=== PATIENT | female | born 1995 | race Caucasian/White ===

== ENCOUNTER 2023-03-19 09:26 | Emergency (ER) | payer BC, SELFPAY ==
--- NOTE | ~2023-03-19 | US_ITS ---
EXAMINATION:US venous doppler LE BI INDICATION:Bilateral leg swelling TECHNIQUE: Multiple grayscale, color flow and Doppler images of the right and left lower extremity de ep venous systems were obtained and reviewed. COMPARISON:No prior studies for comparison. FINDINGS: The common femoral, superficial femoral and popliteal veins demonstrate normal respiratory variation, augmentation and compressibility. Color flow is also seen within the posterior tibial, pe roneal, greater saphenous and profunda veins. IMPRESSION: 1: No lower extremity deep venous thrombosis. Reviewed, dictated and finalized at location A.
[2023-03-19 09:30] VITALS: BP 133/88; PULSE 92; RESP 16; TEMP 36.8; O2SAT 100
--- NOTE | 2023-03-19 09:50 | ED.GENADULT ---
HPI - General Adult General Chief complaint: Extremity Problem,Nontraumatic Stated complaint: itchy swollen feet Time Seen by Provider: 03/19/23 09:34 History of Present Illness HPI narrative: Paige Zavaleta is a 27 y/o female who presents with reports of dealing with some type of skin infection to her bilateral feet. She states that it all started in [place] several cuts to her feet. She said she initially tried to treat it with antibiotic creams/ it started to get worse she saw her PCP she was put on other topical creams, it got worse she tired oral antibiotics it got worse she saw dermatology they tried steroids, and treated her with antifungals and it got worse the biopsy was negative for bacteria/ negative for fungal infection and came back as contact dermatitis/ she saw podiatry and had another biopsy and currently is on two new trial creams that she states she thinks her wounds are finally slowly improving from. She states she comes today because she is having some swelling to her feet now too that has bee off and on buts seems to be getting worse. She is not interested in changing the treatment she is on for the wounds she just wants to make sure she does not have a blood clot. Related Data Allergies Allergy/AdvReac Type Severity Reaction Status Date / Time No Known Allergies Allergy Verified 03/19/23 09:32 Review of Systems Review of Systems: GENERAL: Well-appearing, well-nourished, and in no acute distress. HEAD: Normocephalic, atraumatic. EYES: PERRLA and EOMI. ENT: Nares clear, no rhinorrhea or epistaxis. Mucous membranes moist. Oropharynx without tonsillar hypertrophy exudate or other lesions. NECK: Supple. No adenopathy or masses. No carotid bruits or JVD CHEST: Clear to auscultation. No respiratory distress. No wheezes rales or rhonchi HEART: Regular rate and rhythm. No murmur heard. Normal peripheral pulses. ABDOMEN: Soft, nontender, nondistended, normal active bowel sounds. EXTREMITIES: Normal range of motion. Swelling to lower extremities SKIN: Warm, dry, rash / wounds to bilateral feet NEURO: No focal deficits. Alert and oriented x3. PSYCH: Normal mood and affect. Exam Narrative: GENERAL: Well-appearing, well-nourished, and in no acute distress. HEAD: Normocephalic, atraumatic. EYES: PERRLA and EOMI. ENT: Nares clear, no rhinorrhea or epistaxis. Mucous membranes moist. Oropharynx without tonsillar hypertrophy exudate or other lesions. NECK: Supple. No adenopathy or masses. No carotid bruits or JVD CHEST: Clear to auscultation. No respiratory distress. No wheezes rales or rhonchi HEART: Regular rate and rhythm. No murmur heard. Normal peripheral pulses. ABDOMEN: Soft, nontender, nondistended, normal active bowel sounds. EXTREMITIES: Normal range of motion. No edema. SKIN: slight vesicular appearing / papules blanchable erythema to two different areas to both feet. Swelling noted to bilateral lower extremities noted. NEURO: No focal deficits. Alert and oriented x3. PSYCH: Normal mood and affect. Course Vital Signs Vital signs: Vital Signs Temperature 36.8 C 03/19/23 09:30 Pulse Rate 92 03/19/23 09:30 Respiratory Rate 16 03/19/23 09:30 Blood Pressure 133/88 03/19/23 09:30 Pulse Oximetry 100 03/19/23 09:30 Temperature 36.8 C 03/19/23 09:30 Pulse Rate 92 03/19/23 09:30 Respiratory Rate 16 03/19/23 09:30 Blood Pressure 133/88 03/19/23 09:30 Pulse Oximetry 100 03/19/23 09:30 Medical Decision Making MDM Narrative Medical decision making narrative: Patient is noted to have blanchable erythema / raised papules/slightly vesicular appearing and scaly to lateral right ankle , right second toe, left ankle and left second toe. Rash is noted to be painful with palpation NO obvious swelling or streaking of erythema noted. Patient is currently being followed by dermatology and podiatry and is under treatme
[2023-03-19 12:05] LABS: Glucose Point of Care 95 mg/dl (65-105)
[2023-03-19 12:21] VITALS: BP 132/93; PULSE 88; RESP 18; O2SAT 98
== END 2023-03-19 12:23 | disposition home or self-care (01) ==
PROVIDERS: Emergency Provider Nurse Practitioner Family
DX: R22.43 Localized swelling, mass and lump, lower limb, bilateral (principal)
CPT/HCPCS: 82948; 93970; 99284

== ENCOUNTER 2023-07-26 10:26 | Emergency (ER) | payer OTHER, SELFPAY ==
[2023-07-26 10:33] VITALS: BP 148/86; PULSE 99; RESP 16; TEMP 36.7; O2SAT 100
[2023-07-26 10:50] VITALS: BP 148/86; PULSE 99; RESP 16; TEMP 36.7; O2SAT 100
--- NOTE | 2023-07-26 11:42 | ED.ABDPAIN ---
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 she has hx of UTI with similar symptoms prompting her visit. she denies associated fevers, flank pain or vomiting. SHe has not received abx for UTI in several months. she denies known hx of abx resistance. She is not and she denies STI risk. she has no other complaints. Related Data Home Medications Medication Instructions Recorded Confirmed azathioprine 50 mg tablet 50 mg PO DAILY 07/26/23 07/26/23 azithromycin 500 mg tablet 500 mg PO DAILY 07/26/23 07/26/23 ethambutol 400 mg tablet See Rx Instructions .Route .COMPLEX 07/26/23 07/26/23 montelukast 10 mg tablet 10 mg PO DAILY 07/26/23 07/26/23 norgestimate 0.25 mg-ethinyl 1 tablet PO DAILY 07/26/23 07/26/23 estradiol 35 mcg tablet (Sprintec (28)) Allergies Allergy/AdvReac Type Severity Reaction Status Date / Time No Known Allergies Allergy Verified 03/19/23 09:32 Review of Systems Genitourinary: Comments: refer to HPI Exam Const: General: healthy appearing, no acute distress and alert Nutritional Appearance: well nourished and obese Orientation/consciousness: patient oriented x3 Limitations: no limitations HENMT: Head: normal to inspection Ears: external ears normal Mouth: Yes Normal oral and palatal mucosa present, Yes lip normal and Yes moist mucous membranes Throat: posterior oropharynx normal and uvula midline Eyes: Conjunctivae: conjunctivae normal Pupils: Equal, round and reactive pupils present EOM: EOMs intact bilaterally Neck: Neck: normal visual inspection, no lymphadenopathy and no meningeal signs Resp: Effort & Inspection: normal respiratory effort Auscultation: clear to auscultation bilaterally Cardio: Rate: regular rate Rhythm: regular rhythm GI: GI Palp: Yes Soft to palpation, No Tenderness to palpation present (GI), No Guarding due to palpation present (GI), No Rigid due to palpation, No Hernia present, No Palpable mass present and No Rebound tenderness present Auscultation: normal bowel sounds : General: Yes bladder normal to palpation and Yes no CVA tenderness Back/Spine/Pelvis: Back: no CVA tenderness Skin: General skin exam: normal color Course Course Emergency Course: urine dip, will culture, treat for suspected UTI, encouraged PCP FU to discuss urology referral if UTI's persist. Level of Care: Express Care Visit ([id number]) Vital Signs Vital signs: Vital Signs Temperature 36.7 C 07/26/23 10:33 Pulse Rate 99 07/26/23 10:33 Respiratory Rate 16 07/26/23 10:33 Blood Pressure 148/86 H 07/26/23 10:33 Pulse Oximetry 100 07/26/23 10:33 Oxygen Delivery Room Air 07/26/23 10:33 Temperature 36.7 C 07/26/23 10:50 Pulse Rate 99 07/26/23 10:50 Respiratory Rate 16 07/26/23 10:50 Blood Pressure 148/86 H 07/26/23 10:50 Pulse Oximetry 100 07/26/23 10:50 Oxygen Delivery Room Air 07/26/23 10:50 MDM - Abdominal Pain MDM Narrative Medical decision making narrative: will treat with Septra DS, push fluids, no caffeine or ETOH, FU with PCP without fail, urine culture will be added. Differential Diagnosis Differential diagnosis: Likely other (acute cystitis, urethritis, pyelonephritis) Lab Data Labs: Urine Glucose Negative Reference Range: Negative Urine Glucose Negative Reference Range: Negative Urine Bilirubin Negative Reference Range: Negative Urine Bilirubin Negative Reference Range: Negative
== END 2023-07-26 11:50 | disposition home or self-care (01) ==
PROVIDERS: Emergency Provider Nurse Practitioner Family
DX: N30.00 Acute cystitis without hematuria (principal); B95.1 Streptococcus, group B, as the cause of diseases classified elsewhere
CPT/HCPCS: 81003; 87086; 99213; G0463

== ENCOUNTER 2024-01-23 18:55 | Emergency (ER) | payer OTHER, SELFPAY ==
[2024-01-23 19:09] VITALS: BP 138/84; PULSE 96; RESP 18; TEMP 37; O2SAT 100
--- NOTE | 2024-01-23 20:04 | ED.FEMALEGU ---
HPI - Female Genitourinary General Chief complaint: Urogenital-Female Stated complaint: Urinary Problem History of Present Illness HPI Narrative: patient is a 28-year-old female, presents to [facility] with 2 day history of dysuria, followed by bilateral flank pain over the past 24 hours. She denies associated fevers. She does endorse increased frequency and urgency. She has history of previous UTIs and felt similarly. She denies chance of , she has no vaginal symptoms or concerns for STI. She is not taking any medication currently for symptom relief. She is on antibiotic therapy for a chronic skin infection, is at home I sent an atypical antibiotic, and under infectious disease care. She has no history of antibiotic resistance with previous UTI treatment. Related Data Home Medications Medication Instructions Recorded Confirmed azathioprine 50 mg tablet 50 mg PO DAILY 07/26/23 01/23/24 ethambutol 400 mg tablet See Rx Instructions .Route .COMPLEX 07/26/23 01/23/24 montelukast 10 mg tablet 10 mg PO DAILY 07/26/23 01/23/24 norgestimate 0.25 mg-ethinyl 1 tablet PO DAILY 07/26/23 01/23/24 estradiol 35 mcg tablet (Sprintec (28)) dicyclomine 10 mg capsule 10 mg PO QID 01/23/24 01/23/24 Allergies Allergy/AdvReac Type Severity Reaction Status Date / Time No Known Allergies Allergy Verified 01/23/24 19:37 Review of Systems Genitourinary: Comments: refer to HPI Exam Const: General: healthy appearing Nutritional Appearance: obese Orientation/consciousness: patient oriented x3 Limitations: no limitations HENMT: Head: normal to inspection Ears: external ears normal Face and sinus: normal facial exam Throat: posterior oropharynx normal and uvula midline Eyes: Conjunctivae: conjunctivae normal Pupils: Equal, round and reactive pupils present Neck: Neck: normal visual inspection and no meningeal signs Chest: Chest palpation & inspection: normal inspection of the chest Resp: Effort & Inspection: normal respiratory effort Auscultation: clear to auscultation bilaterally Cardio: Rate: regular rate Rhythm: regular rhythm GI: GI Palp: Yes Soft to palpation, No Tenderness to palpation present (GI), No Guarding due to palpation present (GI), No Rigid due to palpation, No Hernia present, No Palpable mass present and No Rebound tenderness present Other: No CVA tenderness to percussion reported bilaterally, patient is tender to palpation of the lumbar paraspinal muscles only, no palpable spasm. Back/Spine/Pelvis: Back: no CVA tenderness Skin: General skin exam: normal color Neuro: General: patient oriented x3 Cranial nerves: Yes Nystagmus not present Speech: normal speech Gait exam (Neuro): Normal gait present Course Course Emergency Course: patient has leukocytes present in urine, will reflex for culture. Will treat empirically with Bactrim DS at this time, follow-up closely with PCP if symptoms not improving in 2-3 days. She is encouraged to proceed to the emergency room immediately if she develops fevers or if her flank pain worsens as an early pyelonephritis may be present. Patient is agreeable plan. Level of Care: Express Care Visit ([id number]) Vital Signs Vital signs: Vital Signs Temperature 37.0 C 01/23/24 19:09 Pulse Rate 96 01/23/24 19:09 Respiratory Rate 18 01/23/24 19:09 Blood Pressure 138/84 01/23/24 19:09 Pulse Oximetry 100 01/23/24 19:09 Oxygen Delivery Room Air 01/23/24 19:09 Temperature 37.0 C 01/23/24 19:09 Pulse Rate 96 01/23/24 19:09 Respiratory Rate 18 01/23/24 19:09 Blood Pressure 138/84 01/23/24 19:09 Pulse Oximetry 100 01/23/24 19:09 Oxygen Delivery Room Air 01/23/24 19:09 MDM - Female Genitourinary MDM Narrative Medical decision making narrative: Bactrim DS, push fluids, follow-up with PCP Differential Diagnosis Differential diagnosis: Likely urinary tract infection, bacterial vaginosis and vaginitis
[2024-01-24 11:36] LABS: EDUAAPPEAR Cloudy; EDUABILI Negative; EDUABLOOD 2+; EDUACOLOR1 Yellow; EDUAGLUCOSE Negative; EDUAKETONE Negative; EDUALEUKO 1+; EDUANITRATE Negative; EDUAPROTEIN 2+; EDUAUROBILI 0.2
== END 2024-01-23 20:12 | disposition home or self-care (01) ==
PROVIDERS: Emergency Provider Nurse Practitioner Family
DX: N39.0 Urinary tract infection, site not specified (principal); B95.7 Other staphylococcus as the cause of diseases classified elsewhere
CPT/HCPCS: 81003; 87077; 87086; 87088; 99213; G0463

== ENCOUNTER 2024-06-01 08:14 | Emergency (ER) | payer OTHER, SELFPAY ==
[2024-06-01 08:19] VITALS: BP 131/81; PULSE 105; RESP 16; TEMP 36.9; O2SAT 99
--- NOTE | 2024-06-01 08:22 | ED_ITS ---
HPI - URI/Sore Throat General Chief Complaint: Upper Respiratory Infection Stated Complaint: COUGH/CONGESTION/SINUS Time Seen by Provider: 06/01/24 08:31 Source: patient, RN notes reviewed and old records reviewed Mode of arrival: ambulatory Limitations: no limitations History of Present Illness HPI Narrative: 28-year-old female presents to the [facility] with 10 day history of cough, sinus congestion. Has taken Mucinex. Onset (ago): day(s) (10) Treatments prior to arrival: cold medicine Related Data Home Medications ?Medication ?Instructions ?Recorded ?Confirmed ?Last Taken ?Type azathioprine 50 mg tablet 50 mg PO DAILY 07/26/23 01/23/24 Unknown History ethambutol 400 mg tablet See Rx Instructions .Route .COMPLEX 07/26/23 01/23/24 Unknown History montelukast 10 mg tablet 10 mg PO DAILY 07/26/23 01/23/24 Unknown History norgestimate 0.25 mg-ethinyl 1 tablet PO DAILY 07/26/23 01/23/24 Unknown History estradiol 35 mcg tablet (Sprintec ()) dicyclomine 10 mg capsule 10 mg PO QID 01/23/24 01/23/24 Unknown History Allergies Allergy/AdvReac Type Severity Reaction Status Date / Time No Known Allergies Allergy Verified 06/01/24 08:39 Review of Systems Review of Systems: All systems reviewed & are unremarkable except as noted in HPI and below Constitutional: Constitutional: Reports no additional constitutional complaints ENT: Reports as per HPI, Reports nasal congestion and Reports nasal discharge Cardiovascular: Cardiovascular: Reports no additional cardiovascular complaints, Denies chest pain and Denies dyspnea Respiratory: Respiratory: Reports as per HPI, Denies chest congestion, Reports cough and Denies dyspnea Musculoskeletal: Musculoskeletal: Reports no additional musculoskeletal complaints Integumentary/Breasts: Skin/Breast: Reports system reviewed and no additional complaints, except as docu PMFSH Past Medical History Medical History (Updated 06/01/24 @ 10:39 by Debo Valdez APRN) Ulcerative colitis Comments At the time of my signature, I reviewed and agree with the nursing past medical, surgical, social, and family history. There is no relevant family history pertinent to the patient complaint. Exam Const: General: cooperative, healthy appearing, comfortable, no acute distress, well developed, alert, tired appearing and well nourished Nutritional Appearance: well nourished and obese Orientation/consciousness: patient oriented x3 Limitations: no limitations HENMT: Head: normal to inspection Ears: hearing grossly normal bilaterally, external ears normal, TM's normal bilaterally, mastoids normal, no periauricular adenopathy and Abnormal EAC present Face/Nose/Sinus: Normal external nose present, Normal nares present, No nasal polyps present and Nasal discharge present clear bilateral Face and sinus: normal facial exam, sinuses nontender and face symmetric Mouth: Yes Normal oral and palatal mucosa present, Yes lip normal, Yes tongue normal and Yes moist mucous membranes Throat: posterior oropharynx normal, tonsils normal, uvula midline and postnasal drainage Eyes: General: appearance normal, both eyes and all related structures Alignment and Position: alignment normal Neck: Neck: normal visual inspection, full ROM, no lymphadenopathy and no meningeal signs Chest: Chest palpation & inspection: normal inspection of the chest Resp: Effort & Inspection: normal respiratory effort and able to speak in complete sentences Auscultation: clear to auscultation bilaterally, no crackles, no rales, no rhonchi and no wheezes Cardio: Rate: regular rate Skin: General skin exam: normal color and no rashes or lesions noted Neuro: General: patient oriented x3, gait normal, moves all extremities and no meningeal signs Cognition (Neuro): normal cognition Speech: normal speech Gait exam (Neuro): Normal gait present Extrem: General: normal to inspection, full ROM, capillary refill normal and normal gait Psych: Appearance: grossly normal and well kempt Mental Status: mental status grossly normal Speech and movement: Normal speech and movement present and Clear speech present Affect: normal affect Attitude: cooperative Course Course Level of Care: Express Care Visit Vital Signs Vital signs: Vital Signs Temperature 98.5 F 06/01/24 08:19 Pulse Rate 105 H 06/01/24 08:19 Respiratory Rate 16 06/01/24 08:19 Blood Pressure 131/81 06/01/24 08:19 Pulse Oximetry 99 06/01/24 08:19 Oxygen Delivery Room Air 06/01/24 08:19 Temperature 98.5 F 06/01/24 08:19 Pulse Rate 105 H 06/01/24 08:19 Respiratory Rate 16 06/01/24 08:19 Blood Pressure 131/81 06/01/24 08:19 Pulse Oximetry 99 06/01/24 08:19 Oxygen Delivery Room Air 06/01/24 08:19 Reviewed MDM - URI/Sore Throat MDM Narrative Medical decision making narrative: Patient sitting comfortably in exam room. Nontoxic, vitals stable. Patient in no acute distress. Patient with 10 day history of URI symptoms Patient with sinusitis, bronchitis, will cover with doxycycline, over-the-c ounter products. Patient appropriate for outpatient treatment and follow-up Discharge instructions reviewed with patient, as well as provided in writing per nursing staff. The instructions also include specific and strict return/GO TO THE ER as well as f/u information. All questions have been answered, and the patient deny any further questions with discharge and discharge plan. Some parts of this dictation were generated by voice recognition software and may contain typographical and/or grammatical inaccuracies. Differential Diagnosis Differential diagnosis: Likely upper respiratory infection, otitis media, sinusitis, viral infection, bronchitis, influenza and pharyngitis Critical Care Time Critical Care Time Critical Care Time: No Discharge Plan Discharge Clinical Impression: PND (post-nasal drip), Bronchitis Sinusitis Qualifiers: Sinusitis location: unspecified location Chronicity: acute Recurrence: not specified as recurrent Qualified Code(s): J01.90 - Acute sinusitis, unspecified Upper respiratory infection Qualifiers: URI type: unspecified viral URI Qualified Code(s): J06.9 - Acute upper respiratory infection, unspecified Patient Disposition: Home, Self-Care Condition: Stable Instructions: Antibiotic Form, Sinusitis (ED), Acute Bronchitis (ED), Postnasal Drip (DC) Additional Instructions: It is very important to treat your symptoms. Drink plenty of water, Gatorade, Pedialyte, ice pops or Jell-O. -Alternate Tylenol and Motrin per package directions for fever or pain. You can alternate every 4 hours -Antihistamine medication such as Zyrtec/Claritin/Danette during the day can help improve symptoms. -doing daily nasal irrigations can help relieve pressure your sinuses. Things like a Neti pot -Use Flonase twice a day for 5 days then daily to help reduce the inflammation and dry up your sinuses. -You can also use Mucinex. Be sure to drink plenty of water with this medication at least 8 ounces with every dose and it is important to drink 8 to 10 glasses of water per day. Water is a natural decongestant -Eat and drink things that are easy to swallow, like tea or soup, or popsicles. -Oral rinses such as: Salt water gargles and/or may use topical anesthetic (eg. Chloraseptic spray) or lozenges to relieve dryness or throat pain). -Frequent hand washing or hand mohs surgeon is one of the best ways to prevent spr ead of infection. -Using a vaporizer or humidifier at night will also help thin secretions and help with coughing up phlegm. -Follow up with primary care provider in 7-10 days if condition is not improving - For new or worsening symptoms go directly to the nearest ER Patient Language: Bermudian Prescriptions: New doxycycline monohydrate 100 mg tablet 100 mg PO BID Qty: 14 0RF fluticasone propionate [Flonase Allergy Relief] 50 mcg/actuation spray,suspension 2 spray intranasal DAILY Qty: 16 0RF Rx Instructions: administer into each nostril No Action norgestimate-ethinyl estradiol [Sprintec (28)] 0.25-35 mg-mcg tablet 1 tablet PO DAILY azathioprine 50 mg tablet 50 mg PO DAILY montelukast 10 mg tablet 10 mg PO DAILY ethambutol 400 mg tablet See Rx Instructions .ROUTE .COMPLEX Rx Instructions: as prescribed dicyclomine 10 mg capsule 10 mg PO QID Follow-up/Referrals: UNKNOWN,DOCTOR [Primary Care Provider] - Time of Disposition: 08:41
--- OUTSIDE RECORDS SUMMARY | 2024-06-08 07:41 | XMS_ITS | Encounter Summary ---
Author Organization [facility] Address [address] [place] [address] Care Team Providers Care Sharepoint Specialist Name Role Phone Leta Villanueva MD Primary Care Provider Unavailabl e Reason for Visit * Reason Comments Headache Sore Throat 3 days Fatigue Congestion Cough Encounter Details Date Type Department Care Team ([facility] st Contact Info) Description 06/30/2016 2:20 PM CLINICAL MARKETING MANAGER Office Visit [facility] AT [address] [phone] Provider, [facility] Viral upper respiratory illness (Primary Dx) Social History Tobacco Use Types Packs/Day Years Used Date Smoking Tobacco: Never Sex and Gender Information Value Date Recorded Sex Assigned at Not on file Gender Identity Not on file Sexual Orientation Not on file documented as of this encounter Last Filed Vital Signs Vital Sign Reading Time Taken Comments Blood Pressure 102/62 06/30/2016 2:30 PM CLINICAL MARKETING MANAGER Pulse 108 06/30/2016 2:30 PM CLINICAL MARKETING MANAGER Temperature 36.5 ??C (97.7 ??F) 06/30/2016 2:30 PM CS T Respiratory Rate 18 06/30/2016 2:30 PM CLINICAL MARKETING MANAGER Oxygen Saturation 98% 06/30/2016 2:30 PM CLINICAL MARKETING MANAGER Inhaled Oxygen Concentration - - Weight 108.9 kg (240 lb) 06/30/2016 2:30 PM CLINICAL MARKETING MANAGER Height 180.3 cm (5' 11 ) 06/30/2016 2:30 PM CLINICAL MARKETING MANAGER Body Mass Index 33.47 06/30/2016 2:30 PM CLINICAL MARKETING MANAGER Body Mass Index Percentile 96.31% 06/30/2016 2:3 0 PM CLINICAL MARKETING MANAGER Growth Chart: CDC (Girls, 2- 20 Years) documented in this encounter Patient Instructions * Patient Instructions* Wanda Helton APRN-CNP - 06/30/2016 2:55 PM CLINICAL MARKETING MANAGER Viral Syndrome in Children WHAT YOU NEED TO KNOW: What is viral syndrome? Viral syndrome is a general term used for a viral infection that has no clear cause. Your child may have a fever, muscle aches, or vomiting. Other symptoms include a cough, chest congestion, or nasal congestion (stuffy nose). How is viral syndrome diagnosed and treated? Your child's healthcare provider will ask about your child's symptoms and examine him. An illness caused by a virus usually goes away in 7 to 10 days without treatment. Your healthcare provider may recommend the following to manage your child's symptoms: ?? Acetaminophen decreases pain and fever. It is available without a doctor's order. Ask your child's healthcare provider how much medicine to give your child and how often to give it. Follow directions. Acetaminophen can cause liver damage if not taken correctly. ?? NSAIDs , such as ibuprofen, help decrease swelling, pain, and fever. This medicine is available with or without a doctor's order. NSAIDs can cause stomach bleeding or kidney problems in certain people. If your child takes blood thinner medicine, always ask if NSAIDs are safe for him. Always readthe medicine label and follow directions. Do not give these medicines to children under 6 months of age without direction from your child's healthcare provider. ?? A cool-mist humidifier may help your child breathe easier if he has nasal or chest congestion. ?? Saline nose drops may help your baby if he has nasal congestion. Place a few saline drops into each nostril and then use a suction bulb to suction the mucus. How can I care for my child? ?? Give your child plenty of liquids to prevent dehydration. Examples include water, ice pops, flavored gelatin, and broth. Ask how much liquid your child should drink each day and which liquids are best for him. You may need to give your child an oral electrolyte solution if he is vomiting or has diarrhea. Do not give your child liquids with caffeine. Liquids with caffeine can make dehydration worse. ?? Have your child rest. Rest may help your child feel better faster. Have your child take several naps throughout the day. ?? Have your child wash his hands frequently. Wash your baby's or young child's hands for him. Thiswill help prevent the spread of germs to others. Use soap and water. Use gel hand pillowcase cleaner when soapand water are not available. ?? Check your child's temperature as directed. This will help you monitor your child's condition. Ask your child's healthcare provider how often to check his temperature. Call 911 for the following: ?? Your child has a seizure. ?? Your child has trouble breathing or he is breathing very fast. ?? Your child's lips, tongue, or nails, are blue. ?? Your child is leaning forward and drooling. ?? Your child cannot be woken. When should I seek immediate care? ?? Your child complains of a stiff neck and a bad headache. ?? Your child has a dry mouth, cracked lips, cries without tears, or is dizzy. ?? Your child's soft spot on his head is sunken in or bulging out. ?? Your child coughs up blood or thick yellow, or green, mucus. ?? Your child is very weak or confused. ?? Your child stops urinating or urinates a lot less than normal. ?? Your child has severe abdominal pain or his abdomen is larger than normal. When should I contact my child's healthcare provider? ?? Your child has a fever for more than 3 days. ?? Your child's symptoms do not get better with treatment. ?? Your child's appetite is poor or he has poor feeding. ?? Your child has a rash, ear pain. or a sore throat. ?? Your child has pain when he urinates. ?? Your child is irritable and fussy, and you cannot calm him down. ?? You have questions or concerns about your child's condition or care. CARE AGREEMENT: You have the right to help plan your child's care. Learn about your child's health condition and how it may be treated. Discuss treatment options with your child's caregivers to decide what care you want for your child. The above information is an hiv/aids care nurse only. It is not intended as medicaladvice for individual conditions or treatments. Talk to your doctor, nurse or pharmacist before following any medical regimen to see if it is safe and effective for you. ?? 2016 [employer] Information is for End User's use only and may not be sold, redistributed or otherwise used for commercial purposes. All illustrations and images included in CareNotes?? are the copyrighted property of [employer], [employer]. or [employer]. ICAL MARKETING MANAGER documented in this encounter Progress Notes * Wanda Helton APRN-CNP - 06/30/2016 2:41 PM CST [facility] Chief Complaint Patient presents with ??? Headache ??? Sore Throat 3 days ??? Fatigue ??? Congestion ??? Cough SUBJECTIVE: HPI Comments: Symptoms have been present for approx 3 days. Has sore throat, congestion, cough, fatigue, and body aches. Has used Aleve OTC with no relief of symptoms. Has been exposed to illness. No past medical history on file. No current outpatient prescriptions on file prior to visit. No current facility-administered medications on file prior to visit. Past Surgical History Procedure Laterality Date ??? Tonsillectomy History Social History ??? Marital status: Single Spouse name: N/A ??? Number of children: N/A ??? Years of education: N/A Occupational History ??? Not on file. Social History Main Topics ??? Smoking status: Never Smoker ??? Smokeless tobacco: Not on file ??? Alcohol use: Not on file ??? Drug use: Not on file ??? Sexual activity: Not on file Other Topics Concern ??? Not on file Social History Narrative No family history on file. Current Outpatient Prescriptions Medication Sig Dispense Refill ??? DIVALPROEX SODIUM PO ??? Naproxen Sodium (ALEVE PO) ??? predniSONE (DELTASONE) 10 MG tablet Take 1 Tab by mouth 2 times daily for 5 days Reasons: Inflammation 10 Tab 0 No current facility-administered medications for this visit. No Known Allergies REVIEW OF SYSTEMS: Review of Systems Constitutional: Positive for chills and malaise/fatigue. Negative for fever. HENT: Positive for congestion and sore throat. Negative for ear pain. Respiratory: Positive for cough and sputum production. Gastrointestinal: Positive for nausea. Negative for diarrhea and vomiting. Neurological: Positive for headaches. OBJECTIVE: General appearance: alert, well appearing, and in no distress. BP 102/62 (BP SITE: LEFT ARM, BP POSITION: SITTING, BP CUFF SIZE: Large Adult) Pulse 108 Temp 97.7 ??F (Oral) Resp 18 Ht 1.803 m (5' 11 ) Wt 108.9 kg (240 lb) SpO2 98% BMI 33.47 kg/m2 Physical Exam Constitutional: She is oriented to person, place, and time and well-developed, well-nourished, and in no distress. Vital signs are normal. She has a sickly appearance. HENT: Head: Normocephalic. Right Ear: Hearing, tympanic membrane, external ear and ear canal normal. Left Ear: Hearing, tympanic membrane, external ear and ear canal normal. Nose: Mucosal edema and rhinorrhea present. Right sinus exhibits no maxillary sinus tenderness and no frontal sinus tenderness. Left sinus exhibits no maxillary sinus tenderness and no frontal sinus tenderness. Mouth/Throat: Uvula is midline and mucous membranes are normal. PND noted on exam. Neck: Normal range of motion. Neck supple. Cardiovascular: Normal rate, regular rhythm and normal heart sounds. Pulmonary/Chest: Effort normal and breath sounds normal. Lymphadenopathy: Head (right side): No submandibular, no tonsillar and no posterior auricular adenopathy present. Head (left side): No submandibular, no tonsillar and no posterior auricular adenopathy present. Neurological: She is alert and oriented to person, place, and time. Gait normal. Skin: Skin is warm and dry. Psychiatric: Mood and affect normal. Vitals reviewed. ASSESSMENT: Office Visit on 06/30/16 INFLUENZA A+B - POINT OF CARE (AMB) Result Value Ref Range Influenza A Ag Negative Negative Influenza B Ag Negative Negative Influenza Control positive NEGATIVE - POSITIVE Influenza Lot# [id number] Influenza Expir Date 12/07/2017 Encounter Diagnosis Name Primary? Viral upper respiratory illness Yes PLAN: Orders Placed This Encounter ??? INFLUENZA A+B - POINT OF CARE (AMB) ??? predniSONE (DELTASONE) 10 MG tablet Sig: Take 1 Tab by mouth 2 times daily for 5 days Reasons: Inflammation Dispense: 10 Tab Refill: 0 Drink plenty of fluids Get plenty of rest Cool mist humidifier Tylenol or Ibuprofen per package direction for discomfort\fever (if not allergic) Monitor for worsening symptoms. If any occur, patient is to follow-up with PCM, UC, or ER for further evaluation. Understanding voiced. ICAL MARKETING MANAGER documented in this encounter Plan of Treatment Not on file documented as of this encounter Procedures Procedure Name Priority Date/Time Associated Diagnosis Comments INFLUENZA A+B - POINT OF CARE (AMB) Routine 06/30/2016 Viral upper respiratory illness documented in this encounter Results * INFLUENZA A+B - POINT OF CARE (AMB) (06/30/2016) Influenza A Antigen Rapid Negative Negative Influenza B Antigen Rapid Negative Negative Influenza Internal Control positive NEGATIVE - POSITIVE Influenza Lot Number [id number] Influenza Expiration Date 12/07/2017 Other NASOPHARYNGEAL SWAB / Unknown 06/30/2016 [facility] - POINT O F CARE ORDERABLES documented in this encounter Visit Diagnoses Diagnosis Viral upper respiratory illness- Primary Acute upper respiratory infections of unspecified site documented in this encounter Care Teams Sharepoint Specialist Relationship Specialty Start Date End Date Leta Villanueva MD PCP - General 02/29/16 07/11/21 documented as of this encounter
--- OUTSIDE RECORDS SUMMARY | 2024-06-08 07:41 | XMS_ITS | Encounter Summary ---
Author Organization [facility] Address [address] [place] [address] Care Team Providers Care Sports Anchor Name Role Phone Karson Payne MD Primary Care Provider [phone] Reason for Visit * Reason Comments Refill Request Encounter Details Date Type Department Care Team (Late st Contact Info) Description 01/04/2022 Refill [facility] [address] [place] [address] Raysa Asher, BOARD CERTIFIED MUSIC THERAPIST-SADDLE TREE STITCHER [address] [place] [address] Refill Request Social History Tobacco Use Types Packs/Day Years Used Date Smoking Tobacco: Passive Smo ke Exposure - Never Smoker Smokeless Tobacco: Never Alcohol Use Standard Drinks/Week Comments Yes 1 (1 standard drink = 0.6 oz pur e alcohol) 1 drink weekly Sex and Gender Information Value Date Recorded Sex Assigned at Not on file Gender Identity Not on file Sexual Orientation Not on file documented as of this encounter Miscellaneous Notes * Addendum Note - Ahmet Daigle MD - 01/05/2022 11:48 AM CDTAddended by: AHMET DAIGLE on: 01/05/2022 11:48 AM Modules accepted: Orders * Telephone Encounter - Ahmet Daigle MD - 01/05/2022 11:47 AM CDT I saw pt for acute problem visit Has upcoming annual first front ventilator I ordered her ocp she had previously been taking * Telephone Encounter - Genevieve Adams LPN - 01/04/2022 3:35 PM CDT Last visit Dianna daigle 11/17 Next visit 02/17 Last refill estarylla 10/17 Will send refill under Dr.N Daigle as she is prescribing physician. documented in this encounter Plan of Treatment Not on file documented as of this encounter Visit Diagnoses Diagnosis Breakthrough bleeding on control pills Metrorrhagia documented in this encounter Care Teams Sports Anchor Relationship Specialty Start Date End Date Karson Payne MD [address] [phone] PCP - General 07/12/21 documented as of this encounter
--- OUTSIDE RECORDS SUMMARY | 2024-06-08 07:41 | XMS_ITS | Encounter Summary ---
Author Organization [facility] Address [address] [place] [address] Care Team Providers Care Mooner Name Role Phone Karson Payne MD Primary Care Provider Reason for Visit * Reason Comments Vaginal Bleeding Test of cure Encounter Details Date Type Department Care Team (Late st Contact Info) Description 10/29/2021 2:30 PM CDT Office Visit [facility] Obstetrics Gynecology and Women's Health [address], [place] [id number] Kelsie Mitchell MD [address], [place] [id number] Irregular menstrual bleeding (Primary Dx); Screen for STD (sexually transmitted disease); Vaginitis and vulvovaginitis; Surveillance of contraceptive pill Social History Tobacco Use Types Packs/Day Years [...] Sign Reading Time Taken Comments Blood Pressure 122/82 10/29/2021 2:17 PM CDT Pulse - - Temperature - - Respiratory Rate - - Oxygen Saturation - - Inhaled Oxygen Concentration - - Weight 133.4 kg (294 lb) 10/29/2021 2:17 PM CDT Height 180.3 cm (5' 11 ) 10/29/2021 2:17 PM CDT Body Mass Index 41 10/29/2021 2:17 PM CDT documented in this encounter Patient Instructions * Patient Instructions* Kelsie Mitchell MD - 10/29/2021 9:41 AM CDT If you receive a survey about your visit today, I greatly appreciate your completion- It is our goal to provide you with EXCELLENT CARE & I REALLY, SINCERELY HOPE YOU HAVE AN EXTRAORDINARY EXPERIENCE AT [facility]! We appreciate your feedback as we are always looking for ways to improve the patient experience in our office, and I would also like to know if you've received excellent care today! Referrals Appreciated. We accept new patients. We provide a wide spectrum of medical care involvingWomen's health. If you know of any family members or friends that need an [employer] provider, I would be happy to see them. control pills control pills: Take one pill every day and try to take it at about the same time. If you pito day, take the missed pill immediately and follow the instructions that come with the medication or call our office. If you miss more than two pills, you will need to use a back-up form of contraception for the remainder of the pack. Any medication can have side effects. Some common side effects of control pills can be nausea, headache, and breakthrough bleeding. can still occur while taking control pills, especially if the pills are not taken correctly. High blood pressure and blood clots are rare but serious side effects. Please call our office if you experience severe headache, leg pain, GI symptoms or continued/heavy breakthrough bleeding. How to Contact Us Between Office Visits If you need to make an appointment with your doctor, please do so before you leave today. If you need to check your schedule prior to making your next appointment, please call us at [phone] as soon as possible to schedule. For scheduling routine appointments, requesting refills or leaving a message for your doctor, the office phone is [phone]. You will be given options to get to the assistance you need. Phone lines are open from 8:00 am to 4:30 pm Monday through Monday. All prescription refills must be requestedduring regular office phone hours. Our fax number is [phone]. Also as FYI, to shorten wait times on the phone, our office has created a Triage Nurse Line. Our office triage nurses for the [employer] are available during regular business hours toarrange for medication refills or routine medical questions. To speak with a Registered Nurse, please call [phone], Option 3, then 4. To cancel, reschedule, or make an appointment, please call [phone], Option 1, then 1. You have the option of using the [employer] [facility] for non-urgent questions, to view lab results, renew prescriptions and make appointments. If you have questions AND for a quicker response and since I'm not always in the office or available during the day, please call our TRIAGE NURSES in the office. [phone] Thanks! Appointments We will make every effort to maintain your scheduled appointment time, although emergencies may cause a delay. We will do her best to keep you informed of any schedule issues, and will be happy to reschedule your appointment if needed, at your convenience. Please arrive 10 minutes prior to your scheduled time to update insurance and other pertinent information. Please allow 24 hours when canceling or rescheduling appointments to better accommodate other patients. Reminder: If you see any other physicians, specialists, or go to any urgent care centers, hospitals/ ER's - have them send me any notes and reports. [facility] Guidelines for Vulvar Skin Care NOTE: The goal is to promote healthy vulvar skin. This is done by decreasing and/or removing any chemical, moisture, or rubbing (friction). Any products listed below have been suggested for use because of their past success in helping to decrease or relieve vulvar/vaginal itching and burning. LAUNDRY PRODUCTS Use a detergent free of dyes, enzymes and perfumes (such as ALL-Free and Clear or Earth-Rite) on any clothing that comes in contact with your vulva such as your underwear, exercise clothes, towels, or pajama bottoms. Use 1/3 to 1/2 the suggested amount per load. Other clothing may be washed in the laundry soap of your choice. Do not use a fabric softener in the washer or dryer on these articles of clothing. If you do use dryer sheets with the rest of your clothes, for any loads, you must hang dry your underwear, towels, and any other clothing that comes in contact with your vulva. Stain Removing Products. Soak and rinse in clear water all underwear and towels on which you have used a stain removing product. Then wash in your regular washing cycle. This removes as much of the product as possible. CLOTHING Wear white all cotton underwear, not nylon with a cotton crotch. Cotton allows air in and moisture out. Thong or G-string type underwear is not recommended on a daily basis. Avoid pantyhose. If you must wear them, cut out the javon crotch (if you cut out the crotch be sure to leave about 1/4 to 1/2 inch of fabric from the seam to prevent running) or wear thigh high hose. Many stores now carry thigh high nylons. Avoid tight clothing, especially clothing made of synthetic fabrics. Remove wet bathing and exercise clothing as soon as you can. BATHING AND HYGIENE Avoid bath soaps, lotions, gels, etc. which contain perfumes. These may smell nice but can be irritating. This includes many baby products and feminine hygiene products marked gentle or mild . We suggest any of the following soaps: Dove-Hypoallergenic, Neutrogena, Basis, or Pears. Do not use soap directly on the vulvar skin just warm water and your hand will keep the vulvar area clean without irritating the skin. Avoid all bubble baths, bath salts, and scented oils. Do not scrub vulvar skin with a washcloth, washing with your hand is adequate for good cleaning. Do not use hot water while bathing or showering. Only luke-warm water should only be used. Pat dry rather than rubbing with a towel or use a hairdryer on a cool setting to dry the vulva. Baking Soda soaks. Soak in lukewarm (not hot) bath water with 4-5 tablespoons of baking soda to help soothe vulvar itching and burning. A sitz bath that goes on the toilet is best. Soak 1 to 3 times a day for 10-15 minutes when you have vulvar symptoms. Use white, unscented toilet paper. If paper has a perfumed scent or lotion, avoid using it. Avoid wiping after urinating; blot or dab only. Avoid all feminine hygiene sprays, perfumes, adult, or baby wipes. Pour lukewarm water over the vulva after urinating if urine causes burning of the skin. Pat dry rather than rubbing with a towel. Avoid the use of deodorized pads and tampons. Tampons should be used when the blood flow is heavy enough to soak one tampon in four hours or less. Tampons are safe for most women, but wearing them too long or when the blood flow is light may result in vaginal infection, increased discharge, odor, or toxic shock syndrome. Also, use only pads that have a cotton liner that comes in contact with yourskin (no dry weave pads). Do not use lclf-kfx-knbhhpa creams or ointments until you ask your health care provider. When buying ointments, be sure that they are paraben and fragrance free. Small amounts of Coconut Oil, extra virgin olive oil, vegetable oil, or solid shortening may be applied to your vulva as often as needed to protect and moisturize the skin. It also helps to decrease skin irritation during your period, and when you urinate. DO NOT DOUCHE. Baking soda soaks will help rinse away extra discharge and help with odor. DO NOT SHAVE, wax, or laser the vulvar area (the bikini line is ok). Some women may have problems with chronic dampness. Keeping dry is important. Do not wear pads daily. Choose cotton fabrics whenever you can. Keep an extra pair of underwear with you in a small bag and change if you become damp during the day at work/school. Gold Frederick Powder or Zeosorb Powder may be applied to the vulva and groin area one to two times per day to help absorb moisture Dryness and irritation during intercourse may be helped by using a lubricant. Use a small amount ofa pure vegetable oil/olive oil or Crisco (solid or oil). The vegetable oils contain no chemicals toirritate vulvar/vaginal skin. Vegetable oils will rinse away the water and will not increase you changes of infection. Water-based products like K-Y Jelly tend to dry before intercourse is over and also contain chemicals that can irritate your vulvar skin. If may be helpful to use a non-lubricated,non-spermicidal condom, and use vegetable oil as the lubricant. This will help keep the semen off the skin which can decrease the burning and irritation after intercourse. CONTROL OPTIONS All hormonal contraceptives will have an effect on vaginal secretions but should not increase your frequency of vaginitis. Lubricated condoms, contraceptive jellies, creams, or sponges may cause itching and burning. Ask your health care provider for help. The use of latex condoms with a vegetable oil as a lubricant (#15 above) is suggested to protect your skin. Oil based lubricants may affect the integrity of condoms when used for control or prevention of sexually transmitted diseases. Out experience has not found this to be a problem with vegetable based oils. However, the Centers for Disease Control recommends that condoms not be used withany oil based lubricants for control of prevention of sexually transmitted disease. Human Papillomavirus (HPV) Vaccination Women's Health What is human papillomavirus (HPV)? Human papillomavirus (HPV) is a virus. Like all viruses, HPV causes infection by entering cells. Once inside a cell, HPV takes control of the cell???s internal machinery and uses it to make copies ofitself. These copies then infect other nearby cells. How many types of HPV are there? There are more than 100 types of HPV. About 40 types infect the genital area of men and women and are spread by virt-lb-rgcn contact during vaginal, anal, or oral sex. Genital HPV infection can occureven if you do not have sexual intercourse. How common is HPV infection? HPV infection is the most common sexually transmitted infection (STI) in the [place]. Almost everyone who is sexually active will get an HPV infection at some point during their life. What are the signs and symptoms of HPV infection? Like many other STIs, genital HPV infection often has no signs or symptoms. The infected person usually is not aware that he or she has been infected and can unknowingly pass the infection to others. What diseases are caused by HPV? HPV can cause the following diseases: Genital warts--About a dozen types of HPV cause genital warts. These types are called ???low-risk types.?? Most cases of genital warts are caused by just two low-risk types of HPV: 1) type 6 and 2) type 11. Genital warts are growths that can appear on the outside or inside of the vagina or on the penis and can spread to nearby skin. Genital warts also can grow around the anus, on the vulva, or on the cervix. Genital warts are not cancer and do not turn into cancer. Warts can be removed with medication or surgery. Cancer--At least 13 types of HPV are linked to cancer of the cervix, anus, vagina, penis, mouth, and throat. Types of HPV that cause cancer are known as ???high-risk types.?? Most cases of HPV-related cancer are caused by just two high-risk types of HPV: 1) type 16 and 2) type 18. Does being infected with HPV mean I am going to get genital warts or cancer? No. In most people, the immune system fights most high-risk and low-risk HPV infections and clears them from the body. What happens if my immune system does not fight off my HPV infection? Infections that are not cleared from the body are called persistent infections. A persistent infection with a high-risk HPV type can cause cells to become abnormal and can lead to a condition called precancer. It usually takes years for this to happen. Cervical cancer screening can detect signs of abnormal cell changes of the cervix and allows early treatment so they do not become cancer. What is the best way to protect against HPV infection? The best way to protect against HPV infection is to get the HPV vaccine. Three vaccines are available that protect against HPV infections. All three vaccines protect against the two HPV types (16 and18) that are the most common cause of cancer and precancer. The vaccines differ in the other HPV types they protect against: Cervarix: This vaccine protects against type 16 and type 18. Gardasil: In addition to type 16 and type 18, Gardasil protects against type 6 and type 11, which cause the most cases of genital warts. Gardasil 9: This vaccine protects against all four types of HPV in the four-type vaccine (Gardasil), plus five other high-risk HPV types. Who should get the HPV vaccine and when? Girls can get any of the HPV vaccines. Boys can get Gardasil or Gardasil 9. The vaccines are given as a shot in the upper arm. To get the most protection, you need to have three doses of the vaccine over a 6-month period. Vaccination works best when it is done before a person is sexually active and exposed to HPV, but it still can reduce the risk of getting HPV if given after a person has become sexually active. The ideal age for HPV vaccination is 11 years or 12 years, but it can be given starting at 9 years and upto 26 years, and now until age 45 What if I do not get all three doses of the HPV vaccine on time? If you do not get all three doses in a 6-month period, you do not have to ???start over.?? You canget the next dose that you are due for even if the time between doses is longer than recommended. If you started your vaccine series with Cervarix or Gardasil, you can complete the recommended doses with Gardasil 9. How effective is the HPV vaccine? Studies show that getting all three doses of the HPV vaccine before you are sexually active can reduce your risk of getting certain types of HPV-related cancer by up to 99%. If you have had sex, you may already be infected with one or more types of HPV, but you can still get the vaccine if you are younger than 26 years & recently it has been approved up to the age of 45. The vaccine may help protect you against the other types of HPV included in the vaccine that you are not infected with. Does the HPV vaccine cause any side effects? Millions of people have been vaccinated against HPV since the vaccine came out. There have been no reports of severe side effects or bad reactions to the vaccine. The most common side effect of the HPV vaccine is soreness and redness where the shot is given. Gardasil 9 may cause more soreness than the other HPV vaccines. Do I still need regular cervical cancer screening if I have gotten the HPV vaccine? Yes. HPV vaccination helps prevent HPV infection. It is not a cure for an HPV infection that has already occurred. Women who have been vaccinated still need to have regular cervical cancer screening as recommended for their age group and health history (see [id number] ???Cervical Cancer Screening?? ). In addition to the HPV vaccine, how can I protect myself against HPV infection? Even if you get the HPV vaccine, it still is important to take other steps to protect yourself against HPV and other STIs: Limit your number of sexual partners. The more partners you have over the course of your life, the greater your risk of infection. Use a male or female condom to reduce your risk of infection when you have vaginal, anal, or oral sex. But be aware that condoms cover only a small percentage of skin and do not completely protect against HPV infection. HPV can be passed from person to person by touching infected areas not covered by a condom. These areas may include skin in the genital or anal areas. Glossary Anus: The opening of the digestive tract through which bowel movements leave the body. Cells: The smallest units of a structure in the body; the building blocks for all parts of the body. Cervix: The lower, narrow end of the uterus at the top of the vagina. Human Papillomavirus (HPV): The name for a group of related viruses, some of which cause genital warts and some of which are linked to cancer of the cervix, vulva, vagina, penis, anus, mouth, and throat. Immune System: The body???s natural defense system against foreign substances and invading organisms, such as bacteria that cause disease. Penis: An external male sex organ. Sexual Pella: The act of the penis of the male entering the vagina of the female (also called???having sex?? or ???making love?? ). Sexually Transmitted Infection (STI): An infection that is spread by sexual contact, including chlamydia, gonorrhea, genital warts, herpes, syphilis, and infection with human immunodeficiency virus (HIV, the cause of acquired immunodeficiency syndrome [AIDS]). Vagina: A tube-like structure surrounded by muscles leading from the uterus to the outside of the body. Virus: An agent that causes certain types of infections. Vulva: The external female genital area. documented in this encounter Progress Notes * Kelsie Mitchell MD - 10/29/2021 2:30 PM CDT NEW Problem Patient Progress Note: CC: irreg menses and trichomonas History of Present Illness: Ms. Zavaleta is a 26 year old G0 female who presents for irreg menses & h/o trichomonas. Was pos & has been given treatment twice Jun 2021 - he took 4pills x 1; she took BID x 7d September 2021- he took BID x 7d; she took BID x 7d No sex since then, no hot tubs etc Feeling better Urinary has been better since the medicine Not having vagina problems now No pelvic pain Wondering if has had BV since last december Unsure if feels the same still Last period no bleeding outside of expected time Doing well on ocp now - sprintec (estyrella) Review of Systems: Review of Systems: Constitutional: no for fatigue, weight loss, weight gain. Respiratory: no for chronic cough, pleuritic chest pain, wheezing Cardiovascular: no for palpitations, irregular heart beat, chest pain Gastrointestinal: no for nausea, vomiting, change in bowel habits Genitourinary: no for frequency, dysuria, hematuria and vaginal discharge Integument/breast: no for changed mole, breast lump, nipple discharge and breast tenderness Musculoskeletal: no for joint pain, muscle pain Neurological: no for headaches, migraine headaches, dizziness Behavioral/Psych: no for depressed mood, anxiety, abusive relationship Endocrine: no for cold intolernance, heat intolerance Patient Active Problem List: Hair loss Irritable bowel syndrome with diarrhea Seizure disorder Ulcerative colitis Gynecologic history: Recent trich Obstetrical history: OB History Para Term AB Living 0 0 0 0 0 0 SAB IAB Ectopic Multiple Live Births 0 0 0 0 0 Medical history: Past Medical History: Diagnosis Date ??? Atypical squamous cells of undetermined significance (ASCUS) on Papanicolaou smear of cervix negative HPV ??? Crohn's disease ??? Depression ??? Seizures ??? Trichimoniasis ??? Ulcerative colitis Surgical history: Past Surgical History: Procedure Laterality Date ??? COLONOSCOPY multiple ??? Tonsillectomy Social history: Social History Socioeconomic History ??? Marital status: Single Spouse name: Not on file ??? Number of children: Not on file ??? Years of education: Not on file ??? Highest education level: Not on file Occupational History ??? Not on file Tobacco Use ??? Smoking status: Passive Smoke Exposure - Never Smoker ??? Smokeless tobacco: Never Used Vaping Use ??? Vaping Use: Never used Substance and Sexual Activity ??? Alcohol use: Yes Alcohol/week: 1.0 standard drink Types: 1 Alcoholic drink(s) per week Comment: 1 drink weekly ??? Drug use: Never ??? Sexual activity: Yes Partners: Male control/protection: Pill Other Topics Concern ??? Not on file Social History Narrative ??? Not on file Social Determinants of Health Financial Resource Strain: Not on file Food Insecurity: Not on file Transportation Needs: Not on file Physical Activity: Not on file Stress: Not on file Social Connections: Not on file Intimate Partner Violence: Not on file Housing Stability: Not on file Medications: Current Outpatient Medications Medication Sig Dispense Refill ??? azaTHIOprine (IMURAN) 50 MG tablet Take 50 mg by mouth once daily ??? cetirizine (ZYRTEC) 10 MG tablet Take 10 mg by mouth once daily ??? desogestrel-ethinyl estradiol (MIRCETTE; AZURETTE; KARIVA) 0.15-0.02/0.01 MG (16/10) tablet Take1 tablet by mouth once daily ??? inFLIXimab-dyyb (INFLECTRA IV) ??? Levocetirizine Dihydrochloride (XYZAL PO) Take by mouth once daily ??? montelukast (SINGULAIR) 10 MG tablet Take 10 mg by mouth at bedtime ??? norgestimate-ethinyl estradiol (ORTHO-CYCLEN; MONONESSA; PREVIFEM; SPRINTEC) 0.25-35 MG-MCG tablet Take 1 (one) tablet by mouth once daily 28 tablet 2 No current facility-administered medications for this visit. Allergies: No Known Allergies Physical examination: Vitals: 10/29/21 1417 BP: 122/82 Weight: 294 lb Height: 5' 11 General: No acute distress. Abdomen: Soft, non-distended, no masses or tenderness. Psychiatric: Alert and oriented x3. Affect appropriate. External Genitalia: Within normal limits, no lesions or masses. Urethral meatus: within normal limits. Urethra: Within normal limits. Bladder: Within normal limits. Vagina: Normal rugae, no lesions. Thick vag dc yellowish tint, no oder Cervix: No lesions or cervical motion tenderness. Uterus: Bimanual not performed Adnexae: bimanual not performed Anus/Perineum: Within normal limits. Rectovaginal exam: Not performed. Assessment and Plan: NEW PROBLEM visit: 1. Vaginitis: Sent yeast cx, WM/ABDIRAHMAN neg, STD swab sent, recommend sitz baths 2. Recent trich treated twice - partner also treated twice and getting tested. Await results beforeintercourse 3. irreg menses - improved with ocp Health maintenance Annual with pap 01/2022 Time with patient: 20 minutes. Significant portion (>50%) of time was spent face to face in counseling the patient about Vulvar Skincare Guidelines and discussing the treatment plan and coordination of care as outlined in instructions. All questions were answered to her satisfaction. Kelsie Mitchell MD documented in this encounter Plan of Treatment Not on file documented as of this encounter Procedures Procedure Name Priority Date/Time Associated Diagnosis Comments C. TRACHOMATIS + N. GONORRHOEAE + TRICH JULISSA Routine 10/29/2021 3:33 PM CDT Irregular menstrual bleeding Screen for STD (sexually transmitted disease) CULTURE YEAST WITH DIRECT FLUORESCENT ABDIRAHMAN Routine 10/29/2021 3:32 PM CDT Screen for STD (sexually transmitted disease) Vaginitis and vulvovaginitis WET PREP - POINT OF CARE (AMB) [facility] Routine 10/29/2021 Screen for STD (sexually transmitted disease) Vaginitis and vulvovaginitis FUNGUS ABDIRAHMAN - POINT OF CARE (AMB) [facility] Routine 10/29/2021 Screen for STD (sexually transmitted disease) Vaginitis and vulvovaginitis documented in this encounter Results * C. TRACHOMATIS + N. GONORRHOEAE + TRICH JULISSA (10/29/2021 3:33 PM CDT) Chlamydia Trachomatis JULISSA Not detected Not detected 11/03/2021 4:18 PM CDT [facility] Neisseria Gonorrhoeae JULISSA Not detected Not detected 11/03/2021 4:18 PM CDT [facility] Trichomonas Vaginalis JULISSA Not detected Not detected 11/03/2021 4:18 PM CDT [facility] Microbiology MISCELLANEOUS SAMPLES / Unknown Collection / Unknown 10/29/2021 3:33 PM CDT 11/01/2021 11:09 AM CDT Narrative [facility] - 11/03/2021 4:18 PM CDT This analysis was performed using Gen-Probe Aptima Combo 2 and Gen-Probe Aptima Assay. These methodologies are U.S. FDA approved for Chlamydia trachomatis, Neisseria gonorrhoeae testing for urine and urogenital swabs from men and women, and cervical cells submitted in ThinPrep vials. Performance characteristics of testing for Trichomonas vaginalis on specimens using the Gen-Probe Aptima Trichomonas vaginalis Assay on the [place] system and rectal and pharyngeal swabs with Gen-Probe Aptima combo 2 were determined by the [facility] at [facility]. ??They have not been cleared or approved by the U.S Food and Drug Administration (FDA). ??The FDA has determined that such clearance approval is not necessary. ??This test is used for clinical purposes and should not be regarded as investigational or for research. ??This laboratory is certified under the Clinical Laboratory Improvements Amendments of 1988 (CLIA 1988), as qualified to perform high complexity laboratory testing. Kelsie Mitchell MD LAB - MICROBIOLOGY ORDERABLES [facility] [address] [facility]. [place], [place] [address] [place] [address] * CULTURE YEAST WITH DIRECT FLUORESCENT ABDIRAHMAN (10/29/2021 3:32 PM CDT) Smear [facility] Comment: ??CULTURE, YEAST, W/DIRECT FLUORESCENT ABDIRAHMAN ?Micro Number: ?[id number] ??Test Status: ? Final ??Specimen Source: ?? Genital ??Specimen Quality: ??Adequate ??Smear: ? No yeast seen ??Result: ?No yeast isolated Test Performed at: [facility] ??[id number] GLEN KLEIN MD Microbiology SPECIMEN FROM GENITAL SYSTEM / Unknown 10/29/2021 3:32 PM CDT 10/30/2021 12:01 AM CDT Kelsie Mitchell MD LAB - MICROBIOLOGY ORDERABLES [address] [address] * FUNGUS ABDIRAHMAN - POINT OF CARE (AMB) [facility] (10/29/2021) ABDIRAHMAN Prep No Fluid BODY FLUID SPECIMEN / Unknown 10/29/2021 Kelsie Mitchell MD LAB - POINT OF CARE ORDERABLES * WET PREP - POINT OF CARE (AMB) [facility] (10/29/2021) pH Wet Prep 4.5 Yeast Wet Prep n Trichomonas Wet Prep None seen Bacteria Wet Prep n Whiff Test n BODY FLUID SPECIMEN / Unknown 10/29/2021 Kelsie Mitchell MD LAB - POINT OF CARE ORDERABLES documented in this encounter Visit Diagnoses Diagnosis Irregular menstrual bleeding- Primary Irregular menstrual cycle Screen for STD (sexually transmitted disease) Screening examination for venereal disease Vaginitis and vulvovaginitis Surveillance of contraceptive pill Surveillance of previously prescribed contraceptive pill documented in this encounter Care Teams Mooner Relationship Specialty Start Date End Date Karson Payne MD [address] [address] PCP - General 07/12/21 documented as of this encounter
--- OUTSIDE RECORDS SUMMARY | 2024-06-08 07:41 | XMS_ITS | Data Portability ---
Author Organization [facility] Address [address] [place] [address] Assessment Encounter Date Assessment Date Assessment LastModified by Organization Details LastModified Time 04/16/2024 04/16/2024 Annual gynecological exam performed. Patient will come back in a year unless there are new symptoms. [email or web address] Not available 04/16/2024 15:47:38 Plan of Treatment Reminders Order Date Submit Date Provider Last Modified By Organization Details Last Modified Time Details Appointments [facility]- EST 025 04:15PM CHRISTOFER DELGADO MD Not available Not available Not available Lab None record ed. Referral None record ed. Procedures None record ed. Surgeries None record ed. Imaging None record ed. Medication Orders None record ed. Patient TargetsNo targets recorded. Patient InstructionsNo instructions recorded. Reason for Referral None Reported. Results Created Date Observation Date Name Description Value Unit Range Abnormal Flag Note LastModifiedBy Organization Detail LastModifiedTime 04/16/2004/16/2024 IMAGE GUIDE D PAP, REFLE X HPV IF ASCUS ONLY image guided Pap, reflex HPV ASCUS only SEE RESULT S BELOW CASE REPOR T: Cytol ogy Gynec ologi corona Repor t Case: [id number] Autho sierra g Provi shalom: Shukri Marley MD Colle cted: 04/16 1531 Order ing Locat ion: [place] [facility] Recei gianluca: 04/17 1043 First Scree n: Anastacia Mccoy Rescr een: Hedy Frost ret, CT Speci men: Scree alex Pap - Image d, Cervi x STATE MENT OF ADEQU ACY: Satis facto ry for evalu ation Trans forma tion zone compo nent absen t Parti lianety obscu ring infla mmati on prese nt The absen ce of an endoc ervic al compo nent was confi rmed by an addit ional scree ner. ----- ----- ----- ----- ----- ----- ----- ----- ----- ----- ----- ----- ----- ----- ----- ----- ----- ---- FINAL DIAGN OSIS: Negat jimmie for Intra epith elial Kaykay rodriguez or Han spear (NIL) . Shift in ramona sugge stive of bacte rial vagin osis. Elect georgi donald d by Hedy Frost ret, CT on 2023 at 11:48 AM ----- ----- ----- ----- ----- ----- ----- ----- ----- ----- ----- ----- ----- ----- ----- ----- ----- ---- COMME NT: Slide scree emily davin llkeith due to rejec tion by the Thinp rep Imagi ng Syste m. CLINI CORONA INFOR MATIO N: Menst rual Statu s: LMP (if appli cable ): Clini corona Histo ry/Pr eviou s Pap: Type of Neopl dorie (if appli cable ): Signi marti t Clini corona Findi ngs: Other Histo ry: Hormo jose (if appli cable ): PAP EDUCA CIRO L NOTE: The Pap Test is a scree alex test with an inher ent false negat jimmie rate. Liqui d-bas ed sampl ing may decre ase, but will not elimi abelardo, false negat jimmie resul ts. A negat jimmie resul t does not precl ude the prese nce and/o r devel opmen t of disea se, since the prese nce of abnor mal cells in the sampl e depen ds on the locat ion of the lesio n and sampl ing techn ique. Juliette nued regul ar scree alex is the best metho d of cance r preve ntion . If repor bc cytol ogic findi ng do not corre late with physi corona and/o r histo rical findi ngs, furth er inves tigat ion is recom brook d, as clini jamila bobo nted. Not Available [facility] (Lab) [address], [place], [address], 04/29/2024 12:52:13 04/16/20 24 04/16/2024 TRICH OMONA S VAGIN KACEY (RRNA ) trichomonas vaginalis ribosomal RNA (rrna) Negati ve negati ve Not Available [facility] (Lab) [address], [place], [address], 04/29/2024 12:52:14 04/16/20 24 04/16/2024 CT/GC (ANDREW) , THINP REP VIAL chlamydia trachomatis, PCR Negati ve negati ve Not Available [facility] (Lab) [address], [place], [address], 04/29/2024 12:52:14 04/16/20 24 04/16/2024 CT/GC (ANDREW) , THINP REP VIAL neisseria gonorrhoeae, PCR Negati ve negati ve Not Available [facility] (Lab) [address] [place], [address], 04/29/2024 12:52:14 Result Notes None recorded. Procedures Surgical History Date Name Laterality Status Provider Name and Address Organization Details Recorded Time 04/11/20 23 Date of Last Pap Smear completed [facility] 04/16/2024 15:44:08 10/31/19 21 Date of Last Colonoscopy completed Joseline [facility] 04/16/2024 15:44:08 Tonsillectomy completed Joseline Perez [facility] 04/16/2024 15:44:08 Imaging Results None recorded. Procedure Notes None recorded. Medical Equipment None Reported. Allergies Allergen ID Allergen Name Allergen Category Reaction Reaction Severity Criticality Documentation Date Start Date Code Code System Note Provider Name and Address Organization Details Recorded Time 84182 house dust allergeni c extract environme nt,medica tion eye redness moderate Not available 04/16/2024 41451 9 RxNorm Joseline Perez [facility], [facility] 15:44:08 Medications Name Sig Start Date Stop Date Status Note LastModified by Organization Details LastModified Time azithromyci n 250 mg tablet TAKE 1 TABLET BY MOUTH ONCE DAILY 04/16 completed Not Available Not Available Not Available fluconazole 150 mg tablet TAKE ONE TABLET BY MOUTH A ONE-TIME DOSE active Not Available Not Available No t Available rifabutin 150 mg capsule TAKE 2 CAPSULES BY MOUTH ONCE DAILY active Not Available Not Available No t Available azathioprin e 50 mg tablet active Not Available Not Available Not Available sulfamethox azole 800 mg-trimetho prim 160 mg tablet TAKE 1 TABLET BY MOUTH EVERY 12 HOURS active Not Available Not Available No t Available cefadroxil 500 mg capsule TAKE 1 CAPSULE BY MOUTH TWICE DAILY active Not Available Not Available No t Available ethambutol 400 mg tablet TAKE 4 TABLETS BY MOUTH ONCE DAILY active Not Available Not Available No t Available montelukast 10 mg tablet active Not Available Not Available Not Available dicyclomine 10 mg capsule active Not Available Not Available Not Available azithromyci n 500 mg tablet TAKE 1 TABLET BY MOUTH ONCE DAILY 04/16 completed Not Available Not Available Not Available Sprintec (28) 0.25 mg-35 mcg tablet Take 1 tablet every day by oral route. 2024 active Not Available Not Available Not Avai lable Sprintec (28) 04/16 completed Not Available Not Available Not Available sodium,pota ssium,mag sulfates 17.5 gram-3.13 gram-1.6 gram oral soln active Not Available Not Available Not Available Inflectra 100 mg intravenous solution active Not Available Not Available Not Available Vitals Date Recorded Body weight Body mass index (BMI) Body height Systolic blood pressure Diastolic blood pressure Provider Name and Address Organization Details Last Updated DateTime 04/16/2024 335154.4 1 g 47.4 kg/m2 180.34 cm 131 mm[Hg] 84 mm[Hg] Joseline Perez [facility] 15:50:45 Social History Question Answer Notes LastModified by Organizat ion Details LastModified Time Tobacco Smoking Status Never Smoker Joseline Chris null, [facility] 04/16/2024 15:52:22 Do You Have An Advance Directive? No [email or web address] Information not available 04/16/2024 What Is Your Level Of Alcohol Consumption? Occasional [email or web address] Information not available 04/16/2024 How Many Years Have You Consumed Alcohol? 5 [email or web address] Information not available 04/16/2024 Are You Blind Or Do You Have Difficulty Seeing? No [email or web address] Information not available 04/16/2024 What Is Your Level Of Caffeine Consumption? Moderate [email or web address] Information not available 04/16/2024 How Much Tobacco Do You Chew? None [email or web address] Information not available 04/16/2024 In The 14 Days Before Symptom Onset, Have You Had Close Contact With A Laboratory-confir med COVID-19 While That Case Was Ill? No [email or web address] Information not available 04/16/2024 In The 14 Days Before Symptom Onset, Have You Had Close Contact With A Person Who Is Under Investigation For COVID-19 While That Person Was Ill? No [email or web address] Information not available 04/16/2024 Have You Been To An Area Known To Be High Risk For COVID-19? No [email or web address] Information not available 04/16/2024 Are You Deaf Or Do You Have Serious Difficulty Hearing? No [email or web address] Information not available 04/16/2024 What Type Of Diet Are You Following? REGULAR [email or web address] Information not available 04/16/2024 What Is The Highest Grade Or Level Of School You Have Completed Or The Highest Degree You Have Received? 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 Yes [email or web address] Information not available 04/16/2024 Do You Use Protection During Sex? No [email or web address] Information not available 04/16/2024 Do You Use Your Seat Belt Or Car Seat Routinely? Yes [email or web address] Information not available 04/16/2024 Do You Have Smoke And Carbon Monoxide Detectors In Your Home? Yes [email or web address] Information not available 04/16/2024 How Much Tobacco Do You Smoke? No [email or web address] Information not available 04/16/2024 Do You Feel Stressed (tense, Restless, Nervous, Or Anxious, Or Unable To Sleep At Night)? [id number] Information not available 04/16/2024 Do You Use Any Illicit Or Recreational Drugs? No [email or web address] Information not available 04/16/2024 Do You Use Sunscreen Routinely? No Information not available 04/16/2024 Have You Used IV Drugs? No [email or web address] Information not available 04/16/2024 Sex: Unknown Functional Status Question Answer Note LastModified by Organizat ion Details LastModified Time Do you have difficulty walking or climbing stairs? No [email or web address] Information not available 04/16/2024 Are you able to walk? YESWOREST Information not available 04/16/2024 Are you able to care for yourself? Yes [email or web address] Information not available 04/16/2024 Do you have difficulty dressing or bathing? No Information not available 04/16/2024 What is your exercise level? Occasional [email or web address] Information not available 04/16/2024 Mental Status None recorded. Family History Relationship Description Onset Age of this Age Resolved Age Notes LastModified by Organization Details LastModified Time Unspecified Relation Family history unknown [email or web address] Not available 2023 15:44:08 Medical History Condition Response GI Problems Y Gynecological History Statement/Question Response Flow Moderate Date of LMP 03/26/2024 N Was last menstrual period normal Y STIs/STDs N HPV Vaccine Y Duration of Flow (days) 5 Current Control Method Other Date of Last Colonoscopy 10/30/2020 Frequency of Cycle (Q days) 30 Sexually Active? Y Age of first menstrual cycle 14 Date of Last Pap Smear 04/11/2023 Sexual Problems? N LMP Approximate N Obstetrics History GPAL:G 0 P 0 0 0 0 Past Encounters Encounter ID Performer Location Encounter Start Date Encounter Closed Date Diagnosis/Indication Diagnosis SNOMED-CT Code Diagnosis ICD10 Code Diagnosis Note [id number] CHRISTOFER DELGADO MD [place] [address] [address] 04/16/2024 15:40:37 04/16/2024 16:36:56 Gynecologic examination 63454998 Z01.419 Well woman care- Cervical cancer screening: Pap smear obtained today, will follow up on the results with the patient as they become available- Breast cancer screening: mammogram not indicated- Colon cancer screening: does not qualify- HPV immunizati on: received- STD testing: sent on pap- hereditary cancer screening: does not qualify for testing Health Concerns Section Related Observation LastModified by Organization Detai ls LastModified Time None Recorded Concern Status LastModified by Organization Details LastModified Time None Recorded Advance Directives Directive N: Payers Encounter Date Sequence Insurance Name Policy Number Policy Doe Covered Member ID Doe Member ID Guarantor Name 04/16/2024 1 [facility] [id number] [facility] [id number] [facility] Notes Date Note Type Note Provider Name and Address Organization Details Recorded Time 04/16/2024 text/html Presents today to establish care and for her annual well-woman exam. Denies abnormal vaginal discharge. She is sexually active and denies dyspareunia. She is using OCPs for contraception, and she states that she is satisfied with this method. She has not noticed any changes or masses in her breasts. Regular periods on pills. CHRISTOFER DELGADO MD [address], [place], [address], [facility] 04/16/2024 16:18:46 OBGyn Episode No OBEpisode recorded.
--- OUTSIDE RECORDS SUMMARY | 2024-06-08 07:41 | XMS_ITS | Continuity of Care Document ---
Author Organization [facility] [place] Address [address] [place] [address] Assessment Encounter Date Assessment Date Assessment LastModified by Organization Details LastModified Time 04/16/2024 04/16/2024 Annual gynecological exam performed. Patient will come back in a year unless there are new symptoms. [email or web address] Not available 04/16/2024 15:47:38 Plan of Treatment [...] instructions recorded. Reason for Referral None Reported. Procedures Surgical History Date Name Laterality Status Provider Name and Address Organization Details Recorded Time 04/11/20 23 Date of Last Pap Smear completed [facility] 04/16/2024 15:44:08 10/31/19 21 Date of Last Colonoscopy completed [facility] 04/16/2024 15:44:08 Tonsillectomy completed [facility] 04/16/2024 15:44:08 Imaging Results None recorded. Procedure Notes None recorded. Medical Equipment None Reported. Allergies Allergen ID Allergen Name Allergen Category Reaction Reaction Severity Criticality Documentation Date Start Date Code Code System Note Provider Name and Address Organization Details Recorded Time 86385 house dust allergeni c extract environme nt,medica tion eye redness moderate Not available 04/16/2024 81307 9 RxNorm Joseline gasca, [facility] 4 15:44:08 Medications Name Sig Start Date Stop [...] Address Organization Details Last Updated DateTime 04/16/2024 938891.4 1 g 47.4 kg/m2 180.34 cm 131 mm[Hg] 84 mm[Hg] Joseline Perez [facility] 4 15:50:45 Social History Question Answer Notes LastModified by Organizat ion Details LastModified Time Tobacco Smoking Status Never Smoker Joseline [place] [facility] 04/16/2024 15:52:22 Do You Have An Advance Directive? No Information not available 04/16/2024 What Is Your Level Of Alcohol Consumption? Occasional [email or web address] Information not available 04/16/2024 How Many Years Have You Consumed Alcohol? 5 [email or web address] Information not available 04/16/2024 Are You Blind Or Do You Have Difficulty Seeing? No [email or web address] Information not available 04/16/2024 What Is Your Level Of Caffeine Consumption? Moderate [email or web address] Information not available 04/16/2024 How Much Tobacco Do You Chew? None [email or web address] Information not available 04/16/2024 In The 14 Days Before Symptom Onset, Have You Had Close Contact With A Laboratory-confir med COVID-19 While That Case Was Ill? No [email or web address] Information not available 04/16/2024 In The 14 Days Before Symptom Onset, Have You Had Close Contact With A Person Who Is Under Investigation For COVID-19 While That Person Was Ill? No [email or web address] Information not available 04/16/2024 Have You Been To An Area Known To Be High Risk For COVID-19? No Information not available 04/16/2024 Are You Deaf Or Do You Have Serious Difficulty Hearing? No [email or web address] Information not available 04/16/2024 What Type Of Diet Are You Following? REGULAR [email or web address] Information not available 04/16/2024 What Is The Highest Grade Or Level Of School You Have Completed Or The Highest Degree You Have Received? 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 Yes [email or web address] Information not available 04/16/2024 Do You Use Protection During Sex? No Information not available 04/16/2024 Do You Use Your Seat Belt Or Car Seat Routinely? Yes [email or web address] Information not available 04/16/2024 Do You Have Smoke And Carbon Monoxide Detectors In Your Home? Yes [email or web address] Information not available 04/16/2024 How Much Tobacco Do You Smoke? No Information not available 04/16/2024 Do You Feel Stressed (tense, Restless, Nervous, Or Anxious, Or Unable To Sleep At Night)? LC47579-7 [email or web address] Information not available 04/16/2024 Do You Use Any Illicit Or Recreational Drugs? No [email or web address] Information not available 04/16/2024 Do You Use Sunscreen Routinely? No [email or web address] Information not available 04/16/2024 Have You Used IV Drugs? No [email or web address] Information not available 04/16/2024 Sex: Unknown Functional Status Question Answer Note LastModified by Organizat ion Details LastModified Time Do you have difficulty walking or climbing stairs? No [email or web address] Information not available 04/16/2024 Are you able to walk? YESWOREST [email or web address] Information not available 04/16/2024 Are you able to care for yourself? Yes [email or web address] Information not available 04/16/2024 Do you have difficulty dressing or bathing? No [email or web address] Information not available 04/16/2024 What is your exercise level? Occasional [email or web address] Information not available 04/16/2024 Mental Status None recorded. Family History Relationship Description Onset Age of this Age Resolved Age Notes LastModified by Organization Details LastModified Time Unspecified Relation Family history unknown [email or web address] Not available 2023 15:44:08 Medical History Condition [...] SNOMED-CT Code Diagnosis ICD10 Code Diagnosis Note [id number] CHRISTOFER DELGADO MD [place] [address] [address] 04/16/2024 15:40:37 04/16/2024 16:36:56 Gynecologic examination [id number] Z01.419 Well woman care- Cervical cancer screening: [...] by Organization Details LastModified Time None Recorded Payers Encounter Date Sequence Insurance Name Policy Number Policy Doe Covered Member ID Doe Member ID Guarantor Name 04/16/2024 1 [facility] [id number] Paige Waqar [id number] Paige Waqar Notes Date Note Type Note Provider Name [...] periods on pills. CHRISTOFER DELGADO MD [address], [place], [address], [place] [facility] 04/16/2024 16:18:46 OBGyn Episode No OBEpisode recorded.
--- OUTSIDE RECORDS SUMMARY | 2024-06-08 07:41 | XMS_ITS | Encounter Summary ---
Author Organization [facility] Address [address] [place] [address] Care Team Providers Care Legal Receptionist Name Role Phone Karson Payne MD Primary Care Provider [phone] Reason for Visit * Reason Onset Date Comments Nurse Only 09/24/2021 Encounter Details Date Type Department Care Team (Late st Contact Info) Description 09/24/2021 Telephone [facility] - OPERATOR RECEPTIONIST [address] [address] Raysa Asher, CLARE-PROGRESSIVE CARE MANAGER [address] [place] [phone] Nurse Only Social History Tobacco Use Types Packs/Day Years [...] as of this encounter Miscellaneous Notes * Telephone Encounter - Priscilla Esteban RN - 09/24/2021 11:06 AM CDT Plan [place] visit Wednesday 09/27 at 2:20 pm Aware SLO Agreeable For the weekend, baking soda sitz baths in cool water Showers Keeping clean/dry Ice packs prn if itching * Telephone Encounter - Marie Mcgovern - 09/24/2021 8:25 AM CDT Pt is calling still having issues with UTI , BV and was feeling better but got in dirty hot tub notsure if this is the issue, pt was postive for trich in past that was resolve, pt is concerned wouldlike to speak to nurse documented in this encounter Plan of Treatment Not on file documented as of this encounter Visit Diagnoses Not on filedocumented in this encounter Care Teams Legal Receptionist Relationship Specialty Start Date End Date Karson Payne MD [address] [id number] PCP - General 07/12/21 documented as of this encounter
--- OUTSIDE RECORDS SUMMARY | 2024-06-08 07:41 | XMS_ITS | Encounter Summary ---
Author Organization [facility] Address [address] [place] [address] Care Team Providers Care Instructional Coach Name Role Phone Karson Payne MD Primary Care Provider [phone] Reason for Visit * Reason Comments VAGINITIS Encounter Details Date Type Department Care Team (Late st Contact Info) Description 09/27/2021 2:20 PM CDT Office Visit [facility] [address] [place] [address] Raysa Asher, DENTAL LABORATORY ASSISTANT-SURGICAL INSTRUMENT REPAIR SPECIALIST [address] [address] Trichomoniasis (Primary Dx) Social History Tobacco Use Types [...] Sign Reading Time Taken Comments Blood Pressure 130/78 09/28/2021 8:07 AM CDT Pulse - - Temperature - - Respiratory Rate - - Oxygen Saturation - - Inhaled Oxygen Concentration - - Weight 126.1 kg (278 lb) 09/28/2021 8:07 AM CDT Height 180.3 cm (5' 11 ) 09/28/2021 8:07 AM CDT Body Mass Index 38.77 09/28/2021 8:07 AM CDT documented in this encounter Patient Instructions * Patient Instructions* Raysa Asher APRN-CNP - 09/27/2021 2:41 PM CDT Take one table twice a day No alcohol No sex until the culture is taken. On 10-29-2021 documented in this encounter Progress Notes * Raysa Asher APRN-CNP - 09/27/2021 2:20 PM CDT Images from the original note were not included. [facility] Return Visit Date: 09/28/2021 Allergies: No Known Allergies VS: BP 130/78 Ht 5' 11 (1.803 m) Wt 278 lb (126.1 kg) BMI 38.77 kg/m2 Treatment(s): veg oil, flagyl (trich) Status: worse Subjective: first f/u today for recurrent vag d/c, hx of BV. Has implemented the Vulvar skin care guidelines. Changed to sprintec as was having BTB on her previous OCP's; only recent episode of BTB Had another UTI in July, Using the oil Went to urgent care & told had trichomonas. She & partner were treated. Also tested for gc/ch & was negative. Then went to a hotel, got in a hot tub, sex with same parnter 09-18-2021 Then felt all of her symptoms came right back. Feels burning all of the time Symptoms: (None=0; 10=Severe) Dyspareunia: Entry: bad Deep Pain:0 Burning after intercourse:0 Vaginal discharge: 0 No longer feels is normal Vulvar burning: today only with occ voids Vulvar itchin but has an irritation Clitoral pain: 0 Vulvar pain: 0 Urinary symptoms:dysuria Correct product use: VCG followed on all aspects: good compliance Vulvar Examination: See Photo Documentation/annotated image-if photo taken, verbal consent obtained pH: pH Vaginal Date Value Ref Range Status 09/27/2021 5.0 Final Wet mount results: pH Wet Prep Date/Time Value Ref Range Status 09/27/2021 12:00 AM 5.0 Final Yeast Wet Prep Date/Time Value Ref Range Status 09/27/2021 12:00 AM no Final Trichomonas Wet Prep Date/Time Value Ref Range Status 09/27/2021 12:00 AM Many Final Bacteria Wet Prep Date/Time Value Ref Range Status 09/27/2021 12:00 AM no Final Whiff Test Date/Time Value Ref Range Status 09/27/2021 12:00 AM no Final ABDIRAHMAN Prep: ABDIRAHMAN Prep Date Value Ref Range Status 09/27/2021 No Final Cultures collected: none Biopsy: N/d Impression/Plan: 1. Trich; Continue the Vulvar Care Guidelines unclear re new exposure or inadequate partner treatment repeat the flagyl Bid x 7 days 2. F/U as [place] Dr Daquan Mitchell 10-29-2021 To abstain form sex until upcoming cafeteria aide visit NEEDS AISHA for trich Time - The total face to face encounter time was 25 minutes. A significant portion (>50%) time was spent face to face in counseling the patient about the [facility] Care Guidelines, trich and discussing the treatment plan as outlined in instructions. Her questions were answered to her satisfaction. Written instructions were provided. The patients medications, allergies, medical history, surgical history,family history, and social history were reviewed and changes are amended directly in the appropriate areas of the electronic medical record and electronically signed. I also spent 5 minutes of time on the day of the visit preparing to see the patient and completing the visit documentation, including some or all of the following: ? obtaining and/or reviewing separately obtained history (as available from electronic record, careeverywhere, provided records from the patient if available) ? counseling and educating the patient/family/caregiver ? ordering medications, tests, or procedures as needed ? referring and communicating with other health health careers instructor via faxed communication ? documenting clinical information in the electronic health record ? independently interpreting results and communicating results to the patient/family/caregiver as needed ? care coordination as needed Total time 30 minutes New: 30 min (35717) 45 min (62401) 60 min (60200) Established 20 min (30780) 30 min (91838) 40 min (75220) documented in this encounter Plan of Treatment Not on file documented as of this encounter Procedures Procedure Name Priority Date/Time Associated Diagnosis Comments PH FLUID - POCT (AMB) [facility] Routine 09/27/2021 Trichomoniasis WET PREP - POINT OF CARE (AMB) [facility] Routine 09/27/2021 Trichomoniasis FUNGUS ABDIRAHMAN - POINT OF CARE (AMB) [facility] Routine 09/27/2021 Trichomoniasis documented in this encounter Results * WET PREP - POINT OF CARE (AMB) [facility] (09/27/2021) pH Wet Prep 5.0 Yeast Wet Prep no Trichomonas Wet Prep Many Bacteria Wet Prep no Whiff Test no BODY FLUID SPECIMEN / Unknown 09/27/2021 Raysa Asher APRN-[facility] - POINT OF CARE ORDERABLES * PH FLUID - POCT (AMB) [facility] (09/27/2021) pH Vaginal 5.0 Fluid ENTIRE VAGINA / Unknown 09/27/2021 Raysa Asher APRN-[facility] - POINT OF CARE ORDERABLES * FUNGUS ABDIRAHMAN - POINT OF CARE (AMB) [facility] (09/27/2021) ABDIRAHMAN Prep No Fluid BODY FLUID SPECIMEN / Unknown 09/27/2021 Raysa Asher APRN-[facility] - POINT OF CARE ORDERABLES documented in this encounter Visit Diagnoses Diagnosis Trichomoniasis- Primary documented in this encounter Care Teams Instructional Coach Relationship Specialty Start Date End Date Karson Payne MD [address] [id number] PCP - General 07/12/21 documented as of this encounter
--- OUTSIDE RECORDS SUMMARY | 2024-06-08 07:41 | XMS_ITS | Encounter Summary ---
Author Organization [facility] Address [address] [place] [address] Care Team Providers Care Mold Press Operator Name Role Phone Karson Payne MD Primary Care Provider Reason for Visit * Reason Comments Well Women Exam Encounter Details Date Type Department Care Team (Late st Contact Info) Description 04/17/2023 4:00 PM SALES ENABLEMENT SPECIALIST Office Visit [facility] - WINDOWS SYSTEMS ENGINEER [address] [facility] [address] [place] [address] Alexus Díaz MD [address] [facility] [address] [place], [place] [id number] Well woman exam with routine gynecological exam (Primary Dx) Social History Tobacco Use Types Packs/Day Years Used Date Smoking Tobacco: Never Passive Smoke Exposure: Yes Smokeless Tobacco: Never Tobacco Cessation:Counseling Given: Not Answered Alcohol Use Standard Drinks/Week Comments Yes 1 (1 standard drink = 0.6 oz pur e alcohol) 1 drink weekly Sex and Gender Information Value Date Recorded Sex Assigned at Not on file Gender Identity Not on file Sexual Orientation Not on file documented as of this encounter Last Filed Vital Signs Vital Sign Reading Time Taken Comments Blood Pressure 124/80 04/17/2023 4:12 PM SALES ENABLEMENT SPECIALIST Pulse - - Temperature - - Respiratory Rate - - Oxygen Saturation - - Inhaled Oxygen Concentration - - Weight 146.1 kg (322 lb) 04/17/2023 4:12 PM SALES ENABLEMENT SPECIALIST Height 180.3 cm (5' 11 ) 04/17/2023 4:12 PM SALES ENABLEMENT SPECIALIST Body Mass Index 44.91 04/17/2023 4:12 PM SALES ENABLEMENT SPECIALIST documented in this encounter Progress Notes * Alexus Díaz MD - 04/17/2023 4:12 PM CST General community association manager Annual Exam History of Present Illness: Ms. Moreno a 27 year old female who presents for annual well woman exam. She reports no complaints and no vaginal discharge, heavy periods, irregular periods, infertility, pelvic pain and concern for STI. New since last visit: none Gynecologic history: on OCPs, regular, sometimes a little bit of spotting Pap smear history: ASCUS 2 years ago, last normal STI history: declines Obstetrical history: OB History Para Term AB Living 0 0 0 0 0 0 SAB IAB Ectopic Multiple Live Births 0 0 0 0 0 Medical history: Past Medical History: Diagnosis Date ??? Atypical squamous cells of undetermined significance (ASCUS) on Papanicolaou smear of cervix negative HPV ??? Crohn's disease (CMS/HCC) ??? Depression ??? Seizures (CMS/HCC) ??? Trichimoniasis ??? Ulcerative colitis (CMS/HCC) Surgical history: Past Surgical History: Procedure Laterality Date ??? COLONOSCOPY multiple ??? Tonsillectomy Social history: Social History Socioeconomic History ??? Marital status: Single Spouse name: Not on file ??? Number of children: Not on file ??? Years of education: Not on file ??? Highest education level: Not on file Occupational History ??? Not on file Tobacco Use ??? Smoking status: Never Passive exposure: Yes ??? Smokeless tobacco: Never Vaping Use ??? Vaping Use: Never used Substance and Sexual Activity ??? Alcohol use: Yes Alcohol/week: 1.0 standard drink of alcohol Types: 1 Alcoholic drink(s) per week Comment: 1 drink weekly ??? Drug use: Never ??? Sexual activity: Yes Partners: Male control/protection: Pill Other Topics Concern ??? Not on file Social History Narrative ??? Not on file Social Determinants of Health Financial Resource Strain: Not on file Food Insecurity: Not on file Transportation Needs: Not on file Stress: Not on file Housing Stability: Not on file Family History Problem Relation Name Age of Onset ??? Depression Mother ??? Cancer - Skin, Melanoma Mother ??? None Known Father ??? Cancer Maternal Grandmother ??? None Known Maternal Grandfather ??? CAD (Coronary Artery Disease) Paternal Grandmother ??? None Known Paternal Grandfather Medications: Current Outpatient Medications Medication Sig Dispense Refill ??? azaTHIOprine (IMURAN) 50 MG tablet Take 1 (one) tablet by mouth once daily ??? cetirizine (ZYRTEC) 10 MG tablet Take 1 (one) tablet by mouth once daily ??? inFLIXimab-dyyb (INFLECTRA IV) ??? Levocetirizine Dihydrochloride (XYZAL PO) Take by mouth once daily ??? montelukast (SINGULAIR) 10 MG tablet Take 1 (one) tablet by mouth at bedtime ??? norgestimate-ethinyl estradiol (Estarylla) 0.25-35 MG-MCG tablet Take 1 (one) tablet by mouth once daily appointment 04/17/23 to discuss additional refills. 3 packet 3 No current facility-administered medications for this visit. Allergies: No Known Allergies Review of Systems All other systems reviewed and are negative. Physical examination: Vitals: 04/17/23 1612 BP: 124/80 Weight: (!) 146.1 kg (322 lb) Height: 1.803 m (5' 11 ) Body mass index is 44.91 kg/m??. Physical Exam Constitutional: General: She is not in acute distress. Appearance: Normal appearance. She is not ill-appearing. HENT: Head: Normocephalic and atraumatic. Nose: Nose normal. Eyes: Extraocular Movements: Extraocular movements intact. Pulmonary: Effort: Pulmonary effort is normal. Chest: Breasts: Right: No swelling, bleeding, inverted nipple, mass, nipple discharge, skin change or tenderness. Left: No swelling, bleeding, inverted nipple, mass, nipple discharge, skin change or tenderness. Genitourinary: General: Normal vulva. Labia: Right: No rash, tenderness, lesion or injury. Left: No rash, tenderness, lesion or injury. Urethra: No prolapse or urethral lesion. Vagina: No signs of injury. No vaginal discharge, erythema, tenderness, bleeding, lesions or prolapsed vaginal corrales. Cervix: No cervical motion tenderness, discharge, friability, lesion, erythema, cervical bleeding or eversion. Uterus: Not deviated, not enlarged, not fixed and not tender. Adnexa: Right: No mass, tenderness or fullness. Left: No mass, tenderness or fullness. Musculoskeletal: Cervical back: Normal range of motion. Lymphadenopathy: Upper Body: Right upper body: No supraclavicular, axillary or pectoral adenopathy. Left upper body: No supraclavicular, axillary or pectoral adenopathy. Skin: General: Skin is warm and dry. Neurological: Mental Status: She is alert and oriented to person, place, and time. Psychiatric: Behavior: Behavior normal. Assessment and Plan: Well woman exam with routine gynecological exam Pap smear due 2024 Not yet due for mammogram. Family planning reviewed. She is currently using combined oral contraceptives for contraception anddesires to use combined oral contraceptives in the future. She has not completed childbearing. STI screening declined at this appointment. RTC 1 year Alexus Díaz MD S ENABLEMENT SPECIALIST documented in this encounter Plan of Treatment Not on file documented as of this encounter Visit Diagnoses Diagnosis Well woman exam with routine gynecological exam- Primary Routine gynecological examination * Assessment & Plan Note - Alexus Díaz MD - 04/17/2023 4:23 PM SALES ENABLEMENT SPECIALIST Associated Problem(s): Well woman exam with routine gynecological exam Pap smear due 2024 Not yet due for mammogram. Family planning reviewed. She is currently using combined oral contraceptives for contraception anddesires to use combined oral contraceptives in the future. She has not completed childbearing. STI screening declined at this appointment. RTC 1 year S ENABLEMENT SPECIALIST documented in this encounter Care Teams Mold Press Operator Relationship Specialty Start Date End Date Karson Payne MD [address] [phone] PCP - General 07/12/21 documented as of this encounter
--- OUTSIDE RECORDS SUMMARY | 2024-06-08 07:41 | XMS_ITS | Encounter Summary ---
Author Organization [facility] Address [address] [place] [address] Care Team Providers Care Assembler Wire Group Name Role Phone Karson Payne MD Primary Care Provider [phone] Reason for Visit * Reason Comments Refill Request Encounter Details Date Type Department Care Team (Late st Contact Info) Description 10/14/2021 Refill [facility] [address] [place] [id number] Raysa Asher APRN-CNP [address] [address] Refill Request Social History Tobacco Use [...] encounter Miscellaneous Notes * Telephone Encounter - Raysa Asher APRN-CNP - 10/14/2021 12:14 PM CDT Pt was to be seen by gen marine railway operator. I do not see any appointments on file. I would be willing to refill only until time of marine railway operator appointment. * Telephone Encounter - Genevieve Adams LPN - 10/14/2021 10:44 AM CDT Last visit 10/17 Next visit none on books Last refill estarylla 07/20 Last note says medication was changed - I am not sure if this is the same med or not . Will send request to provider for review. documented in this encounter Plan of Treatment Not on file documented as of this encounter Visit Diagnoses Diagnosis Breakthrough bleeding on control pills Metrorrhagia documented in this encounter Care Teams Assembler Wire Group Relationship Specialty Start Date End Date Karson Payne MD [address] [phone] PCP - General 07/12/21 documented as of this encounter
--- OUTSIDE RECORDS SUMMARY | 2024-06-08 07:41 | XMS_ITS | Clinical Summary ---
Author Organization [facility] Address [address] [facility] [place] [address] Care Team Providers Care Fiberglass Grinder Name Role Phone Karson Payne MD Primary Care Provider [phone] Source Comments [facility],non-owned Affiliates and Associated Physician Practices is amultiple site organization consisting of ambulatory clinics and hospital sitesin [place], [place], [place] and [place]. This disclosure is being madepursuant to the Care Everywhere program and may not contain all information available regarding this patient. Last updated 18.[facility] Allergies No known active allergies Medications * Be aware that medications may not be up to date on this document. Alwaysverify current medications with the patient. Medication Sig Dispensed Refills Start Date End Date Status inFLIXimab-dyyb (INFLECTRA IV) Active Levocetirizine Dihydrochloride (XYZAL PO) Take by mouth once daily Active montelukast (SINGULAIR) 10 MG tablet Take 1 (one) tablet by mouth at bedtime Active azaTHIOprine (IMURAN) 50 MG tablet Take 1 (one) tablet by mouth once daily Active cetirizine (ZYRTEC) 10 MG tablet Take 1 (one) tablet by mouth once daily Active norgestimate-ethinyl estradiol (Estarylla) 0.25-35 MG-MCG tablet Take 1 (one) tablet by mouth once daily appointment 04/17/23 to discuss additional refills. 3 packet 3 04/17/2023 Active Active Problems Problem Noted Date Diagnosed Date Well woman exam with routine gynecological exam 04/11/2022 Assessment & Plan (04/17/2023 4:24 PM RECORD PRESS OPERATOR): Pap smear due 2024 Not yet due for mammogram. Family planning reviewed. She is currently using combined oral contraceptives for contraception and desires to use combined oral contraceptives in the future. She has not completed childbearing. STI screening declined at this appointment. RTC 1 year Assessment & Plan (04/11/2022 3:41 PM RECORD PRESS OPERATOR): Pap smear performed - with reflex HPV. Not yet due for mammogram. Family planning reviewed. She is currently using combined oral contraceptives for contraception and desires to use combined oral contraceptives in the future. She has not completed childbearing. STI screening already performed this year and declined at this appointment. Reports family history of cancer, uncertain what types. Would not be a bad idea to know what kinds of cancer have been in her family. Hair loss 12/28/2020 Ulcerative colitis 07/24/2020 Overview (07/21/2021): Added automatically from request for surgery [id number] Irritable bowel syndrome with diarrhea 9 Seizure disorder 11/26/2018 Family History Medical History Relation Name Comments None Known Father None Known Maternal Grandfather Cancer Maternal Grandmother Cancer - Skin, Melanoma Mother Depression Mother None Known Paternal Grandfather CAD (Coronary Artery Disease) Paternal Grandmother Relation Name Status Comments Father Alive Maternal Grandfather Maternal Grandmother Mother Alive Paternal Grandfather Paternal Grandmother Social History Tobacco Use Types Packs/Day Years [...] on file Sexual Orientation Not on file Last Filed Vital Signs Vital Sign Reading Time Taken Comments Blood Pressure 124/80 04/17/2023 4:12 PM RECORD PRESS OPERATOR Pulse 116 04/11/2022 3:07 PM RECORD PRESS OPERATOR Temperature 36.5 ??C (97.7 ??F) 06/30/2016 2:30 PM CS T Respiratory Rate 18 06/30/2016 2:30 PM RECORD PRESS OPERATOR Oxygen Saturation 97% 04/11/2022 3:07 PM RECORD PRESS OPERATOR Inhaled Oxygen Concentration - - Weight 146.1 kg (322 lb) 04/17/2023 4:12 PM RECORD PRESS OPERATOR Height 180.3 cm (5' 11 ) 04/17/2023 4:12 PM RECORD PRESS OPERATOR Body Mass Index 44.91 04/17/2023 4:12 PM RECORD PRESS OPERATOR Plan of Treatment Health Maintenance Due Date Last Done Comments PNEUMOCOCCAL VACCINE (1 of 2 - PCV) 2003 HIV SCREENING 2012 HPV VACCINE (1 - 3-dose series) 2012 HEPATITIS C SCREENING 07/08/2015 DTAP/TDAP/TD VACCINES (1 - Tdap) 2016 HEPATITIS B VACCINE (1 of 3 - 19+ 3-dose series) 2016 ZOSTER VACCINE (1 of 2) 2016 COVID-19 VACCINE (3 - Pfizer risk series) 04/07/2022 03/10/2022, 02/17/2022, 02/17/2022 DEPRESSION SCREENING 05/29/2023 INFLUENZA VACCINE (#1) 2024 02/17/2022 PAP SMEAR 04/11/2025 04/11/2022 HIB VACCINE Aged Out No longer eligi ble based on patient's age to complete this topic MENINGOCOCCAL VACCINE Aged Out No forrest esperanza eligible based on patient's age to complete this topic Procedures Procedure Name Priority Date/Time Associated Diagnosis Comments PAP IMAGE-GUIDED RFLX HPV Routine 04/11/2022 3:38 PM RECORD PRESS OPERATOR Well woman exam with routine gynecological exam from Last 3 Months or Most Recently Relevant to Health Maintenance Results * PAP IMAGE-GUIDED RFLX HPV (04/11/2022 3:38 PM RECORD PRESS OPERATOR) Case Report Gynecologic Cytology Report ? Case: [id number] ? Authorizing Provider: ??Alexus Díaz MD ?Collected: ? 04/11/2022 03:38 PM ? Ordering Location: ? [facility] ? Received: ?04/12/2022 12:15 PM ? [facility]cology [facility] ? [facility] ? First Screen: ?Homer, Scott Griffiths ? Specimen: ?THINPREP - IMAGE GUIDED, Cervix/Endocervix ? 04/13/2022 8:05 AM RECORD PRESS OPERATOR [facility] LMP 03/29/22 04/13/2022 8:05 AM RECORD PRESS OPERATOR [facility] Menstrual Status Oral Contraceptives 04/13/2022 8:05 AM RECORD PRESS OPERATOR [facility] Specimen Adequacy Satisfactory for evaluation, endocervical/trans formation zone component present. 04/13/2022 8:05 AM RECORD PRESS OPERATOR [facility] Categorization Negative for intraepithelial lesion or malignancy. 04/13/2022 8:05 AM RECORD PRESS OPERATOR [facility] Interpretation DIRECTOR OF CORPORATE REAL ESTATE Negative for intraepithelial lesion or malignancy. 04/13/2022 8:05 AM RECORD PRESS OPERATOR [facility] Pap Footnote The Pap Smear is a screening test. False positive and false negative results occur. Negative results do not preclude abnormalities, thus clinical correlation is required. This specimen was evaluated by the ThinPrep Imaging System along with an additional manual rescreening by a high school history teacher and/or pathologist. 04/13/2022 8:05 AM RECORD PRESS OPERATOR [facility] Pathology/Cytolo gy MISCELLANEOUS SAMPLES / Unknown 04/11/2022 3:38 PM RECORD PRESS OPERATOR 04/12/2022 12:15 PM RECORD PRESS OPERATOR Alexus Díaz MD LAB - PATHOLOGY/CY TOLOGY ORDERABLES [facility] [address] [phone] from Last 3 Months or Most Recently Relevant to Health Maintenance Care Teams Fiberglass Grinder Relationship Specialty Start Date End Date Karson Payne MD [address] [phone] PCP - General 07/12/21
--- OUTSIDE RECORDS SUMMARY | 2024-06-08 07:41 | XMS_ITS | Referral Summary ---
Author Organization [facility] Address [address] [place] [address] Care Team Providers Care Bmw Service Technician Name Role Phone Karson Payne MD Primary Care Provider +1- [phone] Source Comments [facility],non-owned Affiliates and Associated Physician Practices is amultiple site organization consisting of ambulatory clinics and hospital sitesin [place] and [place]. This disclosure is being madepursuant to the Care Everywhere program and may not contain all information available regarding this patient. Last updated 18.[facility] Allergies No known active allergies Medications * [...] 04/11/2022 Assessment & Plan (04/17/2023 4:24 PM INSOLE STIFFENER): Pap smear due 2024 Not yet due for mammogram. Family planning reviewed. She is currently using combined oral contraceptives for contraception and desires to use combined oral contraceptives in the future. She has not completed childbearing. STI screening declined at this appointment. RTC 1 year Assessment & Plan (04/11/2022 3:41 PM INSOLE STIFFENER): Pap smear performed - with reflex HPV. [...] (07/21/2021): Added automatically from request for surgery [id number] Irritable bowel syndrome with diarrhea 9 Seizure disorder 11/26/2018 Social History Tobacco Use Types Packs/Day Years [...] Comments Blood Pressure 124/80 04/17/2023 4:12 PM INSOLE STIFFENER Pulse 116 04/11/2022 3:07 PM INSOLE STIFFENER Temperature 36.5 ??C (97.7 ??F) 06/30/2016 2:30 PM CS T Respiratory Rate 18 06/30/2016 2:30 PM INSOLE STIFFENER Oxygen Saturation 97% 04/11/2022 3:07 PM INSOLE STIFFENER Inhaled Oxygen Concentration - - Weight 146.1 kg (322 lb) 04/17/2023 4:12 PM INSOLE STIFFENER Height 180.3 cm (5' 11 ) 04/17/2023 4:12 PM INSOLE STIFFENER Body Mass Index 44.91 04/17/2023 4:12 PM INSOLE STIFFENER Plan of Treatment Not on file Procedures Procedure Name Priority Date/Time Associated Diagnosis Comments PAP IMAGE-GUIDED RFLX HPV Routine 04/11/2022 3:38 PM INSOLE STIFFENER Well woman exam with routine gynecological exam from Last 3 Months or Most Recently Relevant to Health Maintenance Results * PAP IMAGE-GUIDED RFLX HPV (04/11/2022 3:38 PM INSOLE STIFFENER) Case Report Gynecologic Cytology Report ? Case: [id number] ? Authorizing Provider: ??Alexus Díaz MD ?Collected: ? 04/11/2022 03:38 PM ? Ordering Location: ? [facility] ? Received: ?04/12/2022 12:15 PM ? Gynecology and Women's ? Health ? First Screen: ?Scott Coronel ? Specimen: ?THINPREP - IMAGE GUIDED, Cervix/Endocervix ? 04/13/2022 8:05 AM [facility] LMP 03/29/22 04/13/2022 8:05 AM [facility] Menstrual Status Oral Contraceptives 04/13/2022 8:05 AM [facility] Specimen Adequacy Satisfactory for evaluation, endocervical/trans formation zone component present. 04/13/2022 8:05 AM [facility] ST[facility] Categorization Negative for intraepithelial lesion or malignancy. 04/13/2022 8:05 AM [facility] Interpretation PET HANDLER Negative for intraepithelial lesion or malignancy. 04/13/2022 8:05 AM [facility] Pap Footnote The Pap Smear is a screening test. False positive and false negative results occur. Negative results do not preclude abnormalities, thus clinical correlation is required. This specimen was evaluated by the ThinPrep Imaging System along with an additional manual rescreening by a electric system operator and/or pathologist. 04/13/2022 8:05 AM [facility] Pathology/Cytolo gy MISCELLANEOUS SAMPLES / Unknown 04/11/2022 3:38 PM INSOLE STIFFENER 04/12/2022 12:15 PM INSOLE STIFFENER Alexus Díaz MD LAB - PATHOLOGY/CY TOLOGY ORDERABLES [facility] [address] [place] [address], [facility] [phone] from Last 3 Months or Most Recently Relevant to Health Maintenance Administered Medications Care Teams Bmw Service Technician Relationship Specialty Start Date End Date Karson Payne MD [address] [phone] PCP - General 07/12/21
--- OUTSIDE RECORDS SUMMARY | 2024-06-08 07:41 | XMS_ITS | Encounter Summary ---
Author Organization [facility] Address [address] [place] [address] Care Team Providers Care Senior Linux Engineer Name Role Phone Karson Payne MD Primary Care Provider Reason for Visit * Reason Onset Date Comments Results 11/01/2021 Encounter Details Date Type Department Care Team (Late st Contact Info) Description 11/01/2021 Telephone [facility] Gynecology and Women's [facility] [address] [place], [place] [id number] Kelsie Mitchell MD [address] [place], [place] [id number] Results Social History Tobacco Use Types Packs/Day Years [...] encounter Miscellaneous Notes * Telephone Encounter - Vianca Gomes RN - 11/03/2021 1:56 PM CDT Pt called RN on nurse line. Pt wanting STD test result and yeast culture. Pt made aware testing in process and can take 7 business days to complete. Yeast culture shows a preliminary result of no growth. Pt aware once MD receives results, will review and reach out to pt * Telephone Encounter - Vianca Gomes RN - 11/01/2021 4:29 PM CDT Pt called RN on nurse line. Pt of Dr. Mitchell. Pt was in 10/29 and wanted to know if labs back. RN seesSTD testing in process and yeast culture preliminary no growth. Pt aware once results received, MD will review and reach out to her. RN sent pt a test message on [employer], she felt she wasn't active on [employer] documented in this encounter Plan of Treatment Not on file documented as of this encounter Visit Diagnoses Not on filedocumented in this encounter Care Teams Senior Linux Engineer Relationship Specialty Start Date End Date Karson Payne MD [address] [phone] PCP - General 07/12/21 documented as of this encounter
--- OUTSIDE RECORDS SUMMARY | 2024-06-08 07:41 | XMS_ITS | Encounter Summary ---
Author Organization [facility] Address [address] [address] Care Team Providers Care Customer Support Analyst Name Role Phone Karson Payne MD Primary Care Provider +1- [phone] Encounter Details Date Type Department Care Team (Late st Contact Info) Description 10/15/2021 Orders Only [facility] Gynecology and Women's Health [address] [facility] [address] [place] [address] Tala Ortiz Breakthrough bleeding on control pills Social History Tobacco Use Types Packs/Day Years [...] on file documented as of this encounter Progress Notes * Tala Lott - 10/15/2021 9:57 AM CDT Refill Request: Medication Approved Paige Zavaleta UMM: 09/27/2021Mar due: 10/25/2021Mar Scheduled: none scheduled LRF: 07/21/2021 Qty Disp: 28 Tablets # of refills: 2 Provider from last visit: Dr. Lakeshia Trejo Allergies: No Known Allergies Pended Medication Order: Requested Prescriptions Pending Prescriptions Disp Refills ??? norgestimate-ethinyl estradiol (ORTHO-CYCLEN; MONONESSA; PREVIFEM; SPRINTEC) 0.25-35 MG-MCG tablet 28 tablet 2 Sig: Take 1 (one) tablet by mouth once daily documented in this encounter Plan of Treatment Not on file documented as of this encounter Visit Diagnoses Diagnosis Breakthrough bleeding on control pills Metrorrhagia documented in this encounter Care Teams Customer Support Analyst Relationship Specialty Start Date End Date Karson Payne MD [address] [phone] PCP - General 07/12/21 documented as of this encounter
--- OUTSIDE RECORDS SUMMARY | 2024-06-08 07:41 | XMS_ITS | Encounter Summary ---
Author Organization [facility] Address [address] [place] [address]. [place] [address] [place] [address] Care Team Providers Care Mental Health Tech Name Role Phone Charla Campos PA-C Primary Care Provider +1- [phone] Reason for Visit * Reason Onset Date Comments Surgery 03/15/2024 Encounter Details Date Type Department Care Team (Late st Contact Info) Description 03/15/2024 Telephone [facility] Day [facility] [address] [place] [address] Omar Johns MD [address] [place] [id number] Surgery Social History Tobacco Use Types Packs/Day Years Used Date Smoking Tobacco: Never Smokeless Tobacco: Never Alcohol Use Standard Drinks/Week Comments Not Currently 3 (1 standard drink = 0.6 oz pur e alcohol) occasional Humiliation, Afraid, Rape, and Kick questionnair e Answer Date Recorded Within the last year, have y ou been afraid of your partner or ex-partner? Patient declined 08/19/2020 Within the last year, have y ou been humiliated or emotionally abused in other ways by your partner or ex-partner? Patient declined 08/19/2020 Within the last year, have y ou been kicked, hit, slapped, or otherwise physically hurt by your partner or ex-partner? Patient declined 08/19/2020 Within the last year, have y ou been raped or forced to have any kind of sexual activity by your partner or ex-partner? 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 Patient declined at this time. I informed her thisencounter would be closed and to call back if she wanted to reschedule. Patient VU. documented in this encounter Plan of Treatment Upcoming Encounters Date Type Department Care Team (Late st Contact Info) Description 08/21/2024 4:00 PM CDT Office Visit [facility] Family Medicine - [place] [phone] Charla Campos PA-C [address] [place] [phone] documented as of this encounter Visit Diagnoses Not on filedocumented in this encounter Additional Health Concerns Assessment Noted Time PHQ-9 Depression Total Score: 11 024 3:20 PM CDT documented as of this encounter Care Teams Mental Health Tech Relationship Specialty Start Date End Date Charla Campos PA-C [address] [place] [address] PCP - General PHYSICIAN MINE PATROL 08/22/23 documented as of this encounter
--- OUTSIDE RECORDS SUMMARY | 2024-06-08 07:41 | XMS_ITS | Clinical Summary ---
Author Organization [facility] Address [address] [place] [address]. [place] [address] [place] [address] Care Team Providers Care Technical Writer And Editor Name Role Phone Charla Campos PA-C Primary Care Provider +1- [phone] Allergies No known active allergies Medications inFLIXimab-dyyb 100 MG injectionIndicat ions:Ulcerative pancolitis without complication (CMS/HCC HHS/HCC) Inject 70 mLs (700 mg total) into the vein see administration instructions. 5 mg/kg per dose IV every 8 weeks for 12 months. 7 each 5 06/08/19 22 Active azithromycin (ZITHROMAX) 500 mg tablet Take 1 tablet (500 mg total) by mouth daily. 06/01/19 24 Active ethambutol (MYAMBUTOL) 400 MG tablet Take 4 tablets (1,600 mg total) by mouth daily. 06/01/19 24 Active Na sulfate-K sulfate-Mg sulfate (SUPREP BOWEL PREP KIT) 17.5-3.13-1.6 GM/177ML SolutionIndicati ons:Ulcerative pancolitis without complication (CMS/HCC HHS/HCC) Take 177 mLs by mouth every 12 (twelve) hours. Per GI instructions 354 mL 01/12/20 24 Active montelukast (SINGULAIR) 10 MG tabletIndication s:Chronic rhinitis TAKE 1 TABLET (10 MG TOTAL) BY MOUTH NIGHTLY AT BEDTIME. 90 tablet 1 02/19/20 24 Active dicyclomine (BENTYL) 10 MG capsuleIndicatio ns:Ulcerative pancolitis without complication (CMS/HCC HHS/HCC),Diarrhe a, unspecified type TAKE 1 CAPSULE (10 MG TOTAL) BY MOUTH FOUR (4) (FOUR) TIMES DAILY BEFORE MEALS AND NIGHTLY. 120 capsule 1 03/18/20 24 Active azaTHIOprine (IMURAN) 50 MG tabletIndication s:Ulcerative pancolitis without complication ([facility]) TAKE ONE (1) TABLET BY MOUTH EVERY DAY 90 tablet 04/22/20 24 Active SPRINTEC 28 0.25-35 MG-MCG tabletIndication s:Uses oral contraception Take 1 tablet by mouth daily. 28 tablet 3 05/30/19 25 Active SPRINTEC 28 0.25-35 MG-MCG tablet Take 1 tablet by mouth daily. 12/21/19 23 025 Discontin ued(Reord er) Active Problems Problem Noted Date Diagnosed Date Diarrhea, unspecified type 01/12/2024 Constipation, unspecified constipation type 12/27 History of seizure disorder 08/22/2023 Wound infection 04/06/2023 Cellulitis, unspecified cellulitis site 01/03/20 Morbid obesity ([facility]) 05/17/2022 Chronic rhinitis 12/28/2020 Ulcerative colitis ([facility]) 07/24/2020 Overview (07/24/2020): Added automatically from request for surgery [id number] Ulcerative pancolitis withou t complication ([facility]) 07/24/2020 Overview (07/24/2020): Added automatically from request for surgery [id number] Irritable bowel syndrome with diarrhea 9 Resolved Problems Problem Noted Date Diagnosed Date Resolved Date Acute upper respiratory infection 04/05/2021 08/22/2023 Seizure disorder ([facility]) 05/06/2019 08/22/2023 Routine general medical exam ination at a health care facility 05/06/2019 05/23/2022 Generalized abdominal pain 05/06/2019 0 08/22/2023 Encounters Date Type Department Care Team Description 05/28/2024 MyChart Message Enc [facility] Family Medicine - [place] [address] [place] [address] Charla Campos PA-C control- refill needed 05/24/2024 Scan [facility] SRVCS Scanned, [facility] 03/26/2024 Scan [facility] INFO SRVCS Scanned, Doc [facility] 03/15/2024 Telephone [facility] Day [facility] [address] [place] [address] Omar Johns MD Surgery 03/11/2024 Orders Only [facility] Multispecialty Care - [facility] [address] [facility] [facility] [place] [address] Anita Reyna MA from Last 3 Months Immunizations Name Administration Dates Next Due Hepatitis A (Havrix 14[address].U) 07/15/2019 Hepatitis B(Engerix B Adult) 07/15/2019 Influenza Adult (Generic) 02/17/2022 PFIZER COVID-19 (ORIGINAL FO RMULATION, PURPLE CAP) mRNA, LNP-S, PF, 30 MCG/0.3 ML DOSE 02/17/2022 Family History Medical History Relation Comments Hypertension Father Cancer Mother Depression Mother Mental Health Mother Miscarriages / Stillbirths Mother Relation Status Comments Father Alive Mother Alive Social History Tobacco Use Types Packs/Day Years Used Date Smoking Tobacco: Never Smokeless Tobacco: Never Tobacco Cessation:Counseling Given: Not Answered Alcohol Use Standard Drinks/Week Comments Not Currently [...] file Not on file Not on file Last Filed Vital Signs Vital Sign Reading Time Taken Comments Blood Pressure 125/75 01/12/2024 11:52 AM CDT Pulse 85 01/12/2024 11:52 AM CDT Temperature 36.8 ??C (98.2 ??F) 01/12/2024 11:52 AM C DT Respiratory Rate 20 12/20/2022 9:39 AM CDT Oxygen Saturation 98% 01/12/2024 11:52 AM CDT Inhaled Oxygen Concentration - - Weight 151 kg (332 lb 14.4 oz) 01/12/2024 11:52 AM CDT Height 179.1 cm (5' 10.5 ) 01/12/2024 11:52 AM C DT Body Mass Index 47.09 01/12/2024 11:52 AM CDT Plan of Treatment Upcoming Encounters Date Type Department Care Team (Late st Contact Info) Description 08/21/2024 4:00 PM CDT Office Visit [facility] Family Medicine - [address] [phone] Charla Campos PA-C [address] [place] [phone] Health Maintenance Due Date Last Done Comments Pneumococcal Vaccine: Pediatrics (0 to 5 Years) and At-Risk Patients (6 to 64 Years) (1 of 2 - PCV) 2003 HPV Vaccines (1 - 3-dose series) 2012 DTaP, Tdap and Td Vaccines (1 - Tdap) 2016 Hepatitis B Vaccines (2 of 3 - 19+ 3-dose series) 08/12/2019 07/15/2019 Influenza Adult (#1) 2024 02/17/2022 Annual Physical 08/07/2024 05/17/2022, 08/0 06/2020, 05/06/2019 Postponed from 05/17/2023 (Going to Outside Clinic) COVID-19 Vaccine (3 - Pfizer risk series) 08/07/2024 03/10/2022, 02/17/2022 Postponed from 04/07/2022 (Going to Outside Clinic) Cervical Cancer Screening Pap Smear (Age 21 to 29) Every 3 Years 04/11/2025 04/11/2022, 12/28/2020, 12/28/2020, Additional history exists Cervical Cancer Screening 04/11/2025 Hepatitis C Completed 06/28/2019 Meningococcal Vaccine Aged Out No forrest esperanza eligible based on patient's age to complete this topic RSV Immunizations Under 20 Months Aged Out No longer eligible based on patient's age to complete this topic Procedures Procedure Name Priority Date/Time Associated Diagnosis Comments THINPREP IMAGING SYSTEM PAP Routine 12/28/2020 4:10 PM CDT Encounter for screening for malignant neoplasm of cervix Screening for STD (sexually transmitted disease) HEPATITIS PANEL,ACUTE Routine 06/28/2019 12:54 PM CITY DETECTIVE Acute ulcerative colitis with complication (CMS/HCC HHS/HCC) from Last 3 Months or Most Recently Relevant to Health Maintenance Results * (ABNORMAL) THINPREP IMAGING SYSTEM PAP (12/28/2020 4:10 PM CDT) THIN PREP PAP SEE RESULTS BELOW(A) [facility] Comment: CASE REPORT: CYTOLOGY GYNECOLOGICAL REPORT ? CASE: [id number] ? AUTHORIZING PROVIDER: ??MONIK FONSECA MD ? COLLECTED: ? 12/28/2020 1610 ?? ORDERING LOCATION: ? [facility] ? RECEIVED: ? 12/29/2020 0716 ?? FIRST SCREEN: ?STRUTZ, DENA, CT ? PATHOLOGIST: ? TRENTON CHAVARRIA MD ? SPECIMEN: ?SCREENING PAP - IMAGED, CERVIX ? STATEMENT OF ADEQUACY: SATISFACTORY FOR EVALUATION ? TRANSFORMATION ZONE COMPONENT PRESENT ? PARTIALLY OBSCURING INFLAMMATION PRESENT. ? FINAL DIAGNOSIS: EPITHELIAL CELL ABNORMALITY, SQUAMOUS CELL: ? ATYPICAL SQUAMOUS CELLS OF UNDETERMINED SIGNIFICANCE. ? SHIFT IN RANDA SUGGESTIVE OF BACTERIAL VAGINOSIS. ? ELECTRONICALLY SIGNED BY TRENTON CHAVARRIA MD ON 12/30/2020 AT ??4:44 PM ? CHARTABLE COMMENT: NOTE: THIS SPECIMEN WAS REVIEWED BY A PRECISION DYER AND/OR PATHOLOGIST ( INDICATED IN THIS REPORT) AFTER EVALUATION USING THE MiniTime IMAGING SYSTEM. CLINICAL INFORMATION: MENSTRUAL STATUS: ? LMP (IF APPLICABLE): ? CLINICAL HISTORY/PREVIOUS PAP: ? TYPE OF NEOPLASIA (IF APPLICABLE): ? SIGNIFICANT CLINICAL FINDINGS: ? OTHER HISTORY: ? HORMONES (IF APPLICABLE): ? SUGGESTED FOLLOW-UP: FOLLOW UP WARRANTED, BASED ON CURRENT GUIDELINES AND INDIVIDUAL PATIENT CONSIDERATIONS. 12/28/2020 4:10 PM CDT 12/29/2020 7:16 AM CDT Narrative [facility] - 12/30/2020 4:44 PM CDT SCREENING OR FOLLOW-UP OF ABNORMAL RESULTS?->SCREENING GYNE SOURCE:->CERVIX RELEASE TO PATIENT->SYSTEM RELEASE us Monik Fonseca MD PATHOLOGY/CYTOLOGY ORDERABL ES [place] [address], * HEPATITIS PANEL,ACUTE (06/28/2019 12:54 PM CITY DETECTIVE) HEPATITIS B SURFACE AG NON-REACTI VE NON-REACTI VE 06/28/2019 11:43 PM CITY DETECTIVE [facility] HEP B CORE IGM NON-REACTI VE NON-REACTI VE 06/28/2019 11:43 PM CITY DETECTIVE [facility] HAV IGM NON-REACTI VE NON-REACTI VE 06/28/2019 11:43 PM CITY DETECTIVE [facility] HEPATITIS C AB NON-REACTI VE NON-REACTI VE 06/28/2019 11:43 PM CITY DETECTIVE [facility] 06/28/2019 12:5 4 PM CITY DETECTIVE us Omar Johns MD LABORATORY Final Result [facility] [address] [place] [address], from Last 3 Months or Most Recently Relevant to Health Maintenance Insurance [facility] Care Teams Technical Writer And Editor Relationship Specialty Start Date End Date Charla Campos PA-C [address] [place] [address] PCP - General PHYSICIAN SUPERVISOR SCREEN MAKING 08/22/23
--- OUTSIDE RECORDS SUMMARY | 2024-06-08 07:41 | XMS_ITS | Encounter Summary ---
Author Organization [facility] Address [address] [place] [address] Care Team Providers Care Construction Job Titles Name Role Phone Karson Payne MD Primary Care Provider +1- [phone] Encounter Details Date Type Department Care Team (Latest Contact Info) Description 04/17/2023 Travel Social History Tobacco Use Types Packs/Day Years Used Date Smoking Tobacco: Never Passive Smoke Exposure: Yes Smokeless Tobacco: Never Alcohol Use Standard Drinks/Week Comments Yes 1 (1 standard drink = 0.6 oz pur e alcohol) 1 drink weekly Sex and Gender Information Value Date Recorded Sex Assigned at Not on file Gender Identity Not on file Sexual Orientation Not on file documented as of this encounter Plan of Treatment Not on file documented as of this encounter Visit Diagnoses Not on filedocumented in this encounter Care Teams Construction Job Titles Relationship Specialty Start Date End Date Karson Payne MD [address] [phone] PCP - General 07/12/21 documented as of this encounter
--- OUTSIDE RECORDS SUMMARY | 2024-06-08 07:41 | XMS_ITS | Encounter Summary ---
Author Organization [facility] Address [address] [place] [address] Care Team Providers Care Ocean Freight Forwarder Name Role Phone Karson Payne MD Primary Care Provider Encounter Details Date Type Department Care Team (Late st Contact Info) Description 03/29/2023 Lab Requisition [facility] - DermPath Lab [address] [facility], [place] [phone] Luis Harris MD [address] [place] [address] Social History Tobacco Use Types Packs/Day Years [...] Procedure Name Priority Date/Time Associated Diagnosis Comments IMMUNOFLUORESCENT STUDY DERM Routine 03/28/2023 12:00 AM CDT documented in this encounter Results * IMMUNOFLUORESCENT STUDY DERM (03/28/2023 12:00 AM CDT) Case Report Dermatopathol ogy Report ? Case: [id number] ? Authorizing Provider: ??Luis Harris MD ?Collected: ? 03/28/2023 12:00 AM ? Ordering Location: ? [facility] ? Received: ?03/29/2023 04:58 PM ? Pathologist: ? Kasie Shine MD ? Specimen: ?Skin, right ant dorsal foot ? 3 2:38 PM CDT DERMATOPATHOLOGY LABORATORY Final Diagnosis Specimen A. SKIN, right ant dorsal foot: NO IMMUNOPATHOLO GICAL ABNORMALITY (L98.9) (see fixed tissue results) 3 2:38 PM CDT DERMATOPATHOLOGY LABORATORY Direct Immunofluorescence Report - Specimen A Specimen A IgA IgM IgG C3 CollV Fibrinogen Epidermis Negative Rare colloid Negative Negative Negative Negative Basement Membrane Negative Negative Negative Negative 2+ Negative Vessels Negative Negative Negative Negative 2+ Negative Interstitium Negative Negative Negative Negative Negative Non specific 3 2:38 PM CDT DERMATOPATHOLOGY LABORATORY Clinical History R/O Atypical 3 2:38 PM CDT DERMATOPATHOLOGY LABORATORY Gross Description Specimen A: Received is one SeatIDs media filled container labeled with the patient's name and designated right ant dorsal foot. The specimen consists of a shave biopsy measuring 6x4x1 mm. The specimen is submitted in whole for direct immunofluores cence testing. 3 2:38 PM CDT DERMATOPATHOLOGY LABORATORY Microscopic Description Specimen A. SKIN, right ant dorsal foot: Controls were run in parallel. Staining is negative with IgA, IgM, IgG, and C3. Collagen IV stains the basement membrane zone and vessels. Fibrinogen shows non-specific staining. A hematoxylin and eosin stained frozen section shows no significant inflammation. See fixed tissue results. 3 2:38 PM CDT DERMATOPATHOLOGY LABORATORY Disclaimer An external and internal positive and negative controls are appropriate for the histochemical , immunohistoch emical and immunofluores cence stain(s) in this case (if any), except where stated explicitly. The performance characteristi cs of the stain(s) cited in this report were developed and its performance characteristi c determined by the Dermatopathol ogy Laboratory at [facility], directed by Dr. Ruddy Goodwin. These tests need not be, and therefore are not, approved by the [place] Food and Drug Administratio n. The tests are used for clinical purposes. Billing Codes Specimen Charges Stain Charges 01368 13805 66617 08575 54948 73337 1 1 1 1 1 1 3 2:38 PM CDT DERMATOPATHOLOGY LABORATORY Embedded Images 3 2:38 PM CDT DERMATOPATHOLOGY LABORATORY Pathology/Cytolog y TISSUE SPECIMEN FROM SKIN / Unknown 03/28/2023 03/29/2023 4:58 PM CDT Luis Harris MD LAB - PATHOLOGY/CYTO LOGY ORDERABLES DERMATOPATHOLOGY LABORATORY [facility] - Department of Dermatology [facility] [address] [place] [address], [address] [phone] documented in this encounter Visit Diagnoses Not on filedocumented in this encounter Care Teams Ocean Freight Forwarder Relationship Specialty Start Date End Date Karson Payne MD [address] [address] PCP - General 07/12/21 documented as of this encounter
--- OUTSIDE RECORDS SUMMARY | 2024-06-08 07:41 | XMS_ITS | Encounter Summary ---
Author Organization [facility] Address [address] [place] [address] Care Team Providers Care Master Of Ceremonies Name Role Phone Karson Payne MD Primary Care Provider [phone] Reason for Visit * Reason Onset Date Comments Refill Request 03/31/2023 Encounter Details Date Type Department Care Team (Late st Contact Info) Description 03/31/2023 Telephone [facility] - FOREIGN EXCHANGE POSITION CLERK [address] [facility] [address] [place] [address] Alexus Díaz MD [address] [facility] [address] [place], [place] [id number] Refill Request Social History Tobacco Use Types [...] encounter Miscellaneous Notes * Telephone Encounter - Miranda Iniguez - 03/31/2023 12:40 PM CDT Pharmacy calling, states pt having her prescriptions transferred to this [facility], no refills remaining from [facility] 04/11/22. Pt requests refill norgestimate tablets, 90 day supply sent to continue therapy until pending [facility] 04/17/23. * Telephone Encounter - Laila Bradford - 03/31/2023 12:21 PM CDT [facility] in [place], [place] os calling in regards to pt's BC refill. CB #: [phone] documented in this encounter Plan of Treatment Not on file documented as of this encounter Visit Diagnoses Not on filedocumented in this encounter Care Teams Master Of Ceremonies Relationship Specialty Start Date End Date Karson Payne MD [address] [address] PCP - General 07/12/21 documented as of this encounter
--- OUTSIDE RECORDS SUMMARY | 2024-06-08 07:41 | XMS_ITS | Encounter Summary ---
Author Organization [facility] Address [address] [facility] [place] [address] Care Team Providers Care Compounder Sterile Products Name Role Phone Leta Villanueva MD Primary Care Provider Unavailabl e Reason for Visit * Reason Comments Imm Inj tb screening Encounter Details Date Type Department Care Team (Late st Contact Info) Description 02/29/2016 11:15 AM CDT Office Visit [facility] AT [address] [address] Screening examination for pulmonary tuberculosis (Primary Dx) Social History Tobacco Use Types Packs/Day Years Used Date Smoking Tobacco: Never Sex and Gender Information Value Date Recorded Sex Assigned at Not on file Gender Identity Not on file Sexual Orientation Not on file documented as of this encounter Patient Instructions * Patient Instructions* Lou Graham APRN-TARE MAN - 02/29/2016 3:33 PM CDT Tuberculin Skin Test VENEER TAPING MACHINE OPERATOR: A tuberculin skin test is done to see if you are infected with the bacteria that cause tuberculosis(TB). Tuberculin is a liquid that healthcare providers inject into the skin of your arm. Your skin will react to tuberculin if you are infected. TB is a serious infection that usually starts in the lungs. The bacteria are easily spread from one person to another through the air. They can live in your body a long time without making you sick. This is called latent TB. Latent TB can develop into active TB if it is not treated. Why you may need a tuberculin skin test: ?? You need to be screened for your job. ?? You live with or have spent time with someone who has TB. ?? You live in or have lived in a location where active TB is common. ?? Your immune system is weak from disease or old age. ?? You have signs of active TB. For example, you cough up blood or have night sweats. ?? You inject illegal drugs. Your risk for TB is higher if you inject illegal drugs. Seek care immediately if: ?? You have chest pain. ?? You have a mild cough that gets worse. You may cough up white, yellow blood- streaked sputum. ?? You have blisters, ulcers, or your skin has turned black in the injection area. ?? Your skin is itchy, or you have a rash or hives that are spreading. ?? Your face is red and swollen. ?? Your mouth is swollen, your throat feels tight, or you have trouble breathing. Contact your healthcare provider if: ?? You have questions or concerns about the test or about TB. After the test: ?? Return in 2 to 3 days. Your skin must be checked 2 to 3 days after the test. You will need another TB skin test if you do not come back within 3 days. ?? Watch for signs of allergic reaction. Some people have an allergic reaction to tuberculin. Seek care immediately if you have any symptoms of allergic reaction, such as hives or swelling. What the test results mean: The TB skin test can only show that you were infected with the germ that causes tuberculosis. You will need more tests to learn if you have latent or active TB. The most common tests are chest x-rays and sputum samples. ?? Your test is positive if the area around the skin test is raised or hard. Your test can be positive even if you do not have active TB. This would happen if you received a BCG vaccination for TB. ?? Your test is negative if there is no change to your skin. Your test can be negative even if you do have TB. Your immune system may be too weak to react to the tuberculin, or you may have been exposed too recently. ?? 2016 [employer]. Information is for End User's use only and may not be sold, redistributed or otherwise used for commercial purposes. All illustrations and images included in CareNotes?? are the copyrighted property of [employer]. or [employer]. The above information is an surgical aide only. It is not intended as medical advice for individual conditions or treatments. Talk to your doctor, nurse or pharmacist before following any medical regimen to see if it is safe and effective for you. documented in this encounter Progress Notes * Lou Graham APRN-CNP - 02/29/2016 3:34 PM CDT Here for TB screening documented in this encounter Plan of Treatment Not on file documented as of this encounter Procedures Procedure Name Priority Date/Time Associated Diagnosis Comments SKIN TEST PPD - POINT OF CARE Routine 02/29/2016 3:30 PM CDT Screening examination for pulmonary tuberculosis documented in this encounter Results * SKIN TEST PPD - POINT OF CARE (02/29/2016 3:30 PM CDT) PPD Other (qualifier value) MISCELLANEOUS SAMPLES / Unknown 02/29/2016 3:30 PM CDT [facility] - POINT OF CARE ORDERABLES documented in this encounter Visit Diagnoses Diagnosis Screening examination for pulmonary tuberculosis- Primary documented in this encounter Administered Medications Administered Medications Medication Order MAR Action Action Date Dose Rate Site PPD Intradermal Given 02/29/2016 15:30 CDT 0.1 mL Left For earm documented in this encounter Care Teams Compounder Sterile Products Relationship Specialty Start Date End Date Leta Villanueva MD PCP - General 02/29/16 07/11/21 documented as of this encounter
--- OUTSIDE RECORDS SUMMARY | 2024-06-08 07:41 | XMS_ITS | Encounter Summary ---
Author Organization [facility] Address [address] [place] [address]. [place] [address] [place] [address] Care Team Providers Care Search Engine Marketing Manager Name Role Phone Charla Campos PA-C Primary Care Provider [phone] Encounter Details Date Type Department Care Team (Late st Contact Info) Description 05/28/2024 Webspy Message Enc [facility] Family Medicine - [place] [address] [place] [address] Charla Campos PA-C [address] [place], [place] [phone] control- refill needed Social History Tobacco Use Types Packs/Day Years [...] as of this encounter Progress Notes * Rosalva Zapata MA - 05/30/2024 11:04 AM CST RX Pended for physician approval N SERVICES PROFESSIONAL documented in this encounter Plan of Treatment Upcoming Encounters Date Type Department Care Team (Late st Contact Info) Description 08/21/2024 4:00 PM CDT Office Visit [facility] Family Medicine - [address] [address] Charla Campos PA-C [address] [place] [phone] documented as of this encounter Visit Diagnoses Diagnosis Constipation, unspecified constipation type- Primary Ulcerative pancolitis without complication ([facility]) Uses oral contraception Surveillance of previously prescribed contraceptive pill documented in this encounter Additional Health Concerns Assessment Noted Time PHQ-9 Depression Total Score: 11 024 3:20 PM CDT documented as of this encounter Care Teams Search Engine Marketing Manager Relationship Specialty Start Date End Date Charla Campos PA-C [address] [place] [phone] PCP - General PHYSICIAN MACHINE BURRER 08/22/23 documented as of this encounter
--- OUTSIDE RECORDS SUMMARY | 2024-06-08 07:41 | XMS_ITS | Encounter Summary ---
Author Organization [facility] Address [address] [place] [address] Care Team Providers Care Paleobotanist Name Role Phone Karson Payne MD Primary Care Provider Encounter Details Date Type Department Care Team (Late st Contact Info) Description 03/29/2023 Lab Requisition [facility] - DermPath Lab [address] [facility], [place] [phone] Luis Harris MD [address] [place] [address] Social History Tobacco Use Types [...] Procedure Name Priority Date/Time Associated Diagnosis Comments DERMATOPATHOLOGY Routine 03/28/2023 12:0 0 AM CDT documented in this encounter Results * DERMATOPATHOLOGY (03/28/2023 12:00 AM CDT) Case Report Dermatopathology Report ? Case: [id number] ? Authorizing Provider: ??Luis Harris MD ?Collected: ? 03/28/2023 12:00 AM ? Ordering Location: ? [facility] DermPath Lab ? Received: ?03/29/2023 04:56 PM ? Pathologist: ? Kasie Shine MD ? Specimen: ?Skin, right lateral ankle ? 3 5:[address] [facility] DERMATOPATHOLOGY LABORATORY Final Diagnosis Specimen A. 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 DERMATOPATHOLOGY LABORATORY Clinical History R/O Atypical 3 5:[address] [facility] DERMATOPATHOLOGY LABORATORY Gross Description Specimen A: Received is one formalin filled container labeled with the patient's name and designated right lateral ankle. The specimen consists of a shave biopsy measuring 7x6x2 mm. Jar 0. 3 5:[address] [facility] DERMATOPATHOLOGY LABORATORY Microscopic Description Specimen A. SKIN, right lateral ankle: Sections display epidermal acanthosis accompanied by dilated follicular infundibula and cystic structures containing suppurative debris. Within the dermis there is a dense, mixed infiltrate of lymphocytes and histiocytes as well as neutrophils. Within one of the cystic structures, there appears to be foreign calcareus material which may be consistent with coral or another sea-dwelling structure. GMS, PAS and Grupo tissue stains are negative for microorganisms. COMMENT: I favor these findings to represent a hypersensitivity/fo reign-body response to the patient's documented injury to coral a few months prior. Similar histopathologic and clinical findings have been reported secondary to injury from coral as well as sea urchin spines. Though tissue stains are negative, infection remains a diagnostic consideration and tissue culture is encouraged to definitively exclude this possibility. This case has been reviewed by Dr. Kathy Nye who concurs with the diagnosis. 3 5:[address] [facility] DERMATOPATHOLOGY LABORATORY Disclaimer An external and internal positive and negative controls are appropriate for the histochemical, immunohistochemical and immunofluorescence stain(s) in this case (if any), except where stated explicitly. The performance characteristics of the stain(s) cited in this report were developed and its performance characteristic determined by the Dermatopathology Laboratory at [facility], directed by Dr. Ruddy Goodwin. These tests need not be, and therefore are not, approved by the [place] Food and Drug Administration. The tests are used for clinical purposes. Billing Codes Specimen Charges Stain Charges 46071 1 [id number] 66036 96771 1 1 1 3 5:[address] [facility] DERMATOPATHOLOGY LABORATORY Embedded Images 3 5:[address] [facility] DERMATOPATHOLOGY LABORATORY Pathology/Cytolog y TISSUE SPECIMEN FROM SKIN / Unknown 03/28/2023 03/29/2023 4:56 PM CDT Luis Harirs MD LAB - PATHOLOGY/CYTO LOGY ORDERABLES DERMATOPATHOLOGY LABORATORY [facility] - Department of Dermatology [address], [address] [phone] documented in this encounter Visit Diagnoses Not on filedocumented in this encounter Care Teams Paleobotanist Relationship Specialty Start Date End Date Karson Payne MD [address] [phone] PCP - General 07/12/21 documented as of this encounter
--- OUTSIDE RECORDS SUMMARY | 2024-06-08 07:41 | XMS_ITS | Encounter Summary ---
Author Organization [facility] Address [address] [place] [address]. [place], [place] [address] [place] [address] Care Team Providers Care Gang Mower Operator Name Role Phone Charla Campos PA-C Primary Care Provider [phone]- [phone] Encounter Details Date Type Department Care Team (Latest Contact Info) Description 03/26/2024 Scan [facility] Scanned, Doc Med Group Social History Tobacco Use Types Packs/Day Years [...] as of this encounter Plan of Treatment Upcoming Encounters Date Type Department Care Team (Late st Contact Info) Description 08/21/2024 4:00 PM CDT Office Visit [facility] Family Medicine - [place] [address] [place] [address] Chalra Campos PA-C [address] [place] [address] documented as of this encounter Visit Diagnoses Not on filedocumented in this encounter Additional Health Concerns Assessment Noted Time PHQ-9 Depression Total Score: 11 024 3:20 PM CDT documented as of this encounter Care Teams Gang Mower Operator Relationship Specialty Start Date End Date Charla Campos PA-C [address] [place] [address] PCP - General PHYSICIAN SHIP SURVEYOR 08/22/23 documented as of this encounter
--- OUTSIDE RECORDS SUMMARY | 2024-06-08 07:41 | XMS_ITS | Encounter Summary ---
Author Organization [facility] Address [address] [place] [address] Care Team Providers Care Warp Splitter Name Role Phone Leta Villanueva MD Primary Care Provider Unavailabl e Reason for Visit * Reason Onset Date Comments Follow-up 07/02/2016 Encounter Details Date Type Department Care Team (Late st Contact Info) Description 07/02/2016 Telephone [facility] [employer] [facility] AT [address] [address] Wanda Helton APRN-[place]/TRACK AND FIELD COACH [address] [place] [address] Follow-up Social History Tobacco Use Types Packs/Day Years Used Date Smoking Tobacco: Never Sex and Gender Information Value Date Recorded Sex Assigned at Not on file Gender Identity Not on file Sexual Orientation Not on file documented as of this encounter Plan of Treatment Not on file documented as of this encounter Visit Diagnoses Not on filedocumented in this encounter Care Teams Warp Splitter Relationship Specialty Start Date End Date Leta Villanueva MD PCP - General 02/29/16 07/11/21 documented as of this encounter
--- OUTSIDE RECORDS SUMMARY | 2024-06-08 07:41 | XMS_ITS | Encounter Summary ---
Author Organization [facility] Address [address] [place] [address] Care Team Providers Care Community Support Associate Name Role Phone Karson Payne MD Primary Care Provider Reason for Visit * Reason Comments Well Women Exam Encounter Details Date Type Department Care Team (Late st Contact Info) Description 04/11/2022 3:00 PM WOODWORKING MACHINE OPERATOR Office Visit [facility] [address] [place] [address] Alexus Díaz MD [address] [address] Well woman exam with routine gynecological exam [...] Sign Reading Time Taken Comments Blood Pressure 124/74 04/11/2022 3:07 PM WOODWORKING MACHINE OPERATOR Pulse 116 04/11/2022 3:07 PM WOODWORKING MACHINE OPERATOR Temperature - - Respiratory Rate - - Oxygen Saturation 97% 04/11/2022 3:07 PM WOODWORKING MACHINE OPERATOR Inhaled Oxygen Concentration - - Weight 141.5 kg (312 lb) 04/11/2022 3:07 PM WOODWORKING MACHINE OPERATOR Height 180.3 cm (5' 11 ) 04/11/2022 3:07 PM WOODWORKING MACHINE OPERATOR Body Mass Index 43.52 04/11/2022 3:07 PM WOODWORKING MACHINE OPERATOR documented in this encounter Progress Notes * Alexus Díaz MD - 04/11/2022 3:38 PM CST General agricultural real estate agent Patient Progress Note History of Present Illness: Ms. Moreno a 26 year old female who presents for annual well woman exam. She reports no complaints and no vaginal discharge, heavy periods, irregular periods, infertility, pelvic pain and concern for STI. Her prior symptoms of vaginitis have resolved and she hasn't had issues since her last appointment.Declines STI testing at this appointment. Doing well on her pill. Gynecologic history: regular, monthly, on pill Pap smear history: ascus last year, due STI history: trichomonas earlier this year Obstetrical history: OB History Para Term AB [...] 10 mg by mouth once daily ??? doxycycline hyclate (Vibramycin) 100 MG capsule TAKE 1 CAPSULE BY MOUTH TWICE DAILY FOR 7 DAYS ??? Estarylla 0.25-35 MG-MCG tablet TAKE 1 TABLET BY MOUTH EVERY DAY 28 tablet 2 ??? inFLIXimab-dyyb (INFLECTRA IV) ??? Levocetirizine Dihydrochloride (XYZAL PO) Take by mouth once daily ??? montelukast (SINGULAIR) 10 MG tablet Take 10 mg by mouth at bedtime ??? norgestimate-ethinyl estradiol (Estarylla) 0.25-35 MG-MCG tablet Take 1 (one) tablet by mouth once daily 3 packet 3 No current facility-administered medications for this visit. Allergies: No Known Allergies Review of Systems All other systems reviewed and are negative. Physical examination: Vitals: 04/11/22 1507 BP: 124/74 Pulse: (!) 116 SpO2: 97% Weight: (!) 312 lb Height: 5' 11 Body mass index is 43.52 kg/m??. Physical Exam Constitutional: General: She is [...] urethral lesion. Vagina: No signs of injury. Vaginal discharge present. No erythema, tenderness, bleeding, lesions or prolapsed vaginal [...] exam with routine gynecological exam Pap smear performed - with reflex HPV. [...] of cancer have been in her family. Next visit in 1 year Alexus Díaz MD WORKING MACHINE OPERATOR documented in this encounter Plan of Treatment Not on file documented as of this encounter Procedures Procedure Name Priority Date/Time Associated Diagnosis Comments PAP IMAGE-GUIDED RFLX HPV Routine 04/11/2022 3:38 PM WOODWORKING MACHINE OPERATOR Well woman exam with routine gynecological exam WET PREP - POINT OF CARE (AMB) [facility] Routine 04/11/2022 Well woman exam with routine gynecological exam documented in this encounter Results * PAP IMAGE-GUIDED RFLX HPV (04/11/2022 3:38 PM WOODWORKING MACHINE OPERATOR) Case Report Gynecologic Cytology Report ? Case: [id number] ? Authorizing Provider: ??Alexus Díaz MD ?Collected: ? 04/11/2022 03:38 PM ? Ordering Location: ? [facility] ? Received: ?04/12/2022 12:15 PM ? [facility]cology [facility] ? First Screen: ?Scott Coronel ? Specimen: ?THINPREP - IMAGE GUIDED, Cervix/Endocervix ? 04/13/2022 8:05 AM WOODWORKING MACHINE OPERATOR [facility] LMP 03/29/22 04/13/2022 8:05 AM [facility] Menstrual Status Oral Contraceptives 04/13/2022 8:05 AM [facility] Specimen Adequacy Satisfactory for evaluation, endocervical/trans formation zone component present. 04/13/2022 8:05 AM [facility] Categorization Negative for intraepithelial lesion or malignancy. 04/13/2022 8:05 AM [facility] Interpretation LAMP DEVELOPER Negative for intraepithelial lesion or malignancy. 04/13/2022 8:05 AM [facility] Pap Footnote The Pap Smear is a screening test. False positive and false negative results occur. Negative results do not preclude abnormalities, thus clinical correlation is required. This specimen was evaluated by the [employer] [facility] System along with an additional manual rescreening by a civil laboratory technician and/or pathologist. 04/13/2022 8:05 AM [facility] Pathology/Cytolo gy MISCELLANEOUS SAMPLES / Unknown 04/11/2022 3:38 PM WOODWORKING MACHINE OPERATOR 04/12/2022 12:15 PM WOODWORKING MACHINE OPERATOR Alexus Díaz MD LAB - PATHOLOGY/CY TOLOGY ORDERABLES Performing Organization Address City/State/[facility] Co de Phone Number [facility] [address] [phone] * WET PREP - POINT OF CARE (AMB) [facility] (04/11/2022) pH Wet Prep 4.5 Yeast Wet Prep absent Trichomonas Wet Prep Absent Bacteria Wet Prep absent Whiff Test negative BODY FLUID SPECIMEN / Unknown 04/11/2022 Alexus Díaz MD LAB - POINT OF CAR E ORDERABLES documented in this encounter Visit Diagnoses Diagnosis Well woman exam with routine gynecological exam- Primary Routine gynecological examination * Assessment & Plan Note - Alexus Díaz MD - 04/11/2022 3:40 PM WOODWORKING MACHINE OPERATOR Associated Problem(s): Well woman exam with routine gynecological exam Pap smear performed - with reflex HPV. [...] of cancer have been in her family. WORKING MACHINE OPERATOR documented in this encounter Care Teams Community Support Associate Relationship Specialty Start Date End Date Karson Payne MD [address] [phone] PCP - General 07/12/21 documented as of this encounter
--- OUTSIDE RECORDS SUMMARY | 2024-06-08 07:41 | XMS_ITS | Encounter Summary ---
Author Organization [facility] Address [address] [facility] [place] [address] Care Team Providers Care Upper Inspector Name Role Phone Karson Payne MD Primary Care Provider Reason for Visit * Reason Comments Vulvar Irritation BV Encounter Details Date Type Department Care Team (Late st Contact Info) Description 07/21/2021 1:00 PM DIRECTOR EMERGENCY Office Visit [facility] [address] [place], [place] [id number] Raysa Asher, COMPOSITE LAYUP WORKER-HEALTH INSURANCE SALES AGENT [address] [address] Chronic vulvitis (Primary Dx); Vaginal discharge; Dyspareunia in female; Breakthrough bleeding on control pills Social History [...] Sign Reading Time Taken Comments Blood Pressure 136/82 07/21/2021 12:59 PM DIRECTOR EMERGENCY Pulse - - Temperature - - Respiratory Rate - - Oxygen Saturation - - Inhaled Oxygen Concentration - - Weight 125.6 kg (277 lb) 07/21/2021 12:59 PM DIRECTOR EMERGENCY Height 180.3 cm (5' 11 ) 07/21/2021 12:59 PM DIRECTOR EMERGENCY Body Mass Index 38.63 07/21/2021 12:59 PM DIRECTOR EMERGENCY documented in this encounter Patient Instructions * Patient Instructions* Raysa Asher APRN-CNP - 07/21/2021 12:51 PM DIRECTOR EMERGENCY Follow the Vulvar skin care guidelines: Gain free & clear Use dryer balls Dove sensitive skin bar soap. For you & your man. Keep The water lukewarm. Cotton is better for underwear Sleep without underpants, Mens boxer short is ok to sleep Keep a Slinger style Pants or shorts Mainly cotton. Sitz baths: Use your bath tub if it is clean and rinsed thoroughly. Adjust the amount of baking soda depending on the size of the tub and depth of the water. Use lukewarm to cool water and baking soda & sit for 5 minutes. 1/4 cup Look at [facility] or [employer] for a bath tub drain plug. Use a tiny amount of a vegetable based oil such as crisco or coconut oil many times a day to the outer vulvar skin and in the vaginal opening. Use once a day deep up inside the vagina. Use as a lubricant with sex unless you are attempting a . Use on toilet paper to clean after a BM No wipes! Rinse with tap water & then blot I recommend you look into getting a bidet attachment for your toilet. Simple Spa: https://www.[employer]Akvo/gsmkcjrgc-oziahacm-gfac-nozzle-bidet/ Luxe: https://Yesweplay.Akvo/ Both are is a very affordable brands that can be bought on [employer] or on their websites Avoid the ukltra strong or soft Take the fluconazole 200 mg tablet, one by mouth every other day for three doses. e size of the tub and depth of the water. Use lukewarm to cool water and baking soda & sit for 5 minutes. 1/4 cup [facility] documented in this encounter Progress Notes * Raysa Asher APRN-HEALTH INSURANCE SALES AGENT - 07/21/2021 1:00 PM CST Images from the original note were not included. [facility] New Patient Intake Date: 07/21/2021 Refererring Physician: Unknown, Provider Dr Tessy Payne Age: [age] year old VS: BP 136/82 Ht 5' 11 (1.803 m) Wt 277 lb (125.6 kg) BMI 38.63 kg/m2 Allergies: Patient has no known allergies. Medication(s): See list Medical History: Past Medical History: Diagnosis Date ??? Atypical squamous cells of undetermined significance (ASCUS) on Papanicolaou smear of cervix negative HPV ??? Crohn's disease ??? Depression ??? Seizures ??? Ulcerative colitis Surgical History: Past Surgical History: Procedure Laterality Date ??? COLONOSCOPY multiple ??? Tonsillectomy Review of Systems: Constitutional: Negative Eyes: Negative Ears, nose, mouth, throat, and face: Negative Respiratory: Negative Cardiovascular: Negative Gastrointestinal: Negative Genitourinary:Nocturia Integument/breast: Negative Hematologic/lymphatic: Easy bruising Musculoskeletal: Back pain Neurological: Memory problems Behavioral/Psych: Anxiety and Depression Endocrine: Negative Allergic/mmunologic: Negative Chief Complaint: Here today for recurrent BV. Found on pap. Has a vaginal discharge. Does not thinkis normal Having sx of dyspareunia & post coital burning. Feels having breakthrough bleeding Symptoms: (0=None; 10=Severe) Dyspareunia: Entry: At times Will feel discomfort Deep Pain:0 Burning after intercourse: At times can feel burning, never feels good Vaginal discharge: yellow thick Not normal Vulvar burnin Vulvar itchin Clitoral pain: 0 Vulvar pain: 0 Urinary symptoms: external dysuria post coital Duration of symptom(s): 4 months Association with any major life or gynecological event/illness? no Previous diagnoses: BV Previous biopsies: No Previous treatment(s): Metrogel x 2 Current treatment(s): no Symptoms prevent activities? Yes sex History of STI: No Negative for HPV Partner with symptoms of irritation, itching, burning or discharge? No Hormone therapy or OCP use? yes, OCP's; Length of use: 10 + years Psychosocial aspects: Fear of having to live with chronic pain? No Loss of previously satisfying sex life? Yes Relationship problems with partner? Yes Isolation due to private nature of problem?Yes Able to discuss the problem with family members or friends? No Fear of possible cancer? Yes Emotional, south, frustrated and/or angry? Yes Fear of haivng a disease that you may give to others? No Antidepressant/antianxiolytic use? No Instruction Vulvar Care Guidelines Vulvar Examination: See Photo Documentation/annotated image-if photo taken, verbal consent obtained Muscle Tone: L.A. Bilateral NL O.I. Bilateral NL Kegals: 3 Cultures: unable due to bleeding Biopsy: Not done Impression/Plan: 1. Vulvitis/Vaginal discharge/ dyspareunia Implement Vulvar Care Guidelines fluconazole 200 mg tablet, one by mouth every other day for three doses. 2. Breakthrough bleeding on OCP:'s Change to Sprinte[facility] needs to see fire protection equipment technician for follow up & to establish care Time - The total face to face encounter time was 50 minutes. A significant portion (>50%) time was spent face to face in counseling the patient about the Vulvar Care Guidelines, BTB and discussing the treatment plan as outlined in instructions. Her questions were answered to her satisfaction. Written in structions were provided. The patients medications, allergies, medical history, surgical history, family history, and social history were reviewed and changes are amended directly in the appropriate areas of the electronic medical record and electronically signed. I also spent 10 minutes of time on the day of the visit preparing to see the patient and completingthe visit documentation, including some or all of the following: ? obtaining and/or reviewing separately obtained history (as available from electronic record, careeverywhere, provided records from the patient if available) ? counseling and educating the patient/family/caregiver ? ordering medications, tests, or procedures as needed ? referring and communicating with other health director of career resources via faxed communication ? documenting clinical information in the electronic health record ? independently interpreting results and communicating results to the patient/family/caregiver as needed ? care coordination as needed Total time 60 minutes New: 30 min (97451) 45 min (09731) 60 min (44629) Established 20 min (62436) 30 min (41293) 40 min (93073) [facility] documented in this encounter Plan of Treatment Not on file documented as of this encounter Visit Diagnoses Diagnosis Chronic vulvitis- Primary Vaginitis and vulvovaginitis, unspecified Vaginal discharge Leukorrhea, not specified as infective Dyspareunia in female Breakthrough bleeding on control pills Metrorrhagia documented in this encounter Care Teams Upper Inspector Relationship Specialty Start Date End Date Karson Payne MD [address] [phone] PCP - General 07/12/21 documented as of this encounter
--- OUTSIDE RECORDS SUMMARY | 2024-06-08 07:41 | XMS_ITS | Patient Health Summary ---
Author Organization [facility] Address [address] [facility] [place] [address] Care Team Providers Care Visual Developer Name Role Phone Karson Payne MD Primary Care Provider [phone]- [phone] [facility],non-owned Affiliates and Associated Physician Practices is amultiple site organization consisting of ambulatory clinics and hospital sitesin [place], [place], [place] and [place]. This disclosure is being madepursuant to the Care Everywhere program and may not contain all information available regarding this patient. Last updated 18.[facility] Allergies No known active allergies Medications * Be aware that medications may not be up to date on this document. Alwaysverify current medications with the patient. * inFLIXimab-dyyb (INFLECTRA IV) * Levocetirizine Dihydrochloride (XYZAL PO) Take by mouth once daily * montelukast (SINGULAIR) 10 MG tablet Take 1 (one) tablet by mouth at bedtime * azaTHIOprine (IMURAN) 50 MG tablet Take 1 (one) tablet by mouth once daily * cetirizine (ZYRTEC) 10 MG tablet Take 1 (one) tablet by mouth once daily * norgestimate-ethinyl estradiol (Estarylla) 0.25-35 MG-MCG tablet(Started 04/17/2023) Take 1 (one) tablet by mouth once daily appointment 04/17/23 to discuss additional refills. 3 refills by 04/16/2024 Active Problems Problem Noted Date Diagnosed Date Well woman exam with routine gynecological exam 04/11/2022 Hair loss 12/28/2020 Ulcerative colitis 07/24/2020 Irritable bowel syndrome with diarrhea Seizure disorder 11/26/2018 Social History Tobacco Use [...] Comments Blood Pressure 124/80 04/17/2023 4:12 PM BOTTOM BUFFER Pulse 116 04/11/2022 3:07 PM BOTTOM BUFFER Temperature 36.5 ??C (97.7 ??F) 06/30/2016 2:30 PM CS T Respiratory Rate 18 06/30/2016 2:30 PM BOTTOM BUFFER Oxygen Saturation 97% 04/11/2022 3:07 PM BOTTOM BUFFER Inhaled Oxygen Concentration - - Weight 146.1 kg (322 lb) 04/17/2023 4:12 PM BOTTOM BUFFER Height 180.3 cm (5' 11 ) 04/17/2023 4:12 PM BOTTOM BUFFER Body Mass Index 44.91 04/17/2023 4:12 PM BOTTOM BUFFER Procedures * IMMUNOFLUORESCENT STUDY DERM(Performed 03/28/2023) * DERMATOPATHOLOGY(Performed 03/28/2023) * PAP IMAGE-GUIDED RFLX HPV(Performed 04/11/2022) Performed for Well woman exam with routine gynecological exam * WET PREP - POINT OF CARE (AMB) [facility](Performed 04/11/2022) Performed for Well woman exam with routine gynecological exam * C. TRACHOMATIS + N. GONORRHOEAE + TRICH JULISSA(Performed 10/29/2021) Performed for Irregular menstrual bleeding, Screen for STD (sexually transmitted disease) * CULTURE YEAST WITH DIRECT FLUORESCENT ADBIRAHMAN(Performed 10/29/2021) Performed for Screen for STD (sexually transmitted disease), Vaginitis and vulvovaginitis * FUNGUS ABDIRAHMAN - POINT OF CARE (AMB) [facility](Performed 10/29/2021) Performed for Screen for STD (sexually transmitted disease), Vaginitis and vulvovaginitis * WET PREP - POINT OF CARE (AMB) [facility](Performed 10/29/2021) Performed for Screen for STD (sexually transmitted disease), Vaginitis and vulvovaginitis * WET PREP - POINT OF CARE (AMB) [facility](Performed 09/27/2021) Performed for Trichomoniasis * PH FLUID - POCT (AMB) [facility](Performed 09/27/2021) Performed for Trichomoniasis * FUNGUS ABDIRAHMAN - POINT OF CARE (AMB) [facility](Performed 09/27/2021) Performed for Trichomoniasis * INFLUENZA A+B - POINT OF CARE (AMB)(Performed 06/30/2016) Performed for Viral upper respiratory illness * SKIN TEST PPD - POINT OF CARE(Performed 02/29/2016) Performed for Screening examination for pulmonary tuberculosis Results * IMMUNOFLUORESCENT STUDY DERM (03/28/2023 12:00 AM CDT) Case Report Dermatopathol ogy Report ? Case: [id number] ? Authorizing Provider: ??Luis Harris MD ?Collected: ? 03/28/2023 12:00 AM ? Ordering Location: ? [facility] ? Received: ?03/29/2023 04:58 PM ? Pathologist: ? Kasie Shine MD ? Specimen: ?Skin, right ant dorsal foot ? 3 2:38 PM [facility] Final Diagnosis Specimen A. SKIN, right ant dorsal foot: NO IMMUNOPATHOLO GICAL ABNORMALITY (L98.9) (see fixed tissue results) 3 2:38 PM [facility] Direct Immunofluorescence Report - Specimen A Specimen A IgA IgM IgG C3 CollV Fibrinogen Epidermis Negative Rare colloid Negative Negative Negative Negative Basement Membrane Negative Negative Negative Negative 2+ Negative Vessels Negative Negative Negative Negative 2+ Negative Interstitium Negative Negative Negative Negative Negative Non specific 3 2:38 PM [facility] DERMATOPATHOLOGY LABORATORY Clinical History R/O Atypical 3 2:38 PM [facility] Gross Description Specimen A: Received is one Matthew's media filled container labeled with the patient's name and designated right ant dorsal foot. The specimen consists of a shave biopsy measuring 6x4x1 mm. The specimen is submitted in whole for direct immunofluores cence testing. 3 2:38 PM [facility] Microscopic Description Specimen A. SKIN, right ant dorsal foot: Controls were run in parallel. Staining is negative with IgA, IgM, IgG, and C3. Collagen IV stains the basement membrane zone and vessels. Fibrinogen shows non-specific staining. A hematoxylin and eosin stained frozen section shows no significant inflammation. See fixed tissue results. 3 2:38 PM [facility] Disclaimer An external and internal positive and negative controls are appropriate for the histochemical , immunohistoch emical and immunofluores cence stain(s) in this case (if any), except where stated explicitly. The performance characteristi cs of the stain(s) cited in this report were developed and its performance characteristi c determined by the Dermatopathol ogy Laboratory at [facility], directed by Dr. Ruddy Goodwin. These tests need not be, and therefore are not, approved by the [place] Food and Drug Administratio n. The tests are used for clinical purposes. Billing Codes Specimen Charges Stain Charges 46013 40445 82235 25655 19848 20393 1 1 1 1 1 1 3 2:38 PM [facility] Embedded Images 3 2:38 PM [facility]T DERMATOPATHOLOGY LABORATORY Pathology/Cytolog y TISSUE SPECIMEN FROM SKIN / Unknown 03/28/2023 03/29/2023 4:58 PM CDT Luis Harris MD LAB - PATHOLOGY/CYTO LOGY ORDERABLES Performing Organization Address [facility]/State/ZIP Co de Phone Number DERMATOPATHOLOGY LABORATORY [facility] - Department of Dermatology [facility] Medicine [address] [place] [address] [address] [phone] * DERMATOPATHOLOGY (03/28/2023 12:00 AM CDT) Case Report Dermatopathology Report ? Case: [id number] ? Authorizing Provider: ??Luis Harris MD ?Collected: ? 03/28/2023 12:00 AM ? Ordering Location: ? [facility] ? Received: ?03/29/2023 04:56 PM ? Pathologist: ? Kasie Shine MD ? Specimen: ?Skin, right lateral ankle ? 3 5:09 PM [facility] DERMATOPATHOLOGY [facility]ORATORY Final Diagnosis Specimen A. SKIN, right lateral ankle: EPIDERMAL ACANTHOSIS WITH MIXED DERMAL INFLAMMATORY INFILTRATE (L92.3) (see microscopic description and comment) 3 5:09 PM [facility] DERMATOPATHOLOGY [facility]ORATORY Clinical History R/O Atypical 3 5:09 PM [facility] DERMATOPATHOLOGY [facility]OR[facility] Gross Description Specimen A: Received is one formalin filled container labeled with the patient's name and designated right lateral ankle. The specimen consists of a shave biopsy measuring 7x6x2 mm. Jar 0. 3 5:09 PM [facility] DERMATOPATHOLOGY LABORATORY Microscopic Description Specimen A. SKIN, [...] concurs with the diagnosis. 3 5:09 PM [facility] DERMATOPATHOLOGY [facility]ORATORY Disclaimer An external and internal positive and negative controls are appropriate for the histochemical, immunohistochemical and immunofluorescence stain(s) in this case (if any), except where stated explicitly. The performance characteristics of the stain(s) cited in this report were developed and its performance characteristic determined by the Dermatopathology Laboratory at [facility], directed by Dr. Ruddy Goodwin. These tests need not be, and therefore are not, approved by the [place] Food and Drug Administration. The tests are used for clinical purposes. Billing Codes Specimen Charges Stain Charges 71732 1 62500 90117 48272 1 1 1 3 5:09 PM [facility] DERMATOPATHOLOGY [facility]ORATORY Embedded Images 3 5:09 PM [facility] D[facility]MAT[facility]ATH[facility]Y [facility] Pathology/Cytolog y TISSUE SPECIMEN FROM SKIN / Unknown 03/28/2023 03/29/2023 4:56 PM CDT Luis Harris MD LAB - PATHOLOGY/CYTO LOGY ORDERABLES Performing Organization Address [facility]/State/ZIP Co de Phone Number DERMATOPATHOLOGY LABORATORY [facility] - Department of Dermatology [address], [address] [phone] * PAP IMAGE-GUIDED RFLX HPV (04/11/2022 3:38 PM BOTTOM BUFFER) Case Report Gynecologic Cytology Report ? Case: [id number] ? Authorizing Provider: ??Alexus Díaz MD ?Collected: ? 04/11/2022 03:38 PM ? Ordering Location: ? [facility] ? Received: ?04/12/2022 12:15 PM ? Gynecology and Women's ? Health ? First Screen: ?Scott Coronel ? Specimen: ?THINPREP - IMAGE GUIDED, Cervix/Endocervix ? 04/13/2022 8:05 AM [facility] LMP 03/29/22 04/13/2022 8:05 AM [facility] Menstrual Status Oral Contraceptives 04/13/2022 8:05 AM [facility] Specimen Adequacy Satisfactory for evaluation, endocervical/trans formation zone component present. 04/13/2022 8:05 AM [facility] Categorization Negative for intraepithelial lesion or malignancy. 04/13/2022 8:05 AM [facility] Interpretation PARKING LOT ATTENDANT AND CASHIER Negative for intraepithelial lesion or malignancy. 04/13/2022 8:05 AM [facility] Pap Footnote The Pap Smear is a screening test. False positive and false negative results occur. Negative results do not preclude abnormalities, thus clinical correlation is required. This specimen was evaluated by the ThinPrep Imaging System along with an additional manual rescreening by a program checker and/or pathologist. 04/13/2022 8:05 AM [facility] PATH[facility] Pathology/Cytolo gy MISCELLANEOUS SAMPLES / Unknown 04/11/2022 3:38 PM BOTTOM BUFFER 04/12/2022 12:15 PM BOTTOM BUFFER Alexus Díaz MD LAB - PATHOLOGY/CY TOLOGY ORDERABLES [facility] [address] [facility] [place] [address], [facility] [phone] * WET PREP - POINT OF CARE (AMB) [facility] (04/11/2022) Only the most recent of3 resultswithin the time period is included. pH Wet Prep 4.5 Yeast Wet Prep absent Trichomonas Wet Prep Absent Bacteria Wet Prep absent Whiff Test negative BODY FLUID SPECIMEN / Unknown 04/11/2022 Alexus Díaz MD LAB - POINT OF CAR E ORDERABLES * C. TRACHOMATIS + N. GONORRHOEAE + TRICH JULISSA (10/29/2021 3:33 PM CDT) Chlamydia Trachomatis JULISSA Not detected Not detected 11/03/2021 4:18 PM CDT [facility] Neisseria Gonorrhoeae JULISSA Not detected Not detected 11/03/2021 4:18 PM CDT [facility] PATH[facility] Trichomonas Vaginalis JULISSA Not detected Not detected 11/03/2021 4:18 PM CDT [facility] Microbiology MISCELLANEOUS SAMPLES / Unknown Collection / Unknown 10/29/2021 3:33 PM CDT 11/01/2021 11:09 AM CDT Narrative [facility] PATH[facility] - 11/03/2021 4:18 PM CDT [...] Gen-Probe Aptima Trichomonas vaginalis Assay on the [place] system and rectal and pharyngeal swabs with Gen-Probe Aptima combo 2 were determined by the Molecular Diagnostics Laboratory at [facility]. ??They have not been cleared or approved [...] Kelsie Mitchell MD LAB - MICROBIOLOGY ORDERABLES [facility] [address] [place], [place] [address] [phone] * CULTURE YEAST WITH DIRECT FLUORESCENT ABDIRAHMAN (10/29/2021 3:32 PM CDT) Smear [facility] Comment: ??CULTURE, YEAST, W/DIRECT FLUORESCENT ABDIRAHMAN ?Micro Number: ?[id number] ??Test Status: ? Final ??Specimen Source: ?? Genital ??Specimen Quality: ??Adequate ??Smear: ? No yeast seen ??Result: ?No yeast isolated Test Performed at: [facility] ??[id number] GLEN KLEIN MD Microbiology SPECIMEN FROM GENITAL SYSTEM / Unknown 10/29/2021 3:32 PM CDT 10/30/2021 12:01 AM CDT Kelsie Mitchell MD LAB - MICROBIOLOGY ORDERABLES [facility] [address] [place] [id number] * FUNGUS ABDIRAHMAN - POINT OF CARE (AMB) [facility] (10/29/2021) Only the most recent of2 resultswithin the time period is included. ABDIRAHMAN Prep No Fluid BODY FLUID SPECIMEN / Unknown 10/29/2021 Kelsie Mitchell MD LAB - POINT OF CARE ORDERABLES * PH FLUID - POCT (AMB) [facility] (09/27/2021) pH Vaginal 5.0 Fluid ENTIRE VAGINA / Unknown 09/27/2021 Raysa Asher APRN-ANESTHESIOLOGIST AND CRITICAL CARE LAB - POINT OF CARE ORDERABLES * INFLUENZA A+B - POINT OF CARE (AMB) (06/30/2016) Influenza A Antigen Rapid Negative Negative Influenza B Antigen Rapid Negative Negative Influenza Internal Control positive NEGATIVE - POSITIVE Influenza Lot Number [id number] Influenza Expiration Date 12/07/2017 Other NASOPHARYNGEAL SWAB / Unknown 06/30/2016 Wanda Helton PRESS SET UP PERSON-ANESTHESIOLOGIST AND CRITICAL CARE LAB - POINT O F CARE ORDERABLES * SKIN TEST PPD - POINT OF CARE (02/29/2016 3:30 PM CDT) PPD Other (qualifier value) MISCELLANEOUS SAMPLES / Unknown 02/29/2016 3:30 PM CDT Lou Graham PRESS SET UP PERSON-ANESTHESIOLOGIST AND CRITICAL CARE LAB - POINT OF CARE ORDERABLES Care Teams Visual Developer Relationship Specialty Start Date End Date Karson Payne MD [address] [phone] PCP - General 07/12/21
--- OUTSIDE RECORDS SUMMARY | 2024-06-08 07:42 | XMS_ITS | Encounter Summary ---
Author Organization [facility] Address [address] [place] [address]. [place] [address] [place] [address] Care Team Providers Care Clay Thrower Name Role Phone Charla Campos PA-C Primary Care Provider +1- [phone] Encounter Details Date Type Department Care Team (Late st Contact Info) Description 12/26/2023 [employer] Message Enc [facility] Multispecialty Care - [address], [address] [place] [phone] [employer], [facility] Provider Appointment Social History Tobacco Use Types Packs/Day Years [...] Average Number of Drinks 1 or 2 12/09/2 019 Frequency of Binge Drinking Not on [...] Description 08/21/2024 4:00 PM CDT Office Visit [facility] Family Medicine - [address] [phone] Charla Campos PA-C [address] [place] [address] documented as of this encounter Visit Diagnoses Not on filedocumented in this encounter Additional Health Concerns Assessment Noted Time PHQ-9 Depression Total Score: 11 024 3:20 PM CDT documented as of this encounter Care Teams Clay Thrower Relationship Specialty Start Date End Date Charla Campos PA-C [address] [place] [address] PCP - General PHYSICIAN AUTOMOTIVE SOFTWARE ENGINEER 08/22/23 documented as of this encounter
--- OUTSIDE RECORDS SUMMARY | 2024-06-08 07:42 | XMS_ITS | Encounter Summary ---
Author Organization [facility] Address [address] [place] [address]. [place] [address] [place] [address] Care Team Providers Care Drafter Refrigeration Name Role Phone Charla Campos PA-C Primary Care Provider +1- [phone] Encounter Details Date Type Department Care Team (Late st Contact Info) Description 02/19/2024 Orders Only [facility] Medical Group Multispecialty Care - [facility] [address] [facility], [address] [place] [phone] Anita Reyna MA Social History Tobacco Use Types Packs/Day Years [...] Description 08/21/2024 4:00 PM CDT Office Visit [facility] Medical [facility] Family Medicine - [address] [address] Charla Campos PA-C [address] [place] [address] documented as of this encounter Visit Diagnoses Diagnosis Ulcerative pancolitis without complication ([facility]/HCC [facility]) documented in this encounter Additional Health Concerns Assessment Noted Time PHQ-9 Depression Total Score: 11 024 3:20 PM CDT documented as of this encounter Care Teams Drafter Refrigeration Relationship Specialty Start Date End Date Charla Campos PA-C [address] [place] [address] PCP - General PHYSICIAN FACILITY SALES AND ADMIN 08/22/23 documented as of this encounter
--- OUTSIDE RECORDS SUMMARY | 2024-06-08 07:42 | XMS_ITS | Encounter Summary ---
Author Organization [facility] Address [address] [place] [address]. [place] [address] [place] [address] Care Team Providers Care Hob Machine Operator Name Role Phone Charla Campos PA-C Primary Care Provider +1- [phone] Encounter Details Date Type Department Care Team (Latest Contact Info) Description 01/20/2024 11:56 AM CDT - 01/20/2024 11:59 PM T Hospital Encounter [facility] [address] [place] [address] Maria T Serrano NP [address] [facility] [address] [place], [place] [address] Discharge Disposition: Home or Self Care (Routine Discharge) Social History Tobacco Use Types Packs/Day Years [...] on file documented as of this encounter Medications at Time of Discharge azithromycin (ZITHROMAX) 500 mg tablet Take 1 tablet (500 mg total) by mouth daily. 4 ethambutol (MYAMBUTOL) 400 MG tablet Take 4 tablets (1,600 mg total) by mouth daily. 4 inFLIXimab-dyyb 100 MG injectionIndicati ons:Ulcerative pancolitis without complication (CMS/HCC HHS/HCC) Inject 70 mLs (700 mg total) into the vein see administration instructions. 5 mg/kg per dose IV every 8 weeks for 12 months. 7 each 5 2 Na sulfate-K sulfate-Mg sulfate (SUPREP BOWEL PREP KIT) 17.5-3.13-1.6 GM/177ML SolutionIndicatio ns:Ulcerative pancolitis without complication (CMS/HCC HHS/HCC) Take 177 mLs by mouth every 12 (twelve) hours. Per GI instructions 354 mL 4 azaTHIOprine (IMURAN) 50 MG tabletIndications :Ulcerative pancolitis without complication (CMS/HCC HHS/HCC) take one (1) tablet by mouth daily 90 tablet 4 02/19/20 24 dicyclomine (BENTYL) 10 MG capsuleIndication s:Ulcerative pancolitis without complication (CMS/HCC HHS/HCC),Diarrhea , unspecified type Take 1 capsule (10 mg total) by mouth 4 (four) times daily before meals and nightly. 120 capsule 1 4 03/11/20 24 montelukast (SINGULAIR) 10 MG tabletIndications :Chronic rhinitis Take 1 tablet (10 mg total) by mouth nightly at bedtime. at bedtime. 90 tablet 1 4 02/19/20 24 SPRINTEC 28 0.25-35 MG-MCG tablet Take 1 tablet by mouth daily. 3 05/30/19 25 documented as of this encounter Plan of Treatment Upcoming Encounters Date Type Department Care Team (Late st Contact Info) Description 08/21/2024 4:00 PM CDT Office Visit [facility] Medical [facility] Family Medicine - Normal [address] [place] [address] Charla Campos PA-C [address] [place] [address] documented as of this encounter Procedures Procedure Name Priority Date/Time Associated Diagnosis Comments CALPROTECTIN FECAL Routine 01/20/2024 10 :30 AM CDT Ulcerative pancolitis without complication ([facility]/HCC [facility]) documented in this encounter Results * CALPROTECTIN FECAL (01/20/2024 10:30 AM CDT) CALPROTECTIN (STOOL) 5 mcg/g 01/28/2024 9:26 PM CDT [employer] ROBERT GELLER Comment: ? Reference Range: ? <50 ? Normal ? 50-120 ??Borderline ? >120 ?Elevated Calprotectin in Crohn's disease and ulcerative colitis can be five to several thousand times above the reference population (50 mcg/g or less). Levels are usually 50 mcg/g or less in healthy patients and with irritable bowel syndrome. Repeat testing in 4-6 weeks is suggested for borderline values. Test performed by [employer] ? [id number], ? [place] [address] ? Business Account Leader: Elyse Canela MD,PHD,SANDRA Test Reported by [facility] 7 [facility], [address] [place] [address] José Antonio Mart M.D., Ph.D., Director of Laboratories , [facility] [id number] STOOL SPECIMEN / Unknown 01/20/2024 10:30 AM CDT Maria T Serrano HOUSING MANAGER BODY FLUIDS AND STOOLS CHANTEL MARK Final Result [employer] , [place] [phone] documented in this encounter Visit Diagnoses Diagnosis Ulcerative pancolitis without complication (CMS/HCC HHS/HCC) documented in this encounter Additional Health Concerns Assessment Noted Time PHQ-9 Depression Total Score: 11 024 3:20 PM CDT documented as of this encounter Care Teams Hob Machine Operator Relationship Specialty Start Date End Date Charla Campos PA-C [address] [place] [address] PCP - General PHYSICIAN DIRECTOR FOR [employer] 08/22/23 documented as of this encounter
--- OUTSIDE RECORDS SUMMARY | 2024-06-08 07:42 | XMS_ITS | Encounter Summary ---
Author Organization [facility] Address [address] [place] [address]. [place] [address] [place] [address] Care Team Providers Care Structural Metal Fabricator Apprentice Name Role Phone Charla Campos PA-C Primary Care Provider +1- [phone] Reason for Visit * Reason Comments Follow Up Ulcerative Colitis Encounter Details Date Type Department Care Team (Latest Contact Info) Description 01/12/2024 11:40 AM CDT Office Visit [facility] Multispecialty Care - [facility] [address] [facility], [address] [place] [address] Maria T Serrano NP 3 [facility] [address] [place] [address] Follow Up; Ulcerative Colitis Social History Tobacco Use Types Packs/Day Years [...] 01/12/2024 11:52 AM C DT Respiratory Rate - - Oxygen Saturation 98% 01/12/2024 11:52 AM CDT Inhaled Oxygen Concentration - - Weight 151 kg (332 lb 14.4 oz) 01/12/2024 11:52 AM CDT Height 179.1 cm (5' 10.5 ) 01/12/2024 11:52 AM C DT Body Mass Index 47.09 01/12/2024 11:52 AM CDT documented in this encounter Progress Notes * Maria T Serrano, JORI - 01/12/2024 11:40 AM CDT Images from the original note were not included. GASTROENTEROLOGY CONSULT 01/12/2024 12:07 PM Reason for Visit: Follow Up and Ulcerative Colitis History of Present Illness: Paige Zavaleta is a 28-year-old female who presents today for annual Crohn's f/u. Has a h/o Ulcerative Colitis currently managed with azathioprine 50 mg daily and Infiximab 5 mg/kg IV every 8 weeks. Has failed Humira in the past. Last colonoscopy was in 2020 which noted severe pancolitis, however symptoms have been controlled on current management. Reports diarrhea for the past two months. Has multiple BM daily, stool is mostly is watery and yellow. She does have some formed stool as well, stool is brown when formed. Denies abdominal pain, diarrhea or BRBPR. Has been taking both Ethambutol 1600 mg daily and azithromycin 500 mg daily for past 8 months for mycobacterium on both lower legs. Patient anticipates d/c antibiotics this month. Recent CBC and CMP were unremarkable, TB negative. Appetite appropriate. No unexplained weight loss. No hx of hepatitis infection. No prior blood transfusions NSAID/Anticoagulant use: None Past Medical History: Diagnosis Date Anxiety Unknown Depression Unknown Seizure disorder ([facility]) 05/06/2019 Seizures ([facility]) 2020 Ulcerative colitis ([facility]) 06/28/2019 Dr. Omar Johns moderate to severe reed ulcerative colitis Past Surgical History: Procedure Laterality Date COLONOSCOPY N/A 06/28/2019 COLONOSCOPY WITH BIOPSIES performed by Omar Johns MD at [facility] OR ulcerative pancolitis COLONOSCOPY N/A 08/24/2020 COLONOSCOPY WITH COLON BIOPSY VIA LARGE COLD FORCEP AND STOOL SAMPLE FOR CDIFF performed by Omar Hawk MD at [facility] GI TONSILLECTOMY Family History Problem Relation Name Age of Onset Cancer Mother ROSALVA Depression Mother ROSALVA Mental Health Mother ROSALVA Miscarriages / Stillbirths Mother ROSALVA Hypertension Father Chaim Social History Tobacco Use Smoking status: Never Smokeless tobacco: Never Vaping Use Vaping status: Never Used Substance Use Topics Alcohol use: Not Currently Alcohol/week: 3.0 standard drinks of alcohol Types: 3 Standard drinks or equivalent per week Comment: occasional Drug use: Never Outpatient Medications Marked as Taking for the 01/12/24 encounter (Office Visit) with Maria T Serrano NP Medication Sig Dispense Refill azaTHIOprine (IMURAN) 50 MG tablet take one (1) tablet by mouth daily 90 tablet 0 azithromycin (ZITHROMAX) 500 mg tablet Take 1 tablet (500 mg total) by mouth daily. ethambutol (MYAMBUTOL) 400 MG tablet Take 4 tablets (1,600 mg total) by mouth daily. inFLIXimab-dyyb 100 MG injection Inject 70 mLs (700 mg total) into the vein see administration instructions. 5 mg/kg per dose IV every 8 weeks for 12 months. 7 each 5 montelukast (SINGULAIR) 10 MG tablet Take 1 tablet (10 mg total) by mouth nightly at bedtime. at bedtime. 90 tablet 1 SPRINTEC 28 0.25-35 MG-MCG tablet Take 1 tablet by mouth daily. Review of patient's allergies indicates: No Known Allergies REVIEW OF SYSTEMS: Review of Systems Constitutional: Negative for fatigue and fever. Respiratory: Negative for shortness of breath. Cardiovascular: Negative for leg swelling. Gastrointestinal: Per HPI Musculoskeletal: Negative for joint swelling. Skin: Negative for rash. Neurological: Negative for dizziness and headaches. Psychiatric/Behavioral: The patient is not nervous/anxious. PHYSICAL EXAM: Filed Vitals: 01/12/24 1152 BP: 125/75 Pulse: 85 Temp: 98.2 ??F (36.8 ??C) TempSrc: Temporal SpO2: 98% Weight: (!) 151 kg (332 lb 14.4 oz) Height: 1.791 m (5' 10.5 ) Wt Readings from Last 1 Encounters: 01/12/24 (!) 151 kg (332 lb 14.4 oz) Physical Exam Vitals reviewed. Constitutional: Appearance: Normal appearance. Cardiovascular: Rate and Rhythm: Normal rate and regular rhythm. Pulmonary: Breath sounds: Normal breath sounds. No wheezing. Abdominal: General: Bowel sounds are normal. There is no distension. Palpations: Abdomen is soft. There is no mass. Tenderness: There is no abdominal tenderness. There is no guarding or rebound. Hernia: No hernia is present. Musculoskeletal: Right lower leg: No edema. Left lower leg: No edema. Skin: General: Skin is warm and dry. Findings: No rash. Neurological: Mental Status: She is alert and oriented to person, place, and time. Psychiatric: Mood and Affect: Mood normal. Behavior: Behavior normal. Labs: Lab Results Component Value Date WBC 8.8 12/10/2022 RBC 5.21 12/10/2022 HGB 15.2 12/10/2022 HCT 47.2 12/10/2022 RDW 13.0 12/10/2022 PLT 336 12/10/2022 NA 139 12/10/2022 K 4.3 12/10/2022 CL 109 (H) 12/10/2022 AGAP 6.1 12/10/2022 GLU 101 (H) 12/10/2022 BUN 10 12/10/2022 CR 0.81 12/10/2022 GFRNON 100 12/29/2020 GFR 122 12/29/2020 CA 9.4 12/10/2022 ALB 3.5 12/10/2022 ALT 13 (L) 12/10/2022 AST 15 12/10/2022 ALKP 59 12/10/2022 Imaging: None Endoscopies: 08/24/[address] Johns Severe active colitis with possible c. Difficile colitis. Empirically prescribed Vancomycin 06/28/[address] Johns Diffuse moderate to severe pancolitis likely ulcerative colitis. Initiated on prednisone and Humiria Assessment 1. Ulcerative pancolitis without complication ([facility]HCC [facility]) Recommendations/Plan: Schedule Colonoscopy for surveillance of UC Suprep split prep ordered UC had been well controlled with current medication management. Recent bowel irritability could be from extensive antibiotic therapy which should be completed within the next week. Fecal calprotectinordered to assess for inflammation. Will confirm with pathology if UC is controlled or needs to adjust management Dicyclomine 10 mg up to QID as needed for abdominal discomfort Advised patient start a daily probiotic to promote bowel health due to recent antibiotics Discussed infection prevention, especially during cold/flu season such as maintaining good hand hygiene and wearing a mask in crowded areas if there is a flu or Covid outbreak. Recommend vaccine compliance All questions answered F/U annually or as needed Risks/Benefits/Options: Risks, benefits and alternatives of the procedure(s) were discussed which can include but are not limited to: discomfort, missing lesions, allergic or adverse reaction to the sedation, perforation ofthe bowel or upper GI tract which may require hospitalization and surgery, bleeding, infection, aspiration. All questions were answered, patient is in agreement to proceed as planned. Orders placed this encounter: No orders of the defined types were placed in this encounter. Maria T Serrano NP Gastroenterology documented in this encounter Plan of Treatment Upcoming Encounters Date Type Department Care Team (Late st Contact Info) Description 08/21/2024 4:00 PM CDT Office Visit [facility] Medical Group Family Medicine - [place] [address] [place] [address] Charla Campos PA-C [address] [place] [address] [phone] (work) documented as of this encounter Results * CALPROTECTIN FECAL (01/20/2024 10:30 AM CDT) CALPROTECTIN (STOOL) 5 mcg/g 01/28/2024 9:26 PM CDT [employer] ROBERT GELLER Comment: ? Reference Range: ? [...] suggested for borderline values. Test performed by [employer] ? [address] [facility], ? [place] [address] ? Sales And Retail Management Recruiter: Elyse Canela MD,PHD,SANDRA Test Reported by Aryan Schmitt, [employer] [place], [address] [place], [place] José Antonio Mart M.D., Ph.D., Director of Laboratories , [place] [id number] STOOL SPECIMEN / Unknown 01/20/2024 10:30 AM CDT Maria T Serrano [employer] STOOL[employer] CHANTEL MARK Final Result MARIANA [place] [address] [place] [address], [place] [phone] documented in this encounter Visit Diagnoses Diagnosis Ulcerative pancolitis without complication (CMS/HCC HHS/HCC)- Primary Diarrhea, unspecified type documented in this encounter Additional Health Concerns Assessment Noted Time PHQ-9 Depression Total Score: 11 024 3:20 PM CDT documented as of this encounter Care Teams Structural Metal Fabricator Apprentice Relationship Specialty Start Date End Date Charla Campos PA-C [address] [place] [address] PCP - General PHYSICIAN DIRECTOR EMPLOYEE COMMUNICATIONS 08/22/23 documented as of this encounter
--- OUTSIDE RECORDS SUMMARY | 2024-06-08 07:42 | XMS_ITS | Encounter Summary ---
Author Organization [facility] Address [address] [place] [address]. [place] [address] [place] [address] Care Team Providers Care Docking Saw Operator Name Role Phone Charla Campos PA-C Primary Care Provider +1- [phone] Reason for Visit * Reason Onset Date Comments Appointment Request 12/26/2023 Encounter Details Date Type Department Care Team (Late st Contact Info) Description 12/26/2023 Telephone [facility] Medical Group Multispecialty Care - [facility] [address] [facility], [address] [place] [address] Maria T Serrano NP 3 [facility] [address] [place] [address] Appointment Request Social History Tobacco Use Types Packs/Day [...] as of this encounter Progress Notes * Alia Gambino - 12/26/2023 1:17 PM CDTSummary: Pt called re: Darius Cotag. She updated her phone#. She did confirm she can make the requested location change. As long as it was the dame date and time. Thank you * Anita Reyna MA - 12/26/2023 12:45 PM CDT Not able to leave voice mail (pt can come to [facility] office 01/11 same time or reschedule) provider will not be in office 01/11 documented in this encounter Plan of Treatment Upcoming Encounters Date Type Department Care Team (Late st Contact Info) Description 08/21/2024 4:00 PM CDT Office Visit [facility] Medical Group Family Medicine - [place] [address] [place] [phone] Charla Campos PA-C [address] [place] [address] documented as of this encounter Visit Diagnoses Not on filedocumented in this encounter Additional Health Concerns Assessment Noted Time PHQ-9 Depression Total Score: 11 024 3:20 PM CDT documented as of this encounter Care Teams Docking Saw Operator Relationship Specialty Start Date End Date Charla Campos PA-C [address] [place] [address] PCP - General PHYSICIAN DIRECTOR OF HOUSING 08/22/23 documented as of this encounter
--- OUTSIDE RECORDS SUMMARY | 2024-06-08 07:42 | XMS_ITS | Encounter Summary ---
Author Organization [facility] Address [address] [place] [address]. [place] [address] [place] [address] Care Team Providers Care [employer] Safety Program Coordinator Name Role Phone Charla Campos PA-C Primary Care Provider +1- [phone] Reason for Visit * Reason Onset Date Comments Prior Authorization 03/07/2024 Colonoscopy- [id number] Encounter Details Date Type Department Care Team (Late st Contact Info) Description 03/07/2024 Telephone [facility] Medical Group Multispecialty Care - [facility] [address] [facility] [address] [place] [address] Omar Johns MD 3 [facility] [address] [place] [address] Prior Authorization (Colonoscopy-[id number]) Social History Tobacco Use Types Packs/Day Years [...] as of this encounter Progress Notes * Karla Plummer MA - 03/07/2024 10:44 AM CDT Images from the original note were not included. * Karla Plummer MA - 03/07/2024 10:42 AM CDT Submit Clinical Request Your case has been Approved. Physician Name: Dr. OMAR JOHNS Contact: Karla Petty Physician Address: [address] [place] [address] Patient Name: PAIGE Petty CELESTINE Insurance Carrier: [facility] Site Name: [facility] Site ID: [id number] Site Address: [address] [place] [id number] Primary Diagnosis Code: K51.00 Description: Ulcerative (chronic) pancolitis without complications Secondary Diagnosis Code: Description: CPT Code GECOL Description: Colonoscopy Authorization Number: [id number] Review Date: 03/07/2024 11:41:23 AM Expiration Date: 09/03/2024 Status: Your case has been Approved. documented in this encounter Plan of Treatment Upcoming Encounters Date Type Department Care Team (Late st Contact Info) Description 08/21/2024 4:00 PM CDT Office Visit [facility] Medical Group Family Medicine - [place] [phone] Charla Campos PA-C [address] [place] [address] documented as of this encounter Visit Diagnoses Not on filedocumented in this encounter Additional Health Concerns Assessment Noted Time PHQ-9 Depression Total Score: 11 024 3:20 PM CDT documented as of this encounter Care Teams [employer] Safety Program Coordinator Relationship Specialty Start Date End Date Charla Campos PA-C [address] [place] [address] PCP - General PHYSICIAN BARREL RAISER HELPER 08/22/23 documented as of this encounter
--- OUTSIDE RECORDS SUMMARY | 2024-06-08 07:42 | XMS_ITS | Encounter Summary ---
Author Organization [facility] Address [address] [place] [address]. [place], [place] [address] [place] [address] Care Team Providers Care Transportation Engineer Name Role Phone Charla Campos PA-C Primary Care Provider +1- [phone] Encounter Details Date Type Department Care Team (Latest Contact Info) Description 12/06/2023 Scan [facility] INFO SRVCS Scanned, Doc [...] Description 08/21/2024 4:00 PM CDT Office Visit [facility] Medical Group Family Medicine - [place] [address] [place] [address] Charla Campos PA-C [address] [place] [address] documented as of this encounter Visit Diagnoses Not on filedocumented in this encounter Additional Health Concerns Assessment Noted Time PHQ-9 Depression Total Score: 11 024 3:20 PM CDT documented as of this encounter Care Teams Transportation Engineer Relationship Specialty Start Date End Date Charla Campos PA-C [address] [place] [address] PCP - General PHYSICIAN SIGNALS OFFICER 08/22/23 documented as of this encounter
--- OUTSIDE RECORDS SUMMARY | 2024-06-08 07:42 | XMS_ITS | Encounter Summary ---
Author Organization [facility] Address [address] [place] [address]. [place] [address] [place] [address] Care Team Providers Care Hospital Receiving Clerk Name Role Phone Charla Campos PA-C Primary Care Provider +1- [phone] Encounter Details Date Type Department Care Team (Late st Contact Info) Description 01/12/[address] [facility] Medical Group Multispecialty Care - [facility] 3 [facility], [address] [place] [address] Omar Johns MD 3 [facility] [address] [place], [place] [address] Social History Tobacco Use Types Packs/Day Years [...] Description 08/21/2024 4:00 PM CDT Office Visit [facility] Medical Group Family Medicine - [address] [address] Charla Campos PA-C [address] [place] [address] documented as of this encounter Visit Diagnoses Diagnosis Ulcerative pancolitis without complication ([facility])- Primary Diarrhea, unspecified type Constipation, unspecified constipation type documented in this encounter Additional Health Concerns Assessment Noted Time PHQ-9 Depression Total Score: 11 024 3:20 PM CDT documented as of this encounter Care Teams Hospital Receiving Clerk Relationship Specialty Start Date End Date Charla Campos PA-C [address] [place] [address] PCP - General PHYSICIAN SATURATOR TENDER 08/22/23 documented as of this encounter
--- OUTSIDE RECORDS SUMMARY | 2024-06-08 07:42 | XMS_ITS | Encounter Summary ---
Author Organization [facility] Address [address] [place] [address]. [place], [place] [address] [place] [address] Care Team Providers Care Patient Biller Name Role Phone Charla Campos PA-C Primary Care Provider +1- [phone] Encounter Details Date Type Department Care Team (Latest Contact Info) Description 01/12/2024 Travel Social History Tobacco Use Types Packs/Day [...] Description 08/21/2024 4:00 PM CDT Office Visit [facility] Medical Group Family Medicine - [place] [address] [place] [address] Charla Campos PA-C [address] [place] [address] documented as of this encounter Visit Diagnoses Not on filedocumented in this encounter Additional Health Concerns Assessment Noted Time PHQ-9 Depression Total Score: 11 024 3:20 PM CDT documented as of this encounter Care Teams Patient Biller Relationship Specialty Start Date End Date Charla Campos PA-C [address] [place] [address] PCP - General PHYSICIAN DE ICER INSTALLER 08/22/23 documented as of this encounter
--- OUTSIDE RECORDS SUMMARY | 2024-06-08 07:43 | XMS_ITS | Encounter Summary ---
Author Organization [facility] Address [address] [place] [address]. [place] [address] [place] [address] Care Team Providers Care Substation Designer Name Role Phone Charla Campos PA-C Primary Care Provider +1- [phone] Encounter Details Date Type Department Care Team (Late st Contact Info) Description 10/18/2023 Orders Only [facility] Medical [facility] Multispecialty Care - [address], [address] [place] [address] Abdulaziz Hanley PA-C 3 [facility] [address] [place] [address] Social History Tobacco Use Types Packs/Day Years [...] Description 08/21/2024 4:00 PM CDT Office Visit [facility] Medical Group Family Medicine - [address] [address] Charla Campos PA-C [address] [place] [address] documented as of this encounter Visit Diagnoses Not on filedocumented in this encounter Additional Health Concerns Assessment Noted Time PHQ-9 Depression Total Score: 11 024 3:20 PM CDT documented as of this encounter Care Teams Substation Designer Relationship Specialty Start Date End Date Charla Campos PA-C [address] [place] [address] PCP - General PHYSICIAN MEDICAL TERRITORY MANAGER 08/22/23 documented as of this encounter
--- OUTSIDE RECORDS SUMMARY | 2024-06-08 07:44 | XMS_ITS | Encounter Summary ---
Author Organization [facility] Address [address] [place] [address]. [place] [address] [place] [address] Care Team Providers Care Fluid Power Mechanic Name Role Phone Charla Campos PA-C Primary Care Provider +1- [phone] Encounter Details Date Type Department Care Team (Late st Contact Info) Description 08/22/2023 There Corporationt Message Enc [facility] Medical Group Family Medicine - [place] [address] [place] [address] Charla Campos PA-C [address] [place], [place] [phone] advice Social History Tobacco Use Types Packs/Day Years [...] as of this encounter Progress Notes * Shey Mejia MA - 08/23/2023 9:54 AM CDT Per estevan she spoke to pt this morning. Form up front for bean picker documented in this encounter Plan of Treatment Upcoming Encounters Date Type Department Care Team (Late st Contact Info) Description 08/21/2024 4:00 PM CDT Office Visit [facility] Medical Group Family Medicine - [address] [address] Charla Campos PA-C [address] [place] [address] documented as of this encounter Visit Diagnoses Not on filedocumented in this encounter Additional Health Concerns Assessment Noted Time PHQ-9 Depression Total Score: 11 024 3:20 PM CDT documented as of this encounter Care Teams Fluid Power Mechanic Relationship Specialty Start Date End Date Charla Campos PA-C [address] [place] [address] PCP - General PHYSICIAN ARGON TESTER 08/22/23 documented as of this encounter
--- OUTSIDE RECORDS SUMMARY | 2024-06-08 07:44 | XMS_ITS | Encounter Summary ---
Author Organization [facility] Address [address] [place] [address]. [place], [place] [address] [place] [address] Care Team Providers Care School Superintendent Name Role Phone Charla Campos PA-C Primary Care Provider +1- [phone] Encounter Details Date Type Department Care Team (Latest Contact Info) Description 08/22/2023 Travel Social History Tobacco Use Types Packs/Day [...] Description 08/21/2024 4:00 PM CDT Office Visit [facility] Medical Group Family Medicine - [place] [address] [place] [address] Charla Campos PA-C [address] [place] [address] documented as of this encounter Visit Diagnoses Not on filedocumented in this encounter Additional Health Concerns Assessment Noted Time PHQ-9 Depression Total Score: 11 024 3:20 PM CDT documented as of this encounter Care Teams School Superintendent Relationship Specialty Start Date End Date Charla Campos PA-C [address] [place] [address] PCP - General PHYSICIAN WATER AND GAS HELPER 08/22/23 documented as of this encounter
--- OUTSIDE RECORDS SUMMARY | 2024-06-08 07:44 | XMS_ITS | Encounter Summary ---
Author Organization [facility] Address [address] [place] [address]. [place] [address] [place] [address] Care Team Providers Care Surfacing Machine Operator Name Role Phone Charla Campos PA-C Primary Care Provider +1- [phone] Reason for Visit * Reason Onset Date Comments FYI 10/10/2023 Encounter Details Date Type Department Care Team (Late st Contact Info) Description 10/10/2023 Telephone [facility] Family Medicine - [place] [address] [place] [address] Charla Campos PA-C 100 [place] [address] FYI (/) Social History Tobacco Use Types Packs/Day Years [...] Progress Notes * Shey Mejia MA - 10/10/2023 10:16 AM CDT Noted * Alize Cabrera - 10/10/2023 10:07 AM CDT Pt called requesting an appt. She said she has been sick since last 10/04. I informed thatCharla was out of town this week but I could get her in tomorrow 10/10 @ 8:10 with the covering provider if she could wait. Otherwise, she'd have to go to the UC to be evaluated and treated. She said her cough is terrible and starting this morning producing yellowish mucous. So, she said she wouldgo to the UC today to get evaluated and treated sooner. documented in this encounter Plan of Treatment Upcoming Encounters Date Type Department Care Team (Late st Contact Info) Description 08/21/2024 4:00 PM CDT Office Visit [facility] Medical [facility] Family Medicine - [place] [address] [place] [phone] Charla Campos PA-C 100 [place] [address] documented as of this encounter Visit Diagnoses Not on filedocumented in this encounter Additional Health Concerns Assessment Noted Time PHQ-9 Depression Total Score: 11 024 3:20 PM CDT documented as of this encounter Care Teams Surfacing Machine Operator Relationship Specialty Start Date End Date Charla Campos PA-C [address] [place] [address]. [place] [address] PCP - General PHYSICIAN GEOTHERMAL POWERPLANT MECHANIC HELPER 08/22/23 documented as of this encounter
--- OUTSIDE RECORDS SUMMARY | 2024-06-08 07:44 | XMS_ITS | Encounter Summary ---
Author Organization [facility] Address [address] [place] [address]. [place], [place] [phone] [place] [address] Care Team Providers Care Contact Center Representative Name Role Phone Charla Campos PA-C Primary Care Provider +1- [phone] Encounter Details Date Type Department Care Team (Latest Contact Info) Description 08/28/2023 Scan [facility] Scanned, Doc [...] [facility] Family Medicine - [place] [address] [place] [address] Charla Campos PA-C [address] [place] [address] documented as of this encounter Visit Diagnoses Not on filedocumented in this encounter Additional Health Concerns Assessment Noted Time PHQ-9 Depression Total Score: 11 024 3:20 PM CDT documented as of this encounter Care Teams Contact Center Representative Relationship Specialty Start Date End Date Charla Campos PA-C [address] [place] [address] PCP - General PHYSICIAN COMMERCIAL PHOTOGRAPHER 08/22/23 documented as of this encounter
--- OUTSIDE RECORDS SUMMARY | 2024-06-08 07:44 | XMS_ITS | Encounter Summary ---
Author Organization [facility] Address [address] [place] [address]. [place] [address] [place] [address] Care Team Providers Care Filler Feeder Name Role Phone Charla Campos PA-C Primary Care Provider +1- [phone] Encounter Details Date Type Department Care Team (Late st Contact Info) Description 10/09/2023 Moasis Message Enc [facility] Medical Group Multispecialty Care - [facility] [address] [facility], [address] [place] [phone] [employer], [facility] Provider reschedule Social History Tobacco Use Types Packs/Day Years [...] Description 08/21/2024 4:00 PM CDT Office Visit [facility] Family Medicine - [place] [phone] Charla Campos PA-C [address] [place] [address] documented as of this encounter Visit Diagnoses Not on filedocumented in this encounter Additional Health Concerns Assessment Noted Time PHQ-9 Depression Total Score: 11 024 3:20 PM CDT documented as of this encounter Care Teams Filler Feeder Relationship Specialty Start Date End Date Charla Campos PA-C [address] [place] [address] PCP - General PHYSICIAN SOIL SAMPLER 08/22/23 documented as of this encounter
--- OUTSIDE RECORDS SUMMARY | 2024-06-08 07:44 | XMS_ITS | Encounter Summary ---
Author Organization [facility] Address [address] [place] [address]. [place] [address] [place] [address] Care Team Providers Care Department Clerk Name Role Phone Charla Campos PA-C Primary Care Provider +1- [phone] Reason for Visit * Reason Onset Date Comments Reschedule 10/09/2023 Returned Call 10/09/2023 Encounter Details Date Type Department Care Team (Late st Contact Info) Description 10/09/2023 Telephone [facility] Medical [facility] Multispecialty Care - [facility] [address] [facility], [address] [place] [address] Maria T Serrano NP [address] [facility] [address] [place] [address] Reschedule; Returned Call Social History Tobacco Use Types Packs/Day Years [...] as of this encounter Progress Notes * Lino Morales - 10/09/2023 2:30 PM CDT Pt has returned missed call and was rescheduled. * Anita Reyna MA - 10/09/2023 11:24 AM CDT Not able to leave voice mail sent My chart message documented in this encounter Plan of Treatment Upcoming Encounters Date Type Department Care Team (Late st Contact Info) Description 08/21/2024 4:00 PM CDT Office Visit [facility] Medical Group Family Medicine - [place] [address] [place] [phone] Charla Campos PA-C [address] [place] [address] documented as of this encounter Visit Diagnoses Not on filedocumented in this encounter Additional Health Concerns Assessment Noted Time PHQ-9 Depression Total Score: 11 024 3:20 PM CDT documented as of this encounter Care Teams Department Clerk Relationship Specialty Start Date End Date Charla Campos PA-C [address] [place] [phone] PCP - General PHYSICIAN BOTTOMING ROOM SUPERVISOR 08/22/23 documented as of this encounter
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
--- OUTSIDE RECORDS SUMMARY | 2024-06-08 07:45 | XMS_ITS | Encounter Summary ---
Author Organization [facility] Address [address] [place] [address]. [place] [address] [place] [address] Care Team Providers Care Strategy Director Name Role Phone Unavailable Primary Care Provider Unavailabl e Reason for Visit * Reason Onset Date Comments Question 12/15/2022 Encounter Details Date Type Department Care Team (Late st Contact Info) Description 12/15/2022 Telephone [facility] Medical Group Multispecialty Care - [facility] [address] [facility] [address], [address] [place] [address] Omar Johns MD [address] [facility] [address] [place] [address] Question Social History Tobacco Use Types Packs/Day Years Used Date Smoking Tobacco: Never Smokeless Tobacco: Never Alcohol Use Standard Drinks/Week Comments Yes 0 (1 standard drink = 0.6 oz pur [...] Answer Date Recorded Patient Health Questionnaire-2 Score 0 08/15/2022 Comments No Sex and Gender Information Value Date Recorded Sex Assigned at Not on file Legal Sex Female 1:34 PM CDT Gender Identity Not on file Sexual Orientation Not on file 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 Pt rescheduled for Monday12/20/22. * Carla Hilton - 12/15/2022 11:42 AM CDTSummary: Incoming call Sujata from [facility] [place] states patient did not get RX Inflectra. Can we get that sent to the MD. Just calling to give the FYI that she didn't get her infusion treatments. documented in this encounter Plan of Treatment Upcoming Encounters Date Type Department Care Team (Late st Contact Info) Description 08/21/2024 4:00 PM CDT Office Visit [facility] Medical Group Family Medicine - [place] 100 [place] [phone] Charla Campos PA-C 100 [place] [address] documented as of this encounter Visit Diagnoses Not on filedocumented in this encounter Additional Health Concerns Assessment Noted Time PHQ-9 Depression Total Score: 3 07/30/19 22 1:18 PM PEER SUPPORT SPECIALIST documented as of this encounter
--- OUTSIDE RECORDS SUMMARY | 2024-06-08 07:45 | XMS_ITS | Encounter Summary ---
Author Organization [facility] Address [facility] [place] [address] [place] [address] Care Team Providers Care Chain Sales Consultant Name Role Phone Unavailable Primary Care Provider Unavailabl e Reason for Visit * Reason Onset Date Comments Information 08/18/2023 Encounter Details Date Type Department Care Team (Late st Contact Info) Description 08/18/2023 Telephone [facility] Medical Group Multispecialty Care - [address], [address] [place] [address] Omar Johns MD [address] [facility] [address] [place] [address] Information Social History Tobacco Use Types Packs/Day Years [...] Answer Date Recorded Patient Health Questionnaire-2 Score 1 12/20/2022 Comments No Sex and Gender Information Value Date Recorded Sex Assigned at Not on file Legal Sex Female 1:34 PM CDT Gender Identity Not on file Sexual Orientation Not on file 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 * Leonardo Barboza - 08/18/2023 9:39 AM CDT Pt called and stated that she needs to renew her license but was informed that she has a medical hold and is not able to get it renewed unless her physician fills out the form. She states that her PCP office has closed and was hoping that would fill out the form. Pt is faxing information over. Please give her a call back to f/u documented in this encounter Plan of Treatment Upcoming Encounters Date Type Department Care Team (Late st Contact Info) Description 08/21/2024 4:00 PM CDT Office Visit [facility] Medical Group Family Medicine - [place] [address] [place] [phone] Charla Campos PA-C [address] [facility] [place] [address] documented as of this encounter Visit Diagnoses Not on filedocumented in this encounter Additional Health Concerns Assessment Noted Time PHQ-9 Depression Total Score: 3 07/30/19 22 1:18 PM TREATING PLANT PUMPER documented as of this encounter
--- OUTSIDE RECORDS SUMMARY | 2024-06-08 07:45 | XMS_ITS | Encounter Summary ---
Author Organization [facility] Address [address] [place] [address]. [place], [place] [address] [place] [address] Care Team Providers Care Poultry Trimmer Name Role Phone Unavailable Primary Care Provider Unavailabl e Encounter Details Date Type Department Care Team (Latest Contact Info) Description 12/20/2022 Travel Social History Tobacco Use Types Packs/Day [...] Description 08/21/2024 4:00 PM CDT Office Visit [facility] Medical Group Family Medicine - [place] [address] [place] [address] Charla Campos PA-C [address] [place] [address] documented as of this encounter Visit Diagnoses Not on filedocumented in this encounter Additional Health Concerns Assessment Noted Time PHQ-9 Depression Total Score: 3 07/30/19 22 1:18 PM FLY FRAME TENDER documented as of this encounter
--- OUTSIDE RECORDS SUMMARY | 2024-06-08 07:45 | XMS_ITS | Encounter Summary ---
Author Organization [facility] Address [address] [place] [address]. [place], [place] [address] [place] [address] Care Team Providers Care Health Unit Coordinator Name Role Phone Unavailable Primary Care Provider Unavailabl e Reason for Visit * Reason Comments Acute Note Wounds on legs, ankl es Encounter Details Date Type Department Care Team (Late st Contact Info) Description 01/02/2023 1:00 PM CDT Office Visit [facility] [address] [facility] [address] [place] [address] Monik Fonseca MD [address] [facility] [address] [place] [phone] Acute Note (Wounds on legs, ankles) Social History Tobacco Use Types Packs/Day Years [...] Sign Reading Time Taken Comments Blood Pressure 132/88 01/02/2023 12:59 PM CDT Pulse - - Temperature - - Respiratory Rate - - Oxygen Saturation - - Inhaled Oxygen Concentration - - Weight 146.5 kg (323 lb) 01/02/2023 12:59 PM CDT Height - - Body Mass Index 45.69 12/20/2022 9:39 AM CDT documented in this encounter Progress Notes * Monik Fonseca MD - 01/02/2023 1:00 PM CDT Reason for Visit: Acute Note (Wounds on legs, ankles) HPI She tells me that she fell off [place] the [place] about a month ago. She had toclimb on rocks to climb back on the [employer]. That process caused her to scrape some skin of her ankles as well as her left thigh. Thigh is healed but the other wounds are slower to heal she denies fever or chills ROS: Review of Systems Constitutional: Negative for fever. HENT: Negative for ear pain. Eyes: Negative for pain. Respiratory: Negative for cough and shortness of breath. Cardiovascular: Negative for chest pain, palpitations and leg swelling. Gastrointestinal: Negative for diarrhea, nausea and vomiting. Genitourinary: Negative for dysuria. Musculoskeletal: Negative for myalgias. Skin: Sores of her lower extremities and will not heal for the last month. Also some slight swelling of the right ankle Neurological: Negative for dizziness. Psychiatric/Behavioral: Negative for depression. Medications: Current Outpatient Medications: azaTHIOprine (IMURAN) 50 MG tablet, Take 1 tablet (50 mg total) by mouth daily., Disp: 90 tablet, Rfl: 3 clindamycin (CLEOCIN) 300 MG capsule, Take 1 capsule (300 mg total) by mouth 3 (three) times daily for 7 days., Disp: 21 capsule, Rfl: 0 inFLIXimab-dyyb 100 MG injection, Inject 70 mLs (700 mg total) into the vein see administration instructions. 5 mg/kg per dose IV every 8 weeks for 12 months., Disp: 7 each, Rfl: 5 montelukast (SINGULAIR) 10 MG tablet, TAKE 1 TABLET BY MOUTH AT BEDTIME, Disp: 90 tablet, Rfl: 2 polyethylene glycol (GLYCOLAX) 17 GM/SCOOP powder, Take 17 g by mouth 2 (two) times daily as needed. one scoop dissolved in 8 ounces of fluid. Goal is to have 1 soft bowel movement without straining at least every other day., Disp: 238 g, Rfl: 0 SPRINTEC 28 0.25-35 MG-MCG tablet, Take 1 tablet by mouth daily., Disp: , Rfl: Immunization History Administered Date(s) Administered Hepatitis A (Havrix 1440 El.U) 07/15/2019 Hepatitis B(Engerix B Adult) 07/15/2019 Influenza Adult (Generic) 02/17/2022 PFIZER COVID-19 (ORIGINAL FORMULATION, PURPLE CAP) mRNA, LNP-S, PF, 30 MCG/0.3 ML DOSE 02/17/2022 Review of patient's allergies indicates: No Known Allergies Past Medical History: Diagnosis Date Seizures (HHS/HCC) ([facility]/HCC) Ulcerative colitis (HHS/HCC) (CMS/HCC) 06/28/2019 Dr. Omar Johns moderate to severe reed ulcerative colitis Past Surgical History: Procedure Laterality Date COLONOSCOPY N/A 06/28/2019 COLONOSCOPY WITH BIOPSIES performed by Omar Johns MD at [facility] OR ulcerative pancolitis COLONOSCOPY N/A 08/24/2020 COLONOSCOPY WITH COLON BIOPSY VIA LARGE COLD FORCEP AND STOOL SAMPLE FOR CDIFF performed by Omar Hawk MD at [facility] GI TONSILLECTOMY Social History Tobacco Use Smoking status: Never Smokeless tobacco: Never Substance Use Topics Alcohol use: Yes Comment: occasional Social History Socioeconomic History Marital status: Single Occupational History 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 Cardiovascular: Normal rate and regular rhythm. Pulmonary/Chest: Effort normal and breath sounds normal. Abdominal: Soft. Musculoskeletal: Normal range of motion. Right ankle reveals some slight swelling of the lateral malleolus area. Good strength and sensationand range of motion. Neurological: She is alert. Skin: Skin is warm and dry. A few erythematous lesions of both lower extremities suggestive of nonhealing wounds slight erythema surrounding them no discharge but slight tenderness. Filed Vitals: 01/02/23 1259 BP: 132/88 Weight: (!) 146.5 kg (323 lb) Body mass index is 45.69 kg/m??. Assessment: 1. Cellulitis, unspecified cellulitis site clindamycin (CLEOCIN) 300 MG capsule Plan: - Comply with suggestions for healthy lifestyle Diagnoses and all orders for this visit: Cellulitis, unspecified cellulitis site - clindamycin (CLEOCIN) 300 MG capsule; Take 1 capsule (300 mg total) by mouth 3 (three) times daily for 7 days. We had a detailed discussion about her condition. I doubt this is a parasite or any unusual situation. Appears to be to be some cellulitis. We discussed wound care elevation is much as possible and the antibiotics. Follow-up if no improvement or if it worsens Reviewed and updated this visit by provider: Allergies No follow-ups on file. MONIK FONSECA MD Referring Provider: No ref. provider found PCP: MONIK FONSECA MD documented in this encounter Plan of Treatment Upcoming Encounters Date Type Department Care Team (Late st Contact Info) Description 08/21/2024 4:00 PM CDT Office Visit [facility] Family Medicine - [place] [address] [place] [phone] Charla Campos PA-C [address] [place] [address] documented as of this encounter Visit Diagnoses Diagnosis Cellulitis, unspecified cellulitis site- Primary documented in this encounter Additional Health Concerns Assessment Noted Time PHQ-9 Depression Total Score: 3 07/30/19 22 1:18 PM RENAL MEDICINE SPECIALIST documented as of this encounter
--- OUTSIDE RECORDS SUMMARY | 2024-06-08 07:45 | XMS_ITS | Encounter Summary ---
Author Organization [facility] Address [address] [place] [address]. [place] [address] [place] [address] Care Team Providers Care Nuclear Equipment Operator Name Role Phone Unavailable Primary Care Provider Unavailabl e Reason for Visit * Reason Onset Date Comments Appointment Request 11/21/2022 Encounter Details Date Type Department Care Team (Late st Contact Info) Description 11/21/2022 Telephone [facility] [address] [address] Maria T Serrano NP [address] [address] Appointment Request Social History Tobacco Use Types [...] as of this encounter Progress Notes * Anita Reyna MA - 11/21/2022 11:03 AM CDT Pt states she is still out of town she will get labs when she returns and call office to schedule f/u no additional questions or concerns at this time. ----- Message from Seble Bliss NP sent at 11/11/2022 9:38 AM CDT ----- Recommend follow up to discuss her symptoms to make sure her infusions are not causing underlying problems for her. Please have her perform labs soon so we can evaluate her tolerance. I will send to [facility] and fasting is preferred. Thanks, SAGAR Pruett NP ----- Message ----- From: Anita Reyna MA Sent: 11/11/2022 9:18 AM CDT To: Seble Bliss NP ----- Message from Anita Reyna MA sent at 11/11/2022 9:18 AM CDT ----- Pls advise pt states she becomes very Ill after infusion is there anything she could take. Thank you documented in this encounter Plan of Treatment Upcoming Encounters Date Type Department Care Team (Late st Contact Info) Description 08/21/2024 4:00 PM CDT Office Visit [facility] Family Medicine - [place] [address] [place] [phone] Charla Campos PA-C [address] [place] [address] documented as of this encounter Visit Diagnoses Not on filedocumented in this encounter Additional Health Concerns Assessment Noted Time PHQ-9 Depression Total Score: 3 07/30/19 22 1:18 PM AUTOMATION QA TESTER documented as of this encounter
--- OUTSIDE RECORDS SUMMARY | 2024-06-08 07:45 | XMS_ITS | Encounter Summary ---
Author Organization [facility] Address [address] [place] [address]. [place], [place] [address] [place] [address] Care Team Providers Care Drilling Inspector Name Role Phone Unavailable Primary Care Provider Unavailabl e Encounter Details Date Type Department Care Team (Latest Contact Info) Description 06/07/2023 Scan HEALTH INFO SRVCS Scanned, Doc Med Group [...] [facility] Family Medicine - [place] [address] [place] [address] Charla Campos PA-C [address] [place] [address] documented as of this encounter Visit Diagnoses Not on filedocumented in this encounter Additional Health Concerns Assessment Noted Time PHQ-9 Depression Total Score: 3 07/30/19 22 1:18 PM SCRAP BUNCH MAKER documented as of this encounter
--- OUTSIDE RECORDS SUMMARY | 2024-06-08 07:45 | XMS_ITS | Encounter Summary ---
Author Organization [facility] Address [facility]ly [facility] [facility] [address] [place] [address] Care Team Providers Care Computer Education Teacher Name Role Phone Unavailable Primary Care Provider Unavailabl e Encounter Details Date Type Department Care Team (Late st Contact Info) Description 11/11/2022 Orders Only [facility] Group Multispecialty Care - [facility] [address] [facility], [address] [place] [address] Seble Bliss, JORI [address] [facility]. [address] [place] [address] Social History Tobacco Use Types Packs/Day Years [...] Description 08/21/2024 4:00 PM CDT Office Visit [facility] Medical Group Family Medicine - [place] [address] Charla Campos PA-C [address] [place] [address] documented as of this encounter Results * (ABNORMAL) COMPREHENSIVE METABOLIC PANEL (12/10/2022 9:40 AM CDT) [facility] GLUCOSE 101(H) 70 - 99 MG/DL 12/10/2022 10:20 AM CDT [facility] BUN 10 7 - 18 MG/DL 12/10/2022 10:20 AM CDT [facility] CREATININE S/P/B 0.81 0.55 - 1.02 MG/DL 12/10/2022 10:20 AM CDT [facility] SODIUM S/P/B 139 136 - 145 MMOL/L 12/10/2022 10:20 AM CDT [facility] POTASSIUM S/P/B 4.3 3.5 - 5.1 MMOL/L 12/10/2022 10:20 AM CDT [facility] CHLORIDE S/P/B 109(H) 100 - 108 MMOL/L 12/10/2022 10:20 AM CDT [facility] CO2 23.9 21 - 32 MMOL/L 12/10/2022 10:20 AM T [facility] CALCIUM S/P/B 9.4 8.5 - 10.1 MG/DL 12/10/2022 10:20 AM T [facility] BILIRUBIN TOTAL S/P/B 0.5 0.2 - 1.2 MG/DL 12/10/2022 10:20 AM T [facility] Comment: THIS ASSAY IS NOT RECOMMENDED FOR PATIENTS UNDERGOING TREATMENT WITH ELTROMBOPAG DUE TO THE POTENTIAL FOR FALSELY ELEVATED RESULTS. TOTAL PROTEIN S/P/B 7.8 6.4 - 8.2 G/DL 12/10/2022 10:20 AM T [facility] ALBUMIN S/P/B 3.5 3.4 - 5.0 G/DL 12/10/2022 10:20 AM T [facility] AST 15 15 - 37 U/L 12/10/2022 10:20 AM [facility] ALT 13(L) 14 - 55 U/L 12/10/2022 10:20 AM [facility] ALKALINE PHOSPHATASE S/P/B 59 50 - 136 U/L 12/10/2022 10:20 AM [facility] ANION GAP 6.1 5 - 15 MMOL/L 12/10/2022 10:20 AM [facility] BUN CREATININE RATIO 12.4 6 - 26 12/10/2022 10:20 AM [facility] A/G RATIO 0.8(L) 1.0 - 2.0 RATIO 12/10/2022 10:20 AM [facility] GFR ESTIMATE >90 >90 ML/MIN/1.7 3 M2 12/10/2022 10:20 AM [facility] Comment: NOTE: eGFR is not calculated for patients <18 years of age. This is an estimated GFR calculation using the new CKD EPI creatinine equation without race and so does not require a correction factor for race. This estimated GFR should not be used for calculating drug doses. 12/10/2022 9:40 AM CDT Seble Bliss NP LABORATORY Final Result [facility] [address] [place] [address], [place] [phone] * (ABNORMAL) CBC W/DIFF AUTOMATED (12/10/2022 9:40 AM CDT) WBC 8.8 4.5 - 11.0 x10'3/uL 12/10/2022 10:01 AM CDT [facility] RBC 5.21 4.20 - 5.40 x10'6/uL 12/10/2022 10:01 AM CDT [facility] HGB 15.2 12.0 - 16.0 G/DL 12/10/2022 10:01 AM CDT [facility] HCT 47.2 38.0 - 48.0 % 12/10/2022 10:01 AM CDT [facility] MCV 90.6 81.0 - 99.0 FL 12/10/2022 10:01 AM CDT [facility] MCH 29.2 27.0 - 31.0 PG 12/10/2022 10:01 AM CDT [facility] MCHC 32.2 32.0 - 36.0 G/DL 12/10/2022 10:01 AM CDT [facility] RDW 13.0 11.5 - 14.5 % 12/10/2022 10:01 AM CDT [facility] PLT 336 130 - 400 x10'3/uL 12/10/2022 10:01 AM CDT [facility] MPV 9.7 9.3 - 12.2 FL 12/10/2022 10:01 AM [facility] DIFFERENTIAL TYPE AUTOMATED DIFFERENTIAL 12/10/2022 10:01 AM T [facility] NEUTROPHILS % 53.7 % 12/10/2022 10:01 AM T [facility] LYMPHOCYTES % 33.0 % 12/10/2022 10:01 AM T [facility] MONOCYTES % 9.5 % 12/10/2022 10:01 AM T [facility] EOSINOPHILS 2.5 % 12/10/2022 10:01 AM [facility] BASOPHILS 1.0 % 12/10/2022 10:01 AM T [facility] IMMATURE GRANS % 0.3 % 12/11/19 10:01 AM [facility] ABS. NEUTROPHILS TOTAL 4.73 1.80 - 7.70 x10'3/uL 12/10/2022 10:01 AM [facility] ABS. LYMPHOCYTES 2.91 1.00 - 4.80 x10'3/uL 12/10/2022 10:01 AM [facility] ABS. MONOCYTES 0.84 0.24 - 0.86 x10'3/uL 12/10/2022 10:01 AM [facility] ABS. EOSINOPHILS 0.22 0.04 - 0.36 x10'3/uL 12/10/2022 10:01 AM [facility] ABS. BASOPHILS 0.09(H) 0.01 - 0.08 x10'3/uL 12/10/2022 10:01 AM [facility] ABS. IMMATURE GRANULOCYTES 0.03 0.00 - 0.49 x10'3/uL 12/10/2022 10:01 AM CDT [facility] 12/10/2022 9:40 AM CDT Seble Bliss NP LABORATORY Final Result [facility] [address] [place] [address], [place] [phone] documented in this encounter Visit Diagnoses Diagnosis Ulcerative pancolitis with rectal bleeding (CMS/HCC HHS/HCC)- Primary documented in this encounter Additional Health Concerns Assessment Noted Time PHQ-9 Depression Total Score: 3 07/30/19 22 1:18 PM ALTITUDE CHAMBER TECHNICIAN documented as of this encounter
--- OUTSIDE RECORDS SUMMARY | 2024-06-08 07:45 | XMS_ITS | Encounter Summary ---
Author Organization [facility] Address [address] [place] [address]. [place], [place] [address] [place] [address] Care Team Providers Care Summer School Coordinator Name Role Phone Unavailable Primary Care Provider Unavailabl e Encounter Details Date Type Department Care Team (Latest Contact Info) Description 12/10/2022 Travel Social History Tobacco Use Types Packs/Day [...] Description 08/21/2024 4:00 PM CDT Office Visit [facility] Family Medicine - [place] [address] [place] [address] Charla Campos PA-C [address] [place] [address] documented as of this encounter Visit Diagnoses Not on filedocumented in this encounter Additional Health Concerns Assessment Noted Time PHQ-9 Depression Total Score: 3 07/30/19 22 1:18 PM SHALE MINER BLASTING documented as of this encounter
--- OUTSIDE RECORDS SUMMARY | 2024-06-08 07:45 | XMS_ITS | Encounter Summary ---
Author Organization [facility] Address [address] [place] [address]. [place] [address] [place] [address] Care Team Providers Care Private Mortgage Banker Safe Name Role Phone Unavailable Primary Care Provider Unavailabl e Reason for Visit * Reason Onset Date Comments Question 12/02/2022 Encounter Details Date Type Department Care Team (Late st Contact Info) Description 12/02/2022 Telephone [facility] Multispecialty Care - [facility] [address] [facility], [facility] [address] [place] [address] Seble Bliss NP 3 [facility]. [facility] [address] [place] [address] Question Social History Tobacco Use Types Packs/Day [...] encounter Progress Notes * Alia Gambino - 12/02/2022 12:28 PM CDTSummary: Pt called re: blood work She wanted to request a different location for her blood work order. [facility] is not convenient for her.[facility] in the [facility] area...then you can discuss setting up an appointment with us too. Thank you documented in this encounter Plan of Treatment Upcoming Encounters Date Type Department Care Team (Late st Contact Info) Description 08/21/2024 4:00 PM CDT Office Visit [facility] Family Medicine - [place] [address] [place] [phone] Charla Campos PA-C [address] [place] [address] documented as of this encounter Visit Diagnoses Not on filedocumented in this encounter Additional Health Concerns Assessment Noted Time PHQ-9 Depression Total Score: 3 07/30/19 22 1:18 PM CARBON SETTER documented as of this encounter
--- OUTSIDE RECORDS SUMMARY | 2024-06-08 07:45 | XMS_ITS | Encounter Summary ---
Author Organization [facility] Address [address] [place] [address]. [place], [place] [address] [place] [address] Care Team Providers Care Straw Boss Name Role Phone Charla Campos PA-C Primary Care Provider [phone]- [phone] Encounter Details Date Type Department Care Team (Latest Contact Info) Description 08/11/2023 Scan MG HEALTH INFO SRVCS Scanned, Doc [...] Description 08/21/2024 4:00 PM CDT Office Visit [facility] Family Medicine - [address] [phone] Charla Campos PA-C [address] [place] [address] documented as of this encounter Visit Diagnoses Not on filedocumented in this encounter Additional Health Concerns Assessment Noted Time PHQ-9 Depression Total Score: 3 07/30/19 22 1:18 PM MECHANICAL FITTER documented as of this encounter Care Teams Straw Boss Relationship Specialty Start Date End Date Charla Campos PA-C [address] [place] [address] PCP - General PHYSICIAN RESTAURANT FRONT MANAGER 08/22/23 documented as of this encounter
--- OUTSIDE RECORDS SUMMARY | 2024-06-08 07:45 | XMS_ITS | Encounter Summary ---
Author Organization [facility] Address [address] [place] [address]. [place] [address] [place] [address] Care Team Providers Care Crane Operator Name Role Phone Unavailable Primary Care Provider Unavailabl e Reason for Visit * Reason Onset Date Comments Prior Authorization 05/30/2023 Encounter Details Date Type Department Care Team (Late st Contact Info) Description 05/30/2023 Telephone [facility] Multispecialty Care - [facility] [address] [facility] [address], [facility] [address] [place] [address] Maria T Serrano NP [address] [facility] [address] [place] [address] Prior Authorization Social History Tobacco Use Types Packs/Day Years [...] Progress Notes * Lizbeth Huizar RN - 05/30/2023 12:13 PM CST Call patient and got information that she receives infusions at [facility]. Called [facility] and gave office patient's new insurance information. Faxed over most recent progress note per recommendation. [facility] will work on Authorization Called patient to make her aware patient VU. PROCESSING OPERATOR * Leonardo Barboza - 05/30/2023 11:46 AM CST Pt called and stated that she has new insurance(that has already been updated) and needs authorization for her infusions to be completed before her next treatment on 06/07. Please give pt a call back to discuss once approval is obtained [phone] PROCESSING OPERATOR documented in this encounter Plan of Treatment Upcoming Encounters Date Type Department Care Team (Late st Contact Info) Description 08/21/2024 4:00 PM CDT Office Visit [facility] Family Medicine - [place] [address] [place] [phone] Charla Campos PA-C [address] [facility] [place] [address] documented as of this encounter Visit Diagnoses Not on filedocumented in this encounter Additional Health Concerns Assessment Noted Time PHQ-9 Depression Total Score: 3 07/30/19 22 1:18 PM DATA PROCESSING OPERATOR documented as of this encounter
--- OUTSIDE RECORDS SUMMARY | 2024-06-08 07:45 | XMS_ITS | Encounter Summary ---
Author Organization [facility] Address [facility] [place] [address] [place] [address] Care Team Providers Care Implementation Services Analyst Name Role Phone Unavailable Primary Care Provider Unavailabl e Reason for Visit * Reason Onset Date Comments Information 11/11/2022 Encounter Details Date Type Department Care Team (Late st Contact Info) Description 11/11/2022 Telephone [facility] Group Multispecialty Care - [facility] 3 [facility], [address] [place] [address] Seble Bliss NP 3 [facility]. [address] [place] [address] Information Social History Tobacco Use Types Packs/Day [...] Progress Notes * Anita Reyna MA - 11/11/2022 9:16 AM CDT Pt VU documented in this encounter Plan of Treatment Upcoming Encounters Date Type Department Care Team (Late st Contact Info) Description 08/21/2024 4:00 PM CDT Office Visit [facility] Medical Group Family Medicine - [place] [address] Charla Campos PA-C [address] [place] [address] documented as of this encounter Visit Diagnoses Not on filedocumented in this encounter Additional Health Concerns Assessment Noted Time PHQ-9 Depression Total Score: 3 07/30/19 22 1:18 PM MARINE EQUIPMENT TEST ENGINEER documented as of this encounter
--- OUTSIDE RECORDS SUMMARY | 2024-06-08 07:45 | XMS_ITS | Encounter Summary ---
Author Organization [facility] Address [address] [place] [address]. [place] [address] [place] [address] Care Team Providers Care House Admin Name Role Phone Unavailable Primary Care Provider Unavailabl e Reason for Visit * Reason Onset Date Comments Error 12/02/2022 Encounter Details Date Type Department Care Team (Late st Contact Info) Description 12/02/2022 Telephone [facility] [address] [address] Maria T Serrano NP [address] [address] Error Social History Tobacco Use Types Packs/Day Years [...] Progress Notes * Alia Gambino - 12/02/2022 12:27 PM CDT Error documented in this encounter Plan of Treatment Upcoming Encounters Date Type Department Care Team (Late st Contact Info) Description 08/21/2024 4:00 PM CDT Office Visit [facility] Medical Group Family Medicine - [place] 100 [place] [phone] Charla Campos PA-C 100 [place] [address] documented as of this encounter Visit Diagnoses Not on filedocumented in this encounter Additional Health Concerns Assessment Noted Time PHQ-9 Depression Total Score: 3 07/30/19 22 1:18 PM WRAPPER STRIPPER documented as of this encounter
--- OUTSIDE RECORDS SUMMARY | 2024-06-08 07:45 | XMS_ITS | Encounter Summary ---
Author Organization [facility] Address [facility] [place] [address] [place] [address] Care Team Providers Care Securities Underwriter Name Role Phone Unavailable Primary Care Provider Unavailabl e Encounter Details Date Type Department Care Team (Latest Contact Info) Description 12/10/2022 9:30 AM CDT - 12/10/2022 11:59 PM CDT Hospital Encounter [facility] [place] [address] Seble Bliss, JORI [address] [facility] [place]. [address] [place] [address] Discharge Disposition: Home or Self Care (Routine [...] this encounter Medications at Time of Discharge inFLIXimab-dyyb 100 MG injectionIndicati ons:Ulcerative pancolitis without complication ([facility] HHS/[facility]) Inject 70 mLs (700 mg total) into the vein see administration instructions. 5 mg/kg per dose IV every 8 weeks for 12 months. 7 each 5 2 azaTHIOprine (IMURAN) 50 MG tabletIndications :Ulcerative pancolitis without complication ([facility] HHS/[facility]) Take 1 tablet (50 mg total) by mouth daily. 90 tablet 3 3 08/21/19 24 desogestrel-ethin yl estradiol (AZURETTE) 0.15-0.02/0.01 MG (16/10) tabletIndications :Routine general medical examination at a health care facility Take 1 tablet by mouth daily. 84 tablet 1 2 01/03/20 23 montelukast (SINGULAIR) 10 MG tabletIndications :Chronic rhinitis TAKE 1 TABLET BY MOUTH AT BEDTIME 90 tablet 2 3 03/28/20 23 polyethylene glycol (GLYCOLAX) 17 GM/SCOOP powderIndications :Constipation, unspecified constipation type Take 17 g by mouth 2 (two) times daily as needed. one scoop dissolved in 8 ounces of fluid. Goal is to have 1 soft bowel movement without straining at least every other day. 238 g 3 08/22/19 24 documented as of this encounter Plan of Treatment Upcoming Encounters Date Type Department Care Team (Late st Contact Info) Description 08/21/2024 4:00 PM CDT Office Visit [facility] Family Medicine - [place] [address] [place] [phone] Charla Campos PA-C [address] [place] [address] documented as of this encounter Procedures Procedure Name Priority Date/Time Associated Diagnosis Comments TBGOLD-TUBERCULOSIS TST CELL MEDIATED IMMUNITY Routine 12/10/2022 9:40 AM CDT Ulcerative pancolitis without complication (CMS/HCC HHS/HCC) COMPREHENSIVE METABOLIC PANEL Routine 12/10/2022 9:40 AM CDT Ulcerative pancolitis with rectal bleeding (CMS/HCC HHS/HCC) CBC W/DIFF AUTOMATED Routine 12/10/2022 9:40 AM CDT Ulcerative pancolitis with rectal bleeding ([facility]/HCC HHS/HCC) documented in this encounter Results * (ABNORMAL) COMPREHENSIVE METABOLIC PANEL (12/10/2022 9:40 AM CDT) GLUCOSE 101(H) 70 - 99 MG/DL 12/10/2022 10:20 AM CDT [facility] BUN 10 7 - 18 MG/DL 12/10/2022 10:20 AM CDT [facility] CREATININE S/P/B 0.81 0.55 - 1.02 MG/DL 12/10/2022 10:20 AM CDT [facility] SODIUM S/P/B 139 136 - 145 MMOL/L 12/10/2022 10:20 AM CDT [facility] POTASSIUM S/P/B 4.3 3.5 - 5.1 MMOL/L 12/10/2022 10:20 AM CDT [facility] CHLORIDE S/P/B 109(H) 100 - 108 MMOL/L 12/10/2022 10:20 AM CDT [facility] CO2 23.9 21 - 32 MMOL/L 12/10/2022 10:20 AM T [facility] CALCIUM S/P/B 9.4 8.5 - 10.1 MG/DL 12/10/2022 10:20 AM [facility] BILIRUBIN TOTAL S/P/B 0.5 0.2 - 1.2 MG/DL 12/10/2022 10:20 AM [facility] Comment: THIS ASSAY IS NOT RECOMMENDED FOR PATIENTS UNDERGOING TREATMENT WITH ELTROMBOPAG DUE TO THE POTENTIAL FOR FALSELY ELEVATED RESULTS. TOTAL PROTEIN S/P/B 7.8 6.4 - 8.2 G/DL 12/10/2022 10:20 AM [facility] ALBUMIN S/P/B 3.5 3.4 - 5.0 G/DL 12/10/2022 10:20 AM [facility] AST 15 15 - 37 U/L 12/10/2022 10:20 AM [facility] ALT 13(L) 14 - 55 U/L 12/10/2022 10:20 AM [facility] ALKALINE PHOSPHATASE S/P/B 59 50 - 136 U/L 12/10/2022 10:20 AM [facility] ANION GAP 6.1 5 - 15 MMOL/L 12/10/2022 10:20 AM [facility] BUN CREATININE RATIO 12.4 6 - 26 12/10/2022 10:20 AM [facility] A/G RATIO 0.8(L) 1.0 - 2.0 RATIO 12/10/2022 10:20 AM [facility] GFR ESTIMATE >90 >90 ML/MIN/1.7 3 M2 12/10/2022 10:20 AM [facility] Comment: NOTE: eGFR is not calculated for patients <18 years of age. This is an estimated GFR calculation using the new CKD EPI creatinine equation without race and so does not require a correction factor for race. This estimated GFR should not be used for calculating drug doses. 12/10/2022 9:40 AM CDT us Seble Bliss NP LABORATORY Final Result [facility] [address] [place] [address], * (ABNORMAL) CBC W/DIFF AUTOMATED (12/10/2022 9:40 AM CDT) WBC 8.8 4.5 - 11.0 x10'3/uL 12/10/2022 10:01 AM CDT [facility] RBC 5.21 4.20 - 5.40 x10'6/uL 12/10/2022 10:01 AM CDT [facility] HGB 15.2 12.0 - 16.0 G/DL 12/10/2022 10:01 AM CDT [facility] HCT 47.2 38.0 - 48.0 % 12/10/2022 10:01 AM CDT [facility] MCV 90.6 81.0 - 99.0 FL 12/10/2022 10:01 AM CDT [facility] MCH 29.2 27.0 - 31.0 PG 12/10/2022 10:01 AM CDT [facility] MCHC 32.2 32.0 - 36.0 G/DL 12/10/2022 10:01 AM CDT [facility] RDW 13.0 11.5 - 14.5 % 12/10/2022 10:01 AM CDT [facility] PLT 336 130 - 400 x10'3/uL 12/10/2022 10:01 AM CDT [facility] MPV 9.7 9.3 - 12.2 FL 12/10/2022 10:01 AM T [facility] DIFFERENTIAL TYPE AUTOMATED DIFFERENTIAL 12/10/2022 10:01 AM T [facility] NEUTROPHILS % 53.7 % 12/10/2022 10:01 AM T [facility] LYMPHOCYTES % 33.0 % 12/10/2022 10:01 AM T [facility] MONOCYTES % 9.5 % 12/10/2022 10:01 AM T [facility] EOSINOPHILS 2.5 % 12/10/2022 10:01 AM T [facility] BASOPHILS 1.0 % 12/10/2022 10:01 AM T [facility] IMMATURE GRANS % 0.3 % 12/11/19 10:01 AM T [facility] ABS. NEUTROPHILS TOTAL 4.73 1.80 - 7.70 x10'3/uL 12/10/2022 10:01 AM T [facility] ABS. LYMPHOCYTES 2.91 1.00 - 4.80 x10'3/uL 12/10/2022 10:01 AM T [facility] ABS. MONOCYTES 0.84 0.24 - 0.86 x10'3/uL 12/10/2022 10:01 AM T [facility] ABS. EOSINOPHILS 0.22 0.04 - 0.36 x10'3/uL 12/10/2022 10:01 AM T [facility] ABS. BASOPHILS 0.09(H) 0.01 - 0.08 x10'3/uL 12/10/2022 10:01 AM T [facility] ABS. IMMATURE GRANULOCYTES 0.03 0.00 - 0.49 x10'3/uL 12/10/2022 10:01 AM CDT [facility] 12/10/2022 9:40 AM CDT Seble Bliss NP LABORATORY Final Result Performing Organization Address [facility] Co de Phone Number [facility] [address] [place] [address], [place] [phone] * TBGOLD-TUBERCULOSIS TST CELL MEDIATED IMMUNITY (12/10/2022 9:40 AM CDT) TB1 AG MINUS NIL 0.01 IU/ML 12/13/19 10:36 AM CDT [facility] TB2 AG MINUS NIL 0.00 IU/ML 12/13/19 10:36 AM CDT [facility] TB QUANTIFERON NEGATIVE NEGATIVE 12/12/2022 10:36 AM CDT [facility] TB INTERPRETATION M. tuberculosis infection unlikely but cannot be excluded especially when any illness is consistent with TB disease and/or likelihood of progression to disease is increased. ?? In patients at high risk to M. tuberculosis infection, a second test should be considered. 12/12/2022 10:36 AM CDT [facility] 12/10/2022 9:40 AM CDT Seble Bliss NP LABORATORY Final Result Performing Organization Address City/[facility]/ZIP Co de Phone Number [facility] [address] [place] [address], [place] [phone] documented in this encounter Visit Diagnoses Diagnosis Ulcerative pancolitis without complication (CMS/HCC HHS/HCC) Ulcerative pancolitis with rectal bleeding (CMS/HCC HHS/HCC) documented in this encounter Additional Health Concerns Assessment Noted Time PHQ-9 Depression Total Score: 3 07/30/19 22 1:18 PM ORGAN RECOVERY COORDINATOR documented as of this encounter
--- OUTSIDE RECORDS SUMMARY | 2024-06-08 07:45 | XMS_ITS | Encounter Summary ---
Author Organization [facility] Address [address] [place] [address]. [place], [place] [address] [place] [address] Care Team Providers Care Quality Inspector Name Role Phone Charla Campos PA-C Primary Care Provider [phone] Encounter Details Date Type Department Care Team (Latest Contact Info) Description 08/10/2023 Scan [facility] HE[facility] INFO SRVCS Scanned, Doc [...] [facility] Family Medicine - [address] [address] Charla Campos PA-C [address] [place] [address] documented as of this encounter Visit Diagnoses Not on filedocumented in this encounter Additional Health Concerns Assessment Noted Time PHQ-9 Depression Total Score: 3 07/30/19 22 1:18 PM CUTTER PLASTICS ROLLS documented as of this encounter Care Teams Quality Inspector Relationship Specialty Start Date End Date Charla Campos PA-C [address] [place] [address] PCP - General PHYSICIAN WELL SERVICING RIG OPERATOR 08/22/23 documented as of this encounter
--- OUTSIDE RECORDS SUMMARY | 2024-06-08 07:45 | XMS_ITS | Encounter Summary ---
Author Organization [facility] Address [address] [place] [address]. [place] [address] [place] [address] Care Team Providers Care Manager Business Banking Name Role Phone Unavailable Primary Care Provider Unavailabl e Reason for Visit * Reason Onset Date Comments Appointment Request 08/21/2023 Encounter Details Date Type Department Care Team (Late st Contact Info) Description 08/21/2023 Telephone [facility] Multispecialty Care - [facility] [address] [facility], [address] [place] [address] Maria T Serrano NP [address] [facility] [address] [place] [address] Appointment Request Social History Tobacco Use Types [...] Progress Notes * Anita Reyna MA - 08/21/2023 4:14 PM CDT Pt scheduled in [place] per pt request pt VU documented in this encounter Plan of Treatment Upcoming Encounters Date Type Department Care Team (Late st Contact Info) Description 08/21/2024 4:00 PM CDT Office Visit [facility] Medical [facility] Family Medicine - [place] [phone] Charla Campos PA-C [address] [place] [address] documented as of this encounter Visit Diagnoses Not on filedocumented in this encounter Additional Health Concerns Assessment Noted Time PHQ-9 Depression Total Score: 3 07/30/19 22 1:18 PM ACCOUNT SERVICES ASSOCIATE documented as of this encounter
--- OUTSIDE RECORDS SUMMARY | 2024-06-08 07:45 | XMS_ITS | Encounter Summary ---
Author Organization [facility] Address [address] [place] [address]. [place], [place] [address] [place] [address] Care Team Providers Care Bladder Cleaner Name Role Phone Unavailable Primary Care Provider Unavailabl e Encounter Details Date Type Department Care Team (Latest Contact Info) Description 12/20/2022 Scan HEALTH INFO SRVCS Scanned, Doc Med [...] Description 08/21/2024 4:00 PM CDT Office Visit [facility] Family Medicine - [place] [address] [place] [address] Charla Campos PA-C [address] [place] [address] documented as of this encounter Visit Diagnoses Not on filedocumented in this encounter Additional Health Concerns Assessment Noted Time PHQ-9 Depression Total Score: 3 07/30/19 22 1:18 PM FARM MECHANIC documented as of this encounter
--- OUTSIDE RECORDS SUMMARY | 2024-06-08 07:45 | XMS_ITS | Encounter Summary ---
Author Organization [facility] Address [address] [place] [address]. [place] [address] [place] [address] Care Team Providers Care Seed Service Advisor Name Role Phone Unavailable Primary Care Provider Unavailabl e Reason for Visit * Reason Onset Date Comments Information 11/07/2022 Encounter Details Date Type Department Care Team (Late st Contact Info) Description 11/07/2022 Telephone [facility] Medical Group Multispecialty Care - [facility] [address] [facility], [address] [place] [address] Seble Bliss NP 3 [facility]. [address] [place] [address] Information Social History Tobacco Use Types Packs/Day [...] Progress Notes * Anita Reyna MA - 11/07/2022 12:13 PM CDT LVM(need to speak with pt) documented in this encounter Plan of Treatment Upcoming Encounters Date Type Department Care Team (Late st Contact Info) Description 08/21/2024 4:00 PM CDT Office Visit [facility] Medical Group Family Medicine [place] [address] Charla Campos PA-C [address] [place] [address] documented as of this encounter Visit Diagnoses Not on filedocumented in this encounter Additional Health Concerns Assessment Noted Time PHQ-9 Depression Total Score: 3 07/30/19 22 1:18 PM SPIDER ASSEMBLER documented as of this encounter
--- OUTSIDE RECORDS SUMMARY | 2024-06-08 07:45 | XMS_ITS | Encounter Summary ---
Author Organization [facility] Address [address] [place] [address]. [place] [address] [place] [address] Care Team Providers Care Setter Cold Rolling Machine Name Role Phone Unavailable Primary Care Provider Unavailabl e Reason for Visit * Reason Onset Date Comments Returned Call 12/05/2022 Encounter Details Date Type Department Care Team (Late st Contact Info) Description 12/05/2022 Telephone [facility] [address] [address] Maria T Serrano, JORI [address] [address] Returned Call Social History Tobacco Use Types [...] Progress Notes * Anita Reyna MA - 12/05/2022 1:31 PM CDT Pt stated she will get lab work Monday f/u made pt VU no additional questions at this time. ----- Message from Marylou Hernandez LPN sent at 12/05/2022 11:20 AM CDT ----- Please review. ----- Message ----- From: Alia Gambino Sent: 12/02/2022 12:33 PM CDT To: Seble Haynes Nurse documented in this encounter Plan of Treatment Upcoming Encounters Date Type Department Care Team (Late st Contact Info) Description 08/21/2024 4:00 PM CDT Office Visit [facility] Family Medicine - [place] [address] [place] [phone] Charla Campos PA-C [address] [facility] [place] [address] documented as of this encounter Visit Diagnoses Not on filedocumented in this encounter Additional Health Concerns Assessment Noted Time PHQ-9 Depression Total Score: 3 07/30/19 22 1:18 PM CONCRETE BLOCK MAKER documented as of this encounter
--- OUTSIDE RECORDS SUMMARY | 2024-06-08 07:45 | XMS_ITS | Encounter Summary ---
Author Organization [facility] Address [address] [place] [address]. [place] [address] [place] [address] Care Team Providers Care Interior Assemblies Developer Prover Name Role Phone Unavailable Primary Care Provider Unavailabl e Reason for Visit * Reason Comments Follow Up Crohn's Encounter Details Date Type Department Care Team (Latest Contact Info) Description 12/20/2022 9:40 AM CDT Office Visit [facility] Medical [facility] Multispecialty Care - [facility] [address] [facility], [address] [place] [address] Maria T Serrano NP 3 [facility] [address] [place] [address] Follow Up (Crohn's ) Social History Tobacco Use Types Packs/Day Years Used Date Smoking Tobacco: Never Smokeless Tobacco: Never Tobacco Cessation:Counseling Given: No Alcohol Use Standard Drinks/Week Comments Yes 0 [...] Sign Reading Time Taken Comments Blood Pressure 138/80 12/20/2022 9:39 AM CDT Pulse 88 12/20/2022 9:39 AM CDT Temperature 36.9 ??C (98.4 ??F) 12/20/2022 9:39 AM CD T Respiratory Rate 20 12/20/2022 9:39 AM CDT Oxygen Saturation 99% 12/20/2022 9:39 AM CDT Inhaled Oxygen Concentration - - Weight 147.4 kg (325 lb) 12/20/2022 9:39 AM CDT Height 179.1 cm (5' 10.5 ) 12/20/2022 9:39 AM CD T Body Mass Index 45.97 12/20/2022 9:39 AM CDT documented in this encounter Patient Instructions * Patient Instructions* Maria T Serrano NP - 12/20/2022 9:40 AM CDT It is recommended to consume 20-35 grams of fiber per day and at least 64 ounces/2 liters of water per day. Below are the common foods with fiber content listed for you. This will help with normal bowel movements. ?? 2018 [employer] and/or its affiliates. All Rights Reserved. Amount of fiber in different foods Food Serving Grams of fiber Fruits Apple (with skin) 1 medium apple 4.4 Banana 1 medium banana 3.1 Oranges 1 orange 3.1 Prunes 1 cup, pitted 12.4 Juices Apple, unsweetened, with added ascorbic acid 1 cup 0.5 Grapefruit, white, canned, sweetened 1 cup 0.2 Grape, unsweetened, with added ascorbic acid 1 cup 0.5 Stratton 1 cup 0.7 Vegetables Cooked Green beans 1 cup 4.0 Carrots 1/2 cup sliced 2.3 Peas 1 cup 8.8 Potato (baked, with skin) 1 medium potato 3.8 Raw [place] (with peel) 1 cucumber 1.5 Lettuce 1 cup shredded 0.5 Tomato 1 medium tomato 1.5 Spinach 1 cup 0.7 Legumes Baked beans, canned, no salt added 1 cup 13.9 Kidney beans, canned 1 cup 13.6 Casas beans, canned 1 cup 11.6 Lentils, boiled 1 cup 15.6 Breads, pastas, flours Bran muffins 1 medium muffin 5.2 Oatmeal, cooked 1 cup 4.0 White bread 1 slice 0.6 Whole-wheat bread 1 slice 1.9 Pasta and rice, cooked Macaroni 1 cup 2.5 Rice, brown 1 cup 3.5 Rice, white 1 cup 0.6 Spaghetti (regular) 1 cup 2.5 Nuts Almonds 1/2 cup 8.7 Peanuts 1/2 cup 7.9 To learn how much fiber and other nutrients are in different foods, visit the [place] Department of Agriculture (USDA) National Nutrient Database at: http://www.nal.usda.gov/fnic/foodcomp/search/. Created using data from the USDA National Nutrient Database for Standard Reference. Available at http://www.nal.usda.gov/fnic/foodcomp/search/. Graphic 57629 Version 4.0 documented in this encounter Progress Notes * Maria T Serrano NP - 12/20/2022 9:40 AM CDT Images from the original note were not included. GASTROENTEROLOGY CONSULT 12/20/2022 12:21 PM Reason for Visit: Follow Up (Crohn's ) History of Present Illness: Paige Zavaleta is a 27-year-old female who presents today to discuss possible adverse effects r/t Remicade infusion. Has a h/o Ulcerative Colitis currently controlled with azathioprine 50 mg daily and Infiximab 5 mg/kg IV every 8 weeks. Has failed Humira in the past. Last colonoscopy was in 2020 which noted severe pancolitis, however symptoms have been controlled on current management. Denies abdominal pain, diarrhea or BRBPR. Has a small BM daily, stool is soft but she does not feel complete defecation with a BM. Was recommended to try Miralax however concerned this will trigger her UC. Appetite appropriate.No unexplained weight loss. Was tx for a sinusitis in Mar and Apr. Symptoms first developed one week post Remicade infusion. Main complaint was nasal congestion with a PND which does not respond to OTC decongestants. No fevers or productive cough. Was seen at an UC both times and prescribed antibiotics and steroids which resolved the symptoms. Concerned that the sinusitis was triggered by her Remicade inj. Has not had any further symptoms for past 6-7 months. No current URI complaints. Recent CBC and CMP were unremarkable, TB negative. No hx of hepatitis infection. No prior blood transfusions NSAID/Anticoagulant use: None EGD: None Colonoscopy: 08/24/[address] Johns 06/28/[address] Johns (initial dx of Crohn's) Past Medical History: Diagnosis Date Seizures (CMS/HCC) Ulcerative colitis (CMS/HCC) 06/28/2019 Dr. Omar Johns moderate to severe reed ulcerative colitis Past Surgical History: Procedure Laterality Date COLONOSCOPY N/A 06/28/2019 COLONOSCOPY WITH BIOPSIES performed by Omar Johns MD at [facility] OR ulcerative pancolitis COLONOSCOPY N/A 08/24/2020 COLONOSCOPY WITH COLON BIOPSY VIA LARGE COLD FORCEP AND STOOL SAMPLE FOR CDIFF performed by Omar Hawk MD at [facility] GI TONSILLECTOMY No family history on file. Social History Tobacco Use Smoking status: Never Smokeless tobacco: Never Vaping Use Vaping Use: Never used Substance Use Topics Alcohol use: Yes Comment: occasional Drug use: No Outpatient Medications Marked as Taking for the 12/20/22 encounter (Office Visit) with Maria T Serrano NP Medication Sig Dispense Refill azaTHIOprine (IMURAN) 50 MG tablet Take 1 tablet (50 mg total) by mouth daily. 90 tablet 3 desogestrel-ethinyl estradiol (AZURETTE) 0.15-0.02/0.01 MG (16/10) tablet Take 1 tablet by mouth daily. 84 tablet 1 inFLIXimab-dyyb 100 MG injection Inject 70 mLs (700 mg total) into the vein see administration instructions. 5 mg/kg per dose IV every 8 weeks for 12 months. 7 each 5 montelukast (SINGULAIR) 10 MG tablet TAKE 1 TABLET BY MOUTH AT BEDTIME 90 tablet 2 Review of patient's allergies indicates: No Known Allergies REVIEW OF SYSTEMS: Review of Systems Constitutional: Negative for fatigue and fever. Respiratory: Negative for shortness of breath. Cardiovascular: Negative for leg swelling. Gastrointestinal: Per HPI Musculoskeletal: Negative for joint swelling. Skin: Negative for rash. Neurological: Negative for dizziness and headaches. Psychiatric/Behavioral: The patient is not nervous/anxious. PHYSICAL EXAM: Filed Vitals: 12/20/22 0939 BP: 138/80 Pulse: 88 Resp: 20 Temp: 98.4 ??F (36.9 ??C) TempSrc: Temporal SpO2: 99% Weight: (!) 147.4 kg (325 lb) Height: 5' 10.5 (1.791 m) Wt Readings from Last 1 Encounters: 12/20/22 (!) 147.4 kg (325 lb) Physical Exam Vitals reviewed. Constitutional: Appearance: Normal [...] Humiria Assessment 1. Ulcerative pancolitis without complication (CMS/[facility], [facility]) Recommendations/Plan: UC controlled with current medication management. Patient tolerates infusions well. Sinusitis infection last Nov and Dec do not seem to be due to an adverse effect of Remicade and patient has tolerated subsequent infusions well without any URI. Discussed infection prevention, especially during cold/flu season such as maintaining good hand hygiene and wearing a mask in crowded areas if there is a flu or Covid outbreak. Recommend vaccine compliance Recommend increasing fiber intake gradually by diet and/or addition of powdered fiber supplement toa goal of 25-30 grams/day and to increase water intake to a goal of 60-80 ozs of water/day. Start with 1 dose daily for the first week then 2 doses daily for the second week then increase to 3 doses daily as tolerated. Handouts given to patient. All questions answered Next screening colonoscopy due in 2027 F/U annually or as needed Risks/Benefits/Options: Risks, [...] this encounter. Maria T Serrano NP Gastroenterology Cosigned by Omar Johns MD at 04/10/2023 6:04 PM MEDIA PRODUCER A PRODUCER documented in this encounter Plan of Treatment Upcoming Encounters Date Type Department Care Team (Late st Contact Info) Description 08/21/2024 4:00 PM CDT Office Visit [facility] Medical Group Family Medicine - [place] [phone] Charla Campos PA-C [address] [place] [address] documented as of this encounter Visit Diagnoses Diagnosis Ulcerative pancolitis without complication (CMS/HCC HHS/HCC)- Primary documented in this encounter Additional Health Concerns Assessment Noted Time PHQ-9 Depression Total Score: 3 07/30/19 22 1:18 PM MEDIA PRODUCER documented as of this encounter
--- OUTSIDE RECORDS SUMMARY | 2024-06-08 07:46 | XMS_ITS | Encounter Summary ---
Author Organization [facility] Address [address] [place] [address]. [place] [address] [place] [address] Care Team Providers Care Land Surveying Survey Worker Name Role Phone Unavailable Primary Care Provider Unavailabl e Reason for Visit * Reason Onset Date Comments Lab Order 11/07/2022 Encounter Details Date Type Department Care Team (Late st Contact Info) Description 11/07/2022 Telephone [facility] Medical Group Multispecialty Care - [facility] [address] [facility], [address] [place] [address] Seble Blsis NP [address] [facility] [place] [address] Lab Order Social History Tobacco Use Types Packs/Day Years [...] as of this encounter Progress Notes * Seble Bliss NP - 11/07/2022 12:07 PM CDT Please call and inform patient that she has blood work performed due to being on her IBD medication. I will extend these for an additional 2 months for her to accomplish this however these are very important to know that she is able to tolerate the medication well please reinforce this importance to patient. She will need to fast from midnight on in order to get the blood work done. She does havea TV, CMP, and CBC test pending. Patient does not have a MyChart actively in use. Thank you, Seble KEITH NP documented in this encounter Plan of Treatment Upcoming Encounters Date Type Department Care Team (Late st Contact Info) Description 08/21/2024 4:00 PM CDT Office Visit [facility] Medical Group Family Medicine - [place] 100 [place] [phone] Charla Campos PA-C 100 [facility] [place] [address] documented as of this encounter Visit Diagnoses Not on filedocumented in this encounter Additional Health Concerns Assessment Noted Time PHQ-9 Depression Total Score: 3 07/30/19 22 1:18 PM MORTGAGE ORIGINATOR documented as of this encounter
--- OUTSIDE RECORDS SUMMARY | 2024-06-08 07:46 | XMS_ITS | Encounter Summary ---
Author Organization [facility] Address [address] [place] [address]. [place], [place] [address] [place] [address] Care Team Providers Care Postdoctoral Scientist Name Role Phone Unavailable Primary Care Provider Unavailabl e Encounter Details Date Type Department Care Team (Latest Contact Info) Description 08/17/2022 Scan HEALTH INFO SRVCS Scanned, Doc Med [...] file Not on file Not on file COVID-19 Exposure Response Date Recorded In the last 10 days, have gasper u been in contact with someone who was confirmed or suspected to have Coronavirus/COVID-19? No / Unsure 08/15/2022 2:48 PM CDT documented as of this encounter Plan of Treatment Upcoming Encounters Date Type Department Care Team (Late st Contact Info) Description 08/21/2024 4:00 PM CDT Office Visit [facility] Medical Group Family Medicine - [place] [phone] Charla Campos PA-C [address] [place] [phone] documented as of this encounter Visit Diagnoses Not on filedocumented in this encounter Additional Health Concerns Assessment Noted Time PHQ-9 Depression Total Score: 3 07/30/19 22 1:18 PM FOREST AND CONSERVATION WORKER documented as of this encounter
--- OUTSIDE RECORDS SUMMARY | 2024-06-08 07:46 | XMS_ITS | Encounter Summary ---
Author Organization [facility] Address [facility] [place] [address] [place] [address] Care Team Providers Care Eye Technician Name Role Phone Unavailable Primary Care Provider Unavailabl e Encounter Details Date Type Department Care Team (Late st Contact Info) Description 10/31/2022 Orders Only [facility] Medical Group Multispecialty Care - [facility] [address] [facility], [address] [place] [address] Maria T Serrano NP 3 [facility] [address] [place] [address] Social History Tobacco Use Types Packs/Day Years [...] Description 08/21/2024 4:00 PM CDT Office Visit [facility] Medical Group Family Medicine - [place] 100 [place] [phone] Charla Campos PA-C 100 [facility] [place] [address] documented as of this encounter Visit Diagnoses Not on filedocumented in this encounter Additional Health Concerns Assessment Noted Time PHQ-9 Depression Total Score: 3 07/30/19 22 1:18 PM REGIONAL ADMINISTRATIVE ASSISTANT documented as of this encounter
--- OUTSIDE RECORDS SUMMARY | 2024-06-08 07:46 | XMS_ITS | Encounter Summary ---
Author Organization [facility] Address [address] [place] [address]. [place], [place] [address] [place] [address] Care Team Providers Care Manager Provider Relations Name Role Phone Unavailable Primary Care Provider Unavailabl e Encounter Details Date Type Department Care Team (Latest Contact Info) Description 08/16/2022 Scan HEALTH INFO SRVCS Scanned, Doc Med [...] Description 08/21/2024 4:00 PM CDT Office Visit [facility] Medical Group Family Medicine - [place] [phone] Charla Campos PA-C [address] [place] [phone] documented as of this encounter Visit Diagnoses Not on filedocumented in this encounter Additional Health Concerns Assessment Noted Time PHQ-9 Depression Total Score: 3 07/30/19 22 1:18 PM POLICE STENOGRAPHER documented as of this encounter
--- OUTSIDE RECORDS SUMMARY | 2024-06-08 07:46 | XMS_ITS | Encounter Summary ---
Author Organization [facility] Address [address] [place] [address]. [place], [place] [address] [place] [address] Care Team Providers Care Mobile Heavy Equipment Operator Name Role Phone Unavailable Primary Care Provider Unavailabl e Encounter Details Date Type Department Care Team (Latest Contact Info) Description 08/23/2022 Scan HEALTH INFO SRVCS Scanned, Doc Med [...] [facility] Medical Group Family Medicine - [place] [phone] Charla Campos PA-C [address] [place] [phone] documented as of this encounter Visit Diagnoses Not on filedocumented in this encounter Additional Health Concerns Assessment Noted Time PHQ-9 Depression Total Score: 3 07/30/19 22 1:18 PM RACE RELATIONS PROFESSOR documented as of this encounter
--- OUTSIDE RECORDS SUMMARY | 2024-06-08 07:46 | XMS_ITS | Encounter Summary ---
Author Organization [facility] Address [address] [place] [address]. [place] [address] [place] [address] Care Team Providers Care Assembler Mechanical Ordnance Name Role Phone Unavailable Primary Care Provider Unavailabl e Reason for Visit * Reason Onset Date Comments Orders 08/16/2022 Encounter Details Date Type Department Care Team (Late st Contact Info) Description 08/16/2022 Telephone [facility] Medical Group Multispecialty Care - [facility] [address] [facility], [address] [place] [address] Seble Bliss NP 3 [facility] [place] [address] Orders Social History Tobacco Use Types Packs/Day Years [...] PM CDT documented as of this encounter Progress Notes * Xochitl Escobedo - 08/17/2022 3:47 PM CDT Radha was informed that Inflectra order was faxed. * Senia Brumfield - 08/17/2022 3:12 PM CDT Radha from [facility] called today saying saying that she needs an order stat for her Inflectra . Please call to discuss [phone] * Xochitl Escobedo - 08/16/2022 3:30 PM CDT Order will be faxed. * Priscilla Marshall - 08/16/2022 11:58 AM CDT Radha from [facility] is calling to request new order on this patient since the other one . Call back number [phone] documented in this encounter Plan of Treatment Upcoming Encounters Date Type Department Care Team (Late st Contact Info) Description 08/21/2024 4:00 PM CDT Office Visit [facility] Medical Group Family Medicine - [place] [phone] Charla Campos PA-C [address] [place] [address] documented as of this encounter Visit Diagnoses Not on filedocumented in this encounter Additional Health Concerns Assessment Noted Time PHQ-9 Depression Total Score: 3 07/30/19 22 1:18 PM HAND DRAWER IN documented as of this encounter
--- OUTSIDE RECORDS SUMMARY | 2024-06-08 07:47 | XMS_ITS | Encounter Summary ---
Author Organization [facility] Address [address] [place] [address]. [place], [place] [address] [place] [address] Care Team Providers Care Traveling Missionary Name Role Phone Unavailable Primary Care Provider Unavailabl e Encounter Details Date Type Department Care Team (Latest Contact Info) Description 08/15/2022 Travel Social History Tobacco Use Types Packs/Day [...] Recorded In the last 10 days, have yo u been in contact with someone who was confirmed or suspected to have Coronavirus/COVID-19? No / Unsure 08/15/2022 2:48 PM CDT documented as of this encounter Plan of Treatment Upcoming Encounters Date Type Department Care Team (Late st Contact Info) Description 08/21/2024 4:00 PM CDT Office Visit [facility] Medical Group Family Medicine - [place] 100 [place] [phone] Charla Campos PA-C 100 [place], [place] [phone] documented as of this encounter Visit Diagnoses Not on filedocumented in this encounter Additional Health Concerns Assessment Noted Time PHQ-9 Depression Total Score: 3 07/30/19 22 1:18 PM CORPORATE SAFETY MANAGER documented as of this encounter
--- OUTSIDE RECORDS SUMMARY | 2024-06-08 07:49 | XMS_ITS | Encounter Summary ---
Author Organization [facility] Address [address] [place] [address]. [place], [place] [address] [place] [address] Care Team Providers Care Shipping Hand Name Role Phone Unavailable Primary Care Provider Unavailabl e Encounter Details Date Type Department Care Team (Latest Contact Info) Description 11/16/2021 Scan HEALTH INFO SRVCS Scanned, Documents Social History Tobacco Use Types Packs/Day Years [...] on file 01/2019 PHQ-2 Answer Date Recorded PHQ-2 Score - If the patient scores above 3, please move on to questions 3-9 3 07/29/2021 Comments No Sex and Gender Information Value [...] Description 08/21/2024 4:00 PM CDT Office Visit [facility] Medical Group Family Medicine - [place] 100 [place] [phone] Charla Campos PA-C 100 [place] [address] documented as of this encounter Visit Diagnoses Not on filedocumented in this encounter Additional Health Concerns Assessment Noted Time PHQ-9 Depression Total Score: 3 07/30/19 22 1:18 PM GREENKEEPER documented as of this encounter
--- OUTSIDE RECORDS SUMMARY | 2024-06-08 07:49 | XMS_ITS | Encounter Summary ---
Author Organization [facility] Address [facility] [place] [address] [place] [address] Care Team Providers Care Pattern Layout Worker Name Role Phone Unavailable Primary Care Provider Unavailabl e Encounter Details Date Type Department Care Team (Late st Contact Info) Description 10/14/2021 Orders Only [facility] Medical Group Multispecialty Care - [facility] 3 [facility], [address] [place] [phone] Seble Bliss, JORI 3 [facility]. [address] [place] [address] Social History Tobacco Use Types Packs/Day Years [...] MEDICAL CENTER Medical Group Family Medicine - [place] 100 [place] [address] Charla Campos PA-C [address] [place] [address] documented as of this encounter Visit Diagnoses Not on filedocumented in this encounter Additional Health Concerns Assessment Noted Time PHQ-9 Depression Total Score: 3 07/30/19 22 1:18 PM MANAGER WIND documented as of this encounter
--- OUTSIDE RECORDS SUMMARY | 2024-06-08 07:49 | XMS_ITS | Encounter Summary ---
Author Organization [facility] Address [facility] [place] [address] [place] [address] Care Team Providers Care Poultry Packer Name Role Phone Unavailable Primary Care Provider Unavailabl e Encounter Details Date Type Department Care Team (Late st Contact Info) Description 10/11/2021 Orders Only [facility] Medical Group Multispecialty Care - [facility] 3 [facility], [address] [place] [phone] Seble Bliss, JORI 3 [facility]. [address] [place] [address] Social History Tobacco Use Types Packs/Day Years [...] Description 08/21/2024 4:00 PM CDT Office Visit [facility] Medical Group Family Medicine - [place] 100 [place] [address] Charla Campos PA-C [address] [place] [address] documented as of this encounter Visit Diagnoses Not on filedocumented in this encounter Additional Health Concerns Assessment Noted Time PHQ-9 Depression Total Score: 3 07/30/19 22 1:18 PM INFORMATION TECHNOLOGY TECHNICIAN documented as of this encounter
--- OUTSIDE RECORDS SUMMARY | 2024-06-08 07:49 | XMS_ITS | Encounter Summary ---
Author Organization [facility] Address [address] [place] [address]. [place], [place] [address] [place] [address] Care Team Providers Care Nonprofit Fundraiser Name Role Phone Unavailable Primary Care Provider Unavailabl e Reason for Visit * Reason Comments Physical annual Encounter Details Date Type Department Care Team ([facility] st Contact Info) Description 05/17/2022 4:15 PM HEALTH CARE LAW SPECIALIST Office Visit [facility] [address] [facility] [address] [place] [address] Monik Fonseca MD [address] [facility] [address] [place] [address] Physical (annual) Social History Tobacco Use Types Packs/Day Years [...] Sign Reading Time Taken Comments Blood Pressure 108/80 05/17/2022 4:16 PM HEALTH CARE LAW SPECIALIST Pulse 100 05/17/2022 4:16 PM HEALTH CARE LAW SPECIALIST Temperature - - Respiratory Rate - - Oxygen Saturation - - Inhaled Oxygen Concentration - - Weight 140.6 kg (310 lb) 05/17/2022 4:16 PM HEALTH CARE LAW SPECIALIST Height 179.1 cm (5' 10.5 ) 05/17/2022 4:16 PM CS T Body Mass Index 43.85 05/17/2022 4:16 PM HEALTH CARE LAW SPECIALIST documented in this encounter Progress Notes * Monik Fonseca MD - 05/17/2022 4:15 PM CST Reason for Visit: Physical (annual) History of Present Illness: HEALTH MAINTENANCE The patient is being seen for a health maintenance evaluation. GENERAL HEALTH The patient's health since the last visit is described as good. HPI ROS: Review of Systems Constitutional: Negative for fever. HENT: Negative for ear pain. Eyes: Negative for pain. Respiratory: Negative for cough and shortness of breath. Cardiovascular: Negative for chest pain, palpitations and leg swelling. Gastrointestinal: Negative for diarrhea, nausea and vomiting. Genitourinary: Negative for dysuria. Musculoskeletal: Negative for myalgias. Neurological: Negative for dizziness. Psychiatric/Behavioral: Negative for depression. Medications: Current Outpatient Medications: ??? azaTHIOprine (IMURAN) 50 MG tablet, TAKE 1 TABLET(50 MG) BY MOUTH DAILY, Disp: 90 tablet, Rfl: 1 ??? cetirizine 10 MG tablet, Take 10 mg by mouth daily., Disp: , Rfl: ??? desogestrel-ethinyl estradiol (AZURETTE) 0.15-0.02/0.01 MG (16/10) tablet, Take 1 tablet by mouth daily., Disp: 84 tablet, Rfl: 1 ??? dicyclomine 20 MG tablet, Take 1 tablet (20 mg total) by mouth every 6 (six) hours., Disp: 120 tablet, Rfl: 1 ??? guaiFENesin ER 600 MG 12 hr tablet, Take 1,200 mg by mouth 2 (two) times daily., Disp: , Rfl: ??? inFLIXimab-dyyb 100 MG injection, Inject 70 mLs (700 mg total) into the vein see administrationinstructions. 5 mg/kg per dose IV every 8 weeks for 12 months., Disp: 7 each, Rfl: 5 ??? montelukast (SINGULAIR) 10 MG tablet, TAKE 1 TABLET BY MOUTH AT BEDTIME, Disp: 90 tablet, Rfl: 0 Immunization History Administered Date(s) Administered ??? Hepatitis A (Havrix 1440 El.U) 07/15/2019 ??? Hepatitis B(Engerix B Adult) 07/15/2019 ??? Influenza Adult (Generic) 02/17/2022 ??? PFIZER COVID-19 (ORIGINAL FORMULATION, PURPLE CAP), MRNA, LNP-S, PF, 30 MCG/0.3 ML DOSE 02/17/2022 No Known Allergies Past Medical History: Diagnosis Date ??? Seizures (CMS/HCC) ??? Ulcerative colitis (CMS/HCC) 06/28/2019 Dr. Omar Johns moderate to severe reed ulcerative colitis Past Surgical History: Procedure Laterality Date ??? COLONOSCOPY N/A 06/28/2019 COLONOSCOPY WITH BIOPSIES performed by Omar Johns MD at [facility] OR ulcerative pancolitis ??? COLONOSCOPY N/A 08/24/2020 COLONOSCOPY WITH COLON BIOPSY VIA LARGE COLD FORCEP AND STOOL SAMPLE FOR CDIFF performed by Omar Hawk MD at [facility] GI ??? TONSILLECTOMY Social History Socioeconomic History ??? Marital status: Single Occupational History ??? 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 Smoking status: Never ??? Smokeless tobacco: Never Vaping Use ??? Vaping Use: Never used Substance and Sexual Activity ??? Alcohol use: Yes Comment: occasional ??? Drug use: No No family history on file. No family status information on file. Physical Exam: Physical Exam Constitutional: She appears well-developed. Cardiovascular: Normal rate and regular rhythm. Pulmonary/Chest: Effort normal and breath sounds normal. Abdominal: Soft. Musculoskeletal: Normal range of motion. Neurological: She is alert. Skin: Skin is warm and dry. Filed Vitals: 05/17/22 1616 BP: 108/80 Pulse: 100 Weight: (!) 140.6 kg (310 lb) Height: 5' 10.5 (1.791 m) Body mass index is 43.85 kg/m??. Assessment: 1. Ulcerative pancolitis without complication (CMS/HCC) 2. Routine general medical examination at a health care facility 3. Morbid obesity (CMS/HCC) Plan: The primary encounter diagnosis was Ulcerative pancolitis without complication (CMS/HCC). Diagnosesof Routine general medical examination at a health care facility and Morbid obesity (CMS/HCC) were also pertinent to this visit. - Comply with suggestions for healthy lifestyle The primary encounter diagnosis was Ulcerative pancolitis without complication (CMS/HCC). Diagnosesof Routine general medical examination at a health care facility and Morbid obesity (CMS/HCC) were also pertinent to this visit. - All conditions are stable and compensated (except those noted above) Diagnoses and all orders for this visit: Ulcerative pancolitis without complication (CMS/HCC) Routine general medical examination at a health care facility Morbid obesity (CMS/HCC) Rey states she is doing relatively well. She believes her UC is under better control. However, shetells me that she tends to eat more when it is under better control. We discussed diet and exercise. Reviewed and updated this visit by provider: No follow-ups on file. MONIK FONSECA MD Referring Provider: No ref. provider found PCP: MONIK FONSECA MD TH CARE LAW SPECIALIST documented in this encounter Plan of Treatment Upcoming Encounters Date Type Department Care Team (Late st Contact Info) Description 08/21/2024 4:00 PM CDT Office Visit [facility] Medical Group Family Medicine - [place] [address] [place] [phone] Charla Campos PA-C [address] [place] [address] documented as of this encounter Visit Diagnoses Diagnosis Ulcerative pancolitis without complication ([facility])- Primary Routine general medical examination at a health care facility Morbid obesity ([facility]) Morbid obesity documented in this encounter Additional Health Concerns Assessment Noted Time PHQ-9 Depression Total Score: 3 07/30/19 22 1:18 PM HEALTH CARE LAW SPECIALIST documented as of this encounter
--- OUTSIDE RECORDS SUMMARY | 2024-06-08 07:49 | XMS_ITS | Encounter Summary ---
Author Organization [facility] Address [facility], [id number] [facility] [place] [address] [place] [address] Care Team Providers Care Rotor Pilot Name Role Phone Unavailable Primary Care Provider Unavailabl e Encounter Details Date Type Department Care Team (Late st Contact Info) Description 10/12/2021 Orders Only [facility] Medical Group Multispecialty Care - [facility] [address] [facility], [address] [place] [phone] Seble Bliss, JORI 3 [facility]. [address] [place] [address] Social History Tobacco Use Types Packs/Day Years [...] Description 08/21/2024 4:00 PM CDT Office Visit [facility] Medical Group Family Medicine - [place] 100 [place] [address] Charla Campos PA-C [address] [place] [address] documented as of this encounter Visit Diagnoses Not on filedocumented in this encounter Additional Health Concerns Assessment Noted Time PHQ-9 Depression Total Score: 3 07/30/19 22 1:18 PM ELECTRIC METER INSTALLER documented as of this encounter
--- OUTSIDE RECORDS SUMMARY | 2024-06-08 07:49 | XMS_ITS | Encounter Summary ---
Author Organization [facility] Address [address] [place] [address]. [place], [place] [address] [place] [address] Care Team Providers Care Rod Cup Filler Name Role Phone Unavailable Primary Care Provider Unavailabl e Encounter Details Date Type Department Care Team (Latest Contact Info) Description 09/18/2021 Scan HEALTH INFO SRVCS Scanned, Documents Social [...] Description 08/21/2024 4:00 PM CDT Office Visit [facility] Medical Group Family Medicine - [place] 100 [place] [phone] Charla Campos PA-C 100 [place] [address] documented as of this encounter Visit Diagnoses Not on filedocumented in this encounter Additional Health Concerns Assessment Noted Time PHQ-9 Depression Total Score: 3 07/30/19 22 1:18 PM BINDERY MANAGER documented as of this encounter
--- OUTSIDE RECORDS SUMMARY | 2024-06-08 07:49 | XMS_ITS | Encounter Summary ---
Author Organization [facility] Address [address] [place] [address]. [place], [place] [address] [place] [address] Care Team Providers Care Concrete Buster Operator Name Role Phone Unavailable Primary Care Provider Unavailabl e Encounter Details Date Type Department Care Team (Latest Contact Info) Description 06/28/2022 Scan HEALTH INFO SRVCS Scanned, Doc Med [...] [facility] Medical Group Family Medicine - [place] 100 [place] [phone] Charla Campos PA-C 100 [place] [address] documented as of this encounter Visit Diagnoses Not on filedocumented in this encounter Additional Health Concerns Assessment Noted Time PHQ-9 Depression Total Score: 3 07/30/19 22 1:18 PM APPLICATIONS ARCHITECT documented as of this encounter
--- OUTSIDE RECORDS SUMMARY | 2024-06-08 07:49 | XMS_ITS | Encounter Summary ---
Author Organization [facility] Address [address] [place] [address]. [place], [place] [address] [place] [address] Care Team Providers Care Professional Engineer Name Role Phone Unavailable Primary Care Provider Unavailabl e Encounter Details Date Type Department Care Team (Latest Contact Info) Description 01/11/2022 Scan HEALTH INFO SRVCS Scanned, Documents Social [...] Description 08/21/2024 4:00 PM CDT Office Visit [facility] Medical Group Family Medicine - [place] 100 [place] [phone] Charla Campos PA-C 100 [place] [address] documented as of this encounter Visit Diagnoses Not on filedocumented in this encounter Additional Health Concerns Assessment Noted Time PHQ-9 Depression Total Score: 3 07/30/19 22 1:18 PM GASOLINE PUMP INSTALLER documented as of this encounter
--- OUTSIDE RECORDS SUMMARY | 2024-06-08 07:49 | XMS_ITS | Encounter Summary ---
Author Organization [facility] Address [facility] [place] [address] [place] [address] Care Team Providers Care Timber Sprinkler Name Role Phone Unavailable Primary Care Provider Unavailabl e Encounter Details Date Type Department Care Team (Late st Contact Info) Description 10/10/2021 Orders Only [facility] Multispecialty Care - [facility] 3 [facility], [address] [place] [phone] Seble Bliss, JORI 3 [facility]. [address] [place] [address] Social History Tobacco Use Types Packs/Day Years [...] Description 08/21/2024 4:00 PM CDT Office Visit [facility] Family Medicine - [place] [address] [place] [address] Charla Campos PA-C [address] [place] [address] documented as of this encounter Visit Diagnoses Not on filedocumented in this encounter Additional Health Concerns Assessment Noted Time PHQ-9 Depression Total Score: 3 07/30/19 22 1:18 PM RENAL CASE MANAGER documented as of this encounter
--- OUTSIDE RECORDS SUMMARY | 2024-06-08 07:49 | XMS_ITS | Encounter Summary ---
Author Organization [facility] Address [facility] [place] [address] [place] [address] Care Team Providers Care Automotive Service Management Teacher Name Role Phone Unavailable Primary Care Provider Unavailabl e Reason for Visit * Reason Onset Date Comments Medication 11/17/2021 Encounter Details Date Type Department Care Team (Late st Contact Info) Description 11/17/2021 Telephone [facility] Mult[facility]ialty Care - [facility] 3 [facility], [address] [place] [address] Seble Bliss NP 3 [facility]. [address] [place] [address] Medication Social History Tobacco Use Types Packs/Day Years [...] as of this encounter Progress Notes * Ricarda Serrano NP - 11/17/2021 11:08 AM CDTAddended by: RICARDA SERRANO on: 11/17/2021 11:08 AM Modules accepted: Orders * Ricarda Serrano NP - 11/17/2021 11:08 AM CDT Prescription sent to appropriate pharmacy * Caridad Azul - 11/17/2021 10:16 AM CDT She is leaving to go out of town [place] am. She doesn't think she has enough to last, * Caridad Azul - 11/17/2021 10:13 AM CDT Paige called today saying she is changing to [facility] in [facility]. She needs her agathioprine sent to [facility] for a 90 Day supply. Please call when completed. documented in this encounter Plan of Treatment Upcoming Encounters Date Type Department Care Team (Late st Contact Info) Description 08/21/2024 4:00 PM CDT Office Visit [facility] Family Medicine - [place] [address] [place] [phone] Charla Campos PA-C 100 [place] [address] documented as of this encounter Visit Diagnoses Diagnosis Ulcerative pancolitis without complication (CMS/HCC HHS/HCC) documented in this encounter Additional Health Concerns Assessment Noted Time PHQ-9 Depression Total Score: 3 07/30/19 22 1:18 PM R&D ENGINEER documented as of this encounter
--- OUTSIDE RECORDS SUMMARY | 2024-06-08 07:50 | XMS_ITS | Encounter Summary ---
Author Organization [facility] Address [address] [place] [address]. [place] [address] [place] [address] Care Team Providers Care Turn Down Worker Name Role Phone Unavailable Primary Care Provider Unavailabl e Encounter Details Date Type Department Care Team (Late st Contact Info) Description 07/27/2021 Orders Only [facility] [place], [place] [address] Seble Bliss NP 3 [facility]. [address] [place], [place] [address] Social History Tobacco Use Types Packs/Day Years [...] suspected to have Coronavirus/COVID-19? No / Unsure 07/29/2021 9:45 AM RECAPPER documented as of this encounter Plan of Treatment Upcoming Encounters Date Type Department Care Team (Late st Contact Info) Description 08/21/2024 4:00 PM CDT Office Visit [facility] Family Medicine - [place] [phone] Charla Campos PASariah [address] [place] [address] documented as of this encounter Visit Diagnoses Not on filedocumented in this encounter
--- OUTSIDE RECORDS SUMMARY | 2024-06-08 07:50 | XMS_ITS | Encounter Summary ---
Author Organization [facility] Address [address] [place] [address]. [place] [address] [place] [address] Care Team Providers Care Sod Farmer Name Role Phone Unavailable Primary Care Provider Unavailabl e Encounter Details Date Type Department Care Team (Late st Contact Info) Description 07/27/[address] [facility] Laboratory [place], [place] [address] Seble Bliss NP 3 [facility]. [address] [place], [place] [address] Social History Tobacco Use Types Packs/Day Years [...] of Binge Drinking Not on file 01/2019 Comments No Sex and Gender Information Value [...] suspected to have Coronavirus/COVID-19? No / Unsure 07/27/2021 6:56 AM FUEL CELL DESIGNER documented as of this encounter Plan of Treatment Upcoming Encounters Date Type Department Care Team (Late st Contact Info) Description 08/21/2024 4:00 PM CDT Office Visit [facility] Family Medicine - [place] [address] [place] [phone] Charla Campos PA-C [address] [place] [phone] documented as of this encounter Visit Diagnoses Diagnosis Ulcerative chronic pancolitis with rectal bleeding ([facility]/HCC [facility])- Primary Sherrill ulcerative (chronic) colitis documented in this encounter
--- OUTSIDE RECORDS SUMMARY | 2024-06-08 07:50 | XMS_ITS | Encounter Summary ---
Author Organization [facility] Address [address] [place] [address]. [place], [place] [address] [place] [address] Care Team Providers Care Live Source Operator Name Role Phone Unavailable Primary Care Provider Unavailabl e Encounter Details Date Type Department Care Team (Latest Contact Info) Description 07/27/2021 Travel Social History Tobacco Use Types Packs/Day [...] Coronavirus/COVID-19? No / Unsure 07/27/2021 6:56 AM PROFESSIONAL DEVELOPMENT DIRECTOR documented as of this encounter Plan of Treatment Upcoming Encounters Date Type Department Care Team (Late st Contact Info) Description 08/21/2024 4:00 PM CDT Office Visit [facility] Family Medicine - [place] [phone] Charla Campos PA-C [address] [place] [address] documented as of this encounter Visit Diagnoses Not on filedocumented in this encounter
--- OUTSIDE RECORDS SUMMARY | 2024-06-08 07:50 | XMS_ITS | Encounter Summary ---
Author Organization [facility] Address [address] [place] [address]. [place], [place] [address] [place] [address] Care Team Providers Care Professional Sports Scout Name Role Phone Unavailable Primary Care Provider Unavailabl e Encounter Details Date Type Department Care Team (Latest Contact Info) Description 08/06/2021 Scan HEALTH INFO SRVCS Scanned, Documents Social [...] Coronavirus/COVID-19? No / Unsure 07/29/2021 9:45 AM VOCAL PERFORMER documented as of this encounter Plan of Treatment Upcoming Encounters Date Type Department Care Team (Late st Contact Info) Description 08/21/2024 4:00 PM CDT Office Visit [facility] Family Medicine - [place] [phone] Charla Campos PA-C [address] [place] [address] documented as of this encounter Visit Diagnoses Not on filedocumented in this encounter Additional Health Concerns Assessment Noted Time PHQ-9 Depression Total Score: 3 07/30/19 22 1:18 PM VOCAL PERFORMER documented as of this encounter
--- OUTSIDE RECORDS SUMMARY | 2024-06-08 07:50 | XMS_ITS | Encounter Summary ---
Author Organization [facility] Address [facility] [place] [address] [place] [address] Care Team Providers Care Furnace Door Tender Name Role Phone Unavailable Primary Care Provider Unavailabl e Reason for Visit * Reason Onset Date Comments Information 07/15/2021 Encounter Details Date Type Department Care Team (Late st Contact Info) Description 07/15/2021 Telephone [facility] Multispecialty Care - [facility] 3 [facility], [address] [place] [address] Seble Bliss NP 3 [facility]. [address] [place], [place] [address] Information Social History Tobacco Use Types Packs/Day [...] Progress Notes * Seble Bliss NP - 07/15/2021 2:18 PM CST Received a call from [facility] requesting the patient is to have TB results and total core hepatitis B antibody test. Current lab work was not adequate for patient to receive infusion there. They are also requesting infusion be sent over on the appropriate infusion form. She is to send our form back so I can make modifications and refax it back to her. I then called patient and informed her that the results would be needed. She is unsure whether she can have that done at [facility] I told her I would send the lab orders over to her via mail she will have that done at wherever she has coverage at. KMAKER documented in this encounter Plan of Treatment Upcoming Encounters Date Type Department Care Team (Late st Contact Info) Description 08/21/2024 4:00 PM CDT Office Visit [facility] Family Medicine - [place] [phone] Charla Campos PA-C [address] [place] [address] [address] documented as of this encounter Results * QUANTIFERON-TB GOLD PLUS, 4T (07/27/2021 7:15 AM CLOCKMAKER) QUANTIFERON TB PLUS 4T NEGATIVE NEGATIVE 07/31/2021 9:45 PM CLOCKMAKER [facility] Comment: Negative test result. M. tuberculosis complex infection unlikely. NIL (TB) 0.02 IU/mL 07/31/2021 9:45 PM CLOCKMAKER [facility] MITOGEN NIL >10.00 IU/mL 07/31/2021 9:45 PM CLOCKMAKER [facility] TB1 AG MINUS NIL <0.00 IU/mL 08/01/19 9:45 PM CLOCKMAKER [facility] TB2 AG MINUS NIL <0.00 IU/mL 08/01/19 9:45 PM CLOCKMAKER [facility] Comment: The Nil tube value reflects the background interferon gamma immune response of the patient's blood sample. This value has been subtracted from the patient's displayed TB and Mitogen results. Lower than expected results with the Mitogen tube prevent false-negative Quantiferon readings by detect- ing a patient with a potential immune suppressive condition and/or suboptimal pre-analytical specimen handling. The TB1 Antigen tube is coated with the M. tuberculosis-specific antigens designed to elicit responses from TB antigen primed CD4+ helper T-lymphocytes. The TB2 Antigen tube is coated with the M. tuberculosis-specific antigens designed to elicit responses from TB antigen primed CD4+ helper and CD8+ cytotoxic T-lymphocytes. For additional information, please refer to http://education.Buddytruk/faq/WPM235 (This link is being provided for information/ educational purposes only.) Test Performed by [facility], [address] [place] [address] José Antonio Mart M.D., Ph.D., Director of Laboratories , [facility] [id number] 07/27/2021 7:15 AM CLOCKMAKER us Seble Bliss NP LABORATORY Final Result [facility] [place] , documented in this encounter Visit Diagnoses Diagnosis Ulcerative pancolitis with rectal bleeding (CMS/HCC HHS/HCC)- Primary documented in this encounter
--- OUTSIDE RECORDS SUMMARY | 2024-06-08 07:50 | XMS_ITS | Encounter Summary ---
Author Organization [facility] Address [address] [place] [address]. [place] [address] [place] [address] Care Team Providers Care Livestock Trucker Name Role Phone Unavailable Primary Care Provider Unavailabl e Reason for Visit * Reason Onset Date Comments Question 07/26/2021 Encounter Details Date Type Department Care Team (Late st Contact Info) Description 07/26/[address] [facility] Multispecialty Care - [facility] 3 [facility], [address] [place] [address] Omar Johns MD 3 [facility] [address] [place] [address] Question Social History Tobacco Use Types Packs/Day [...] Coronavirus/COVID-19? No / Unsure 07/27/2021 6:56 AM SUPERVISOR BLEACH PLANT documented as of this encounter Progress Notes * Xochitl Escobedo - 07/29/2021 8:53 AM CST Attempted to contact [facility] [place] no answer and mailbox is full RVISOR BLEACH PLANT * Xochitl Escobedo - 07/27/2021 9:01 AM CST [facility]ed to contact [facility] voicemail is full. RVISOR BLEACH PLANT * Xochitl Escobedo - 07/26/2021 12:55 PM CST Attempted to contact Brissa with [facility] no answer. RVISOR BLEACH PLANT * Seble Bliss NP - 07/26/2021 8:37 AM CST Called [facility] as requested. There boxes. Not able to leave a message. Please return the call if you are able to get a hold of the lab. I have no idea whether they used 1 or 4 tubes to collect the TB testing however it needs to be done appropriately. With accurate results I am not sure what the protocol is as I am not exactly sure how to answer the question. If you are able to get a hold of them please forward me the phone. RVISOR BLEACH PLANT * Araceli Sinclair - 07/26/2021 7:39 AM CST Brissa from [facility] called today wanting to know if there is anyway they can run a 1 tube quantiferium test instead of the 4 tubes. Please call Brissa to follow up [phone] RVISOR BLEACH PLANT documented in this encounter Plan of Treatment Upcoming Encounters Date Type Department Care Team (Late st Contact Info) Description 08/21/2024 4:00 PM CDT Office Visit [facility] Family Medicine - [place] [address] [place] [phone] Charla Campos PA-C [address] [place] [phone] documented as of this encounter Visit Diagnoses Not on filedocumented in this encounter
--- OUTSIDE RECORDS SUMMARY | 2024-06-08 07:50 | XMS_ITS | Encounter Summary ---
Author Organization [facility] Address [facility]6 [facility] [place] [address] [place] [address] Care Team Providers Care Business Excellence Leader Name Role Phone Unavailable Primary Care Provider Unavailabl e Reason for Visit * Reason Onset Date Comments Appointment Request 06/28/2021 Encounter Details Date Type Department Care Team (Late st Contact Info) Description 06/28/2021 Telephone [facility] Multispecialty Care - [address], [address] [place] [address] Omar Johns MD 3 [facility] [address] [place] [address] Appointment Request Social History Tobacco Use Types [...] as of this encounter Progress Notes * Araceli Sinclair - 06/28/2021 12:31 PM CST Paige was returning your call and she would like to know when seble wanted to see her and why. Please call patient to f/u NG LINE INSPECTOR * Xochitl Escobedo - 06/28/2021 11:43 AM CST LVM for pt to give the office a call to schedule an appt. Per Seble patient is due for an office visit NG LINE INSPECTOR documented in this encounter Plan of Treatment Upcoming Encounters Date Type Department Care Team (Late st Contact Info) Description 08/21/2024 4:00 PM CDT Office Visit [facility] Family Medicine - [place] [phone] Charla Campos PA-C [address] [place] [address] documented as of this encounter Visit Diagnoses Not on filedocumented in this encounter
--- OUTSIDE RECORDS SUMMARY | 2024-06-08 07:50 | XMS_ITS | Encounter Summary ---
Author Organization [facility] Address [address] [place] [address]. [place] [address] [place] [address] Care Team Providers Care Flat Sheet Maker Name Role Phone Unavailable Primary Care Provider Unavailabl e Reason for Visit * Reason Comments Infusion Therapy * Injection (Routine) - Pending Review Specialty Diagnoses / Procedures Referred By Yodit t Referred To Contact [facility] Infusion Therapy Diagnoses K51.0 Procedures INFLIXIMAB-DYYB 10MG IV SOLR (INFLECTRA) INTRAVENOUS INFUSION FOR THERAPY UP TO 1HR INTRAVENOUS INFUSION FOR THERAPY EA ADDL HR INFUSION [facility] [place] [address] Phone: tel: fax: [facility] [place] [address] Phone: tel: fax: Referral ID Status Reason Start Date Expiration Date V isits Requested Visits Authorized [id number] Pending Review 09/23/2020 15 15 Encounter Details Date Type Department Care Team (Late st Contact Info) Description 07/21/2021 8:00 AM PROGRAM MANAGER RN Treatment [facility] [place], [place] [address] Omar Johns MD [address] [place] [phone] Infusion Therapy Social History Tobacco Use Types Packs/Day Years [...] suspected to have Coronavirus/COVID-19? No / Unsure 07/21/2021 7:18 AM PROGRAM MANAGER RN documented as of this encounter Last Filed Vital Signs Vital Sign Reading Time Taken Comments Blood Pressure 125/85 07/21/2021 11:00 AM PROGRAM MANAGER RN Pulse 88 07/21/2021 11:00 AM PROGRAM MANAGER RN Temperature 36.7 ??C (98 ??F) 07/21/2021 8:54 AM PROGRAM MANAGER RN Respiratory Rate 20 07/21/2021 11:00 AM PROGRAM MANAGER RN Oxygen Saturation 99% 07/21/2021 11:00 AM PROGRAM MANAGER RN Inhaled Oxygen Concentration - - Weight 125.6 kg (277 lb) 07/21/2021 8:00 AM PROGRAM MANAGER RN Height 179.1 cm (5' 10.5 ) 07/21/2021 8:00 AM CS T Body Mass Index 39.18 07/21/2021 8:00 AM PROGRAM MANAGER RN documented in this encounter Progress Notes * Carly Moseley RN - 07/21/2021 8:00 AM CST Patient tolerated infusion well with out complications. Patient did not have a follow up appointment made due to the fact [place] [facility]. RAM MANAGER RN documented in this encounter Plan of Treatment Upcoming Encounters Date Type Department Care Team (Late st Contact Info) Description 08/21/2024 4:00 PM CDT Office Visit [facility] Medical Group Family Medicine - [place] 100 [place] [address] Charla Campos PA-C 100 [place], [place] [phone] documented as of this encounter Visit Diagnoses Diagnosis Ulcerative pancolitis without complication (CMS/HCC [facility])- Primary documented in this encounter Administered Medications Inactive Administered Medications - up to 3 most recent administrations Medication Order MAR Action Action Date Dose Rate Site inFLIXimab-dyyb (INFLECTRA) 600 mg in sodium chloride 0.9 % IVPB 600 mg (rounded from 628 mg = 5 mg/kg ? 125.6 kg), Intravenous, Administer over 120 Minutes, Once, 1 dose, On Mon07/21/21 at 0830, MAINTENANCE SCHEDULE Use an in-line, low protein binding filter with 1.2 micron pore size or less Titrate infusion: 10 mL/hr for 15 minutes, then 20 mL/hr for 15 minutes, then 40 mL/hr for 15 minutes, then 80 mL/hr for 15 minutes, then 150 mL/hr for 30 minutes then 250 mL/hr until complete. Use an in-line, low protein-binding filter with 1.2 micron pore size or less.??Infuse over a minimum of 2 hours. Titrate infusion: 10 mL/hr for 15 minutes, then 20 mL/hr for 15 minutes, then 40 mL/hr for 15 minutes, then 80 mL/hr for 15 minutes, then 150 mL/hr for 30 minutes, then 250 mL/hr until complete.Indications:Ulcerati ve pancolitis without complication (CMS/HCC HHS/HCC) New Bag 07/21/2021 8:58 AM PROGRAM MANAGER RN 600 mg 125 mL/hr documented in this encounter
--- OUTSIDE RECORDS SUMMARY | 2024-06-08 07:50 | XMS_ITS | Encounter Summary ---
Author Organization [facility] Address [address] [place] [address]. [place], [place] [phone] [place] [address] Care Team Providers Care Deputy Felony Clerk Name Role Phone Unavailable Primary Care Provider Unavailabl e Encounter Details Date Type Department Care Team (Latest Contact Info) Description 07/21/2021 Travel Social History Tobacco Use Types Packs/Day [...] Coronavirus/COVID-19? No / Unsure 07/21/2021 7:18 AM PIPE COVERING MOLDER documented as of this encounter Plan of Treatment Upcoming Encounters Date Type Department Care Team (Late st Contact Info) Description 08/21/2024 4:00 PM CDT Office Visit [facility] Family Medicine - [place] [phone] Charla Campos PA-C [address] [place] [address] documented as of this encounter Visit Diagnoses Not on filedocumented in this encounter
--- OUTSIDE RECORDS SUMMARY | 2024-06-08 07:50 | XMS_ITS | Encounter Summary ---
Author Organization [facility] Address [address] [place] [address]. [place] [address] [place] [address] Care Team Providers Care Relief Man Name Role Phone Unavailable Primary Care Provider Unavailabl e Encounter Details Date Type Department Care Team (Latest Contact Info) Description 07/27/2021 6:56 AM SHINGLE PACKER - 07/27/2021 11:59 PM SHINGLE PACKER Hospital Encounter [facility] [place] [address] Seble Bliss, JORI 3 [facility]. [address] [place] [address] Discharge Disposition: Home or Self Care (Routine [...] In the last 10 days, have gasper crowder been in contact with someone who was confirmed or suspected to have Coronavirus/COVID-19? No / Unsure 07/27/2021 6:56 AM SHINGLE PACKER documented as of this encounter Medications at Time of Discharge inFLIXimab-dyyb 100 MG injectionIndicati ons:Ulcerative pancolitis without complication (CMS/HCC HHS/HCC) Inject 70 mLs (700 mg total) into the vein see administration instructions. 5 mg/kg per dose IV every 8 weeks for 12 months. 7 each 5 2 AZATHIOPRINE 50 MG tabletIndications :Ulcerative pancolitis without complication (CMS/HCC HHS/HCC) Take 1 tablet by mouth once daily 90 tablet 1 11/18/19 22 azithromycin 250 MG tabletIndications :Acute upper respiratory infection Take 2 tablets po on day 1 then take 1 tablet po daily on days 2-5 6 tablet 1 05/17/20 22 cetirizine 10 MG tablet Take 10 mg by mouth daily. 08/16/19 23 desogestrel-ethin yl estradiol (AZURETTE) 0.15-0.02/0.01 MG (16/10) tabletIndications :Routine general medical examination at a health care facility Take 1 tablet by mouth daily. 84 tablet 1 2 01/03/20 23 dicyclomine 20 MG tabletIndications :Chronic diarrhea Take 1 tablet (20 mg total) by mouth every 6 (six) hours. 120 tablet 1 0 08/16/19 23 guaiFENesin ER 600 MG 12 hr tablet Take 1,200 mg by mouth 2 (two) times daily. 08/16/19 23 levETIRAcetam 750 MG tablet TAKE 1 TABLET TWICE DAILY FOR THE FIRST WEEK THEN TAKE 2 TABLET TWICE DAILY FOR THE SECOND WEEK DIRECTED 0 05/17/20 montelukast 10 MG tabletIndications :Chronic rhinitis Take 1 tablet (10 mg total) by mouth nightly at bedtime. 90 tablet 1 2 11/18/19 documented as of this encounter Progress Notes * Seble Bliss NP - 07/27/2021 7:15 AM CST Please send or fax results to the infusion center ([facility]) so pt may get results. GLE PACKER * Seble Bliss NP - 07/27/2021 7:15 AM CST Please let pt know her TB test returned negative. Thanks GLE PACKER documented in this encounter Plan of Treatment Upcoming Encounters Date Type Department Care Team (Late st Contact Info) Description 08/21/2024 4:00 PM CDT Office Visit [facility] Family Medicine - [place] [phone] Charla Campos PA-C [address] [place] [address] documented as of this encounter Procedures Procedure Name Priority Date/Time Associated Diagnosis Comments QUANTIFERON-TB GOLD PLUS, 4T Routine 07/27/2021 7:15 AM SHINGLE PACKER Ulcerative pancolitis with rectal bleeding (CMS/HCC HHS/HCC) HEPATITIS B CORE ANTIBODY Routine 07/27/2021 7:15 AM SHINGLE PACKER documented in this encounter Results * HEPATITIS B CORE ANTIBODY (07/27/2021 7:15 AM SHINGLE PACKER) HEP B CORE TOTAL AB NON-REACTI VE NON-REACTI VE 07/27/2021 5:10 PM SHINGLE PACKER [facility] 07/27/2021 7:15 AM SHINGLE PACKER Seble Bliss NP LABORATORY Final Result [facility] [address] [place] [address], [place] [phone] * QUANTIFERON-TB GOLD PLUS, 4T (07/27/2021 7:15 AM SHINGLE PACKER) [facility] QUANTIFERON TB PLUS 4T NEGATIVE NEGATIVE 07/31/2021 9:45 PM SHINGLE PACKER [facility] Comment: Negative test result. M. tuberculosis complex infection unlikely. NIL (TB) 0.02 IU/mL 07/31/2021 9:45 PM SHINGLE PACKER [facility] MITOGEN NIL >10.00 IU/mL 07/31/2021 9:45 PM SHINGLE PACKER [facility] BEATRICE LLY TB1 AG MINUS NIL <0.00 IU/mL 08/01/19 9:45 PM SHINGLE PACKER [facility] MYERS-PERRYTI LLY TB2 AG MINUS NIL <0.00 IU/mL 08/01/19 9:45 PM SHINGLE PACKER [facility]ERS[facility]PERRY[facility] Comment: The Nil tube [...] T-lymphocytes. For additional information, please refer to http://education.[employer]/faq/AKV622 (This link is being provided for information/ educational purposes only.) Test Performed by Aryan Schmitt, [facility], [address] [place], [place] José Antonio Mart M.D., Ph.D., Director of Laboratories , [facility] [id number] 07/27/2021 7:15 AM SHINGLE PACKER us Seble Bliss NP LABORATORY Final Result [facility] [address] [place], [place] , documented in this encounter Visit Diagnoses Diagnosis Ulcerative pancolitis with rectal bleeding (CMS/HCC HHS/HCC) Ulcerative chronic pancolitis with rectal bleeding (CMS/HCC HHS/HCC) [place] ulcerative (chronic) colitis documented in this encounter
--- OUTSIDE RECORDS SUMMARY | 2024-06-08 07:50 | XMS_ITS | Encounter Summary ---
Author Organization [facility] Address [address] [place] [address]. [place] [address] [place] [address] Care Team Providers Care Steerer Name Role Phone Unavailable Primary Care Provider Unavailabl e Reason for Visit * Reason Onset Date Comments Follow Up Call 07/15/2021 Encounter Details Date Type Department Care Team (Late st Contact Info) Description 07/15/2021 Telephone [facility] Multispecialty Care - [address], [address] [place] [address] Omar Johns MD 3 [facility] [address] [place] [address] Follow Up Call Social History Tobacco Use Types Packs/Day [...] encounter Progress Notes * Lino Morales - 07/15/2021 2:13 PM CST Paige with [facility] called to speak with a nurse concerning the pt. I transferred the call to Priscilla N CHAINER documented in this encounter Plan of Treatment Upcoming Encounters Date Type Department Care Team (Late st Contact Info) Description 08/21/2024 4:00 PM CDT Office Visit [facility] Medical [facility] Family Medicine - [place] [address] [place] [phone] Charla Campos PA-C [address] [place] [address] documented as of this encounter Visit Diagnoses Not on filedocumented in this encounter
--- OUTSIDE RECORDS SUMMARY | 2024-06-08 07:50 | XMS_ITS | Encounter Summary ---
Author Organization [facility] Address [address] [place] [address]. [place], [place] [address] [place] [address] Care Team Providers Care Fashion Design Professor Name Role Phone Unavailable Primary Care Provider Unavailabl e Encounter Details Date Type Department Care Team (Latest Contact Info) Description 07/29/2021 Travel Social History Tobacco Use Types Packs/Day [...] Coronavirus/COVID-19? No / Unsure 07/29/2021 9:45 AM CUSTODIAL FOREMAN documented as of this encounter Plan of Treatment Upcoming Encounters Date Type Department Care Team (Late st Contact Info) Description 08/21/2024 4:00 PM CDT Office Visit [facility] Medical Group Family Medicine - [place] [phone] Charla Campos PA-C [address] [place] [phone] documented as of this encounter Visit Diagnoses Not on filedocumented in this encounter Additional Health Concerns Assessment Noted Time PHQ-9 Depression Total Score: 3 07/30/19 22 1:18 PM CUSTODIAL FOREMAN documented as of this encounter
--- OUTSIDE RECORDS SUMMARY | 2024-06-08 07:50 | XMS_ITS | Encounter Summary ---
Author Organization [facility] Address [address] [place] [address]. [place], [place] [address] [place] [address] Care Team Providers Care Guide Visitor Name Role Phone Unavailable Primary Care Provider Unavailabl e Encounter Details Date Type Department Care Team (Latest Contact Info) Description 06/28/2021 Scan HEALTH INFO SRVCS Scanned, Documents Social [...] Description 08/21/2024 4:00 PM CDT Office Visit [facility] Medical Group Family Medicine - [place] [address] [place] [phone] Charla Campos PA-C [address] [place] [address] documented as of this encounter Visit Diagnoses Not on filedocumented in this encounter
--- OUTSIDE RECORDS SUMMARY | 2024-06-08 07:50 | XMS_ITS | Encounter Summary ---
Author Organization [facility] Address [address] [place] [address]. [place] [address] [place] [address] Care Team Providers Care Cold Roll Operator Name Role Phone Unavailable Primary Care Provider Unavailabl e Reason for Visit * Reason Comments Follow Up N/A * Consultation/Treatment (Routine) - Closed Specialty Diagnoses / Procedures Referred By Contact Referred To Contact NURSE PRACTITIONER / GASTROENTEROLOGY Diagnoses discuss colitis Procedures FOLLOW UP Karson Payne MD [address] [facility] [address] [place] [address] Phone: tel: fax: Seble Bliss NP 3 [facility]. [address] [place] [address] Phone: tel:[phone] fax:[phone] Referral ID Status Reason Start Date Expiration Date Visits Re quested Visits Authorized [id number] Closed 07/23/2020 08/20/2021 100 100 Encounter Details Date Type Department Care Team (Late st Contact Info) Description 07/29/2021 1:00 PM PAINTER HAND Office Visit [facility] Multispecialty Care - [facility] 3 [facility] [address] [place] [address] Omar Johns MD 3 [facility] [address] [place] [address] Follow Up (N/A) Social History Tobacco Use Types Packs/Day Years [...] Coronavirus/COVID-19? No / Unsure 07/29/2021 9:45 AM PAINTER HAND documented as of this encounter Last Filed Vital Signs Vital Sign Reading Time Taken Comments Blood Pressure 122/88 07/29/2021 1:16 PM PAINTER HAND Pulse - - Temperature 36.7 ??C (98 ??F) 07/29/2021 1:16 PM PAINTER HAND Respiratory Rate - - Oxygen Saturation - - Inhaled Oxygen Concentration - - Weight 126.6 kg (279 lb) 07/29/2021 1:16 PM PAINTER HAND Height 179.1 cm (5' 10.5 ) 07/29/2021 1:16 PM CS T Body Mass Index 39.47 07/29/2021 1:16 PM PAINTER HAND documented in this encounter Progress Notes * Omar Johns MD - 07/29/2021 1:00 PM CST Images from the original note were not included. Gastroenterology Established Visit Reason for Visit: Follow Up (N/A) History of Present Illness: Paige is doing quite well on Inflectra and azathioprine 50 mg daily. Last infusion of Inflectra was about a week ago. She changed insurances now and is uncertain if she will be able to continue getting this medication so she is concerned. We have done a TB test which is pending. Hepatitis B core antibody is negative. Medications: Current Outpatient Medications: ??? AZATHIOPRINE 50 MG tablet, Take 1 tablet by mouth once daily, Disp: 90 tablet, Rfl: 0 ??? azithromycin 250 MG tablet, Take 2 tablets po on day 1 then take 1 tablet po daily on days 2-5,Disp: 6 tablet, Rfl: 0 ??? cetirizine 10 MG tablet, Take 10 [...] months., Disp: 7 each, Rfl: 5 ??? levETIRAcetam 750 MG tablet, TAKE 1 TABLET TWICE DAILY FOR THE FIRST WEEK THEN TAKE 2 TABLET TWICE DAILY FOR THE SECOND WEEK DIRECTED, Disp: , Rfl: ??? montelukast 10 MG tablet, Take 1 tablet (10 mg total) by mouth nightly at bedtime., Disp: 90 tablet, Rfl: 1 Allergies: No Known Allergies Medical History: Past Medical History: Diagnosis Date ??? Seizures (CMS/HCC) ??? Ulcerative colitis (CMS/HCC) 06/28/2019 Dr. Omar Johns moderate to severe reed ulcerative colitis Surgical History: Past Surgical History: Procedure Laterality Date ??? COLONOSCOPY N/A 06/28/2019 COLONOSCOPY WITH BIOPSIES performed by Omar Johns MD at [facility] OR ulcerative pancolitis ??? COLONOSCOPY N/A 08/24/2020 COLONOSCOPY WITH COLON BIOPSY VIA LARGE COLD FORCEP AND STOOL SAMPLE FOR CDIFF performed by Omar Hawk MD at [facility] GI ??? TONSILLECTOMY PE: Filed Vitals: 07/29/21 1316 BP: 122/88 Temp: 98 ??F (36.7 ??C) TempSrc: Temporal Weight: 126.6 kg (279 lb) Height: 5' 10.5 (1.791 m) General: In NAD, pleasant and appropriate HEENT: Anicteric Cardiovascular: RRR, no m Pulmonary: CTA BL, no added sounds Abdomen: Soft, ND/NT, normoactive BS Skin: Anicteric, no rashes Neuro: A&Ox3 Labs: Labs Reviewed @LAB@ Diagnoses/Impression: [place] ulcerative colitis improved with Inflectra and azathioprine. Continue same. Insurance requirements for blood testing and office visit have been met. Recommendations and Plan: Inflectra 5 mg/kg every 2 months. Plus azathioprine 50 mg daily. If doing well see me back in 1 year. OMAR JOHNS MD 07/29/2021 Voice recognition software utilized TER HAND documented in this encounter Plan of Treatment Upcoming Encounters Date Type Department Care Team (Late st Contact Info) Description 08/21/2024 4:00 PM CDT Office Visit [facility] Family Medicine - [place] [address] [place] [phone] Charla Campos PA-C [address] [facility] [place] [address] documented as of this encounter Visit Diagnoses Diagnosis Ulcerative pancolitis without complication (CMS/HCC HHS/HCC)- Primary documented in this encounter Additional Health Concerns Assessment Noted Time PHQ-9 Depression Total Score: 3 07/30/19 22 1:18 PM PAINTER HAND documented as of this encounter
--- OUTSIDE RECORDS SUMMARY | 2024-06-08 07:51 | XMS_ITS | Encounter Summary ---
Author Organization [facility] Address [address] [place] [address]. [place] [address] [place] [address] Care Team Providers Care Roll On Man Name Role Phone Unavailable Primary Care Provider Unavailabl e Reason for Visit * Reason Onset Date Comments Follow Up Call 06/23/2021 Information 06/25/2021 Information 06/28/2021 Encounter Details Date Type Department Care Team (Late st Contact Info) Description 06/23/2021 Telephone [facility] Multispecialty Care - [facility] 3 [facility], [address] [place] [phone] Omar Johns MD 3 [facility] [address] [place] [address] Follow Up Call; Information; Information Social History Tobacco Use Types Packs/Day [...] as of this encounter Progress Notes * Kasie Myers - 06/28/2021 10:50 AM CST Carly with [facility] called to speak with Xochitl regarding this patient. Transferred. ERTY SITE MANAGER * Kasie Myers - 06/25/2021 11:07 AM CST [facility] called and stated that all referral form can be found on their website at [email or web address]. Please reach out to [facility] with any further questions or clarifications at [phone]. ERTY SITE MANAGER * Xochitl Escobedo - 06/25/2021 10:12 AM CST Spoke wit Carly at [facility] she said moving forward patient must have Inflectra infusion treatment done at an outpatient facility versus the hospital. List of out patient facilities was given so patientcan look into. If there is no medical necessity to remain at hospital setting. Patient was informed. Patient called back she is going to use [facility] at [address] at [phone] or [phone]. Records and order will be faxed. Left voicemail message for Carly at [facility] informingher of which facility patient is going to. ERTY SITE MANAGER * Kasie Myers - 06/25/2021 9:31 AM CST Paige called to inform that the [facility] will need the following information: A face sheet and demographics Patient's insurance information All clinical notes A signed order from the Dr Vern Pineda and [facility] Paige provided the fax and phone number for [facility] Please follow up with Paige if there are any further questions. ERTY SITE MANAGER * Xohcitl Escobedo - 06/23/2021 2:00 PM CST LVM for pt to give the office a call back. ERTY SITE MANAGER * Xochitl Escobedo - 06/23/2021 11:01 AM CST Returned Elizabeth call left a voicemail message. ERTY SITE MANAGER * Lino Morales - 06/23/2021 10:52 AM CST Elizabeth Reyna from [facility] has requested to speak with Xochitl. She wants to discuss remaining authorizations needed for the pt. She says she is going to fax something listing the information needed to obtain authorization. She wants a call back to discuss at [phone] ERTY SITE MANAGER documented in this encounter Plan of Treatment Upcoming Encounters Date Type Department Care Team (Late st Contact Info) Description 08/21/2024 4:00 PM CDT Office Visit [facility] Medical [facility] Family Medicine - [place] [address] [place] [phone] Charla Campos PA-C [address] [place] [address] documented as of this encounter Visit Diagnoses Not on filedocumented in this encounter
--- OUTSIDE RECORDS SUMMARY | 2024-06-08 07:51 | XMS_ITS | Encounter Summary ---
Author Organization [facility] Address [address] [place] [address]. [place] [address] [place] [address] Care Team Providers Care Nutrition Assistant Name Role Phone Unavailable Primary Care Provider Unavailabl e Reason for Visit * Reason Comments Infusion Therapy * Injection (Routine) - Pending Review Specialty Diagnoses / Procedures Referred By Yodit t Referred To Contact [facility] Infusion Therapy Diagnoses K51.0 Procedures INFLIXIMAB-DYYB 10MG IV SOLR (INFLECTRA) INTRAVENOUS INFUSION FOR THERAPY UP TO 1HR INTRAVENOUS INFUSION FOR THERAPY EA ADDL HR INFUSION [facility] [place] [address] Phone: tel: fax: [facility] [place] [address] Phone: tel: fax: Referral ID Status Reason Start Date Expiration Date V isits Requested Visits Authorized [id number] Pending Review 09/23/2020 15 15 Encounter Details Date Type Department Care Team (Late st Contact Info) Description 03/24/2021 2:30 PM CDT Treatment [facility] [place], [place] [phone] Omar Johns MD [address] [place] [phone] Infusion Therapy Social History Tobacco Use Types [...] Exposure Response Date Recorded In the last month, have you been in contact with someone who was confirmed or suspected to have Coronavirus / COVID-19? No / Unsure 03/24/2021 1:56 PM CDT documented as of this encounter Last Filed Vital Signs Vital Sign Reading Time Taken Comments Blood Pressure 124/81 03/24/2021 4:37 PM CDT Pulse 100 03/24/2021 4:37 PM CDT Temperature 36.8 ??C (98.2 ??F) 03/24/2021 4:37 PM CD T Respiratory Rate 18 03/24/2021 2:12 PM CDT Oxygen Saturation 96% 03/24/2021 4:37 PM CDT Inhaled Oxygen Concentration - - Weight 130.6 kg (288 lb) 03/24/2021 2:12 PM CDT Height 179.1 cm (5' 10.5 ) 03/24/2021 2:12 PM CD T Body Mass Index 40.74 03/24/2021 2:12 PM CDT documented in this encounter Progress Notes * Kasie Lane RN - 03/24/2021 2:30 PM CDT Patient tolerated infusion well, no complaints or concerns. Vitals stable. documented in this encounter Plan of Treatment Upcoming Encounters Date Type Department Care Team (Late st Contact Info) Description 08/21/2024 4:00 PM CDT Office Visit [facility] Family Medicine - [place] [address] [place] [phone] Charla Campos PA-C [address] [place] [address] documented as of this encounter Visit Diagnoses Diagnosis Ulcerative pancolitis without complication (CMS/HCC HHS/HCC)- Primary documented in this encounter Administered Medications Inactive Administered Medications - up to 3 most recent administrations Medication Order MAR Action Action Date Dose Rate Site inFLIXimab-dyyb (INFLECTRA) 650 mg in sodium chloride 0.9 % IVPB 650 mg, Intravenous, Administer over 120 Minutes, Once, 1 dose, On Mon03/24/21 at 1430, MAINTENANCE SCHEDULE Use an in-line, low protein binding filter with 1.2 micron pore size or less Titrate infusion: 10 mL/hr for 15 minutes, then 20 mL/hr for 15 minutes, then 40 mL/hr for 15 minutes, then 80 mL/hr for 15 minutes, then 150 mL/hr for 30 minutes then 250 mL/hr until complete. Final concentration to be 0.4-4 mg/mLIndications:Ulcerative pancolitis without complication (CMS/HCC HHS/HCC) New Bag 03/24/2021 2:36 PM CDT 650 mg 125 mL/hr documented in this encounter
--- OUTSIDE RECORDS SUMMARY | 2024-06-08 07:51 | XMS_ITS | Encounter Summary ---
Author Organization [facility] Address [address] [place] [address]. [place], [place] [address] [place] [address] Care Team Providers Care Band Leader Name Role Phone Unavailable Primary Care Provider Unavailabl e Encounter Details Date Type Department Care Team (Latest Contact Info) Description 06/03/2021 Scan HEALTH INFO SRVCS Scanned, Documents Social [...] have Coronavirus / COVID-19? No / Unsure 05/19/2021 11:22 AM REFINERY OPERATOR CRUDE UNIT documented as of this encounter Plan of Treatment Upcoming Encounters Date Type Department Care Team (Late st Contact Info) Description 08/21/2024 4:00 PM CDT Office Visit [facility] Medical Group Family Medicine - [place] [address] [place] [phone] Charla Campos PA-C [address] [place] [address] documented as of this encounter Visit Diagnoses Not on filedocumented in this encounter
--- OUTSIDE RECORDS SUMMARY | 2024-06-08 07:51 | XMS_ITS | Encounter Summary ---
Author Organization [facility] Address [address] [place] [address]. [place] [address] [place] [address] Care Team Providers Care Neurosurgery Research Director Name Role Phone Unavailable Primary Care Provider Unavailabl e Reason for Visit * Reason Onset Date Comments Question 06/10/2021 Encounter Details Date Type Department Care Team (Late st Contact Info) Description 06/10/2021 Telephone [facility] Medical Group Multispecialty Care - [facility] 3 [facility], [address] [place] [address] Seble Bliss NP 3 [facility]. [address] [place], [place] [address] Question Social History Tobacco Use Types Packs/Day [...] COVID-19? No / Unsure 05/19/2021 11:22 AM DATA MANAGEMENT ASSOCIATE documented as of this encounter Progress Notes * Renetta Chapman - 06/10/2021 11:20 AM CST [facility] rep called to confirm if pt was having injections in our office or infusion center. Per scheduled appts I gave her the information on where injections would take place. No follow up call needed at this time MANAGEMENT ASSOCIATE documented in this encounter Plan of Treatment Upcoming Encounters Date Type Department Care Team (Late st Contact Info) Description 08/21/2024 4:00 PM CDT Office Visit [facility] Medical Group Family Medicine - [place] [address] [place] [phone] Charla Campos PA-C [address] [place] [address] documented as of this encounter Visit Diagnoses Not on filedocumented in this encounter
--- OUTSIDE RECORDS SUMMARY | 2024-06-08 07:51 | XMS_ITS | Encounter Summary ---
Author Organization [facility] Address [facility] [place] [address] [place] [address] Care Team Providers Care Design Studio Consultant Name Role Phone Unavailable Primary Care Provider Unavailabl e Encounter Details Date Type Department Care Team (Late st Contact Info) Description 06/08/2021 Orders Only [facility] Multispecialty Care - [facility] [address] [facility], [address] [place] [phone] Seble Bliss, JORI [address] [facility] [place] [address] Social History Tobacco Use Types Packs/Day Years [...] COVID-19? No / Unsure 05/19/2021 11:22 AM BOAT RENTAL CLERK documented as of this encounter Plan of Treatment Upcoming Encounters Date Type Department Care Team (Late st Contact Info) Description 08/21/2024 4:00 PM CDT Office Visit [facility] Family Medicine - [address] [phone] Charla Campos, PA-C [address] [place] [address] documented as of this encounter Visit Diagnoses Diagnosis Ulcerative pancolitis without complication (CMS/HCC HHS/HCC) documented in this encounter
--- OUTSIDE RECORDS SUMMARY | 2024-06-08 07:51 | XMS_ITS | Encounter Summary ---
Author Organization [facility] Address [address] [place] [address]. [place] [address] [place] [address] Care Team Providers Care Line Appliance Assembler Name Role Phone Unavailable Primary Care Provider Unavailabl e Reason for Visit * Reason Onset Date Comments Medication 06/08/2021 Encounter Details Date Type Department Care Team (Late st Contact Info) Description 06/08/2021 Telephone [facility] Multispecialty Care - [facility] 3 [facility], [address] [place] [address] Seble Bliss NP 3 [facility]. [address] [place] [address] Medication Social History Tobacco Use Types Packs/Day [...] COVID-19? No / Unsure 05/19/2021 11:22 AM SIGN INSTALLER documented as of this encounter Progress Notes * Seble Bliss NP - 06/08/2021 8:20 AM CST Please find out more information for pt as I am not able to find this pharmacy in the information please. INSTALLER * Caridad Azul - 06/08/2021 7:41 AM CST Paige called today and her insurance has changed and her medication needs to be sent to [facility]. Phone # is [phone] Medication is Inflectra. Please call when completed. INSTALLER documented in this encounter Plan of Treatment Upcoming Encounters Date Type Department Care Team (Late st Contact Info) Description 08/21/2024 4:00 PM CDT Office Visit [facility] Family Medicine - [place] [phone] Charla Campos PA-C [address] [place] [address] documented as of this encounter Visit Diagnoses Diagnosis Ulcerative pancolitis without complication (CMS/HCC HHS/HCC) documented in this encounter
--- OUTSIDE RECORDS SUMMARY | 2024-06-08 07:51 | XMS_ITS | Encounter Summary ---
Author Organization [facility] Address [address] [place] [address]. [place], [place] [address] [place] [address] Care Team Providers Care Criminology Teacher Name Role Phone Unavailable Primary Care Provider Unavailabl e Encounter Details Date Type Department Care Team (Latest Contact Info) Description 06/15/2021 Scan HEALTH INFO SRVCS Scanned, Documents Social [...] COVID-19? No / Unsure 05/19/2021 11:22 AM LIQUOR CLERK documented as of this encounter Plan of Treatment Upcoming Encounters Date Type Department Care Team (Late st Contact Info) Description 08/21/2024 4:00 PM CDT Office Visit [facility] Medical Group Family Medicine - [place] [address] [place] [phone] Charla Campos PA-C [address] [place] [address] documented as of this encounter Visit Diagnoses Not on filedocumented in this encounter
--- OUTSIDE RECORDS SUMMARY | 2024-06-08 07:51 | XMS_ITS | Encounter Summary ---
Author Organization [facility] Address [address] [place] [address]. [place] [address] [place] [address] Care Team Providers Care Electric Container Tester Name Role Phone Unavailable Primary Care Provider Unavailabl e Reason for Visit * Reason Onset Date Comments Error 06/14/2021 Encounter Details Date Type Department Care Team (Late st Contact Info) Description 06/14/2021 Telephone [facility] Multispecialty Care - [facility] 3 [facility], [address] [place] [address] Seble Bliss NP 3 [facility]. [address] [place] [address] Error Social History Tobacco Use Types Packs/Day [...] COVID-19? No / Unsure 05/19/2021 11:22 AM MOBILE PLANT OPERATORS documented as of this encounter Plan of Treatment Upcoming Encounters Date Type Department Care Team (Late st Contact Info) Description 08/21/2024 4:00 PM CDT Office Visit [facility] Family Medicine - [address] [phone] Charla Campos PAZaheerC [address] [place] [address] documented as of this encounter Visit Diagnoses Not on filedocumented in this encounter
--- OUTSIDE RECORDS SUMMARY | 2024-06-08 07:51 | XMS_ITS | Encounter Summary ---
Author Organization [facility] Address [address] [place] [address]. [place] [address] [place] [address] Care Team Providers Care Capital Campaign Fundraiser Name Role Phone Unavailable Primary Care Provider Unavailabl e Reason for Visit * Reason Comments Acute Note sore throat,cough wi th green sputum, and sinus drainage Encounter Details Date Type Department Care Team (Late st Contact Info) Description 04/05/2021 2:00 PM TWISTING OPERATOR Office Visit [facility] [address] [facility] [address] [place] [address] Monik Fonseca MD [address] [facility] [address] [place] [phone] Acute Note (sore throat,cough with green sputum, and sinus drainage) Social History Tobacco Use Types Packs/Day Years [...] Sign Reading Time Taken Comments Blood Pressure 128/64 04/05/2021 1:42 PM TWISTING OPERATOR Pulse - - Temperature 36.9 ??C (98.4 ??F) 04/05/2021 1:42 PM CS T Respiratory Rate - - Oxygen Saturation - - Inhaled Oxygen Concentration - - Weight 130.6 kg (288 lb) 04/05/2021 1:42 PM TWISTING OPERATOR Height - - Body Mass Index 40.74 03/24/2021 2:12 PM CDT documented in this encounter Progress Notes * Monik Fonseca MD - 04/05/2021 2:00 PM CST Reason for Visit: Acute Note (sore throat,cough with green sputum, and sinus drainage) HPI ROS: Review of Systems Constitutional: Negative for fever. HENT: Positive for congestion and sinus pain. Negative for ear pain. Eyes: Negative for pain. Respiratory: Positive for cough. Negative for shortness of breath. Cardiovascular: Negative for chest pain, palpitations and leg swelling. Gastrointestinal: Negative for diarrhea, nausea and vomiting. Genitourinary: Negative for dysuria. Musculoskeletal: Negative for myalgias. Neurological: Negative for dizziness. Psychiatric/Behavioral: Negative for depression. Medications: Current Outpatient Medications: ??? AZATHIOPRINE 50 [...] by mouth daily., Disp: 84 tablet, Rfl: 3 ??? dicyclomine 20 MG tablet, Take 1 tablet (20 mg total) by mouth every 6 (six) hours., Disp: 120 tablet, Rfl: 1 ??? guaiFENesin ER 600 MG 12 hr tablet, Take 1,200 mg by mouth 2 (two) times daily., Disp: , Rfl: ??? inFLIXimab-dyyb 100 MG injection, Inject 68.1 mLs (681 mg total) into the vein see administration instructions. 5 mg/kg per dose IV x1 on week 0, 2, 6, then every 8 weeks for 12 months., Disp: 7 each, Rfl: 8 ??? levETIRAcetam 750 MG tablet, TAKE 1 TABLET TWICE DAILY FOR THE FIRST WEEK THEN TAKE 2 TABLET TWICE DAILY FOR THE SECOND WEEK DIRECTED, Disp: , Rfl: ??? montelukast 10 MG tablet, Take 1 tablet (10 mg total) by mouth nightly at bedtime., Disp: 90 tablet, Rfl: 3 There is no immunization history on file for this patient. No Known Allergies Past Medical History: Diagnosis Date ??? Seizures (CMS/HCC) ??? Ulcerative colitis (CMS/HCC) 06/28/2019 Dr. Omar Johns moderate to severe reed ulcerative colitis Past Surgical History: Procedure Laterality Date ??? COLONOSCOPY N/A 06/28/2019 COLONOSCOPY WITH BIOPSIES performed by Omar Johns MD at [facility] OR ulcerative pancolitis ??? COLONOSCOPY N/A 08/24/2020 COLONOSCOPY WITH COLON BIOPSY VIA LARGE COLD FORCEP AND STOOL SAMPLE FOR CDIFF performed by Omar Hawk MD at [facility] ??? TONSILLECTOMY Social History Tobacco Use ??? Smoking status: Never Smoker ??? Smokeless tobacco: Never Used Substance Use Topics ??? Alcohol use: Yes Comment: occasional Social History Socioeconomic History ??? Marital status: Single Spouse name: Not on file ??? Number of children: Not on file ??? Years of education: Not on file ??? Highest education level: Not on file Occupational History ??? 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 HENT: Right Ear: Tympanic membrane normal. Left Ear: Tympanic membrane normal. Nose: Congestion present. Cardiovascular: Normal rate and regular rhythm. Pulmonary/Chest: Effort normal and breath sounds normal. Abdominal: Soft. Musculoskeletal: Normal range of motion. Neurological: She is alert. Skin: Skin is warm and dry. Filed Vitals: 04/05/21 1342 BP: 128/64 Temp: 98.4 ??F (36.9 ??C) Weight: 130.6 kg (288 lb) Body mass index is 40.74 kg/m??. Assessment: 1. Acute upper respiratory infection azithromycin 250 MG tablet Plan: - Comply with suggestions for healthy lifestyle Diagnoses and all orders for this visit: Acute upper respiratory infection - azithromycin 250 MG tablet; Take 2 tablets po on day 1 then take 1 tablet po daily on days 2-5 After discussion, she would like an antibiotic. We also discussed OTC symptomatic treatment. Reviewed and updated this visit by provider: No follow-ups on file. MONIK FONSECA MD Referring Provider: No ref. provider found PCP: MONIK FONSECA MD TING OPERATOR documented in this encounter Plan of Treatment Upcoming Encounters Date Type Department Care Team (Late st Contact Info) Description 08/21/2024 4:00 PM CDT Office Visit [facility] Medical Group Family Medicine - [place] [address] [place] [phone] Charla Campos PA-C [address] [place] [address] documented as of this encounter Visit Diagnoses Diagnosis Acute upper respiratory infection- Primary Acute upper respiratory infections of unspecified site documented in this encounter
--- OUTSIDE RECORDS SUMMARY | 2024-06-08 07:51 | XMS_ITS | Encounter Summary ---
Author Organization [facility] Address [address] [place] [address]. [place] [address] [place] [address] Care Team Providers Care Silk Weaver Name Role Phone Unavailable Primary Care Provider Unavailabl e Reason for Visit * Reason Comments Infusion Therapy * Injection (Routine) - Pending Review Specialty Diagnoses / Procedures Referred By Yodit t Referred To Contact [facility] Infusion Therapy Diagnoses K51.0 Procedures INFLIXIMAB-DYYB 10MG IV SOLR (INFLECTRA) INTRAVENOUS INFUSION FOR THERAPY UP TO 1HR INTRAVENOUS INFUSION FOR THERAPY EA ADDL HR INFUSION [facility] [place] [address] Phone: tel: fax: [facility] [place] [address] Phone: tel: fax: Referral ID Status Reason Start Date Expiration Date V isits Requested Visits Authorized [id number] Pending Review 09/23/2020 15 15 Encounter Details Date Type Department Care Team (Late st Contact Info) Description 05/19/2021 2:30 PM ENGINE HOSTLER Treatment [facility] [place], [place] [phone] Omar Johns MD [address] [place] [phone] Infusion Therapy Social History Tobacco Use Types [...] COVID-19? No / Unsure 05/19/2021 11:22 AM ENGINE HOSTLER documented as of this encounter Last Filed Vital Signs Vital Sign Reading Time Taken Comments Blood Pressure 125/89 05/19/2021 5:19 PM ENGINE HOSTLER Pulse 93 05/19/2021 5:19 PM ENGINE HOSTLER Temperature 36.6 ??C (97.9 ??F) 05/19/2021 2:52 PM CS T Respiratory Rate 20 05/19/2021 5:19 PM ENGINE HOSTLER Oxygen Saturation 98% 05/19/2021 5:19 PM ENGINE HOSTLER Inhaled Oxygen Concentration - - Weight 130.2 kg (287 lb) 05/19/2021 2:18 PM ENGINE HOSTLER Height 179.1 cm (5' 10.5 ) 05/19/2021 2:18 PM CS T Body Mass Index 40.6 05/19/2021 2:18 PM ENGINE HOSTLER documented in this encounter Progress Notes * Carly Moseley RN - 05/19/2021 2:30 PM CST Pt tolerated inflectra infusion well with out complications. NE HOSTLER documented in this encounter Plan of Treatment Upcoming Encounters Date Type Department Care Team (Late st Contact Info) Description 08/21/2024 4:00 PM CDT Office Visit [facility] Medical Group Family Medicine - [place] 100 [place] [phone] Charla Campos PA-C 100 [place] [address] documented as of this encounter Visit Diagnoses Diagnosis Ulcerative pancolitis without complication (CMS/HCC HHS/HCC)- Primary documented in this encounter Administered Medications Inactive Administered Medications - up to 3 most recent administrations Medication Order MAR Action Action Date Dose Rate Site inFLIXimab-dyyb (INFLECTRA) 650 mg in sodium chloride 0.9 % IVPB 650 mg, Intravenous, Administer over 120 Minutes, Once, 1 dose, On Mon05/19/21 at 1445, MAINTENANCE SCHEDULE Use an in-line, low protein [...] pancolitis without complication (CMS/HCC HHS/HCC) New Bag 05/19/2021 2:52 PM ENGINE HOSTLER 650 mg 125 mL/hr documented in this encounter
--- OUTSIDE RECORDS SUMMARY | 2024-06-08 07:51 | XMS_ITS | Encounter Summary ---
Author Organization [facility] Address [address] [place] [address]. [place], [place] [address] [place] [address] Care Team Providers Care Stencil Sprayer Name Role Phone Unavailable Primary Care Provider Unavailabl e Encounter Details Date Type Department Care Team (Latest Contact Info) Description 03/24/2021 Travel Social History Tobacco Use Types Packs/Day [...] [facility] Family Medicine - [place] [phone] Charla Campos PA-C [address] [place] [address] documented as of this encounter Visit Diagnoses Not on filedocumented in this encounter
--- OUTSIDE RECORDS SUMMARY | 2024-06-08 07:51 | XMS_ITS | Encounter Summary ---
Author Organization [facility] Address [facility]6 [place] [address] [place] [address] Care Team Providers Care Senior Policy Advisor Name Role Phone Unavailable Primary Care Provider Unavailabl e Reason for Visit * Reason Onset Date Comments Pre-authorization 06/14/2021 re: meds Encounter Details Date Type Department Care Team (Late st Contact Info) Description 06/14/2021 Telephone [facility] Medical Group Multispecialty Care - [facility] 3 [facility], [address] [place] [address] Seble Bliss NP 3 [facility]. [address] [place] [address] Pre-authorization (re: meds) Social History Tobacco Use Types Packs/Day Years [...] COVID-19? No / Unsure 05/19/2021 11:22 AM BB SHOT PACKER documented as of this encounter Progress Notes * Priscilla Marshall - 06/18/2021 1:12 PM CST BC/BS called to inform Dr. Johns office that they will be calling the office closer to 07/14/21 when the infusion is scheduled. SHOT PACKER * Xochitl Escobedo - 06/14/2021 10:02 AM CST Spoke with patient she was informed that [facility] is closed for the . We will be reaching out tomorrow to get an updated auth for Inflectra. SHOT PACKER * Sailaja Packer - 06/14/2021 8:22 AM CST Ins co also called to f/u, xfer call to SL SHOT PACKER * Sailaja Packer - 06/14/2021 7:49 AM CST Pt is calling to see if you got paperwork from ins co for her infusion. This would be for pre auth.Please f/u with pt. SHOT PACKER documented in this encounter Plan of Treatment Upcoming Encounters Date Type Department Care Team (Late st Contact Info) Description 08/21/2024 4:00 PM CDT Office Visit [facility] Medical Group Family Medicine - [place] [phone] Charla Campos PA-C [address] [place] [address] documented as of this encounter Visit Diagnoses Not on filedocumented in this encounter
--- OUTSIDE RECORDS SUMMARY | 2024-06-08 07:51 | XMS_ITS | Encounter Summary ---
Author Organization [facility] Address [address] [place] [address]. [place], [place] [address] [place] [address] Care Team Providers Care Tag Writer Name Role Phone Unavailable Primary Care Provider Unavailabl e Encounter Details Date Type Department Care Team (Latest Contact Info) Description 05/19/2021 Travel Social History Tobacco Use Types Packs/Day [...] COVID-19? No / Unsure 05/19/2021 11:22 AM PARK KEEPER documented as of this encounter Plan of Treatment Upcoming Encounters Date Type Department Care Team (Late st Contact Info) Description 08/21/2024 4:00 PM CDT Office Visit [facility] Medical Group Family Medicine - [place] [phone] Charla Campos PA-C [address] [place] [address] documented as of this encounter Visit Diagnoses Not on filedocumented in this encounter
--- OUTSIDE RECORDS SUMMARY | 2024-06-08 07:52 | XMS_ITS | Encounter Summary ---
Author Organization [facility] Address [address] [place] [address]. [place], [place] [address] [place] [address] Care Team Providers Care Artificial Stone Setter Name Role Phone Unavailable Primary Care Provider Unavailabl e Encounter Details Date Type Department Care Team (Latest Contact Info) Description 12/02/2020 Travel Social History Tobacco Use Types Packs/Day [...] have Coronavirus / COVID-19? No / Unsure 12/02/2020 2:22 PM CDT documented as of this encounter Plan of Treatment Upcoming Encounters Date Type Department Care Team (Late st Contact Info) Description 08/21/2024 4:00 PM CDT Office Visit [facility] Medical Group Family Medicine - [place] [phone] Charla Campos PA-C [address] [place] [address] documented as of this encounter Visit Diagnoses Not on filedocumented in this encounter
--- OUTSIDE RECORDS SUMMARY | 2024-06-08 07:52 | XMS_ITS | Encounter Summary ---
Author Organization [facility] Address [address] [place] [address]. [place], [place] [address] [place] [address] Care Team Providers Care Pharmaceutical Plant Operator Name Role Phone Unavailable Primary Care Provider Unavailabl e Encounter Details Date Type Department Care Team (Latest Contact Info) Description 10/02/2020 Scan HEALTH INFO SRVCS Scanned, Documents Social [...] [facility] - [place] [address] [place] [phone] Charla Campos PA-C [address] [place] [address] documented as of this encounter Visit Diagnoses Not on filedocumented in this encounter
--- OUTSIDE RECORDS SUMMARY | 2024-06-08 07:52 | XMS_ITS | Encounter Summary ---
Author Organization [facility] Address [address] [place] [address]. [place] [address] [place] [address] Care Team Providers Care Dough Sheeter Name Role Phone Unavailable Primary Care Provider Unavailabl e Reason for Visit * Reason Onset Date Comments Question 01/22/2021 Encounter Details Date Type Department Care Team (Late st Contact Info) Description 01/22/2021 Telephone [facility] Medical Group Multispecialty Care - [facility] 3 [facility], [address] [place] [address] Omar Johns MD 3 [facility] [address] [place] [address] Question Social History Tobacco Use Types Packs/Day [...] have Coronavirus / COVID-19? No / Unsure 12/28/2020 3:34 PM CDT documented as of this encounter Progress Notes * Xochitl Escobedo - 01/22/2021 1:34 PM CDT We will have Dr. Johns take a look at her paperwork. * Renetta Chapman - 01/22/2021 8:45 AM CDT Pt called to discuss her FMLA paperwork. She stated it was done incorrectly and that she was informed question 1,6 and 7 need to be answered. She requested the paperwork be resubmitted after corrections are made. If there are any questions about what is needed please contact Pt. Pt also stated her Pharm was sending a refill request and she wanted to make sure our office was aware. [phone] documented in this encounter Plan of Treatment Upcoming Encounters Date Type Department Care Team (Late st Contact Info) Description 08/21/2024 4:00 PM CDT Office Visit [facility] Medical Group Family Medicine - [place] [phone] Charla Campos PA-C [address] [place] [address] documented as of this encounter Visit Diagnoses Not on filedocumented in this encounter
--- OUTSIDE RECORDS SUMMARY | 2024-06-08 07:52 | XMS_ITS | Encounter Summary ---
Author Organization [facility] Address [address] [place] [address]. [place], [place] [phone] [place] [address] Care Team Providers Care Apron Man Name Role Phone Unavailable Primary Care Provider Unavailabl e Encounter Details Date Type Department Care Team ([facility] st Contact Info) Description 12/28/2020 4:15 PM CDT Laboratory Only [facility] [address] [place] [address] Social History Tobacco Use Types Packs/Day Years [...] as of this encounter Progress Notes * Kathi Ferrara RN - 12/28/2020 4:15 PM CDTAddended by: KATHI FERRARA on: 12/31/2020 09:13 AM Modules accepted: Orders * Monik Fonseca MD - 12/28/2020 4:15 PM CDT Her Pap shows bacterial vaginosis. Prescribed MetroGel vaginal 1 applicator daily for 5 days. Her Pap also shows ASCUS. Obtain HPV status. Also, please tell her her other labs were normal. documented in this encounter Plan of Treatment Upcoming Encounters Date Type Department Care Team (Late st Contact Info) Description 08/21/2024 4:00 PM CDT Office Visit [facility] Medical Group Family Medicine - [place] [phone] Charla Campos PA-C [address] [place] [address] [phone] Scheduled Orders Name Type Priority Associated Diagnoses Orde r Schedule SPECIMEN HANDLING,DR OFF->LAB Procedures Routine Encounter for screening for malignant neoplasm of cervix Screening for STD (sexually transmitted disease) Ordered: 12/28/2020 documented as of this encounter Procedures Procedure Name Priority Date/Time Associated Diagnosis Comments THINPREP IMAGING SYSTEM PAP Routine 12/28/2020 4:10 PM CDT Encounter for screening for malignant neoplasm of cervix Screening for STD (sexually transmitted disease) documented in this encounter Results * (ABNORMAL) THINPREP IMAGING SYSTEM PAP (12/28/2020 4:10 PM CDT) THIN PREP PAP SEE RESULTS BELOW(A) [facility] Comment: CASE REPORT: CYTOLOGY GYNECOLOGICAL REPORT ? CASE: [id number] ? AUTHORIZING PROVIDER: ??MONIK FONSECA MD ? COLLECTED: ? 12/28/2020 1610 ?? ORDERING LOCATION: ? [facility] ? RECEIVED: ? 12/29/2020 0716 ?? FIRST SCREEN: ?STRFUAD, DENA, CT ? PATHOLOGIST: ? TRENTON CHAVARRIA [...] NOTE: THIS SPECIMEN WAS REVIEWED BY A PROCUREMENT CONSULTANT AND/OR PATHOLOGIST ( INDICATED IN THIS REPORT) AFTER EVALUATION USING THE TabTaleP IMAGING SYSTEM. CLINICAL INFORMATION: MENSTRUAL STATUS: ? LMP (IF APPLICABLE): ? CLINICAL HISTORY/PREVIOUS PAP: ? TYPE OF NEOPLASIA (IF APPLICABLE): ? SIGNIFICANT CLINICAL FINDINGS: ? OTHER HISTORY: ? HORMONES (IF APPLICABLE): ? SUGGESTED FOLLOW-UP: FOLLOW UP WARRANTED, BASED ON CURRENT GUIDELINES AND INDIVIDUAL PATIENT CONSIDERATIONS. 12/28/2020 4:10 PM CDT 12/29/2020 7:16 AM CDT [facility] - 12/30/2020 4:44 PM CDT SCREENING OR FOLLOW-UP OF ABNORMAL RESULTS?->SCREENING GYNE SOURCE:->CERVIX RELEASE TO PATIENT->SYSTEM RELEASE us Monik Fonseca MD PATHOLOGY/CYTOLOGY ORDERABL ES Final Result [facility] [address] [place] [address], [place] [phone] documented in this encounter Visit Diagnoses Diagnosis Encounter for screening for malignant neoplasm of cervix- Primary Screening for malignant neoplasm of the cervix Screening for STD (sexually transmitted disease) Screening examination for venereal disease Bacterial vaginitis Vaginitis and vulvovaginitis, unspecified Bacterial vaginosis Vaginitis and vulvovaginitis, unspecified documented in this encounter
--- OUTSIDE RECORDS SUMMARY | 2024-06-08 07:52 | XMS_ITS | Encounter Summary ---
Author Organization [facility] Address [address] [place] [address]. [place], [place] [phone] [place] [address] Care Team Providers Care Computer Aide Name Role Phone Unavailable Primary Care Provider Unavailabl e Reason for Visit * Reason Comments Physical Annual Encounter Details Date Type Department Care Team ([facility] st Contact Info) Description 12/28/2020 4:00 PM CDT Office Visit [facility] [address] [place] [address] Monik Fonseca MD [address] [facility] [address] [place] [address] Physical (Annual) Social History Tobacco Use Types Packs/Day Years [...] Sign Reading Time Taken Comments Blood Pressure 122/84 12/28/2020 3:42 PM CDT Pulse - - Temperature - - Respiratory Rate - - Oxygen Saturation - - Inhaled Oxygen Concentration - - Weight 128.8 kg (284 lb) 12/28/2020 3:42 PM CDT Height 179.1 cm (5' 10.5 ) 12/28/2020 3:42 PM CD T Body Mass Index 40.17 12/28/2020 3:42 PM CDT documented in this encounter Progress Notes * Monik Fonseca MD - 12/28/2020 4:00 PM CDT Reason for Visit: Physical (Annual) History of Present Illness: HEALTH MAINTENANCE The [...] daily, Disp: 90 tablet, Rfl: 0 ??? cetirizine 10 MG tablet, Take 10 mg by mouth daily., Disp: , Rfl: ??? clarithromycin 250 MG/5ML suspension, Take by mouth 2 (two) times daily., Disp: , Rfl: ??? desogestrel-ethinyl estradiol (AZURETTE) 0.15-0.02/0.01 MG (16/10) tablet, Take 1 tablet by mouth daily., Disp: 84 tablet, Rfl: 3 ??? dicyclomine 20 MG tablet, Take 1 tablet (20 mg total) by mouth every 6 (six) hours., Disp: 120 tablet, Rfl: 1 ??? inFLIXimab-dyyb 100 MG injection, Inject 68.1 [...] BIOPSIES performed by Omar Johns MD at [facility] OR ulcerative pancolitis ??? COLONOSCOPY N/A 08/24/2020 COLONOSCOPY WITH COLON BIOPSY VIA LARGE COLD FORCEP AND STOOL SAMPLE FOR CDIFF performed by Omar Hawk MD at [facility] ??? TONSILLECTOMY Social History Socioeconomic History ??? Marital status: Single Spouse name: Not on file ??? Number of children: Not on file ??? Years of education: Not on file ??? Highest education level: Not on file Occupational History ??? 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 Smoking status: Never Smoker ??? Smokeless tobacco: Never Used Substance and Sexual Activity ??? Alcohol use: Yes Comment: occasional ??? Drug use: No ??? Sexual activity: Not on file Other Topics Concern ??? Not on file Social History Narrative ??? Not on file Social Determinants of Health Financial Resource Strain: ??? Difficulty of Paying Living Expenses: Food Insecurity: ??? Worried About Running Out of Food in the Last Year: ??? Ran Out of Food in the Last Year: Transportation Needs: ??? Lack of Transportation (Medical): ??? Lack of Transportation (Non-Medical): Physical Activity: ??? Days of Exercise per Week: ??? Minutes of Exercise per Session: Stress: ??? Feeling of Stress : Social Connections: ??? Frequency of Communication with Friends and Family: ??? Frequency of Social Gatherings with Friends and Family: ??? Attends Catholic Services: ??? Active Member of Clubs or Organizations: ??? Attends Club or Organization Meetings: ??? Marital Status: Intimate Partner Violence: Unknown ??? Fear of Current or Ex-Partner: Patient refused ??? Emotionally Abused: Patient refused ??? Physically Abused: Patient refused ??? Sexually Abused: Patient refused No family history on file. No family status information on file. Physical Exam: Physical Exam Constitutional: She appears well-developed. Cardiovascular: Normal rate and regular rhythm. Pulmonary/Chest: Effort normal and breath sounds normal. Abdominal: Soft. Genitourinary: Genitourinary Comments: Speculum exam is normal Pap smear was obtained. Bimanual exam difficult secondary to obesity but no obvious masses. Musculoskeletal: Normal range of motion. Neurological: She is alert. Skin: Skin is warm and dry. Filed Vitals: 12/28/20 1542 BP: 122/84 Weight: 128.8 kg (284 lb) Height: 5' 10.5 (1.791 m) Body mass index is 40.17 kg/m??. Assessment: 1. Routine general medical examination at a health care facility CHLAMYDIA TRACH PCR desogestrel-ethinyl estradiol (AZURETTE) 0.15-0.02/0.01 MG (16/10) tablet 2. Chronic rhinitis montelukast 10 MG tablet 3. Hair loss Plan: The primary encounter diagnosis was Routine general medical examination at a health care facility. Diagnoses of Chronic rhinitis and Hair loss were also pertinent to this visit. - Comply with suggestions for healthy lifestyle The primary encounter diagnosis was Routine general medical examination at a health care facility. Diagnoses of Chronic rhinitis and Hair loss were also pertinent to this visit. - All conditions are stable and compensated (except those noted above) Diagnoses and all orders for this visit: Routine general medical examination at a health care facility - CHLAMYDIA TRACH PCR; Future - desogestrel-ethinyl estradiol (AZURETTE) 0.15-0.02/0.01 MG (/5) tablet; Take 1 tablet by mouth daily. Chronic rhinitis - montelukast 10 MG tablet; Take 1 tablet (10 mg total) by mouth nightly at bedtime. Hair loss We had a detailed discussion about her conditions. She is given a pink slip to obtain labs at a later date. She was strongly encouraged to see a neurologist in regards to her seizure disorder. She states her bowels are doing relatively well. She is encouraged to follow-up with gastroenterology. Shewas asked to eat properly and exercise. Reviewed and updated this visit by provider: Return if symptoms worsen or fail to improve. MONIK FONSECA MD Referring Provider: No ref. provider found PCP: MONIK FONSECA MD * Monik Fonseca MD - 12/28/2020 4:00 PM CDT Since no HPV was detected, the ASCUS is probably due to her bacterial vaginosis. Repeat Pap smear in about a year. documented in this encounter Plan of Treatment Upcoming Encounters Date Type Department Care Team (Late st Contact Info) Description 08/21/2024 4:00 PM CDT Office Visit [facility] Medical Group Family Medicine - [place] [address] [place] [phone] Charla Campos PA-C [address] [place] [address] documented as of this encounter Procedures Procedure Name Priority Date/Time Associated Diagnosis Comments THINPREP PAP REFLEX HPV MRNA E6/E7 Routine 12/28/2020 4:10 PM CDT CHLAM/GC/TRICHOMONA S PROFILE Routine 12/28/2020 4:10 PM CDT documented in this encounter Results * THINPREP PAP REFLEX HPV MRNA E6/E7 (12/28/2020 4:10 PM CDT) HPV MRNA E6/E7 NO HPV MRNA DETECTED NO HPV MRNA DETECTED [facility] 12/28/2020 4:1 0 PM CDT 12/29/2020 7:16 AM CDT us Monik Fonseca MD PATHOLOGY/CYTOLOGY ORDERABL ES Final Result Performing Organization Address [facility]/ZIP Co de Phone Number [employer] [address] [place] [address], * CHLAM/GC/TRICHOMONAS PROFILE (12/28/2020 4:10 PM CDT) CHLAMYDIA TRACHOMATIS NEGATIVE [facility]IVE [facility] NEISSERIA GONORRHOEAE PCR NEGATIVE NEGATIVE [facility] 12/28/2020 4:10 PM CDT 12/29/2020 7:16 AM CDT Narrative [facility] - 12/29/2020 5:30 PM CDT SCREENING OR FOLLOW-UP OF ABNORMAL RESULTS?->SCREENING GYNE SOURCE:->CERVIX RELEASE TO PATIENT->SYSTEM RELEASE us Monik Fonseca MD MICROBIOLOGY - GENERAL ORDE RABLES Final Result Performing Organization Address City/[facility]/ZIP Co de Phone Number [facility] [address] [place] [address], [place] [phone] documented in this encounter Visit Diagnoses Diagnosis Routine general medical examination at a health care facility- Primary Chronic rhinitis Hair loss Alopecia, unspecified documented in this encounter
--- OUTSIDE RECORDS SUMMARY | 2024-06-08 07:52 | XMS_ITS | Encounter Summary ---
Author Organization [facility] Address [address] [place] [address]. [place], [place] [phone] [place] [address] Care Team Providers Care Quality Assurance Supervisor Body Name Role Phone Unavailable Primary Care Provider Unavailabl e Encounter Details Date Type Department Care Team (Latest Contact Info) Description 10/23/2020 Travel Social History Tobacco Use Types Packs/Day [...] have Coronavirus / COVID-19? No / Unsure 10/23/2020 1:24 PM CDT documented as of this encounter Plan of Treatment Upcoming Encounters Date Type Department Care Team (Late st Contact Info) Description 08/21/2024 4:00 PM CDT Office Visit [facility] Medical Group Family Medicine - [place] [phone] Charla Campos PA-C [address] [place] [address] documented as of this encounter Visit Diagnoses Not on filedocumented in this encounter
--- OUTSIDE RECORDS SUMMARY | 2024-06-08 07:52 | XMS_ITS | Encounter Summary ---
Author Organization [facility] Address [address] [place] [address]. [place], [place] [address] [place] [address] Care Team Providers Care Fur Mixer Name Role Phone Unavailable Primary Care Provider Unavailabl e Encounter Details Date Type Department Care Team (Latest Contact Info) Description 12/10/2020 Travel Social History Tobacco Use Types Packs/Day [...] have Coronavirus / COVID-19? No / Unsure 12/10/2020 12:47 PM CDT documented as of this encounter Plan of Treatment Upcoming Encounters Date Type Department Care Team (Late st Contact Info) Description 08/21/2024 4:00 PM CDT Office Visit [facility] Medical [facility] Family Medicine - [place] [phone] Charla Campos PA-C [address] [place] [address] documented as of this encounter Visit Diagnoses Not on filedocumented in this encounter
--- OUTSIDE RECORDS SUMMARY | 2024-06-08 07:52 | XMS_ITS | Encounter Summary ---
Author Organization [facility] Address [address] [place] [address]. [place], [place] [address] [place] [address] Care Team Providers Care Dietitian Research Name Role Phone Unavailable Primary Care Provider Unavailabl e Encounter Details Date Type Department Care Team (Latest Contact Info) Description 09/30/2020 Scan HEALTH INFO SRVCS Scanned, Documents Social [...] [facility] Medical [facility] Family Medicine - [place] [address] [place] [phone] Charla Campos PA-C [address] [place] [address] documented as of this encounter Visit Diagnoses Not on filedocumented in this encounter
--- OUTSIDE RECORDS SUMMARY | 2024-06-08 07:52 | XMS_ITS | Encounter Summary ---
Author Organization [facility] Address [address] [place] [address]. [place] [address] [place] [address] Care Team Providers Care Area Representative Name Role Phone Unavailable Primary Care Provider Unavailabl e Reason for Visit * Reason Comments Infusion Therapy * Injection (Routine) - Pending Review Specialty Diagnoses / Procedures Referred By Yodit t Referred To Contact [facility] Infusion Therapy Diagnoses K51.0 Procedures INFLIXIMAB-DYYB 10MG IV SOLR (INFLECTRA) INTRAVENOUS INFUSION FOR THERAPY UP TO 1HR INTRAVENOUS INFUSION FOR THERAPY EA ADDL HR INFUSION [facility] [place] [address] Phone: tel: fax: [facility] [place] [address] Phone: tel: fax: Referral ID Status Reason Start Date Expiration Date V isits Requested Visits Authorized [id number] Pending Review 09/23/2020 15 15 Encounter Details Date Type Department Care Team (Late st Contact Info) Description 12/02/2020 2:30 PM CDT Treatment [facility] [place], [place] [address] Omar Johns MD [address] [place] [phone] Infusion Therapy Social History Tobacco Use Types [...] Sign Reading Time Taken Comments Blood Pressure 133/87 12/02/2020 5:25 PM CDT Pulse 94 12/02/2020 5:25 PM CDT Temperature 36.6 ??C (97.9 ??F) 12/02/2020 2:32 PM CD T Respiratory Rate 16 12/02/2020 5:25 PM CDT Oxygen Saturation 98% 12/02/2020 5:25 PM CDT Inhaled Oxygen Concentration - - Weight 136.1 kg (300 lb) 12/02/2020 2:32 PM CDT Height - - Body Mass Index 41.84 10/23/2020 1:30 PM CDT documented in this encounter Progress Notes * Jeffrey England RN - 12/02/2020 2:30 PM CDT Pt tolerated infusion without incident. Pt ambulatory from department. JEFFREY ENGLAND RN documented in this encounter Plan of Treatment Upcoming Encounters Date Type Department Care Team (Late st Contact Info) Description 08/21/2024 4:00 PM CDT Office Visit [facility] Medical Group Family Medicine - [place] [address] [place] [phone] Charla Campos PA-C [address] [place] [address] documented as of this encounter Visit Diagnoses Diagnosis Ulcerative pancolitis without complication (CMS/HCC HHS/HCC)- Primary Ulcerative colitis (CMS/HCC HHS/HCC) Ulcerative colitis, unspecified documented in this encounter Administered Medications Inactive Administered Medications - up to 3 most recent administrations Medication Order MAR Action Action Date Dose Rate Site inFLIXimab-dyyb (INFLECTRA) 680 mg in sodium chloride 0.9 % IVPB 680 mg, Intravenous, Administer over 120 Minutes, Once, 1 dose, On Mon12/02/20 at 1500, 5 mg/kg INDUCTION SCHEDULE: Doses at 0, 2, and 6 weeks Use an in-line, low protein binding filter with 1.2 micron pore size or less Titrate infusion: 10 mL/hr for 15 minutes, then 20 mL/hr for 15 minutes, then 40 mL/hr for 15 minutes, then 80 mL/hr for 15 minutes, then 150 mL/hr for 30 minutes then 250 mL/hr until complete. Final concentration to be 0.4-4 mg/mLIndications:Ulcerative pancolitis without complication (CMS/HCC HHS/HCC) New Bag 12/02/2020 3:15 PM CDT 680 mg 125 mL/hr documented in this encounter
--- OUTSIDE RECORDS SUMMARY | 2024-06-08 07:52 | XMS_ITS | Encounter Summary ---
Author Organization [facility] Address [address] [place] [address]. [place] [address] [place] [address] Care Team Providers Care Boner Meat Name Role Phone Unavailable Primary Care Provider Unavailabl e Reason for Visit * Reason Comments Infusion Therapy * Injection (Routine) - Pending Review Specialty Diagnoses / Procedures Referred By Yodit t Referred To Contact [facility] Infusion Therapy Diagnoses K51.0 Procedures INFLIXIMAB-DYYB 10MG IV SOLR (INFLECTRA) INTRAVENOUS INFUSION FOR THERAPY UP TO 1HR INTRAVENOUS INFUSION FOR THERAPY EA ADDL HR INFUSION [facility] [place] [address] Phone: tel: fax: [facility] [place] [address] Phone: tel: fax: Referral ID Status Reason Start Date Expiration Date V isits Requested Visits Authorized [id number] Pending Review 09/23/2020 15 15 Encounter Details Date Type Department Care Team (Late st Contact Info) Description 10/23/2020 1:30 PM CDT Treatment [facility] [place], [place] [phone] Seble Bliss NP [address] [facility]. [address] [phone] Infusion Therapy Social History Tobacco Use Types [...] Sign Reading Time Taken Comments Blood Pressure 132/90 10/23/2020 4:33 PM CDT Pulse 96 10/23/2020 4:33 PM CDT Temperature 36.8 ??C (98.3 ??F) 10/23/2020 1:30 PM CD T Respiratory Rate 18 10/23/2020 4:33 PM CDT Oxygen Saturation 98% 10/23/2020 4:33 PM CDT Inhaled Oxygen Concentration - - Weight 136.1 kg (300 lb) 10/23/2020 1:30 PM CDT Height 180.3 cm (5' 11 ) 10/23/2020 1:30 PM CDT Body Mass Index 41.84 10/23/2020 1:30 PM CDT documented in this encounter Progress Notes * Xochitl Whitley RN - 10/23/2020 1:30 PM CDTSummary: Inflectra Patient has had bowel issues on past meds Patient refused labs due to cost of labs at hospital [facility]. She indicated she will do labs at an outpatient an outpatient facility. Patient tolerated infusion of Inflectra without side effect. Patient discharged ambulatory. Next appointment scheduled documented in this encounter Plan of Treatment Upcoming Encounters Date Type Department Care Team (Late st Contact Info) Description 08/21/2024 4:00 PM CDT Office Visit [facility] Medical Group Family Medicine - [place] [phone] Charla Campos PA-C [address] [place] [address] [phone] documented as of this encounter Visit Diagnoses Diagnosis Ulcerative pancolitis without complication (CMS/HCC HHS/HCC)- Primary documented in this encounter Administered Medications Inactive Administered Medications - up to 3 most recent administrations Medication Order MAR Action Action Date Dose Rate Site inFLIXimab-dyyb (INFLECTRA) 680 mg in sodium chloride 0.9 % IVPB 680 mg, Intravenous, Administer over 120 Minutes, Once, 1 dose, On Mon10/23/20 at 1400, INDUCTION SCHEDULE: Doses at 0, 2, and [...] until complete. Final concentration to be 0.4-4 mg/mLIndications:Ulcerativ e pancolitis without complication (CMS/HCC HHS/HCC) Rate/Dose Change 10/23/2020 3:43 PM CDT 250 mL/hr Left Arm Rate/Dose Change 10/23/2020 3:12 PM CDT 150 mL/ hr Left Arm Rate/Dose Change 10/23/2020 2:52 PM CDT 80 mL/h r Left Arm documented in this encounter
--- OUTSIDE RECORDS SUMMARY | 2024-06-08 07:52 | XMS_ITS | Encounter Summary ---
Author Organization [facility] Address [address] [place] [address]. [place], [place] [address] [place] [address] Care Team Providers Care Technical Operations Vice President Name Role Phone Unavailable Primary Care Provider Unavailabl e Encounter Details Date Type Department Care Team (Latest Contact Info) Description 12/28/2020 Travel Social History Tobacco Use Types Packs/Day [...] [facility] Medical Group Family Medicine - [place] [phone] Charla Campos PA-C [address] [place] [address] documented as of this encounter Visit Diagnoses Not on filedocumented in this encounter
--- OUTSIDE RECORDS SUMMARY | 2024-06-08 07:52 | XMS_ITS | Encounter Summary ---
Author Organization [facility] Address [address] [place] [address]. [place], [place] [address] [place] [address] Care Team Providers Care Transitional Care Nurse Name Role Phone Unavailable Primary Care Provider Unavailabl e Encounter Details Date Type Department Care Team (Latest Contact Info) Description 01/27/2021 Travel Social History Tobacco Use Types Packs/Day [...] have Coronavirus / COVID-19? No / Unsure 01/27/2021 10:46 AM CDT documented as of this encounter Plan of Treatment Upcoming Encounters Date Type Department Care Team (Late st Contact Info) Description 08/21/2024 4:00 PM CDT Office Visit [facility] Medical Group Family Medicine - [place] [phone] Charla Campos PA-C [address] [place] [phone] documented as of this encounter Visit Diagnoses Not on filedocumented in this encounter
--- OUTSIDE RECORDS SUMMARY | 2024-06-08 07:52 | XMS_ITS | Encounter Summary ---
Author Organization [facility] Address [address] [place] [address]. [place], [place] [phone] [place] [address] Care Team Providers Care Interior Paneler Name Role Phone Unavailable Primary Care Provider Unavailabl e Encounter Details Date Type Department Care Team ([facility] st Contact Info) Description 12/29/2020 7:45 AM CDT Laboratory Only [facility] [address] [facility] [address] [place] [address] Social History Tobacco Use Types [...] Description 08/21/2024 4:00 PM CDT Office Visit [facility] Medical Group Family Medicine - [place] [address] [place] [phone] Charla Campos PA-C [address] [place] [address] documented as of this encounter Procedures Procedure Name Priority Date/Time Associated Diagnosis Comments COMPREHENSIVE METABOLIC PANEL Routine 12/29/2020 7:43 AM CDT Encounter for lipid screening for cardiovascular disease LIPID PANEL Routine 12/29/2020 7:43 AM CDT Encounter for lipid screening for cardiovascular disease CBC W/DIFF AUTOMATED Routine 12/29/2020 7:43 AM CDT Fatigue, unspecified type THYROID STIM HORMONE TSH Routine 12/29/2020 7:43 AM CDT Hair loss COLLECTION VENOUS BLOOD VENIPUNCTURE Routine 12/29/2020 7:35 AM CDT Hair loss Fatigue, unspecified type Encounter for lipid screening for cardiovascular disease documented in this encounter Results * (ABNORMAL) CBC AUTO WITH DIFF (12/29/2020 7:43 AM CDT) WBC 8.4 3.6 - 10.2 10'3/UL [facility] RBC 5.00 BASED ON DOCUMENTED LEGAL SEX 10'6/UL [facility] HGB 13.2 BASED ON DOCUMENTED LEGAL SEX G/DL [facility] HCT 42.9 BASED ON DOCUMENTED LEGAL SEX % [facility] MCV 87.0 82.0 - 99.0 FL [facility] MCH 27.0 27.0 - 33.0 PG [facility] MCHC 31.0(L) 32.0 - 36.0 G/DL [facility] RDW CALCULATED 13.0 11.0 - 15.0 % [facility] PLT 316 150 - 450 10'3/UL [facility] MPV 10.8 9.8 - 12.7 FL [facility] NRBC 0.00 0 % [facility] ABS. NUCLEATED RBC'S 0.0 0 10'3/UL [facility] NEUTROPHILS % 47.0 37.0 - 72.0 % [facility] ABS. LYMPHOCYTES 41.0 16.0 - 48.0 % [facility] ABS. MONOCYTES 9.0 4.0 - 14.0 % [facility] ABS. EOSINOPHILS 2.0 0.0 - 9.0 % [facility] BASOPHILS 1.0 0.0 - 2.0 % [facility] AUTO % IMMATURE GRANULOCYTES 0.0 NO DEFINED REFERENCE RANGE % [facility] ABS. NEUTROPHILS 3.9 1.1 - 6.0 10'3/UL [facility] LYMPHOCYTES 3.4 0.7 - 3.4 10'3/UL [facility] ABS. MONOCYTES 0.7 0.3 - 1.0 10'3/UL [facility] EOSINOPHILS 0.2 0.0 - 0.6 10'3/UL [facility] ABS. BASOPHILS 0.1 0.0 - 0.1 10'3/UL [facility] AUTO ABS IMMATURE GRANULOCYTES 0.00 0.00 - 0.10 10'3/UL [facility] Comment: RELEASE TO PATIENT->SYSTEM RELEASE 12/30/2020 3:38 AM: P INDICATES PARTIAL RESULTS ON A PANEL HAVE BEEN RELEASED. ADDITIONAL RESULTS WILL FOLLOW. 12/30/2020 3:38 AM: THIS RESULT HAS BEEN FINAL VERIFIED. NO ADDITIONAL OR CHANGED RESULTS ARE EXPECTED. 12/29/2020 7:43 AM CDT 12/30/2020 3:19 AM CDT us Karson Payne MD LABORATORY Final Resul t [facility] [address] [place] [address], * THYROID STIM HORMONE, TSH (12/29/2020 7:43 AM CDT) TSH 3.01 0.30 - 5.33 UIU/ML [facility] Comment:RELEASE TO PATIENT-> SYSTEM RELEASE 12/29/2020 7:43 AM CDT 12/30/2020 3:19 AM CDT Karson Payne MD LABORATORY Final Resul t Performing Organization Address [facility] Co de Phone Number [facility] [address] [place] [address], * LIPID PANEL (12/29/2020 7:43 AM CDT) Pathologist [facility] CHOLESTEROL 137 0 - 199 MG/DL [facility] TRIGLYCERIDES 131 0.00 - 150.00 MG/DL [facility] Comment: NCEP REFERENCE VALUES FOR TRIGLYCERIDES: NORMAL: ? <150 MG/DL BORDERLINE HIGH: ?150 - 199 MG/DL HIGH: ? 200 - 499 MG/DL VERY HIGH: ?>/= 500 MG/DL HDL 45 23 - 92 MG/DL [facility] LDL (CALCULATED) 66 0 - 99 MG/DL [facility] Comment: CUTOFF VALUES RECOMMENDED BY THE NATIONAL CHOLESTEROL EDUCATION PROGRAM: DESIRABLE: ?CHOLESTEROL <200 MG/DL ? LDL <100 MG/DL BORDERLINE: ?? CHOLESTEROL 200-239 MG/DL ?LDL 101-159 MG/DL HIGHER RISK: ??CHOLESTEROL >240 MG/DL ? LDL >160 MG/DL, HDL <40 MG/DL NON HDL CHOLESTEROL 92 NO REFERENCE RANGE MG/DL [facility] Comment: A REASONABLE GOAL FOR NON-HDL CHOLESTEROL IS ONE THAT IS 30 MG/DL HIGHER THAN THE LDL CHOLESTEROL GOAL. CHOL/HDL RATIO 3.0 0.0 - 5.0 . [facility] Comment: IS PATIENT FASTING?->YES RELEASE TO PATIENT->SYSTEM RELEASE 12/29/2020 7:43 AM CDT 12/30/2020 3:19 AM CDT Karson Payne MD LABORATORY Final Resul t [facility] [address] [place] [address], * (ABNORMAL) COMPREHENSIVE METABOLIC PANEL (12/29/2020 7:43 AM CDT) SODIUM S/P/B 136 136 - 145 MMOL/L [facility] POTASSIUM S/P/B 4.3 3.5 - 5.1 MMOL/L [facility] CHLORIDE S/P/B 106 98 - 107 MMOL/L [facility] CO2 22 21 - 31 MMOL/L [facility] ANION GAP 8 4 - 13 MMOL/L [facility] BUN 9 7 - 25 MG/DL [facility] CREATININE S/P/B 0.72 0.60 - 1.30 MG/DL [facility] EGFR AFR. AMER. 122 60 - 300 ML/MIN/1.7 3 M2 [facility] EGFR NON-AFR. AMER. 100 60 - 300 ML/MIN/1.7 3 M2 [facility] CALCIUM S/P/B 9.1 8.6 - 10.2 MG/DL [facility] GLUCOSE 91 70 - 100 MG/DL [facility] TOTAL PROTEIN S/P/B 7.0 6.4 - 8.3 G/DL [facility] ALBUMIN S/P/B 4.0 3.5 - 5.0 G/DL [facility] ALT 4(L) 9 - 43 UNITS/L [facility] ALKALINE PHOSPHATASE S/P/B 52 34 - 104 UNITS/L [facility] AST 11(L) 13 - 39 UNITS/L [facility] BILIRUBIN TOTAL S/P/B 0.4 0.2 - 1.2 MG/DL [facility] Comment: IS PATIENT FASTING?->YES RELEASE TO PATIENT->SYSTEM RELEASE GFR() IS REPORTED 21% GREATER THAN GFR(OTHER). THE USE OF RACE IN KIDNEY FUNCTION ESTIMATING EQUATIONS IS NO LONGER RECOMMENDED AND MAY RESULT IN OVERESTIMATION. IN THE NEAR FUTURE AN APPROACH THAT DISREGARDS RACE WILL BE IMPLEMENTED. 12/29/2020 7:43 AM CDT 12/30/2020 3:19 AM CDT us Karson Payne MD LABORATORY Final Resul t Performing Organization Address City/[facility]/ZIP Co de Phone Number [facility] [address] [place] [phone] documented in this encounter Visit Diagnoses Diagnosis Hair loss- Primary Alopecia, unspecified Fatigue, unspecified type Encounter for lipid screening for cardiovascular disease documented in this encounter
--- OUTSIDE RECORDS SUMMARY | 2024-06-08 07:52 | XMS_ITS | Encounter Summary ---
Author Organization [facility] Address [address] [place] [address]. [place], [place] [phone] [place] [address] Care Team Providers Care Shotblast Operator Name Role Phone Unavailable Primary Care Provider Unavailabl e Encounter Details Date Type Department Care Team (Latest Contact Info) Description 11/04/2020 Travel Social History Tobacco Use Types Packs/Day [...] have Coronavirus / COVID-19? No / Unsure 11/04/2020 2:07 PM CDT documented as of this encounter Plan of Treatment Upcoming Encounters Date Type Department Care Team (Late st Contact Info) Description 08/21/2024 4:00 PM CDT Office Visit [facility] Medical Group Family Medicine - [place] [phone] Charla Campos PA-C [address] [place] [address] documented as of this encounter Visit Diagnoses Not on filedocumented in this encounter
--- OUTSIDE RECORDS SUMMARY | 2024-06-08 07:52 | XMS_ITS | Encounter Summary ---
Author Organization [facility] Address [facility] [place] [address] [place] [address] Care Team Providers Care Sleeve Turner Name Role Phone Unavailable Primary Care Provider Unavailabl e Encounter Details Date Type Department Care Team (Late st Contact Info) Description 09/28/2020 Orders Only [facility] Medical Group Multispecialty Care - [address], [address] [place] [address] Seble Bliss, JORI [address] [facility]. [address] [place] [address] Social History Tobacco Use Types Packs/Day Years [...] Description 08/21/2024 4:00 PM CDT Office Visit [facility] Medical Group Family Medicine - [place] [address] [place] [phone] Charla Campos PA-C 100 [place] [address] documented as of this encounter Visit Diagnoses Diagnosis Ulcerative pancolitis without complication (CMS/HCC HHS/HCC) documented in this encounter
--- OUTSIDE RECORDS SUMMARY | 2024-06-08 07:52 | XMS_ITS | Encounter Summary ---
Author Organization [facility] Address [address] [place] [address]. [place] [address] [place] [address] Care Team Providers Care Smeller Name Role Phone Unavailable Primary Care Provider Unavailabl e Reason for Visit * Reason Onset Date Comments Forms 10/02/2020 Encounter Details Date Type Department Care Team (Late st Contact Info) Description 10/02/2020 Telephone [facility] Medical Group Multispecialty Care - [address], [address] [place] [address] Omar Johns MD [address] [facility] [address] [place] [address] Forms Social History Tobacco Use Types Packs/Day Years [...] encounter Progress Notes * Xochitl Escobedo - 10/08/2020 11:32 AM CDT Patient was informed that we will have Dr. Johns sign off on paper work and faxed it back to [employer] for [employer] assistance. * Sailaja Packer - 10/07/2020 9:08 AM CDT Pt stated on form for inflectra that the doctor needs to sign Sec A not the Nurse Prac. Please havedoctor sign and date. Then send back. * Xochitl Escobedo - 10/05/2020 10:42 AM CDT Spoke with patient she was informed that the patient assistance forms will be faxed over to [employer] for [employer] assistance. * Sailaja Packer - 10/05/2020 10:30 AM CDT Pt missed a call this morning from our office, she is asking to be called back. She is also asking if her forms were faxed? * Xochitl Escobedo - 10/02/2020 11:03 AM CDT LVM for pt to give the office a call we received a copy of the [employer] patient assistance forms to be completed and faxed back. Spoke with patient she will stop by the [facility] office this afternoon and complete paperwork. Formswill be left up front for her. documented in this encounter Plan of Treatment Upcoming Encounters Date Type Department Care Team (Late st Contact Info) Description 08/21/2024 4:00 PM CDT Office Visit [facility] Medical Group Family Medicine - [place] [phone] Charla Campos PA-C [address] [place] [address] documented as of this encounter Visit Diagnoses Not on filedocumented in this encounter
--- OUTSIDE RECORDS SUMMARY | 2024-06-08 07:52 | XMS_ITS | Encounter Summary ---
Author Organization [facility] Address [facility] [facility] [place] [address] [place] [address] Care Team Providers Care Shelter Director Name Role Phone Unavailable Primary Care Provider Unavailabl e Reason for Visit * Reason Onset Date Comments WorkComp/Disability/FMLA Report (SCAN) Encounter Details Date Type Department Care Team (Late st Contact Info) Description 01/11/2021 Telephone [facility] Medical Group Multispecialty Care - [facility] [address] [facility], [address] [place] [address] Omar Johns MD [address] [facility] [address] [place] [address] WorkComp/Disability/F MLA Report (SCAN) Social History Tobacco Use Types Packs/Day Years [...] encounter Progress Notes * Xochitl Escobedo - 01/12/2021 11:32 AM CDT Patient said when when she was last in office it was discussed that she should start on Imuran. Shesaid there wasn't anything about labs being discussed She asked should she have the TPMT done? Please advise? * Gita Bear - 01/12/2021 11:25 AM CDT Pt called office back transferred call to Xochitl * Xochitl Escobedo - 01/12/2021 10:42 AM CDT We will be checking with Dr. Johns on this. * Xochitl Escobedo - 01/12/2021 10:38 AM CDT LVM fo pt to give the office a call. * Priscilla Marshall - 01/11/2021 3:51 PM CDT Patient is calling to get an update on her FMLA papers that were faxed to office after her November appointment. Patient also inquiring about prescription that was suppose to be sent into her pharmacy. Call patient to discuss both subjects. Call back number [phone]. documented in this encounter Plan of Treatment Upcoming Encounters Date Type Department Care Team (Late st Contact Info) Description 08/21/2024 4:00 PM CDT Office Visit [facility] Medical Group Family Medicine - [place] [address] [place] [phone] Charla Campos PA-C [address] [place] [address] documented as of this encounter Visit Diagnoses Not on filedocumented in this encounter
--- OUTSIDE RECORDS SUMMARY | 2024-06-08 07:52 | XMS_ITS | Encounter Summary ---
Author Organization [facility] Address [address] [place] [address]. [place] [address] [place] [address] Care Team Providers Care Regrind Mill Operator Name Role Phone Unavailable Primary Care Provider Unavailabl e Reason for Visit * Reason Onset Date Comments Forms 12/03/2020 Encounter Details Date Type Department Care Team (Late st Contact Info) Description 12/03/2020 Telephone [facility] Multispecialty Care - [address], [address] [place] [address] Omar Johns MD 3 [facility] [address] [place] [address] Forms Social History Tobacco Use Types Packs/Day [...] encounter Progress Notes * Xochitl Escobedo - 12/04/2020 8:46 AM CDT Spoke with patient appt scheduled. * Sailaja Packer - 12/03/2020 1:30 PM CDT Pt would like to speak to someone re: some forms she needs filled out. She is asking can they be dropped off or does she need an office appt? Also, when is a good time to drop them off if no appt is needed and which office? documented in this encounter Plan of Treatment Upcoming Encounters Date Type Department Care Team (Late st Contact Info) Description 08/21/2024 4:00 PM CDT Office Visit [facility] Family Medicine - [place] [address] [place] [phone] Charla Campos PA-C [address] [place] [address] documented as of this encounter Visit Diagnoses Not on filedocumented in this encounter
--- OUTSIDE RECORDS SUMMARY | 2024-06-08 07:52 | XMS_ITS | Encounter Summary ---
Author Organization [facility] Address [address] [place] [address]. [place] [address] [place] [address] Care Team Providers Care Apartment Leasing Agent Name Role Phone Unavailable Primary Care Provider Unavailabl e Reason for Visit * Reason Comments Ulcerative Colitis follow up WorkComp/Disability/FMLA Report (SCAN) n eds fmla foms * Consultation/Treatment (Routine) - Closed Specialty Diagnoses / Procedures Referred By Contact Referred To Contact NURSE PRACTITIONER / GASTROENTEROLOGY Diagnoses discuss colitis Procedures FOLLOW UP Karson Payne MD [address] [facility] [address] [place] [address] Phone: tel: fax: Seble Bliss NP 3 [facility]. [address] [address] Phone: tel:[phone] fax:[phone] Referral ID Status Reason Start Date Expiration Date Visits Re quested Visits Authorized [id number] Closed 07/23/2020 08/20/2021 100 100 Encounter Details Date Type Department Care Team (Latest Contact Info) Description 12/10/2020 1:00 PM CDT Office Visit [facility] Multispecialty Care - [facility] [address] [facility] [place] [address] Omar Johns MD 3 [facility] [address] [place] [address] Ulcerative Colitis (follow up); WorkComp/Disability/ FMLA Report (SCAN) (neds fmla foms) Social History Tobacco Use Types Packs/Day Years [...] Reading Time Taken Comments Blood Pressure 122/88 12/10/2020 12:58 PM CDT Pulse 97 12/10/2020 12:58 PM CDT Temperature 36.6 ??C (97.9 ??F) 12/10/2020 12:58 PM C DT Respiratory Rate 16 12/10/2020 12:58 PM CDT Oxygen Saturation 98% 12/10/2020 12:58 PM CDT Inhaled Oxygen Concentration - - Weight 128.4 kg (283 lb) 12/10/2020 12:58 PM CDT Height 180.3 cm (5' 11 ) 12/10/2020 12:58 PM CDT Body Mass Index 39.47 12/10/2020 12:58 PM CDT documented in this encounter Progress Notes * Omar Johns MD - 12/10/2020 1:00 PM CDT Images from the original note were not included. Gastroenterology Established Visit Reason for Visit: Ulcerative Colitis (follow up) and WorkComp/Disability/FMLA Report (SCAN) (neds fmla foms) History of Present Illness: Patient is here for FMLA papers. She forgot to bring with her however. She has had 3 infusions now of the Inflectra and is currently on azathioprine 50 mg daily. She is doing better but feels like itonly lasts about 3 weeks. Medications: Current Outpatient Medications: ??? AZATHIOPRINE 50 MG tablet, Take 1 tablet by mouth once daily, Disp: 90 tablet, Rfl: 0 ??? AZURETTE 0.15-0.02/0.01 MG (16/10) tablet, Take 1 tablet by mouth once daily, Disp: 84 tablet, Rfl: 0 ??? dicyclomine 20 MG tablet, Take 1 [...] SECOND WEEK DIRECTED, Disp: , Rfl: ??? Levocetirizine Dihydrochloride (XYZAL OR), , Disp: , Rfl: ??? adalimumab (HUMIRA PEN) 40 MG/0.4ML pen-injector kit, Citrate free formula. Inject 40 mg (0.4 ml) pen Subcutaneously every other week., Disp: 2 each, Rfl: 4 ??? cetirizine 10 MG tablet, Take 10 mg by mouth daily., Disp: , Rfl: ??? famotidine 20 MG tablet, Take 1 tablet (20 mg total) by mouth 2 (two) times daily., Disp: 60 tablet, Rfl: 2 Allergies: No Known Allergies Medical History: Past Medical History: Diagnosis Date ??? Seizures (CMS/HCC) ??? Ulcerative colitis (CMS/HCC) 06/28/2019 Dr. Omar Johns moderate to severe reed ulcerative colitis Surgical History: Past Surgical History: Procedure Laterality Date ??? COLONOSCOPY N/A 06/28/2019 COLONOSCOPY WITH BIOPSIES performed by Omar Johns MD at [facility] OR ulcerative pancolitis ??? COLONOSCOPY N/A 08/24/2020 COLONOSCOPY WITH COLON BIOPSY VIA LARGE COLD FORCEP AND STOOL SAMPLE FOR CDIFF performed by Omar Hawk MD at [facility] ??? TONSILLECTOMY PE: Filed Vitals: 12/10/20 1258 BP: 122/88 Pulse: 97 Resp: 16 Temp: 97.9 ??F (36.6 ??C) SpO2: 98% Weight: 128.4 kg (283 lb) Height: 5' 11 (1.803 m) General: In NAD, pleasant and appropriate HEENT: Anicteric Skin: Anicteric, no rashes Neuro: A&Ox3 Labs: Labs Reviewed @LAB@ Diagnoses/Impression: Reed ulcerative colitis. Some improvement with infusion therapy with Inflectra. This was only after third dose so will continue same. However we may have to shorten the interval of her dosing. We willcheck a TPMT level and asked her to bring the FMLA papers for review. Patient is also already on low-dose azathioprine 50 mg daily so therefore will not add Imuran. Recommendations and Plan: TPMT OMAR JOHNS MD 12/12/2020 Voice recognition software utilized documented in this encounter Plan of Treatment Upcoming Encounters Date Type Department Care Team (Late st Contact Info) Description 08/21/2024 4:00 PM CDT Office Visit [facility] Family Medicine - [place] [phone] Charla Campos PA-C [address] [place] [address] documented as of this encounter Visit Diagnoses Diagnosis Ulcerative pancolitis without complication (CMS/HCC HHS/HCC)- Primary documented in this encounter
--- OUTSIDE RECORDS SUMMARY | 2024-06-08 07:52 | XMS_ITS | Encounter Summary ---
Author Organization [facility] Address [address] [place] [address]. [place], [place] [phone] [place] [address] Care Team Providers Care Equal Opportunity Assistant Name Role Phone Unavailable Primary Care Provider Unavailabl e Encounter Details Date Type Department Care Team (Latest Contact Info) Description 01/12/2021 Scan HEALTH INFO SRVCS Scanned, Documents Social [...] Description 08/21/2024 4:00 PM CDT Office Visit [facility] Medical Group Family Medicine - [place] [phone] Charla Campos PA-C [address] [place] [address] documented as of this encounter Visit Diagnoses Not on filedocumented in this encounter
--- OUTSIDE RECORDS SUMMARY | 2024-06-08 07:52 | XMS_ITS | Encounter Summary ---
Author Organization [facility] Address [address] [place] [address]. [place] [address] [place] [address] Care Team Providers Care Labor Arbitrator Hearing Office Name Role Phone Unavailable Primary Care Provider Unavailabl e Reason for Visit * Reason Onset Date Comments Medication 10/13/2020 Encounter Details Date Type Department Care Team (Late st Contact Info) Description 10/13/2020 Telephone [facility] Medical Group Multispecialty Care - [address], [address] [place] [address] Omar Johns MD 3 [facility] [address] [place] [address] Medication Social History Tobacco Use Types Packs/Day [...] encounter Progress Notes * Xochitl Escobedo - 10/13/2020 9:56 AM CDT Spoke with Joaquina Tavarez at [facility] patient has been approved for assistance with [employer] Per Joaquina benefits will go back 90 days and will in 04/2021. ID # is [id number] Gr# [id number] she said a letter will be sent to patient and to the office. Patient was informed of approval. documented in this encounter Plan of Treatment Upcoming Encounters Date Type Department Care Team (Late st Contact Info) Description 08/21/2024 4:00 PM CDT Office Visit [facility] Medical Group Family Medicine - [place] [address] [place] [phone] Charla Campos PA-C [address] [place] [phone] documented as of this encounter Visit Diagnoses Not on filedocumented in this encounter
--- OUTSIDE RECORDS SUMMARY | 2024-06-08 07:52 | XMS_ITS | Encounter Summary ---
Author Organization [facility] Address [address] [place] [address]. [place] [address] [place] [address] Care Team Providers Care Port Cdl A Driver Name Role Phone Unavailable Primary Care Provider Unavailabl e Reason for Visit * Reason Comments Infusion Therapy * Injection (Routine) - Pending Review Specialty Diagnoses / Procedures Referred By Yodit t Referred To Contact [facility] Infusion Therapy Diagnoses K51.0 Procedures INFLIXIMAB-DYYB 10MG IV SOLR (INFLECTRA) INTRAVENOUS INFUSION FOR THERAPY UP TO 1HR INTRAVENOUS INFUSION FOR THERAPY EA ADDL HR INFUSION [facility] [place] [address] Phone: tel: fax: [facility] [place] [address] Phone: tel: fax: Referral ID Status Reason Start Date Expiration Date V isits Requested Visits Authorized [id number] Pending Review 09/23/2020 15 15 Encounter Details Date Type Department Care Team (Late st Contact Info) Description 01/27/2021 11:00 AM CDT Treatment [facility] [place], [place] [id number] Omar Johns MD [address] [place] [address] [phone] Infusion Therapy Social History Tobacco Use Types [...] AM CDT documented as of this encounter Last Filed Vital Signs Vital Sign Reading Time Taken Comments Blood Pressure 117/75 01/27/2021 1:15 PM CDT Pulse 85 01/27/2021 1:15 PM CDT Temperature 36.7 ??C (98 ??F) 01/27/2021 1:15 PM CDT Respiratory Rate 20 01/27/2021 1:15 PM CDT Oxygen Saturation 99% 01/27/2021 1:15 PM CDT Inhaled Oxygen Concentration - - Weight 129.3 kg (285 lb) 01/27/2021 10:53 AM CDT Height 179.1 cm (5' 10.5 ) 01/27/2021 10:53 AM C DT Body Mass Index 40.32 01/27/2021 10:53 AM CDT documented in this encounter Progress Notes * Carly Moseley RN - 01/27/2021 11:00 AM CDT Pt tolerated inflectra well with out complications. documented in this encounter Plan of Treatment Upcoming Encounters Date Type Department Care Team (Late st Contact Info) Description 08/21/2024 4:00 PM CDT Office Visit [facility] Medical Group Family Medicine - [place] [address] [place] [phone] Charla Campos PA-C [address] [place] [address] documented as of this encounter Visit Diagnoses [...] over 120 Minutes, Once, 1 dose, On Mon01/27/21 at 1115, MAINTENANCE SCHEDULE Use an in-line, low protein [...] pancolitis without complication (CMS/HCC HHS/HCC) New Bag 01/27/2021 11:11 AM CDT 650 mg 125 mL/hr documented in this encounter
--- OUTSIDE RECORDS SUMMARY | 2024-06-08 07:52 | XMS_ITS | Encounter Summary ---
Author Organization [facility] Address [address] [place] [address]. [place] [address] [place] [address] Care Team Providers Care Automotive Vehicle Inspector Name Role Phone Unavailable Primary Care Provider Unavailabl e Reason for Visit * Reason Comments Infusion Therapy * Injection (Routine) - Pending Review Specialty Diagnoses / Procedures Referred By Yodit t Referred To Contact [facility] Infusion Therapy Diagnoses K51.0 Procedures INFLIXIMAB-DYYB 10MG IV SOLR (INFLECTRA) INTRAVENOUS INFUSION FOR THERAPY UP TO 1HR INTRAVENOUS INFUSION FOR THERAPY EA ADDL HR INFUSION [facility] [place] [address] Phone: tel: fax: [facility] [place] [address] Phone: tel: fax: Referral ID Status Reason Start Date Expiration Date V isits Requested Visits Authorized [id number] Pending Review 09/23/2020 15 15 Encounter Details Date Type Department Care Team (Late st Contact Info) Description 11/04/2020 2:30 PM CDT Treatment [facility] [place], [place] [address] Omar Johns MD [address] [place] [phone] Infusion Therapy Social History Tobacco Use Types [...] Sign Reading Time Taken Comments Blood Pressure 128/90 11/04/2020 4:55 PM CDT Pulse 93 11/04/2020 4:55 PM CDT Temperature 36.7 ??C (98 ??F) 11/04/2020 4:35 PM CDT Respiratory Rate 18 11/04/2020 4:55 PM CDT Oxygen Saturation 98% 11/04/2020 4:55 PM CDT Inhaled Oxygen Concentration - - Weight 136.1 kg (300 lb) 11/04/2020 2:19 PM CDT Height - - Body Mass Index 41.84 10/23/2020 1:30 PM CDT documented in this encounter Progress Notes * Xochitl Whitley RN - 11/04/2020 2:30 PM CDTSummary: Inflectra Patient indicated she has not had diarrhea since her first infusion but had gas and some discomfort. She is not having frequent bowel movements and is not use to the change. She is feeling better today. She tolerated infusion without side effect. Next appointment scheduled. documented in this encounter Plan of Treatment Upcoming Encounters Date Type Department Care Team (Late st Contact Info) Description 08/21/2024 4:00 PM CDT Office Visit [facility] Medical Group Family Medicine - [place] [address] [place] [phone] Charla Campos PA-C [address] [place] [address] documented as of this encounter Visit Diagnoses Diagnosis Ulcerative pancolitis without complication (CMS/HCC HHS/HCC)- Primary documented in this encounter Administered Medications Inactive Administered Medications - up to 3 most recent administrations Medication Order MAR Action Action Date Dose Rate Site inFLIXimab-dyyb (INFLECTRA) 680 mg in sodium chloride 0.9 % IVPB 680 mg, Intravenous, Administer over 120 Minutes, Once, 1 dose, On Mon11/04/20 at 1445, 5 mg/kg ordered dosage INDUCTION SCHEDULE: Doses at 0, 2, and [...] pancolitis without complication (CMS/HCC HHS/HCC) New Bag 11/04/2020 2:35 PM CDT 680 mg 125 mL/hr Right Arm documented in this encounter
--- OUTSIDE RECORDS SUMMARY | 2024-06-08 07:53 | XMS_ITS | Encounter Summary ---
Author Organization [facility] Address [address] [place] [address]. [place], [place] [address] [place] [address] Care Team Providers Care Revenue Cycle Consultant Name Role Phone Unavailable Primary Care Provider Unavailabl e Encounter Details Date Type Department Care Team (Latest Contact Info) Description 08/26/2020 Scan HEALTH INFO SRVCS Scanned, Documents Social [...] have Coronavirus / COVID-19? No / Unsure 08/24/2020 10:38 AM CDT documented as of this encounter Plan of Treatment Upcoming Encounters Date Type Department Care Team (Late st Contact Info) Description 08/21/2024 4:00 PM CDT Office Visit [facility] Medical Group Family Medicine - [place] [phone] Charla Campos PA-C [address] [place] [address] documented as of this encounter Visit Diagnoses Not on filedocumented in this encounter
--- OUTSIDE RECORDS SUMMARY | 2024-06-08 07:53 | XMS_ITS | Encounter Summary ---
Author Organization [facility] Address [address] [place] [address]. [place] [address] [place] [address] Care Team Providers Care Tube Sizer Operator Name Role Phone Unavailable Primary Care Provider Unavailabl e Reason for Visit * Reason Onset Date Comments Question 09/14/2020 Encounter Details Date Type Department Care Team (Late st Contact Info) Description 09/14/2020 Telephone [facility] Medical Group Multispecialty Care - [facility] [address] [facility], [address] [place] [address] Seble Bliss NP [address] [facility] [place] [address] Question Social History Tobacco Use Types Packs/Day [...] AM CDT documented as of this encounter Progress Notes * Xochitl Escobedo - 09/24/2020 9:25 AM CDT Spoke with patient she was informed that Humira refill has been sent to [facility] and we are waitingon auth request on the Inflectra. * Xochitl Escobedo - 09/23/2020 1:14 PM CDT Spoke with patient we will be checking with the provider on this. * Caridad Azul - 09/23/2020 8:32 AM CDT Paige called again today to see if someone will call her about her questions. Please call her to discuss * Sailaja Packer - 09/23/2020 8:25 AM CDT Pt calling again on Humira and [facility] not receiving anything from us. Please call pt alma rosa, she said she called yesterday as well. * Kaitlynn Healy - 09/22/2020 8:25 AM CDT Patient talked to [facility] and they told her that they never received a script for her new infusionmedication... Also... patient is needing a refill on her Humira ( which her pharmacy says that theyfaxed us several times, and they can not get the fax to go through). Please contact patient as soonas possible regarding her prescriptions . Patient has been waiting. * Seble Bliss NP - 09/14/2020 12:12 PM CDT Pt notes she is having loose bm 3 days a week. Pt notes she took off 5 days off work for a break. Eating in general triggers the diarrhea. Waiting on Inflectra to be approved. Dicyclomine is being used TID and is helping very little. Immodium is too strong per pt. Instructed pt to continue the Humira every 14 days until approved IV can be accomplished. No further questions. * Xochitl Escobedo - 09/14/2020 11:42 AM CDT Spoke with patient she was told that the Entyvio was denied we're waiting to here back from her insurance on the Inflectra. Please advise? Patient said she took her Humira last week Monday and she was due to take it yesterday. She asked is it okay to go ahead and do it or will it be to soon. What should she do? * Leonardo Barboza - 09/14/2020 8:37 AM CDT Pt called and stated that she needs to know what is going on with her Care Plan. She stated that she needs to know if her insurance has denied the treatment that JORI Bliss wants her to get. Please give Pt a call back to discuss [phone] documented in this encounter Plan of Treatment Upcoming Encounters Date Type Department Care Team (Late st Contact Info) Description 08/21/2024 4:00 PM CDT Office Visit [facility] Medical Group Family Medicine - [place] [phone] Charla Campos PA-C [address] [place] [address] documented as of this encounter Visit Diagnoses Not on filedocumented in this encounter
--- OUTSIDE RECORDS SUMMARY | 2024-06-08 07:53 | XMS_ITS | Encounter Summary ---
Author Organization [facility] Address [address] [place] [address]. [place], [place] [address] [place] [address] Care Team Providers Care Glaciologist Name Role Phone Unavailable Primary Care Provider Unavailabl e Encounter Details Date Type Department Care Team (Latest Contact Info) Description 08/19/2020 Travel Social History Tobacco Use Types Packs/Day [...] have Coronavirus / COVID-19? No / Unsure 07/23/2020 2:43 PM LABELING SPECIALIST documented as of this encounter Plan of Treatment Upcoming Encounters Date Type Department Care Team (Late st Contact Info) Description 08/21/2024 4:00 PM CDT Office Visit [facility] Medical Group Family Medicine - [place] [address] [place] [phone] Charla Campos PA-C [address] [place] [address] documented as of this encounter Visit Diagnoses Not on filedocumented in this encounter
--- OUTSIDE RECORDS SUMMARY | 2024-06-08 07:53 | XMS_ITS | Encounter Summary ---
Author Organization [facility] Address [address] [place] [address]. [place] [address] [place] [address] Care Team Providers Care Construction Carpenters Helper Name Role Phone Unavailable Primary Care Provider Unavailabl e Encounter Details Date Type Department Care Team (Latest Contact Info) Description 08/21/2020 11:05 AM CDT - 08/21/2020 11:59 PM CDT Hospital Encounter [facility] [place] [address] Omar Johns MD [address] [facility] [address] [place] [address] Discharge Disposition: Home or Self Care (Routine [...] COVID-19? No / Unsure 07/23/2020 2:43 PM KNOCKOUT WORKER documented as of this encounter Medications at Time of Discharge adalimumab (HUMIRA PEN) 40 MG/0.4ML pen-injector kitIndications:Ulcer ative pancolitis without complication ([facility] HHS/[facility]) Citrate free formula. Inject 40 mg (0.4 ml) pen Subcutaneously every other week. 2 each 4 0 09/24/19 21 azaTHIOprine 50 MG tabletIndications:Ul cerative pancolitis without complication ([facility] HHS/[facility]) Take 1 tablet (50 mg total) by mouth daily. 90 tablet 1 0 10/14/19 21 AZURETTE 0.15-0.02/0.01 MG (16/10) tabletIndications:Ro utine general medical examination at a health care facility Take 1 tablet by mouth once daily 84 tablet 1 12/29/19 21 cetirizine 10 MG tablet Take 10 mg by mouth daily. 08/16/19 23 dicyclomine 20 MG tabletIndications:Ch ronic diarrhea Take 1 tablet (20 mg total) by mouth every 6 (six) hours. 120 tablet 1 0 08/16/[address] sprinkle 125 MG capsuleIndications:S eizure disorder ([facility] HHS/HCC) Take 3 capsules in the morning and 4 capsules in the evening. 210 capsule 1 9 08/25/19 21 levETIRAcetam 750 MG tablet TAKE 1 TABLET TWICE DAILY FOR THE FIRST WEEK THEN TAKE 2 TABLET TWICE DAILY FOR THE SECOND WEEK DIRECTED 0 05/17/20 22 Levocetirizine Dihydrochloride (XYZAL OR) 12/29/19 21 vancomycin 250 MG capsuleIndications:U lcerative pancolitis without complication (CMS/HCC HHS/HCC) Take 1 capsule (250 mg total) by mouth 4 (four) times daily for 14 days. 56 capsule 1 09/08/19 21 documented as of this encounter Plan of Treatment Upcoming Encounters Date Type Department Care Team (Late st Contact Info) Description 08/21/2024 4:00 PM CDT Office Visit [facility] Medical Group Family Medicine - [place] [address] [place] [phone] Charla Campos PA-C [address] [place] [address] documented as of this encounter Procedures Procedure Name Priority Date/Time Associated Diagnosis Comments CORONAVIRUS (COVID 19) STAT 08/21/2020 11:17 AM CDT Pancolitis (CMS/HCC HHS/[facility]) documented in this encounter Results * PRE-SURGICAL/PRE-PROCEDURE CORONAVIRUS (COVID 19) (08/21/2020 11:17 AM CDT) CORONAVIRUS SARS COV 2 PCR (RESP) NOT DETECTED NOT DETECTED 08/22/2020 10:36 AM CDT [facility] Comment: A Not Detected (negative) test result for this test means that SARS- CoV-2 RNA was not present in the specimen above the limit of detection. A negative result does not rule out the possibility of COVID-19 and should not be used as the sole basis for treatment or patient management decisions. ??If COVID-19 is still suspected, based on exposure history together with other clinical findings, re-testing should be considered in consultation with public health authorities. Laboratory test results should always be considered in the context of clinical observations and epidemiological data in making a final diagnosis and patient management decisions. Please review the Fact Sheets and FDA authorized labeling available for health care providers and patients using the following websites: https://www.creads.Exerscrip/home/Covid-19/HCP/QuestIVD/fact- sheet.html https://www.creads.Exerscrip/home/Covid-19/Patients/ QuestIVD/fact-sheet.html This test has been authorized by the FDA under an Emergency Use Authorization (EUA) for use by authorized laboratories. Due to the current public health emergency, [facility] is receiving a high volume of samples from a wide variety of swabs and media for COVID-19 testing. In order to serve patients during this public health crisis, samples from appropriate clinical sources are being tested. Negative test results derived from specimens received in non-commercially manufactured viral collection and transport media, or in media and sample collection kits not yet authorized by FDA for COVID-19 testing should be cautiously evaluated and the patient potentially subjected to extra precautions such as additional clinical monitoring, including collection of an additional specimen. Methodology: ??Nucleic Acid Amplification Test (NAAT) includes RT-PCR or TMA Additional information about COVID-19 can be found at the [employer] website: www.Visual Pro [employer].Exerscrip/Covid19. Test performed at [facility] [place] [id number] [place] [address] ??[phone] Director: DENA ALMAGUER DO,MPH FIRST TEST YES 08/21/2020 11:24 AM CDT [facility] EMPLOYED IN HEALTHCARE NO 08/21/2020 11:24 AM CDT [facility] SYMPTOMATIC DEFINED BY CDC NO 08/21/2020 11:24 AM CDT [facility] DATE OF SYMPTOM ONSET NO 08/21/2020 2:22 PM CDT [facility] HOSPITALIZATION STATUS NO 08/21/2020 11:24 AM CDT [facility] PATIENT IN ICU NO 08/21/2020 11:24 AM CDT [facility] RESIDENT OF [facility] NO 08/21/2020 11:24 AM CDT [facility] NOT 08/21/2020 11:24 AM CDT [facility] PATIENT'S RACE WHITE OR 08/21/2020 11:24 AM CDT [facility] ETHNICITY NONHISPANIC 08/21/2020 11:24 AM CDT [facility] SOURCE (QST) NASOPHARYNGEAL SWAB 08/21/2020 11:24 AM CDT [facility] NASOPHARYNGEAL SWAB / Unknown 08/21/2020 11:17 AM CDT us Omar Johns MD MICROBIOLOGY - GENERAL ORDERABLE S Final Result [facility] [address] [place] [address], [place] [address], documented in this encounter Visit Diagnoses Diagnosis Pancolitis ([facility]/HCC [facility]) [place] ulcerative (chronic) colitis documented in this encounter Additional Health Concerns Infection Onset Date Last Indicated Resolved Time COVID-19 Rule Out 08/21/2020 08/21/2020 08/22/2020 10:36 AM CDT documented as of this encounter
--- OUTSIDE RECORDS SUMMARY | 2024-06-08 07:53 | XMS_ITS | Encounter Summary ---
Author Organization [facility] Address [address] [place] [address]. [place], [place] [address] [place] [address] Care Team Providers Care Livestock Commission Agent Name Role Phone Unavailable Primary Care Provider Unavailabl e Encounter Details Date Type Department Care Team (Latest Contact Info) Description 09/10/2020 Scan HEALTH INFO SRVCS Scanned, Documents Social [...] Description 08/21/2024 4:00 PM CDT Office Visit [facility] Medical Group Family Medicine - [place] [phone] Charla Campos PA-C [address] [place] [address] documented as of this encounter Visit Diagnoses Not on filedocumented in this encounter
--- OUTSIDE RECORDS SUMMARY | 2024-06-08 07:53 | XMS_ITS | Encounter Summary ---
Author Organization [facility] Address Critical access hospital[address] [facility] [place] [address] [place] [address] Care Team Providers Care Cmo Name Role Phone Unavailable Primary Care Provider Unavailabl e Encounter Details Date Type Department Care Team (Late st Contact Info) Description 09/23/2020 Orders Only [facility] Medical Group Multispecialty Care - [address], [address] [place] [address] Xochitl Escobedo, GUERITA Social History Tobacco Use Types Packs/Day Years [...] [facility] Family [facility] - [place] [address] [place] [address] Charla Campos PA-C [address] [place] [address] documented as of this encounter Visit Diagnoses Not on filedocumented in this encounter
--- OUTSIDE RECORDS SUMMARY | 2024-06-08 07:53 | XMS_ITS | Encounter Summary ---
Author Organization [facility] Address [facility] [place] [address] [place] [address] Care Team Providers Care Concrete Pipe Plant Supervisor Name Role Phone Unavailable Primary Care Provider Unavailabl e Reason for Visit * Auth/Cert Specialty Diagnoses / Procedures Referred By Yodit kenney Referred To Contact Diagnoses Ulcerative colitis (CMS/HCC HHS/HCC) Ulcerative pancolitis without complication (CMS/HCC HHS/HCC) pancolitis, Ulcerative coliltis, frequent stools Procedures COLONOSCOPY Referral ID Status Reason Start Date Expiration Date Visits Re quested Visits Authorized [id number] 1 1 Encounter Details Date Type Department Care Team (Latest Contact Info) Description 08/24/2020 10:36 AM CDT - 08/24/2020 2:38 PM T Hospital Encounter [facility] [place] [address] Omar Johns MD [address] [address] Discharge Disposition: Home or Self Care (Routine [...] Sign Reading Time Taken Comments Blood Pressure 120/82 08/24/2020 2:20 PM CDT Pulse 89 08/24/2020 2:20 PM CDT Temperature 36.6 ??C (97.9 ??F) 08/24/2020 1:46 PM CD T Respiratory Rate 14 08/24/2020 2:20 PM CDT Oxygen Saturation 100% 08/24/2020 2:20 PM CDT Inhaled Oxygen Concentration - - Weight 136.1 kg (300 lb) 08/19/2020 1:39 PM CDT Height 180.3 cm (5' 11 ) 08/19/2020 1:39 PM CDT Body Mass Index 41.84 08/19/2020 1:39 PM CDT documented in this encounter Discharge Instructions * Attachments The following attachments cannot be sent through Care Everywhere. * Colonoscopy Discharge Instructions (Mauritanian) * Clostridioides difficile (Mauritanian) * Clostridioides difficile Discharge Instructions (Mauritanian) * General Anesthesia Discharge Instructions (Mauritanian) documented in this encounter Medications at Time of Discharge adalimumab (HUMIRA PEN) 40 MG/0.4ML pen-injector kitIndications:Ulcer ative pancolitis without complication (CMS/HCC HHS/HCC) Citrate free formula. Inject 40 mg (0.4 ml) pen Subcutaneously every other week. 2 each 4 0 09/24/19 21 azaTHIOprine 50 MG tabletIndications:Ul cerative pancolitis without complication (CMS/HCC HHS/HCC) Take 1 tablet (50 mg total) by mouth daily. 90 tablet 1 0 10/14/19 21 AZURETTE 0.15-0.02/0.01 MG (16/10) tabletIndications:Ro fani general medical examination at a health care facility Take 1 tablet by mouth once daily 84 tablet 1 12/29/19 21 cetirizine 10 MG tablet Take 10 mg by mouth daily. 08/16/19 23 dicyclomine 20 MG tabletIndications:Ch ronic diarrhea Take 1 tablet (20 mg total) by mouth every 6 (six) hours. 120 tablet 1 0 08/16/19 23 levETIRAcetam 750 MG tablet TAKE [...] 09/08/19 21 documented as of this encounter H&P Notes * Omar Johns MD - 08/24/2020 1:18 PM CDT GASTROENTEROLOGY H&P 08/24/2020 1:18 PM Reason for Consult: Ulcerative colitis on medication treatment. History of Present Illness: Paige Zavaleta is a 25-year-old ulcerative colitis on Humira and Imuran 50 mg daily. Patient Active Problem List Diagnosis ??? Seizure disorder (CMS/HCC) ??? Generalized abdominal pain ??? Irritable bowel syndrome with diarrhea ??? Fatigue, unspecified type ??? Ulcerative colitis (CMS/HCC) ??? Ulcerative pancolitis without complication (CMS/HCC) Past Medical History: Diagnosis Date ??? Seizures (CMS/HCC) ??? Ulcerative colitis (CMS/HCC) 06/28/2019 Dr. Omar Johns moderate to severe reed ulcerative colitis Past Surgical History: Procedure Laterality Date ??? COLONOSCOPY N/A 06/28/2019 COLONOSCOPY WITH BIOPSIES performed by Omar Johns MD at [facility] OR ulcerative pancolitis ??? TONSILLECTOMY No family history on file. Social History Socioeconomic History ??? Marital status: Single Spouse name: Not on file ??? Number of children: Not on file ??? Years of education: Not on file ??? Highest education level: Not on file Occupational History ??? 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 Financial resource strain: Not on file ??? Food insecurity Worry: Not on file Inability: Not on file ??? Transportation needs Medical: Not on file Non-medical: Not on file Tobacco Use ??? Smoking status: Never Smoker ??? Smokeless tobacco: Never Used Substance and Sexual Activity ??? Alcohol use: Yes Frequency: Monthly or less Drinks per session: 1 or 2 Comment: occasional ??? Drug use: No ??? Sexual activity: Not on file Lifestyle ??? Physical activity Days per week: Not on file Minutes per session: Not on file ??? Stress: Not on file Relationships ??? Social connections Talks on phone: Not on file Gets together: Not on file Attends hinduism service: Not on file Active member of club or organization: Not on file Attends meetings of clubs or organizations: Not on file Relationship status: Not on file ??? Intimate partner violence Fear of current or ex partner: Patient refused Emotionally abused: Patient refused Physically abused: Patient refused Forced sexual activity: Patient refused Other Topics Concern ??? Not on file Social History Narrative ??? Not on file No Known Allergies PHYSICAL EXAM: Filed Vitals: 08/19/20 1339 08/24/20 1156 BP: 129/89 Pulse: 97 Resp: 16 Temp: 97.5 ??F (36.4 ??C) TempSrc: Temporal SpO2: 100% Weight: 136.1 kg (300 lb) Height: 5' 11 (1.803 m) Wt Readings from Last 3 Encounters: 08/19/20 136.1 kg (300 lb) 07/23/20 135.2 kg (298 lb) 07/22/19 130.6 kg (288 lb) General: pleasant, no distress Lungs: clear to auscultation bilaterally Heart: regular rate and rhythm, normal s1-s2 Abdomen: soft, non-tender, non-distended, bowel sounds normal, no palpable masses Neuro: Alert, oriented, cooperative Labs: No results for input(s): WBC, HGB, MCV, PLT, INR in the last 168 hours. No results for input(s): NA, K, CL, CO2, BUN in the last 168 hours. Invalid input(s): CREATININE No results for input(s): AST, ALT, ALB in the last 168 hours. Invalid input(s): ALKPHOS, TBILI ? Assessment and Plan: Ulcerative colitis on medications. Plan, colonoscopy The procedural risks, benefits, alternatives were discussed fully with the patient, including the risks of complications of bleeding, infection, bowel injury or perforation, anesthesia related risks but not limited to the above. Post complication remedies could include hospitalization, antibiotics,surgery or even the remote possibility of . The patient verbalized understanding of the risks and wishes to proceed. Thank you for this consult. Please do not hesitate to contact us with further questions. OMAR JOHNS MD Voice recognition software utilized documented in this encounter Nursing Notes * Ambika Oconnor RN - 08/19/2020 1:41 PM CDTSummary: covid swab consent Discussed details of COVID testing with patient. Verbal consent given for testing. documented in this encounter OR Notes * Op Note - Omar Johns MD - 08/24/2020 1:53 PM CDT [facility] OpNote COLONOSCOPY WITH COLON BIOPSY VIA LARGE COLD FORCEP AND STOOL SAMPLE FOR CDIFF Procedure Note Paige Zavaleta 08/24/2020 1140 Procedure(s) (LRB): COLONOSCOPY WITH COLON BIOPSY VIA LARGE COLD FORCEP AND STOOL SAMPLE FOR CDIFF (N/A) Surgeon(s): Omar Johns MD Staff: GI Nurse: Grace Castro RN industrial cleaning technician: Leeann Luis Joshuaelizabeth Anesthesia: General Anesthesiologist: Aimee Costa MD BUDGET ENGINEER: Maria T Bowden CRNA Pre-Op Diagnosis: pancolitis, Ulcerative coliltis, frequent stools Post-Op Diagnosis: Limited colonoscopy with biopsy. Procedure Description: Informed consent was obtained earlier. Patient was brought to the OR and placed in supine lateral decubitus position and sedated under MAC anesthesia. PCF 190 scope was lubricated and inserted into the rectum and advanced to the distal transverse colon. There was diffuse colitis seen. Specimen was sent for C. difficile. Random biopsies were taken of the left colon. Findings: Severe active colitis. Possibility of C. difficile colitis as well as active UC. Plan: Check biopsies and stool for C. difficile. We will empirically start her on vancomycin. Complications: none Estimated Blood Loss: 1 mL Specimens: Order Name Source Comment Collection Info Order Time PATHOLOGY COLON Collected By: Omar Johns MD 08/24/2020 1:42 PM Release to patient System release CLOSTRIDIUM DIFFICILE STOOL RULE OUT CDIFF Collected By: Omar Johns MD 08/24/2020 1:42 PM Release to patient System release Voice recognition software utilized. OMAR JOHNS MD Date: 08/24/2020 Time: 1:54 PM Voice recognition software utilized. documented in this encounter Plan of Treatment Upcoming Encounters Date Type Department Care Team (Late st Contact Info) Description 08/21/2024 4:00 PM CDT Office Visit [facility] Family Medicine - [place] [phone] Charla Campos PA-C [address] [place] [address] documented as of this encounter Procedures Procedure Name Priority Date/Time Associated Diagnosis Comments HC EIA QL CLOS DIFF TOXIN AG Routine 08/24/2020 1:40 PM CDT COLONOSCOPY WITH BIOPSY 08/24/2020 1:33 PM CDT Ulcerative colitis (CMS/HCC HHS/HCC) Ulcerative pancolitis without complication (CMS/HCC HHS/HCC) PATHOLOGY Routine 08/24/2020 12:00 AM CDT documented in this encounter Results * CLOSTRIDIUM DIFFICILE (08/24/2020 1:40 PM CDT) Pathologist [facility] GD ANTIGEN NEGATIVE NEGATIVE 08/25/2020 7:34 AM CDT [facility] C DIFFICILE TOXIN A&B (STOOL) NEGATIVE NEGATIVE 08/25/2020 7:34 AM CDT [facility] COMMENT GDH NEGATIVE/TOXI N A & B NEGATIVE: NEGATIVE FOR TOXIGENIC C. DIFFICILE. 08/25/2020 7:34 AM CDT [facility] Stool specimen (specimen) STOOL SPECIMEN / Unknown 08/24/2020 1:40 PM CDT Comment:RULE OUT CDIFF Omar Johns MD BODY FLUIDS AND STOOLS ORDERABLE S Final Result [facility] [address] [facility] [place] [address], * Pathology (08/24/2020 12:00 AM CDT) Pathologist [facility] COPATH REPORT ?[facility] ? [address] [facility] [address] ? [place] ??[address] ? [phone] ? Department of Pathology ? Pathology Report ? SURGICAL FINAL REPORT Patient Name: PAIGE ZAVALETA ? : 1995 (Age: 25) ? Location: [facility] Gender: F ?Collected Date: 08/24/2020 Med Rec #: [id number] ?Date Received: 08/24/2020 Date Reported: 08/25/2020 Provider: OMAR JOHNS MD ?MONIK FONSECA MD Specimen(s) Colon Biopsy, left Final Pathologic Diagnosis COLON, LEFT, BIOPSY: ? MODERATE ACTIVE COLITIS ? NEGATIVE FOR DYSPLASIA Electronicall y Signed Out ? MUSHTAQ NORIEGA MD Pathologist ATH: Microscopic Description: The microscopic examination supports the above diagnosis. Clinical History Pancolitis, ulcerative colitis, frequent stools Gross Description The specimen is received in formalin (placed in formalin at 1339) labeled with the patient's name (Paige Zavaleta), date, and left colon biopsy. ??The specimen consists of five pieces of soft light villavicencio-red tissue measuring 0.2 up to 0.6 cm which are filtered and submitted in toto in one cassette. : Billing Fee Code(s): [address] [facility] Tissue specimen (specimen) COLON STRUCTURE / Unknown 08/24/2020 1:38 PM CDT us Omar Johns MD PATHOLOGY/CYTOLOGY ORDERABLES Fi nal Result [facility] [address] [place] [address], [place] [phone] documented in this encounter Visit Diagnoses Diagnosis Ulcerative pancolitis without complication (CMS/HCC HHS/HCC)- Primary Ulcerative pancolitis without complication (CMS/HCC HHS/HCC) Ulcerative colitis (CMS/HCC HHS/HCC) Ulcerative colitis, unspecified documented in this encounter Admitting Diagnoses Diagnosis Ulcerative colitis (CMS/HCC HHS/HCC) Ulcerative colitis, unspecified Ulcerative pancolitis without complication (CMS/HCC HHS/HCC) documented in this encounter Administered Medications documented in this encounter Active and Recently Administered Medications Times are shown in CDT. Continuous Medication Order 08/22/2020 08/23/2020 08/24/2020 lactated ringers infusion at 10 mL/hr, Intravenous, Continuous, Starting on Mon08/24/20 at 1430, Until Mon08/24/20 at 1638, Not to be given to patients with end stage renal disease or dialysis. Infuse at TKO rate, Pre-Op 1430 (Canceled Entry - Provider: Automatic Discharge Provider - Comment: Automatically canceled at discontinue of medication order) PRN Medication Order 08/22/2020 08/23/2020 08/24/2020 ondansetron (ZOFRAN) injection 4 mg 4 mg, Intravenous, Once as needed, Nausea, Vomiting, 1 dose, Starting on Mon08/24/20 at 1408, Until Mon08/24/20 at 1638, Administer slowly over 3-4 minutes. If more than one antiemetic is ordered, use in this order: ondansetron, diphenhydramine, metoclopramide, haloperidol, promethazine. If nausea / vomiting still not controlled, move to next ordered medication., PACU documented in this encounter
--- OUTSIDE RECORDS SUMMARY | 2024-06-08 07:53 | XMS_ITS | Encounter Summary ---
Author Organization [facility] Address [address] [place] [address]. [place] [address] [place] [address] Care Team Providers Care Assembly Detailer Name Role Phone Unavailable Primary Care Provider Unavailabl e Reason for Visit * Reason Onset Date Comments Question 09/03/2020 Encounter Details Date Type Department Care Team (Late st Contact Info) Description 09/03/2020 Telephone [facility] Multispecialty Care - [facility] [address] [facility], [address] [place] [address] Seble Ratliff NP [address] [facility]. [address] [place] [address] Question Social History Tobacco Use Types Packs/Day [...] of this encounter Progress Notes * Seble Ratliff NP - 09/04/2020 8:58 AM CDTAddended by: SEBLE RATLIFF on: 09/04/2020 08:58 AM Modules accepted: Orders * Seble Ratliff NP - 09/04/2020 8:49 AM CDT Pt notes she has shooting pain into her back. She spoke middle of stomach to lower back a couple ofdays ago. She spoke with her mom and was wondering whether there could be some pancreas problems. Idid review her CT scan from 2019 with no pancreatic concerns noted. According to her symptoms, sounds like it is more GERD or possible biliary related. The pain was short-lived but intense. Patient notes she does have chronic low back pain but this was a radiating pain and was definitely different.Patient is agreeable to try something to reduce acids we mutually agreed upon Pepcid 20 mg twice daily and will have patient give me a call if things worsen. I did not want her to continue taking herHumira as we are still working on approval for infusions at this time. No further questions. * Caridad Azul - 09/03/2020 3:38 PM CDT Paige called today and wanted to ask if her problem now is related to her pancreatis and how can she be tested. If you could please give her a call to discuss. documented in this encounter Plan of Treatment Upcoming Encounters Date Type Department Care Team (Late st Contact Info) Description 08/21/2024 4:00 PM CDT Office Visit [facility] Family Medicine - [place] [phone] Charla Campos PA-C [address] [place] [phone] documented as of this encounter Visit Diagnoses Diagnosis Epigastric pain- Primary Abdominal pain, epigastric documented in this encounter
--- OUTSIDE RECORDS SUMMARY | 2024-06-08 07:53 | XMS_ITS | Encounter Summary ---
Author Organization [facility] Address [address] [place] [address]. [place] [address] [place] [address] Care Team Providers Care Continuous Churn Buttermaker Name Role Phone Unavailable Primary Care Provider Unavailabl e Reason for Visit * Reason Onset Date Comments Information 08/27/2020 Encounter Details Date Type Department Care Team (Late st Contact Info) Description 08/27/2020 Telephone [facility] Multispecialty Care - [facility] [address] [facility], [address] [place] [address] Seble Bliss NP 3 [facility]. [address] [place], [place] [address] Information Social History Tobacco Use Types Packs/Day [...] encounter Progress Notes * Xochitl Escobedo - 09/03/2020 10:11 AM CDT Paperwork received we will get it faxed back to [facility]. * Nila Hilliard - 09/02/2020 3:24 PM CDT Seble called from referrals and stated that she was contacted by [facility] regarding patients Entyvio infusion. She stated that [facility] would be faxing over paperwork to this office today that needs to be filled out [facility]. Please be on the lookout for the paperwork * Xochitl Escobedo - 08/31/2020 3:27 PM CDT Spoke with patient question answered. She want to make sure that auth is gotten through [facility] before her Entyvio infusion. Spoke with Carly in [facility] infusion department. She said they checked with patient's insurance no auth is required for Entyvio [facility] do not need to be contacted medicine will be coming from their pharmacy. Patient informed. * Priscilla Marshall - 08/31/2020 2:14 PM CDT Patient calling about the pre auth for her infusion that her and Seble have been talking about. Call patient to discuss before sending any information. Call back number [phone]. * Seble Bliss NP - 08/27/2020 4:22 PM CDT Called and discussed with her the plan to continue Humira until the Enytvio can be initiated. She note the infusion center called set her up her infusion. She is asking about cost and coverage. I encouraged her to talk with insurance company on this. She does have questions about the side effects and function of medication. I encouraged he to set up appt to discuss. She notes will think about this. * Xochitl Escobedo - 08/27/2020 3:58 PM CDT Please advise? * Kaitlynn Healy - 08/27/2020 8:44 AM CDT Patient was called by Dr. Johns yesterday regarding her results. Patient did not quite understand theresults or understand what he was telling her about what her next steps would be. She is wanting toknow if Bryson Bliss could call her to reiterate what he had said... Please follow up with patient. documented in this encounter Plan of Treatment Upcoming Encounters Date Type Department Care Team (Late st Contact Info) Description 08/21/2024 4:00 PM CDT Office Visit [facility] Family Medicine - [place] [address] [place] [phone] Charla Campos PA-C [address] [place] [phone] documented as of this encounter Visit Diagnoses Not on filedocumented in this encounter
--- OUTSIDE RECORDS SUMMARY | 2024-06-08 07:53 | XMS_ITS | Encounter Summary ---
Author Organization [facility] Address [address] [place] [address]. [place] [address] [place] [address] Care Team Providers Care Director Of Operations Name Role Phone Unavailable Primary Care Provider Unavailabl e Reason for Visit * Auth/Cert Specialty Diagnoses / Procedures Referred By Yodit kenney Referred To Contact Diagnoses Ulcerative colitis ([facility] HHS/HCC) Ulcerative pancolitis without complication ([facility] HHS/[facility]) pancolitis, Ulcerative coliltis, frequent stools Procedures COLONOSCOPY Referral ID Status Reason Start Date Expiration Date Visits Re quested Visits Authorized [id number] 1 1 Encounter Details Date Type Department Care Team (Late st Contact Info) Description 08/24/2020 11:40 AM CDT - 08/24/2020 12:00 PM CDT Surgery [facility] [place] [address] Omar Johns MD [address] [address] COLONOSCOPY WITH COLON BIOPSY VIA LARGE COLD FORCEP AND STOOL SAMPLE FOR CDIFF Surgery Details Date/Time Status Location OR Service Patient Class Case Class Case Type Trauma Case? 08/24/2020 11:40 AM Posted [facility] Endo 1 Gastroenterology Short Stay/Outpa tient Surgery No Panel 1 Procedure LRB Anes Op Region Wound Class Comments COLONOSCOPY WITH COLON BIOPS Y VIA LARGE COLD FORCEP AND STOOL SAMPLE FOR CDIFF N/A General Clean Contaminated COLITIS Surgeon Surgeon Role Service Panel Omar Johns MD Primary Gastroenterology 1 documented in this encounter Social History Tobacco Use Types Packs/Day Years [...] Sign Reading Time Taken Comments Blood Pressure 129/89 08/24/2020 11:56 AM CDT Pulse 97 08/24/2020 11:56 AM CDT Temperature 36.4 ??C (97.5 ??F) 08/24/2020 11:56 AM C DT Respiratory Rate 16 08/24/2020 11:56 AM CDT Oxygen Saturation 100% 08/24/2020 11:56 AM CDT Inhaled Oxygen Concentration - - Weight 136.1 kg (300 lb) 08/19/2020 1:39 PM CDT Height 180.3 cm (5' 11 ) 08/19/2020 1:39 PM CDT Body Mass Index 41.84 08/19/2020 1:39 PM CDT documented in this encounter Discharge Instructions * Attachments The following attachments cannot be sent through Care Everywhere. * Colonoscopy Discharge Instructions (Stateless) * Clostridioides difficile (Stateless) * Clostridioides difficile Discharge Instructions (Stateless) * General Anesthesia Discharge Instructions (Stateless) documented in this encounter Medications at Time [...] 0 10/14/19 21 AZURETTE 0.15-0.02/0.01 MG (16/10) tabletIndications:Oksana mohr general medical examination at a health care [...] BIOPSIES performed by Omar Johns MD at [facility] [place] ulcerative pancolitis ??? TONSILLECTOMY No family [...] file Gets together: Not on file Attends latter-day service: Not on file Active member of [...] No Known Allergies PHYSICAL EXAM: Filed Vitals: 03/24/21 1339 08/24/20 1156 BP: 129/89 Pulse: 97 [...] Johns MD - 08/24/2020 1:53 PM CDT [facility] OpNote COLONOSCOPY WITH COLON BIOPSY VIA LARGE COLD FORCEP AND STOOL SAMPLE FOR CDIFF Procedure Note Paige Zavaleta 08/24/2020 1140 Procedure(s) (LRB): COLONOSCOPY WITH COLON BIOPSY VIA LARGE COLD FORCEP AND STOOL SAMPLE FOR CDIFF (N/A) Surgeon(s): Omar Johns MD Staff: GI Nurse: Grace Castro RN knuckle strap sewer: Leeann Turk Anesthesia: General Anesthesiologist: Aimee Costa MD DINING ROOM BUSSER: Maria T Bowden CRNA Pre-Op Diagnosis: pancolitis, [...] [facility] Family [facility] - [place] [address] [place] [address] Charla Campos PA-C [address] [place] [address] documented as of this encounter Procedures Procedure Name Priority Date/Time Associated Diagnosis Comments HC EIA QL CLOS DIFF TOXIN AG Routine 08/24/2020 1:40 PM CDT COLONOSCOPY WITH BIOPSY 08/24/2020 1:33 PM CDT Ulcerative colitis ([facility] HHS/HCC) Ulcerative pancolitis without complication ([facility] HHS/[facility]) PATHOLOGY Routine 08/24/2020 12:00 AM CDT documented in this encounter Results * CLOSTRIDIUM DIFFICILE (08/24/2020 1:40 PM CDT) [facility] ANTIGEN NEGATIVE NEGATIVE 08/25/2020 7:34 AM CDT [facility] C DIFFICILE TOXIN A&B (STOOL) NEGATIVE NEGATIVE 08/25/2020 7:34 AM CDT [facility] COMMENT GDH NEGATIVE/TOXI N A & B NEGATIVE: NEGATIVE FOR TOXIGENIC C. DIFFICILE. 08/25/2020 7:34 AM CDT [facility] Stool specimen (specimen) STOOL SPECIMEN / Unknown 08/24/2020 1:40 PM CDT Comment:RULE OUT CDIFF Omar Johns MD BODY FLUIDS AND STOOLS ORDERABLE S Final Result [facility] [address] [place] [address], * Pathology (08/24/2020 12:00 AM CDT) COPATH REPORT ?[facility] ? [address] ? [place], [place] ??[address] ? [id number] ? Department of Pathology ? Pathology Report ? SURGICAL FINAL REPORT Patient Name: PAIGE ZAVALETA ? : 1995 (Age: 25) ? Location: [facility] Gender: F ?Collected Date: 08/24/2020 Med Rec #: [id number] ?Date Received: 08/24/2020 Date Reported: 08/25/2020 Provider: OMAR JOHNS MD ?MONIK FONSECA MD Specimen(s) Colon Biopsy, left Final Pathologic Diagnosis COLON, LEFT, BIOPSY: ? MODERATE ACTIVE COLITIS ? NEGATIVE FOR DYSPLASIA Electronicall y Signed Out ? MUSHTAQ NORIEGA MD Pathologist ATH:lc Microscopic Description: The microscopic examination supports the [...] in one cassette. : Billing Fee Code(s): 17353 [facility] Tissue specimen (specimen) COLON STRUCTURE / Unknown 08/24/2020 1:38 PM CDT us Omar Johns MD PATHOLOGY/CYTOLOGY ORDERABLES Fi nal Result [facility] [address] [place] [address], documented in this encounter Visit Diagnoses Diagnosis Ulcerative pancolitis without complication (CMS/HCC HHS/HCC)- Primary Ulcerative pancolitis without complication (CMS/HCC HHS/HCC) Ulcerative colitis (CMS/HCC HHS/HCC) Ulcerative colitis, unspecified Ulcerative colitis (CMS/HCC HHS/HCC) Ulcerative colitis, unspecified Ulcerative pancolitis without complication (CMS/HCC HHS/HCC) documented in this encounter Admitting Diagnoses Diagnosis [...]
--- OUTSIDE RECORDS SUMMARY | 2024-06-08 07:53 | XMS_ITS | Encounter Summary ---
Author Organization [facility] Address [address] [place] [address]. [place] [address] [place] [address] Care Team Providers Care Environmental Science Instructor Name Role Phone Unavailable Primary Care Provider Unavailabl e Reason for Visit * Auth/Cert Specialty Diagnoses / Procedures Referred By Yodit kenney Referred To Contact Diagnoses Ulcerative colitis ([facility] HHS/HCC) Ulcerative pancolitis without complication ([facility] HHS/[facility]) pancolitis, Ulcerative coliltis, frequent stools Procedures COLONOSCOPY Referral ID Status Reason Start Date Expiration Date Visits Re quested Visits Authorized [id number] 1 1 Encounter Details Date Type Department Care Team (Late st Contact Info) Description 08/24/2020 1:31 PM CDT Anesthesia Event [facility] [place] [address] Aimee Costa MD Anesthesia Record Procedure Summary Procedure Name Responsible Anesthesiologist Anesthesia Start Time Anesthesia Stop Time COLONOSCOPY WITH COLON BIOPSY VIA LARGE COLD FORCEP AND STOOL SAMPLE FOR CDIFF Aimee Costa MD 08/24/20 1331 08/24/20 1345 Events Date Time Event Comment 08/24/2020 1303 1303 AN Anesthesia Prepped 1319 AN TRAIN RESERVATION CLERK Prepped 1325 An Start Data 1325 Nasal Cannula Applied 1331 An Start Patient ID and consent checked and patient reassessed. 1331 Anesthesia Ready 1332 An Induction 1340 An Emergence 1341 Nasal Cannula Removed 1344 an stop data 1345 Post Anesthetic Care Handoff I completed my handoff to the receiving nurse during which we: 1. Identified the patient 2. Identified the responsible provider 3. Reviewed the pertinent medical history 4. Discussed the surgical course 5. Reviewed intra-op anesthesia management and issues during anesthesia 6. Set expectations for post-procedure period 7. Allowed opportunity for questions and acknowledgement of understanding. 1345 An Stop Meds Name Total propofol (DIPRIVAN) 200 mg/20 mL injecti on 250 mg lidocaine (PF) (XYLOCAINE) 2% injection 50 mg lactated ringers infusion 200 mL * Agents Name O2 N2O Air Ancillary O2 * Blood No blood administrations on file. Lines, Drains, and Airways Type Details Placement Removal Peripheral IV Placement Date: 07/28 02/16; Placement Time: 1222; Size: 20 G; Orientation: Right; Site Prep: Alcohol; Insertion attempts: 1; Patient Tolerance: Tolerated well; Removal Date: 08/24/20; Removal Time: 143; Removal Reason: Patient Discharged 08/24/20 1222 by Briana Falcon RN 08/24/20 1432 by Francisca Her RN documented in this encounter Social History Tobacco [...] AM CDT documented as of this encounter OR Notes * Anesthesia Postprocedure Evaluation - Aimee Costa MD - 08/24/2020 4:54 PM CDT Anesthesia Post-op Note Paige Tova Brantley Procedure(s): COLONOSCOPY WITH COLON BIOPSY VIA LARGE COLD FORCEP AND STOOL SAMPLE FOR CDIFF (N/A ) Anesthesia type: general Vitals: 08/24/20 1420 BP: 120/82 Vitals: 08/24/20 1420 Pulse: 89 Vitals: 08/24/20 1420 Resp: 14 Vitals: 08/24/20 1346 Temp: 36.6 ??C Vitals: 08/24/20 1420 SpO2: 100% Patient Location: Phase II/Outpatient Level of Consciousness: awake Pain Management: adequate analgesia Airway Patency: patent Respiratory Status: acceptable Cardiovascular Status: acceptable Post-Op Nausea: none Postoperative Hydration: euvolemic Complications: no anesthesia complication Comments: Pt evaluated prior to discharge from perioperative care * Anesthesia Postprocedure Evaluation - Aimee Costa MD - 08/24/2020 4:54 PM CDT Anesthesia Post-op Note Paige Bellaadis Zavaleta Procedure(s): COLONOSCOPY WITH COLON BIOPSY VIA LARGE COLD FORCEP AND STOOL SAMPLE FOR CDIFF (N/A ) Anesthesia type: general Vitals: 08/24/20 1420 BP: 120/82 Vitals: 08/24/20 1420 Pulse: 89 Vitals: 08/24/20 1420 Resp: 14 Vitals: 08/24/20 1346 Temp: 36.6 ??C Vitals: 08/24/20 1420 SpO2: 100% Patient Location: Other Level of Consciousness: awake Pain Management: adequate analgesia Airway Patency: patent Respiratory Status: acceptable Cardiovascular Status: acceptable Post-Op Nausea: none Postoperative Hydration: euvolemic Complications: no anesthesia complication Comments: Pt evaluated prior to discharge from perioperative care * Anesthesia Preprocedure Evaluation - Aimee Costa MD - 08/24/2020 5:05 AM CDT Anesthesia ROS/MED History Reviewed: Patient summary , Nursing notes , Family history anesthesia, Anesthesia history , Medications , Labs Pre-Anesthetic State: alert, awake and responds appropriately no history of anesthetic complications Pulmonary neg pulmonary ROS Cardiovascular neg cardio ROS Exercise tolerance:good Neuro/Psych (+) seizures (last one was 7 years ago; has been stable on current medication regimen) GI/Hepatic/Renal (-) GERD Comments: Ulcerative colitis Endo/Other (+) obese GENERAL COMMENTS 25 yo F with pmh of ulcerative colitis, seizures, obesity scheduled for colonoscopy. Physical Evaluation Airway Mallampati: I TM Distance: >3 FB Neck ROM: normal Dental No notable dental history Pulmonary Pulmonary exam normal Cardiovascular Cardiovascular exam normal Other findings: Blood pressure 129/89, pulse 97, temperature 36.4 ??C, temperature source Temporal,resp. rate 16, height 5' 11 (1.803 m), weight 136.1 kg (300 lb), SpO2 100 %. No results for input(s): WBC, RBC, HGB, HCT, PLT, NA, K, CL, CO2, AGAP, BUN, CR, BUNCREATININ, GFRNON, GFR, GLU, CA in the last 72 hours. Anesthesia Plan ASA 2 Intravenous Induction Anesthesia type: general Discussed potential risks of General Anesthesia including but not limited to corneal abrasion, visual impairment or visual loss, mouth injury, dental damage, sore throat, hoarseness, esophageal injury, awareness under anesthesia, nerve injury due to positioning, aspiration, pneumonia, stroke, cardiac event, adverse drug reactions and . TIVA Informed Consent Anesthetic plan and risks discussed with patient of whom consent was obtained. . documented in this encounter Plan of Treatment Upcoming Encounters Date Type Department Care Team (Late st Contact Info) Description 08/21/2024 4:00 PM CDT Office Visit [facility] Family Medicine - [place] [address] [place] [phone] Charla Campos PA-C [address] [place] [phone] documented as of this encounter Visit Diagnoses Not on filedocumented in this encounter Administered Medications Inactive Administered Medications - up to 3 most recent administrations Medication Order MAR Action Action Date Dose Rate Site lactated ringers infusion Continuous PRN, Starting on Mon08/24/20 at 1325, Until Mon08/24/20 at 1345, Anesthesia Intra-Op New Bag 08/24/2020 1:25 PM CDT lidocaine (PF) (XYLOCAINE) 2 % injection PRN, Starting on Mon08/24/20 at 1332, Until Mon08/24/20 at 1345, Anesthesia Intra-Op Given 08/24/2020 1:32 PM CDT 50 mg propofol (DIPRIVAN) IV bolus PRN, Starting on Mon08/24/20 at 1332, Until Mon08/24/20 at 1345, Anesthesia Intra-Op Given 08/24/2020 1:37 PM CDT 50 mg Given 08/24/2020 1:35 PM CDT 50 mg Given 08/24/2020 1:32 PM CDT 150 mg documented in this encounter
--- OUTSIDE RECORDS SUMMARY | 2024-06-08 07:53 | XMS_ITS | Encounter Summary ---
Author Organization [facility] Address [facility] [place] [address] [place] [address] Care Team Providers Care Planer Operator Name Role Phone Unavailable Primary Care Provider Unavailabl e Encounter Details Date Type Department Care Team (Late st Contact Info) Description 08/26/[address] [facility] Multispecialty Care - [address], [address] [place] [address] Omar Johns MD 3 [facility] [address] [place] [address] Social History Tobacco Use Types Packs/Day Years [...] [facility] Family [facility] - [place] [address] Charla Campos PAZaheerC [address] [place] [address] documented as of this encounter Visit Diagnoses Not on filedocumented in this encounter
--- OUTSIDE RECORDS SUMMARY | 2024-06-08 07:53 | XMS_ITS | Encounter Summary ---
Author Organization [facility] Address [address] [place] [address]. [place] [address] [place] [address] Care Team Providers Care Community Education Coordinator Name Role Phone Unavailable Primary Care Provider Unavailabl e Reason for Visit * Reason Onset Date Comments Medication 09/25/2020 Encounter Details Date Type Department Care Team (Late st Contact Info) Description 09/25/2020 Telephone [facility] Multispecialty Care - [facility] [address] [facility], [address] [place] [address] Seble Bliss NP 3 [facility]. [address] [place] [address] Medication Social History Tobacco Use Types Packs/Day [...] encounter Progress Notes * Xochitl Escobedo - 09/28/2020 2:40 PM CDT Spoke with Oziel at [facility] patient [facility] has been approved. Approval letter will be faxed over.Patient was informed. * Kaitlynn Healy - 09/28/2020 1:30 PM CDT Patient is wanting to know the status of her prescription from [facility]. Please follow up with patient as soon as possible. * Juan Jose Mayes - 09/25/2020 3:06 PM CDT [facility] called in to verify how to get the pt medication to them... Please fu @ [phone] Order #[id number] documented in this encounter Plan of Treatment Upcoming Encounters Date Type Department Care Team (Late st Contact Info) Description 08/21/2024 4:00 PM CDT Office Visit [facility] Family Medicine - [place] [address] [place] [phone] Charla Campos PA-C [address] [facility] [place] [address] documented as of this encounter Visit Diagnoses Not on filedocumented in this encounter
--- OUTSIDE RECORDS SUMMARY | 2024-06-08 07:53 | XMS_ITS | Encounter Summary ---
Author Organization [facility] Address [address] [place] [address]. [place] [address] [place] [address] Care Team Providers Care Soc Analyst Name Role Phone Unavailable Primary Care Provider Unavailabl e Reason for Visit * Reason Onset Date Comments Medication Problem 08/06/2020 Encounter Details Date Type Department Care Team (Late st Contact Info) Description 08/06/2020 Telephone [facility] Multispecialty Care - [facility] 3 [facility], [address] [place] [address] Seble Ratliff NP 3 [facility]. [address] [place] [address] Medication Problem Social History Tobacco Use Types Packs/Day Years Used Date Smoking Tobacco: Never Smokeless Tobacco: Never Alcohol Use Standard Drinks/Week Comments Yes 0 (1 standard drink = 0.6 oz pur e alcohol) occasional AUDIT-C Answer Date Recorded Frequency of Alcohol [...] COVID-19? No / Unsure 07/23/2020 2:43 PM DOMESTIC CLEANER documented as of this encounter Progress Notes * Seble Ratliff NP - 08/07/2020 10:04 AM CSTAddended by: SEBLE RATLIFF on: 08/07/2020 10:04 AM Modules accepted: Orders STIC CLEANER * Xochitl Escobedo - 08/07/2020 10:01 AM CSTAddended by: XOCHITL ESCOBEDO on: 08/07/2020 10:01 AM Modules accepted: Orders STIC CLEANER * Xochitl Escobedo - 08/07/2020 9:57 AM CST Matt is pending for approval to the pharmacy. STIC CLEANER * Leonardo Barboza - 08/06/2020 3:59 PM CST Patient called and stated that the prescription that was sent over was too expensive and she would like it switched to the larger quantity(gallon) because it is more affordable. Please give PT a callback to discuss STIC CLEANER documented in this encounter Plan of Treatment Upcoming Encounters Date Type Department Care Team (Late st Contact Info) Description 08/21/2024 4:00 PM CDT Office Visit [facility] Family Medicine - [place] [address] [place] [phone] Charla Campos PA-C [address] [place] [phone] documented as of this encounter Visit Diagnoses Diagnosis Ulcerative pancolitis with rectal bleeding ([facility]/HCC [facility]/HCC)- Primary Bloody diarrhea Diarrhea Chronic diarrhea Diarrhea Generalized abdominal pain Abdominal pain, generalized documented in this encounter
--- OUTSIDE RECORDS SUMMARY | 2024-06-08 07:53 | XMS_ITS | Encounter Summary ---
Author Organization [facility] Address [address] [place] [address]. [place] [address] [place] [address] Care Team Providers Care District Sales Manager Name Role Phone Charla Campos PA-C Primary Care Provider [phone] Encounter Details Date Type Department Care Team (Late st Contact Info) Description 08/21/2020 Prep for Procedure [facility] [place] [phone] Omar Johns MD 3 [facility] [address] [place] [address] Social History Tobacco Use Types Packs/Day Years [...] [facility] - [address] [phone] Charla Campos PA-C [address] [place] [address] documented as of this encounter Results * PRE-SURGICAL/PRE-PROCEDURE CORONAVIRUS (COVID 19) (08/21/2020 11:17 AM CDT) CORONAVIRUS SARS COV 2 PCR (RESP) NOT DETECTED NOT DETECTED 08/22/2020 10:36 AM CDT [facility] Comment: A Not Detected (negative) test [...] providers and patients using the following websites: https://www.Enject.com/home/Covid-19/HCP/QuestIVD/fact- sheet.html https://www.Enject.[facility]/home/Covid-19/Patients/ Quest[employer]/fact-sheet.html This test has been authorized by the FDA under an Emergency Use Authorization (EUA) for use by authorized laboratories. Due to the current public health emergency, [facility] is receiving a high volume of samples [...] about COVID-19 can be found at the [facility] website: www.MySQL.[facility]/Covid19. Test performed at [facility] [address] ??[phone] Director: DENA ALMAGUER DO,MPH FIRST TEST YES 08/21/2020 11:24 AM CDT [facility] EMPLOYED IN HEALTHCARE NO 08/21/2020 11:24 AM CDT [facility] SYMPTOMATIC DEFINED BY CDC NO 08/21/2020 11:24 AM CDT [facility] DATE OF SYMPTOM ONSET NO 08/21/2020 2:22 PM CDT [facility] HOSPITALIZATION STATUS NO 08/21/2020 11:24 AM CDT [facility] PATIENT IN ICU NO 08/21/2020 11:24 AM CDT [facility] RESIDENT OF [facility] NO 08/21/2020 11:24 AM CDT [facility] NOT 08/21/2020 11:24 AM CDT [facility] PATIENT'S RACE WHITE OR 08/21/2020 11:24 AM CDT [facility] ETHNICITY NONHISPANIC 08/21/2020 11:24 AM CDT [facility] SOURCE (QST) NASOPHARYNGEAL SWAB 08/21/2020 11:24 AM CDT [facility] NASOPHARYNGEAL SWAB / Unknown 08/21/2020 11:17 AM CDT us Omar Johns MD MICROBIOLOGY - GENERAL ORDERABLE S Final Result [facility] [address] [place] [address], [facility] [address] [place] [address] documented in this encounter Visit Diagnoses Diagnosis Pancolitis ([facility])- Primary [place] ulcerative (chronic) colitis documented in this encounter Additional Health Concerns Infection Onset Date Last Indicated Resolved Time COVID-19 Rule Out 08/21/2020 08/21/2020 08/22/2020 10:36 AM CDT documented as of this encounter Care Teams District Sales Manager Relationship Specialty Start Date End Date Charla Campos PA-C [address] [place] [phone] PCP - General PHYSICIAN CONTACT AGENT 08/22/23 documented as of this encounter
--- OUTSIDE RECORDS SUMMARY | 2024-06-08 07:53 | XMS_ITS | Encounter Summary ---
Author Organization [facility] Address [address] [place] [address]. [place], [place] [address] [place] [address] Care Team Providers Care Evaporator Supervisor Name Role Phone Unavailable Primary Care Provider Unavailabl e Encounter Details Date Type Department Care Team (Latest Contact Info) Description 08/24/2020 Travel Social History Tobacco Use Types Packs/Day [...] 4:00 PM CDT Office Visit [facility] Family Medicine - [place] [phone] Charla Campos PA-C [address] [place] [address] documented as of this encounter Visit Diagnoses Not on filedocumented in this encounter
--- OUTSIDE RECORDS SUMMARY | 2024-06-08 07:53 | XMS_ITS | Encounter Summary ---
Author Organization [facility] Address [address] [place] [address]. [place] [address] [place] [address] Care Team Providers Care Phone Representative Name Role Phone Unavailable Primary Care Provider Unavailabl e Reason for Visit * Reason Onset Date Comments Prior Authorization 09/28/2020 Encounter Details Date Type Department Care Team (Late st Contact Info) Description 09/28/2020 Telephone [facility] Multispecialty Care - [address], [address] [place] [address] Omar Johns MD 3 [facility] [address] [place] [address] Prior Authorization Social History Tobacco Use Types [...] encounter Progress Notes * Xochitl Escobedo - 09/30/2020 9:49 AM CDT Spoke with patient she said [facility] did contact her, but Inflectra is going to cost her $700. They're going to send her some patient assistance forms to be completed by the provider. She was given the fax number for the forms to be faxed to. * Xochitl Escobedo - 09/29/2020 3:59 PM CDT Spoke with patient I will be following up with [facility] on the status of her Inflectra. * Caridad Azul - 09/29/2020 3:21 PM CDT Paige called today about her prescription. Her pharmacy has not contacted her about it being ready. Please call her to discuss. * Leonardo Barboza - 09/28/2020 2:18 PM CDT [facility] Prior Auth Dept called and stated that they needed to speak with a nurse regarding the Pt prescription and prior auth. Transferred call to [facility]. documented in this encounter Plan of Treatment Upcoming Encounters Date Type Department Care Team (Late st Contact Info) Description 08/21/2024 4:00 PM CDT Office Visit [facility] Family Medicine - [place] [address] [place] [id number] Charla Campos PA-C [address] [place] [phone] documented as of this encounter Visit Diagnoses Not on filedocumented in this encounter
--- OUTSIDE RECORDS SUMMARY | 2024-06-08 07:53 | XMS_ITS | Encounter Summary ---
Author Organization [facility] Address [address] [place] [address]. [place] [address] [place] [address] Care Team Providers Care Customer Service Rep Name Role Phone Unavailable Primary Care Provider Unavailabl e Reason for Visit * Reason Onset Date Comments Medication Request 09/23/2020 Encounter Details Date Type Department Care Team (Late st Contact Info) Description 09/23/2020 Telephone [facility] Multispecialty Care - [address], [address] [place] [address] Omar Johns MD 3 [facility] [address] [place] [address] Medication Request Social History Tobacco Use Types Packs/Day [...] Progress Notes * Seble Bliss NP - 09/23/2020 1:48 PM CDT Refilled prescription for Humira until Inflectra infusion can be approved through [facility]. I did place a new order in for Inflectra at 5 mg/kg per dose IV x1 on week 0, 2, 6 then every 8 weeks for the 12 months. This was submitted to [facility] along with a refill for Humira. Patient understands that she is to discontinue Humira once Inflectra is initiated in the infusion center. Please inform patient that all orders have been placed and prior authorization request was sent via fax to [facility]. * Xochitl Escobedo - 09/23/2020 1:10 PM CDT Spoke with patient she said [facility] states she is out of the refill on Humira and the still have not received a prescription are auth request for the Inflectra. Spoke with Darion at [facility] patient isneeding refills on the Humira and they need a prescription for the Inflectra. documented in this encounter Plan of Treatment Upcoming Encounters Date Type Department Care Team (Late st Contact Info) Description 08/21/2024 4:00 PM CDT Office Visit [facility] Family Medicine - [place] [address] [place] [phone] Charla Campos PA-C [address] [place] [phone] documented as of this encounter Visit Diagnoses Diagnosis Ulcerative pancolitis without complication (CMS/HCC HHS/HCC) documented in this encounter
--- OUTSIDE RECORDS SUMMARY | 2024-06-08 07:54 | XMS_ITS | Encounter Summary ---
Author Organization [facility] Address [address] [place] [address]. [place] [address] [place] [address] Care Team Providers Care Private Eye Name Role Phone Unavailable Primary Care Provider Unavailabl e Reason for Visit * Reason Comments Ulcerative Colitis ulcerative pancoliti s, pt feels like meds aren't helping * Consultation/Treatment (Routine) - Closed Specialty Diagnoses / Procedures Referred By Contact Referred To Contact NURSE PRACTITIONER / GASTROENTEROLOGY Diagnoses discuss colitis Procedures FOLLOW UP Karson Payne MD [address] [facility] [address] [place] [address] Phone: tel: fax: Seble Bliss NP [address] [facility] [place] [address] Phone: tel:[phone] fax:[phone] Referral ID Status Reason Start Date Expiration Date Visits Re quested Visits Authorized [id number] Closed 07/23/2020 08/20/2021 100 100 Encounter Details Date Type Department Care Team (Latest Contact Info) Description 07/23/2020 3:00 PM COOK DINNER Office Visit [facility] Multispecialty Care - [facility] [address] [facility] [place] [phone] Seble Bliss NP [address] [facility] [place] [address] Ulcerative Colitis (ulcerative pancolitis, pt feels like meds aren't helping) Social History Tobacco Use Types Packs/Day Years [...] COVID-19? No / Unsure 07/23/2020 2:43 PM COOK DINNER documented as of this encounter Last Filed Vital Signs Vital Sign Reading Time Taken Comments Blood Pressure 126/84 07/23/2020 3:56 PM COOK DINNER Pulse 104 07/23/2020 2:58 PM COOK DINNER Temperature 36.3 ??C (97.4 ??F) 07/23/2020 2:58 PM CS T Respiratory Rate 20 07/23/2020 2:58 PM COOK DINNER Oxygen Saturation 96% 07/23/2020 2:58 PM COOK DINNER Inhaled Oxygen Concentration - - Weight 135.2 kg (298 lb) 07/23/2020 2:58 PM COOK DINNER Height 180.3 cm (5' 11 ) 07/23/2020 2:58 PM COOK DINNER Body Mass Index 41.56 07/23/2020 2:58 PM COOK DINNER documented in this encounter Progress Notes * Seble Bliss NP - 07/23/2020 3:00 PM CST Images from the original note were not included. Gastroenterology Established Visit Reason for Visit: Ulcerative Colitis (ulcerative pancolitis, pt feels like meds aren't helping) History of Present Illness: HPI Paige Zavaleta??is a 25-year-old??female??being seen in clinic for referral by??Karson Payne. Ptnotes she was doing well till 2 mos ago. Pt now has fecal urgency again so eats late in her day as not to disrupt her work day. Pt notes her grandmother about 2 months and seemed to trigger her emotional level. Dicyclomine PRN and has been using it maybe once a day. After she eats has 2 bms that are loose and get more watery like as the day goes on. Notes blood if bms are liquid then some faint blood but not large amounts. Pt was to repeat colonoscopy about 6 months ago however due to Covid patient did not feel comfortable doing this. Patient ishowever agreeable to doing a colonoscopy at this time. Patient is also overdue for lab work so we will proceed with this as well after today's visit. Slight nausea and stomach noises. Patient notes she did get her hepatitis A and B immunizations but thinks she only got 1 Hep B vaccine. Notes she does not have a PCP that she likes and is looking for a new one. Encouraged her to establish care with a new PCP and discuss how to complete her hepatitis B vaccinations. She is currently on Humira and Imuran 50 mg daily. ?? No nocturnal defecations. Patient denies any mucus in the stool. ?? Rare generalized abdominal discomfort and cramping if stools are more loose. No nausea, vomiting, dysphagia, ??heart burn or acid reflux. Appropriate appetite. ?? No constipation or melena. No weight loss. Patient notes she does work [employer] so no longer in public much. ?? Prior abdominal surgeries: none. No EGDs in the past. 06/28/[address] Omar Johns No prior h/o hepatitis,+??prior tattoos, no prior blood transfusions, no drug use, +??ETOH use 5 drinks/week, and no smoking. No family history of GI/Colon Cancer.?No history of IBD or IBS. Pat grandma had GI problems. NSAID/Blood thinner use:?none? ROS: ROS Constitutional: Negative for??chills,??fever??and malaise/fatigue.?Negative for decreased appetite?? HENT: Negative for??congestion,??sore throat??and tinnitus. ?? Respiratory: Negative for??cough,??hemoptysis,??sputum production??and shortness of breath. ?? Cardiovascular: Negative for??chest pain??and leg swelling. Gastrointestinal:?Refer to HPI.?? Genitourinary: Negative for??dysuria??and hematuria. Musculoskeletal: Negative for??joint pain??and myalgias. Neurological: Positive for??seizures??(general seizure disorder. Black out vision at age 12 and wason medication until 18 years old. Now back on medication and wants to go off of them and is trying to go to sz clinic to [facility]). Negative for??dizziness??and headaches. Endo/Heme/Allergies:??Does not bruise/bleed easily. Psychiatric/Behavioral: Positive for??depression??(Slight due to loss of grandmother 2 months ago).The patient??is not nervous/anxious.?Family in [place].? Medications: Current Outpatient Medications: ??? adalimumab (HUMIRA PEN) 40 MG/0.4ML pen-injector kit, Citrate free formula. Inject 40 mg (0.4 ml) pen Subcutaneously every other week., Disp: 2 each, Rfl: 4 ??? azaTHIOprine 50 MG tablet, Take 1 tablet (50 mg total) by mouth daily., Disp: 90 tablet, Rfl: 1 ??? AZURETTE 0.15-0.02/0.01 MG (16/10) tablet, Take 1 tablet by mouth once daily, Disp: 84 tablet, Rfl: 0 ??? cetirizine 10 MG tablet, Take 10 mg by mouth daily., Disp: , Rfl: ??? levETIRAcetam 750 MG tablet, TAKE 1 TABLET TWICE DAILY FOR THE FIRST WEEK THEN TAKE 2 TABLET TWICE DAILY FOR THE SECOND WEEK DIRECTED, Disp: , Rfl: ??? Na sulfate-K sulfate-Mg sulfate (SUPREP BOWEL PREP KIT) 17.5-3.13-1.6 GM/177ML Solution, Take 177 mLs by mouth every 12 (twelve) hours. Take as directed by instruction sheet., Disp: 354 mL, Rfl: 0 ??? dicyclomine 20 MG tablet, Take 1 tablet (20 mg total) by mouth every 6 (six) hours., Disp: 120 tablet, Rfl: 1 ??? divalproex DR goff 125 MG capsule, Take 3 capsules in the morning and 4 capsules in the evening. (Patient taking differently: Indications: 2 capsules in AM 3 capsules in pm Take 3 capsules inthe morning and 4 capsules in the evening.), Disp: 210 capsule, Rfl: 1 ??? Levocetirizine Dihydrochloride (XYZAL OR), , Disp: , Rfl: ??? predniSONE 5 mg tablet, Please start at 10 mg x 2 weeks then 5 mg x 2 weeks and discontinue., Disp: 42 tablet, Rfl: 0 Allergies: No Known Allergies Medical History: Past Medical History: Diagnosis Date ??? Seizures (CMS/HCC) ??? Ulcerative colitis (CMS/HCC) 06/28/2019 Dr. Omar Johns moderate to severe reed ulcerative colitis Surgical History: Past Surgical History: Procedure Laterality Date ??? COLONOSCOPY N/A 06/28/2019 COLONOSCOPY WITH BIOPSIES performed by Omar Johns MD at [facility] OR ulcerative pancolitis ??? TONSILLECTOMY Social History: Social History Tobacco Use ??? Smoking status: Never Smoker ??? Smokeless tobacco: Never Used Substance Use Topics ??? Alcohol use: Yes Frequency: Monthly or less Drinks per session: 1 or 2 Comment: occasional ??? Drug use: No Family History: No family history on file. PE: Filed Vitals: 07/23/20 1458 07/23/20 1556 BP: (!) 126/94 126/84 Pulse: 104 Resp: 20 Temp: 97.4 ??F (36.3 ??C) SpO2: 96% Weight: 135.2 kg (298 lb) Height: 5' 11 (1.803 m) Physical Exam Constitutional: Appearance: She is well-developed. Cardiovascular: Rate and Rhythm: Normal rate and regular rhythm. Pulmonary: Effort: No respiratory distress. Breath sounds: Normal breath sounds. Abdominal: General: Bowel sounds are normal. Palpations: Abdomen is soft. Tenderness: There is no abdominal tenderness. Skin: General: Skin is warm and dry. Neurological: Mental Status: She is alert. Labs Reviewed: Lab Results Component Value Date WBC 13.2 (H) 07/23/2020 RBC 4.79 07/23/2020 HGB 13.9 07/23/2020 HCT 42.1 07/23/2020 RDW 12.9 07/23/2020 PLT 331 07/23/2020 NA 137 07/23/2020 K 3.8 07/23/2020 CL 106 07/23/2020 AGAP 6.5 07/23/2020 GLU 78 07/23/2020 BUN 9 07/23/2020 CR 0.78 07/23/2020 GFRNON >90 07/23/2020 GFR >90 07/23/2020 CA 9.4 07/23/2020 ALB 3.7 07/23/2020 ALT 14 07/23/2020 AST 11 (L) 07/23/2020 ALKP 70 07/23/2020 Results for PAIGE ZAVALETA ( ) as of 07/22/2019 08:41 ?? Ref. Range 06/28/2019 12:54 HAV IgM Latest Ref Range: NON-REACTIVE NON-REACTIVE HB Core IgM Latest Ref Range: NON-REACTIVE NON-REACTIVE HBS Antigen Latest Ref Range: NON-REACTIVE NON-REACTIVE HEP C Ab. Latest Ref Range: NON-REACTIVE NON-REACTIVE Results for PAIGE ZAVALETA ( ) as of 07/22/2019 08:41 ?? Ref. Range 06/28/2019 12:54 NIL (TB) Latest Units: IU/mL 0.02 Results for PAIGE ZAVALETA ( ) as of 07/22/2019 08:41 ?? Ref. Range 06/28/2019 12:54 MITOGEN-NIL Latest Units: IU/mL 5.79 TPMT ACTIVITY Unknown 18 ?? Imagin12/15/2018 CT of abdomen and pelvis with contrast FINDINGS: ?? ABDOMEN: Imaging of the lung bases demonstrates no airspace consolidation or effusions. Liver: Normal in size and CT density. No masses. Spleen: Normal size and CT density. Pancreas: Normal size and CT density. No duct dilatation. No masses. Adrenal Glands: Normal in size and CT density. No masses. Gallbladder and bile ducts: Normal in appearance. No duct dilatation. Kidneys: Normal shape, size and position. No right or left hydronephrosis. Symmetric perfusion. No masses. Aorta: Patent. Normal in caliber. ?? IVC: Patent. Normal in caliber. ?? GI Tract: No small bowel obstruction. Mildly prominent right lower quadrant mesenteric lymph nodes. No ascites or pneumoperitoneum is seen. ?? PELVIS: Colon: Normal in caliber and appearance without focal inflammatory changes. Appendix: Normal. Urinary Bladder: Well distended. Uterus &??Adnexa: Uterus unremarkable. ??A 4 cm right ovarian cyst. No pelvic free fluid, hematoma, mass or adenopathy. ?? BONES: No distinct destructive bony lesions. ?? IMPRESSION: ?? 1. No acute intra-abdominal or pelvic abnormality to account for reported symptoms. ?? 2. No bowel obstruction or acute appendicitis. ?? 3. No acute obstructive uropathy. ?? 4. Nonspecific mildly prominent right lower quadrant mesenteric lymph nodes which can be seen with mesenteric adenitis and enteritis in the appropriate clinical setting. ?? 5. A 4 cm right ovarian cyst which is likely physiologic. ? Endoscopic Results Reviewed: 06/28/[address] Johns Findings:??Diffuse moderate severe pancolitis likely ulcerative colitis. ??Extensive biopsies taken. ??Will initiate prednisone therapy today. ??Patient will be checked for TP MT level, TB QuantiFERON gold levels as well as a hepatitis B. ??She should be started on biological agents such as Humira plus immunomodulators. ??We will need to see her back in the office. ?? Plan:??Await biopsies. ??Start prednisone 40 mg daily to taper over a month. ??She will likely benefit from Humira plus immunosuppressant. ?? MICROSCOPIC DIAGNOSIS: ? I. ??Random biopsies from right colon: ?? - Diffuse active colitis with cryptitis and crypt architecture distortion. - Ulceration of the mucosa. ?? II. ??Random biopsies from transverse colon: - Diffuse active colitis with cryptitis, ulceration, and distortion of crypt architecture. ?? III. ??Random biopsies from left colon: - Diffuse active colitis with cryptitis, crypt abscesses, distortion of architecture of the crypts ??(ulcerative colitis). ?? IV. ??Random biopsies from rectum: ?? - Diffuse active colitis with cryptitis, ulceration, areas ??granulation tissue (specimen is consistent with ulcerative colitis). Diagnoses/Impression: Ulcerative colitis (cms/hcc) (primary encounter diagnosis) 1.??Ulcerative pancolitis: Patient notes she is doing very well on her Humira and Imuran 50 mg daily until about 2 months ago she did have a precipitating event with the loss of her grandmother sincethat time she is continue to have fecal urgency with every meal. Occasional blood in the stool, no nocturnal symptoms but does have abdominal cramps associated with bowel movements. Bowel movements can be loose to watery usually 3-5 times per day. Past colonoscopy was about a year ago. Patient was to have the repeat 6 months ago however due to Covid she declined this. Patient is not receptive to having another colonoscopy. Last colonoscopy revealed moderate to severe pancolitis endoscopically. Diffuse active colitis with cryptitis, ulceration, areas ??granulation tissue (specimen is consistent with ulcerative colitis). Normal range TPMT level, - TB QuantiFERON gold levels,- hepatitis panel.07/10/2019 Azathiaprine 50 mg daily and Humira every 2 weeks. Reviewed with pt the side effects, need to avoid , and provided patient information on Humira. Instructed patient to start using dicyclomine as she may have some irritable bowel associated to her ulcerative colitis as well. Patient is somewhat receptive to this. She will continue her Humira and Imuran and is agreeable to try dicyclomine up to 4 times a day. Patient denies any weight loss but has had some weight gain. No dizzin ess, Notifications, or fatigue. ? 2. ??Generalized abdominal pain: Has recently returned with Humira and Imuran therapy more so with postprandial fecal urgency and abdominal cramping. 3. ??Comorbid Conditions:??Seizures on Keppra ?? Recommendations and Plan: ?? Schedule colonoscopy to assess for mucosal and histologic healing as patient has been on biologic for 12 months now. ?? Suprep bowel prep ?? Continue on Azothiaprine 50 mg daily with the Humira use. ?? CMP, CRP, and CBC Now as pt has not been performing labs as requested previously. ?? Continue immunizations from PCP for hepatitis B. ?? Follow low residue diet and provided pt with diet and nutrition with IBD, Managing flares, and UC information booklets from [employer]. ?? Dicyclomine 10 mg before meals and at bedtime as needed for abdominal cramping and/or fecal urgency. ?? May need to consider prednisone if colonoscopy exhibits exacerbation of ulcerative colitis. Patient has been doing very well on current regime until 2 months ago. ?? All questions answered ?? Follow-up pending endoscopic evaluation or worsening of current condition. Orders placed this encounter: Orders Placed This Encounter ??? CBC W/DIFF AUTOMATED ??? COMPREHENSIVE METABOLIC PANEL ??? C-REACTIVE PROTEIN ??? Na sulfate-K sulfate-Mg sulfate (SUPREP BOWEL PREP KIT) 17.5-3.13-1.6 GM/177ML Solution Risks, benefits, alternatives as well as the consequences of not performing the surgery/procedure were discussed with the patient and/or family/personal patient account representative. Risks can include but are not limited to: discomfort, missing lesions, allergic or adverse reaction to the sedative, perforation of the bowel which may require hospitalization and surgery, bleeding, infection, aspiration, and evendeath. Questions were answered and the patient/family/personal patient account representative verbalized understanding anddesires to proceed. Seble Bliss NP 07/24/2020 Cosigned by Omar Johns MD at 07/27/2020 5:29 PM COOK DINNER DINNER DINNER documented in this encounter Plan of Treatment Upcoming Encounters Date Type Department Care Team (Late st Contact Info) Description 08/21/2024 4:00 PM CDT Office Visit [facility] Family Medicine - [place] [phone] Charla Campos PA-C [address] [place] [id number] documented as of this encounter Results * (ABNORMAL) C-REACTIVE PROTEIN (07/23/2020 4:19 PM COOK DINNER) C-REACTIVE PROTEIN 0.80(H) <0.29 mg/dL 07/23/2020 4:57 PM COOK DINNER [facility] 07/23/2020 4:19 PM COOK DINNER us Seble Bliss NP LABORATORY Final Result [facility] [address] [place] [address], * (ABNORMAL) COMPREHENSIVE METABOLIC PANEL (07/23/2020 4:19 PM COOK DINNER) [facility] GLUCOSE 78 70 - 99 MG/DL 07/23/2020 4:57 PM COOK DINNER [facility] BUN 9 7 - 18 MG/DL 07/23/2020 4:57 PM [facility] CREATININE S/P/B 0.78 0.55 - 1.02 MG/DL 07/23/2020 4:57 PM [facility] SODIUM S/P/B 137 136 - 145 MMOL/L 07/23/2020 4:57 PM [facility] POTASSIUM S/P/B 3.8 3.5 - 5.1 MMOL/L 07/23/2020 4:57 PM [facility] CHLORIDE S/P/B 106 100 - 108 MMOL/L 07/23/2020 4:57 PM [facility] CO2 24.5 21 - 32 MMOL/L 07/23/2020 4:57 PM [facility] CALCIUM S/P/B 9.4 8.5 - 10.1 MG/DL 07/23/2020 4:57 PM [facility] BILIRUBIN TOTAL S/P/B 0.4 0.2 - 1.2 MG/DL 07/23/2020 4:57 PM [facility] Comment: THIS ASSAY IS NOT RECOMMENDED FOR PATIENTS UNDERGOING TREATMENT WITH ELTROMBOPAG DUE TO THE POTENTIAL FOR FALSELY ELEVATED RESULTS. TOTAL PROTEIN S/P/B 7.9 6.4 - 8.2 G/DL 07/23/2020 4:57 PM [facility] ALBUMIN S/P/B 3.7 3.4 - 5.0 G/DL 07/23/2020 4:57 PM COOK DINNER [facility] AST 11(L) 15 - 37 U/L 07/23/2020 4:57 PM COOK DINNER [facility] ALT 14 14 - 55 U/L 07/23/2020 4:57 PM [facility] ALKALINE PHOSPHATASE S/P/B 70 50 - 136 U/L 07/23/2020 4:57 PM COOK DINNER [facility] ANION GAP 6.5 5 - 15 MMOL/L 07/23/2020 4:57 PM [facility] BUN CREATININE RATIO 11.5 6 - 26 07/23/2020 4:57 PM [facility] A/G RATIO 0.9(L) 1.0 - 2.0 RATIO 07/23/2020 4:57 PM [facility] EGFR NON-AFR. AMER. >90 >90 ML/MIN/1.7 3 M2 07/23/2020 4:57 PM [facility] EGFR AFR. AMER. >90 >90 ML/MIN/1.7 3 M2 07/23/2020 4:57 PM [facility] Comment: NOTE: eGFR is not calculated for patients <18 years of age. This is an estimated GFR (CKD EPI) and should not be used for calculating drug doses. 07/23/2020 4:19 PM COOK DINNER us Seble Bliss NP LABORATORY Final Result [facility] [address] [place] [address], [place] [phone] * (ABNORMAL) CBC W/DIFF AUTOMATED (07/23/2020 4:19 PM COOK DINNER) WBC 13.2(H) 4.5 - 11.0 x10'3/uL 07/23/2020 4:35 PM [facility] RBC 4.79 4.20 - 5.40 x10'6/uL 07/23/2020 4:35 PM [facility] HGB 13.9 12.0 - 16.0 G/DL 07/23/2020 4:35 PM [facility] HCT 42.1 38.0 - 48.0 % 07/23/2020 4:35 PM [facility] MCV 87.9 81.0 - 99.0 FL 07/23/2020 4:35 PM [facility] MCH 29.0 27.0 - 31.0 PG 07/23/2020 4:35 PM [facility] MCHC 33.0 32.0 - 36.0 G/DL 07/23/2020 4:35 PM [facility] RDW 12.9 11.5 - 14.5 % 07/23/2020 4:35 PM [facility] PLT 331 130 - 400 x10'3/uL 07/23/2020 4:35 PM [facility] MPV 9.8 9.3 - 12.2 FL 07/23/2020 4:35 PM [facility] DIFFERENTIAL TYPE AUTOMATED DIFFERENTIAL 07/23/2020 4:35 PM [facility] NEUTROPHILS % 54.1 % 07/23/2020 4:35 PM [facility] LYMPHOCYTES % 32.0 % 07/23/2020 4:35 PM [facility] MONOCYTES % 10.0 % 07/23/2020 4:35 PM [facility] EOSINOPHILS 2.9 % 07/23/2020 4:35 PM COOK DINNER [facility] BASOPHILS 0.7 % 07/23/2020 4:35 PM COOK DINNER [facility] IMMATURE GRANS % 0.3 % 07/23/19 4:35 PM [facility] ABS. NEUTROPHILS TOTAL 7.17 1.80 - 7.70 x10'3/uL 07/23/2020 4:35 PM COOK DINNER [facility] ABS. LYMPHOCYTES 4.24 1.00 - 4.80 x10'3/uL 07/23/2020 4:35 PM COOK DINNER [facility] ABS. MONOCYTES 1.32(H) 0.24 - 0.86 x10'3/uL 07/23/2020 4:35 PM COOK DINNER [facility] ABS. EOSINOPHILS 0.38(H) 0.04 - 0.36 x10'3/uL 07/23/2020 4:35 PM COOK DINNER [facility] ABS. BASOPHILS 0.09(H) 0.01 - 0.08 x10'3/uL 07/23/2020 4:35 PM [facility] ABS. IMMATURE GRANULOCYTES 0.04 0.00 - 0.49 x10'3/uL 07/23/2020 4:35 PM [facility] 07/23/2020 4:19 PM COOK DINNER Seble Bliss NP LABORATORY Final Result [facility] [address] [place] [address], [place] [phone] documented in this encounter Visit Diagnoses Diagnosis Ulcerative pancolitis with rectal bleeding (CMS/HCC HHS/HCC)- Primary documented in this encounter
--- OUTSIDE RECORDS SUMMARY | 2024-06-08 07:54 | XMS_ITS | Encounter Summary ---
Author Organization [facility] Address [address] [place] [address]. [place] [address] [place] [address] Care Team Providers Care Stepdown Nurse Name Role Phone Unavailable Primary Care Provider Unavailabl e Encounter Details Date Type Department Care Team (Latest Contact Info) Description 07/23/2020 Travel Social History Tobacco Use Types Packs/Day [...] COVID-19? 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
--- OUTSIDE RECORDS SUMMARY | 2024-06-08 07:54 | XMS_ITS | Encounter Summary ---
Author Organization [facility] Address [address] [place] [address]. [place], [place] [id number] [place] [address] Care Team Providers Care Power System Dispatcher Name Role Phone Unavailable Primary Care Provider Unavailabl e Encounter Details Date Type Department Care Team (Latest Contact Info) Description 07/24/2020 Scan HEALTH INFO SRVCS Scanned, Documents Social [...] [facility] Family Medicine - [place] [address] [place] [phone] Charla Campos PA-C [address] [place] [address] documented as of this encounter Visit Diagnoses Not on filedocumented in this encounter Additional Health Concerns Infection Onset Date Last Indicated Resolved Time COVID-19 Rule Out 08/21/2020 08/21/2020 08/22/2020 10:36 AM CDT documented as of this encounter
--- OUTSIDE RECORDS SUMMARY | 2024-06-08 07:54 | XMS_ITS | Encounter Summary ---
Author Organization [facility] Address [address] [place] [address]. [place] [address] [place] [address] Care Team Providers Care Turner And Former Automatic Name Role Phone Unavailable Primary Care Provider Unavailabl e Reason for Referral * Surgical (Routine) - Closed Specialty Diagnoses / Procedures Referred By Yodit kenney Referred To Contact Diagnoses Ulcerative colitis ([facility] HHS/HCC) Ulcerative pancolitis without complication ([facility]) Procedures Case request operating room: COLONOSCOPY Omar Johns MD [address] [place] [id number] Phone: tel: fax: Referral ID Status Reason Start Date Expiration Date Visits Re quested Visits Authorized [id number] Closed 07/24/2020 08/21/2021 1 1 GING DIRECTOR Encounter Details Date Type Department Care Team (Late st Contact Info) Description 07/24/2020 Orders Only [facility] Medical Group Multispecialty Care - [address] [place] [phone] Omar Johns MD [address] [place] [address] [place] [phone] Social History Tobacco Use Types Packs/Day Years [...] COVID-19? No / Unsure 07/23/2020 2:43 PM MANAGING DIRECTOR documented as of this encounter Plan of Treatment Upcoming Encounters Date Type Department Care Team (Late st Contact Info) Description 08/21/2024 4:00 PM CDT Office Visit [facility] Medical Group Family Medicine - [address] [phone] Charla Campos PA-C [address] [place] [phone] Scheduled Orders Name Type Priority Associated Diagnoses Orde r Schedule Case request operating room: COLONOSCOPY Case Request Routine Ulcerative colitis ([facility]) Ulcerative pancolitis without complication ([facility]/HCC) Ordered: 07/24/2020 documented as of this encounter Visit Diagnoses Diagnosis Ulcerative colitis ([facility] HHS/HCC)- Primary Ulcerative colitis, unspecified Ulcerative pancolitis without complication ([facility] HHS/HCC) documented in this encounter
--- OUTSIDE RECORDS SUMMARY | 2024-06-08 07:54 | XMS_ITS | Encounter Summary ---
Author Organization [facility] Address [address] [place] [address]. [place] [address] [place] [address] Care Team Providers Care Electrical Superintendent Name Role Phone Unavailable Primary Care Provider Unavailabl e Encounter Details Date Type Department Care Team (Latest Contact Info) Description 07/23/2020 4:12 PM POULTRY DEBEAKER - 07/23/2020 11:59 PM POULTRY DEBEAKER Hospital Encounter [facility] [place], [place] [phone] Seble Bliss, JORI 3 [facility]. [address] [place], [place] [phone] Discharge Disposition: Home or Self Care (Routine [...] COVID-19? No / Unsure 07/23/2020 2:43 PM POULTRY DEBEAKER documented as of this encounter Medications at [...] DR sprinkle 125 MG capsuleIndications:S eizure disorder (CMS/HCC HHS/HCC) Take 3 capsules in the morning and 4 capsules in the evening. 210 capsule 1 9 08/25/19 21 levETIRAcetam 750 MG tablet TAKE 1 TABLET TWICE DAILY FOR THE FIRST WEEK THEN TAKE 2 TABLET TWICE DAILY FOR THE SECOND WEEK DIRECTED 0 05/17/20 22 Levocetirizine Dihydrochloride (XYZAL OR) 12/29/19 21 Na sulfate-K sulfate-Mg sulfate (SUPREP BOWEL PREP KIT) 17.5-3.13-1.6 GM/177ML SolutionIndications: Ulcerative pancolitis with rectal bleeding (CMS/HCC HHS/HCC) Take 177 mLs by mouth every 12 (twelve) hours. Take as directed by instruction sheet. 354 mL 1 08/08/19 21 predniSONE 5 mg tabletIndications:Ul cerative pancolitis without complication (CMS/HCC HHS/HCC) Please start at 10 mg x 2 weeks then 5 mg x 2 weeks and discontinue. 42 tablet 0 08/20/19 21 documented as of this encounter Progress Notes * Seble Bliss NP - 07/23/2020 4:15 PM CST Called and reviewed findings of CBC, CMP and CRP with patient. No new orders provided for patient at this time. Patient is scheduled to have colonoscopy to evaluate status of ulcerative colitis. TRY DEBEAKER documented in this encounter Plan of Treatment Upcoming Encounters Date Type Department Care Team (Late st Contact Info) Description 08/21/2024 4:00 PM CDT Office Visit [facility] Medical Group Family Medicine - [address] [phone] Charla Campos PA-C [address] [place] [phone] documented as of this encounter Procedures Procedure Name Priority Date/Time Associated Diagnosis Comments COMPREHENSIVE METABOLIC PANEL Routine 07/23/2020 4:19 PM POULTRY DEBEAKER Ulcerative colitis ([facility]) C-REACTIVE PROTEIN Routine 07/23/2020 4: 19 PM POULTRY DEBEAKER Ulcerative colitis ([facility]) CBC W/DIFF AUTOMATED Routine 07/23/2020 4:19 PM POULTRY DEBEAKER Ulcerative colitis ([facility]) documented in this encounter Results * (ABNORMAL) C-REACTIVE PROTEIN (07/23/2020 4:19 PM POULTRY DEBEAKER) C-REACTIVE PROTEIN 0.80(H) <0.29 mg/dL 07/23/2020 4:57 PM POULTRY DEBEAKER [facility] 07/23/2020 4:19 PM POULTRY DEBEAKER us Seble Bliss NP LABORATORY Final Result [facility] [address] [place] [address], [place] [phone] * (ABNORMAL) COMPREHENSIVE METABOLIC PANEL (07/23/2020 4:19 PM POULTRY DEBEAKER) [facility] GLUCOSE 78 70 - 99 MG/DL 07/23/2020 4:57 PM POULTRY DEBEAKER [facility] BUN 9 7 - 18 MG/DL 07/23/2020 4:57 PM [facility] CREATININE S/P/B 0.78 0.55 - 1.02 MG/DL 07/23/2020 4:57 PM [facility] SODIUM S/P/B 137 136 - 145 MMOL/L 07/23/2020 4:57 PM [facility] POTASSIUM S/P/B 3.8 3.5 - 5.1 MMOL/L 07/23/2020 4:57 PM [facility] CHLORIDE S/P/B 106 100 - 108 MMOL/L 07/23/2020 4:57 PM [facility] CO2 24.5 21 - 32 MMOL/L 07/23/2020 4:57 PM [facility] CALCIUM S/P/B 9.4 8.5 - 10.1 MG/DL 07/23/2020 4:57 PM [facility] BILIRUBIN TOTAL S/P/B 0.4 0.2 - 1.2 MG/DL 07/23/2020 4:57 PM [facility] Comment: THIS ASSAY IS NOT RECOMMENDED FOR PATIENTS UNDERGOING TREATMENT WITH ELTROMBOPAG DUE TO THE POTENTIAL FOR FALSELY ELEVATED RESULTS. TOTAL PROTEIN S/P/B 7.9 6.4 - 8.2 G/DL 07/23/2020 4:57 PM [facility] ALBUMIN S/P/B 3.7 3.4 - 5.0 G/DL 07/23/2020 4:57 PM POULTRY DEBEAKER [facility] AST 11(L) 15 - 37 U/L 07/23/2020 4:57 PM POULTRY DEBEAKER [facility] ALT 14 14 - 55 U/L 07/23/2020 4:57 PM [facility] ALKALINE PHOSPHATASE S/P/B 70 50 - 136 U/L 07/23/2020 4:57 PM POULTRY DEBEAKER [facility] ANION GAP 6.5 5 - 15 MMOL/L 07/23/2020 4:57 PM [facility] BUN CREATININE RATIO 11.5 6 - 26 07/23/2020 4:57 PM [facility] A/G RATIO 0.9(L) 1.0 - 2.0 RATIO 07/23/2020 4:57 PM [facility] EGFR NON-AFR. AMER. >90 >90 ML/MIN/1.7 3 M2 07/23/2020 4:57 PM [facility] EGFR AFR. AMER. >90 >90 ML/MIN/1.7 3 M2 07/23/2020 4:57 PM [facility] Comment: NOTE: eGFR is not calculated for patients <18 years of age. This is an estimated GFR (CKD EPI) and should not be used for calculating drug doses. 07/23/2020 4:19 PM POULTRY DEBEAKER us Seble Bliss NP LABORATORY Final Result [facility] [address] [place] [address], * (ABNORMAL) CBC W/DIFF AUTOMATED (07/23/2020 4:19 PM POULTRY DEBEAKER) WBC 13.2(H) 4.5 - 11.0 x10'3/uL 07/23/2020 4:35 PM [facility] RBC 4.79 4.20 - 5.40 x10'6/uL 07/23/2020 4:35 PM [facility] HGB 13.9 12.0 - 16.0 G/DL 07/23/2020 4:35 PM [facility] HCT 42.1 38.0 - 48.0 % 07/23/2020 4:35 PM [facility] MCV 87.9 81.0 - 99.0 FL 07/23/2020 4:35 PM [facility] MCH 29.0 27.0 - 31.0 PG 07/23/2020 4:35 PM [facility] MCHC 33.0 32.0 - 36.0 G/DL 07/23/2020 4:35 PM [facility] RDW 12.9 11.5 - 14.5 % 07/23/2020 4:35 PM [facility] PLT 331 130 - 400 x10'3/uL 07/23/2020 4:35 PM [facility] MPV 9.8 9.3 - 12.2 FL 07/23/2020 4:35 PM [facility] DIFFERENTIAL TYPE AUTOMATED DIFFERENTIAL 07/23/2020 4:35 PM [facility] NEUTROPHILS % 54.1 % 07/23/2020 4:35 PM [facility] LYMPHOCYTES % 32.0 % 07/23/2020 4:35 PM [facility] MONOCYTES % 10.0 % 07/23/2020 4:35 PM [facility] EOSINOPHILS 2.9 % 07/23/2020 4:35 PM [facility] BASOPHILS 0.7 % 07/23/2020 4:35 PM POULTRY DEBEAKER [facility] IMMATURE GRANS % 0.3 % 07/23/19 4:35 PM POULTRY DEBEAKER [facility] ABS. NEUTROPHILS TOTAL 7.17 1.80 - 7.70 x10'3/uL 07/23/2020 4:35 PM POULTRY DEBEAKER [facility] ABS. LYMPHOCYTES 4.24 1.00 - 4.80 x10'3/uL 07/23/2020 4:35 PM POULTRY DEBEAKER [facility] ABS. MONOCYTES 1.32(H) 0.24 - 0.86 x10'3/uL 07/23/2020 4:35 PM POULTRY DEBEAKER [facility] ABS. EOSINOPHILS 0.38(H) 0.04 - 0.36 x10'3/uL 07/23/2020 4:35 PM POULTRY DEBEAKER [facility] ABS. BASOPHILS 0.09(H) 0.01 - 0.08 x10'3/uL 07/23/2020 4:35 PM POULTRY DEBEAKER [facility] ABS. IMMATURE GRANULOCYTES 0.04 0.00 - 0.49 x10'3/uL 07/23/2020 4:35 PM [facility] 07/23/2020 4:19 PM POULTRY DEBEAKER Seble Bliss NP LABORATORY Final Result [facility] [address] [place] [address], [place] [phone] documented in this encounter Visit Diagnoses Diagnosis Ulcerative colitis ([facility]/HCC [facility]/HCC) Ulcerative colitis, unspecified documented in this encounter
--- OUTSIDE RECORDS SUMMARY | 2024-06-08 07:55 | XMS_ITS | Encounter Summary ---
Author Organization [facility] Address [address] [place] [address]. [place], [place] [id number] [place] [address] Care Team Providers Care Community Service Patrol Officer Name Role Phone Unavailable Primary Care Provider Unavailabl e Reason for Visit * Reason Onset Date Comments Orders 10/31/2019 Encounter Details Date Type Department Care Team (Late st Contact Info) Description 10/31/2019 Telephone [facility] Group Multispecialty Care - [facility] [address] [facility], [address] [place] [address] Omar Johns MD 3 [facility] [address] [place] [address] Orders Social History Tobacco Use Types Packs/Day [...] encounter Progress Notes * Xochitl Escobedo - 10/31/2019 10:57 AM CDT Spoke with patient questions answered. * Xochitl Escobedo - 10/31/2019 10:48 AM CDT Returned patient's call no answer left a voicemail message. * Sailaja Packer - 10/31/2019 10:34 AM CDT Pt will be coming to the hospital this afternoon for her lab work that she typically gets every other month. She is making sure the order is in and ready to go. Please check documented in this encounter Plan of Treatment Upcoming Encounters Date Type Department Care Team (Late st Contact Info) Description 08/21/2024 4:00 PM CDT Office Visit [facility] Medical Group Family Medicine - [place] [phone] Charla Campos PA-C [address] [place] [phone] documented as of this encounter Visit Diagnoses Not on filedocumented in this encounter
--- OUTSIDE RECORDS SUMMARY | 2024-06-08 07:55 | XMS_ITS | Encounter Summary ---
Author Organization [facility] Address [address] [place] [address]. [place] [address] [place] [address] Care Team Providers Care Cad Detailer Name Role Phone Unavailable Primary Care Provider Unavailabl e Encounter Details Date Type Department Care Team (Late Contact Info) Description 03/06/2020 Orders Only [facility] Multispecialty Care - [facility] [address] [facility], [address] [place] [phone] Seble Bliss, JORI [address] [facility]. [address] [place] [address] Social History Tobacco Use Types Packs/Day Years [...] Encounters Date Type Department Care Team (Late Contact Info) Description 08/21/2024 4:00 PM CDT Office Visit [facility] Family Medicine - [place] [address] [facility] [place] [phone] Charla Campos PA-C [address] [place] [phone] documented as of this encounter Visit Diagnoses Diagnosis Ulcerative pancolitis without complication (CMS/HCC HHS/HCC) documented in this encounter
--- OUTSIDE RECORDS SUMMARY | 2024-06-08 07:55 | XMS_ITS | Encounter Summary ---
Author Organization [facility] Address [address] [place] [address]. [place] [address] [place] [address] Care Team Providers Care Rn Pool Name Role Phone Unavailable Primary Care Provider Unavailabl e Reason for Visit * Reason Onset Date Comments Medication Problem 11/14/2019 Encounter Details Date Type Department Care Team (Late st Contact Info) Description 11/14/2019 Telephone [facility] Multispecialty Care - [facility] [address] [facility], [address] [place] [address] Seble Bilss NP 3 [facility]. [address] [place] [address] Medication Problem Social History Tobacco Use Types [...] have Coronavirus / COVID-19? No / Unsure 10/31/2019 3:34 PM CDT documented as of this encounter Progress Notes * Maria Hewitt MA - 11/15/2019 8:28 AM CDT Called pt to let her know that EDGE FINISHER Seble has filled out the documents faxed to us by [facility]. Pt verbalized understanding * Maria Hewitt MA - 11/14/2019 9:29 AM CDT Received prior auth form. Will have EDGE FINISHER Seble fill it out * Tamara Potts - 11/14/2019 9:25 AM CDT Pt said Seble put in a refill on her humira pen to [facility]. She said they contacted her saying they need more info from us and isn't sure what it is about. She said they would be faxing us but it looks like we haven't gotten anything yet. Please call [facility] to see what they need and follow up with pt on status of things. documented in this encounter Plan of Treatment Upcoming Encounters Date Type Department Care Team (Late st Contact Info) Description 08/21/2024 4:00 PM CDT Office Visit [facility] Medical [facility] Family Medicine - [place] [address] [place] [phone] Charla Campos PA-C [address] [facility] [place] [address] documented as of this encounter Visit Diagnoses Not on filedocumented in this encounter
--- OUTSIDE RECORDS SUMMARY | 2024-06-08 07:55 | XMS_ITS | Encounter Summary ---
Author Organization [facility] Address [facility] [facility] [place] [address] [place] [address] Care Team Providers Care Grave Cleaner Name Role Phone Unavailable Primary Care Provider Unavailabl e Reason for Visit * Reason Onset Date Comments Medication Problem 02/17/2020 Encounter Details Date Type Department Care Team (Late st Contact Info) Description 02/17/2020 Telephone [facility] Medical Group Multispecialty Care - [address], [address] [place] [address] Seble Bliss NP 3 [facility]. [address] [place], [place] [phone] Medication Problem Social History Tobacco Use Types [...] Progress Notes * Seble Bliss NP - 02/18/2020 3:53 PM CDT Called pharmacy and it is waiting for pt to flower picker. Tech at [facility] states she will call pt and let her know. No clarification was needed. * Lesly Romero - 02/17/2020 3:37 PM CDT Pt called in stating that she is having a problem getting her script of azathioprine filled becausethere are 2 different RX #'s on file. Pt is in need of a 3 month supply but josiaskaitlinanne marie can't fill it because of needing clarification on which RX number it is. Pt also said she needs to get it filled before the end of January because of insurance. Please call pt back once script is sent. documented in this encounter Plan of Treatment Upcoming Encounters Date Type Department Care Team (Late st Contact Info) Description 08/21/2024 4:00 PM CDT Office Visit [facility] Medical Group Family Medicine - [place] [address] [place] [phone] Charla Campos PA-C [address] [place] [phone] documented as of this encounter Visit Diagnoses Not on filedocumented in this encounter
--- OUTSIDE RECORDS SUMMARY | 2024-06-08 07:55 | XMS_ITS | Encounter Summary ---
Author Organization [facility] Address [address] [place] [address]. [place] [address] [place] [address] Care Team Providers Care Marine Engine Mechanic Name Role Phone Unavailable Primary Care Provider Unavailabl e Reason for Visit * Reason Onset Date Comments Information 09/09/2019 Encounter Details Date Type Department Care Team (Late st Contact Info) Description 09/09/2019 Telephone [facility] Medical Group Multispecialty Care - [facility] [address] [facility], [address] [place] [address] Seble Bliss NP 3 [facility]. [address] [place], [place] [phone] Information Social History Tobacco Use Types Packs/Day [...] Progress Notes * Seble Bliss NP - 09/09/2019 2:07 PM CDT Call patient just to make sure that she is doing okay on Humira injections. She does note that she is doing well. She plans to have her lab work done after the Covid-19 conditions have calmed. Patient is too fearful at this time to get out and get her lab work done. Patient denies any symptoms at this time and bowel habits have been very regular with no bleeding. No voiced concerns at this time patient will call if she has any questions. documented in this encounter Plan of Treatment Upcoming Encounters Date Type Department Care Team (Late st Contact Info) Description 08/21/2024 4:00 PM CDT Office Visit [facility] Medical Group Family Medicine - [place] [address] [place] [phone] Charla Campos PA-C [address] [place] [phone] documented as of this encounter Visit Diagnoses Not on filedocumented in this encounter
--- OUTSIDE RECORDS SUMMARY | 2024-06-08 07:55 | XMS_ITS | Encounter Summary ---
Author Organization [facility] Address [facility] [facility] [place] [address] [place] [address] Care Team Providers Care New Accounts Representative Name Role Phone Unavailable Primary Care Provider Unavailabl e Encounter Details Date Type Department Care Team (Latest Contact Info) Description 10/31/2019 Travel Social History Tobacco Use Types Packs/Day [...] [facility] Medical [facility] Family Medicine - [place] [address] [place] [phone] Charla Campos PA-C [address] [place] [address] documented as of this encounter Visit Diagnoses Not on filedocumented in this encounter
--- OUTSIDE RECORDS SUMMARY | 2024-06-08 07:55 | XMS_ITS | Encounter Summary ---
Author Organization [facility] Address [address] [place] [address]. [place] [address] [place] [address] Care Team Providers Care Molder Trimmer Name Role Phone Unavailable Primary Care Provider Unavailabl e Encounter Details Date Type Department Care Team (Latest Contact Info) Description 10/31/2019 3:34 PM CDT - 10/31/2019 11:59 PM CDT Hospital Encounter [facility] [place], [place] [address] Seble Bliss, JORI 3 [facility]. [address] [place], [place] [phone] Discharge Disposition: Home or Self Care (Routine [...] PM CDT documented as of this encounter Medications at Time of Discharge adalimumab (HUMIRA PEN) 40 MG/0.4ML pen-injector kitIndications:Ulcer ative pancolitis without complication (CMS/HCC HHS/HCC) Citrate free formula. Inject 40 mg (0.4 ml) pen Subcutaneously every other week. 2 each 4 0 11/12/19 20 adalimumab (HUMIRA PEN-CD/UC/HS STARTER) 80 MG/0.8ML pen-injector kitIndications:Ulcer ative pancolitis without complication (CMS/HCC HHS/HCC) Citrate free form. Take 2 Pens 80mg (total 160 mg) SQ injection Day 1, (1 pen) 80 mg SQ injection day 15. For induction dosing then start maintenance dose 1 kit 0 11/12/19 20 azathioprine 50 MG tabletIndications:Ul cerative pancolitis without complication (CMS/HCC HHS/HCC) Take 1 tablet (50 mg total) by mouth daily. 30 tablet 6 0 01/03/20 20 cetirizine 10 MG tablet Take 10 mg by mouth daily. 08/16/19 23 desogestrel-ethinyl estradiol (AZURETTE) 0.15-0.02/0.01 MG (16/10) tabletIndications:Oksana mohr general medical examination at a health care facility Take 1 tablet by mouth daily. 28 tablet 11 9 06/22/19 21 dicyclomine 20 MG tabletIndications:Ch ronic diarrhea Take [...] 22 Levocetirizine Dihydrochloride (XYZAL OR) 12/29/19 21 predniSONE 5 mg tabletIndications:Ul cerative pancolitis without complication (CMS/HCC HHS/HCC) Please start at 10 mg x 2 weeks then 5 mg x 2 weeks and discontinue. 42 tablet 0 08/20/19 21 documented as of this encounter Progress Notes * Karson Payne MD - 10/31/2019 11:59 PM CDT Tell the patient the results are normal and to follow up as needed. * Seble Bliss NP - 10/31/2019 11:59 PM CDT Informed pt of the CBC results. Pt notes she has only 1 month left of her Humira and would like a refill sent. She notes she is doing well on medication and feels she only has troubles with bowel when she eats certain food triggers. documented in this encounter Plan of Treatment Upcoming Encounters Date Type Department Care Team (Late st Contact Info) Description 08/21/2024 4:00 PM CDT Office Visit [facility] Family Medicine - [place] [phone] Charla Campos PA-C [address] [place] [phone] documented as of this encounter Procedures Procedure Name Priority Date/Time Associated Diagnosis Comments TSH W/REFLEX Routine 10/31/2019 3:50 PM CDT Fatigue, unspecified type CBC W/DIFF AUTOMATED Routine 10/31/2019 3:50 PM CDT Ulcerative pancolitis without complication (CMS/HCC HHS/HCC) documented in this encounter Results * (ABNORMAL) CBC W/DIFF AUTOMATED (10/31/2019 3:50 PM CDT) WBC 10.2 4.5 - 11.0 x10'3/uL 10/31/2019 4:12 PM CDT [facility] RBC 4.92 4.20 - 5.40 x10'6/uL 10/31/2019 4:12 PM CDT [facility] HGB 14.0 12.0 - 16.0 G/DL 10/31/2019 4:12 PM CDT [facility] HCT 41.5 38.0 - 48.0 % 10/31/2019 4:12 PM CDT [facility] MCV 84.3 81.0 - 99.0 FL 10/31/2019 4:12 PM CDT [facility] MCH 28.5 27.0 - 31.0 PG 10/31/2019 4:12 PM CDT [facility] MCHC 33.7 32.0 - 36.0 G/DL 10/31/2019 4:12 PM CDT [facility] RDW 13.1 11.5 - 14.5 % 10/31/2019 4:12 PM CDT [facility] PLT 340 130 - 400 x10'3/uL 10/31/2019 4:12 PM CDT [facility] MPV 9.7 9.3 - 12.2 FL 10/31/2019 4:12 PM CDT [facility] DIFFERENTIAL TYPE AUTOMATED DIFFERENTIAL 10/31/2019 4:12 PM CDT [facility] NEUTROPHILS % 41.1 % 10/31/2019 4:12 PM CDT [facility] LYMPHOCYTES % 46.4 % 10/31/2019 4:12 PM CDT [facility] MONOCYTES % 9.5 % 10/31/2019 4:12 PM CDT [facility] EOSINOPHILS 2.0 % 10/31/2019 4:12 PM CDT [facility] BASOPHILS 0.8 % 10/31/2019 4:12 PM CDT [facility] IMMATURE GRANS % 0.2 % 10/31/19 20 4:12 PM CDT [facility] ABS. NEUTROPHILS TOTAL 4.19 1.80 - 7.70 x10'3/uL 10/31/2019 4:12 PM CDT [facility] ABS. LYMPHOCYTES 4.72 1.00 - 4.80 x10'3/uL 10/31/2019 4:12 PM CDT [facility] ABS. MONOCYTES 0.97(H) 0.24 - 0.86 x10'3/uL 10/31/2019 4:12 PM CDT [facility] ABS. EOSINOPHILS 0.20 0.04 - 0.36 x10'3/uL 10/31/2019 4:12 PM CDT [facility] ABS. BASOPHILS 0.08 0.01 - 0.08 x10'3/uL 10/31/2019 4:12 PM CDT [facility] ABS. IMMATURE GRANULOCYTES 0.02 0.00 - 0.49 x10'3/uL 10/31/2019 4:12 PM CDT [facility] 10/31/2019 3:5 0 PM CDT us Seble Bliss NP LABORATORY Final Result [facility] [address] [place] [address], [place] [phone] * TSH W/REFLEX (10/31/2019 3:50 PM CDT) TSH 1.380 0.358 - 3.74 uIU/ML 10/31/2019 4:39 PM CDT [facility] Comment: HIGH DOSES OF BIOTIN MAY INTERFERE WITH THIS TEST RESULT. CORRELATION TO CLINICAL HISTORY AND PRESENTATION RECOMMENDED. FREE T4 NOT INDICATED 10/31/2019 3:50 PM CDT us Karson Payne MD LABORATORY Final Resul t [facility] [address] [place] [address], [place] [phone] documented in this encounter Visit Diagnoses Diagnosis Fatigue, unspecified type Ulcerative pancolitis without complication (CMS/HCC HHS/HCC) documented in this encounter
--- OUTSIDE RECORDS SUMMARY | 2024-06-08 07:55 | XMS_ITS | Encounter Summary ---
Author Organization [facility] Address [address] [place] [address]. [place] [address] [place] [address] Care Team Providers Care Projector Operator Name Role Phone Unavailable Primary Care Provider Unavailabl e Reason for Visit * Reason Onset Date Comments Refill Request 07/07/2020 Encounter Details Date Type Department Care Team (Late st Contact Info) Description 07/07/2020 Telephone [facility] Multispecialty Care - [facility] [address] [facility], [address] [place] [address] Seble Bliss NP 3 [facility]. [address] [place] [address] Refill Request Social History Tobacco Use Types [...] encounter Progress Notes * Xochitl Escobedo - 07/08/2020 11:28 AM CST Spoke with [facility] they will fax over the prior auth form to be completed. TING ENGINEER HELPER * Kaitlynn Healy - 07/07/2020 9:52 AM CST Patient said that her Humira needs to be pr- authorized once a year.. [facility] has faxed over this information twice. Once on 06-25-20 and again on 07-01-20. They have not heard anything. Please followup with patient. TING ENGINEER HELPER documented in this encounter Plan of Treatment Upcoming Encounters Date Type Department Care Team (Late st Contact Info) Description 08/21/2024 4:00 PM CDT Office Visit [facility] Family Medicine - [place] [phone] Charla Campos PA-C [address] [place] [address] documented as of this encounter Visit Diagnoses Not on filedocumented in this encounter
--- OUTSIDE RECORDS SUMMARY | 2024-06-08 07:55 | XMS_ITS | Encounter Summary ---
Author Organization [facility] Address [address] [place] [address]. [place], [place] [phone] [place] [address] Care Team Providers Care Rehabilitation Program Manager Name Role Phone Unavailable Primary Care Provider Unavailabl e Reason for Visit * Reason Onset Date Comments Medication 04/02/2020 Encounter Details Date Type Department Care Team (Late st Contact Info) Description 04/02/2020 Telephone [facility] Multispecialty Care - [facility] 3 [facility], [address] [place] [address] Omar Johns MD 3 [facility] [address] [place] [address] Medication Social History Tobacco Use Types Packs/Day [...] encounter Progress Notes * Xochitl Escobedo - 04/02/2020 8:44 AM CST Patient was informed that her Humira has been approved with [facility] through 06/22/2020. PHONE OPERATORS SUPERVISOR documented in this encounter Plan of Treatment Upcoming Encounters Date Type Department Care Team (Late st Contact Info) Description 08/21/2024 4:00 PM CDT Office Visit [facility] Family Medicine - [place] [phone] Charla Campos PA-C [address] [place] [address] documented as of this encounter Visit Diagnoses Not on filedocumented in this encounter
--- OUTSIDE RECORDS SUMMARY | 2024-06-08 07:55 | XMS_ITS | Encounter Summary ---
Author Organization [facility] Address [address] [place] [address]. [place] [address] [place] [address] Care Team Providers Care Commercial Real Estate Sales Manager Name Role Phone Unavailable Primary Care Provider Unavailabl e Encounter Details Date Type Department Care Team (Late Contact Info) Description 02/05/2020 Orders Only [facility] Multispecialty Care - [facility] 3 [facility], [address] [place] [phone] Seble Bliss, JORI 3 [facility]. [address] [place] [address] Social History Tobacco Use Types Packs/Day Years [...] Description 08/21/2024 4:00 PM CDT Office Visit [facility] Family Medicine - [place] [address] [facility] [place] [phone] Charla Campos PA-C [address] [place] [address] documented as of this encounter Visit Diagnoses Diagnosis Ulcerative pancolitis without complication (CMS/HCC HHS/HCC) documented in this encounter
--- OUTSIDE RECORDS SUMMARY | 2024-06-08 07:55 | XMS_ITS | Encounter Summary ---
Author Organization [facility] Address [facility]6 [facility] [place] [address] [place] [address] Care Team Providers Care [place] Soundings Group Leader Name Role Phone Unavailable Primary Care Provider Unavailabl e Encounter Details Date Type Department Care Team ([facility] Contact Info) Description 11/12/2019 Orders Only [facility] Multispecialty Care - [address], [address] [place] [address] Seble Bliss, JORI 3 [facility]. [address] [place] [address] Social History Tobacco Use Types Packs/Day Years [...] [facility] Family Medicine - [place] [phone] Charla Campos PA-C [address] [place] [address] documented as of this encounter Visit Diagnoses Diagnosis Ulcerative pancolitis without complication (CMS/HCC HHS/HCC) documented in this encounter
--- OUTSIDE RECORDS SUMMARY | 2024-06-08 07:55 | XMS_ITS | Encounter Summary ---
Author Organization [facility] Address [facility]6 [facility] [address] [place] [address] Care Team Providers Care Stone Layer Name Role Phone Unavailable Primary Care Provider Unavailabl e Encounter Details Date Type Department Care Team (Latest Contact Info) Description 08/09/2019 Travel Social History Tobacco Use Types Packs/Day [...] Description 08/21/2024 4:00 PM CDT Office Visit [facility] Family Medicine - [place] [address] [place] [address] Charla Campos PA-C [address] [place] [address] documented as of this encounter Visit Diagnoses Not on filedocumented in this encounter
--- OUTSIDE RECORDS SUMMARY | 2024-06-08 07:55 | XMS_ITS | Encounter Summary ---
Author Organization [facility] Address [address] [place] [address]. [place] [address] [place] [address] Care Team Providers Care South Asian History Professor Name Role Phone Unavailable Primary Care Provider Unavailabl e Reason for Visit * Reason Onset Date Comments Medication Problem 03/30/2020 Encounter Details Date Type Department Care Team (Late st Contact Info) Description 03/30/2020 Telephone [facility] Multispecialty Care - [facility] 3 [facility], [address] [place] [address] Seble Bliss NP 3 [facility]. [address] [place] [address] Medication Problem Social History Tobacco Use Types [...] encounter Progress Notes * Xochitl Escobedo - 03/31/2020 10:19 AM CST Spoke with patient she was informed that Humira is pending with [facility] she will hear from the office as soon as we get an answer. MAKER * Xochitl Escobedo - 03/30/2020 4:17 PM CST [place] prior auth was resent to [facility] through [employer]. MAKER * Xochitl Escobedo - 03/30/2020 2:56 PM CST LVM for patient to give the office a call. MAKER * Lesly Romero - 03/30/2020 8:22 AM CST Pt called in and stated that she is still having issues getting her adalimumab humira pen. Pt stated that [facility] still has not received a prior auth for the script. Please call her pharmacy and call her back to let her know it was done MAKER documented in this encounter Plan of Treatment Upcoming Encounters Date Type Department Care Team (Late st Contact Info) Description 08/21/2024 4:00 PM CDT Office Visit [facility] Family Medicine - [place] [address] [place] [phone] Charla Campos PA-C [address] [place] [address] documented as of this encounter Visit Diagnoses Not on filedocumented in this encounter
--- OUTSIDE RECORDS SUMMARY | 2024-06-08 07:55 | XMS_ITS | Encounter Summary ---
Author Organization [facility] Address [address] [place] [address]. [place] [address] [place] [address] Care Team Providers Care Armoured Car Escort Name Role Phone Unavailable Primary Care Provider Unavailabl e Reason for Visit * Reason Onset Date Comments Prior Authorization 11/15/2019 Encounter Details Date Type Department Care Team (Late st Contact Info) Description 11/15/2019 Telephone [facility] Multispecialty Care - [facility] 3 [facility], [address] [place] [address] Seble Bliss NP 3 [facility]. [address] [place] [address] Prior Authorization Social History Tobacco Use Types [...] as of this encounter Progress Notes * Bindu Griggs MA - 11/15/2019 11:19 AM CDT Spoke with Avis from [facility] and was informed that they now need a prior auth for the quantity of the medication. Please call [phone] and reference case # [id number]. * Maria Hewitt MA - 11/15/2019 9:46 AM CDT Spoke with Marii from [facility]. I told her we had received a prior auth request from [facility]. She said that [facility] and [facility] are associated and that the Humira auth is good till 11/11/2020. Patient's Humira order is scheduled for . [employer]AF[employer] Seble Bliss informed of above. documented in this encounter Plan of Treatment Upcoming Encounters Date Type Department Care Team (Late st Contact Info) Description 08/21/2024 4:00 PM CDT Office Visit [facility] Family Medicine - [place] [address] [place] [phone] Charla Campos PA-C [address] [place] [phone] documented as of this encounter Visit Diagnoses Not on filedocumented in this encounter
--- OUTSIDE RECORDS SUMMARY | 2024-06-08 07:56 | XMS_ITS | Encounter Summary ---
Author Organization [facility] Address [facility]6 [facility] [place] [address] [place] [address] Care Team Providers Care Newsperson Name Role Phone Unavailable Primary Care Provider Unavailabl e Encounter Details Date Type Department Care Team (Latest Contact Info) Description 08/05/2019 Scan HEALTH INFO SRVCS Scanned, Documents Social [...] [facility] Family [facility] - [place] 100 [place] [phone] Charla Campos PA-C 100 [place] [address] documented as of this encounter Visit Diagnoses Not on filedocumented in this encounter
--- OUTSIDE RECORDS SUMMARY | 2024-06-08 07:56 | XMS_ITS | Encounter Summary ---
Author Organization [place] Address [facility] [place] [address] [place] [address] Care Team Providers Care Leather Stitcher Name Role Phone Unavailable Primary Care Provider Unavailabl e Reason for Visit * Reason Comments Follow Up pt is doing alot bet ter * Consultation/Treatment (Routine) - Closed Specialty Diagnoses / Procedures Referred By Contact Referred To Contact NURSE PRACTITIONER / GASTROENTEROLOGY Diagnoses hospital follow up Procedures NEW PATIENT Karson Payne MD [address] [facility] [address] [place] [address] Phone: tel: fax: Seble Bliss NP [address] [facility]. [place] [address] [place] [id number] Phone: tel:[phone] fax:[phone] Referral ID Status Reason Start Date Expiration Date Visits Re quested Visits Authorized [id number] Closed 12/24/2018 01/25/2020 100 100 Encounter Details Date Type Department Care Team (Latest Contact Info) Description 07/22/2019 3:40 PM SWEATBAND SHAPER Office Visit [facility] [address] [facility] [place] [address] Seble Bliss NP [address] [facility] [place], [place] [id number] Follow Up (pt is doing alot better) Social History Tobacco Use Types Packs/Day Years [...] Sign Reading Time Taken Comments Blood Pressure 116/76 07/22/2019 3:48 PM SWEATBAND SHAPER Pulse 88 07/22/2019 3:48 PM SWEATBAND SHAPER Temperature 36.4 ??C (97.6 ??F) 07/22/2019 3:48 PM CS T Respiratory Rate 18 07/22/2019 3:48 PM SWEATBAND SHAPER Oxygen Saturation 97% 07/22/2019 3:48 PM SWEATBAND SHAPER Inhaled Oxygen Concentration - - Weight 130.6 kg (288 lb) 07/22/2019 3:48 PM SWEATBAND SHAPER Height 180.3 cm (5' 11 ) 07/22/2019 3:48 PM SWEATBAND SHAPER Body Mass Index 40.17 07/22/2019 3:48 PM SWEATBAND SHAPER documented in this encounter Patient Instructions * Patient Instructions* Seble Bliss NP - 07/22/2019 3:40 PM SWEATBAND SHAPER Images from the original note were not included. Patient Education Patient Education Patient Education Ulcerative Colitis in Adults The Basics Written by the doctors and editors at [facility] What is ulcerative colitis???--??Ulcerative colitis is a condition that causes diarrhea, belly pain, and bloody bowel movements. These symptoms happen because the large intestine becomes inflamed andgets sores, called ulcers. The large intestine is also called the colon (figure 1). What are the symptoms of ulcerative colitis???--??Symptoms can be mild or severe. They might happenjust once. Or they might go away and come back over and over again. Possible symptoms include: ?? Diarrhea that might happen 10 or more times a day ?? Bloody bowel movements ?? Bleeding from the anus ?? Mucus coming out of the anus ?? Belly cramps ?? Fever ?? Weight loss ?? Swelling and pain in the hips and knees ?? Redness and pain in the eyes ?? Skin rash ?? Ulcers or sores in your mouth Is there a test for ulcerative colitis???--??Yes. There are a few tests that can help doctors diagnose ulcerative colitis. Doctors usually use a test called a sigmoidoscopy or a similar test calleda colonoscopy (figure 2). For these tests, the doctor puts a thin tube into your rectum (the lower part of the large intestine) and threads it up into your colon. The tube has a camera attached to it, so the doctor can look inside your colon. The tube also has tools attached, so the doctor can take samples of tissue to look at under the microscope. Other tests might include X-rays or scans. Do I need to change my diet???--??It depends. There is no specific type of diet that has been proven to help people with ulcerative colitis feel better. But some people do notice that certain foods seem to make symptoms worse. If this happens to you, your doctor might suggest avoiding those foods for a while to see if you feel better. For example, some people feel better if they avoid dairy foodslike milk, yogurt, and cheese. If you do avoid certain foods, your doctor might suggest taking supplements. This can help make sure you are getting the nutrients you need. How is ulcerative colitis treated???--??Depending on your symptoms, your doctor might prescribe: ?? Medicines that you put directly into your rectum - These reduce swelling in mild cases. It takesabout 3 to 4 weeks before they start working. ?? Medicines that you take in a pill - A common one is called 5-ASA. ?? A brief course a steroid medicine - This helps reduce swelling. These medicines are not the sameas the steroids some athletes take illegally. ?? Medicines that work on your immune system - These medicines can help protect your colon from damage. They include biologic medicines such as infliximab (brand name: Remicade), adalimumab (brand name: Humira), and vedolizumab (brand name: Entyvio). For most people, symptoms go away after just a few weeks of treatment. Is surgery an option???--??When medicines don't work, surgery can help. There are 2 types: ?? Surgery to remove the colon, rectum, and anus. People who have this surgery can no longer have bowel movements in the normal way. Instead, their bowel movements come out through a hole in their belly. A plastic bag catches the waste. ?? Surgery to remove just the colon and rectum. After this surgery, the doctor reconnects the smallintestine to the anus. People who have this surgery can have bowel movements in the normal way. What if I want to get ???--??In most cases, ulcerative colitis does not affect a woman's ability to get . If you want to have a baby, talk to your doctor or nurse before you start trying to get . He or she can make sure you get all the tests you need before and during your . It is important for ulcerative colitis to be properly treated during . Your doctor or nurse might want to switch your medicines. That's because some of the medicines used to treat ulcerative colitis might not be safe for a baby. Your doctor might also want to put you on a higher dose of folic acid than women without ulcerative colitis need. Conditions like ulcerative colitis run in families. So, if you have a child, he or she might get it, too. All topics are updated as new evidence becomes available and our peer review process is complete. This topic retrieved from [employer] on: Jan 09, 2019. Topic 44823 Version 11.0 Release: 27.3.2 - C27.227 ?2019??[employer]. and/or its affiliates.??All rights reserved. figure 1: Diagram of the colon and rectum This figure shows the different parts of the colon (also known as the large intestine), the rectum,and the anus. Graphic 66683 Version 7.0 figure 2: Colonoscopy During a colonoscopy, you lie on your side and the doctor or nurse puts a thin tube with a camera into your anus (from behind). Then the doctor or nurse advances the tube into the rectum and colon. The camera sends pictures from inside your colon to a television screen. Graphic 00490 Version 5.0 Consumer Information Use and Disclaimer This information is not specific medical advice and does not replace information you receive from your health care provider. This is only a brief summary of general information. It does NOT include all information about conditions, illnesses, injuries, tests, procedures, treatments, therapies, discharge instructions or life-style choices that may apply to you. You must talk with your health care provider for complete information about your health and treatment options. This information should not be used to decide whether or not to accept your health care provider's advice, instructions or recommendations. Only your health care provider has the knowledge and training to provide advice that is right for you.The use of [employer] content is governed by the [employer] Terms of Use. ??2019 [employer]. All rights reserved. Copyright ?2019??[employer]. and/or its affiliates.??All rights reserved. Patient Education Low Fiber Diet About this topic A low fiber diet contains foods that are low in fiber and easy to digest. This makes it easier for your body to break down the food you eat. A low fiber diet means you are eating less than 10 to 15 grams of fiber a day. A low fiber diet will cause less pressure on your bowels and may help soothe your GI tract. You will also have fewer bowel movements. When is this diet used? Talk to your doctor before you start a low fiber diet. You should only use a low fiber diet for a short time until your signs improve. Then, once you are able to increase your fiber, slowly add foodsback into your diet one at a time. A low fiber diet may also need extra nutrients if it is used over a longer period of time. Talk with your doctor about adding vitamin supplements to your diet. Who should use this diet? This diet may be helpful for people with: ?? Diverticulitis or inflammatory bowel disease, like Crohn's or ulcerative colitis, during times of flare-up ?? Short periods of bowel cramping or loose stools ?? Narrowing of the bowel ?? Rectal bleeding ?? Some kinds of surgery, like hemorrhoidectomy, colostomy, or abdominal surgery What foods are good to eat? ?? Meats and proteins like: ? Tender, well cooked meats ? Chicken ? Fish ? Eggs ? Smooth nut butters ?? Breads and grains like: ? White bread ? Crackers ? Enrique crackers ? Flour tortillas ? White rice ? Plain pasta ? Slovak muffins ?? Milk products like: ? Milk ? Cheese ? Yogurt ? Ice cream ?? Fruits and vegetables like: ? Bananas ? Applesauce ? Melons without seeds ? Fruit or vegetable juice without pulp ? Canned or well-cooked fruits or vegetables without seeds ? Tomato sauce ? Mashed potatoes without skin What foods should be limited or avoided? ?? Meats and proteins like: ? [place] nut butters ? Dried peas or beans ? Nuts or seeds ?? Breads and grains like: ? Whole wheat breads or cereals ? Brown rice ? Breads or crackers with nuts or seeds ? Oatmeal ? Whole wheat pasta ?? Milk products like: ? Yogurt with berries or nuts ?? Fruits and vegetables like: ? Raw or fresh fruits or vegetables ? Salads ? Broccoli ? Cauliflower ? Sycamore ? Potatoes with skin ? Leafy greens like kale or edu greens ? Dried fruit ? Fruit or vegetable juice with pulp ? Berries Helpful tips Sample Daily Menu Breakfast Lunch Dinner 1/2 cup (120 mL) orange juice with no pulp Tuna fish sandwich on white bread 3 ounces (90 grams) broiled fish or chicken 1 cup (240 grams) cereal, like cheerios or corn flakes 1 cup (240 mL) tomato soup with saltine crackers 1/2 cup (120 grams) steamed vegetables, like squash, green beans, or carrots 1/2 cup (120 mL) low-fat milk 1/2 cup (120 grams) white rice or mashed potatoes, or medium baked potato (no skin) 1/2 cup (120 grams) white rice or mashed potatoes, or medium baked potato (no skin) 1 piece white toast 1 piece white or rye bread 1 piece white or rye bread 1 teaspoon (5 grams) margarine or butter 1 teaspoon (5 grams) margarine or butter 1 teaspoon (5 grams) margarine or butter poached egg or egg substitute banana 1/2 cup (120 mL) applesauce Coffee or tea, with sugar and nondairy creamer 1/2 cup (120 mL) juice (apple, tomato) Coffee or tea, with sugar and nondairy creamer ?? Use breads and grains made from refined flour, pasta, and white rice. Do not use whole grain products. ?? Stay away from seeds, nuts, and raw or dried fruits. Also avoid raisins, berries, and foods thathave these things in them. ?? Stay away from fresh fruits and vegetables. ?? Stay away from juices with pulp. ?? Remove skin from fruits and vegetables before cooking. ?? Stay away from prunes and prune juice. ?? Stay away from dried beans and lentils. ?? Limit milk and milk products to 2 cups (480 mL) daily if they make loose stools worse. Do not drink milk if you are lactose intolerant. ?? When you add fiber back into your diet be sure to: ? Check with your doctor first. ? Add fiber in slowly, like one meal per day. ? Let your body adjust before you add in more fiber. Where can I learn more? [employer] http://www.cancer.org/treatment/survivorshipduringandaftertreatment/nutritionfor peoplewithcancer/ufk-xvtpb-mupmg Last Reviewed Date 2018-07-06 Consumer Information Use and Disclaimer This information is not specific medical advice and does not replace information you receive from your health care provider. This is only a brief summary of general information. It does NOT include all information about conditions, illnesses, injuries, tests, procedures, treatments, therapies, discharge instructions or life-style choices that may apply to you. You must talk with your health care provider for complete information about your health and treatment options. This information should not be used to decide whether or not to accept your health care provider???s advice, instructions or recommendations. Only your health care provider has the knowledge and training to provide advice that is right for you. Copyright Copyright ?? 2019 [employer] and its affiliates and/or licensors. All rights reserved. TBAND SHAPER documented in this encounter Progress Notes * Seble Bliss NP - 07/22/2019 3:40 PM CST Images from the original note were not included. Gastroenterology Established Visit Reason for Visit: Follow Up (pt is doing alot better) History of Present Illness: HPI Paige Petty [place]??is a 23-year-old??female??being seen in clinic for referral by Karson Elmer. Patient is here today for follow-up on colonoscopy results, pathology and ulcerative colitis treatment options. Patient notes she did get her hepatitis A and B immunizations. She is currently on her lastday of prednisone 20 mg and continues to take her Imuran 50 mg daily. Patient notes her bowel habits have been very well controlled with the exception of when she eats food with roughage like salads or broccoli she does have more frequent stools. She is becoming very in tune to what she can tolerate and what she cannot in her diet. Patient questions whether she can remain on her medication just watch what she eats for her treatment choice as she really does not want to have any shots or infusions. We discussed her colonoscopy findings as well as pathology with the extent of her reed ulcerative colitis being moderate to severe Dr. Johns notes patient would best be treated with immunosuppressant aswell as biologic agent at this point. Current bowel movement daily loose to formed at 5 AM. No nocturnal defecations. Patient denies any mucus or blood in the stool. ?? Rare generalized abdominal discomfort if stools are more loose. Denies any diarrhea. No nausea, vomiting, dysphagia, heart burn or acid reflux. Appropriate appetite. ?? No constipation or melena. No weight loss. 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 I informed her that she is can be more prone to infections that she will have to use proper hygiene as well as trying to avoid known areas of infection. Patient is question about getting some [facility] paperwork completed in the event she would have a flare in the future. ?? Prior abdominal surgeries: none. No EGDs in the past. 06/28/[address] Omar Johns No prior h/o hepatitis,+??prior tattoos, no prior blood transfusions, no drug use, +??ETOH use 5 drinks/week, and no smoking. No family history of GI/Colon Cancer.?No history of IBD or IBS. NSAID/Blood thinner use:?none?? ROS: ROS Constitutional: Negative for??chills,??fever??and malaise/fatigue.?Negative for [...] trying to go to sz clinic to [facility]). Negative for??dizziness??and headaches. Endo/Heme/Allergies:??Does not bruise/bleed easily. Psychiatric/Behavioral: Positive for??depression??(Slight ). The patient??is not nervous/anxious.?Family in [place].?? Medications: Current Outpatient Medications: ??? azathioprine 50 MG tablet, Take 1 tablet (50 mg total) by mouth daily., Disp: 30 tablet, Rfl: 6 ??? cetirizine 10 MG tablet, Take 10 mg by mouth daily., Disp: , Rfl: ??? desogestrel-ethinyl estradiol (AZURETTE) 0.15-0.02/0.01 MG (/) tablet, Take 1 tablet by mouth daily., Disp: 28 tablet, Rfl: 11 ??? dicyclomine 20 MG tablet, Take 1 tablet (20 mg total) by mouth every 6 (six) hours., Disp: 120 tablet, Rfl: 1 ??? divalproex DR sprinkle 125 MG capsule, Take 3 capsules in the morning and 4 capsules in the evening. (Patient taking differently: Indications: 2 capsules in AM 3 capsules in pm Take 3 capsules inthe morning and 4 capsules in the evening.), Disp: 210 capsule, Rfl: 1 ??? levETIRAcetam 750 MG tablet, TAKE 1 [...] History: Past Medical History: Diagnosis Date ??? Diarrhea ??? Seizures (CMS/HCC) Surgical History: Past Surgical History: Procedure Laterality Date ??? COLONOSCOPY N/A 06/28/2019 COLONOSCOPY WITH BIOPSIES performed by Omar Johns MD at [facility] OR ??? TONSILLECTOMY Social History: Social History Tobacco Use ??? Smoking status: Never Smoker ??? Smokeless tobacco: Never Used Substance Use Topics ??? Alcohol use: Yes Frequency: Monthly or less Drinks per session: 1 or 2 Comment: occasional ??? Drug use: No Family History: No family history on file. PE: Filed Vitals: 07/22/19 1548 BP: 116/76 Pulse: 88 Resp: 18 Temp: 97.6 ??F (36.4 ??C) SpO2: 97% Weight: 130.6 kg (288 lb) Height: 5' 11 (1.803 m) PHYSICAL EXAM Constitutional: She is??oriented to person, place, and time??and well-developed, well-nourished, and in no distress. HENT: Mouth/Throat:??Oropharynx is clear and moist. Eyes:??No scleral icterus. Cardiovascular:??Normal rate,??regular rhythm??and normal heart sounds.?? No murmur??heard. Pulmonary/Chest:??Breath sounds normal. No??respiratory distress. Abdominal:??Soft.??Bowel sounds are normal. She exhibits??no distension??and no mass. There is no??hepatosplenomegaly. There is no tenderness in all quadrants. There is??no rebound??and no guarding. No??hernia.?? Patient has central adiposity, slightly difficult to feel for any organomegaly. ??Patient denies any tenderness with deep palpation of entire abdomen. ??Patient does have a intact clean pannus. ??Residual navel piercing puncture site.?? Musculoskeletal: She exhibits no??edema. Neurological: She is??alert??and oriented to person, place, and time.??Gait??normal. Skin: Skin is??warm??and dry.??No rash??noted. Psychiatric:??Mood??and affect??normal. Nursing note??and vitals??reviewed. Labs Reviewed: Lab Results Component Value Date WBC 13.2 (H) 05/07/2019 RBC 5.0 05/07/2019 HGB 14.5 05/07/2019 HCT 45.0 05/07/2019 RDW 12.6 12/15/2018 PLT 281 05/07/2019 NA 140 05/07/2019 K 4.4 05/07/2019 CL 102 05/07/2019 AGAP 15 05/07/2019 GLU 82 05/07/2019 BUN 12 05/07/2019 CR 0.7 05/07/2019 GFRNON 112 05/07/2019 GFR 136 05/07/2019 CA 9.4 05/07/2019 ALB 4.1 05/07/2019 ALT <5 (L) 05/07/2019 AST 12 05/07/2019 ALKP 53 05/07/2019 Results for PAIGE ZAVALETA ( ) as of 07/22/2019 08:41 Ref. Range 06/19/2019 10:07 CRYPTOSPOR. ANTIGEN: Latest Ref Range: NEGATIVE NEGATIVE GIARDIA ANTIGEN: Latest Ref Range: NEGATIVE NEGATIVE Culture Result: Unknown NOTE: STOOL CULTU... CULTURE STOOL Unknown Rpt Spec. Description Unknown STOOL Special Requests: Unknown NO SPECIAL REQUEST MOLECULAR ASSAY Latest Ref Range: NEGATIVE NEGATIVE O & P Examination Unknown REPORT Results for PAIGE ZAVALETA ( ) as of 07/22/2019 08:41 Ref. Range 06/28/2019 12:54 HAV IgM Latest Ref Range: NON-REACTIVE NON-REACTIVE HB Core IgM Latest Ref Range: NON-REACTIVE NON-REACTIVE HBS Antigen Latest Ref Range: NON-REACTIVE NON-REACTIVE HEP C Ab. Latest Ref Range: NON-REACTIVE NON-REACTIVE Results for PAIGE ZAVALETA ( ) as of 07/22/2019 08:41 Ref. Range 06/28/2019 12:54 NIL (TB) Latest Units: IU/mL 0.02 Results for PAIGE ZAVALETA ( ) as of 07/22/2019 08:41 Ref. Range 06/28/2019 12:54 MITOGEN-NIL Latest Units: IU/mL 5.79 TPMT ACTIVITY Unknown 18 Imagin12/15/2018 CT of abdomen and pelvis with [...] Results Reviewed: 06/28/[address] Johns Findings: Diffuse moderate severe pancolitis likely ulcerative colitis. Extensive biopsies taken. Will initiate prednisone therapy today. Patient will be checked for TP MT level, TB QuantiFERON gold levels as well as a hepatitis B. She should be started on biological agents such as Humira plus immunomodulators. We will need to see her back in the office. ?? Plan: Await biopsies. Start prednisone 40 mg daily to taper over a month. She will likely benefit from Humira plus immunosuppressant. MICROSCOPIC DIAGNOSIS: I. Random biopsies from right colon: - Diffuse active colitis with cryptitis and crypt architecture distortion. - Ulceration of the mucosa. ?? II. Random biopsies from transverse colon: - Diffuse active colitis with cryptitis, ulceration, and distortion of crypt architecture. III. Random biopsies from left colon: - Diffuse active colitis with cryptitis, crypt abscesses, distortion of architecture of the crypts (ulcerative colitis). ?? IV. Random biopsies from rectum: - Diffuse active colitis with cryptitis, ulceration, areas granulation tissue (specimen is consistent with ulcerative colitis). Diagnoses/Impression: Ulcerative pancolitis without complication (cms/hcc) (primary encounter diagnosis) Generalized abdominal pain 1.??Ulcerative pancolitis: Moderate to severe pancolitis endoscopically. Diffuse active colitis with cryptitis, ulceration, areas granulation tissue (specimen is consistent with ulcerative colitis). Normal range TPMT level, - TB QuantiFERON gold levels,- hepatitis panel. Prednisone taper was initiated will initiate 10 mg x 2 weeks to follow 5 mg x 2 weeks then discontinue. 07/10/2019 Azathiaprine 5 0 mg daily started but reluctant to start Humira or other Biologics. Needs to be started on biological agents such as Humira plus immunomodulators. Reviewed with pt the side effects, need to avoid , and provided patient information on Humira and Entyvio, and Xeljanz. Patient assures me shewill make a decision within 1 week. Patient is well controlled at this time on corticosteroids and I muran 50 mg daily. Noting 1 loose bowel movement daily and rare diarrhea if she eats a lot of roughage in her diet. No blood or mucus in stool and no nocturnal defecations. Patient denies any weight loss, dizziness, or fatigue. ??Keppra is compatible with proposed agents.Informed patient to avoid sick contacts and use proper hygiene. ?? 2. Generalized abdominal pain: Has resolved completely with steroids and Imuran therapy at this point. 3. Comorbid Conditions:??Seizures on Keppra Recommendations and Plan: ?? Discussed initiation of the Humira Complete Ambassador to assist pt support with questions, insurance and pen disposal information. ?? Suggested Humira citrate-free 160 mg Subcutaneous day 1, 80 mg subcutaneous day 15, 40 mg day 29then every other week thereafter. Also discussed other options of IV infusions with or orally with Xeljanz twice daily. Patient initially notes that she would rather use Xeljanz however uncertain with twice daily compliance. Discussed ramifications of not treating the UC condition aggressively verylikely would result in long-term effects as well as flares. Patient would like some time to think about her options I did inform her that with this tapering down on the prednisone she is more prone to a flare without some type of biologic agent initiated soon. Patient verbalizes understanding of this and will let me know what she decides. ?? Continue on Azothiaprine 50 mg daily with the Humira use. ?? LFTs and CBC every week x 4, then every 2 weeks x 4 then monthly ?? Continue immunizations from PCP for hepatitis B. ?? Follow low residue diet and provided pt with diet and nutrition with IBD, Managing flares, and UC information booklets from Crohns [employer] Col[employer]. ?? Repeat colonoscopy in 3 to 6 months for mucosal healing. ?? All questions answered ?? Follow-up as soon as possible via phone or office visit with her decision on biologic treatment. Orders placed this encounter: Orders Placed This Encounter ??? HEPATIC FUNCTION PANEL ??? CBC W/DIFF AUTOMATED ??? predniSONE 5 mg tablet Seble Bliss NP 07/22/2019 TBAND SHAPER documented in this encounter Plan of Treatment Upcoming Encounters Date Type Department Care Team (Late st Contact Info) Description 08/21/2024 4:00 PM CDT Office Visit [facility] Family Medicine - [place] [phone] Charla Campos PA-C [address] [place] [address] [phone] documented as of this encounter Results * (ABNORMAL) CBC W/DIFF AUTOMATED (07/23/2019 4:45 PM SWEATBAND SHAPER) WBC 14.5(H) 4.5 - 11.0 x10'3/uL 07/23/2019 5:22 PM SWEATBAND SHAPER [facility] RBC 4.76 4.20 - 5.40 x10'6/uL 07/23/2019 5:22 PM SWEATBAND SHAPER [facility] HGB 13.5 12.0 - 16.0 G/DL 07/23/2019 5:22 PM [facility] HCT 41.5 38.0 - 48.0 % 07/23/2019 5:22 PM [facility] MCV 87.2 81.0 - 99.0 FL 07/23/2019 5:22 PM [facility] MCH 28.4 27.0 - 31.0 PG 07/23/2019 5:22 PM [facility] MCHC 32.5 32.0 - 36.0 G/DL 07/23/2019 5:22 PM [facility] RDW 13.3 11.5 - 14.5 % 07/23/2019 5:22 PM [facility] PLT 271 130 - 400 x10'3/uL 07/23/2019 5:22 PM [facility] MPV 9.8 9.3 - 12.2 FL 07/23/2019 5:22 PM [facility] DIFFERENTIAL TYPE AUTOMATED DIFFERENTIAL 07/23/2019 5:22 PM [facility] NEUTROPHILS % 57.0 % 07/23/2019 5:22 PM [facility] LYMPHOCYTES % 28.8 % 07/23/2019 5:22 PM [facility] MONOCYTES % 9.0 % 07/23/2019 5:22 PM [facility] EOSINOPHILS 3.9 % 07/23/2019 5:22 PM [facility] BASOPHILS 0.7 % 07/23/2019 5:22 PM [facility] IMMATURE GRANS % 0.6 % 07/23/19 20 5:22 PM [facility] ABS. NEUTROPHILS TOTAL 8.27(H) 1.80 - 7.70 x10'3/uL 07/23/2019 5:22 PM [facility] ABS. LYMPHOCYTES 4.18 1.00 - 4.80 x10'3/uL 07/23/2019 5:22 PM SWEATBAND SHAPER [facility] ABS. MONOCYTES 1.30(H) 0.24 - 0.86 x10'3/uL 07/23/2019 5:22 PM SWEATBAND SHAPER [facility] ABS. EOSINOPHILS 0.56(H) 0.04 - 0.36 x10'3/uL 07/23/2019 5:22 PM SWEATBAND SHAPER [facility] ABS. BASOPHILS 0.10(H) 0.01 - 0.08 x10'3/uL 07/23/2019 5:22 PM SWEATBAND SHAPER [facility] ABS. IMMATURE GRANULOCYTES 0.09 0.00 - 0.49 x10'3/uL 07/23/2019 5:22 PM SWEATBAND SHAPER [facility] 07/23/2019 4:45 PM SWEATBAND SHAPER us Seble Bliss NP LABORATORY Final Result [facility] [address] [place] [address], * (ABNORMAL) HEPATIC FUNCTION PANEL (07/23/2019 4:45 PM SWEATBAND SHAPER) TOTAL PROTEIN S/P/B 7.8 6.4 - 8.2 G/DL 07/23/2019 5:49 PM SWEATBAND SHAPER [facility] ALBUMIN S/P/B 3.6 3.4 - 5.0 G/DL 07/23/2019 5:49 PM SWEATBAND SHAPER [facility] BILIRUBIN TOTAL S/P/B 0.3 0.2 - 1.2 MG/DL 07/23/2019 5:49 PM SWEATBAND SHAPER [facility] BILIRUBIN DIRECT S/P/B <0.1 0.0 - 0.20 MG/DL 07/23/2019 5:49 PM SWEATBAND SHAPER [facility] BILIRUBIN INDIRECT S/P/B NOT CALCULATED 0.0 - 0.9 MG/DL 07/23/2019 5:49 PM SWEATBAND SHAPER [facility] ALKALINE PHOSPHATASE S/P/B 74 50 - 136 U/L 07/23/2019 5:49 PM SWEATBAND SHAPER [facility] AST 13(L) 15 - 37 U/L 07/23/2019 5:49 PM SWEATBAND SHAPER [facility] ALT 14 14 - 55 U/L 07/23/2019 5:49 PM SWEATBAND SHAPER [facility] A/G RATIO 0.9(L) 1.0 - 2.0 RATIO 07/23/2019 5:49 PM [facility] 07/23/2019 4:45 PM SWEATBAND SHAPER Seble Bliss NP LABORATORY Final Result [facility] [address] [place] [address], [place] [phone] documented in this encounter Visit Diagnoses Diagnosis Ulcerative pancolitis without complication (CMS/HCC HHS/HCC)- Primary documented in this encounter
--- OUTSIDE RECORDS SUMMARY | 2024-06-08 07:56 | XMS_ITS | Encounter Summary ---
Author Organization [facility] Address [address] [place] [address]. [place], [place] [address] [place] [address] Care Team Providers Care Interlocking Machine Operator Name Role Phone Unavailable Primary Care Provider Unavailabl e Reason for Visit * Reason Onset Date Comments Medication 08/06/2019 Encounter Details Date Type Department Care Team (Late st Contact Info) Description 08/06/2019 Telephone [facility] Multispecialty Care - [facility] [address] [facility], [address] [place] [address] Omar Johns MD 3 [facility] [address] [place] [address] Medication Social History Tobacco Use Types Packs/Day [...] encounter Progress Notes * Xochitl Escobedo - 08/30/2019 8:38 AM CDT Spoke with patient Vj questions answered. * Xochitl Escobedo - 08/29/2019 4:27 PM CDT Spoke with patient she was informed that patient I will check with her pharmacy tomorrow and give her a call. * Tamara Potts - 08/29/2019 4:20 PM CDT Pt called and said she spoke to her pharmacy about her humira script and it was a different dosage and amount and is wondering why. Please call her to discuss. * Seble Ratliff NP - 08/14/2019 4:39 PM CDT Called pt and offered to see her tomorrow for instructions She notes she works 8-5 and would likelynot be able to be late for work. She notes Vj was not sure when they could get out her home duethe [place] [facility]. She notes she does not have any fevers, upper respiratory symptoms, or any sick contacts. Patient will give us a call tomorrow after she talks with the Humira efficacy group. Patient will then set up appointment accordingly. * Xochitl Escobedo - 08/14/2019 4:25 PM CDT Should patient be scheduled for an appt with Dr. Johns? * Amanda Villegas - 08/14/2019 9:28 AM CDT Patient was calling as she doesn't know how to use the Humira and was wondering if she could just come in or does she need an appt. Vj said it would be a few weeks before they could come show her. Please follow up with patient @[phone] * Seble Ratliff NP - 08/06/2019 1:16 PM CDTAddended by: SEBLE RATLIFF on: 08/06/2019 01:16 PM Modules accepted: Orders * Xochitl Escobedo - 08/06/2019 10:39 AM CDT [facility] need a eprescription for the patient's Humira starter kit. They already have the prescription for the maintenance dose. documented in this encounter Plan of Treatment Upcoming Encounters Date Type Department Care Team (Late st Contact Info) Description 08/21/2024 4:00 PM CDT Office Visit [facility] Family Medicine - [place] [phone] Charla Campos PASariah [address] [place] [phone] documented as of this encounter Visit Diagnoses Diagnosis Ulcerative pancolitis without complication (CMS/HCC HHS/HCC) documented in this encounter
--- OUTSIDE RECORDS SUMMARY | 2024-06-08 07:56 | XMS_ITS | Encounter Summary ---
Author Organization [facility] Address [facility] [place] [address] [place] [address] Care Team Providers Care Wood Carver Name Role Phone Unavailable Primary Care Provider Unavailabl e Encounter Details Date Type Department Care Team (Latest Contact Info) Description 07/22/2019 Travel Social History Tobacco Use Types Packs/Day [...] Description 08/21/2024 4:00 PM CDT Office Visit [facility] Family Medicine - [place] [address] [place] [address] Charla Campos PA-C [address] [place] [address] documented as of this encounter Visit Diagnoses Not on filedocumented in this encounter
--- OUTSIDE RECORDS SUMMARY | 2024-06-08 07:56 | XMS_ITS | Encounter Summary ---
Author Organization [facility] Address [address] [place] [address]. [place] [address] [place] [address] Care Team Providers Care Satellite Manager Name Role Phone Unavailable Primary Care Provider Unavailabl e Reason for Visit * Reason Onset Date Comments Information 07/10/2019 Encounter Details Date Type Department Care Team (Late st Contact Info) Description 07/10/2019 Telephone [facility] Multispecialty Care - [facility] [address] [facility], [address] [place] [phone] Seble Bliss NP 3 [facility]. [address] [place] [address] Information Social History Tobacco Use Types Packs/Day [...] Progress Notes * Seble Bliss NP - 07/10/2019 9:11 AM CST Call patient to inform her that her lab work for hepatitis A, B, C was all nonreactive as well as negative TB test and normal range on the TM PT labs prior to starting patient on azathioprine. I did discuss azathioprine 50 mg daily dosing to be started at this time patient was comfortable with thisas she is. Patient is currently still on prednisone 40 mg daily as she was having difficulty figuring out how to cut her prednisone 20 mg in half. We did discuss options for this and she notes she will start taking the 30 mg as I had advised 2 days ago. I would like patient to continue out this week on 30 mg and next week start on 20 mg of prednisone. Encourage patient to reach out to PCP Dr. Payne and ask if he could order her hepatitis A and B immunizations even possibly pneumonia vaccines prior to initiating biologic agent like Humira. I have an appointment with patient in the next 2 weeks I did offer patient to come in sooner but she said this appointment will be best. Patient notes she is having some small diarrhea bouts without blood today. Patient notes that her stomach just doesnot feel very well. Patient will call for any ongoing concerns or questions. INSPECTOR documented in this encounter Plan of Treatment Upcoming Encounters Date Type Department Care Team (Late st Contact Info) Description 08/21/2024 4:00 PM CDT Office Visit [facility] Family Medicine - [place] [address] [place] [phone] Charla Campos PA-C [address] [place] [address] documented as of this encounter Visit Diagnoses Diagnosis Ulcerative pancolitis without complication (CMS/HCC HHS/HCC)- Primary documented in this encounter
--- OUTSIDE RECORDS SUMMARY | 2024-06-08 07:56 | XMS_ITS | Encounter Summary ---
Author Organization [facility] Address [address] [place] [address]. [place] [address] [place] [address] Care Team Providers Care Stile Ripsaw Operator Name Role Phone Unavailable Primary Care Provider Unavailabl e Encounter Details Date Type Department Care Team (Latest Contact Info) Description 08/09/2019 1:55 PM CDT - 08/09/2019 11:59 PM CDT Hospital Encounter [facility] [place], [place] [address] Seble Bliss, JORI 3 [facility]. [address] [place], [place] [address] Discharge Disposition: Home or Self Care (Routine [...] MG/0.4ML pen-injector kitIndications:Ulcer ative pancolitis without complication ([facility]/HCC [facility]) Citrate free formula. Inject 40 mg (0.4 [...] Progress Notes * Seble Bliss NP - 08/09/2019 5:24 PM CDT Pt notes she has not started the Humira yet. She just arranged for shipping of the medication from [facility] pharmacy. Notes it should be arrived on Monday next week. Pt notes this is very frustrated about the process with the pharmacy. She notes she has not arranged a date with the Humira advocacy nurse. She will talk to them on Monday. Pt notes she has been feeling ok. Informed pt to continue to do her CBC every week for 4 weeks after starting the Humira. Pt to call for any concerns on the administration of medication. documented in this encounter Plan of Treatment Upcoming Encounters Date Type Department Care Team (Late st Contact Info) Description 08/21/2024 4:00 PM CDT Office Visit [facility] Family Medicine - [place] [phone] Charla Campos PA-C [address] [place] [address] documented as of this encounter Procedures Procedure Name Priority Date/Time Associated Diagnosis Comments CBC W/DIFF AUTOMATED Routine 08/09/2019 2:04 PM CDT Ulcerative pancolitis without complication ([facility]/HCC [facility]) documented in this encounter Results * (ABNORMAL) CBC W/DIFF AUTOMATED (08/09/2019 2:04 PM CDT) WBC 12.0(H) 4.5 - 11.0 x10'3/uL 08/09/2019 2:24 PM CDT [facility] RBC 4.75 4.20 - 5.40 x10'6/uL 08/09/2019 2:24 PM CDT [facility] HGB 13.6 12.0 - 16.0 G/DL 08/09/2019 2:24 PM CDT [facility] HCT 41.2 38.0 - 48.0 % 08/09/2019 2:24 PM CDT [facility] MCV 86.7 81.0 - 99.0 FL 08/09/2019 2:24 PM CDT [facility] MCH 28.6 27.0 - 31.0 PG 08/09/2019 2:24 PM CDT [facility] MCHC 33.0 32.0 - 36.0 G/DL 08/09/2019 2:24 PM CDT [facility] RDW 13.1 11.5 - 14.5 % 08/09/2019 2:24 PM CDT [facility] PLT 299 130 - 400 x10'3/uL 08/09/2019 2:24 PM CDT [facility] MPV 9.4 9.3 - 12.2 FL 08/09/2019 2:24 PM CDT [facility] DIFFERENTIAL TYPE AUTOMATED DIFFERENTIAL 08/09/2019 2:24 PM CDT [facility] NEUTROPHILS % 60.9 % 08/09/2019 2:24 PM CDT [facility] LYMPHOCYTES % 27.8 % 08/09/2019 2:24 PM CDT [facility] MONOCYTES % 8.8 % 08/09/2019 2:24 PM CDT [facility] EOSINOPHILS 1.5 % 08/09/2019 2:24 PM CDT [facility] BASOPHILS 0.6 % 08/09/2019 2:24 PM CDT [facility] IMMATURE GRANS % 0.4 % 08/09/19 20 2:24 PM CDT [facility] ABS. NEUTROPHILS TOTAL 7.29 1.80 - 7.70 x10'3/uL 08/09/2019 2:24 PM CDT [facility] ABS. LYMPHOCYTES 3.33 1.00 - 4.80 x10'3/uL 08/09/2019 2:24 PM CDT [facility] ABS. MONOCYTES 1.06(H) 0.24 - 0.86 x10'3/uL 08/09/2019 2:24 PM CDT [facility] ABS. EOSINOPHILS 0.18 0.04 - 0.36 x10'3/uL 08/09/2019 2:24 PM CDT [facility] ABS. BASOPHILS 0.07 0.01 - 0.08 x10'3/uL 08/09/2019 2:24 PM CDT [facility] ABS. IMMATURE GRANULOCYTES 0.05 0.00 - 0.49 x10'3/uL 08/09/2019 2:24 PM CDT [facility] 08/09/2019 2:04 PM CDT Seble Bliss NP LABORATORY Final Result [facility] [address] [place] [address], [place] [phone] documented in this encounter Visit Diagnoses Diagnosis Ulcerative pancolitis without complication (CMS/HCC HHS/HCC) documented in this encounter
--- OUTSIDE RECORDS SUMMARY | 2024-06-08 07:56 | XMS_ITS | Encounter Summary ---
Author Organization [facility] Address [facility] [facility] [place] [address] [place] [address] Care Team Providers Care Water And Fire Technician Name Role Phone Unavailable Primary Care Provider Unavailabl e Encounter Details Date Type Department Care Team (Latest Contact Info) Description 08/07/2019 Scan HEALTH INFO SRVCS Scanned, Documents Social [...] Description 08/21/2024 4:00 PM CDT Office Visit [facility] Family Medicine - [place] [address] [place] [phone] Charla Campos PA-C [address] [place] [address] documented as of this encounter Visit Diagnoses Not on filedocumented in this encounter
--- OUTSIDE RECORDS SUMMARY | 2024-06-08 07:56 | XMS_ITS | Encounter Summary ---
Author Organization [facility] Address [address] [place] [address]. [place], [place] [address] [place] [address] Care Team Providers Care Subway Train Driver Name Role Phone Unavailable Primary Care Provider Unavailabl e Reason for Visit * Auth/Cert Specialty Diagnoses / Procedures Referred By Yodit kenney Referred To Contact Diagnoses R19.7, K92.1 Procedures COLONOSCOPY DIAGNOSTIC WITH/WITHOUT SPECIMEN BRUSH/WASH Referral ID Status Reason Start Date Expiration Date Visits Re quested Visits Authorized [id number] 1 1 Encounter Details Date Type Department Care Team (Late st Contact Info) Description 06/28/2019 11:03 AM FIBER MACHINE TENDER Anesthesia Event [facility] [address] [place] [address] Dianna Major CRNA [address] [place] [address] Anesthesia Record Procedure Summary Procedure Name Responsible Anesthesiologist Anesthesia Start Time Anesthesia Stop Time COLONOSCOPY WITH BIOPSIES Dianna Major CRNA 06/28/19 1103 06/28/19 1129 Events Date Time Event Comment 06/28/2019 0956 AN CLINICAL PROFESSOR Prepped 0956 AN Anesthesia Prepped 1103 An Start Patient ID and consent checked and patient reassessed. 1103 An Start Data 1103 Nasal Cannula Applied 1103 Anesthesia Ready 1106 1129 Nasal Cannula Removed 1129 an stop data 1129 An Stop 1129 Post Anesthetic Care Handoff I completed my handoff to the receiving nurse during which we: 1. Identified the patient 2. Identified the responsible provider 3. Reviewed the pertinent medical history 4. Discussed the surgical course 5. Reviewed intra-op anesthesia management and issues during anesthesia 6. Set expectations for post-procedure period 7. Allowed opportunity for questions and acknowledgement of understanding. Meds Name Total midazolam 2 mg/2 mL injection 2 mg lidocaine (PF) (XYLOCAINE) 1% injection 50 mg propofol (DIPRIVAN) 200 mg/20 mL injecti on 400 mg lactated ringers infusion 800 mL * Agents Name O2 N2O * Blood No blood administrations on file. Lines, Drains, and Airways Type Details Placement Removal Peripheral IV Placement Date: 05/31 06/17; Placement Time: 950; Placed Outside of This Facility?: No; Size: 20 G; Orientation: Right; Location: Forearm; Site Prep: Chlorhexidine; Insertion attempts: 2; Patient Tolerance: Tolerated well; Removal Date: 06/28/19; Removal Time: 12106/28/19 0951 by Humera Mcgee RN 06/28/19 121 by Gissel oMy RN documented in this encounter Social History [...] on file documented as of this encounter OR Notes * Anesthesia Postprocedure Evaluation - Dianna Major CRNA - 06/28/2019 11:29 AM CST Anesthesia Post-op Note Paige Zavaleta Procedure(s): COLONOSCOPY WITH BIOPSIES (N/A ) Anesthesia type: MAC Vitals: 06/28/19944 BP: 127/79 Vitals: 06/28/19944 Pulse: 99 Vitals: 06/28/19944 Resp: 16 Vitals: 06/28/19944 Temp: 35.8 ??C Vitals: 06/28/19944 SpO2: 96% Patient Location: Phase II/Outpatient Level of Consciousness: awake Pain Management: adequate analgesia Airway Patency: patent Respiratory Status: acceptable Cardiovascular Status: acceptable Post-Op Nausea: none Postoperative Hydration: euvolemic Complications: no anesthesia complication R MACHINE TENDER * Anesthesia Preprocedure Evaluation - Dianna Major CRNA - 06/24/2019 10:46 AM CST Anesthesia ROS/MED History Reviewed: Patient summary , Nursing notes , Family history anesthesia, Anesthesia history , Medications Pre-Anesthetic State: alert, awake and responds appropriately Pulmonary Cardiovascular neg cardio ROS Exercise tolerance:good Neuro/Psych (+) seizures GI/Hepatic/Renal Endo/Other (+) obese Physical Evaluation Airway Mallampati: II TM Distance: >3 FB Neck ROM: normal Dental No notable dental history Pulmonary Breath sounds clear to auscultation Cardiovascular Rhythm: regular Rate: normal Anesthesia Plan ASA 2 Intravenous Induction Anesthesia type: MAC Informed Consent Anesthetic plan and risks discussed with patient of whom consent was obtained. Use of blood products discussed with patient of whom consent was obtained. . Cosigned by Omar Johns MD at 07/03/2019 10:39 AM FIBER MACHINE TENDER R MACHINE TENDER R MACHINE TENDER Associated attestation - Omar Johns MD - 07/03/2019 10:39 AM FIBER MACHINE TENDER I am certifying my agreement with the anesthesia plan of care and will be supervising the administration of anesthesia. documented in this encounter Plan of Treatment Upcoming Encounters Date Type Department Care Team (Late st Contact Info) Description 08/21/2024 4:00 PM CDT Office Visit [facility] Family Medicine - [place] [address] [place] [phone] Charla Campos PA-C [address] [place] [address] documented as of this encounter Visit Diagnoses Not on filedocumented in this encounter Administered Medications Inactive Administered Medications - up to 3 most recent administrations Medication Order MAR Action Action Date Dose Rate Site lidocaine (PF) (XYLOCAINE) 1 % injection Intravenous, PRN, Starting on Mon06/28/19 at 1103, Until Mon06/28/19 at 1129, Anesthesia Intra-Op Given 06/28/2019 11:03 AM FIBER MACHINE TENDER 50 mg midazolam (VERSED) injection Intravenous, PRN, Starting on Mon06/28/19 at 1104, Until Mon06/28/19 at 1129, Anesthesia Intra-Op Given 06/28/2019 11:04 AM FIBER MACHINE TENDER 2 mg propofol (DIPRIVAN) IV bolus Intravenous, PRN, Starting on Mon06/28/19 at 1105, Until Mon06/28/19 at 1129, Anesthesia Intra-Op Given 06/28/2019 11:24 AM FIBER MACHINE TENDER 50 mg Given 06/28/2019 11:21 AM FIBER MACHINE TENDER 50 mg Given 06/28/2019 11:18 AM FIBER MACHINE TENDER 50 mg documented in this encounter
--- OUTSIDE RECORDS SUMMARY | 2024-06-08 07:56 | XMS_ITS | Encounter Summary ---
Author Organization [facility] Address [facility] [place] [address] [place] [address] Care Team Providers Care Bureau Director Name Role Phone Unavailable Primary Care Provider Unavailabl e Encounter Details Date Type Department Care Team (Latest Contact Info) Description 07/23/2019 Travel Social History Tobacco Use Types Packs/Day [...] [facility] Family Medicine - [place] [address] [place] [address] Charla Campos PA-C [address] [place] [address] documented as of this encounter Visit Diagnoses Not on filedocumented in this encounter
--- OUTSIDE RECORDS SUMMARY | 2024-06-08 07:56 | XMS_ITS | Encounter Summary ---
Author Organization [facility] Address [address] [place] [address]. [place] [address] [place] [address] Care Team Providers Care Nuclear Medicine Technologist Name Role Phone Unavailable Primary Care Provider Unavailabl e Reason for Visit * Reason Onset Date Comments Medication 07/24/2019 Humira Encounter Details Date Type Department Care Team (Late st Contact Info) Description 07/24/2019 Telephone [facility] Medical [facility] Multispecialty Care - [facility] [address] [facility], [address] [place] [address] Seble Ratliff NP [address] [facility] [address] [place] [address] Medication (Humira) Social History Tobacco Use Types Packs/Day Years [...] encounter Progress Notes * Xochitl Escobedo - 07/31/2019 1:55 PM CST Vic Mcginnis at [facility] Humira has been approved good from 07/01/2019- 10/29/2019. Patient informed and Margott informed R RECLAMATION SYSTEMS OPERATOR * Bhakti Alvarez - 07/31/2019 1:19 PM CST Patient called in, waiting on authorization for the medication Humira. Margott has not received authorization. Patient said alfredo has faxed over the preC4X Discovery 4 times to us and they are not getting a response from us. Please follow up with patient and margott. R RECLAMATION SYSTEMS OPERATOR * Xochitl Escobedo - 07/26/2019 1:56 PM CST Spoke with pharmacist she was told that we are working on trying to get the medication approved forthe patient. R RECLAMATION SYSTEMS OPERATOR R RECLAMATION SYSTEMS OPERATOR * Amanda Villegas - 07/26/2019 10:43 AM CST [facility] called as in order to fill Humria prescription they need an auth, they sent over paperwork. Please follow up with Griselda at [facility] @[phone] R RECLAMATION SYSTEMS OPERATOR * Seble Ratliff NP - 07/24/2019 3:31 PM CSTAddended by: SEBLE RATLIFF on: 07/24/2019 03:31 PM Modules accepted: Orders R RECLAMATION SYSTEMS OPERATOR * Seble Ratliff NP - 07/24/2019 3:23 PM CSTAddended by: SEBLE RATLIFF on: 07/24/2019 03:23 PM Modules accepted: Orders R RECLAMATION SYSTEMS OPERATOR * Seble Ratliff NP - 07/24/2019 3:18 PM CST Called patient and she notes that she would like to have the prescription sent to [facility].Patient does have a pharmacy discount card for which I provided her during her visit with me. Patient is agreeable to the ambassador program and I will fax this form over for patient. Informed her that they should be reaching out to her within 24 to 48 hours to assist her in any questions she may have. I informed patient of her lab work results. She is aware that her WBCs remain elevated which reinforces the need for higher level of Biologics to help control inflammation. I did call and speak with the pharmacist and she instructed on how to send over both the induction as well as the maintenance dosing. Informed pt to repeat CBC in 1 week for next 2 weeks. R RECLAMATION SYSTEMS OPERATOR R RECLAMATION SYSTEMS OPERATOR * Alee Hein - 07/24/2019 7:43 AM CST Pt called saying that she has the Humira (medication) savings card and needs the prescription sent to the pharmacy. She said once Humira is sent to the pharmacy and run it through her insurance and then use the savings card. She said after all that she would know how much she actually be paying. She asked to please give her a call once we send the medication to the pharmacy. R RECLAMATION SYSTEMS OPERATOR documented in this encounter Plan of Treatment Upcoming Encounters Date Type Department Care Team (Late st Contact Info) Description 08/21/2024 4:00 PM CDT Office Visit [facility] Medical [facility] Family Medicine - [place] [address] [place] [phone] Charla Campos PA-C [address] [place] [address] documented as of this encounter Results * (ABNORMAL) CBC W/DIFF AUTOMATED (10/31/2019 3:50 PM CDT) WBC 10.2 4.5 - 11.0 x10'3/uL 10/31/2019 4:[address] [facility] RBC 4.92 4.20 - 5.40 x10'6/uL 10/31/2019 4:[address] [facility] HGB 14.0 12.0 - 16.0 G/DL 10/31/2019 4:[address] [facility] HCT 41.5 38.0 - 48.0 % 10/31/2019 4:[address] [facility] MCV 84.3 81.0 - 99.0 FL 10/31/2019 4:[address] [facility] MCH 28.5 27.0 - 31.0 PG 10/31/2019 4:[address] [facility] MCHC 33.7 32.0 - 36.0 G/DL 10/31/2019 4:[address] [facility] RDW 13.1 11.5 - 14.5 % 10/31/2019 4:[address] [facility] PLT 340 130 - 400 x10'3/uL 10/31/2019 4:[address] [facility] MPV 9.7 9.3 - 12.2 FL 10/31/2019 4:[address] [facility] DIFFERENTIAL TYPE AUTOMATED DIFFERENTIAL 10/31/2019 4:[address] [facility] NEUTROPHILS % 41.1 % 10/31/2019 4:[address] [facility] LYMPHOCYTES % 46.4 % 10/31/2019 4:[address] [facility] MONOCYTES % 9.5 % 10/31/2019 4:[address] [facility] EOSINOPHILS 2.0 % 10/31/2019 4:[address] [facility] BASOPHILS 0.8 % 10/31/2019 4:[address] [facility] IMMATURE GRANS % 0.2 % 10/31/19 20 4:[address] [facility] ABS. NEUTROPHILS TOTAL 4.19 1.80 - 7.70 x10'3/uL 10/31/2019 4:[address] [facility] ABS. LYMPHOCYTES 4.72 1.00 - 4.80 x10'3/uL 10/31/2019 4:[address] [facility] ABS. MONOCYTES 0.97(H) 0.24 - 0.86 x10'3/uL 10/31/2019 4:[address] [facility] ABS. EOSINOPHILS 0.20 0.04 - 0.36 x10'3/uL 10/31/2019 4:[address] [facility] ABS. BASOPHILS 0.08 0.01 - 0.08 x10'3/uL 10/31/2019 4:[address] [facility] ABS. IMMATURE GRANULOCYTES 0.02 0.00 - 0.49 x10'3/uL 10/31/2019 4:[address] [facility] 10/31/2019 3:50 PM CDT Seble Ratliff NP LABORATORY Final Result [facility] [address] [place] [address], [place] [phone] * (ABNORMAL) CBC W/DIFF AUTOMATED (08/09/2019 2:04 PM CDT) WBC 12.0(H) 4.5 - 11.0 x10'3/uL 08/09/2019 2:[address] [facility] RBC 4.75 4.20 - 5.40 x10'6/uL 08/09/2019 2:[address] [facility] HGB 13.6 12.0 - 16.0 G/DL 08/09/2019 2:[address] [facility] HCT 41.2 38.0 - 48.0 % 08/09/2019 2:[address] [facility] MCV 86.7 81.0 - 99.0 FL 08/09/2019 2:[address] [facility] MCH 28.6 27.0 - 31.0 PG 08/09/2019 2:[address] [facility] MCHC 33.0 32.0 - 36.0 G/DL 08/09/2019 2:[address] [facility] RDW 13.1 11.5 - 14.5 % 08/09/2019 2:[address] [facility] PLT 299 130 - 400 x10'3/uL 08/09/2019 2:[address] [facility] MPV 9.4 9.3 - 12.2 FL 08/09/2019 2:[address] [facility] DIFFERENTIAL TYPE AUTOMATED DIFFERENTIAL 08/09/2019 2:[address] [facility] NEUTROPHILS % 60.9 % 08/09/2019 2:[address] [facility] LYMPHOCYTES % 27.8 % 08/09/2019 2:[address] [facility] MONOCYTES % 8.8 % 08/09/2019 2:[address] [facility] EOSINOPHILS 1.5 % 08/09/2019 2:[address] [facility] BASOPHILS 0.6 % 08/09/2019 2:[address] [facility] IMMATURE GRANS % 0.4 % 08/09/19 20 2:[address] [facility] ABS. NEUTROPHILS TOTAL 7.29 1.80 - 7.70 x10'3/uL 08/09/2019 2:[address] [facility] ABS. LYMPHOCYTES 3.33 1.00 - 4.80 x10'3/uL 08/09/2019 2:[address] [facility] ABS. MONOCYTES 1.06(H) 0.24 - 0.86 x10'3/uL 08/09/2019 2:[address] [facility] ABS. EOSINOPHILS 0.18 0.04 - 0.36 x10'3/uL 08/09/2019 2:[address] [facility] ABS. BASOPHILS 0.07 0.01 - 0.08 x10'3/uL 08/09/2019 2:[address] [facility] ABS. IMMATURE GRANULOCYTES 0.05 0.00 - 0.49 x10'3/uL 08/09/2019 2:[address] [facility] 08/09/2019 2:04 PM CDT Seble Ratliff NP LABORATORY Final Result [facility] [address] [place] [address], [place] [phone] documented in this encounter Visit Diagnoses Diagnosis Ulcerative pancolitis without complication (CMS/HCC HHS/HCC)- Primary documented in this encounter
--- OUTSIDE RECORDS SUMMARY | 2024-06-08 07:56 | XMS_ITS | Encounter Summary ---
Author Organization [facility] Address [address] [place] [address]. [place], [place] [id number] [place] [address] Care Team Providers Care Procedure Manager Name Role Phone Unavailable Primary Care Provider Unavailabl e Reason for Visit * Reason Onset Date Comments Medication Request 08/02/2019 Encounter Details Date Type Department Care Team (Late st Contact Info) Description 08/02/2019 Telephone [facility] Multispecialty Care - [facility] [address] [facility], [address] [place] [address] Omar Johns MD 3 [facility] [address] [place] [address] Medication Request Social History Tobacco Use Types [...] encounter Progress Notes * Xochitl Escobedo - 08/05/2019 1:39 PM CDT Spoke with patient she was informed that her prescription was faxed to [facility] * Tamara Potts - 08/05/2019 11:54 AM CDT [facility] said [facility]/called her that they need us to send them a script for her humira. She is frustrated and confused at how complicated this process has been and all the going back and forth and doesn't understand why everything is happening the way it is and would like to talk to someone further about it. Please call her to discuss. * Xochitl Escobedo - 08/02/2019 11:38 AM CST [facility] would like an eprescrition be sent over on the Humira. L COLLECTOR * Omar Johns MD - 08/02/2019 11:09 AM CST yes L COLLECTOR * Xochitl Escobedo - 08/02/2019 8:41 AM CST Spoke with Garcia at [facility] patient's Humira prescriptions will need to be sent to [facility] mail order pharmacy. [facility] prescription [facility]. L COLLECTOR documented in this encounter Plan of Treatment Upcoming Encounters Date Type Department Care Team (Late st Contact Info) Description 08/21/2024 4:00 PM CDT Office Visit [facility] Medical [facility] Family Medicine - [place] [address] [place] [phone] Charla Campos PA-C [address] [facility] [place] [address] documented as of this encounter Visit Diagnoses Not on filedocumented in this encounter
--- OUTSIDE RECORDS SUMMARY | 2024-06-08 07:56 | XMS_ITS | Encounter Summary ---
Author Organization [facility] Address [facility] [facility] [place] [address] [place] [address] Care Team Providers Care Dairy Farmworker Name Role Phone Unavailable Primary Care Provider Unavailabl e Encounter Details Date Type Department Care Team (Latest Contact Info) Description 07/24/2019 Scan HEALTH INFO SRVCS Scanned, Documents Social [...] 08/21/2024 4:00 PM CDT Office Visit [facility] Medical [facility] Family Medicine - [place] [address] [place] [phone] Charla Campos PA-C [address] [place] [address] documented as of this encounter Visit Diagnoses Not on filedocumented in this encounter
--- OUTSIDE RECORDS SUMMARY | 2024-06-08 07:56 | XMS_ITS | Encounter Summary ---
Author Organization [facility] Address [facility] [place] [address] [place] [address] Care Team Providers Care Data Collection Associate Name Role Phone Unavailable Primary Care Provider Unavailabl e Reason for Visit * Auth/Cert Specialty Diagnoses / Procedures Referred By Yodit kenney Referred To Contact Diagnoses R19.7, K92.1 Procedures COLONOSCOPY DIAGNOSTIC WITH/WITHOUT SPECIMEN BRUSH/WASH Referral ID Status Reason Start Date Expiration Date Visits Re quested Visits Authorized [id number] 1 1 Encounter Details Date Type Department Care Team (Latest Contact Info) Description 06/28/2019 8:54 AM CUSTOM CAR BUILDER - 06/28/2019 12:51 PM [facility] [[email or web address] Hospital Encounter [facility] [address] [place] [address] Stoney Johns MD [address] [address] Discharge Disposition: Home or Self Care (Routine [...] Sign Reading Time Taken Comments Blood Pressure 124/88 06/28/2019 11:45 AM CUSTOM CAR BUILDER Pulse 92 06/28/2019 11:45 AM CUSTOM CAR BUILDER Temperature 35.9 ??C (96.6 ??F) 06/28/2019 11:[address] Respiratory Rate 18 06/28/2019 11:45 AM CUSTOM CAR BUILDER Oxygen Saturation 100% 06/28/2019 11:45 AM CUSTOM CAR BUILDER Inhaled Oxygen Concentration - - Weight 131.5 kg (290 lb) 06/21/2019 9:56 AM CUSTOM CAR BUILDER Height 180.3 cm (5' 11 ) 06/21/2019 9:56 AM CUSTOM CAR BUILDER Body Mass Index 40.45 06/21/2019 9:56 AM CUSTOM CAR BUILDER documented in this encounter Discharge Instructions * Discharge Instructions* Stoney Johns MD - 06/28/2019 11:44 AM CUSTOM CAR BUILDER Images from the original note were not included. Patient Education Inflammatory Bowel Disease About this topic Inflammatory bowel disease is also known as IBD. You may have this problem all of your life. You may have swelling and irritation of your digestive tract. This includes your stomach, food pipe or esophagus, and bowels. It is also called your GI or gastrointestinal tract. IBD is a term that is used for all diseases that cause this kind of swelling. These include: ?? Crohn's disease: Swelling of any part of your GI tract ?? Ulcerative colitis: Swelling and tiny open sores in any part of your large bowel or rectum There is no cure for IBD. There are things you can do to help manage the signs. Drugs, changes in lifestyle, and surgery are all ways to help manage or control your signs. What are the causes? There is no known cause for this problem. Crohn's disease and ulcerative colitis tend to run in families. What can make this more likely to happen? ?? Having a family member with IBD ?? Ulcerative colitis is most common between ages 15 and 30 ?? Crohn's disease is most common between 13 and 30 ?? Ulcerative colitis is more common in Caucasians and people of Yazidi descent What are the main signs? ?? People with Crohn's disease or ulcerative colitis may have: ? Belly pain or cramps ? Loose stools or blood in the stool ? Weight loss ? Fever ? Upset stomach or not feeling hungry ? Feeling tired ? Low red blood cells. This is anemia. ? Joint pain ?? People with ulcerative colitis may also have: ? Pain in the rectum ? Urge to have a bowel movement but not able to do so ? Loose stools and belly pain tend to come and go ? Ulcers in the bowels How does the doctor diagnose this health problem? Your doctor will take your history and do an exam. The doctor will focus on your belly area. Your doctor may also do a rectal exam. During a rectal exam, the doctor will put a gloved finger into the rectum to feel for any problems in that area. The doctor may order tests like: ?? Stool sample ?? Blood tests ?? Colonoscopy or sigmoidoscopy ?? Special x-rays ?? CT or MRI scan ?? Capsule endoscopy How does the doctor treat this health problem? Treatment is based on what part of the GI tract is affected, how bad your problems are, and if there are any problems outside the GI tract. The doctor may suggest: ?? Drugs ?? Changes to your diet ?? Surgery What drugs may be needed? The doctor may order drugs to: ?? Control belly muscle spasms ?? Treat loose or hard stools ?? Ease belly pain ?? Fight an infection ?? Suppress the immune system What changes to diet are needed? ?? There is no one best diet for people with IBD. Talk to your doctor or dietitian for a personal diet plan. This can help manage your signs. ?? You should work toward eating a healthy well-balanced diet. ?? Keep a journal or notes of what you eat. Be aware of foods that may increase your signs and avoid them in the future. ?? Eat small meals more often. This may help lower stomach pain and cramping. ?? Drink 6 to 8 glasses of water each day. You are more likely to need extra fluids if you are having stools more often. ?? Your doctor may suggest you eat a low fiber, low residue diet. This means avoiding things like raw fruits, vegetables, seeds, and nuts. ?? Your doctor may also suggest you eat a low fat diet and avoid lactose (milk products) ?? You may also want to avoid food that causes gas like broccoli, beans, nuts, and bran. What problems could happen? ?? Bowel obstruction ?? Fistulas ?? Bleeding ?? Infection ?? Colon cancer ?? Malnutrition ?? Weak bones What can be done to prevent this health problem? There is no known way to cure or prevent IBD. You can stay away from the foods that trigger the signs of your illness. Less stress in your life can prevent flare-ups of IBD. Where can I learn more? FamilyDoctor.org http://familydoctor.org/familydoctor/en/diseases-conditions/wykdgetstljn-zuuur-z isease/symptoms.html National Digestive Diseases Information Clearinghouse http://digestive.niddk.nih.gov/ddiseases/pubs/crohns_ez/index.aspx National Digestive Diseases Information Clearinghouse http://digestive.niddk.nih.gov/ddiseases/pubs/colitis/index.aspx U.S. Department of Health and Human Services Office on Women's Health https://www.womenshealth.gov/publications/our-publications/fact-sheet/inflammato sc-rksty-ojfyprl.html Last Reviewed Date 2016-11-25 Consumer Information Use and Disclaimer This information [...] right for you. Copyright Copyright ?? 2019 [employer], Inc. and its affiliates and/or licensors. All rights reserved. Patient Education Colonoscopy Discharge Instructions About this topic Colonoscopy is done so your doctor can see the inside of your large intestines, also called your colon, and your rectum. It uses a lighted tube called a scope, which has a tiny camera that can be moved through the large intestine. This may be done to: ?? Screen for colon cancer or polyps ?? Look for the source of rectal bleeding ?? Find the cause of changes in your bowel movement ?? Find the cause of belly or rectal pain ?? Check results from other tests ?? Check your response to treatment for other diseases What care is needed at home? ?? Ask your doctor what you need to do when you go home. Make sure you ask questions if you do not understand what the doctor says. This way you will know what you need to do. ?? Rest. Do not drive the rest of the day. Do not sign any important papers or make any important decisions for the next 24 hours. ?? You may feel groggy. Take extra care when moving about. ?? You may have gas or mild cramping. This is normal. ?? A small amount of bleeding may happen during the first few days after your procedure. ?? Start back on your normal diet unless you need some changes in your diet. What follow-up care is needed? ?? Your doctor will talk to you about your test results. Your doctor may ask you to make visits to the office to check on your progress. Be sure to keep these visits. ?? Ask your doctor when you need to have another colonoscopy. The amount of time between tests is based on what was found during this test. People with no polyps may be able to wait 10 years to have another colonoscopy. Other people may need to have this test repeated in 1 year because of the kind of polyps that were found in their colon. Ask your doctor when you need to come back. What drugs may be needed? Ask your doctor what drugs you will need to take. Take your drugs as told by your doctor. Will physical activity be limited? Physical activities may be limited for a short time. Rest after the procedure. You may go back to your normal activities within a day or so. What changes to diet are needed? ?? Drink 6 to 8 glasses of water each day. ?? Eat food rich in fiber like fresh fruits and vegetables. What problems could happen? ?? Tear inside your colon ?? Bleeding can happen up to a few days afterwards When do I need to call the doctor? ?? Fever of 100.4??F (38??C) or higher, chills ?? Bleeding during bowel movements (1 teaspoon (5 mL) or more) or maroon stool ?? Throwing up more than 3 times in the next 48 hours ?? Feeling dizzy ?? Feeling weak ?? Belly pain that is getting worse ?? Not able to have a bowel movement for more than 2 days ?? Hard swollen belly Teach Back: Helping You Understand The Teach Back Method helps you understand the information we are giving you. The idea is simple. After talking with the staff, tell them in your own words what you were just told. This helps to makesure the staff has covered each thing clearly. It also helps to explain things that may have been abit confusing. Before going home, make sure you are able to do these: ?? I can tell you about my procedure. ?? I can tell you what signs are normal after my procedure. ?? I can tell you what I will do if I throw up more than 3 times in the next 48 hours or I have more belly pain. Where can I learn more? [employer] Association http://www.gastro.org/info_for_patients/jgzlhiwfkdd-696-sipw-dr-s-pfgmfgsulhd [employer] Society for Gastrointestinal Endoscopy http://www.asge.org/patients/patients.aspx?qk=547 National Digestive Diseases Information Clearinghouse http://digestive.niddk.nih.gov/ddiseases/pubs/colonoscopy/ Last Reviewed Date 2016-06-27 Consumer Information Use and Disclaimer This information [...] is right for you. Copyright Copyright ?? 2018 [employer], Inc. and its affiliates and/or licensors. All rights reserved. ?? OM CAR BUILDER documented in this encounter Medications at Time of Discharge cetirizine 10 MG tablet Take 10 mg by mouth daily. 3 desogestrel-ethinyl estradiol (AZURETTE) 0.15-0.02/0.01 MG (16/10) tabletIndications:Tyrell adair general medical examination at a health care facility Take 1 tablet by mouth daily. 28 tablet 11 05/06/2019 1 dicyclomine 20 MG tabletIndications:Chr onic diarrhea Take 1 tablet (20 mg total) by mouth every 6 (six) hours. 120 tablet 1 06/19/[address] sprinkle 125 MG capsuleIndications:Se izure disorder (CMS/HCC HHS/HCC) Take 3 capsules in the morning and 4 capsules in the evening. 210 capsule 1 05/16/2019 1 levETIRAcetam 750 MG tablet TAKE 1 TABLET TWICE DAILY FOR THE FIRST WEEK THEN TAKE 2 TABLET TWICE DAILY FOR THE SECOND WEEK DIRECTED 06/16/2019 2 Levocetirizine Dihydrochloride (XYZAL OR) 1 predniSONE 20 MG tabletIndications:Acu te ulcerative colitis with complication (CMS/HCC HHS/HCC) Take 2 tablets (40 mg total) by mouth daily for 60 days. 120 tablet 06/28/2019 0 documented as of this encounter Progress Notes * Stoney Johns MD - 06/28/2019 12:51 PM CST You biopsies are consistent with ulcerative colitis. See me in office OM CAR BUILDER documented in this encounter H&P Notes * Stoney Johns MD - 06/28/2019 10:48 AM CST HISTORY AND PHYSICAL INTERVAL NOTE: I have reviewed Paige Zavaleta History & Physical which was performed within the past 30 days. After examining Paige Zavaleta, no change has occurred in the patient's condition since the H&P was completed. Informed Consent Discussion: Potential benefits, risks, and side effects of the patient's procedure/surgery; the likelihood of the patient achieving his or her goals; and any potential problems that might occur during recuperation were discussed with the patient/family/personal telecommunications sales representative. Reasonable alternatives to the patient's proposed procedure/surgery including benefits, risks, and side effects related to the alternatives and the risks related to not receiving the proposed care were also discussed with the patient/family/personal telecommunications sales representative. Questions were answered and the patient/family/personal telecommunications sales representative verbalized understanding and desires to proceed. OM CAR BUILDER Source Note - Seble Bliss NP - 06/19/2019 8:00 AM CUSTOM CAR BUILDER Images from the original note were not included. Gastroenterology Established Visit Reason for Visit: Hematochezia (blood in stool; pt also is having adominal pain which is causing her to lose sleep) History of Present Illness: HPI Paige Zavaleta is a 23-year-old female being seen in clinic for referral by Karson Payne MD [facility] for complaints of nausea and diarrhea x6 months. Pt notes diarreha was initially resolved with dicyclomine 10 mg QID however it stopped working for her and she stopped takingit months ago. Pt has not seen or called me since 11/2018 appt until yesterday and we order fecal stool testing due to increase in diarrhea frequency and accompanied by blood or mucus in the stool. She does not feel hemorrhoids at the rectum. Pt was resistent to performing colonoscopy at initial visit but wants to pursue this now. Diarrhea is described as having 3-4 nocturnal bouts of diarrhea and is now unable to lay on her stomach because this elicits her to have to have a bowel movement. She also has approximately 4 bowel movements before 10 AM and can have a total of between 10-20 bowel movements daily. She does note these are primarily watery to extremely loose and texture. Patient has used Pepto-Bismol and ywzg-xjy-cjunigg antidiarrheal medication with not much effect on her diarrhea. She did try Imodium once and caused her constipation x3 days and has not used that since that time. I have ordered multiple fecal studies to be performed and patient plans to accomplish this today. Patient denies any foreign travel, water contamination or potential food sources of contamination or sick contacts. Last CBC was performed in April 2019 with WBC elevation at 13.2 which was down from 16.0 on 12/15/2018 when patient was in the emergency room. Patient reports generalized abdominal discomfort x5 days notes she no longer has cramps just feels overall tender in the abdomen. Not able to specify region but does say it migrates more so from upper abdomen to lower abdomen. Patient was previously seen in the [facility] emergency room on 12/15/2018 due to 2 weeks of diarrhea, mucus and bloody stools. underwent a CT scan of the abdomen and pelvis. ?? No nausea, vomiting, dysphagia, heart burn or acid reflux. Appropriate appetite. No constipation or melena. No weight loss despite diarrhea. Patient does note that she is a little stressed about not having a job after her recent graduation in . ?? Prior abdominal surgeries: none. No colonoscopies or EGDs in the past. No prior h/o hepatitis,+ prior tattoos, no prior blood transfusions, no drug use, + ETOH use 5 drinks/week, and no smoking. No family history of GI/Colon Cancer. No history of IBD or IBS. NSAID/Blood thinner use: none LMP: ROS: ROS Constitutional: Negative for chills, fever and malaise/fatigue. Negative for decreased appetite HENT: Negative for congestion, sore throat and tinnitus. Respiratory: Negative for cough, hemoptysis, sputum production and shortness of breath. Cardiovascular: Negative for chest pain and leg swelling. Gastrointestinal: Refer to HPI. Genitourinary: Negative for dysuria and hematuria. Musculoskeletal: Negative for joint pain and myalgias. Neurological: Positive for seizures (general seizure disorder. Black out vision at age 12 and was on medication until 18 years old. Now back on medication and wants to go off of them and is trying [facility]). Negative for dizziness and headaches. Endo/Heme/Allergies: Does not bruise/bleed easily. Psychiatric/Behavioral: Positive for depression (Slight ). The patient is not nervous/anxious. Family in [place]. ?? Medications: Current Outpatient Medications: ??? desogestrel-ethinyl estradiol (AZURETTE) 0.15-0.02/0.01 MG (16/10) tablet, Take 1 tablet by mouth daily., Disp: 28 tablet, Rfl: 11 ??? dicyclomine 20 MG tablet, Take 1 tablet (20 mg total) by mouth every 6 (six) hours., Disp: 120 tablet, Rfl: 1 ??? divalproex DR sprinkle 125 MG capsule, Take 3 capsules in the morning and 4 capsules in the evening., Disp: 210 capsule, Rfl: 1 ??? levETIRAcetam 750 MG tablet, TAKE 1 TABLET TWICE DAILY FOR THE FIRST WEEK THEN TAKE 2 TABLET TWICE DAILY FOR THE SECOND WEEK DIRECTED, Disp: , Rfl: ??? Levocetirizine Dihydrochloride (XYZAL OR), , Disp: , Rfl: ??? Na sulfate-K sulfate-Mg sulfate (SUPREP BOWEL PREP KIT) 17.5-3.13-1.6 GM/177ML Solution, Take 177 mLs by mouth every 12 (twelve) hours. Take as directed by instruction sheet., Disp: 2 Bottle, Rfl: 0 Allergies: No Known Allergies Medical History: Past Medical History: Diagnosis Date ??? Seizures (CMS/HCC) Surgical History: Past Surgical History: Procedure Laterality Date ??? TONSILLECTOMY Social History: Social History Tobacco Use ??? Smoking status: Never Smoker ??? Smokeless tobacco: Never Used Substance Use Topics ??? Alcohol use: Yes Frequency: Monthly or less Drinks per session: 1 or 2 Comment: occasional ??? Drug use: No Family History: No family history on file. PE: Filed Vitals: 06/19/19 0829 BP: 114/84 Pulse: 78 Resp: 18 Temp: 98 ??F (36.7 ??C) TempSrc: Oral Weight: 131.5 kg (290 lb) Height: 5' 10 (1.778 m) PHYSICAL EXAM Constitutional: She is oriented to person, place, and time and well-developed, well-nourished, and in no distress. HENT: Mouth/Throat: Oropharynx is clear and moist. Eyes: No scleral icterus. Cardiovascular: Normal rate, regular rhythm and normal heart sounds. No murmur heard. Pulmonary/Chest: Breath sounds normal. No respiratory distress. Abdominal: Soft. Bowel sounds are normal. She exhibits no distension and no mass. There is no hepatosplenomegaly. There is slight generalized tenderness in all quadrants. There is no rebound and no guarding. No hernia. Patient has central adiposity, slightly difficult to feel for any organomegaly. Patient denies any tenderness with deep palpation of entire abdomen. Patient does have a intact clean pannus. Residual navel piercing puncture site. Musculoskeletal: She exhibits no edema. Neurological: She is alert and oriented to person, place, and time. Gait normal. Skin: Skin is warm and dry. No rash noted. Psychiatric: Mood and affect normal. Nursing note and vitals reviewed. Labs Reviewed: Lab Results Component Value Date [...] 05/07/2019 AST 12 05/07/2019 ALKP 53 05/07/2019 Imagin12/15/2018 CT of abdomen and pelvis with [...] is likely physiologic. ? Endoscopic Results Reviewed: Never performed. ?? Diagnoses/Impression: Chronic diarrhea (primary encounter diagnosis) Bloody diarrhea Generalized abdominal pain 1. Chronic bloody diarrhea x 4 months: Notes she does not have any history of IBD in the family. Nocturnal bowel movements 3-4, and during the day anywhere from 10-20 bloody diarrhea alternating withhematochezia. Patient denies any weight loss, dizziness, or fatigue. Dicyclomine 10 mg 4 times daily stopped working to control diarrhea and has been missing work due to this. Schedule colonoscopy for diagnostic purposes due to chronic diarrhea. Keppra was added to her medication about 5 weeks ago but notes the frequency of diarrhea has been going on for about 4 months. Patient has attempted to use Pepto-Bismol, asdm-lds-ukptfoh antidiarrheal pills with minimal effects and one time used Imodiumthat caused her constipation for 2 to 3 days. Patient has not really used Imodium. Patient is receptive to using dicyclomine 20 mg every 6 hours as needed for diarrhea. Patient will perform stool studies today to rule out infectious causes of diarrhea. Last CBC was performed in April 2019 with WBC elevation at 13.2 which was down from 16.0 on 12/15/2018 when patient was in the emergency room. Patient denies any foreign travel, water contamination or potential food sources of contamination or sick contacts. 2. Generalized abdominal pain: This has started approximately 5 days ago described more as tenderness and discomfort than pain. Patient notes its migratory pain starting usually from the upper quadrants down towards the lower quadrants. And notes she is unable to lay in a prone position due to the urgency to have stools. Patient had a CT scan of the abdomen in November 2018 with mildly prominent right lower quadrant mesenteric lymph nodes. 3. Comorbid Conditions: Seizures on Keppra Recommendations and Plan: ?? Provided pt with scripts for fecal testing: WBCs, stool culture, Cryptosporidium, and giardia difficile. ?? LMP: 05/17/19 ?? I previously informed patient that if the rectal bleeding does return to contact GI clinic and will consider performing colonoscopy to rule out any other etiology outside of hemorrhoids for this. Pt notes she did reach out to PCP but did not change any thing. Pt did not call GI clinic until yesterday about her return of symptoms. ?? Schedule Colonoscopy for diagnostic purposes due to chronic bloody diarrhea associated with nocturnal bouts 3-4 daily, during the day anywhere from 10-20 watery bowel movements. Please schedule assoon as patient can arrange. ?? It is recommended to consume 20-35 grams of fiber per day and at least 64 ounces/2 liters of water per day. ?? All questions answered ?? Follow-up as needed if symptoms Orders placed this encounter: Dicyclomine 20 mg every 6 hours Suprep bowel prep Risks, benefits, alternatives as well as the consequences of not performing the surgery/procedure were discussed with the patient and/or family/personal telecommunications sales representative. Risks can include but are not limited to: discomfort, missing lesions, allergic or adverse reaction to the sedative, perforation of the bowel which may require hospitalization and surgery, bleeding, infection, aspiration, and evendeath. Questions were answered and the patient/family/personal telecommunications sales representative verbalized understanding anddesires to proceed. Seble Bliss NP 06/19/2019 OM CAR BUILDER documented in this encounter OR Notes * Op Note - Stoney Johns MD - 06/28/2019 11:31 AM CST [facility] OpNote COLONOSCOPY WITH BIOPSIES Procedure Note Paige Bernardo Waqar 06/28/2019 1023 Procedure(s) (LRB): COLONOSCOPY WITH BIOPSIES (N/A) Surgeon(s): Stoney Johns MD Staff: Circulating Nurse 1: Bridget Mahan RN Scrub Person 1: Sujata Whitman RN Anesthesia: Monitor Anesthesia Care LUG BREAKER AND WIRE PULLER: Dianna Major CRNA Pre-Op Diagnosis: R19.7, K92.1 Post-Op Diagnosis: Pancolitis likely ulcerative colitis. Procedure Description: Informed consent was obtained earlier. Patient was brought to the OR and placed in supine lateral decubitus position and sedated under MAC anesthesia. PCF 190 colonoscope was lubricated inserted into the rectum advanced all the way to the cecum. Bowel prep was excellent. Cecum was identified by the ileocecal valve and the appendiceal orifice. Was negative. Patient has pancolitis. Mucosa involving the cecum ascending colon transverse descending sigmoid and rectum were all carefully visualized and found to have a diffuse ulcerative pancolitis. Biopsies were taken of the right colon transverse colon left colon and rectum separately. Findings: Diffuse moderate severe pancolitis likely ulcerative colitis. Extensive biopsies taken. Will initiate prednisone therapy today. Patient will be checked for TP MT level, TB QuantiFERON gold levels as well as a hepatitis B. She should be started on biological agents such as Humira plus immunomodulators. We will need to see her back in the office. Plan: Await biopsies. Start prednisone 40 mg daily to taper over a month. She will likely benefit from Humira plus immunosuppressant. Complications: Minor bleeding post biopsies. Estimated Blood Loss: * No values recorded between 06/28/2019 11:03 AM and 06/28/2019 11:29 AM * Specimens: Order Name Source Comment Collection Info Order Time CHORIONIC GONADOTROPIN HCG QL 06/28/2019 10:05 AM PATHOLOGY COLON Hx diarrhea Collected By: Stoney Johns MD 06/28/2019 11:28 AM Voice recognition software utilized. STONEY JOHNS MD Date: 06/28/2019 Time: 11:32 AM Voice recognition software utilized. OM CAR BUILDER documented in this encounter Plan of Treatment Upcoming Encounters Date Type Department Care Team (Late st Contact Info) Description 08/21/2024 4:00 PM CDT Office Visit [facility] Family Medicine - [place] [address] [place] [phone] Chalra Campos PA-C [address] [place] [address] [address] documented as of this encounter Procedures Procedure Name Priority Date/Time Associated Diagnosis Comments QUANTIFERON-TB GOLD PLUS, 4T Routine 06/28/2019 12:54 PM CUSTOM CAR BUILDER Acute ulcerative colitis with complication (CMS/HCC HHS/HCC) TPMT ACTIVITY Routine 06/28/2019 12:54 PM CUSTOM CAR BUILDER Acute ulcerative colitis with complication (CMS/HCC HHS/HCC) HEPATITIS PANEL,ACUTE Routine 06/28/2019 12:54 PM CUSTOM CAR BUILDER Acute ulcerative colitis with complication (CMS/HCC HHS/HCC) PATHOLOGY Routine 06/28/2019 11:15 AM CUSTOM CAR BUILDER COLONOSCOPY DIAGNOSTIC WITH/WITHOUT SPECIMEN BRUSH/WASH 06/28/2019 11:02 AM CUSTOM CAR BUILDER R19.7, K92.1 Special Needs 0900 CHORIONIC GONADOTROPIN HCG QL Routine 06/28/2019 9:50 AM CUSTOM CAR BUILDER documented in this encounter Results * HEPATITIS PANEL,ACUTE (06/28/2019 12:54 PM CUSTOM CAR BUILDER) HEPATITIS B SURFACE AG NON-REACTI VE NON-REACTI VE 06/28/2019 11:43 PM CUSTOM CAR BUILDER [facility] HEP B CORE IGM NON-REACTI VE NON-REACTI VE 06/28/2019 11:43 PM CUSTOM CAR BUILDER [facility] HAV IGM NON-REACTI VE NON-REACTI VE 06/28/2019 11:43 PM CUSTOM CAR BUILDER [facility] HEPATITIS C AB NON-REACTI VE NON-REACTI VE 06/28/2019 11:43 PM CUSTOM CAR BUILDER [facility] 06/28/2019 12:5 4 PM CUSTOM CAR BUILDER Stoney Johns MD LABORATORY Final Result [facility] [address] [phone], * QUANTIFERON-TB GOLD PLUS, 4T (06/28/2019 12:54 PM CUSTOM CAR BUILDER) Pathologist [facility] QUANTIFERON TB PLUS 4T NEGATIVE NEGATIVE 07/02/2019 11:23 PM CUSTOM CAR BUILDER [facility] BEATRICE JAMIL Comment: Negative test result. M. tuberculosis complex infection unlikely. NIL (TB) 0.02 IU/mL 07/02/2019 11:23 PM CUSTOM CAR BUILDER [facility] L[place]-CARMELA LLY MITOGEN NIL 5.79 IU/mL 07/02/2019 11:23 PM CUSTOM CAR BUILDER [facility] MYERS-ACRMELA LLY TB1 AG MINUS NIL 0.04 IU/mL 07/02/19 20 11:23 PM CUSTOM CAR BUILDER [facility] [place]-CARMELA LLY TB2 AG MINUS NIL 0.02 IU/mL 07/02/19 20 11:23 PM CUSTOM CAR BUILDER [facility] BEATRICE JAMIL Comment: The Nil tube value reflects the [...] T-lymphocytes. For additional information, please refer to http://education.Power [employer]/faq/XMH637 (This link is being provided for information/ educational purposes only.) Test Performed by Jeevan Schmitt, [facility], [address] [place] [address] José Antonio Mart M.D., Ph.D., Director of Laboratories , [facility] [id number] 06/28/2019 12:5 4 PM CUSTOM CAR BUILDER Stoney Johns MD LABORATORY Final Result [facility] [address] [place] [phone], * TPMT ACTIVITY (06/28/2019 12:54 PM CUSTOM CAR BUILDER) [facility] TPMT ACTIVITY 18 07/05/2019 6:15 PM CUSTOM CAR BUILDER [facility] ROMARIO GELLER Comment: Units: ??nmol/hr/mL RBC Reference Range for TPMT Activity: ??>12 ? Normal 4-12 ? Heterozygote or low metabolizer ?? <4 ? Homozygote Deficient Range This test was developed and its analytical performance characteristics have been determined by [facility]. It has not been cleared or approved by FDA. This assay has been validated pursuant to the CLIA regulations and is used for clinical purposes. Test performed by [facility] [place] ? [address], ? [place] [address] ? Court Registry Officer: Elyse Canela MD,PHD,SANDRA Test Reported by [facility], [facility], [address] [place] [address] José Antonio Mart M.D., Ph.D., Director of Laboratories , [place] [id number] 06/28/2019 12:5 4 PM CUSTOM CAR BUILDER Stoney Johns MD LABORATORY Final Result [facility] [address] [phone], * Pathology (06/28/2019 11:15 AM CUSTOM CAR BUILDER) Tissue specimen (specimen) COLON STRUCTURE / Unknown 06/28/2019 11:15 AM CUSTOM CAR BUILDER Comment:Hx diarrhea Tissue specimen (specimen) COLON STRUCTURE / Unknown 06/28/2019 11:18 AM CUSTOM CAR BUILDER Tissue specimen (specimen) COLON STRUCTURE / Unknown 06/28/2019 11:22 AM CUSTOM CAR BUILDER Tissue specimen (specimen) COLON STRUCTURE / Unknown 06/28/2019 11:25 AM CUSTOM CAR BUILDER Narrative [facility] - 07/01/2019 1:45 PM CUSTOM CAR BUILDER Date of Service: ??06/28/2019 Pre-operative Diagnosis: ??R19.7, K92.1 GROSS DESCRIPTION: ??The specimen was received in formalin four containers on 06/28/2019. A. ??The first container is labeled with the patient's name and \ random right colon biopsy.\ ??The specimen consists of four villavicencio ovoid fragments of tissue measuring 0.2 cm in greatest dimension. ??The specimen is submitted entirely in block A. B. ??The second container is labeled with the patient's name and \ random transverse colon biopsy.\ ??The specimen consists of five villavicencio ovoid fragments of tissue measuring 0.2 cm in greatest dimension. ??It is submitted entirely in block B. C. ??The third container is labeled with the patient's name and \ random left colon biopsy.\ ??The specimen consists of five pink-villavicencio ovoid fragments of tissue measuring 0.2 cm in greatest dimension. ??The specimen is submitted entirely in block C. ?? D. ??The fourth container is labeled with the patient's name and \ random rectum biopsy.\ ??The specimen consists of two villavicencio ovoid fragments of tissue measuring 0.3 cm in greatest dimension. ??The specimen is submitted entirely in block C. (CPT Code: ?? 62447 x4) Site: ??[facility]) D: ??06/28/2019 02:39 PM #[id number] T: ??06/28/2019 02:53 PM /NTS A copy of this report has been sent to: [facility] MICROSCOPIC DIAGNOSIS: ?? I. ??Random biopsies from right colon: ?? - Diffuse active colitis with cryptitis and crypt architecture distortion. - Ulceration of the mucosa. II. ??Random biopsies from transverse colon: - Diffuse active colitis with cryptitis, ulceration, and distortion of crypt architecture. III. ??Random biopsies from left colon: - Diffuse active colitis with cryptitis, crypt abscesses, distortion of architecture of the crypts ??(ulcerative colitis). IV. ??Random biopsies from rectum: ?? - Diffuse active colitis with cryptitis, ulceration, areas ??granulation tissue (specimen is consistent with ulcerative colitis). MICROSCOPIC DESCRIPTION: ?? Sections of all the submitted fragments shows similar histology. ??All the submitted fragments are diseased. ??There is a diffuse active colitis, cryptitis, erosion of the mucosa with acute and chronic inflammation, and distortion of the crypt architecture. ?? Crypt abscesses are present in block C. ?? Block D shows extensive ulceration with granulation ??tissue and dense lymphocytic infiltration. ?? Site: ??[facility] ([facility]) D: ??07/01/2019 11:49 AM #[id number] T: ??07/01/2019 01:10 PM /NTS us Stoney Johns MD PATHOLOGY/CYTOLOGY ORDERABLES Fi nal Result Performing Organization Address [facility]/ZIP Co de Phone Number [facility] [address] [place] [address], [place] [phone] * CHORIONIC GONADOTROPIN HCG QL (06/28/2019 9:50 AM CUSTOM CAR BUILDER) PREG SCREEN-SERUM NEGATIVE NEGATIVE 06/28/2019 10:11 AM CUSTOM CAR BUILDER [facility] 06/28/2019 9:50 AM CUSTOM CAR BUILDER us Stoney Johns MD LABORATORY Final Result Performing Organization Address [facility] de Phone Number [facility] [address] [place] [address], [place] [phone] documented in this encounter Visit Diagnoses Diagnosis Acute ulcerative colitis with complication ([facility]/HCC [facility]/HCC)- Primary documented in this encounter Administered Medications Inactive Administered Medications - up to 3 most recent administrations Medication Order MAR Action Action Date Dose Rate Site lactated ringers infusion at 10 mL/hr, Intravenous, Continuous, Starting on Mon06/28/19 at 0945, Until Mon06/28/19 at 1451, Infuse at TKO rate, Pre-Op New Bag 06/28/2019 9:51 AM CUSTOM CAR BUILDER 10 mL/hr documented in this encounter Active and Recently Administered Medications Times are shown in CUSTOM CAR BUILDER. Continuous Medication Order 06/26/2019 06/27/2019 06/28/2019 lactated ringers infusion at 10 mL/hr, Intravenous, Continuous, Starting on Mon06/28/19 at 0945, Until Mon06/28/19 at 1451, Infuse at TKO rate, Pre-Op 0951 (New Bag - Prov ider: Humera Mcgee RN)[id number] (Infusion Stop Time - Provider: Dianna Major CRNA) documented in this encounter
--- OUTSIDE RECORDS SUMMARY | 2024-06-08 07:56 | XMS_ITS | Encounter Summary ---
Author Organization [facility] Address [facility] [place] [address] [place] [address] Care Team Providers Care Silk Weaver Name Role Phone Unavailable Primary Care Provider Unavailabl e Encounter Details Date Type Department Care Team (Late Contact Info) Description 06/28/2019 Scan [facility] [employer] [address] [place], [place] [phone] Scanned, Documents Social History Tobacco Use Types [...] [facility] Family Medicine - [place] [address] [place] [phone] Charla Campso PA-C [address] [facility] [place] [address] documented as of this encounter Procedures Procedure Name Priority Date/Time Associated Diagnosis Comments COLONOSCOPY GENERIC (SCAN ORDER) Routine 06/28/2019 documented in this encounter Results * COLONOSCOPY (06/28/2019) us Documents Scanned SCANNING Final Result documented in this encounter Visit Diagnoses Not on filedocumented in this encounter
--- OUTSIDE RECORDS SUMMARY | 2024-06-08 07:56 | XMS_ITS | Encounter Summary ---
Author Organization [facility] Address [facility] [place] [address] [place] [address] Care Team Providers Care Corpsman Name Role Phone Unavailable Primary Care Provider Unavailabl e Reason for Visit * Auth/Cert Specialty Diagnoses / Procedures Referred By Yodit kenney Referred To Contact Diagnoses R19.7, K92.1 Procedures COLONOSCOPY DIAGNOSTIC WITH/WITHOUT SPECIMEN BRUSH/WASH Referral ID Status Reason Start Date Expiration Date Visits Re quested Visits Authorized [id number] 1 1 Encounter Details Date Type Department Care Team (Late st Contact Info) Description 06/28/2019 10:23 AM CATALOGUE AND SPECIAL PRODUCTS MANAGER - 06/28/2019 10:52 AM CATALOGUE AND SPECIAL PRODUCTS MANAGER Surgery [facility] [address] [place] [address] Stoney Johns MD [address] [place] [address] COLONOSCOPY WITH BIOPSIES Surgery Details Date/Time Status Location OR Service Patient Class Case Class Case Type Trauma Case? 06/28/2019 10:23 AM Posted [facility] OR Endo Gastroenterology Short Stay/Outpa tient Surgery No Panel 1 Procedure LRB Anes Op Region Wound Class Comments COLONOSCOPY WITH BIOPSIES N/A Monitor Anesthesia Care Clean Contaminated Surgeon Surgeon Role Service Panel Stoney Johns MD Primary Gastroenterology 1 Special Needs 0900 documented in this encounter Social History Tobacco [...] Sign Reading Time Taken Comments Blood Pressure 127/79 06/28/2019 9:45 AM CATALOGUE AND SPECIAL PRODUCTS MANAGER Pulse 99 06/28/2019 9:45 AM CATALOGUE AND SPECIAL PRODUCTS MANAGER Temperature 35.8 ??C (96.5 ??F) 06/28/2019 9:45 AM CS T Respiratory Rate 16 06/28/2019 9:45 AM CATALOGUE AND SPECIAL PRODUCTS MANAGER Oxygen Saturation 96% 06/28/2019 9:45 AM CATALOGUE AND SPECIAL PRODUCTS MANAGER Inhaled Oxygen Concentration - - Weight 131.5 kg (290 lb) 06/21/2019 9:56 AM CATALOGUE AND SPECIAL PRODUCTS MANAGER Height 180.3 cm (5' 11 ) 06/21/2019 9:56 AM CATALOGUE AND SPECIAL PRODUCTS MANAGER Body Mass Index 40.45 06/21/2019 9:56 AM CATALOGUE AND SPECIAL PRODUCTS MANAGER documented in this encounter Discharge Instructions * Discharge Instructions* Stoney Johns MD - 06/28/2019 11:44 AM CATALOGUE AND SPECIAL PRODUCTS MANAGER Images from the original note were not [...] more common in Caucasians and people of Taoism descent What are the main signs? ?? [...] IBD. Where can I learn more? FamilyDoctor.org http://familydoctor.org/familydoctor/en/diseases-conditions/pdwteoukwnss-bihxm-i isease/symptoms.html National Digestive Diseases Information Clearinghouse http://digestive.niddk.nih.gov/ddiseases/pubs/crohns_ez/index.aspx National Digestive Diseases Information Clearinghouse http://digestive.niddk.nih.gov/ddiseases/pubs/colitis/index.aspx U.S. Department of Health and Human Services Office on Women's Health https://www.womenshealth.gov/publications/our-publications/fact-sheet/inflammato zb-nqiel-coflmak.html Last Reviewed Date 2016-11-25 Consumer Information Use [...] right for you. Copyright Copyright ?? 2019 [employer]. and its affiliates and/or licensors. All rights [...] belly pain. Where can I learn more? [place] [employer] Association http://www.gastro.org/info_for_patients/fyenwejllzo-260-ysct-yo-a-rfezfawwshp [place] Society for Gastrointestinal Endoscopy http://www.asge.org/patients/patients.aspx?sh=755 National Digestive Diseases Information Clearinghouse http://digestive.niddk.nih.gov/ddiseases/pubs/colonoscopy/ Last [...] right for you. Copyright Copyright ?? 2018 [employer]. and its affiliates and/or licensors. All rights reserved. ?? LOGUE AND SPECIAL PRODUCTS MANAGER documented in this encounter Medications at Time [...] DR sprinkle 125 MG capsuleIndications:Se izure disorder ([facility] HHS/HCC) Take 3 capsules in the morning and 4 capsules in the evening. 210 capsule 1 05/16/2019 1 levETIRAcetam 750 MG tablet TAKE 1 TABLET TWICE DAILY FOR THE FIRST WEEK THEN TAKE 2 TABLET TWICE DAILY FOR THE SECOND WEEK DIRECTED 06/16/2019 2 Levocetirizine Dihydrochloride (XYZAL OR) 1 predniSONE 20 MG tabletIndications:Acu te ulcerative colitis with complication ([facility] HHS/[facility]) Take 2 tablets (40 mg total) by mouth daily for 60 days. 120 tablet 06/28/2019 0 documented as of this encounter Progress Notes * Stoney Johns MD - 06/28/2019 12:51 PM CST You biopsies are consistent with ulcerative colitis. See me in office LOGUE AND SPECIAL PRODUCTS MANAGER documented in this encounter H&P Notes * [...] during recuperation were discussed with the patient/family/personal representative phlebotomy services. Reasonable alternatives to the patient's proposed procedure/surgery including benefits, risks, and side effects related to the alternatives and the risks related to not receiving the proposed care were also discussed with the patient/family/personal representative phlebotomy services. Questions were answered and the patient/family/personal representative phlebotomy services verbalized understanding and desires to proceed. LOGUE AND SPECIAL PRODUCTS MANAGER Source Note - Seble Bliss NP - 06/19/2019 8:00 AM CATALOGUE AND SPECIAL PRODUCTS MANAGER Images from the original note were not included. Gastroenterology Established Visit Reason for Visit: Hematochezia (blood in stool; pt also is having adominal pain which is causing her to lose sleep) History of Present Illness: HPI Paige Zavaleta is a 23-year-old female being seen in clinic for referral by Karson Payne MD foremergency room follow-up for complaints of nausea and [...] and texture. Patient has used Pepto-Bismol and eqcg-guw-pyywmsb antidiarrheal medication with not much effect on [...] abdomen. Patient was previously seen in the [facility] emergency room on 12/15/2018 due [...] and is trying togo to clinic to [facility]). Negative for dizziness and headaches. Endo/Heme/Allergies: Does not bruise/bleed easily. Psychiatric/Behavioral: Positive for depression (Slight ). The patient is not nervous/anxious. Family in [place]. ?? Medications: Current Outpatient Medications: ??? desogestrel-ethinyl estradiol (AZURETTE) 0.15-0.02/0.01 MG (/) [...] months. Patient has attempted to use Pepto-Bismol, bcxn-cta-yeubxux antidiarrheal pills with minimal effects and one [...] were discussed with the patient and/or family/personal representative phlebotomy services. Risks can include but are not limited to: discomfort, missing lesions, allergic or adverse reaction to the sedative, perforation of the bowel which may require hospitalization and surgery, bleeding, infection, aspiration, and evendeath. Questions were answered and the patient/family/personal representative phlebotomy services verbalized understanding anddesires to proceed. Seble Bliss NP 06/19/2019 LOGUE AND SPECIAL PRODUCTS MANAGER documented in this encounter OR Notes * Op Note - Stoney Johns MD - 06/28/2019 11:31 AM CST [facility] OpNote COLONOSCOPY WITH BIOPSIES Procedure Note Paige Bernardo Waqar 06/28/2019 1023 Procedure(s) (LRB): COLONOSCOPY WITH BIOPSIES (N/A) Surgeon(s): Stoney Johns MD Staff: Circulating Nurse 1: Bridget Mahan RN Scrub Person 1: Sujata Whitman RN Anesthesia: Monitor Anesthesia Care STOCK HOUSE WORKER: Dianna Major CRNA Pre-Op Diagnosis: R19.7, K92.1 [...] Time: 11:32 AM Voice recognition software utilized. LOGUE AND SPECIAL PRODUCTS MANAGER documented in this encounter Plan of Treatment Upcoming Encounters Date Type Department Care Team (Late st Contact Info) Description 08/21/2024 4:00 PM CDT Office Visit [facility] Medical Group Family Medicine - [address] [address] Charla Campos PA-C [address] [place] [address] documented as of this encounter Procedures Procedure Name Priority Date/Time Associated Diagnosis Comments QUANTIFERON-TB GOLD PLUS, 4T Routine 06/28/2019 12:54 PM CATALOGUE AND SPECIAL PRODUCTS MANAGER Acute ulcerative colitis with complication ([facility]HCC [facility]) TPMT ACTIVITY Routine 06/28/2019 12:54 PM CATALOGUE AND SPECIAL PRODUCTS MANAGER Acute ulcerative colitis with complication (CMS/HCC HHS/HCC) HEPATITIS PANEL,ACUTE Routine 06/28/2019 12:54 PM CATALOGUE AND SPECIAL PRODUCTS MANAGER Acute ulcerative colitis with complication (CMS/HCC HHS/HCC) PATHOLOGY Routine 06/28/2019 11:15 AM CATALOGUE AND SPECIAL PRODUCTS MANAGER COLONOSCOPY DIAGNOSTIC WITH/WITHOUT SPECIMEN BRUSH/WASH 06/28/2019 11:02 AM CATALOGUE AND SPECIAL PRODUCTS MANAGER R19.7, K92.1 Special Needs 0900 CHORIONIC GONADOTROPIN HCG QL Routine 06/28/2019 9:50 AM CATALOGUE AND SPECIAL PRODUCTS MANAGER documented in this encounter Results * HEPATITIS PANEL,ACUTE (06/28/2019 12:54 PM CATALOGUE AND SPECIAL PRODUCTS MANAGER) Pathologist [facility] HEPATITIS B SURFACE AG NON-REACTI VE NON-REACTI VE 06/28/2019 11:43 PM CATALOGUE AND SPECIAL PRODUCTS MANAGER [facility] HEP B CORE IGM NON-REACTI VE NON-REACTI VE 06/28/2019 11:43 PM CATALOGUE AND SPECIAL PRODUCTS MANAGER [facility] HAV IGM NON-REACTI VE NON-REACTI VE 06/28/2019 11:43 PM CATALOGUE AND SPECIAL PRODUCTS MANAGER [facility] HEPATITIS C AB NON-REACTI VE NON-REACTI VE 06/28/2019 11:43 PM CATALOGUE AND SPECIAL PRODUCTS MANAGER [facility] 06/28/2019 12:5 4 PM CATALOGUE AND SPECIAL PRODUCTS MANAGER Stoney Johns MD LABORATORY Final Result [facility] [address] [place] [address], * QUANTIFERON-TB GOLD PLUS, 4T (06/28/2019 12:54 PM CATALOGUE AND SPECIAL PRODUCTS MANAGER) Pathologist [facility] QUANTIFERON TB PLUS 4T NEGATIVE NEGATIVE 07/02/2019 11:23 PM CATALOGUE AND SPECIAL PRODUCTS MANAGER [facility]IL Comment: Negative test result. M. tuberculosis complex infection unlikely. NIL (TB) 0.02 IU/mL 07/02/2019 11:23 PM CATALOGUE AND SPECIAL PRODUCTS MANAGER [facility] MYERS-CARMELA LLY MITOGEN NIL 5.79 IU/mL 07/02/2019 11:23 PM CATALOGUE AND SPECIAL PRODUCTS MANAGER [facility] MYERS-CARMELA LLY TB1 AG MINUS NIL 0.04 IU/mL 07/02/19 11:23 PM CATALOGUE AND SPECIAL PRODUCTS MANAGER [facility] MYERS-PERRYTI LLY TB2 AG MINUS NIL 0.02 IU/mL 07/02/19 11:23 PM CATALOGUE AND SPECIAL PRODUCTS MANAGER [facility] MYERS-CARMELA LLY Comment: The Nil tube value reflects [...] T-lymphocytes. For additional information, please refer to http://education.AppCard.Yogome/faq/BKF777 (This link is being provided for information/ educational purposes only.) Test Performed by Jeevan Schmitt, [facility], [address] [place] [address] José Antonio Mart M.D., Ph.D., Director of Laboratories , [facility] [id number] 06/28/2019 12:5 4 PM CATALOGUE AND SPECIAL PRODUCTS MANAGER us Stoney Johns MD LABORATORY Final Result [facility] [address] [place] [address], * TPMT ACTIVITY (06/28/2019 12:54 PM CATALOGUE AND SPECIAL PRODUCTS MANAGER) TPMT ACTIVITY 18 07/05/2019 6:15 PM CATALOGUE AND SPECIAL PRODUCTS MANAGER [facility] GELLER Comment: Units: ??nmol/hr/mL RBC Reference Range for TPMT Activity: ??>12 ? Normal 4-12 ? Heterozygote or low metabolizer ?? <4 ? Homozygote Deficient Range This test was developed and its analytical performance characteristics have been determined by [facility]. It has not been cleared or approved by FDA. This assay has been validated pursuant to the CLIA regulations and is used for clinical purposes. Test performed by [facility] ? [address], ? [place] [address] ? Senior Insight Manager International: Elyse Canela MD,PHD,SANDRA Test Reported by [facility], [facility], [address] [place] [address] José Antonio Mart M.D., Ph.D., Director of Laboratories , CLIA [id number] 06/28/2019 12:5 4 PM CATALOGUE AND SPECIAL PRODUCTS MANAGER Stoney Johns MD LABORATORY Final Result [address] [address], * Pathology (06/28/2019 11:15 AM CATALOGUE AND SPECIAL PRODUCTS MANAGER) Tissue specimen (specimen) COLON STRUCTURE / Unknown 06/28/2019 11:15 AM CATALOGUE AND SPECIAL PRODUCTS MANAGER Comment:Hx diarrhea Tissue specimen (specimen) COLON STRUCTURE / Unknown 06/28/2019 11:18 AM CATALOGUE AND SPECIAL PRODUCTS MANAGER Tissue specimen (specimen) COLON STRUCTURE / Unknown 06/28/2019 11:22 AM CATALOGUE AND SPECIAL PRODUCTS MANAGER Tissue specimen (specimen) COLON STRUCTURE / Unknown 06/28/2019 11:25 AM CATALOGUE AND SPECIAL PRODUCTS MANAGER Narrative [facility] - 07/01/2019 1:45 PM CATALOGUE AND SPECIAL PRODUCTS MANAGER Date of Service: ??06/28/2019 Pre-operative Diagnosis: ??R19.7, [...] entirely in block C. (CPT Code: ?? 48696 x4) Site: ??[facility] ([facility] D: ??06/28/2019 02:39 PM #[id number] T: ??06/28/2019 02:53 PM /NTS A copy [...] ??tissue and dense lymphocytic infiltration. ?? Site: ??[facility] ([facility]) D: ??07/01/2019 11:49 AM #[id number] T: ??07/01/2019 01:10 PM /NTS us Stoney Johns MD PATHOLOGY/CYTOLOGY ORDERABLES Fi nal Result Performing Organization Address City/[facility]/ZIP Co de Phone Number [facility] [address] [place] [address], [place] [phone] * CHORIONIC GONADOTROPIN HCG QL (06/28/2019 9:50 AM CATALOGUE AND SPECIAL PRODUCTS MANAGER) PREG SCREEN-SERUM NEGATIVE NEGATIVE 06/28/2019 10:11 AM CATALOGUE AND SPECIAL PRODUCTS MANAGER [facility] 06/28/2019 9:50 AM CATALOGUE AND SPECIAL PRODUCTS MANAGER us Stoney Johns MD LABORATORY Final Result Performing Organization Address [facility]/ZIP Co de Phone Number [facility] [address] [place] [address], [place] [phone] documented in this encounter Visit Diagnoses Not on filedocumented in this encounter Administered Medications Inactive Administered Medications - up to 3 most recent administrations Medication Order MAR Action Action Date Dose Rate Site lactated ringers infusion at 10 mL/hr, Intravenous, Continuous, Starting on Mon06/28/19 at 0945, Until Mon06/28/19 at 1451, Infuse at TKO rate, Pre-Op New Bag 06/28/2019 9:51 AM CATALOGUE AND SPECIAL PRODUCTS MANAGER 10 mL/hr documented in this encounter Active and Recently Administered Medications Times are shown in CATALOGUE AND SPECIAL PRODUCTS MANAGER. Continuous Medication Order 06/26/2019 06/27/2019 06/28/2019 lactated ringers infusion at 10 mL/hr, Intravenous, Continuous, Starting on Mon06/28/19 at 0945, Until Mon06/28/19 at 1451, Infuse at TKO rate, Pre-Op 0951 (New Bag - Prov ider: Humera Mcgee RN)1128 (Infusion Stop Time - Provider: Dianna Major CRNA) documented in this encounter
--- OUTSIDE RECORDS SUMMARY | 2024-06-08 07:56 | XMS_ITS | Encounter Summary ---
Author Organization [facility] Address [address] [place] [address]. [place] [address] [place] [address] Care Team Providers Care Tufter Hand Name Role Phone Unavailable Primary Care Provider Unavailabl e Reason for Visit * Reason Onset Date Comments Pain 07/08/2019 Encounter Details Date Type Department Care Team (Late st Contact Info) Description 07/08/2019 Telephone [facility] Multispecialty Care - [facility] [address] [facility], [address] [place] [address] Seble Ratliff NP 3 [facility]. [address] [place], [place] [phone] Pain Social History Tobacco Use Types Packs/Day Years [...] Progress Notes * Seble Ratliff NP - 07/08/2019 1:12 PM CSTAddended by: SEBLE RATLIFF on: 07/08/2019 01:12 PM Modules accepted: Orders L CONTAINER MAKER * Seble Ratliff NP - 07/08/2019 1:06 PM CST I spoke with Dr. Johns and informed of pt concerns. Notes ok to decrease prednisone to 30 mg daily for next 3 weeks. Called and informed pt of this and to call if any worsening of symptoms. Pt v/u of this. L CONTAINER MAKER * Seble Ratliff NP - 07/08/2019 11:41 AM CST Notes she had 4- 5 days of prednisone use. Notes she has bruising on her knees and on leg, muscle aches more in back than usual. The aches were all over but is improved today. Slight constipation with firmer stool with some cramping prior to daily. No other symptoms. Pt is concerned this was due prednisone use. I informed her I would discuss with Dr. Johns and call her back. L CONTAINER MAKER * Kaitlynn Healy - 07/08/2019 8:29 AM CST Patient does not know if she is having a side effect to the medication, (Prednisone), that she was given..For about a week now, she feels like her body is very achy. Her muscles hurt everywhere, and there are bruises on her knees and legs. She was told not to stop taking the medication, once she started it, but has concerns with the bruising and muscle aches. Please call patient regarding. L CONTAINER MAKER documented in this encounter Plan of Treatment Upcoming Encounters Date Type Department Care Team (Late st Contact Info) Description 08/21/2024 4:00 PM CDT Office Visit [facility] Family Medicine - [place] [address] [place] [address] Charla Campos PA-C [address] [place] [address] documented as of this encounter Visit Diagnoses Diagnosis Bloody diarrhea- Primary Diarrhea Ulcerative pancolitis without complication (CMS/HCC HHS/HCC) documented in this encounter
--- OUTSIDE RECORDS SUMMARY | 2024-06-08 07:56 | XMS_ITS | Encounter Summary ---
Author Organization [facility] Address [facility] [facility] [place] [address] [place] [address] Care Team Providers Care Cotton Jammer Name Role Phone Unavailable Primary Care Provider Unavailabl e Encounter Details Date Type Department Care Team (Latest Contact Info) Description 06/20/2019 Scan HEALTH INFO SRVCS Scanned, Documents Social [...] [facility] Family Medicine - [place] [address] [place] [phone] Charla Campos PA-C [address] [place] [address] documented as of this encounter Visit Diagnoses Not on filedocumented in this encounter
--- OUTSIDE RECORDS SUMMARY | 2024-06-08 07:56 | XMS_ITS | Encounter Summary ---
Author Organization [facility] Address [address] [place] [address]. [place] [address] [place] [address] Care Team Providers Care Sand Hauler Name Role Phone Unavailable Primary Care Provider Unavailabl e Encounter Details Date Type Department Care Team (Latest Contact Info) Description 07/23/2019 4:38 PM PRESSER MACHINE - 07/23/2019 11:59 PM [facility] Hospital Encounter [facility] Laboratory [place], [place] [id number] Seble Bliss, JORI [address] [facility]. [address] [place], [place] [phone] Discharge Disposition: Home or Self Care (Routine [...] this encounter Medications at Time of Discharge azathioprine 50 MG tabletIndications:Ulc erative pancolitis without complication (CMS/HCC HHS/HCC) Take 1 tablet (50 mg total) by mouth daily. 30 tablet 6 07/10/2019 0 cetirizine 10 MG tablet Take 10 mg [...] 2 Levocetirizine Dihydrochloride (XYZAL OR) 1 predniSONE 5 mg tabletIndications:Ulc erative pancolitis without complication (CMS/HCC HHS/HCC) Please start at 10 mg x 2 weeks then 5 mg x 2 weeks and discontinue. 42 tablet 07/22/2019 1 documented as of this encounter Progress Notes * Seble Bliss NP - 07/24/2019 3:23 PM CST Patient was informed of her hepatic panel as well as CBC findings. Patient does wish to pursue Humira citrate free formula biologic. SER MACHINE documented in this encounter Plan of Treatment Upcoming Encounters Date Type Department Care Team (Late st Contact Info) Description 08/21/2024 4:00 PM CDT Office Visit [facility] Family Medicine - [place] [address] [place] [address] Charla Campos PA-C [address] [facility] [place] [address] documented as of this encounter Procedures Procedure Name Priority Date/Time Associated Diagnosis Comments HEPATIC FUNCTION PANEL Routine 07/23/2019 4:45 PM PRESSER MACHINE Ulcerative pancolitis without complication (CMS/HCC HHS/HCC) CBC W/DIFF AUTOMATED Routine 07/23/2019 4:45 PM PRESSER MACHINE Ulcerative pancolitis without complication (CMS/HCC HHS/HCC) documented in this encounter Results * (ABNORMAL) CBC W/DIFF AUTOMATED (07/23/2019 4:45 PM PRESSER MACHINE) WBC 14.5(H) 4.5 - 11.0 x10'3/uL 07/23/2019 5:22 PM [facility] RBC 4.76 4.20 - 5.40 x10'6/uL 07/23/2019 5:22 PM [facility] HGB 13.5 12.0 - 16.0 G/DL 07/23/2019 5:22 PM [facility] HCT 41.5 38.0 - 48.0 % 07/23/2019 5:22 PM [facility] MCV 87.2 81.0 - 99.0 FL 07/23/2019 5:22 PM [facility] MCH 28.4 27.0 - 31.0 PG 07/23/2019 5:22 PM [facility] MCHC 32.5 32.0 - 36.0 G/DL 07/23/2019 5:22 PM [facility] RDW 13.3 11.5 - 14.5 % 07/23/2019 5:22 PM [facility] PLT 271 130 - 400 x10'3/uL 07/23/2019 5:22 PM [facility] MPV 9.8 9.3 - 12.2 FL 07/23/2019 5:22 PM [facility] DIFFERENTIAL TYPE AUTOMATED DIFFERENTIAL 07/23/2019 5:22 PM [facility] NEUTROPHILS % 57.0 % 07/23/2019 5:22 PM [facility] LYMPHOCYTES % 28.8 % 07/23/2019 5:22 PM [facility] MONOCYTES % 9.0 % 07/23/2019 5:22 PM [facility] EOSINOPHILS 3.9 % 07/23/2019 5:22 PM [facility] BASOPHILS 0.7 % 07/23/2019 5:22 PM [facility] IMMATURE GRANS % 0.6 % 07/23/19 5:22 PM [facility] ABS. NEUTROPHILS TOTAL 8.27(H) 1.80 - 7.70 x10'3/uL 07/23/2019 5:22 PM [facility] ABS. LYMPHOCYTES 4.18 1.00 - 4.80 x10'3/uL 07/23/2019 5:22 PM [facility] ABS. MONOCYTES 1.30(H) 0.24 - 0.86 x10'3/uL 07/23/2019 5:22 PM [facility] ABS. EOSINOPHILS 0.56(H) 0.04 - 0.36 x10'3/uL 07/23/2019 5:22 PM [facility] ABS. BASOPHILS 0.10(H) 0.01 - 0.08 x10'3/uL 07/23/2019 5:22 PM [facility] ABS. IMMATURE GRANULOCYTES 0.09 0.00 - 0.49 x10'3/uL 07/23/2019 5:22 PM [facility] 07/23/2019 4:45 PM PRESSER MACHINE us Seble Bliss NP LABORATORY Final Result [facility] [address] [place] [address], [place] [phone] * (ABNORMAL) HEPATIC FUNCTION PANEL (07/23/2019 4:45 PM PRESSER MACHINE) TOTAL PROTEIN S/P/B 7.8 6.4 - 8.2 G/DL 07/23/2019 5:49 PM PRESSER MACHINE [facility] ALBUMIN S/P/B 3.6 3.4 - 5.0 G/DL 07/23/2019 5:49 PM [facility] BILIRUBIN TOTAL S/P/B 0.3 0.2 - 1.2 MG/DL 07/23/2019 5:49 PM [facility] BILIRUBIN DIRECT S/P/B <0.1 0.0 - 0.20 MG/DL 07/23/2019 5:49 PM [facility] BILIRUBIN INDIRECT S/P/B NOT CALCULATED 0.0 - 0.9 MG/DL 07/23/2019 5:49 PM [facility] ALKALINE PHOSPHATASE S/P/B 74 50 - 136 U/L 07/23/2019 5:49 PM [facility] AST 13(L) 15 - 37 U/L 07/23/2019 5:49 PM [facility] ALT 14 14 - 55 U/L 07/23/2019 5:49 PM [facility] A/G RATIO 0.9(L) 1.0 - 2.0 RATIO 07/23/2019 5:49 PM [facility] 07/23/2019 4:45 PM PRESSER MACHINE Seble Bliss NP LABORATORY Final Result [facility] [address] [place] [address], documented in this encounter Visit Diagnoses Diagnosis Ulcerative pancolitis without complication (CMS/HCC HHS/HCC) documented in this encounter
--- OUTSIDE RECORDS SUMMARY | 2024-06-08 07:57 | XMS_ITS | Encounter Summary ---
Author Organization [facility] Address [facility] [place] [address] [place] [address] Care Team Providers Care Director Of Fundraising Name Role Phone Unavailable Primary Care Provider Unavailabl e Reason for Visit * Reason Comments Hematochezia blood in stool; pt a lso is having adominal pain which is causing her to lose sleep * Consultation/Treatment (Routine) - Closed Specialty Diagnoses / Procedures Referred By Contact Referred To Contact NURSE PRACTITIONER / GASTROENTEROLOGY Diagnoses hospital follow up Procedures NEW PATIENT Karson Payne MD [address] [facility] [address] [place] [address] Phone: tel: fax: Seble Bliss NP [address] [facility] [address] [place] [address] Phone: tel:[phone] fax:[phone] Referral ID Status Reason Start Date Expiration Date Visits Re quested Visits Authorized [id number] Closed 12/24/2018 01/25/2020 100 100 Encounter Details Date Type Department Care Team (Latest Contact Info) Description 06/19/2019 8:00 AM COMFORT STATION SUPERVISOR Office Visit [facility] Medical Group Multispecialty Care - [facility] [address] [facility] [address] [place] [phone] Seble Bliss NP [address] [facility] [address] [place], [place] [id number] Hematochezia (blood in stool; pt also is having adominal pain which is causing her to lose sleep) Social History Tobacco Use Types Packs/Day Years [...] Sign Reading Time Taken Comments Blood Pressure 114/84 06/19/2019 8:29 AM COMFORT STATION SUPERVISOR Pulse 78 06/19/2019 8:29 AM COMFORT STATION SUPERVISOR Temperature 36.7 ??C (98 ??F) 06/19/2019 8:29 AM COMFORT STATION SUPERVISOR Respiratory Rate 18 06/19/2019 8:29 AM COMFORT STATION SUPERVISOR Oxygen Saturation - - Inhaled Oxygen Concentration - - Weight 131.5 kg (290 lb) 06/19/2019 8:29 AM COMFORT STATION SUPERVISOR Height 177.8 cm (5' 10 ) 06/19/2019 8:29 AM COMFORT STATION SUPERVISOR Body Mass Index 41.61 06/19/2019 8:29 AM COMFORT STATION SUPERVISOR documented in this encounter Patient Instructions * Patient Instructions* Seble Bliss NP - 06/19/2019 8:00 AM COMFORT STATION SUPERVISOR Images from the original note were not included. Patient Education Patient Education Colonoscopy Why is this procedure done? Colonoscopy is done so your doctor can see the inside of your large intestines, also called your colon, and your rectum. It uses a lighted tube called a scope, which has a tiny camera that can be moved through the large intestine. This may be done to: ?? Check for colon cancer or growths called polyps ?? Look for the source of rectal bleeding ?? Find the cause of changes in your bowel movements ?? Find the cause of belly or rectal pain ?? Check results from other tests ?? Check your response to treatment for other diseases ?? Learn about weight loss What happens before the procedure? ?? Your doctor will ask you about your health history and do an exam. The doctor may order tests for your stool. Talk to the doctor about ? All the drugs you are taking. Be sure to include all prescription and vank-vne-niycfpp (OTC) drugs, and herbal supplements. Tell the doctor about any drug allergy. Bring a list of drugs you take with you. ? Any bleeding problems. Be sure to tell your doctor if you are taking any drugs that may cause bleeding. Some of these are Coumadin, ibuprofen, Aleve (naproxen), or aspirin. Certain vitamins and herbs, such as garlic and fish oil, may also add to the risk for bleeding. You may need to stop these drugs as well. Talk to your doctor about them. ?? The colon needs to be cleaned out before this test. Your doctor will tell you to take drugs thatwill cause watery loose stools. These may be liquids, pills, or both. You may need to take these the day before and the day of your test. ?? You will be placed on a clear liquid diet the day before the exam and you will need to only haveclear liquids until the test is done. Clear liquids include water, sports drinks, broth, soft drinks, and juices, but avoid anything that is red or purple in color. Do not drink alcohol. ?? Your doctor may ask you not to eat or drink any food other than the drugs or liquids that clean out your colon. ?? You will not be allowed to drive after the procedure. Ask a family member or a friend to drive you home and stay with you. What happens during the procedure? ?? The staff will put an IV in your arm to give you fluids and drugs. You may be given a drug to make you sleepy. ?? You will lie on your side with your knees bent and pulled up toward your chest. ?? The doctor will use a small thin tube, called a scope, with a light and a camera on it. The tubeis put into your anus and moved through your rectum and into the large intestine or colon. ?? Small amounts of air are put into your colon. The camera lets your doctor look at the lining of your colon. ?? Your doctor may take small tissue samples and remove small growths. ?? The tube is then taken out. ?? The procedure may take 30 to 45 minutes. What happens after the procedure? ?? You will go to a recovery area and the staff will watch you closely. ?? You can go home and rest after your procedure. ?? You may feel groggy. ?? You should be able to eat your usual diet after the test. ?? You will have gas and you may have mild cramping. This is normal. ?? A small amount of bleeding may happen during the first few days after your procedure. ?? If tissue was removed, it will be sent to a lab to be checked. Your doctor will tell you the results after a week or two. What problems could happen? ?? Tear inside your colon ?? Bleeding can happen for a few days afterwards Where can I learn more? [employer] https://www.cancer.org/cancer/lbbms-nruxpp-zflfrv/zoykpggwc-ggjlnbqkh-cborvje/sc nnclgsp-lgjjj-utgb.html [employer] Society of Clinical Oncology https://www.cancer.net/pbkxjdlavd-nrctzz-ldli/diagnosing-cancer/hewwk-zky-zsypre ures/colonoscopy National Digestive Diseases Information Clearinghouse http://digestive.niddk.nih.gov/ddiseases/pubs/colonoscopy/ Last Reviewed Date 2018-08-07 Consumer Information Use and Disclaimer This information [...] right for you. Copyright Copyright ?? 2019 [employer]. and its affiliates and/or licensors. All rights reserved. ORT STATION SUPERVISOR documented in this encounter Progress Notes * Seble Bliss NP - 06/19/2019 8:00 AM CST Images from the original note were not included. Gastroenterology Established Visit Reason for Visit: Hematochezia (blood in stool; pt also is having adominal pain which is causing her to lose sleep) History of Present Illness: NCIOLE Zavaleta is a 23-year-old female being seen in clinic for referral by Karson Payne MD [facility] room follow-up for complaints of nausea and [...] and texture. Patient has used Pepto-Bismol and xete-qpu-flfaznh antidiarrheal medication with not much effect on [...] abdomen. 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 ?? Prior abdominal surgeries: none. No colonoscopies [...] and is [facility] Negative for dizziness and headaches. Endo/Heme/Allergies: Does not bruise/bleed easily. Psychiatric/Behavioral: Positive for depression (Slight ). The patient is not nervous/anxious. Family in [place]. ?? Medications: Current Outpatient Medications: ??? desogestrel-ethinyl [...] months. Patient has attempted to use Pepto-Bismol, fqiz-hil-oocpjib antidiarrheal pills with minimal effects and one [...] were discussed with the patient and/or family/personal pharmacy sales representative. Risks can include but are not limited to: discomfort, missing lesions, allergic or adverse reaction to the sedative, perforation of the bowel which may require hospitalization and surgery, bleeding, infection, aspiration, and evendeath. Questions were answered and the patient/family/personal pharmacy sales representative verbalized understanding anddesires to proceed. Seble Bliss NP 06/19/2019 ORT STATION SUPERVISOR documented in this encounter Plan of Treatment Upcoming Encounters Date Type Department Care Team (Late st Contact Info) Description 08/21/2024 4:00 PM CDT Office Visit [facility] Medical Group Family Medicine - [place] [address] [place] [phone] Charla Campos PA-C [address] [place] [phone] documented as of this encounter Visit Diagnoses Diagnosis Chronic diarrhea- Primary Diarrhea Bloody diarrhea Diarrhea Generalized abdominal pain Abdominal pain, generalized documented in this encounter
--- OUTSIDE RECORDS SUMMARY | 2024-06-08 07:58 | XMS_ITS | Encounter Summary ---
Author Organization [facility] Address [address] [place] [address]. [place], [place] [address] [place] [address] Care Team Providers Care Solar Designer Name Role Phone Unavailable Primary Care Provider Unavailabl e Reason for Visit * Reason Onset Date Comments Follow Up Call 06/18/2019 stomach hurting all the time and medication not working pt stated Encounter Details Date Type Department Care Team (Late st Contact Info) Description 06/18/2019 Telephone [facility] Medical Group Multispecialty Care - [facility] [address] [facility], [address] [place] [address] Omar Johns MD [address] [facility] [address] [place] [address] Follow Up Call (stomach hurting all the time and medication not working pt stated) Social History Tobacco Use Types Packs/Day Years [...] Progress Notes * Seble Ratliff NP - 06/18/2019 2:10 PM CSTAddended by: SEBLE RATLIFF on: 06/18/2019 02:10 PM Modules accepted: Orders E AIDE * Seble Ratliff NP - 06/18/2019 1:50 PM CST Pt called and notes she was originally doing well on her dicyclomine however over the last several months she notes that she has had anywhere from 10-20 bowel movements per day and has not been usingthe dicyclomine as she states that it stopped working for her. She was very frustrated on the phoneabout why this is continuing. She does not feel it is diet related and does note she has blood in her stool. Patient notes she did not realize that she could give us a call to discuss these symptoms.When she did call and she was told that she would have to be a new patient. The call was forwarded to me as patient was upset. I informed patient I could get her in at 8 AM in the morning to further discuss her symptoms. I have not seen or received a call from patient since November 2018. I informed her that I would order stool studies for her today if she could come in to have performed. She notes she works until 2200 today. E AIDE * Alee Hein - 06/18/2019 12:46 PM CST Pt called saying that her problems have gotten worse. She stated that she has to go to the bathroomevery 20 minutes and her stomach has been hurting all the time. She said the medication that we have given her does not work. She asked to please give her a call. E AIDE documented in this encounter Plan of Treatment Upcoming Encounters Date Type Department Care Team (Late st Contact Info) Description 08/21/2024 4:00 PM CDT Office Visit [facility] Medical Group Family Medicine - [place] [address] [place] [phone] Charla Campos PA-C [address] [place] [address] [place] [address] documented as of this encounter Results * O&P CONC&SMEAR TO REF LAB (06/19/2019 10:07 AM RANGE AIDE) SPECIMEN SOURCE STOOL 0 10:08 AM RANGE AIDE [facility] O & P EXAMINATION (STOOL) REPORT 06/26/2019 7:53 PM RANGE AIDE [employer] Comment: Ova and Parasites, Concentrate and Permanent Smear Examination for Ova and Parasites SOURCE : STOOL Result/Comment: NO OVA AND PARASITES SEEN. Reference Range: ??No Ova and Parasites seen Routine Ova and Parasite Exam may not detect some parasites that occasionally cause diarrheal illness. Test code(s) 20295T[24514](Cryptosporidium Ag, DFA) and/or 35348D[06615] (Cyclospora and Isospora Exam) may be ordered to detect these parasites. One negative sample does not necessarily rule out the presence of a parasitic infection. Assay performed by wet mount after concentration. Parasite Exam, Trichrome Stain SOURCE : STOOL Result/Comment: NO OVA AND PARASITES SEEN. Routine Ova and Parasite Exam may not detect some parasites that occasionally cause diarrheal illness. Test code(s) 44522N[45323](Cryptosporidium Ag, DFA) and/or 27974S[99531] (Cyclospora and Isospora Exam) may be ordered to detect these parasites. One negative sample does not necessarily rule out the presence of a parasitic infection. For additional information, please refer to https://education.EntrenaYa.Linux Voice/faq/OUZ247 (This link is being provided for informational/ educational purposes only.) Test Performed by [employer], [employer] [facility], [address] [place] [address] José Antonio Mart M.D., Ph.D., Director of Laboratories , CLIA [id number] STOOL SPECIMEN / Unknown 06/19/2019 10:07 AM RANGE AIDE Seble Ratliff NP MICROBIOLOGY - GENERAL ORDERABLE S Final Result [facility] [address] [place] [address], [place] [phone] [facility] [address] [place] [address], [place] [phone] * CLOSTRIDIUM DIFFICILE (06/19/2019 10:07 AM RANGE AIDE) MOLECULAR ASSAY NEGATIVE NEGATIVE 06/19/2019 12:08 PM RANGE AIDE [facility] Comment: NOTE: C. difficile molecular tests are highly sensitive. ??Empiric therapy for patients with diarrhea and negative C. difficile test should be avoided. ?? Submission of more than one specimen within 7 days is not recommended. ?? Molecular tests for C. difficile are highly sensitive and a negative result does not need to be confirmed by a second specimen. STOOL SPECIMEN / Unknown 06/19/2019 10:07 AM RANGE AIDE Seble Ratliff INVENTORY CONTROL PLANNER BODY FLUIDS AND STOOLS ORDERABLE S Final Result [facility] [address] [place] [address], [place] [phone] * GIARDIA AG, STOOL (06/19/2019 10:07 AM RANGE AIDE) GIARDIA ANTIGEN (STOOL) NEGATIVE NEGATIVE 06/19/2019 11:42 AM RANGE AIDE [facility] STOOL SPECIMEN / Unknown 06/19/2019 10:07 AM RANGE AIDE Seble Ratliff INVENTORY CONTROL PLANNER BODY FLUIDS AND STOOLS ORDERABLE S Final Result [facility] [address] [place] [address], [place] [phone] * CRYPTOSPORIDUM AG, STOOL (06/19/2019 10:07 AM RANGE AIDE) CRYPTOSPOR AG (STOOL) NEGATIVE NEGATIVE 06/19/2019 11:42 AM RANGE AIDE [facility] STOOL SPECIMEN / Unknown 06/19/2019 10:07 AM RANGE AIDE us Seble Ratliff INVENTORY CONTROL PLANNER BODY FLUIDS AND STOOLS ORDERABLE S Final Result Performing Organization Address [facility]/ZIP Co de Phone Number [facility] [address] [place] [address], [place] [phone] * Stool Culture (06/19/2019 10:07 AM RANGE AIDE) SPEC DESCRIPTION STOOL 06/19/2019 10:08 AM [facility] SPECIAL REQUESTS NO SPECIAL REQUEST 06/19/2019 10:08 AM [facility] CULTURE RESULT NEGATIVE FOR SHIGA TOXIN 1 AND 2 06/22/2019 7:31 AM [facility] CULTURE RESULT NO ENTERIC PATHOGENS ISOLATED 06/22/2019 7:31 AM [facility] CULTURE RESULT NOTE: STOOL CULTURES ARE ROUTINELY SCREENED FOR SALMONELLA,SH IGELLA,YERSIN IA,AEROMONAS, PLESIOMONAS,C AMPYLOBA CTER,E.COLI 0157,OVERGROW THS OF S.AUREUS,YEAS T AND P. AERUGINOSA 06/22/2019 7:31 AM [facility] Stool specimen (specimen) STOOL SPECIMEN / Unknown 06/19/2019 10:07 AM RANGE AIDE 06/19/2019 10:14 AM RANGE AIDE us Seble Ratliff NP MICROBIOLOGY - GENERAL ORDERABLE S Final Result Performing Organization Address City/[facility]/ZIP Co de Phone Number [facility] [address] [place] [phone], * (ABNORMAL) STOOL FOR WBC (06/19/2019 10:07 AM RANGE AIDE) STOOL WBC LACTOFERRIN POSITIVE( A) NEGATIVE 06/19/2019 11:42 AM RANGE AIDE [facility] STOOL SPECIMEN / Unknown 06/19/2019 10:07 AM RANGE AIDE Seble Ratliff NP BODY FLUIDS AND STOOLS ORDERABLE S Final Result [facility] [address] [place] [address], documented in this encounter Visit Diagnoses Diagnosis Chronic diarrhea- Primary Diarrhea documented in this encounter
--- OUTSIDE RECORDS SUMMARY | 2024-06-08 07:58 | XMS_ITS | Encounter Summary ---
Author Organization [facility] Address [address] [place] [address]. [place] [address] [place] [address] Care Team Providers Care Compressor Mechanic Bus Name Role Phone Unavailable Primary Care Provider Unavailabl e Reason for Visit * Reason Onset Date Comments Medication Request 05/08/2019 Encounter Details Date Type Department Care Team ([facility] st Contact Info) Description 05/08/2019 Telephone [facility] [address] [facility] [address] [place] [address] Karson Payne MD [address] [facility] [address] [place] [address] Medication Request Social History Tobacco Use Types [...] as of this encounter Progress Notes * Sarah Mukherjee RN - 05/16/2019 1:54 PM CST Med update. Order in [employer]. SERVICE TRAY ATTENDANT * Sarah Mukherjee RN - 05/16/2019 1:54 PM CSTAddended by: SARAH MUKHERJEE on: 05/16/2019 01:54 PM Modules accepted: Orders SERVICE TRAY ATTENDANT * Edwin Caicedo MD - 05/16/2019 1:06 PM CST ok SERVICE TRAY ATTENDANT * Mora Valentin RN - 05/16/2019 12:29 PM CST Pt called to say the med refill of Divalproex was incorrect it should be 125mg sprinkle 3 in the am and 4 in the evening Total 7 tablets She has not picked up med yet She has a referral to Dr Frost Ok to change directions? She is low on meds pchy WM OF ncb - [phone] SERVICE TRAY ATTENDANT SERVICE TRAY ATTENDANT * Karson Payne MD - 05/08/2019 4:55 PM CST yes SERVICE TRAY ATTENDANT * Sakshi Ellsworth RN - 05/08/2019 4:46 PM CST Pt appt with Dr Frost is 06/21/18. Asking if you will fill her divalproex DR sprinkle 125mg caps bid? alfredo DOMINIQUEB if problem [phone] SERVICE TRAY ATTENDANT documented in this encounter Plan of Treatment Upcoming Encounters Date Type Department Care Team (Late st Contact Info) Description 08/21/2024 4:00 PM CDT Office Visit [facility] Medical Group Family Medicine - [place] [phone] Charla Campos PA-C [address] [place] [phone] documented as of this encounter Visit Diagnoses Diagnosis Seizure disorder ([facility]/HCC [facility]/HCC)- Primary Unspecified epilepsy without mention of intractable epilepsy documented in this encounter
--- OUTSIDE RECORDS SUMMARY | 2024-06-08 07:58 | XMS_ITS | Encounter Summary ---
Author Organization [facility] Address [address] [place] [address]. [place], [place] [address] [place] [address] Care Team Providers Care Home Service Technician Name Role Phone Unavailable Primary Care Provider Unavailabl e Reason for Visit * Reason Onset Date Comments Appointment Request 06/11/2019 Encounter Details Date Type Department Care Team (Late st Contact Info) Description 06/11/2019 Telephone [facility] Medical Group Multispecialty Care - [facility] [address] [facility], [address] [place] [address] Omar Johns MD [address] [facility] [address] [place] [address] Appointment Request Social History Tobacco Use Types [...] encounter Progress Notes * Xochitl Escobedo - 06/11/2019 2:47 PM CST Spoke with patient appt scheduled. LE BLOWING MACHINE TENDER * Carla Arndt - 06/11/2019 1:56 PM CST Excessive pooping, blood, stomach pain like sudden urgency to defecate. Medication she was given isnot helping. Would like a nurse to call her and see if she can get an appt soon. She is also wakingup every few hours to defecate. LE BLOWING MACHINE TENDER documented in this encounter Plan of Treatment Upcoming Encounters Date Type Department Care Team (Late st Contact Info) Description 08/21/2024 4:00 PM CDT Office Visit [facility] Medical Group Family Medicine - [place] [address] [place] [phone] Charla Campos PA-C [address] [place] [phone] documented as of this encounter Visit Diagnoses Not on filedocumented in this encounter
--- OUTSIDE RECORDS SUMMARY | 2024-06-08 07:59 | XMS_ITS | Encounter Summary ---
Author Organization [facility] Address [address] [place] [address]. [place] [address] [place] [address] Care Team Providers Care Molded Frames Assembler Name Role Phone Unavailable Primary Care Provider Unavailabl e Encounter Details Date Type Department Care Team (Late Contact Info) Description 05/07/2019 7:35 AM DIRECTOR DIGITAL ADVERTISING Laboratory Only [facility] [address] [facility] [address] [place] [address] Social History Tobacco Use Types [...] Progress Notes * Karson Payne MD - 05/08/2019 9:07 AM CST Has elevated TSH. Obtain a free T4 and free T3. Diagnosis: hypothyroidism CTOR DIGITAL ADVERTISING documented in this encounter Plan of Treatment Upcoming Encounters Date Type Department Care Team (Late Contact Info) Description 08/21/2024 4:00 PM CDT Office Visit [facility] Family Medicine - [place] [phone] Charla Campos PA-C [address] [facility] [place] [address] documented as of this encounter Procedures Procedure Name Priority Date/Time Associated Diagnosis Comments TSH W/REFLEX Routine 05/07/2019 7:48 AM DIRECTOR DIGITAL ADVERTISING Fatigue, unspecified type COMPREHENSIVE METABOLIC PANEL Routine 05/07/2019 7:48 AM DIRECTOR DIGITAL ADVERTISING Fatigue, unspecified type LIPID PANEL Routine 05/07/2019 7:48 AM DIRECTOR DIGITAL ADVERTISING Fatigue, unspecified type CBC W/DIFF AUTOMATED Routine 05/07/2019 7:48 AM DIRECTOR DIGITAL ADVERTISING Fatigue, unspecified type COLLECTION VENOUS BLOOD VENIPUNCTURE Routine 05/07/2019 7:47 AM DIRECTOR DIGITAL ADVERTISING Fatigue, unspecified type documented in this encounter Results * (ABNORMAL) CBC W/DIFF AUTOMATED (05/07/2019 7:48 AM DIRECTOR DIGITAL ADVERTISING) WBC 13.2(H) 3.6 - 10.2 K/CU [facility] RBC 5.0 4.1 - 5.3 M/CU [facility] HGB 14.5 11.9 - 15.8 GM/DL [facility] HCT 45.0 37.4 - 48.3 [facility] MCV 90 82 - 99 [facility] MCH 29 27 - 33 [facility] MCHC 32 32 - 36 [facility] PLT 281 150 - 450 K/CU MM [facility] MPV 10.6 9.8 - 12.7 [facility] RDW CALCULATED 13 11 - 15 [facility] NEUTROPHILS % 53 37 - 72 [facility] ABS. LYMPHOCYTES 33 16 - 48 [facility] ABS. MONOCYTES 10 4 - 14 [facility] ABS. EOSINOPHILS 3 0 - 9 [facility] BASOPHILS 1 0 - 2 [facility] NRBC 0.00 0.00 - 0.00 /100 WBC [facility] ABS. NEUTROPHILS 7.0(H) 1.1 - 6.0 K/CU [facility] LYMPHOCYTES 4.3(H) 0.7 - 3.4 K/CU [facility] ABS. MONOCYTES 1.3(H) 0.3 - 1.0 K/CU [facility] EOSINOPHILS 0.4 0.0 - 0.6 K/CU MM [facility] ABS. BASOPHILS 0.1 0.0 - 0.1 K/CU [facility] ABS. NUCLEATED RBC'S 0.0 0.0 - 0.0 X10'3/UL [facility] AUTO % IMMATURE GRANULOCYTES 0 % [facility] AUTO ABS IMMATURE GRANULOCYTES 0.1 X10'3/UL [facility] 05/07/2019 7:48 AM DIRECTOR DIGITAL ADVERTISING 05/08/2019 4:46 AM DIRECTOR DIGITAL ADVERTISING Narrative [facility] - 05/08/2019 5:23 AM DIRECTOR DIGITAL ADVERTISING REPORT: [id number] us Karson Payne MD LABORATORY Final Resul t Performing Organization Address City/[facility] [place] [address], * (ABNORMAL) TSH W/REFLEX (05/07/2019 7:48 AM DIRECTOR DIGITAL ADVERTISING) TSH 8.29(H) 0.30 - 5.00 MCIU/ML [facility] 05/07/2019 7:48 AM DIRECTOR DIGITAL ADVERTISING 05/08/2019 4:46 AM DIRECTOR DIGITAL ADVERTISING [facility] 05/08/2019 7:48 AM DIRECTOR DIGITAL ADVERTISING REPORT: [id number] us Karson Payne MD LABORATORY Final Resul t Performing Organization Address [facility] [place] [address], * (ABNORMAL) LIPID PANEL (05/07/2019 7:48 AM DIRECTOR DIGITAL ADVERTISING) CHOLESTEROL 163 0 - 199 MG/DL [facility] TRIGLYCERIDES 173(H) 0 - 149 MG/DL [facility] HDL 38(L) 50 - 240 MG/DL [facility] LDL (CALCULATED) 90 0 - 99 MG/DL [facility] CHOL/HDL RATIO 4.3 [facility] NON HDL CHOLESTEROL 125 0 - 129 MG/DL [facility] Comment: FOR AGES >=20 YEARS (MG/DL) .................IDEAL....ELEVATED....BORDERLINE......HIGH.....VERY HIGH CHOL*........<200.......................................200-239....>=240 TRIG...........<150.....................150-199......200-499....>=500 LDL-C.......<100...100-129.....130-159......160-189....>=190 NONHDL-C.<130...130-159.....160-189......190-219....>=220 JASON TA, ET AL. NATIONAL LIPID ASSOCIATION RECOMMENDATIONS FOR PATIENT-CENTERED MANAGEMENT OF DYSLIPIDEMIA: PART 1-FULL REPORT. ??J CLIN LIPIDOL 2015;129-169. *THIRD REPORT OF THE NATIONAL CHOLESTEROL EDUCATION PROGRAM (NCEP) EXPERT PANEL ON DETECTION, EDUCATION, AND TREATMENT OF HIGH BLOOD CHOLESTEROL IN ADULTS (ADULT TREATMENT PANEL III): FINAL REPORT. CIRCULATION 2002; 106:3143. 05/07/2019 7:48 AM DIRECTOR DIGITAL ADVERTISING 05/08/2019 4:46 AM DIRECTOR DIGITAL ADVERTISING Narrative [facility] - 05/08/2019 7:48 AM DIRECTOR DIGITAL ADVERTISING REPORT: [id number] IS PATIENT FASTING?->YES us Karson Payne MD LABORATORY Final Resul t [facility] [address] [place] [address], [place] [phone] * (ABNORMAL) COMPREHENSIVE METABOLIC PANEL (05/07/2019 7:48 AM DIRECTOR DIGITAL ADVERTISING) [facility] GLUCOSE 82 70 - 99 MG/DL [facility] BUN 12 6 - 20 MG/DL [facility] CREATININE S/P/B 0.7 0.5 - 1.2 MG/DL [facility] EGFR AFR. AMER. 136 60 - 300 ML/MIN/1.7 3 M2 [facility] EGFR NON-AFR. AMER. 112 60 - 300 ML/MIN/1.7 3 M2 [facility] SODIUM S/P/B 140 136 - 145 MEQ/L [facility] POTASSIUM S/P/B 4.4 3.5 - 5.3 MEQ/L [facility] CHLORIDE S/P/B 102 98 - 107 MEQ/L [facility] CO2 23 23 - 31 MEQ/L [facility] ANION GAP 15 8 - 16 MMOLES/L [facility] CALCIUM S/P/B 9.4 8.4 - 10.5 MG/DL [facility] TOTAL PROTEIN S/P/B 7.1 6.0 - 8.3 GM/DL [facility] ALBUMIN S/P/B 4.1 3.5 - 5.0 GM/DL [facility] AST 12 11 - 32 IU/L [facility] ALT <5(L) 9 - 43 IU/L [facility] ALKALINE PHOSPHATASE S/P/B 53 35 - 129 IU/L [facility] BILIRUBIN TOTAL S/P/B 0.3 0.0 - 1.0 MG/DL [facility] 05/07/2019 7:48 AM DIRECTOR DIGITAL ADVERTISING 05/08/2019 4:46 AM DIRECTOR DIGITAL ADVERTISING Narrative [facility] - 05/08/2019 7:48 AM DIRECTOR DIGITAL ADVERTISING REPORT: [id number] IS PATIENT FASTING?->YES us Karson Payne MD LABORATORY Final Resul t [facility] [address] [place] [address], documented in this encounter Visit Diagnoses Diagnosis Fatigue, unspecified type- Primary documented in this encounter
--- OUTSIDE RECORDS SUMMARY | 2024-06-08 07:59 | XMS_ITS | Encounter Summary ---
Author Organization [facility] Address [facility] [facility] [place] [address] [place] [address] Care Team Providers Care Structural Worker Name Role Phone Unavailable Primary Care Provider Unavailabl e Encounter Details Date Type Department Care Team (Late Contact Info) Description 05/06/2019 Scan [facility] [address] [facility] [address] [place] [phone] Scanned, Documents Social History Tobacco Use Types [...] Description 08/21/2024 4:00 PM CDT [facility] Family [facility] - [place] [address] [place] [phone] Charla Campos PA-C [address] [facility] [place] [address] documented as of this encounter Visit Diagnoses Not on filedocumented in this encounter
--- OUTSIDE RECORDS SUMMARY | 2024-06-08 07:59 | XMS_ITS | Encounter Summary ---
Author Organization [facility] Address [facility] [facility] [place], [place] [address] [place] [address] Care Team Providers Care Warehouse And Receiving Supervisor Name Role Phone Unavailable Primary Care Provider Unavailabl e Reason for Referral * Consultation (Routine) - Closed Specialty Diagnoses / Procedures Referred By Yodit t Referred To Contact NEUROLOGY Diagnoses Seizure disorder ([facility]/HCC [facility]) Monik Fonseca MD [address] [facility] [address] [place] [address] Phone: tel: fax: Isa Frost MD [address] [place] [address] Phone: tel: fax: Referral ID Status Reason Start Date Expiration Date V isits Requested Visits Authorized [id number] Closed Specialty Services 05/06/2019 06/05/2020 1 1 SOFTWARE DEVELOPER Reason for Visit * Reason Comments Establish Care NPPE Encounter Details Date Type Department Care Team (Late st Contact Info) Description 05/06/2019 4:15 PM IT SOFTWARE DEVELOPER Office Visit [facility] [address] [facility] [address] [place] [address] Monik Fonseca MD [address] [facility] [address] [place] [address] Establish Care (NPPE) Social History Tobacco Use Types Packs/Day Years [...] Sign Reading Time Taken Comments Blood Pressure 126/78 05/06/2019 3:52 PM IT SOFTWARE DEVELOPER Pulse 104 05/06/2019 3:52 PM IT SOFTWARE DEVELOPER Temperature - - Respiratory Rate - - Oxygen Saturation - - Inhaled Oxygen Concentration - - Weight 133.8 kg (295 lb) 05/06/2019 3:52 PM IT SOFTWARE DEVELOPER Height 179.1 cm (5' 10.5 ) 05/06/2019 3:52 PM CS T Body Mass Index 41.73 05/06/2019 3:52 PM IT SOFTWARE DEVELOPER documented in this encounter Progress Notes * Kathi Ferrara RN - 05/06/2019 4:15 PM CSTAddended by: KATHI FERRARA on: 05/09/2019 09:04 AM Modules accepted: Orders SOFTWARE DEVELOPER * Monik Fonseca MD - 05/06/2019 4:15 PM CST Reason for Visit: Establish Care (NPPE) History of Present Illness: HEALTH MAINTENANCE The patient is being seen for a health maintenance evaluation. GENERAL HEALTH The patient's health since the last visit is described as good. HPI ROS: Review of Systems Constitutional: Positive for malaise/fatigue. Negative for fever. HENT: Negative for ear pain. Eyes: Negative for pain. Respiratory: Negative for cough and shortness of breath. Cardiovascular: Negative for chest pain, palpitations and leg swelling. Gastrointestinal: Negative for diarrhea, nausea and vomiting. Genitourinary: Negative for dysuria. Musculoskeletal: Negative for myalgias. Neurological: Negative for dizziness. Psychiatric/Behavioral: Negative for depression. Medications: Current Outpatient Medications: ??? desogestrel-ethinyl estradiol (AZURETTE) 0.15-0.02/0.01 MG (/) tablet, Take 1 tablet by mouth daily., Disp: 28 tablet, Rfl: 11 ??? dicyclomine 10 MG capsule, Take 1 capsule (10 mg total) by mouth 4 (four) times daily before meals and nightly., Disp: 240 capsule, Rfl: 0 ??? divalproex DR sprinkle 125 MG capsule, Take 125 mg by mouth 2 (two) times daily., Disp: , Rfl: ??? Levocetirizine Dihydrochloride (XYZAL OR), , Disp: , Rfl: There is no immunization history on file for this patient. No Known Allergies Past Medical History: Diagnosis Date ??? Seizures (CMS/HCC) Past Surgical History: Procedure Laterality Date ??? TONSILLECTOMY Social History Socioeconomic History ??? Marital status: Single Spouse name: Not on file ??? Number of children: Not on file ??? Years of education: Not on file ??? Highest education level: Not on file Occupational History ??? 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 Financial resource strain: Not on file ??? Food insecurity: Worry: Not on file Inability: Not on file ??? Transportation needs: Medical: Not on file Non-medical: Not on file Tobacco Use ??? Smoking status: Never Smoker ??? Smokeless tobacco: Never Used Substance and Sexual Activity ??? Alcohol use: Yes Frequency: Monthly or less Drinks per session: 1 or 2 Comment: occasional ??? Drug use: No ??? Sexual activity: Not on file Lifestyle ??? Physical activity: Days per week: Not on file Minutes per session: Not on file ??? Stress: Not on file Relationships ??? Social connections: Talks on phone: Not on file Gets together: Not on file Attends adventist service: Not on file Active member of club or organization: Not on file Attends meetings of clubs or organizations: Not on file Relationship status: Not on file ??? Intimate partner violence: Fear of current or ex partner: Not on file Emotionally abused: Not on file Physically abused: Not on file Forced sexual activity: Not on file Other Topics Concern ??? Not on file Social History Narrative ??? Not on file No family history on file. No family status information on file. Physical Exam: Physical Exam Constitutional: She appears well-developed and well-nourished. Cardiovascular: Normal rate and regular rhythm. Pulmonary/Chest: Effort normal and breath sounds normal. Abdominal: Soft. Musculoskeletal: Normal range of motion. Neurological: She is alert. Skin: Skin is warm and dry. Filed Vitals: 05/06/19 1552 BP: 126/78 Pulse: 104 Weight: 133.8 kg (295 lb) Height: 5' 10.5 (1.791 m) Body mass index is 41.73 kg/m??. Assessment: 1. Seizure disorder (CMS/HCC) AMB REFERRAL TO NEUROLOGY 2. Routine general medical examination at a health care facility desogestrel- ethinyl estradiol (AZURETTE) 0.15-0.02/0.01 MG (21/5) tablet 3. Generalized abdominal pain dicyclomine 10 MG capsule 4. Irritable bowel syndrome with diarrhea dicyclomine 10 MG capsule 5. Fatigue, unspecified type Plan: The primary encounter diagnosis was Seizure disorder (CMS/HCC). Diagnoses of Routine general medical examination at a health care facility, Generalized abdominal pain, Irritable bowel syndrome with diarrhea, and Fatigue, unspecified type were also pertinent to this visit. - Comply with suggestions for healthy lifestyle The primary encounter diagnosis was Seizure disorder (CMS/HCC). Diagnoses of Routine general medical examination at a health care facility, Generalized abdominal pain, Irritable bowel syndrome with diarrhea, and Fatigue, unspecified type were also pertinent to this visit. - All conditions are stable and compensated (except those noted above) Diagnoses and all orders for this visit: Seizure disorder (CMS/HCC) - AMB REFERRAL TO NEUROLOGY Routine general medical examination at a health care facility - desogestrel-ethinyl estradiol (AZURETTE) 0.15-0.02/0.01 MG (21/5) tablet; Take 1 tablet by mouth daily. Generalized abdominal pain - dicyclomine 10 MG capsule; Take 1 capsule (10 mg total) by mouth 4 (four) times daily before meals and nightly. Irritable bowel syndrome with diarrhea - dicyclomine 10 MG capsule; Take 1 capsule (10 mg total) by mouth 4 (four) times daily before meals and nightly. Fatigue, unspecified type She was encouraged to eat properly and exercise. She was given a pink slip to obtain fasting labs at a later date. She would like referral to neurology. Return if symptoms worsen or fail to improve. MONIK FONSECA MD Referring Provider: No ref. provider found PCP: MONIK FONSECA MD SOFTWARE DEVELOPER * Monik Fonseca MD - 05/06/2019 4:15 PM CST TSH was a little high. However, the free T3 and free T4 are normal. For now, observe. Repeat TSH in4 to 6 months. SOFTWARE DEVELOPER documented in this encounter Plan of Treatment Upcoming Encounters Date Type Department Care Team (Late st Contact Info) Description 08/21/2024 4:00 PM CDT Office Visit [facility] Family Medicine [place] [phone] Charla Campos PA-C [address] [place] [address] Scheduled Referrals Name Type Priority Associated Diagnoses Orde r Schedule Ambulatory referral to Neurology Referral Routine Seizure disorder ([facility]) Ordered: 05/06/2019 documented as of this encounter Procedures Procedure Name Priority Date/Time Associated Diagnosis Comments TEST AUTHORIZATION Routine 05/08/2019 1: 01 PM IT SOFTWARE DEVELOPER TEST AUTHORIZATION Routine 05/08/2019 1: 01 PM IT SOFTWARE DEVELOPER TEST AUTHORIZATION Routine 05/08/2019 1: 01 PM IT SOFTWARE DEVELOPER FREE T3 Routine 05/07/2019 7:48 AM IT SOFTWARE DEVELOPER documented in this encounter Results * TSH W/REFLEX (10/31/2019 3:50 PM CDT) TSH 1.380 0.358 - 3.74 uIU/ML 10/31/2019 4:39 PM CDT [facility] Comment: HIGH DOSES OF BIOTIN MAY INTERFERE WITH THIS TEST RESULT. CORRELATION TO CLINICAL HISTORY AND PRESENTATION RECOMMENDED. FREE T4 NOT INDICATED 10/31/2019 3:50 PM CDT us Monik Fonseca MD LABORATORY Final Resul t Performing Organization Address City/[facility]/ZIP Co de Phone Number [facility] [address] [place] [address], * TEST AUTHORIZATION (05/08/2019 1:01 PM IT SOFTWARE DEVELOPER) NOTE THIS IS TO FOLLOW UP WITH YOUR VERBAL REQUEST FOR TESTING ON THIS PATIENT. [facility] Follow-up Testing Result [id number] [facility] ORDER CONFIRMATION CONFIRMATION OF VERBAL ORDER RECEIVED. THANK YOU! [facility] 05/08/2019 1:01 PM IT SOFTWARE DEVELOPER 05/08/2019 1:01 PM IT SOFTWARE DEVELOPER Narrative [facility] - 05/09/2019 1:26 PM IT SOFTWARE DEVELOPER REPORT: [id number] us Monik Fonseca MD LABORATORY Final Resul t Performing Organization Address [facility] Co de Phone Number [facility] [address] [place] [address], * TEST AUTHORIZATION (05/08/2019 1:01 PM IT SOFTWARE DEVELOPER) NOTE THIS IS TO FOLLOW UP WITH YOUR VERBAL REQUEST FOR TESTING ON THIS PATIENT. [facility] Follow-up Testing Result [id number] [facility] ORDER CONFIRMATION CONFIRMATION OF VERBAL ORDER RECEIVED. THANK YOU! [facility] 05/08/2019 1:01 PM IT SOFTWARE DEVELOPER 05/08/2019 1:01 PM IT SOFTWARE DEVELOPER Narrative [facility] - 05/09/2019 1:26 PM IT SOFTWARE DEVELOPER REPORT: [id number] us Monik Fonseca MD LABORATORY Final Resul t Performing Organization Address City/[facility]/ZIP Co de Phone Number [facility] [address] [place] [address], * TEST AUTHORIZATION (05/08/2019 1:01 PM IT SOFTWARE DEVELOPER) CONTACT INFORMATION: SABRA FROST PRIMARY DIAGNOSIS: E03.9 [facility] TEST INFO FREE T3, FREE T4 [facility] COMMENT YES [facility] COMMENT SEE RESULTS BELOW [facility] Comment: WE HAVE RECEIVED A REQUEST FOR TESTING FROM YOUR OFFICE. ??PLEASE SIGN AND RETURN THIS NOTIFICATION CONFIRMATION AND DOCUMENTATION. PLEASE RETURN FAX TO [facility] CLIENT SERVICES AT . IF YOU HAVE ANY QUESTIONS, PLEASE CALL US AT . SIGNATURE: TEST NAME: [id number], [id number] [facility] 05/08/2019 1:01 PM IT SOFTWARE DEVELOPER 05/08/2019 1:01 PM IT SOFTWARE DEVELOPER Narrative [facility] - 05/08/2019 1:02 PM IT SOFTWARE DEVELOPER REPORT: [id number] us Monik Fonseca MD LABORATORY Final Resul t Performing Organization Address [facility] de Phone Number [facility] [address] [place] [address], * FREE T3 (05/07/2019 7:48 AM IT SOFTWARE DEVELOPER) FREE T3 4.1 2.0 - 4.4 PG/ML [facility] 05/07/2019 7:48 AM IT SOFTWARE DEVELOPER 05/08/2019 4:46 AM IT SOFTWARE DEVELOPER Narrative [facility] - 05/08/2019 4:59 PM IT SOFTWARE DEVELOPER REPORT: [id number] ADD [id number] us Monik Fonseca MD LABORATORY Final Resul t Performing Organization Address [facility]/ZIP Co de Phone Number [facility] [address] [place] [address], documented in this encounter Visit Diagnoses Diagnosis Seizure disorder (CMS/HCC [facility])- Primary Unspecified epilepsy without mention of intractable epilepsy Routine general medical examination at a health care facility Generalized abdominal pain Abdominal pain, generalized Irritable bowel syndrome with diarrhea Irritable bowel syndrome Fatigue, unspecified type documented in this encounter
--- OUTSIDE RECORDS SUMMARY | 2024-06-08 08:00 | XMS_ITS | Encounter Summary ---
Author Organization [facility] Address [address] [place] [address]. [place], [place] [id number] [place] [id number] Care Team Providers Care Compliance And Control Analyst Name Role Phone None, Provider Primary Care Provider Unavaila ble Reason for Referral * Imaging (Emergency) - Closed Specialty Diagnoses / Procedures Referred By Yodit kenney Referred To Contact RADIOLOGY Procedures CT ABD+PEL W IV CON ONLY Fanny Caal NP Referral ID Status Reason Start Date Expiration Date Visits Re quested Visits Authorized [id number] Closed 12/15/2018 01/16/2020 1 1 Reason for Visit * Reason Comments Nausea Diarrhea Encounter Details Date Type Department Care Team (Late st Contact Info) Description 12/15/2018 2:14 PM CDT - 12/15/2018 6:50 PM CDT Emergency [facility] [place] [address] Andrés Collins MD [address] [place] [address] Nausea; Diarrhea Discharge Disposition: Home or Self Care (Routine Discharge) Social History Tobacco Use Types Packs/Day Years Used Date Smoking Tobacco: Never Smokeless Tobacco: Never Alcohol Use Standard Drinks/Week Comments Yes 0 (1 standard drink = 0.6 oz pur e alcohol) occasional Comments No Sex and Gender Information Value Date Recorded Sex Assigned at Not on file Legal Sex Female 1:34 PM CDT Gender Identity Not on file Sexual Orientation Not on file documented as of this encounter Last Filed Vital Signs Vital Sign Reading Time Taken Comments Blood Pressure 142/100 12/15/2018 6:00 PM CDT Pulse 89 12/15/2018 6:00 PM CDT Temperature 37.1 ??C (98.8 ??F) 12/15/2018 1:55 PM CD T Respiratory Rate 16 12/15/2018 6:00 PM CDT Oxygen Saturation 99% 12/15/2018 6:00 PM CDT Inhaled Oxygen Concentration - - Weight 131.7 kg (290 lb 6.4 oz) 12/15/2018 1:55 PM CDT Height 180.3 cm (5' 11 ) 12/15/2018 1:55 PM CDT Body Mass Index 40.5 12/15/2018 1:55 PM CDT documented in this encounter Discharge Instructions * Discharge Instructions* Andrés Collins MD - 12/15/2018 6:23 PM CDT Clinically your symptoms appear consistent with a noninfectious colitis. While it did not show on the CT scan the discharge instructions have been provided in the last. You should work to find a primary care doctor and a nuclear plant equipment operator to discuss your ongoing symptoms. There is no specific treatment at this point in time. You can try the Bentyl that has been prescribed. * Attachments The following attachments cannot be sent through Care Everywhere. * Acute Abdomen (Belly Pain) (Nepalese) * Colitis Discharge Instructions (Nepalese) documented in this encounter Medications at Time of Discharge dicyclomine 10 MG capsule Take 1 capsule (10 mg total) by mouth 4 (four) times daily before meals and nightly. 240 capsule 12/15/2018 12/24/2018 documented as of this encounter ED Notes * Marii Blair RN - 12/15/2018 6:04 PM CDT Patient awaiting CT results, call light is within reach, patient requesting food and drink-patient NPO until CT results are read, will continue to monitor patient * Marii Blair RN - 12/15/2018 5:06 PM CDT Patient has had diarrhea intermittently for 6 months with abdominal pain. Patient stated it usuallylasts for appx 2 weeks and does improve with pepto. * Andrés Collins MD - 12/15/2018 4:13 PM CDT Chief Complaint Chief Complaint Patient presents with ??? Nausea ??? Diarrhea History of Present Illness Is a previously healthy 23-year-old female who presents today with complaints of 6 months of numerous discrete episodes of cramping abdominal pain and diarrhea. Patient states that during these episodes she has mucoid discharge with some blood when attempting to have bowel movements. In the interimshe will have liquid stools. She denies fevers, or other symptoms. She has not had this evaluated. Medical History ALLERGIES: No Known Allergies MEDICATIONS: Prior to Admission medications Not on File PAST MEDICAL HISTORY: Past Medical History: Diagnosis Date ??? Seizures (CMS/HCC) PAST SURGICAL HISTORY: Past Surgical History: Procedure Laterality Date ??? TONSILLECTOMY FAMILY HISTORY: No family history on file. SOCIAL HISTORY: Social History Tobacco Use ??? Smoking status: Never Smoker ??? Smokeless tobacco: Never Used Substance Use Topics ??? Alcohol use: Yes Comment: occasional ??? Drug use: No Review of Systems Review of Systems Constitutional: Negative. Negative for fever. HENT: Negative. Respiratory: Negative for cough, chest tightness and shortness of breath. Cardiovascular: Negative. Negative for chest pain. Gastrointestinal: Negative for abdominal distention and abdominal pain. Musculoskeletal: Negative. Neurological: Negative for seizures and syncope. Psychiatric/Behavioral: Negative. All other systems reviewed and are negative. Physical Exam Filed Vitals: 12/15/18 1355 12/15/18 1603 BP: (!) 146/92 (!) 130/92 Pulse: 110 101 Resp: 18 16 Temp: 98.8 ??F (37.1 ??C) TempSrc: Oral SpO2: 100% 98% Weight: 131.7 kg (290 lb 6.4 oz) Height: 5' 11 (1.803 m) Physical Exam Constitutional: She is oriented to person, place, and time. She appears well- developed and well-nourished. No distress. HENT: Head: Normocephalic and atraumatic. Eyes: Pupils are equal, round, and reactive to light. No scleral icterus. Neck: Normal range of motion. Neck supple. Cardiovascular: Normal rate, regular rhythm, normal heart sounds and intact distal pulses. Pulmonary/Chest: Effort normal and breath sounds normal. No stridor. No respiratory distress. She has no wheezes. Abdominal: Soft. Bowel sounds are normal. She exhibits no distension. Musculoskeletal: Normal range of motion. She exhibits no edema or deformity. Neurological: She is alert and oriented to person, place, and time. No cranial nerve deficit. Skin: Skin is warm and dry. Capillary refill takes less than 2 seconds. No rash noted. Psychiatric: She has a normal mood and affect. Her behavior is normal. Nursing note and vitals reviewed. Diagnostic Studies / Procedures ELECTROCARDIOGRAMS: No results found for this visit on 12/15/18. LABORATORY STUDIES: Results for orders placed or performed during the hospital encounter of 12/15/18 CBC W/DIFF AUTOMATED Result Value Ref Range WBC 16.0 (H) 4.5 - 11.0 x10'3/uL RBC 5.05 4.20 - 5.40 x10'6/uL HGB 14.6 12.0 - 16.0 G/DL HCT 44.8 38.0 - 48.0 % MCV 88.7 80.0 - 94.0 FL MCH 28.9 27.0 - 31.0 PG MCHC 32.6 32.0 - 36.0 G/DL RDW 12.6 11.5 - 14.5 % PLT 280 130 - 400 x10'3/uL MPV 9.6 9.3 - 12.2 FL DIFFERENTIAL TYPE PENDING COMPREHENSIVE METABOLIC PANEL Result Value Ref Range GLUCOSE 86 70 - 99 MG/DL BUN 11 7 - 18 MG/DL CREATININE 0.80 0.55 - 1.02 MG/DL SODIUM 139 136 - 145 MMOL/L POTASSIUM 3.4 (L) 3.5 - 5.1 MMOL/L CHLORIDE 108 100 - 108 MMOL/L CO2 22.1 21 - 32 MMOL/L CALCIUM 9.5 8.5 - 10.1 MG/DL TOTAL BILIRUBIN 0.2 0.2 - 1.2 MG/DL TOTAL PROTEIN 7.9 6.4 - 8.2 G/DL ALBUMIN 3.4 3.4 - 5.0 G/DL AST 10 (L) 15 - 37 U/L ALT 11 (L) 14 - 55 U/L ALK PHOS 63 50 - 136 U/L ANION GAP 8.9 5 - 15 MMOL/L BUN CREATININE RATIO 13.8 6 - 26 A/G RATIO 0.8 (L) 1.0 - 2.0 RATIO eGFR Non-Afr. Amer. >90 >90 ML/MIN/1.73 M2 eGFR Afr. Amer. >90 >90 ML/MIN/1.73 M2 URINALYSIS Result Value Ref Range Specimen Type URINE CLEAN CATCH COLOR YELLOW TRANSPARENCY CLEAR Specific [place] (U) 1.029 1.001 - 1.030 U PH 5.0 5.0 - 9.0 LEUKOCYTE ESTERASE NEGATIVE NEGATIVE NITRITES NEGATIVE NEGATIVE PROTEIN, URINE NEGATIVE <30 MG/DL URINE GLUCOSE NEGATIVE NEGATIVE MG/DL U KETONES TRACE (A) NEGATIVE MG/DL UROBILINOGEN NEGATIVE NEGATIVE MG/DL Urine Bilirubin NEGATIVE NEGATIVE MG/DL BLOOD SMALL (A) NEGATIVE CULTURE & SENSITIVITY INDICATED? CULTURE IS NOT INDICATED SQUAMOUS EPITHELIALS FEW /LPF MUCUS RARE /LPF WBC/HPF <1 <6 /HPF RBC/HPF 2 <6 /HPF IMAGING STUDIES CT ABD+PEL W IV CON ONLY Final Result by User, [id number] (12/16 1815) EXAMINATION: CT ABDOMEN AND PELVIS WITH CONTRAST HISTORY: Crampy abdominal pain with bright red bloody diarrhea for 2 weeks. COMPARISON: None Available. TECHNIQUE: 3 mm axial images were obtained through the abdomen and pelvis following the administration of 140 MLS of ISOVUE-370 intravenous contrast through an existing IV line. Additional sagittal & coronal reconstructions were performed. FINDINGS: ABDOMEN: Imaging of the lung bases demonstrates [...] No masses. Aorta: Patent. Normal in caliber. IVC: Patent. Normal in caliber. GI Tract: No small bowel obstruction. Mildly prominent right lower quadrant mesenteric lymph nodes. No ascites or pneumoperitoneum is seen. PELVIS: Colon: Normal in caliber and appearance without focal inflammatory changes. Appendix: Normal. Urinary Bladder: Well distended. Uterus & Adnexa: Uterus unremarkable. A 4 cm right ovarian cyst. No pelvic free fluid, hematoma, mass or adenopathy. BONES: No distinct destructive bony lesions. IMPRESSION: 1. No acute intra-abdominal or pelvic abnormality to account for reported symptoms. 2. No bowel obstruction or acute appendicitis. 3. No acute obstructive uropathy. 4. Nonspecific mildly prominent right lower quadrant mesenteric lymph nodes which can be seen with mesenteric adenitis and enteritis in the appropriate clinical setting. 5. A 4 cm right ovarian cyst which is likely physiologic. A radiation dose lowering technique was used for this procedure, which may include, but is not limited to, dose reduction technique, automated exposure control, the use of iterative reconstruction, ALARA (As Low As Reasonably Achievable) techniques, and Image Gently techniques. Interpreted By: Miguel Angel Oliver MD, 12/15/2018 6:07 PM ED Course / Medical Decision Making This is a 23-year-old female here with complaints of intermittent episodes of abdominal cramping aswell as mucoid stools with occasional blood that have been going on for 6 months. There is no clearpattern to her episodes. They do not appear to be worsening over time. Her exam is benign. Given her elevated white count however a CT of the abdomen pelvis was obtained. It demonstrated no acute surgical pathology. Patient's overall presentation is suspicious for a noninfectious colitis potentially secondary to inflammatory bowel disease however given lack of definitive findings the patient be discharged with general abdominal pain instructions and contact information for both a new primary care doctor as well as a nuclear plant equipment operator. Clinical Impression Abdominal pain (Primary) Disposition: Discharge Andrés Collins MD 12/16/[id number] * Fanny Caal NP - 12/15/2018 2:49 PM CDT [place], [place] EMERGENCY DEPARTMENT ENCOUNTER Medical Screening Examination 12/15/18 2:51 PM Chief Complaint : Nausea and Diarrhea HPI : Paige Zavaleta is a 23-year-old female who presents with c/o episodes of diarrhea, nausea, blood in stool for the past 6 months that last approx. 2 wks and improved with pepto. Today has been having diarrhea for over 2 wks. Took antidiarrheal for 1 wk with no improvement. Blood in stool bright red today. ABD cramping before episode of diarrhea but not constant pain. Denies weakness, dizziness. No urinary symptoms. Having normal periods. Denies . Vital Signs: Filed Vitals: 12/15/18 1355 BP: (!) 146/92 Pulse: 110 Resp: 18 Temp: 98.8 ??F (37.1 ??C) TempSrc: Oral SpO2: 100% Weight: 131.7 kg (290 lb 6.4 oz) Height: 5' 11 (1.803 m) Physical exam: A brief physical exam was completed to facilitate/expedite patient care. Plan: Necessary labs/imaging/medications ordered to initiate pt care. Fanny Caal NP 12/15/18 1451 Fanny Caal NP 12/15/18 1452 Cosigned by Andrés Collins MD at 12/16/2018 7:38 PM CDT * Jaison Ramos RN - 12/15/2018 1:59 PM CDT Pt states for the past six months has been having intermittent diarrhea and sometimes sees bright red blood in it. Has used otc diarrhea medicine intermittently. documented in this encounter Plan of Treatment Upcoming Encounters Date Type Department Care Team (Late st Contact Info) Description 08/21/2024 4:00 PM CDT Office Visit [facility] - [place] [address] [place] [id number] Charla Campos PA-C [address] [place] [address] documented as of this encounter Procedures Procedure Name Priority Date/Time Associated Diagnosis Comments CT ABD+PEL W CON STAT 12/15/2018 6:05 PM CDT URINALYSIS STAT 12/15/2018 3:02 PM CDT COMPREHENSIVE METABOLIC PANEL STAT 12/15/2018 3:02 PM CDT CBC W/DIFF AUTOMATED STAT 12/15/2018 3:02 PM CDT documented in this encounter Results * CT ABD+PEL W IV CON ONLY (12/15/2018 6:05 PM CDT) Anatomical Region Laterality Modality Abdomen Computed Tomogra phy 12/15/2018 6:07 PM CDT Impressions 12/15/2018 6:15 PM CDT IMPRESSION: 1. No acute intra-abdominal or pelvic abnormality to account for reported symptoms. 2. No bowel obstruction or acute appendicitis. 3. No acute obstructive uropathy. 4. Nonspecific mildly prominent right lower quadrant mesenteric lymph nodes which can be seen with mesenteric adenitis and enteritis in the appropriate clinical setting. 5. A 4 cm right ovarian cyst which is likely physiologic. A radiation dose lowering technique was used for this procedure, which may include, but is not limited to, dose reduction technique, automated exposure control, the use of iterative reconstruction, ALARA (As Low As Reasonably Achievable) techniques, and Image Gently techniques. Interpreted By: Miguel Angel Oliver MD, 12/15/2018 6:07 PM Narrative 12/15/2018 6:15 PM CDT EXAMINATION: CT ABDOMEN AND PELVIS WITH CONTRAST HISTORY: Crampy abdominal pain with bright red bloody diarrhea for 2 weeks. COMPARISON: None Available. TECHNIQUE: 3 mm axial images were obtained through the abdomen and pelvis following the administration of 140 MLS of ISOVUE-370 intravenous contrast through an existing IV line. Additional sagittal & coronal reconstructions were performed. FINDINGS: ABDOMEN: Imaging of the lung bases demonstrates [...] nodes. No ascites or pneumoperitoneum is seen. PELVIS: Colon: Normal in caliber and appearance without focal inflammatory changes. Appendix: Normal. Urinary Bladder: Well distended. Uterus & Adnexa: Uterus unremarkable. ??A 4 cm right ovarian cyst. No pelvic free fluid, hematoma, mass or adenopathy. BONES: No distinct destructive bony lesions. Procedure Note Cody Oliver MD - 12/15/2018 EXAMINATION: CT ABDOMEN AND PELVIS WITH CONTRAST HISTORY: Crampy abdominal pain with bright red bloody diarrhea for 2 weeks. COMPARISON: None Available. TECHNIQUE: 3 mm axial images were obtained through the abdomen and pelvis followingthe administration of 140 MLS of ISOVUE-370 intravenous contrast throughan existing IV line. Additional sagittal & coronal reconstructions wereperformed. FINDINGS: ABDOMEN: Imaging of the lung bases demonstrates no airspace consolidation oreffusions. Liver: Normal in size and CT density. No masses. Spleen: Normal size and CT density. Pancreas: Normal size and CT density. No duct dilatation. No masses. Adrenal Glands: Normal in size and CT density. No masses. Gallbladder and bile ducts: Normal in appearance. No duct dilatation. Kidneys: Normal shape, size and position. No right or left hydronephrosis.Symmetric perfusion. No masses. Aorta: Patent. Normal in caliber. IVC: Patent. Normal in caliber. GI Tract: No small bowel obstruction. Mildly prominent right lower quadrant mesenteric lymph nodes. No ascites or pneumoperitoneum is seen. PELVIS: Colon: Normal in caliber and appearance without focal inflammatorychanges. Appendix: Normal. Urinary Bladder: Well distended. Uterus & Adnexa: Uterus unremarkable. A 4 cm right ovarian cyst. No pelvic free fluid, hematoma, mass or adenopathy. BONES: No distinct destructive bony lesions. IMPRESSION: 1. No acute intra-abdominal or pelvic abnormality to account for reportedsymptoms. 2. No bowel obstruction or acute appendicitis. 3. No acute obstructive uropathy. 4. Nonspecific mildly prominent right lower quadrant mesenteric lymphnodes which can be seen with mesenteric adenitis and enteritis in theappropriate clinical setting. 5. A 4 cm right ovarian cyst which is likely physiologic. A radiation dose lowering technique was used for this procedure, which mayinclude, but is not limited to, dose reduction technique, automatedexposure control, the use of iterative reconstruction, ALARA (As Low AsReasonably Achievable) techniques, and Image Gently techniques. Interpreted By: Miguel Angel Oliver MD, 12/15/2018 6:07 PM Fanny Caal HADOOP ADMINISTRATOR CT Final Resu lt * (ABNORMAL) URINALYSIS (12/15/2018 3:02 PM CDT) SPECIMEN TYPE URINE CLEAN CATCH 12/15/2018 2:56 PM CDT [facility] COLOR (U) YELLOW 12/15/2018 3:33 PM CDT [facility] TRANSPARENCY CLEAR 12/15/2018 3:33 PM CDT [facility] SPECIFIC GRAVITY (U) 1.029 1.001 - 1.030 12/15/2018 3:33 PM CDT [facility] U PH 5.0 5.0 - 9.0 12/15/2018 3:33 PM CDT [facility] LEUKOCYTES (U) NEGATIVE NEGATIVE 12/15/2018 3:33 PM CDT [facility] NITRITES NEGATIVE NEGATIVE 12/15/2018 3:33 PM CDT [facility] PROTEIN (U) NEGATIVE <30 MG/DL 12/15/2018 3:33 PM CDT [facility] URINE GLUCOSE NEGATIVE NEGATIVE MG/DL 12/15/2018 3:33 PM CDT [facility] KETONES MG/DL (U) TRACE(A) NEGATIVE MG/DL 12/15/2018 3:33 PM CDT [facility] UROBILINOGEN NEGATIVE NEGATIVE MG/DL 12/15/2018 3:33 PM CDT [facility] BILIRUBIN (U) NEGATIVE NEGATIVE MG/DL 12/15/2018 3:33 PM CDT [facility] BLOOD (U) SMALL(A) NEGATIVE 12/15/2018 3:33 PM CDT [facility] CULTURE & SENSITIVITY INDICATED? CULTURE IS NOT INDICATED 12/15/2018 3:33 PM CDT [facility] SQUAMOUS EPITHELIALS FEW /LPF 12/15/2018 3:33 PM CDT [facility] MUCUS RARE /LPF 12/15/2018 3:33 PM CDT [facility] WBC/HPF <1 <6 /HPF 12/15/2018 3:33 PM CDT [facility] RBC/HPF 2 <6 /HPF 12/15/2018 3:33 PM CDT [facility] URINE SPECIMEN OBTAINED BY CLEAN CATCH PROCEDURE / Unknown 12/15/2018 3:02 PM CDT us Fanny Caal HADOOP ADMINISTRATOR URINE ORDERABLES Final Res ult [facility] [address] [place] [address], [place] [phone] * (ABNORMAL) COMPREHENSIVE METABOLIC PANEL (12/15/2018 3:02 PM CDT) [facility] GLUCOSE 86 70 - 99 MG/DL 12/15/2018 3:42 PM CDT [facility] BUN 11 7 - 18 MG/DL 12/15/2018 3:42 PM CDT [facility] CREATININE S/P/B 0.80 0.55 - 1.02 MG/DL 12/15/2018 3:42 PM CDT [facility] SODIUM S/P/B 139 136 - 145 MMOL/L 12/15/2018 3:42 PM CDT [facility] POTASSIUM S/P/B 3.4(L) 3.5 - 5.1 MMOL/L 12/15/2018 3:42 PM CDT [facility] CHLORIDE S/P/B 108 100 - 108 MMOL/L 12/15/2018 3:42 PM CDT [facility] CO2 22.1 21 - 32 MMOL/L 12/15/2018 3:42 PM CDT [facility] CALCIUM S/P/B 9.5 8.5 - 10.1 MG/DL 12/15/2018 3:42 PM CDT [facility] BILIRUBIN TOTAL S/P/B 0.2 0.2 - 1.2 MG/DL 12/15/2018 3:42 PM CDT [facility] TOTAL PROTEIN S/P/B 7.9 6.4 - 8.2 G/DL 12/15/2018 3:42 PM CDT [facility] ALBUMIN S/P/B 3.4 3.4 - 5.0 G/DL 12/15/2018 3:42 PM CDT [facility] AST 10(L) 15 - 37 U/L 12/15/2018 3:42 PM CDT [facility] ALT 11(L) 14 - 55 U/L 12/15/2018 3:42 PM CDT [facility] ALKALINE PHOSPHATASE S/P/B 63 50 - 136 U/L 12/15/2018 3:42 PM CDT [facility] ANION GAP 8.9 5 - 15 MMOL/L 12/15/2018 3:42 PM CDT [facility] BUN CREATININE RATIO 13.8 6 - 26 12/15/2018 3:42 PM CDT [facility] A/G RATIO 0.8(L) 1.0 - 2.0 RATIO 12/15/2018 3:42 PM CDT [facility] EGFR NON-AFR. AMER. >90 >90 ML/MIN/1.7 3 M2 12/15/2018 3:42 PM CDT [facility] EGFR AFR. AMER. >90 >90 ML/MIN/1.7 3 M2 12/15/2018 3:42 PM CDT [facility] Comment: NOTE: eGFR is not calculated for patients <18 years of age. This is an estimated GFR (CKD EPI) and should not be used for calculating drug doses. 12/15/2018 3:02 PM CDT us Fanny Caal NP LABORATORY Final Resu lt [facility] [address] [place] [address], [place] [phone] * (ABNORMAL) CBC W/DIFF AUTOMATED (12/15/2018 3:02 PM CDT) WBC 16.0(H) 4.5 - 11.0 x10'3/uL 12/15/2018 3:24 PM CDT [facility] RBC 5.05 4.20 - 5.40 x10'6/uL 12/15/2018 3:24 PM CDT [facility] HGB 14.6 12.0 - 16.0 G/DL 12/15/2018 3:24 PM CDT [facility] HCT 44.8 38.0 - 48.0 % 12/15/2018 3:24 PM CDT [facility] MCV 88.7 80.0 - 94.0 FL 12/15/2018 3:24 PM CDT [facility] MCH 28.9 27.0 - 31.0 PG 12/15/2018 3:24 PM CDT [facility] MCHC 32.6 32.0 - 36.0 G/DL 12/15/2018 3:24 PM CDT [facility] RDW 12.6 11.5 - 14.5 % 12/15/2018 3:24 PM CDT [facility] PLT 280 130 - 400 x10'3/uL 12/15/2018 3:24 PM CDT [facility] MPV 9.6 9.3 - 12.2 FL 12/15/2018 3:24 PM CDT [facility] DIFFERENTIAL TYPE AUTOMATED DIFFERENTIAL 12/15/2018 4:12 PM CDT [facility] NEUTROPHILS % 64.2 % 12/15/2018 4:12 PM CDT [facility] LYMPHOCYTES % 22.0 % 12/15/2018 4:12 PM CDT [facility] MONOCYTES % 10.4 % 12/15/2018 4:12 PM CDT [facility] EOSINOPHILS 1.9 % 12/15/2018 4:12 PM CDT [facility] BASOPHILS 0.6 % 12/15/2018 4:12 PM CDT [facility] IMMATURE GRANS % 0.9 % 12/16/19 4:12 PM CDT [facility] ABS. NEUTROPHILS TOTAL 10.30(H) 1.80 - 7.70 x10'3/uL 12/15/2018 4:12 PM CDT [facility] ABS. LYMPHOCYTES 3.52 1.00 - 4.80 x10'3/uL 12/15/2018 4:12 PM CDT [facility] ABS. MONOCYTES 1.66(H) 0.24 - 0.86 x10'3/uL 12/15/2018 4:12 PM CDT [facility] ABS. EOSINOPHILS 0.31 0.04 - 0.36 x10'3/uL 12/15/2018 4:12 PM CDT [facility] ABS. BASOPHILS 0.09(H) 0.01 - 0.08 x10'3/uL 12/15/2018 4:12 PM CDT [facility] ABS. IMMATURE GRANULOCYTES 0.14 0.00 - 0.49 x10'3/uL 12/15/2018 4:12 PM CDT [facility] RBC MORPHOLOGY RBC MORPHOLOGY APPEARS NORMAL. SLIDE REVIEWED. 12/15/2018 4:12 PM CDT [facility] PLT EST. ADEQUATE 12/15/2018 4:12 PM CDT [facility] 12/15/2018 3:02 PM CDT Fanny Caal NP LABORATORY Final Resu lt [facility] [address] [place] [address], documented in this encounter Visit Diagnoses Diagnosis Abdominal pain- Primary Abdominal pain, unspecified site documented in this encounter Administered Medications Inactive Administered Medications - up to 3 most recent administrations Medication Order MAR Action Action Date Dose Rate Site iopamidol (ISOVUE-370) 76 % injection 140 mL 140 mL, Intravenous, IMG once as needed, Contrast, 1 dose, Starting on 12/15/18 at 1806, Until 12/15/18 at 1806 Given 12/15/2018 6:06 PM CDT 140 mLs documented in this encounter Active and Recently Administered Medications Times are shown in CDT. PRN Medication Order 12/13/2018 12/14/2018 12/15/2018 iopamidol (ISOVUE-370) 76 % injection 140 mL (COMPLETED) 140 mL, Intravenous, IMG once as needed, Contrast, 1 dose, Starting on 12/15/18 at 1806, Until 12/15/18 at 1806 1806 (Given - Provid er: Frandy Singleton RTR) documented in this encounter Care Teams Compliance And Control Analyst Relationship Specialty Start Date End Date None, Provider, PCP - General 12/15/18 04/08/19 documented as of this encounter
--- OUTSIDE RECORDS SUMMARY | 2024-06-08 08:00 | XMS_ITS | Encounter Summary ---
Author Organization [facility] Address [address] [place] [address]. [place], [place] [id number] [place] [address] Care Team Providers Care Deboning Team Leader Name Role Phone None, Provider MD Primary Care Provider Unavaila ble Reason for Visit * Reason Onset Date Comments ER F/U 12/17/2018 Encounter Details Date Type Department Care Team (Late st Contact Info) Description 12/17/2018 Telephone [facility] Medical [facility] Multispecialty Care - [address], [address] [place] [address] Omar Johns MD 3 [facility] [address] [place] [address] ER F/U Social History Tobacco Use Types Packs/Day Years [...] as of this encounter Progress Notes * Sailaja Packer - 12/17/2018 8:24 AM CDT Pt went to [facility] this weekend due to diarrhea/ stomach aches. Been going on for months. They ran tests on her and told her to F/U with Dr. Johns. High white blood count per ER, inflammatory colitis. Did CT scan. PCP None Ins [facility] [phone] documented in this encounter Plan of Treatment Upcoming Encounters Date Type Department Care Team (Late st Contact Info) Description 08/21/2024 4:00 PM CDT Office Visit [facility] Medical Group Family Medicine - [place] [phone] Charla Campos PA-C [address] [place] [phone] documented as of this encounter Visit Diagnoses Not on filedocumented in this encounter Care Teams Deboning Team Leader Relationship Specialty Start Date End Date None, Provider, PCP - General 12/15/18 04/08/19 documented as of this encounter
--- OUTSIDE RECORDS SUMMARY | 2024-06-08 08:00 | XMS_ITS | Encounter Summary ---
Author Organization [facility] Address [facility] [place] [address] [place] [address] Care Team Providers Care Manufacturing Director Name Role Phone None, Provider Primary Care Provider Unavaila ble Reason for Visit * Reason Comments Diarrhea x 6 months abdominal pain, cramps Blood In Stool x 6 months * Consultation/Treatment (Routine) - Closed Specialty Diagnoses / Procedures Referred By Contact Referred To Contact NURSE PRACTITIONER / GASTROENTEROLOGY Diagnoses hospital follow up Procedures NEW PATIENT Karson Payne MD [address] [facility] [address] [place] [address] Phone: tel: fax: Seble Bliss NP 3 [facility]. [address] [address] Phone: tel:[phone] fax:[phone] Referral ID Status Reason Start Date Expiration Date Visits Re quested Visits Authorized [id number] Closed 12/24/2018 01/25/2020 100 100 Encounter Details Date Type Department Care Team (Latest Contact Info) Description 12/24/2018 3:40 PM CDT Office Visit [facility] Medical Group Multispecialty Care - [facility] [address] [facility] [address] [place] [phone] Seble Bliss NP 3 [facility]. [address] [place] [address] Diarrhea (x 6 months abdominal pain, cramps ); Blood In Stool (x 6 months) Social History Tobacco Use Types Packs/Day Years [...] Sign Reading Time Taken Comments Blood Pressure 118/72 12/24/2018 3:50 PM CDT Pulse - - Temperature - - Respiratory Rate - - Oxygen Saturation - - Inhaled Oxygen Concentration - - Weight 131.1 kg (289 lb) 12/24/2018 3:50 PM CDT Height 180.3 cm (5' 11 ) 12/24/2018 3:50 PM CDT Body Mass Index 40.31 12/24/2018 3:50 PM CDT documented in this encounter Patient Instructions * Patient Instructions* Seble Bliss NP - 12/24/2018 3:40 PM CDT Images from the original note were not included. Patient Education Patient Education Hemorrhoids It is recommended to consume 20-35 grams of fiber per day and at least 64 ounces/2 liters of water per day. Below are the common foods with fiber content listed for you. This will help with normal bowel movements. ?? 2018 [employer]. and/or its affiliates. All Rights Reserved. Amount [...] with added ascorbic acid 1 cup 0.5 [place] 1 cup 0.7 Vegetables Cooked Green beans 1 cup 4.0 Carrots 1/2 cup sliced 2.3 Peas 1 cup 8.8 Potato (baked, with skin) 1 medium potato 3.8 Raw [place] (with peel) 1 cucumber 1.5 Lettuce 1 [...] Nutrient Database for Standard Reference. Available at http://www.Rocket Design.usda.gov/fnic/foodcomp/search/. Graphic 53181 Version 4.0 The Basics Written by the doctors and editors at [facility] What are hemorrhoids???--??Hemorrhoids are swollen veins in the rectum. They can cause itching and pain. Sometimes they can also make you bleed during a bowel movement. In some cases, you can see or feel hemorrhoids around the outside of the rectum. In other cases, you cannot see them because they are hidden inside the rectum (figure 1). Should I see a doctor or nurse???--??You should see a doctor or nurse if you have any bleeding or if your bowel movements look like tar. Bleeding could be caused by something other than hemorrhoids, so you should have it checked out. If you do have hemorrhoids, your doctor or nurse can suggest treatments. But there some steps you can try on you your own first. What can I do to keep from getting more hemorrhoids???--??The most important thing you can do is tokeep from getting constipated. You should have a bowel movement at least a few times a week. When you have a bowel movement, you also should not have to push too much. Plus, your bowel movements should not be too hard. Being constipated and having hard bowel movements can make hemorrhoids worse. Here are some steps you can take to avoid getting constipated or having hard stools: ?? Eat lots of fruits and vegetables. They have fiber, which helps to increase bowel movements. ?? Take fiber powders, wafers, or pills. You should get 20 to 35 grams of fiber a day. ?? Take medicines called stool softeners such as docusate sodium (sample brand names: Colace, Dulcolax) or bulk-forming laxatives. Bulk-forming laxatives include psyllium seed (sample brand names: Metamucil, Konsyl), methylcellulose (sample brand name: Citrucel), polycarbophil (sample brand name: FiberCon), and wheat dextran (sample brand name: Benefiber). These medicines increase the number of bowel movements you have. They are safe to take and they can prevent problems later. What can I do to reduce my symptoms???--??Some people feel better if they soak their buttocks in 2 or 3 inches of warm water. You can do this up to 2 to 3 times a day for 10 to 15 minutes. Do not addsoap, bubble bath, or anything to the water. There are also medicines that you can get without a prescription (table 1). They are usually creamsor ointments that you rub on your anus to relieve pain, itching, and swelling. Some hemorrhoid medicines come in a capsule (called a suppository) that you put inside your rectum. Others come in a cream that comes in a bottle with a nozzle that you put inside your rectum. It is OK to try these medicines. But do not use medicines that have hydrocortisone (a steroid medicine) for more than a week, unless your doctor or nurse approves. What if the self-care steps do not work???--??If you still have symptoms after trying the steps listed above, you might need treatments to destroy or remove the hemorrhoids. One popular treatment is called rubber band ligation. For this treatment, the doctor ties tiny rubber bands around the hemorrhoids. A few days later the hemorrhoids shrink and fall off. The doctor can also use lasers, heat, or chemicals to destroy hemorrhoids. But if none of these options works, there is always surgery to remove the hemorrhoids. All topics are updated as new evidence becomes available and our peer review process is complete. This topic retrieved from [employer] on: Jun 05, 2018. Topic 35252 Version 8.0 Release: 26.5.5 - C27.6 ?2019??[employer] and/or its affiliates.??All rights reserved. figure 1: Hemorrhoids Hemorrhoids that are hidden inside the rectum are called internal hemorrhoids. You cannot see them, but they can cause symptoms. Hemorrhoids that you can see or feel are called external hemorrhoids. Graphic 53544 Version 2.0 table 1: Common at-home treatments for hemorrhoids Type of medicine Examples Notes Stool softener Docusate sodium (sample brand names: Colace, Docu, Stool Softener) Softens bowel movements Helps avoid straining while sitting on toilet Bulk-forming laxatives and fiber supplements Methylcellulose (sample brand names: Citrucel, SolubleFiber Therapy) Polycarbophil (sample brand names: FiberCon, Konsyl Fiber) Psyllium (sample brand names: Metamucil, Konsyl) Wheat dextrin (sample brand name: Benefiber) Prevent hard dry stools which make hemorrhoids worse Might reduce bleeding and other hemorrhoid symptoms Needs to be taken with plenty of water (8 glasses of water a day) Your doctor might suggest starting with a small dose and then increasing over time Pain relief Pramoxine rectal foam, ointment, or wipes (sample brand names: Proctofoam, Pramox) Can help with pain and itching Area must be gently cleaned and allowed to dry before using Medicines to dry or protect skin Witch zohreh (sample brand names: Tucks, Preparation H pads, Preparation H wipes) Zinc oxide topical paste (sample brand names: Mame's Butt Paste, Desitin) May dry or tighten skin around the anus Zinc oxide also protects skin from irritation Area must be gently cleaned and allowed to dry before using Can apply after a sitz bath (soaking in warm, shallow water) Witch zohreh wipes or unscented baby wipes can be used to clean the anus after a bowel movement Steroid cream Hydrocortisone rectal cream (sample brand name: Preparation H hydrocortisone) Reducesswelling, and pain caused by hemorrhoids Do not use for longer than a week Do not use at all if you are unless your doctor or nurse tells you to Medicines to shrink hemorrhoids Phenylephrine ointment or suppository (sample brand names: Preparation H, Rectacaine) Phenylephrine shrinks swollen hemorrhoids, and relieves itching and discomfort for a few hours Area must be gently cleaned and allowed to dry before applying Numbing ointments Benzocaine rectal ointment (sample brand name: Americaine) Dibucaine rectal ointment (sample brand name: Nupercainal) Lidocaine rectal cream (sample brand name: RectiCare) Benzocaine, dibucaine, and lidocaine can helpwith pain and itching, but should not be used without talking to a doctor first. They should only be used once in a while, in small amounts. ?? This table lists some examples of zkxe-bis-otnbhzd treatments for hemorrhoids. There are many more brand-name and generic versions available, too. Read all labels to make sure you're not using toomuch of one ingredient. ?? Do not use sjpz-jlg-kdytxpj treatments for more than one week without speaking to your doctor. They can damage your skin. ?? Follow instructions carefully - for example, it's important to clean and dry your skin before using creams or ointments. You can use an unscented baby wipe to clean your anus after a bowel movement. ?? If you have rectal bleeding, or if your bowel movements look like tar, see your doctor or nurse.These problems could be caused by something other than hemorrhoids. You should also see your doctoror nurse if your hemorrhoid symptoms still bother you after you have tried taking care of them yourself. Graphic 555301 Version 7.0 Consumer Information Use and Disclaimer This information [...] that is right for you.The use of [employer] content is governed by the [employer] Terms of Use. ??2019 [employer]. All rights reserved. Copyright ?2019??[employer]. and/or its affiliates.??All rights reserved. Patient Education Patient Education Irritable Bowel Syndrome Discharge Instructions About this topic Irritable bowel syndrome, or IBS, is a common long-term health problem of your belly. It does not cause swelling and does not lead to a more serious problem. The cause of IBS is not clear. There is no cure for IBS. Care focuses on how to control the signs. Signs may be mild to very bad. They can last for weeks or months. The main signs are: ?? Belly pain ?? Belly fullness ?? Gassy feeling ?? Bloating ?? Upset stomach ?? Loose or hard stools ?? Loss of appetite What care is needed at home? Ask your doctor what you need to do when you go home. Make sure you ask questions if you do not understand what the doctor says. This way you will know what you need to do. Ask your doctor and learn how to cope with stress. This may include: ?? Relaxation ?? Doing an activity to relieve stress ?? Counseling ?? Joining a support group What follow-up care is needed? Your doctor may ask you to make visits to the office to check on your progress. Be sure to keep these visits. What drugs may be needed? The doctor may order drugs to: ?? Help with pain ?? Control belly muscle spasms ?? Treat hard or loose stools and signs ?? Fight an infection Be sure to take all drugs as ordered by your doctor. Will physical activity be limited? Physical activity may not be limited. You may be limited by your signs. They may keep you from going to school or work and going to social events. Regular workouts can help improve your bowel function and other signs of IBS. What changes to diet are needed? ?? Keep a diary of what you eat and how your body responds. This way you can figure out if anythingyou eat makes your signs better or worse. Talk to your doctor about it. ?? Your doctor may suggest these changes. Be sure to pay attention to how your signs change with each one. ? Eat high-fiber foods like whole grains, fruits, and vegetables. ? Limit foods that can make you have gas. You may want to avoid onion, cabbage, [place] sprouts, dried beans, lentils, broccoli, and cauliflower. ? Limit foods and drinks with artificial sweeteners. This includes foods with aspartame, sorbitol, and mannitol. ? Limit milk products such as milk, ice cream, and some yogurts. See if this changes your signs. ? Avoid drinks with caffeine, such as coffee and tea. Avoid beer, wine, and mixed drinks (alcohol). ? Avoid foods that make you feel worse. When do I need to call the doctor? ?? Change in your bowel movements that does not go away ?? Blood in your stool ?? Throwing up and loose stools for more than 24 hours ?? You are not feeling better in 2 to 3 days or you are feeling worse Teach Back: Helping You Understand The Teach [...] ?? I can tell you about my condition. ?? I can tell you how I will cope with stress. ?? I can tell you what I will do if I have blood in my bowel movements or a change in my bowel movements that does not go away. Where can I learn more? [employer] [place] https://daa.asn.au/oodgm-nuyoju-mbl-you/hrrlt-wocszq-mjbo-facts/medical/a-guide- sy-lffdwofbs-gzwaz-syndrome/ International Foundation for Functional Gastrointestinal Disorders http://www.aboutibs.org/mncgn-hbi-jqiicmpo-main.html National Digestive Diseases Information Clearinghouse http://digestive.niddk.nih.gov/ddiseases/pubs/ibs/#help Last Reviewed Date 2016-12-14 Consumer Information Use and Disclaimer This information [...] right for you. Copyright Copyright ?? 2019 [employer]. and its affiliates and/or licensors. All rights reserved. documented in this encounter Progress Notes * Seble Bliss NP - 12/24/2018 3:40 PM CDT Images from the original note were not included. Gastroenterology Initial Visit Reason for Visit: Diarrhea (x 6 months abdominal pain, cramps ) and Blood In Stool (x 6 months) History of Present Illness: Paige Zavaleta is a 23-year-old female being seen in clinic for referral by Provider MD Marianna for emergency room follow-up for complaints of nausea and diarrhea x6 months. Notes she thought it might be related to [place]. Notes she tried discontinuing use and did not. She has episode of mucus and blood in stool for about 2 week episodes. Patient was seen in the [facility] emergency room on 12/15/[address] scan of the abdomen and pelvis and was told to follow- up with a GI doctor. Dicyclomine 10 mg QID as needed and taking it 3- 4 times a day. Has been taking since 12/16/2018 andno diarrhea or rectal bleeding. She does not feel hemorrhoids at the rectum. Bowel habits are daily soft and formed or twice a day. No nausea, vomiting, dysphagia, abdominal pain, heart burn or acid reflux. Appropriate appetite. No constipation or diarrhea, no hematochezia ormelena. No weight loss. Patient does note that she is a little stressed about not having a job after her recent graduation in . Prior abdominal surgeries: none. No colonoscopies or EGDs in the past. No prior h/o hepatitis,+ prior tattoos, no prior blood transfusions, no drug use, + ETOH use 5 drinks/week, and no smoking. No family history of GI/Colon Cancer. No history of IBD or IBS. NSAID/Blood thinner use: none LMP: 12/17/2018. ROS: Review of Systems Constitutional: Negative for chills, fever and malaise/fatigue. [...] and [facility] Negative for dizziness and headaches. Endo/Heme/Allergies: Does not bruise/bleed easily. Psychiatric/Behavioral: Positive for depression (Slight ). The patient is not nervous/anxious. Family in [place]. Medications: Current Outpatient Medications: ??? Desogestrel-Ethinyl Estradiol (AZURETTE OR), , Disp: , Rfl: ??? dicyclomine 10 MG capsule, Take 1 capsule (10 mg total) by mouth 4 (four) times daily before meals and nightly., Disp: 240 capsule, Rfl: 0 ??? divalproex DR sprinkle 125 MG capsule, Take 125 mg by mouth 2 (two) times daily., Disp: , Rfl: ??? Levocetirizine Dihydrochloride (XYZAL OR), , Disp: , Rfl: Allergies: No Known Allergies Medical History: Past Medical History: Diagnosis Date ??? Seizures (CMS/HCC) Surgical History: Past Surgical History: Procedure Laterality Date ??? TONSILLECTOMY Social History: Social History Socioeconomic History ??? Marital status: Single Spouse name: Not on file ??? Number of children: Not on file ??? Years of education: Not on file ??? Highest education level: Not on file Occupational History ??? Not on file Social Needs ??? Financial resource strain: Not [...] file Gets together: Not on file Attends confucianism service: Not on file Active member of [...] Social History Narrative ??? Not on file Family History: No family history on file. PE: Filed Vitals: 12/24/18 1550 BP: 118/72 Weight: 131.1 kg (289 lb) Height: 5' 11 (1.803 m) PainSc: 0 (0-10 Scale) Physical Exam Constitutional: She is oriented to [...] mass. There is no hepatosplenomegaly. There is no tenderness. There is no rebound and no guarding. [...] Reviewed: Lab Results Component Value Date WBC 16.0 (H) 12/15/2018 RBC 5.05 12/15/2018 HGB 14.6 12/15/2018 HCT 44.8 12/15/2018 RDW 12.6 12/15/2018 PLT 280 12/15/2018 NA 139 12/15/2018 K 3.4 (L) 12/15/2018 CL 108 12/15/2018 AGAP 8.9 12/15/2018 GLU 86 12/15/2018 BUN 11 12/15/2018 CR 0.80 12/15/2018 GFRNON >90 12/15/2018 GFR >90 12/15/2018 CA 9.5 12/15/2018 ALB 3.4 12/15/2018 ALT 11 (L) 12/15/2018 AST 10 (L) 12/15/2018 ALKP 63 12/15/2018 Imagin12/15/2018 CT of abdomen and pelvis with contrast FINDINGS: ABDOMEN: Imaging of the lung bases [...] right ovarian cyst which is likely physiologic. Endoscopic Results Reviewed: Never performed. Diagnoses/Impression: Hematochezia (primary encounter diagnosis) Abdominal cramping 1. Hematochezia: Patient notes that she does get blood after multiple loose or diarrheal stools when wiping only. Notes that the blood does not occur outside of this timeframe. Since patient has beenon the dicyclomine 10 mg 4 times daily as needed she has not had any more episodes of diarrhea. Andhas been taking the dicyclomine 3 times daily. Patient would like to continue its use and I did refi ll the medication. Patient denies any mucus or bloody diarrhea that initiated without multiple stools pre-cursing. Denies any nocturnal diarrhea or any family history of IBD. Continue on dicyclomine 10 mg QID PRN 2. Comorbid Conditions: Seizures Recommendations and Plan: ?? Patient responding well to dicyclomine will continue to use. Patient notes she only has blood with wiping after multiple loose stools. Notes she does not have any history of IBD in the family. ?? Instructed patient on hemorrhoidal care. I did inform patient that if the rectal bleeding does return to contact GI clinic and will consider performing colonoscopy to rule out any other etiology outside of hemorrhoids for this. Mutually agreed with patient to hold off on endoscopy at this time. ?? Instructed patient on low FODMAP diet that may help limit diarrhea or loose stools by tracking food triggers. ?? Encourage patient to get a PCP to establish. ?? Instructed patient on high potassium rich foods that may help the slightly low potassium levels. ?? It is recommended to consume 20-35 grams of fiber per day and at least 64 ounces/2 liters of water per day. ?? All questions answered ?? Follow-up as needed if symptoms have resumed patient will contact GI clinic for visit. Declined follow-up visit at this time . Orders placed this encounter: Dicyclomine 10 mg 4 times daily before meals and nightly refilled Seble Bliss NP 12/24/2018 documented in this encounter Plan of Treatment Upcoming Encounters Date Type Department Care Team (Late st Contact Info) Description 08/21/2024 4:00 PM CDT Office Visit [facility] Medical Group Family Medicine - [place] [address] [place] [address] Charla Campos PA-C [address] [facility] [place] [address] documented as of this encounter Visit Diagnoses Diagnosis Hematochezia- Primary Blood in stool Abdominal cramping Abdominal pain, unspecified site Irritable bowel syndrome with diarrhea Irritable bowel syndrome documented in this encounter Care Teams Manufacturing Director Relationship Specialty Start Date End Date None, Provider, PCP - General 12/15/18 04/08/19 documented as of this encounter
--- OUTSIDE RECORDS SUMMARY | 2024-06-08 08:11 | XMS_ITS | Clinical Summary ---
Author Organization [facility] Building B Address [address] [place] [address] Care Team Providers Care Scheduling Representative Name Role Phone Karson Payne MD Primary Care Provider [phone]- [phone] Allergies No known active allergies Medications norgestimate-eth inyl estradioL (ORTHO-CYCLEN) 0.25-35 mg-mcg per tablet Take 1 tablet by mouth daily Active azaTHIOprine (IMURAN) 50 mg tablet Take 1 tablet (50 mg total) by mouth daily Active cetirizine (ZyrTEC) 10 mg tablet Take 1 tablet (10 mg total) by mouth daily Active montelukast (SINGULAIR) 10 mg tablet Take 1 tablet (10 mg total) by mouth daily Active Active Problems Problem Noted Date Diagnosed Date Wound infection 04/06/2023 Seizure disorder (CMS/HCC) 11/26/2018 Encounters Date Type Department Care Team Description 03/19/2024 3:20 PM CDT Office Visit [facility] Infectious Diseases [address] [place] [phone] Amanda Barahona MD Cutaneous Mycobacterium marinum infection (Primary Dx); Immunocompromised state (HCC) from Last 3 Months Medical History Medical History Date Comments Seizures (HCC) Social History Tobacco Use Types Packs/Day Years Used Date Smoking Tobacco: Never Smokeless Tobacco: Never Tobacco Cessation:Counseling Given: Not Answered Alcohol Use Standard Drinks/Week Comments Yes 0 (1 standard drink = 0.6 oz pur e alcohol) Personal Safety Answer Date Recorded Have you ever been in or are you currently in a harmful physical or emotional relationship or is someone making you feel afraid or unsafe? Denies 04/07/2023 Comments No Sex and Gender Information Value Date Recorded Sex Assigned at Not on file Legal Sex Female 11:25 AM CDT Gender Identity Female 04/07/2023 6:04 PM MATTRESS FINISHER Sexual Orientation Straight 04/07/2023 6: 04 PM MATTRESS FINISHER Obstetrics History Last Filed Vital Signs Vital Sign Reading Time Taken Comments Blood Pressure 124/84 03/19/2024 3:26 PM CDT Pulse 92 03/19/2024 3:26 PM CDT Temperature 37 ??C (98.6 ??F) 03/19/2024 3:26 PM CDT Respiratory Rate 18 12/12/2023 3:24 PM CDT Oxygen Saturation 99% 12/12/2023 3:24 PM CDT Inhaled Oxygen Concentration - - Weight 152.9 kg (337 lb) 03/19/2024 3:26 PM CDT Height 180 cm (5' 10.87 ) 03/19/2024 3:26 PM CDT Body Mass Index 47.18 03/19/2024 3:26 PM CDT Plan of Treatment Health Maintenance Due Date Last Done Comments Cervical Cancer Screening 1997 Depression Screening 1997 Hepatitis C Screening 1997 Pneumococcal vaccine <65 (1 of 2 - PCV) 2003 DTaP/Tdap/Td Vaccine (1 - Tdap) 2008 Varicella Vaccines (1 of 2 - 13+ 2-dose series) 2010 HPV Vaccines (1 - 3-dose series) 2012 Regular Well Visit/Exam 18-64 2015 Zoster Vaccine (1 of 2) 2016 Covid-19 Vaccine (3 - Pfizer risk series) 04/07/2022 03/10/2022, 02/17/2022, 02/17/2022 Influenza Vaccine (#1) 2024 02/17/2022 Insurance [facility] CHOICE PLUS [facility]PPO Address: [address] [address] [place] [address] [facility] CHO[facility] PLUS [facility]/PPO Address: [address] [address] [place] [address] Advance Directives For more information, please contact: [phone] * Full Code (Latest Code Status on File) Date Activated Date Inactivated Comments 04/07/2023 1:51 AM 04/07/2023 10:03 PM Care Teams Scheduling Representative Relationship Specialty Start Date End Date Karson Payne MD PCP - General Family Medicine 04/07/23
--- OUTSIDE RECORDS SUMMARY | 2024-06-08 08:11 | XMS_ITS | Encounter Summary ---
Author Organization 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 Procedures ECG 12 lead Amanda Barahona MD [address] [place] [address] Phone: tel: fax: [facility] (All Locations) Referral ID Status Reason Start Date Expiration Date V isits Requested Visits Authorized [id number] Authorized 06/13/2023 2024 1 1 SERVICE TEAM MEMBER Reason for Visit * Reason Comments Follow-up Encounter Details Date Type Department Care Team (Latest Contact Info) Description 06/13/2023 3:20 PM MEAT SERVICE TEAM MEMBER Office Visit [facility] Infectious Diseases [address] [place] [address] [address] [place] [address] Amanda Barahona MD [address] [place] [address] Cutaneous Mycobacterium marinum infection (Primary Dx); Encounter for long-term (current) use of antibiotics Social History Tobacco Use Types Packs/Day Years [...] CDT Gender Identity Female 04/07/2023 6:04 PM MEAT SERVICE TEAM MEMBER Sexual Orientation Straight 04/07/2023 6: 04 PM MEAT SERVICE TEAM MEMBER documented as of this encounter Last Filed Vital Signs Vital Sign Reading Time Taken Comments Blood Pressure 127/87 06/13/2023 3:32 PM MEAT SERVICE TEAM MEMBER Pulse 96 06/13/2023 3:32 PM MEAT SERVICE TEAM MEMBER Temperature 36.6 ??C (97.8 ??F) 06/13/2023 3:32 PM CS T Respiratory Rate - - Oxygen Saturation - - Inhaled Oxygen Concentration - - Weight 147.4 kg (325 lb) 06/13/2023 3:32 PM MEAT SERVICE TEAM MEMBER Height 180 cm (5' 10.87 ) 06/13/2023 3:32 PM MEAT SERVICE TEAM MEMBER Body Mass Index 45.5 06/13/2023 3:32 PM MEAT SERVICE TEAM MEMBER documented in this encounter Progress Notes * Amanda Barahona MD - 06/13/2023 3:20 PM CST Infectious Disease Outpatient Follow Up Note Subjective Chief Complaint: wound infection 2/2 M marijenniferum HPI: The patient is a 27 y.o. female with history of childhood seizures and ulcerative colitis (on AZA, infliximab) who presents with 4 month history of nonhealing lacerations on her bilateral lower feet/ankles with recent spread up her right le. This started after falling on rocks/coral in [place]. Lesions have progressed into raised, scaly lesions that have changed color (yellow/black, see media tab). In the past month, she reports new lesions on her right le that had not previously been lacerated or exposed to water. No fever, chills, malaise, or current wound weeping. No response to clindamycin (1 week starting 01/02/23), cefadroxil (2 weeks starting 01/25/23), and terbinafine (3 weeks starting 02/15/23), and minimal response to prescribed topical creams. Biopsy of right ankle lesions showed mixed infiltrate of lymphocytes and histiocytes as well as neutrophils. There was also foreign calcareus material which may be consistent with coral or another sea-dwelling structure. GMS, PAS and Grupo tissue stains were negative for microorganisms. Results of her prior biopsy was favored to represent a hypersensitivity/foreign- body response. However, given the overall appearance of her wounds and new spread that appears lymphangitic, there is likely also an infectious component, potentially an atypical waterborne infection like M. marinum that would not have been treated with prior antibiotics. She reports that her UC has been well-controlled, so cutaneous manifestations of UC are less likely. Patient was discharged on 04/07. Since then, skin biopsy PCR returned with M marinum and the patient was started on azithromycin and ethambutol about a week ago. AFB culture has also started to grow as of 05/05. 05/09/23: No f/c/n/v/d, rash. Tolerating abx without issues. Noted that she maybe has 1-2 new lesions and a possible lesion on the hip that are new since hospitalization. Improving LE edema. No significant pain. - added rifabutin 06/13/23: - did not tolerate the rifamicin - headache, fever, body aches - stopped with resolution of symptoms - otherwise doing well on ethambutol and azithro - tolerating with f/c/n/v/d, rash, no vision changes - rash improving Objective Vitals: Most Recent : BP 127/87 (BP Location: Right arm, Patient Position: Sitting) Pulse 96 Temp 36.6 ??C (97.8 ??F)(Oral) Ht 180 cm (5' 10.87 ) Wt (!) 147.4 kg (325 lb) BMI 45.50 kg/m?? Physical Exam: Physical Exam Constitutional: Appearance: Normal appearance. HENT: Head: Normocephalic. Right Ear: External ear normal. Left Ear: External ear normal. Nose: Nose normal. Eyes: Extraocular Movements: Extraocular movements intact. Conjunctiva/sclera: Conjunctivae normal. Cardiovascular: Rate and Rhythm: Normal rate. Pulmonary: Effort: Pulmonary effort is normal. No respiratory distress. Abdominal: General: There is no distension. Skin: Comments: Improving bilateral violaceous nodular lesions around ankles Neurological: General: No focal deficit present. Mental Status: She is alert. Lab/Radiology/Diagnostic Review: I reviewed the following laboratory and imaging result(s). Micro: Lab Results Component Value Date MICROBIOLOGY (.) 04/07/2023 Preliminary Report: Growth in broth only Mycobacterium marinum Sent for susceptibility testing to [facility], [address], [place], [place] [address] MICROBIOLOGY Final Report: Rare Mixed skin microorganisms. 04/07/2023 MICROBIOLOGY Final Report: No growth of fungus 04/07/2023 MICROBIOLOGY (.) 04/07/2023 Final Report: Mycobacterium marinum For additional result information, see attached scanned report. Notification of: Mycobacterium marinum called to and read back by: Duglas Solis [phone] on 04/27/2023 13:24:38 by: Trent Cabrera MLS Urinalysis:No results for input(s): COLORU , CLARITYU , SPECGRAVU , PHURINE , PROTURQL , GLUCOSEUR , KETONESU , BILIRUBINU , BLOODUR , UROBILINOGUR , NITRITEU , LEUKESTUR , WBCUR in thelast 8736 hours. Hematology/Chemistry: CBC: Lab Results Component Value Date WBC 8.9 06/13/2023 HGB 14.1 06/13/2023 HCT 42.4 06/13/2023 LABPLAT 314 06/13/2023 NEUTOPHILPCT 53.4 06/13/2023 LYMPHOPCT 29.4 06/13/2023 MONOPCT 14.5 06/13/2023 EOSPCT 1.7 06/13/2023 CMP: Lab Results Component Value Date SODIUM 141 06/13/2023 POTASSIUM 3.7 06/13/2023 CHLORIDE 106 06/13/2023 CO2 24 06/13/2023 ANIONGAP 11 06/13/2023 GLUCOSE 68 (L) 06/13/2023 BUNSER 13 06/13/2023 CREATININE 0.75 06/13/2023 CALCIUM 10.1 06/13/2023 ALBUMIN 4.0 06/13/2023 ALKPHOS 58 06/13/2023 ALT 8 06/13/2023 AST 15 06/13/2023 BILITOT 0.2 06/13/2023 Creatinine:Estimated Creatinine Clearance: 127.6 mL/min (by Cockcroft-Gault based on SCr of 0.75 mg/dL). Resulted in the Past 12 Months 06/13/23 1625 04/06/23 2230 CREATININE 0.75 0.73 Inflammatory Markers: Resulted in the Past 12 Months 04/06/23 2230 SEDRATE 17 CRP 17.0* Screening Results RPR:No results found for: LABRPR GC: No results found for: CTRACHOMATIS , NGONORRHOEAE Hepatitis Serologies: No results found for: HEPAIGG , HEPAIGM , HEPBSAG , HEPBSAB , HEPBCAB , HEPCAB Virologic Testing: HIV Screen:No results found for: [id number] CD4:No results found for: CD4ABS , CD4PCT Common Virologic Results: No results found for: SRT6TXF , CD4ABS , CD4PCT , NUCLEOSRT , NONNUCRTMUT , PROTEASEMUT , INTEGRASEMUT , PPD , TOXOIGG Diagnostics: EKG:No results found for: VR , AR , PRIMSEC , QRSIMSEC , QTIMSEC , QT , PA , RA , TA , DIAG Echo: Imaging: No results found. No results found. Assessment/Plan Patient is a 27yo female with PMHx including UC on azathioprine and infliximab who presented with 4months of bilateral ankle non-healing nodular lesions after scraping [place] found to have M marinum infection. Initially identified by PCR though AFB now growing. Unfortunately there are also bacteria growing as well so having to subculture and may take several more weeks for any susceptibility results (and those would not have formal breakpoints). Started on azithromycin 250 and ethambutol on 05/02 when PCR came back identifying M marinum. Azithromycin increased to 500mg daily on 05/09. Did not tolerate addition of rifabutin d/t development of fevers, headaches and myalgias the resolved after stopping. 06/13 - tolerating azithromycin and ethambutol with no s/sx of ADEs after stopping rifabutin and improved nodular skin lesions after ~1.5mo of treatment. Able to discern color on Ishihara color visiontesting today in clinic. Will get EKG with azithro for QTc and safety labs. Continue azithromycin and ethambutol for another 3 months and will re-evaluate at that time. 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 Abdi Barahona MD Infectious Diseases Addiction Medicine My total encounter time on 06/13/2023 was 40 minutes which was spent in the activities documented inthe note. Also includes time spent in other relevant/applicable activities such as time spent in reviewing prior records, discussing assessment/management plan with patient/family, coordinating further care, etc... This includes time spent prior to the visit and after the visit in care of the patient. This time does not include time spent in any separately reportable services. SERVICE TEAM MEMBER documented in this encounter Plan of Treatment Not on file documented as of this encounter Procedures Procedure Name Priority Date/Time Associated Diagnosis Comments EGFR Routine 06/13/2023 4:25 PM MEAT SERVICE TEAM MEMBER 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 DIFFERENTIAL AUTO Routine 06/13/2023 4:2 5 PM MEAT SERVICE TEAM MEMBER 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 CBC WITH AUTO DIFFERENTIAL Routine 06/13/2023 4:25 PM MEAT SERVICE TEAM MEMBER 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 COMPREHENSIVE METABOLIC PANEL Routine 06/13/2023 4:25 PM MEAT SERVICE TEAM MEMBER 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 documented in this encounter Results * eGFR (06/13/2023 4:25 PM MEAT SERVICE TEAM MEMBER) eGFR >90 >=60 mL/min/1. 73 m2 [facility] Comment: Interpretive Data Reference Interval Normal ?>/= 90 mL/min/1.73m2 Mildly decreased* ? 60 - 89 mL/min/1.73m2 Mildly to moderately decreased ?45 - 59 mL/min/1.73m2 Moderately to severely decreased ??30 - 44 mL/min/1.73m2 Severely decreased ?15 - 29 mL/min/1.73m2 Kidney Failure ?< 15 ??mL/min/1.73m2 *Relative to young adult level Estimated glomerular filtration rate is determined by the 2020 CKD-EPI equation recommended by the National Kidney Foundation (A Unifying Approach to GFR Estimation: Recommendations of the NKF-ASK Task Force on Reassessing the Inclusion of Race in Diagnosing Kidney Disease, JASN 2020). The CKD-EPI equation should not be used for patients with unstable renal function and has not been validated in children and those over 70. Current interpretive data was last reviewed 2021. Blood 06/13/2023 4:25 PM MEAT SERVICE TEAM MEMBER 06/13/2023 6:53 PM MEAT SERVICE TEAM MEMBER Amanda Barahona MD LAB BLOOD ORDERABLES Fi nal Result [facility] [place] [address] * (ABNORMAL) Differential, auto (06/13/2023 4:25 PM MEAT SERVICE TEAM MEMBER) Pathologist [facility] Neutrophil abs 4.8 1.5 - 6.5 K/cumm [facility] Imm gran abs 0.0 0.0 - 0.1 K/cumm [facility] Lymphocyte abs 2.6 0.8 - 3.3 K/cumm [facility] Monocyte abs 1.3(H) 0.2 - 0.8 K/cumm [facility] Eosinophil abs 0.2 0.0 - 0.5 K/cumm [facility] Basophil abs 0.1 0.0 - 0.1 K/cumm [facility] Neutrophil pct 53.4 % [facility] Comment: Interpretive Data Percent cell count reference ranges are not reported, since discordance with absolute values may lead to misinterpretation of CBC data. Current Interpretive Data was last revised on 2017. Imm gran pct 0.3 % [facility] Comment: Interpretive Data Percent cell count reference ranges are not reported, since discordance with absolute values may lead to misinterpretation of CBC data. Current Interpretive Data was last revised on 2017. Lymphocyte pct 29.4 % [facility] Comment: Interpretive Data Percent cell count reference ranges are not reported, since discordance with absolute values may lead to misinterpretation of CBC data. Current Interpretive Data was last revised on 2017. Monocyte pct 14.5 % [facility] Comment: Interpretive Data Percent cell count reference ranges are not reported, since discordance with absolute values may lead to misinterpretation of CBC data. Current Interpretive Data was last revised on 2017. Eosinophil pct 1.7 % [facility] Comment: Interpretive Data Percent cell count reference ranges are not reported, since discordance with absolute values may lead to misinterpretation of CBC data. Current Interpretive Data was last revised on 2017. Basophil pct 0.7 % [facility] Comment: Interpretive Data Percent cell count reference ranges are not reported, since discordance with absolute values may lead to misinterpretation of CBC data. Current Interpretive Data was last revised on 2017. Blood 06/13/2023 4:25 PM MEAT SERVICE TEAM MEMBER 06/13/2023 6:47 PM MEAT SERVICE TEAM MEMBER Amanda Barahona MD LAB BLOOD ORDERABLES Fi nal Result [facility] [place] [address] * (ABNORMAL) Comprehensive metabolic panel (06/13/2023 4:25 PM MEAT SERVICE TEAM MEMBER) Pathologist [facility] Sodium 141 135 - 145 mmol/L [facility] Potassium, pl 3.7 3.3 - 4.9 mmol/L [facility] Chloride 106 97 - 110 mmol/L [facility] CO2 24 22 - 32 mmol/L [facility] Anion gap 11 2 - 15 mmol/L [facility] BUN 13 6 - 25 mg/dL [facility] Creatinine 0.75 0.60 - 1.10 mg/dL [facility] Glucose 68(L) 70 - 199 mg/dL [facility] Comment: Interpretive Data Fasting glucose >/= 126 mg/dl is diagnostic for diabetes. ?? Fasting is defined as no caloric intake for at least 8 hours. Fasting glucose between 100 mg/dl to 125 mg/dl is diagnostic of prediabetes. In a patient with classic symptoms of hyperglycemia or hyperglycemic crisis, a random glucose >/= 200 mg/dl is diagnostic for diabetes. In the absence of unequivocal hyperglycemia, results should be confirmed by repeat testing. The classification and Diagnosis of Diabetes Diabetes Care 2021; 46: S19-S40. Current interpretive data was last revised 2022. Calcium 10.1 8.5 - 10.3 mg/dL [facility] Bilirubin, total 0.2 0.1 - 1.2 mg/dL [facility] Protein, pl 7.6 6.5 - 8.5 g/dL [facility] Albumin 4.0 3.5 - 5.0 g/dL [facility] Alk phos 58 40 - 130 Units/L [facility] ALT 8 7 - 45 Units/L [facility] AST 15 10 - 45 Units/L [facility] Blood 06/13/2023 4:25 PM MEAT SERVICE TEAM MEMBER 06/13/2023 6:47 PM MEAT SERVICE TEAM MEMBER Amanda Barahona MD LAB BLOOD ORDERABLES Fi nal Result [facility] Department [place] [address] * CBC with auto differential (06/13/2023 4:25 PM MEAT SERVICE TEAM MEMBER) Pathologist [facility] WBC 8.9 3.8 - 9.9 K/cumm [facility] Hgb 14.1 11.9 - 15.5 g/dL [facility] Hct 42.4 35.6 - 45.5 % [facility] Plt 314 150 - 400 K/cumm [facility] MPV 10.4 9.1 - 12.3 fL [facility] RBC 4.78 3.90 - 5.20 M/cumm [facility] MCV 88.7 81.3 - 96.4 fL [facility] MCH 29.5 27.1 - 33.3 pg [facility] MCHC 33.3 32.3 - 35.7 g/dL [facility] RDW CV 13.4 11.1 - 14.9 % [facility] RDW SD 43.8 35.7 - 48.1 fL [facility] NRBC abs 0.00 0.00 - 0.01 K/cumm [facility] Blood 06/13/2023 4:25 PM MEAT SERVICE TEAM MEMBER 06/13/2023 6:47 PM MEAT SERVICE TEAM MEMBER Amanda Barahona MD LAB BLOOD ORDERABLES Fi nal Result [facility] Department [place] [address] documented in this encounter Visit Diagnoses Diagnosis Cutaneous Mycobacterium marinum infection- Primary Encounter for long-term (current) use of antibiotics documented in this encounter Orders EKG Orders Without Results Count Last Ordered D ate First Ordered Date ECG 12-LEAD 1 06/13/2023 documented in this encounter Care Teams Absorption Plant Operator Helper Relationship Specialty Start Date End Date Karson Payne MD PCP - General Family Medicine 04/07/23 documented as of this encounter
--- OUTSIDE RECORDS SUMMARY | 2024-06-08 08:11 | XMS_ITS | Encounter Summary ---
Author Organization [facility] Healthcare Address [address] [place] [address] Care Team Providers Care Job Press Operator Name Role Phone Wade Nickerson MD PhD Primary Care Provider Encounter Details Date Type Department Care Team (Late st Contact Info) Description 12/03/2018 Telephone [facility] Neurodiagnostics [address] [place] [address] Maura Hager Social History Tobacco Use Types Packs/Day Years Used Date Smoking Tobacco: Never Smokeless Tobacco: Never Alcohol Use Standard Drinks/Week Comments Yes 0 (1 standard drink = 0.6 oz pur e alcohol) Comments Unknown Sex and Gender Information Value Date Recorded Sex Assigned at Not on file Legal Sex Female 11:25 AM CDT Gender Identity Female 04/07/2023 6:04 PM FOOTBALL SCOUT Sexual Orientation Straight 04/07/2023 6: 04 PM FOOTBALL SCOUT documented as of this encounter Miscellaneous Notes * Telephone Encounter - Maura Hager - 12/03/2018 10:53 AM CDT Paige called to cancel her EEG. We are not in network with her insurance. documented in this encounter Plan of Treatment Not on file documented as of this encounter Visit Diagnoses Not on filedocumented in this encounter Care Teams Job Press Operator Relationship Specialty Start Date End Date Wade Nickerson MD PhD [address] [address] [place] [address] PCP - General Neurology 11/26/18 04/06/23 documented as of this encounter
--- OUTSIDE RECORDS SUMMARY | 2024-06-08 08:11 | XMS_ITS | Encounter Summary ---
Author Organization [facility] Address [address] [place] [address] Care Team Providers Care Mud Temperer Name Role Phone Wade Nickerson MD PhD Primary Care Provider Encounter Details Date Type Department Care Team (Late st Contact Info) Description 12/04/2018 Telephone [facility] [address] [place] [address] Geovanna Bullard MA Social History Tobacco Use Types Packs/Day Years Used Date Smoking Tobacco: Never Smokeless Tobacco: Never Alcohol Use Standard Drinks/Week Comments Yes 0 (1 standard drink = 0.6 oz pur e alcohol) Comments Unknown Sex and Gender Information Value Date Recorded Sex Assigned at Not on file Legal Sex Female 11:25 AM CDT Gender Identity Female 04/07/2023 6:04 PM SUBSTANCE ABUSE CLINICIAN Sexual Orientation Straight 04/07/2023 6: 04 PM SUBSTANCE ABUSE CLINICIAN documented as of this encounter Miscellaneous Notes * Telephone Encounter - Geovanna Bullard MA - 12/05/2018 10:54 AM CDT Attempted to return patient call no answer, will try back later. * Telephone Encounter - Wade Nickerson MD PhD - 12/04/2018 2:39 PM CDT I am surprised that the epilepsy Center at [facility] is out of network as I thought we were all on the same plans. In any event she could check with Dr. James Torres at [facility] who has an epilepsy center there. He is very good. * Telephone Encounter - Geovanna Bullard MA - 12/04/2018 9:46 AM CDT Patient LVM stating that she was referred to Epilepsy Center which is out of network. Would there somewhere else that is in network? Please Advise documented in this encounter Plan of Treatment Not on file documented as of this encounter Visit Diagnoses Not on filedocumented in this encounter Care Teams Mud Temperer Relationship Specialty Start Date End Date Wade Nickerson MD PhD [address] [place] [address] PCP - General Neurology 11/26/18 04/06/23 documented as of this encounter
--- OUTSIDE RECORDS SUMMARY | 2024-06-08 08:11 | XMS_ITS | Encounter Summary ---
Author Organization [facility] Healthcare Address [address] [place] [address] Care Team Providers Care Supervisor [employer] Name Role Phone Karson Payne MD Primary Care Provider [phone] Encounter Details Date Type Department Care Team (Latest Contact Info) Description 09/12/2023 4:03 PM CDT - 09/12/2023 11:59 PM CDT Hospital Encounter [address] [address] Discharge Disposition: Discharge to home or self care Social History Tobacco Use Types Packs/Day Years [...] CDT Gender Identity Female 04/07/2023 6:04 PM ASSEMBLIES AND INSTALLATIONS INSPECTOR Sexual Orientation Straight 04/07/2023 6: 04 PM ASSEMBLIES AND INSTALLATIONS INSPECTOR documented as of this encounter Medications at Time of Discharge azaTHIOprine (IMURAN) 50 mg tablet Take 1 tablet (50 mg total) by mouth daily cetirizine (ZyrTEC) 10 mg tablet Take 1 tablet (10 mg total) by mouth daily montelukast (SINGULAIR) 10 mg tablet Take 1 tablet (10 mg total) by mouth daily norgestimate-ethi nyl estradioL (ORTHO-CYCLEN) 0.25-35 mg-mcg per tablet Take 1 tablet by mouth daily azithromycin (ZITHROMAX) 500 mg tabletIndications :Mycobacteriosis Take 1 tablet (500 mg total) by mouth daily 90 tablet 1 09/12/2023 09/22/2023 ethambutoL (MYAMBUTOL) 400 mg tabletIndications :Mycobacteriosis Take 4 tablets (1,600 mg total) by mouth daily 360 tablet 1 09/12/2023 09/22/2023 documented as of this encounter Discharge Disposition Disposition Code Departure Means Destination Discharge to home or self care documented in this encounter Plan of Treatment Not on file documented as of this encounter Visit Diagnoses Not on filedocumented in this encounter Care Teams Supervisor [employer] Relationship Specialty Start Date End Date Karson Payne MD PCP - General Family Medicine 04/07/23 documented as of this encounter
--- OUTSIDE RECORDS SUMMARY | 2024-06-08 08:11 | XMS_ITS | Encounter Summary ---
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 the laboratory for pathologic evaluation. The content of this report is essential for diagnosis and may provide important critical findings. This information may be unfamiliar to patients to review without a medical professional present. It is advised that the patient review this report in the presence of a health care provider who can answer questions and explain the details. SURGICAL PATHOLOGY REPORT FINAL Patient Name: ?? ZOLTAN SPRAGUE Gender: ??F : ??1995 (Age: 27) Address: ??[address] [place] [id number] [facility] #: ??[id number] Taken:04/07/2023 Received:04/07/2023 Reported: 04/11/2023 Patient Type: [facility] Inpatient ?? Service: Medical Location: [facility] ED Physician(s): ??Alexus Martin M.D. Diagnosis: A. ??Skin, right leg, punch biopsy: ? Cutaneous mycobacterial infection B. ??Skin, left leg, punch biopsy: ? Cutaneous mycobacterial infection ? jn/04/10/2023 11:09 By this signature, I attest that the above diagnosis is based upon my personal examination of the slides(and/or other material indicated in the diagnosis). Tanja Sarkar M.D. Report Electronically Reviewed and Signed Out By ??Tanja Sarkar M.D. 04/11/2023 11:49:37 Microscopic Description and Comment: A-B.In a background of suppurative granulomatous inflammation, an AFB stain highlights rare bacilli. ??Gram, GMS and Grupo stains are negative. (A31.1) Microscopic slide review and interpretation for this case was performed at the Dermatopathology Center, ??Department of Pathology ??and Immunology, [facility], [address] [place] [address], [address], [place], [place] ??[address] ?? CLIA # [id number] History: The patient is a 27-year-old woman presenting for erythematous, crusted verrucous papules and plaques with lymphangitic spread rule out atypical mycobacterium infection versus deep fungal infection. ??Operative procedure: Skin punch biopsies. Specimen(s) Received: A: Skin, right leg, punch biopsy B: Skin, left leg, punch biopsy Gross Description: Received in two formalin jars labeled with the patient's identifiers. A. ??Labeled right leg is a 0.6 x 0.6 cm skin punch excised to a depth of 0.8 cm. The skin surface is villavicencio-pink with a raised macule. The margin is inked blue. The specimen is bisected. ?? Labeled A1. Jar 0. B. ??Labeled left leg is a 0.6 x 0.6 cm skin punch excised to a depth of 0.8 cm. The skin surface is villavicencio-red with a suture at one edge which is removed for processing. The margin is inked blue. The specimen is bisected. ?? Labeled B1. Jar 0. ?? elsw/04/07/2023 14:44 PA(s): Marii Wasserman By this signature, I attest that the above diagnosis is based upon my personal examination of the slides(and/or other material). Addenda/Procedures The performance characteristics of some immunohistochemical stains, fluorescence in-situ hybridization tests and immunophenotyping by flow cytometry cited in this report (if any) were determined by the Surgical Pathology and Flow Cytometry Departments at [facility] as part of an ongoing quality reviewer program and in compliance with federally mandated regulations drawn from the Clinical Laboratory Improvement Act of 1988 (CLIA '88). ??Some of these tests rely on the use of analyte specific reagents and are subject to specific labeling requirements by the US Food and Drug Administration. ??Such diagnostic tests may only be performed in a facility that is certified by the Department of Health and Human Services as a high complexity laboratory under CLIA '88. ??The FDA has determined that such clearance or approval is not necessary. ??This test is used for clinical purposes. ??It should not be regarded as investigational or for research. ??Nevertheless, federal rules concerning the medical use of analyte specific reagents require that the following disclaimer be attached to the report: This test was developed and its performance characteristics determined by the Surgical Pathology and Flow Cytometry Departments of [facility]. ??It has not been cleared or approved by the U. S. Food and Drug Administration. IMAGES AND SCANNED DOCUMENTS, IF INCLUDED, ONLY VIEWABLE IN PDF VERSION OF REPORT us Alexus Martin MD LAB PATHOLOGY ORDERABLES Final Result Performing Organization Address City/[facility]/ZIP Co de Phone Number PATHOLOGY [facility] 3rd Floor [place], [place] [phone] * (ABNORMAL) Miscellaneous microbiology test Miscellaneous Miscellaneous (04/07/2023 2:15 PM AIRWAY TRAFFIC CONTROLLER) Report Final Report: Mycobacterium marinum For additional result information, see attached scanned report. Notification of: Mycobacterium marinum called to and read back by: Duglas Solis [phone] on 04/27/2023 13:24:38 by: Trent Cabrera MLS (.) [facility] Organism MYCOBACTERIUM MARINUM [facility] Miscellaneous (Miscellaneous) 04/07/2023 2:15 PM AIRWAY TRAFFIC CONTROLLER 04/11/2023 2:15 PM AIRWAY TRAFFIC CONTROLLER Narrative [facility] - 04/27/2023 1:24 PM AIRWAY TRAFFIC CONTROLLER Test AFB PCR Testing Specimen ??biopsy right leg [facility] ([phone]) us Maria Isabel Reid MD LAB MICROBIOLOGY - GENERAL O RDERABLES Final Result Performing Organization Address City/[facility]/ZIP Co de Phone Number [facility] Department [place] [address] * Bartonella antibody panel Blood (04/07/2023 2:00 PM AIRWAY TRAFFIC CONTROLLER) B Henselae, IgG <1:128 <1:128 titer [facility] B Henselae, IgM <1:20 <1:20 titer [facility] B. Hagan, IgG <1:128 <1:128 titer [facility] B. Hagan, IgM <1:20 <1:20 titer [facility] Comment: ADDITIONAL INFORMATION This test was developed and its performance characteristics determined by [facility] in a manner consistent with CLIA requirements. This test has not been cleared or approved by the U.S. Food and Drug Administration. Test Performed by: [facility] [place] [address] Manager Quality Systems: Rosales Alba M.D. Ph.D.; CLIA# [id number] Blood 04/07/2023 2:00 PM AIRWAY TRAFFIC CONTROLLER 04/07/2023 6:47 PM AIRWAY TRAFFIC CONTROLLER Maria Isabel Reid MD LAB MICROBIOLOGY - GENERAL O RDERABLES Final Result [facility] Department [place] [address] * Blastomyces antibody, EIA, serum Blood (04/07/2023 2:00 PM AIRWAY TRAFFIC CONTROLLER) [facility] Blastomyces Antibody Negative Negative [facility] Comment: A single negative result does not exclude the diagnosis of blastomycosis. ??Repeat testing on a new sample in 7-14 days if clinically indicated. Test Performed by: [place] [address] Manager Quality Systems: Rosales Alba M.D. Ph.D.; CLIA# [id number] Blood 04/07/2023 2:00 PM AIRWAY TRAFFIC CONTROLLER 04/07/2023 2:59 PM AIRWAY TRAFFIC CONTROLLER us Maria Isabel Reid MD LAB MICROBIOLOGY - GENERAL O RDERABLES Final Result Performing Organization Address [facility] Co de Phone Number [facility] [place] [address] * Histoplasma Antibody Blood (04/07/2023 2:00 PM AIRWAY TRAFFIC CONTROLLER) Histoplasma Ab, mycelial CF Negative Negative [facility] Histoplasma Ab, yeast CF Negative Negative [facility] Histoplasma Ab, Immunodiffusion Negative Negative [facility] Comment: A negative complement fixation and immunodiffusion (CF/ID) result does not exclude the diagnosis of histoplasmosis. ?? Repeat testing by CF/ID in 1-2 weeks if clinically indicated. Test Performed by: [place] [address] Manager Quality Systems: Rosales Alba M.D. Ph.D.; IA# [id number] Blood 04/07/2023 2:00 PM AIRWAY TRAFFIC CONTROLLER 04/07/2023 2:59 PM AIRWAY TRAFFIC CONTROLLER us Maria Isabel Reid MD LAB MICROBIOLOGY - GENERAL O RDERABLES Final Result Performing Organization Address [facility] de Phone Number [facility] [place] [address] * Cryptococcal Antigen, Serum Blood (04/06/2023 10:48 PM AIRWAY TRAFFIC CONTROLLER) Cryptococcus ag, Serum Negative Negative [facility] Comment: The cryptococcal antigen test was performed using the IMMY CrAg Lateral Flow Assay. This assay is FDA cleared for serum and CSF specimens and for the detection of Cryptococcus neoformans and Cryptococcus gattii. If the result is positive, the specimen will be titered and reported from less than 1:5 to greater than or equal to 1:2560. This assay does not distinguish between C. neoformans and C. gattii. Testing hemolyzed serum samples may lead to false negatives. Current interpretive data last revised 2018. Blood 04/06/2023 10:4 8 PM AIRWAY TRAFFIC CONTROLLER 04/06/2023 10:55 PM AIRWAY TRAFFIC CONTROLLER Thang Tinoco MD LAB MICROBIOLOGY - GE NERAL ORDERABLES Final Result Performing Organization Address [facility] de Phone Number [facility] [place] [employer] [place] [address] * Histoplasma Antigen Urine (04/06/2023 10:48 PM AIRWAY TRAFFIC CONTROLLER) Pathologist [facility] Histo Ag Ur result None Detected None Detected [facility] Histo Ag Ur interp Negative Negative [facility] Comment: Result Interpretation: Reference interval: None Detected Results reported as ng/mL in 0.20 - 20.00 ng/mL range Results above 20.00 ng/mL are reported as 'Positive, Above the Limit of Quantification' Testing Performed by: [facility], [address] [place] [address] [place] [facility]. This test was developed and its performance characteristics determined by [facility]. It has not been cleared or approved by the FDA; however, FDA clearance or approval is not currently required for clinical use. The results are not intended to be used as the sole means for clinical diagnosis or patient management decisions. Interpretative data updated 07/27/2020 Urine 04/06/2023 10:4 8 PM AIRWAY TRAFFIC CONTROLLER 04/06/2023 10:55 PM AIRWAY TRAFFIC CONTROLLER Thang Tinoco MD LAB MICROBIOLOGY - GE NERAL ORDERABLES Final Result Performing Organization Address [facility] de Phone Number [facility] [place] [address] * eGFR (04/06/2023 10:30 PM AIRWAY TRAFFIC CONTROLLER) Pathologist [facility] eGFR >90 >=60 mL/min/1. 73 m2 [facility] Comment: Interpretive Data Reference Interval Normal [...] interpretive data was last reviewed 2021. Blood 04/06/2023 10:3 0 PM AIRWAY TRAFFIC CONTROLLER 04/06/2023 10:42 PM AIRWAY TRAFFIC CONTROLLER us Vanna Georges MD LAB BLOOD ORDERABLES Final Re sult [facility] Department [place] [address] * (ABNORMAL) Differential, auto (04/06/2023 10:30 PM AIRWAY TRAFFIC CONTROLLER) Neutrophil abs 4.6 1.7 - 6.5 K/cumm [facility] Imm gran abs 0.0 0.0 - 0.1 K/cumm [facility] Lymphocyte abs 3.2 0.8 - 3.3 K/cumm [facility] Monocyte abs 1.4(H) 0.2 - 0.8 K/cumm [facility] Eosinophil abs 0.2 0.0 - 0.5 K/cumm [facility] Basophil abs 0.1 0.0 - 0.1 K/cumm [facility] Neutrophil pct 48.0 % [facility] Comment: Interpretive Data Percent cell count reference ranges are not reported, since discordance with absolute values may lead to misinterpretation of CBC data. Current Interpretive Data was last revised on 2017. Imm gran pct 0.1 % [facility] Comment: Interpretive Data Percent cell count reference ranges are not reported, since discordance with absolute values may lead to misinterpretation of CBC data. Current Interpretive Data was last revised on 2017. Lymphocyte pct 33.8 % [facility] Comment: Interpretive Data Percent cell count reference ranges are not reported, since discordance with absolute values may lead to misinterpretation of CBC data. Current Interpretive Data was last revised on 2017. Monocyte pct 15.1 % [facility] Comment: Interpretive Data Percent cell count reference ranges are not reported, since discordance with absolute values may lead to misinterpretation of CBC data. Current Interpretive Data was last revised on 2017. Eosinophil pct 2.1 % [facility] Comment: Interpretive Data Percent cell count reference ranges are not reported, since discordance with absolute values may lead to misinterpretation of CBC data. Current Interpretive Data was last revised on 2017. Basophil pct 0.9 % [facility] Comment: Interpretive Data Percent cell count reference ranges are not reported, since discordance with absolute values may lead to misinterpretation of CBC data. Current Interpretive Data was last revised on 2017. Blood 04/06/2023 10:3 0 PM AIRWAY TRAFFIC CONTROLLER 04/06/2023 10:41 PM AIRWAY TRAFFIC CONTROLLER us Vanna Georges MD LAB BLOOD ORDERABLES Final Re sult [facility] [place] [address] * IgA (04/06/2023 10:30 PM AIRWAY TRAFFIC CONTROLLER) Immunoglobulin A 137.0 70.0 - 400.0 mg/dL [facility] Blood 04/06/2023 10:3 0 PM AIRWAY TRAFFIC CONTROLLER 04/06/2023 10:42 PM AIRWAY TRAFFIC CONTROLLER us Vanna Georges MD LAB BLOOD ORDERABLES Final Re sult Performing Organization Address [facility] Co de Phone Number [facility] [place] [address] * IgM (04/06/2023 10:30 PM AIRWAY TRAFFIC CONTROLLER) Pathologist [facility] Immunoglobulin M 179.0 40.0 - 230.0 mg/dL [facility] Blood 04/06/2023 10:3 0 PM AIRWAY TRAFFIC CONTROLLER 04/06/2023 10:42 PM AIRWAY TRAFFIC CONTROLLER Result Shayla Georges MD LAB BLOOD ORDERABLES Final Re sult Performing Organization Address [facility] de Phone Number [facility] [place] [address] * IgG (04/06/2023 10:30 PM AIRWAY TRAFFIC CONTROLLER) [facility] Immunoglobulin G 1,254.0 700.0 - 1,600.0 mg/dL [facility] Blood 04/06/2023 10:3 0 PM AIRWAY TRAFFIC CONTROLLER 04/06/2023 10:42 PM AIRWAY TRAFFIC CONTROLLER us Vanna Georges MD LAB BLOOD ORDERABLES Final Re sult Performing Organization Address [facility] de Phone Number [facility] [place] [employer] [place] [address] * POCT rapid HIV (04/06/2023 10:30 PM AIRWAY TRAFFIC CONTROLLER) [facility] Rapid HIV, POC Negative Negative Lot Number [id number] QC Control Line Acceptable Blood 04/06/2023 10:3 0 PM AIRWAY TRAFFIC CONTROLLER us Vanna Georges MD POINT OF CARE TEST ORDERABLES Final Result * (ABNORMAL) CRP (acute phase) (04/06/2023 10:30 PM AIRWAY TRAFFIC CONTROLLER) CRP 17.0(H) <=10.0 mg/L [facility] Blood 04/06/2023 10:3 0 PM AIRWAY TRAFFIC CONTROLLER 04/06/2023 10:42 PM AIRWAY TRAFFIC CONTROLLER Vanna Georges MD LAB BLOOD ORDERABLES Final Re sult Performing Organization Address [facility]/ZIP Co de Phone Number [facility] [place] [address] * Erythrocyte sedimentation rate (04/06/2023 10:30 PM AIRWAY TRAFFIC CONTROLLER) Pathologist [facility] Erythrocyte sedimentation rate 17 1 - 20 mm/hr [facility] Blood 04/06/2023 10:3 0 PM AIRWAY TRAFFIC CONTROLLER 04/06/2023 10:41 PM AIRWAY TRAFFIC CONTROLLER Vanna Georges MD LAB BLOOD ORDERABLES Final Re sult Performing Organization Address [facility] de Phone Number [facility] [place] [address] * Comprehensive metabolic panel (04/06/2023 10:30 PM AIRWAY TRAFFIC CONTROLLER) Pathologist [facility] Sodium 137 135 - 145 mmol/L [facility] Potassium, pl See Comment 3.3 - 4.9 mmol/L [facility] Comment:Credited; Hemolyzed Specimen Chloride 106 97 - 110 mmol/L [facility] CO2 26 22 - 32 mmol/L [facility] Anion gap 5 2 - 15 mmol/L [facility] BUN 11 6 - 25 mg/dL [facility] Creatinine 0.73 0.60 - 1.10 mg/dL [facility] Glucose 84 70 - 199 mg/dL [facility] Comment: Interpretive Data Fasting glucose >/= [...] interpretive data was last revised 2022. Calcium 9.8 8.5 - 10.3 mg/dL [facility] Bilirubin, total 0.2 0.1 - 1.2 mg/dL [facility] Protein, pl 8.4 6.5 - 8.5 g/dL [facility] Albumin 4.2 3.5 - 5.0 g/dL [facility] Alk phos 55 40 - 130 Units/L [facility] Comment:Hemolyzed; result ma y be falsely decreased ALT See Comment 7 - 45 Units/L [facility] Comment:Credited; Hemolyzed Specimen AST See Comment 10 - 45 Units/L [facility] Comment:Credited; Hemolyzed Specimen Blood 04/06/2023 10:3 0 PM AIRWAY TRAFFIC CONTROLLER 04/06/2023 10:42 PM AIRWAY TRAFFIC CONTROLLER us Vanna Georges MD LAB BLOOD ORDERABLES Final Re sult [facility] [place] [address] * CBC with auto differential (04/06/2023 10:30 PM AIRWAY TRAFFIC CONTROLLER) WBC 9.5 3.8 - 9.9 K/cumm [facility] Hgb 13.8 11.9 - 15.5 g/dL [facility] Comment: Interpretive Data A reference range for this assay has not been established for patients with an unknown legal sex. Please refer to the laboratory test catalog for established sex-specific reference intervals. Current interpretive data was last revised on 2023. Hct 42.2 35.6 - 45.5 % [facility] Comment: Interpretive Data A reference range for this assay has not been established for patients with an unknown legal sex. Please refer to the laboratory test catalog for established sex-specific reference intervals. Current interpretive data was last revised on 2023. Plt 351 150 - 400 K/cumm [facility] MPV 10.0 9.1 - 12.3 fL [facility] RBC 4.79 3.90 - 5.20 M/cumm [facility] Comment: Interpretive Data A reference range for this assay has not been established for patients with an unknown legal sex. Please refer to the laboratory test catalog for established sex-specific reference intervals. Current interpretive data was last revised on 2023. MCV 88.1 81.3 - 96.4 fL [facility] MCH 28.8 27.1 - 33.3 pg [facility] MCHC 32.7 32.3 - 35.7 g/dL [facility] RDW CV 13.3 11.1 - 14.9 % [facility] RDW SD 43.0 35.7 - 48.1 fL [facility] NRBC abs 0.00 0.00 - 0.01 K/cumm [facility] Blood 04/06/2023 10:3 0 PM AIRWAY TRAFFIC CONTROLLER 04/06/2023 10:41 PM AIRWAY TRAFFIC CONTROLLER Vanna Georges MD LAB BLOOD ORDERABLES Final Re sult Performing Organization Address [facility] de Phone Number [facility] [place] [address] * (ABNORMAL) Valproic acid level, total (04/06/2023 10:30 PM AIRWAY TRAFFIC CONTROLLER) Valproic Acid <15.0(L) 50.0 - 100.0 mcg/mL [facility] Comment: Interpretive Data Therapeutic or toxic effects of anticonvulsant drugs may occur at different concentrations in different patients and the correlation between dose and clinical effect must be evaluated individually. Current interpretative data was last revised on 13. 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 classified Wound infection Posttraumatic wound infection not elsewhere classified documented in this encounter Admitting Diagnoses Diagnosis Wound infection Posttraumatic wound infection not elsewhere classified documented in this encounter Administered Medications Inactive Administered Medications - up to 3 most recent administrations Medication Order MAR Action Action Date Dose Rate Site acetaminophen (TYLENOL) tablet 1,000 mg 1,000 mg, oral, Every 8 hours PRN, 1st line for pain, fever, fever greater than 38.3 C, Starting on Mon04/07/23 at 0151, Indications: Fever, PainIndications:Fever,P ain Given 04/07/2023 2:59 PM AIRWAY TRAFFIC CONTROLLER 1,000 mg azaTHIOprine (IMURAN) tablet 50 mg 50 mg, oral, Daily, First dose on Mon04/08/23 at 0900 Carrier Fluids for Secondary Infusion - 0.9% Sodium Chloride 30 mL, intravenous, As needed, For priming tubing and/or flushing, Starting on Mon04/07/23 at 0151, 0-250 ml/hr to flush line after IV infusions when no maintenance IV ordered. Infuse 30mL at the same rate as the secondary infusion. Run as primary IV, not intended for KVO. cetirizine (ZyrTEC) tablet 10 mg 10 mg, oral, Daily, First dose on Mon04/08/23 at 0900 enoxaparin (LOVENOX) syringe 40 mg 40 mg, subcutaneous, Every 12 hours scheduled, First dose (after last modification) on Mon04/07/23 at 0900, Indications: Deep Vein Thrombosis PreventionIndications:D eep Vein Thrombosis Prevention Given 04/07/2023 8:28 AM AIRWAY TRAFFIC CONTROLLER 40 mg Right Lower Abdomen montelukast (SINGULAIR) tablet 10 mg 10 mg, oral, Daily, First dose (after last modification) on Mon04/08/23 at 0900 norgestimate-ethinyl estradioL (ORTHO-CYCLEN) 0.25-35 mg-mcg per tablet 1 tablet 1 tablet, oral, Daily, First dose on Mon04/07/23 at 1300 Given 04/07/2023 1:00 PM AIRWAY TRAFFIC CONTROLLER 1 tablet prochlorperazine (COMPAZINE) injection 5 mg 5 mg, intravenous, Administer over 2 Minutes, Every 6 hours PRN, nausea, vomiting, Use if unable to tolerate PO, Starting on Mon04/07/23 at 0151, Indications: Nausea and VomitingIndications:Keaton sea and Vomiting prochlorperazine (COMPAZINE) tablet 5 mg 5 mg, oral, Every 6 hours PRN, nausea, vomiting, Starting on Mon04/07/23 at 0151, Indications: Nausea and VomitingIndications:Keaton sea and Vomiting sodium chloride 0.9% flush 0.5-20 mL 0.5-20 mL, intra-catheter, Every 8 hours scheduled, First dose on Mon04/07/23 at 0600, Flush volume based on line type and size. Given 04/07/2023 2:18 PM AIRWAY TRAFFIC CONTROLLER 20 mL sodium chloride 0.9% flush 0.5-20 mL 0.5-20 mL, intra-catheter, Every 8 hours scheduled, First dose on Mon04/07/23 at 0600, Flush volume based on line type and size. Given 04/07/2023 2:19 PM AIRWAY TRAFFIC CONTROLLER 10 mL sodium chloride 0.9% flush 0.5-20 mL 0.5-20 mL, intra-catheter, As needed, line care, Starting on Mon04/07/23 at 0151, Flush volume based on line type and size. Flush before and after each use. documented in this encounter Discontinued Medications Medication Sig Discontinue Reason Start Date End Da te divalproex (DEPAKOTE SPRINKLE) 125 mg capsule TAKE 3 CAPSULES BY MOUTH IN THE MORNING AND 4 IN THE EVENING AT 7PM. Error 11/18/2018 04/07/2023 GOLDEN, Viktor, 0.15-0.02 mgx21 /0.01 mg x 5 per tablet Take 1 tablet by mouth daily Error 11/18/2018 04/07/2023 documented as of this encounter Historical Medications * This list may reflect changes made after this encounter. montelukast (SINGULAIR) 10 mg tablet Take 1 tablet (10 mg total) by mouth daily cetirizine (ZyrTEC) 10 mg tablet Take 1 tablet (10 mg total) by mouth daily azaTHIOprine (IMURAN) 50 mg tablet Take 1 tablet (50 mg total) by mouth daily norgestimate-ethi nyl estradioL (ORTHO-CYCLEN) 0.25-35 mg-mcg per tablet Take 1 tablet by mouth daily added in this encounter Active and Recently Administered Medications Times are shown in AIRWAY TRAFFIC CONTROLLER. Scheduled Medication Order 04/05/2023 04/06/2023 04/07/2023 azaTHIOprine (IMURAN) tablet 50 mg 50 mg, oral, Daily, First dose on Mon04/08/23 at 0900 cetirizine (ZyrTEC) tablet 10 mg 10 mg, oral, Daily, First dose on Mon04/08/23 at 0900 enoxaparin (LOVENOX) syringe 40 mg (CANCELED) 40 mg, subcutaneous, Every 12 hours scheduled, First dose (after last modification) on Mon04/07/23 at 0900, Indications: Deep Vein Thrombosis Prevention 0828 (Given - Provid er: Amy Gage) montelukast (SINGULAIR) tablet 10 mg 10 mg, oral, Daily, First dose (after last modification) on Mon04/08/23 at 0900 norgestimate-ethinyl estradioL (ORTHO-CYCLEN) 0.25-35 mg-mcg per tablet 1 tablet 1 tablet, oral, Daily, First dose on Mon04/07/23 at 1300 1300 (Given - Provid er: Marissa Walls RN) sodium chloride 0.9% flush 0.5-20 mL 0.5-20 mL, intra-catheter, Every 8 hours scheduled, First dose on Mon04/07/23 at 0600, Flush volume based on line type and size. 0507 (Not Given - Pr ovider: Duarte Lanier RN - Reason: Other - Comment: sleep hygiene)1418 (Given - Provider: Amy Gage) sodium chloride 0.9% flush 0.5-20 mL(Linked Group 1) 0.5-20 mL, intra-catheter, Every 8 hours scheduled, First dose on Mon04/07/23 at 0600, Flush volume based on line type and size. 0507 (Not Given - Pr ovider: Duarte Lanier RN - Reason: Other - Comment: Sleep hygiene)1419 (Given - Provider: Amy Gage) PRN Medication Order 04/05/2023 04/06/2023 04/07/2023 acetaminophen (TYLENOL) tablet 1,000 mg 1,000 mg, oral, Every 8 hours PRN, 1st line for pain, fever, fever greater than 38.3 C, Starting on Mon04/07/23 at 0151, Indications: Fever, Pain 1459 (Given - Provid er: Marissa Walls RN) benzonatate (TESSALON) capsule 200 mg 200 mg, oral, 3 times daily PRN, cough, Starting on Mon04/07/23 at 0151, Do not crush, chew, cut, dissolve, open or otherwise manipulate tablet/capsule., Indications: Cough Carrier Fluids for Secondary Infusion - 0.9% Sodium Chloride 30 mL, intravenous, As needed, For priming tubing and/or flushing, Starting on Mon04/07/23 at 0151, 0-250 ml/hr to flush line after IV infusions when no maintenance IV ordered. Infuse 30mL at the same rate as the secondary infusion. Run as primary IV, not intended for KVO. Carrier Fluids for Secondary Infusion - 0.9% Sodium Chloride(Linked Group 1) 30 mL, intravenous, As needed, For priming tubing and/or flushing, Starting on Mon04/07/23 at 0151, 0-250 ml/hr to flush line after IV infusions when no maintenance IV ordered. Infuse 30mL at the same rate as the secondary infusion. Run as primary IV, not intended for KVO. polyethylene glycol (MIRALAX) packet 17 g 17 g, oral, Daily PRN, constipation, Starting on Mon04/07/23 at 0151, Indications: constipation prochlorperazine (COMPAZINE) injection 5 mg(Linked Group 2) 5 mg, intravenous, Administer over 2 Minutes, Every 6 hours PRN, nausea, vomiting, Use if unable to tolerate PO, Starting on Mon04/07/23 at 0151, Indications: Nausea and Vomiting prochlorperazine (COMPAZINE) tablet 5 mg(Linked Group 2) 5 mg, oral, Every 6 hours PRN, nausea, vomiting, Starting on Mon04/07/23 at 0151, Indications: Nausea and Vomiting ramelteon (ROZEREM) tablet 8 mg 8 mg, oral, Nightly PRN, sleep, Starting on Mon04/07/23 at 0151, Indications: Sleep-Onset Insomnia sodium chloride (OCEAN) 0.65 % nasal spray 2 spray 2 spray, each nostril, Every 1 hour PRN, congestion, rhinitis, Starting on Mon04/07/23 at 0151 sodium chloride 0.9% flush 0.5-20 mL 0.5-20 mL, intra-catheter, As needed, line care, Starting on Mon04/07/23 at 0151, Flush volume based on line type and size. Flush before and after each use. sodium chloride 0.9% flush 0.5-20 mL(Linked Group 1) 0.5-20 mL, intra-catheter, As needed, line care, Starting on Mon04/07/23 at 0151, Flush volume based on line type and size. Flush before and after each use. Linked Groups Order Group 1: Saline lock IV (CANCELED) Routine, Once (Routine), On Mon04/07/23 at 0152, For 1 occurrence And sodium chloride 0.9% flush 0.5-20 mLJump to med 0.5-20 mL, intra-catheter, Every 8 hours scheduled, First dose on Mon04/07/23 at 0600, Flush volume based on line type and size. And sodium chloride 0.9% flush 0.5-20 mLJump to med 0.5-20 mL, intra-catheter, As needed, line care, Starting on Mon04/07/23 at 0151, Flush volume based on line type and size. Flush before and after each use. And Carrier Fluids for Secondary Infusion - 0.9% Sodium ChlorideJump to med 30 mL, intravenous, As needed, For priming tubing and/or flushing, Starting on Mon04/07/23 at 0151, 0-250 ml/hr to flush line after IV infusions when no maintenance IV ordered. Infuse 30mL at the same rate as the secondary infusion. Run as primary IV, not intended for KVO. Group 2: prochlorperazine (COMPAZINE) tablet 5 mgJump to med 5 mg, oral, Every 6 hours PRN, nausea, vomiting, Starting on Mon04/07/23 at 0151, Indications: Nausea and Vomiting Or prochlorperazine (COMPAZINE) injection 5 mgJump to med 5 mg, intravenous, Administer over 2 Minutes, Every 6 hours PRN, nausea, vomiting, Use if unable to tolerate PO, Starting on Mon04/07/23 at 0151, Indications: Nausea and Vomiting documented in this encounter Orders Medications Ordered That Bonifacio ht Not Have Been Administered Count Last Ordered Date First Ordered Date azaTHIOprine (IMURAN) tablet 50 mg 1 2022 benzonatate (TESSALON) capsule 200 mg 1 02/2023 Carrier Fluids for Secondary Infusion - 0.9% Sodium Chloride 2 04/07/2023 cetirizine (ZyrTEC) tablet 10 mg 1 04/07/20 enoxaparin (LOVENOX) syringe 40 mg 1 2022 montelukast (SINGULAIR) tablet 10 mg 2 03/29 NON FORMULARY (FOR INPATIENT USE) 1 023 polyethylene glycol (MIRALAX) packet 17 g 1 04/07/2023 prochlorperazine (COMPAZINE) injection 5 mg 1 04/07/2023 prochlorperazine (COMPAZINE) tablet 5 mg 1 04/07/2023 ramelteon (ROZEREM) tablet 8 mg 1 sodium chloride (OCEAN) 0.65 % nasal spray 2 spray 1 04/07/2023 sodium chloride 0.9% flush 0.5-20 mL 2 03/29 Lab Orders Without Results Count Last Ordered D ate First Ordered Date BARTONELLA ANTIBODY PANEL 1 04/07/2023 BLASTOMYCES ANTIBODY, EIA, S 1 04/07/2023 HISTOPLASMA ANTIBODY 1 04/07/2023 Diet Count Last Ordered Date First Orde red Date ADULT DISCHARGE DIET 1 04/07/2023 Nursing Count Last Ordered Date First Orde red Date DISCHARGE ACTIVITY 1 04/07/2023 WEIGH PATIENT 1 04/07/2023 Consult Count Last Ordered Date First Orde red Date CONSULT TO GENERAL INFECTIOUS DISEASE 1 02/2023 IP CONSULT TO DERMATOLOGY 1 04/07/2023 Admission Count Last Ordered Date First Orde red Date ADMIT TO INPATIENT 1 04/06/2023 Discharge Count Last Ordered Date First Orde red Date DISCHARGE PATIENT 1 04/07/2023 documented in this encounter Care Teams Emery Wheel Molder Relationship Specialty Start Date End Date Wade Nickerson MD PhD [address] [facility] [address] [place] [address] PCP - General Neurology 11/26/18 04/06/23 Karson Payne MD [address] [facility] [address] [place] [address] PCP - General Family Medicine 04/07/23 documented as of this encounter
--- OUTSIDE RECORDS SUMMARY | 2024-06-08 08:11 | XMS_ITS | Encounter Summary ---
Author Organization [facility] Address [address] [place] [address] Phone Care Team Providers Care Paraoptometric Name Role Phone Karson Payne MD Primary Care Provider +1- [phone] Encounter Details Date Type Department Care Team (Late st Contact Info) Description 05/16/[address] [facility] Infectious Diseases [address] [place] [address] Jesenia Ott, [facility] Social History Tobacco Use Types Packs/Day Years [...] CDT Gender Identity Female 04/07/2023 6:04 PM LEHR CUTTER Sexual Orientation Straight 04/07/2023 6: 04 PM LEHR CUTTER documented as of this encounter Ordered Prescriptions Prescription Sig Dispense Quantity Refills Last Filled Start Date End Date fluconazole (DIFLUCAN) 150 mg tablet Take 1 tablet (150 mg total) by mouth once for 1 dose 1 tablet 1 05/26/2023 05/26/2023 documented in this encounter Miscellaneous Notes * Addendum Note - Duglas Denny MD - 05/26/2023 12:00 PM CSTAddended by: DUGLAS DENNY on: 05/26/2023 12:00 PM Modules accepted: Orders CUTTER * Telephone Encounter - Odalis Tripp - 05/16/2023 1:39 PM CST Spoke with pt, headache, top of her head, started Monday has taken ibuprofen with temporary relief, but comes back. Fever yesterday up to 101.4, body aches, but states she doesn't feel sick no sinus or congestion issues. Covid test neg. Noted more BM than normal. She did not take Rifabutin today. Please advise. CUTTER * Telephone Encounter - Jesenia Ott. - 05/16/2023 9:37 AM CST This patient says she is having an allergic reaction from taking the medication called Rifabutin. The patient says that she is having Headaches, body aches and chills. Please call the patient at [phone]. CUTTER documented in this encounter Plan of Treatment Not on file documented as of this encounter Visit Diagnoses Not on filedocumented in this encounter Care Teams Paraoptometric Relationship Specialty Start Date End Date Karson Payne MD PCP - General Family Medicine 04/07/23 documented as of this encounter
--- OUTSIDE RECORDS SUMMARY | 2024-06-08 08:11 | XMS_ITS | Encounter Summary ---
Author Organization [facility] Address [address] [place] [address] Phone Care Team Providers Care Pool Installer Name Role Phone Karson Payne MD Primary Care Provider +1- [phone] Encounter Details Date Type Department Care Team (Late st Contact Info) Description 04/24/2023 Telephone [facility] Infectious Diseases [address] [place] [address] [address] [place] [address] Priscilla Yanez Social History Tobacco Use Types Packs/Day Years [...] CDT Gender Identity Female 04/07/2023 6:04 PM BUTTON AND BUCKLE MAKER Sexual Orientation Straight 04/07/2023 6: 04 PM BUTTON AND BUCKLE MAKER documented as of this encounter Ordered Prescriptions Prescription Sig Dispense Quantity Refills Last Filled Start Date End Date ethambutoL (MYAMBUTOL) 400 mg tabletIndications: Mycobacteriosis Take 4 tablets (1,600 mg total) by mouth daily 120 tablet 05/02/2023 4 azithromycin (ZITHROMAX) 250 mg tablet Take 1 tablet (250 mg total) by mouth daily 30 tablet 05/01/2023 3 ethambutoL (MYAMBUTOL) 400 mg tabletIndications: Mycobacteriosis Take 6 tablets (2,400 mg total) by mouth daily 180 tablet 05/01/2023 3 cefadroxil (DURICEF) 500 mg capsule Take 1 capsule (500 mg total) by mouth 2 (two) times a day 10 capsule 04/24/2023 3 documented in this encounter Miscellaneous Notes * Addendum Note - Duglas Denny MD - 05/02/2023 2:19 PM CSTAddended by: DUGLAS DENNY on: 05/02/2023 02:19 PM Modules accepted: Orders ON AND BUCKLE MAKER * Addendum Note - Duglas Denny MD - 05/01/2023 2:33 PM CSTAddended by: DUGLAS DENNY on: 05/01/2023 02:33 PM Modules accepted: Orders ON AND BUCKLE MAKER * Telephone Encounter - Duglas Denny MD - 04/24/2023 12:14 PM BUTTON AND BUCKLE MAKER I spoke with Ms. Zavaleta. 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 It sounds like she is having redness and irritation at the site of her skin punch biopsies that hasnot improved with local wound care. The redness is different than that of her more chronic infection. The biopsy sites have also not yet closed up. I recommended that she continue local wound care and start cefadroxil 500 mg PO twice daily for 5 days for a possible superimposed skin and soft tissue infection. 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 I will call her with results when available and also discuss with Dr. Barahona, who is set to see her in clinic on 05/09. Duglas Denny MD Infectious Disease Fellow ON AND BUCKLE MAKER * Telephone Encounter - Priscilla YanezEva - 04/24/2023 11:59 AM CST [phone], patient is wanting to know her follow up plan. Also, she is wanting the meds she is suppose to be getting. A concoction of meds. ON AND BUCKLE MAKER documented in this encounter Plan of Treatment Not on file documented as of this encounter Visit Diagnoses Not on filedocumented in this encounter Discontinued Medications Medication Sig Discontinue Reason Start Date End Da te cefadroxil (DURICEF) 500 mg capsule Take 1 capsule (500 mg total) by mouth 2 (two) times a day Therapy completed 04/24/2023 05/01/2023 ethambutoL (MYAMBUTOL) 400 mg tabletIndications:Mycoba cteriosis Take 6 tablets (2,400 mg total) by mouth daily 05/01/2023 05/02/2023 documented as of this encounter Care Teams Pool Installer Relationship Specialty Start Date End Date Karson Payne MD PCP - General Family Medicine 04/07/23 documented as of this encounter
--- OUTSIDE RECORDS SUMMARY | 2024-06-08 08:11 | XMS_ITS | Encounter Summary ---
Author Organization [facility] Address [address] [place] [address] Phone Care Team Providers Care Professor Of Forestry Name Role Phone Karson Payne MD Primary Care Provider +1- [phone] Encounter Details Date Type Department Care Team (Late st Contact Info) Description 05/31/2023 Telephone [facility] Infectious Diseases [address] [place] [address] [address] [place] [address] Mary Juarez LCSW Social History Tobacco Use Types Packs/Day Years [...] CDT Gender Identity Female 04/07/2023 6:04 PM WHISKEY PROOF READER Sexual Orientation Straight 04/07/2023 6: 04 PM WHISKEY PROOF READER documented as of this encounter Miscellaneous Notes * Telephone Encounter - Odalis Tripp - 06/01/2023 8:36 AM CST Responded to EadBox message. Preferred pharmacy is [facility] KEY PROOF READER * Telephone Encounter - Mary Juarez LCSW - 05/31/2023 3:45 PM WHISKEY PROOF READER Patient has new insurance, and needs to do mail orders now due to her insurance. Call [facility] at [phone], [facility], 90 day supply preferred. Myambutol and Zithromax KEY PROOF READER documented in this encounter Plan of Treatment Not on file documented as of this encounter Visit Diagnoses Not on filedocumented in this encounter Care Teams Professor Of Forestry Relationship Specialty Start Date End Date Karson Payne MD PCP - General Family Medicine 04/07/23 documented as of this encounter
--- OUTSIDE RECORDS SUMMARY | 2024-06-08 08:11 | XMS_ITS | Encounter Summary ---
Author Organization [facility] Address [address] [place] [address] Phone Care Team Providers Care Land Management Supervisor Name Role Phone Karson Payne MD Primary Care Provider +1- [phone] Encounter Details Date Type Department Care Team (Late st Contact Info) Description 12/25/2023 Orders Only [facility] Infectious Diseases [address] [place] [address] [address] [place] [address] Amanda Barahona MD [address] [place] [address] Cutaneous Mycobacterium marinum infection (Primary Dx); Encounter [...] CDT Gender Identity Female 04/07/2023 6:04 PM FRANCHISE SALES DIRECTOR Sexual Orientation Straight 04/07/2023 6: 04 PM FRANCHISE SALES DIRECTOR documented as of this encounter Plan of Treatment Not on file documented as of this encounter Procedures Procedure Name Priority Date/Time Associated Diagnosis Comments BASIC METABOLIC PANEL Routine 12/28/2023 12:37 PM CDT 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 documented in this encounter Results * (ABNORMAL) Basic metabolic panel (12/28/2023 12:37 PM CDT) Glucose 96 70 - 99 mg/dL [facility] - 01 BUN 8 6 - 20 mg/dL [facility] - 01 Creatinine, Serum 0.72 0.57 - 1.00 mg/dL [facility] - 01 eGFR 118 >59 mL/min/1.73 [facility] - 01 BUN/creat ratio 11 9 - 23 [facility] - 01 Sodium 139 134 - 144 mmol/L [facility] - 01 Potassium, sr 4.0 3.5 - 5.2 mmol/L [facility] - 01 Chloride 105 96 - 106 mmol/L [facility] - 01 CO2 19(L) 20 - 29 mmol/L [facility] - 01 Calcium 9.4 8.7 - 10.2 mg/dL [facility] - 01 Blood 12/28/2023 12:3 7 PM CDT 12/28/2023 Narrative [facility] - 12/29/2023 8:20 AM CDT Performed at: ??01 - [facility] [address] ??[id number] Lending Activities Supervisor: Chandu Cruz PhD, Phone: ??[phone] Amanda Barahona MD LAB BLOOD ORDERABLES nal Result [facility] - 01 documented in this encounter Visit Diagnoses Diagnosis 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
--- OUTSIDE RECORDS SUMMARY | 2024-06-08 08:11 | XMS_ITS | Encounter Summary ---
Author Organization [facility] Address [address] [place] [address] Phone Care Team Providers Care Diet Assistant Name Role Phone Karson Payne MD Primary Care Provider +1- [phone] Encounter Details Date Type Department Care Team (Late st Contact Info) Description 08/18/2023 Telephone [facility] Infectious Diseases [address] [place] [address] [address] [place] [address] Jesenia Ott CMA Social History Tobacco Use Types Packs/Day Years [...] CDT Gender Identity Female 04/07/2023 6:04 PM MOTOR POOL DRIVER Sexual Orientation Straight 04/07/2023 6: 04 PM MOTOR POOL DRIVER documented as of this encounter Miscellaneous Notes * Telephone Encounter - Odalis Tripp - 08/21/2023 1:49 PM CDT Return call, discussed Dr Barahona unable to complete form. * Telephone Encounter - Jesenia Ott CMA - 08/18/2023 10:54 AM CDT This patient's primary doctor's office is currently closed. Will Dr. Barahona fill out the medical release forms for DMV for this patient? For questions, please call the patient at [phone]. documented in this encounter Plan of Treatment Not on file documented as of this encounter Visit Diagnoses Not on filedocumented in this encounter Care Teams Diet Assistant Relationship Specialty Start Date End Date Karson Payne MD PCP - General Family Medicine 04/07/23 documented as of this encounter
--- OUTSIDE RECORDS SUMMARY | 2024-06-08 08:11 | XMS_ITS | Encounter Summary ---
Author Organization [facility] Address [address] [place] [address] Care Team Providers Care Equipment Validation Engineer Name Role Phone Karson Payne MD Primary Care Provider +1- [phone] Encounter Details Date Type Department Care Team (Late st Contact Info) Description 05/01/2023 Orders Only Infectious Diseases Duglas Solis MD [address] [address] Social History Tobacco Use Types Packs/Day Years [...] CDT Gender Identity Female 04/07/2023 6:04 PM STAFF NUCLEAR WEAPONS OFFICER Sexual Orientation Straight 04/07/2023 6: 04 PM STAFF NUCLEAR WEAPONS OFFICER documented as of this encounter Plan of Treatment Not on file documented as of this encounter Visit Diagnoses Not on filedocumented in this encounter Care Teams Equipment Validation Engineer Relationship Specialty Start Date End Date Karson Payne MD PCP - General Family Medicine 04/07/23 documented as of this encounter
--- OUTSIDE RECORDS SUMMARY | 2024-06-08 08:11 | XMS_ITS | Encounter Summary ---
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 Procedures ECG 12 lead Amanda Barahona MD [address] [place] [address] Phone: tel: fax: [facility] (All Locations) Referral ID Status Reason Start Date Expiration Date V isits Requested Visits Authorized [id number] Authorized 12/13/2023 01/11/2025 1 1 Encounter Details Date Type Department Care Team (Latest Contact Info) Description 12/12/2023 3:20 PM CDT Office Visit [facility] Infectious Diseases [address] [place] [address] [address] [place] [id number] Amanda Barahona MD [address] [place] [address] Cutaneous Mycobacterium marinum infection (Primary Dx); Encounter [...] CDT Gender Identity Female 04/07/2023 6:04 PM DEMO COORDINATOR Sexual Orientation Straight 04/07/2023 6: 04 PM DEMO COORDINATOR documented as of this encounter Last Filed Vital Signs Vital Sign Reading Time Taken Comments Blood Pressure 124/84 12/12/2023 3:24 PM CDT Pulse 92 12/12/2023 3:24 PM CDT Temperature - - Respiratory Rate 18 12/12/2023 3:24 PM CDT Oxygen Saturation 99% 12/12/2023 3:24 PM CDT Inhaled Oxygen Concentration - - Weight 150.2 kg (331 lb 1.6 oz) 12/12/2023 3:24 PM CDT Height - - Body Mass Index 46.35 09/12/2023 3:14 PM CDT documented in this encounter Ordered Prescriptions Prescription Sig Dispense Quantity Refills Last Filled Start Date End Date azithromycin (ZITHROMAX) 500 mg tabletIndications:M ycobacteriosis Take 1 tablet (500 mg total) by mouth daily 30 tablet 12/12/2023 4 ethambutoL (MYAMBUTOL) 400 mg tabletIndications:C utaneous Mycobacterium marinum infection Take 4 tablets (1,600 mg total) by mouth daily 120 tablet 12/12/2023 4 documented in this encounter Progress Notes * Amanda Barahona MD - 12/12/2023 3:20 PM CDT Infectious Disease Outpatient Follow Up Note Subjective Chief Complaint: wound infection 2/2 M marinum HPI: The patient is a 28 y.o. female with history of childhood seizures and ulcerative colitis (on AZA, infliximab) who presents with 4 month history of nonhealing lacerations on her bilateral lower feet/ankles with recent spread up her right le. This started after falling on rocks/coral in [place]. Lesions have progressed into raised, scaly lesions [...] rash, no vision changes - rash improving 09/12/23: - notes slowed improvement in lesions/nodules - otherwise doing well on ethambutol and azithro - tolerating with f/c/n/v/d, rash, no vision changes - GI doctor - Omar [facility] office at [facility] - jan Live 12/12/23: - continued improvement in lesions/nodules - less purple and nodular - otherwise doing well on ethambutol and azithro - tolerating with f/c/n/v/d, rash, no vision changes Objective Vitals: Most Recent : BP 124/84 Pulse 92 Resp 18 Wt (!) 150.2 kg (331 lb 1.6 oz) SpO2 99% BMI 46.35 kg/m?? Physical Exam: Physical Exam Constitutional: Appearance: Normal appearance. HENT: Head: Normocephalic. Right Ear: External ear normal. Left Ear: External ear normal. Nose: Nose normal. Eyes: Extraocular Movements: Extraocular movements intact. Conjunctiva/sclera: Conjunctivae normal. Cardiovascular: Rate and Rhythm: Normal rate. Pulmonary: Effort: Pulmonary effort is normal. No respiratory distress. Abdominal: General: There is no distension. Skin: Comments: Lesions now flat. A few remaining nodular areas but they are small. Far less violaceous. No edema or warmth. Neurological: General: No focal deficit present. Mental Status: She is alert. Lab/Radiology/Diagnostic Review: I reviewed the following laboratory and imaging result(s). Micro: Lab Results Component Value Date MICROBIOLOGY (.) 04/07/2023 Final Report: Growth in broth only Mycobacterium marinum Susceptibility performed by the [facility] [place], [address] [place] [address], [place], [place] [address] * * * * * * * * * * * * * * * * * * * * For Mycobacterium marinum susceptibility results, see attached scanned report. * * * * * * * * * * * * * * * * * * * * MICROBIOLOGY Final Report: Rare Mixed skin microorganisms. 04/07/2023 MICROBIOLOGY Final Report: No growth of fungus 04/07/2023 MICROBIOLOGY (.) 04/07/2023 Final Report: Mycobacterium marinum For additional result information, see attached scanned report. Notification of: Mycobacterium marinum called to and read back by: Duglas Solis [phone] on 04/27/2023 13:24:38 by: Trent Cabrera MLS Urinalysis:No results for input(s): COLORU , CLARITYU , SPECGRAVU , PHURINE , PROTURQL , GLUCOSEUR , KETONESU , BILIRUBINU , BLOODUR , UROBILINOGUR , NITRITEU , LEUKESTUR , WBCUR in thelast 8736 hours. Hematology/Chemistry: CBC: Lab Results Component Value Date WBC 7.3 09/12/2023 HGB 13.6 09/12/2023 HCT 40.6 09/12/2023 LABPLAT 306 09/12/2023 NEUTOPHILPCT 44.1 09/12/2023 LYMPHOPCT 38.7 09/12/2023 MONOPCT 14.0 09/12/2023 EOSPCT 2.1 09/12/2023 CMP: Lab Results Component Value Date SODIUM 141 09/12/2023 POTASSIUM 3.7 09/12/2023 CHLORIDE 105 09/12/2023 CO2 25 09/12/2023 ANIONGAP 11 09/12/2023 GLUCOSE 71 09/12/2023 BUNSER 12 09/12/2023 CREATININE 0.73 09/12/2023 CALCIUM 9.5 09/12/2023 ALBUMIN 4.2 09/12/2023 ALKPHOS 61 09/12/2023 ALT 15 09/12/2023 AST 37 09/12/2023 BILITOT 0.2 09/12/2023 Creatinine:Estimated Creatinine Clearance: 130 mL/min (by Cockcroft-Gault based on SCr of 0.73 mg/dL). Resulted in the Past 12 Months 09/12/23 1603 06/13/23 1625 04/06/23 2230 CREATININE 0.73 0.75 0.73 Inflammatory Markers: Resulted in the Past 12 Months 04/06/23 2230 SEDRATE 17 CRP 17.0* Screening Results RPR:No results found for: LABRPR GC: No results found for: CTRACHOMATIS , NGONORRHOEAE Hepatitis Serologies: No results found for: HEPAIGG , HEPAIGM , HEPBSAG , HEPBSAB , HEPBCAB , HEPCAB Virologic Testing: HIV Screen:No results found for: [id number] CD4:No results found for: CD4ABS , CD4PCT Common Virologic Results: No results found for: BDX4XYZ , CD4ABS , CD4PCT , NUCLEOSRT , NONNUCRTMUT , PROTEASEMUT , INTEGRASEMUT , PPD , TOXOIGG Diagnostics: EKG:No results found for: VR , AR , PRIMSEC , QRSIMSEC , QTIMSEC , QT , PA , RA , TA , DIAG Echo: Imaging: No results found. No results found. Assessment/Plan Patient is a 28yo female with PMHx including UC on azathioprine and infliximab who presented with 4months of bilateral ankle non-healing nodular lesions after [place] found to have M marinum infection. Initially identified by PCR though AFB ultimately did grow M marinumas well (S clarithro). Started on azithromycin 250 and ethambutol on 05/02 when PCR came back identifying M marinum. Azithromycin increased to 500mg daily on 05/09. Did not tolerate addition of rifabutin d/t development of fevers, headaches and myalgias the resolved after stopping. 12/11 - tolerating azithromycin and ethambutol with no s/sx of ADEs. Has been on tx for about 7 months (but also on aza and infliximab). Lesions look largely resolved and remaining small nodules and skin discoloration likely residual and healing, and not reflective of active infection. Will do 1 more month of medication per recommendations and see back in 3 months (so 2 months off azithro/ethambutol) to see how lesions are doing. Will check safety EKG and labs today. EKG in office with QTc <500. 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 Abdi Barahona MD Infectious Diseases Addiction Medicine My total encounter time on 12/12/2023 was 41 minutes which was spent in the activities [...] time spent in any separately reportable services. 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 73 m2 Comment: Interpretive Data Reference Interval Normal ?>/= [...] interpretive data was last reviewed 2021. Blood 12/12/2023 4:13 PM CDT 12/12/2023 7:06 PM CDT us Amanda Barahona MD LAB BLOOD ORDERABLES Fi nal Result [facility] [place] [address] * (ABNORMAL) Differential, auto (12/12/2023 4:13 PM CDT) Neutrophil abs 4.5 1.5 - 6.5 K/cumm Imm gran abs 0.0 0.0 - 0.1 K/cumm [facility] Lymphocyte abs 2.2 0.8 - 3.3 K/cumm [facility] Monocyte abs 1.1(H) 0.2 - 0.8 K/cumm [facility] Eosinophil abs 0.1 0.0 - 0.5 K/cumm [facility] Basophil abs 0.1 0.0 - 0.1 K/cumm [facility] Neutrophil pct 56.0 % [facility] Comment: Interpretive Data Percent cell count reference ranges are not reported, since discordance with absolute values may lead to misinterpretation of CBC data. Current Interpretive Data was last revised on 2017. Imm gran pct 0.4 % [facility] Comment: Interpretive Data Percent cell count reference ranges are not reported, since discordance with absolute values may lead to misinterpretation of CBC data. Current Interpretive Data was last revised on 2017. Lymphocyte pct 27.8 % [facility] Comment: Interpretive Data Percent cell count reference ranges are not reported, since discordance with absolute values may lead to misinterpretation of CBC data. Current Interpretive Data was last revised on 2017. Monocyte pct 13.4 % [facility] Comment: Interpretive Data Percent cell count reference ranges are not reported, since discordance with absolute values may lead to misinterpretation of CBC data. Current Interpretive Data was last revised on 2017. Eosinophil pct 1.7 % [facility] Comment: Interpretive Data Percent cell count reference ranges are not reported, since discordance with absolute values may lead to misinterpretation of CBC data. Current Interpretive Data was last revised on 2017. Basophil pct 0.7 % [facility] Comment: Interpretive Data Percent cell count reference ranges are not reported, since discordance with absolute values may lead to misinterpretation of CBC data. Current Interpretive Data was last revised on 2017. Blood 12/12/2023 4:13 PM CDT 12/12/2023 7:03 PM CDT Amanda Barahona MD LAB BLOOD ORDERABLES nal Result [facility] [place] [address] * Comprehensive metabolic panel (12/12/2023 4:13 PM CDT) Sodium 138 135 - 145 mmol/L Potassium, pl 3.3 3.3 - 4.9 mmol/L [facility] Chloride 101 97 - 110 mmol/L [facility] CO2 25 22 - 32 mmol/L [facility] Anion gap 12 2 - 15 mmol/L [facility] BUN 14 6 - 25 mg/dL [facility] Creatinine 1.08 0.60 - 1.10 mg/dL [facility] Glucose 72 70 - 199 mg/dL [facility] Comment: Interpretive Data Fasting glucose [...] interpretive data was last revised 2022. Calcium 9.4 8.5 - 10.3 mg/dL [facility] Bilirubin, total 0.5 0.1 - 1.2 mg/dL [facility] Protein, pl 7.7 6.5 - 8.5 g/dL [facility] Albumin 4.3 3.5 - 5.0 g/dL [facility] Alk phos 64 40 - 130 Units/L [facility] ALT 10 7 - 45 Units/L [facility] AST 22 10 - 45 Units/L [facility] Blood 12/12/2023 4:13 PM CDT 12/12/2023 7:03 PM CDT Amanda Barahona MD LAB BLOOD ORDERABLES [facility] Result [facility] [place] [address] * CBC with auto differential (12/12/2023 4:13 PM CDT) WBC 8.1 3.8 - 9.9 K/cumm Hgb 13.8 11.9 - 15.5 g/dL [facility] Hct 41.7 35.6 - 45.5 % [facility] Plt 317 150 - 400 K/cumm [facility] MPV 10.4 9.1 - 12.3 fL [facility] RBC 4.65 3.90 - 5.20 M/cumm [facility] MCV 89.7 81.3 - 96.4 fL [facility] MCH 29.7 27.1 - 33.3 pg [facility] MCHC 33.1 32.3 - 35.7 g/dL [facility] RDW CV 13.0 11.1 - 14.9 % [facility] RDW SD 42.7 35.7 - 48.1 fL [facility] NRBC abs 0.00 0.00 - 0.01 K/cumm [facility] Blood 12/12/2023 4:13 PM CDT 12/12/2023 7:03 PM CDT Amanda Barahona MD LAB BLOOD ORDERABLES Fi nal Result [facility] [place] [address] documented in this encounter Visit Diagnoses Diagnosis Cutaneous Mycobacterium marinum infection- Primary Encounter for long-term (current) use of antibiotics documented in this encounter Discontinued Medications Medication Sig Discontinue Reason Start Date End Da te azithromycin (ZITHROMAX) 500 mg tabletIndications:Mycobac teriosis Take 1 tablet (500 mg total) by mouth daily Reorder 09/22/2023 12/12/2023 ethambutoL (MYAMBUTOL) 400 mg tabletIndications:Cutaneo us Mycobacterium marinum infection TAKE FOUR (4) TABLETS (1,600 MG TOTAL) BY MOUTH DAILY Reorder 09/22/2023 12/12/2023 documented as of this encounter Orders EKG Orders Without Results Count Last Ordered D ate First Ordered Date ECG 12-LEAD 1 12/12/2023 documented in this encounter Care Teams Desk Maker Relationship Specialty Start Date End Date Karson Payne MD PCP - General Family Medicine 04/07/23 documented as of this encounter
--- OUTSIDE RECORDS SUMMARY | 2024-06-08 08:11 | XMS_ITS | Encounter Summary ---
Author Organization [facility] Care Team Providers Care Front End Developer Javascript Html Css Name Role Phone Wade Nickerson MD PhD Primary Care Provider Encounter Details Date Type Department Care Team (Latest Contact Info) Description 11/26/2018 Travel Social History Tobacco Use Types Packs/Day Years Used Date Smoking Tobacco: Never Smokeless Tobacco: Never Alcohol Use Standard Drinks/Week Comments Yes 0 (1 standard drink = 0.6 oz pur e alcohol) Comments Unknown Sex and Gender Information Value Date Recorded Sex Assigned at Not on file Legal Sex Female 11:25 AM CDT Gender Identity Female 04/07/2023 6:04 PM EBD TEACHER Sexual Orientation Straight 04/07/2023 6: 04 PM EBD TEACHER documented as of this encounter Plan of Treatment Not on file documented as of this encounter Visit Diagnoses Not on filedocumented in this encounter Care Teams Front End Developer Javascript Html Css Relationship Specialty Start Date End Date Wade Nickerson MD PhD [address] [facility] [address] [place] [address] PCP - General Neurology 11/26/18 04/06/23 documented as of this encounter
--- OUTSIDE RECORDS SUMMARY | 2024-06-08 08:11 | XMS_ITS | Encounter Summary ---
Author Organization [facility] Address [address] [place] [address] Phone Care Team Providers Care Studio Director Name Role Phone Karson Payne MD Primary Care Provider +1- [phone] Encounter Details Date Type Department Care Team (Late st Contact Info) Description 06/01/2023 Orders Only [facility] Infectious Diseases [address] [place] [address] [address] [place] [address] Amanda Barahona MD [address] [place] [address] Social History Tobacco Use Types Packs/Day Years [...] CDT Gender Identity Female 04/07/2023 6:04 PM MUSIC ARTIST Sexual Orientation Straight 04/07/2023 6: 04 PM MUSIC ARTIST documented as of this encounter Ordered Prescriptions Prescription Sig Dispense Quantity Refills Last Filled Start Date End Date ethambutoL (MYAMBUTOL) 400 mg tabletIndications: Mycobacteriosis Take 4 tablets (1,600 mg total) by mouth daily 120 tablet 3 06/01/2023 4 azithromycin (ZITHROMAX) 500 mg tablet Take 1 tablet (500 mg total) by mouth daily 30 tablet 3 06/01/2023 4 documented in this encounter Plan of Treatment Not on file documented as of this encounter Visit Diagnoses Not on filedocumented in this encounter Discontinued Medications Medication Sig Discontinue Reason Start Date End Da te azithromycin (ZITHROMAX) 500 mg tabletIndications:Mycoba cteriosis Take 1 tablet (500 mg total) by mouth daily 05/09/2023 06/01/2023 ethambutoL (MYAMBUTOL) 400 mg tablet TAKE 4 TABLETS BY MOUTH ONCE DAILY Other 05/31/2023 06/01/2023 documented as of this encounter Care Teams Studio Director Relationship Specialty Start Date End Date Karson Payne MD PCP - General Family Medicine 04/07/23 documented as of this encounter
--- OUTSIDE RECORDS SUMMARY | 2024-06-08 08:11 | XMS_ITS | Encounter Summary ---
Author Organization [facility] Address [address] [place] [address] Care Team Providers Care Vegetable Handler Name Role Phone Karson Payne MD Primary Care Provider +1- [phone] Encounter Details Date Type Department Care Team (Latest Contact Info) Description 06/13/2023 6:10 PM COIN DEALER - 06/13/2023 11:59 PM COIN [place] [address] Discharge Disposition: Discharge to home or self [...] CDT Gender Identity Female 04/07/2023 6:04 PM COIN DEALER Sexual Orientation Straight 04/07/2023 6: 04 PM COIN DEALER documented as of this encounter Medications at Time of Discharge azaTHIOprine (IMURAN) 50 mg tablet Take 1 tablet (50 mg total) by mouth daily cetirizine (ZyrTEC) 10 mg tablet Take 1 tablet (10 mg total) by mouth daily montelukast (SINGULAIR) 10 mg tablet Take 1 tablet (10 mg total) by mouth daily norgestimate-ethiny l estradioL (ORTHO-CYCLEN) 0.25-35 mg-mcg per tablet Take 1 tablet by mouth daily rifabutin (MYCOBUTIN) 150 mg capsuleIndications: Cutaneous Mycobacterium marinum infection Take 2 capsules (300 mg total) by mouth daily 60 capsule 1 05/09/2023 4 azithromycin (ZITHROMAX) 500 mg tablet Take 1 tablet (500 mg total) by mouth daily 30 tablet 3 06/01/2023 4 ethambutoL (MYAMBUTOL) 400 mg tabletIndications:M ycobacteriosis Take 4 tablets (1,600 mg total) by mouth daily 120 tablet 3 06/01/2023 4 documented as of this encounter Discharge Disposition Disposition Code Departure Means Destination Discharge to home or self care documented in this encounter Plan of Treatment Not on file documented as of this encounter Visit Diagnoses Not on filedocumented in this encounter Care Teams Vegetable Handler Relationship Specialty Start Date End Date Karson Payne MD PCP - General Family Medicine 04/07/23 documented as of this encounter
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
--- OUTSIDE RECORDS SUMMARY | 2024-06-08 08:11 | XMS_ITS | Encounter Summary ---
Author Organization [facility] Address [address] [place] [address] Care Team Providers Care Baker Bread Name Role Phone Karson Payne MD Primary Care Provider +1- [phone] Encounter Details Date Type Department Care Team (Late st Contact Info) Description 05/26/2023 Telephone Infectious Diseases Duglas Solis MD [address] [address] Social History Tobacco Use Types Packs/Day Years [...] CDT Gender Identity Female 04/07/2023 6:04 PM DIRECTOR OF COMPLIANCE Sexual Orientation Straight 04/07/2023 6: 04 PM DIRECTOR OF COMPLIANCE documented as of this encounter Miscellaneous Notes * Telephone Encounter - Duglas Solis MD - 05/26/2023 11:43 AM DIRECTOR OF COMPLIANCE Received a call from Ms. Zavaleta as the ID clinic is closed for the holiday. She has developed vaginal discharge that she describes as white and thick with associated irritation. These symptoms are similar to that when she has had yeast infections in the past. 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 She prefers a pill as compared to vaginal therapy. A single dose of fluconazole 150 mg should be effective and safe. Note that she is on azithromycin, which also prolongs the QTc. Confirmed that she is not taking rifabutin, as that would have a mild interaction with fluconazole. As she is on immunosuppression, I sent a refill for another pill that she could take if symptoms are not improving after 72 hours. -- Duglas Solis MD Infectious Disease Fellow CTOR OF COMPLIANCE documented in this encounter Plan of Treatment Not on file documented as of this encounter Visit Diagnoses Not on filedocumented in this encounter Care Teams Baker Bread Relationship Specialty Start Date End Date Karson Payne MD PCP - General Family Medicine 04/07/23 documented as of this encounter
--- OUTSIDE RECORDS SUMMARY | 2024-06-08 08:11 | XMS_ITS | Referral Summary ---
Author Organization [facility] Address [address] [place] [address] Care Team Providers Care Business Continuity Consultant Name Role Phone Karson Payne MD Primary Care Provider +1- [phone] Encounters Date Type Department Care Team Description 03/19/2024 3:20 PM CDT Office Visit [facility] Infectious Diseases [address] [place] [address] Amanda Barahona MD Cutaneous Mycobacterium marinum infection (Primary Dx); Immunocompromised state (HCC) from Last 3 Months Allergies No known active allergies Medications norgestimate-eth [...] Wound infection 04/06/2023 Seizure disorder (CMS/HCC) 11/26/2018 Social History Tobacco Use Types Packs/Day [...] CDT Gender Identity Female 04/07/2023 6:04 PM 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
--- OUTSIDE RECORDS SUMMARY | 2024-06-08 08:11 | XMS_ITS | Encounter Summary ---
Author Organization [facility] Address [address] [place] [address] Phone Care Team Providers Care Senior Environmental Practice Leader Name Role Phone Karson Payne MD Primary Care Provider +1- [phone] Reason for Visit * Reason Comments Follow-up Encounter Details Date Type Department Care Team (Latest Contact Info) Description 09/12/2023 3:20 PM CDT Office Visit [facility] Infectious Diseases [address] [place] [address] [address] [place] [id number] Amanda Barahona MD [address] [place], [place] [id number] Cutaneous Mycobacterium marinum infection (Primary Dx); Encounter [...] CDT Gender Identity Female 04/07/2023 6:04 PM PACKAGE WINDER Sexual Orientation Straight 04/07/2023 6: 04 PM PACKAGE WINDER documented as of this encounter Last Filed Vital Signs Vital Sign Reading Time Taken Comments Blood Pressure 148/103 09/12/2023 3:14 PM CDT Pulse 105 09/12/2023 3:14 PM CDT Temperature 36.8 ??C (98.3 ??F) 09/12/2023 3:14 PM CD T Respiratory Rate - - Oxygen Saturation - - Inhaled Oxygen Concentration - - Weight 150.1 kg (331 lb) 09/12/2023 3:14 PM CDT Height 180 cm (5' 10.87 ) 09/12/2023 3:14 PM CDT Body Mass Index 46.34 09/12/2023 3:14 PM CDT documented in this encounter Ordered Prescriptions Prescription Sig Dispense Quantity Refills Last Filled Start Date End Date ethambutoL (MYAMBUTOL) 400 mg tabletIndications: Mycobacteriosis Take 4 tablets (1,600 mg total) by mouth daily 360 tablet 1 09/12/2023 azithromycin (ZITHROMAX) 500 mg tabletIndications: Mycobacteriosis Take 1 tablet (500 mg total) by mouth daily 90 tablet 1 09/12/2023 4 documented in this encounter Progress Notes * Amanda Barahona MD - 09/12/2023 3:20 PM CDT Infectious Disease Outpatient Follow [...] This started after falling on rocks/coral in [place]. Lesions have progressed into raised, scaly lesions [...] GI doctor - Omar Johns office at [facility] - sees Maria T Objective Vitals: Most Recent : BP (!) 148/103 (BP Location: Left arm, Patient Position: Sitting) Pulse 105 Temp 36.8 ??C (98.3??F) (Oral) Ht 180 cm (5' 10.87 ) Wt (!) 150.1 kg (331 lb) BMI 46.34 kg/m?? Physical Exam: Physical Exam Constitutional: Appearance: [...] Improving bilateral violaceous nodular lesions around ankles - overall rash has flattenedwith a couple remaining nodules (see pics in media tab), no edema Neurological: General: No focal deficit present. Mental Status: She is alert. Lab/Radiology/Diagnostic Review: I reviewed the following laboratory and imaging result(s). Micro: Lab Results Component Value Date MICROBIOLOGY (.) 04/07/2023 Final Report: Growth in broth only Mycobacterium marinum Susceptibility performed by the [facility] [place], [address] [place], [place] [address] [address], [place], [place] [address] * * * * * * * [...] to and read back by: Duglas Solis [phone] on 04/27/2023 13:24:38 by: Trent Cabrera MLS [...] Virologic Testing: HIV Screen:No results found for: [id number] CD4:No results found for: CD4ABS , CD4PCT Common Virologic Results: No results found for: AVQ9KAE , CD4ABS , CD4PCT , NUCLEOSRT , [...] [place] found to have M marinum infection. Initially [...] headaches and myalgias the resolved after stopping. 09/11 - tolerating azithromycin and ethambutol with no s/sx of ADEs. Able to discern color red vs green. While improvement has slowed, significantly improved vs prior to start of treatment. Only a couple nodular lesions left with mostly just skin discoloration remaining, which is not necessarily indicative of ongoing infection and can take a long time to resolve. Will continue azithromycin and ethambutol for another 3 months given some nodules remain and will re-evaluate at that time. Will get safety labs today. I did discuss with our NTM expert Dr. Malin who recommended continuing to treat for an additional 3 months (so 9 months) with re-evaluation. Given on infliximab and aza, may take longer to improve. Had discussed during appt possibility of thinking of changing IS to aid in healing however based on discussion with Dr. Malin, will hold off on this for now. 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 Abdi Barahona MD Infectious Diseases Addiction Medicine My total encounter time on 09/12/2023 was 32 minutes which was spent in the activities [...] Priority Date/Time Associated Diagnosis Comments EGFR Routine 09/12/2023 4:03 PM CDT Cutaneous Mycobacterium marinum infection DIFFERENTIAL AUTO Routine 09/12/2023 4:0 3 PM CDT Cutaneous Mycobacterium marinum infection CBC WITH AUTO DIFFERENTIAL Routine 09/12/2023 4:03 PM CDT Cutaneous Mycobacterium marinum infection COMPREHENSIVE METABOLIC PANEL Routine 09/12/2023 4:03 PM CDT Cutaneous Mycobacterium marinum infection documented in this encounter Results * eGFR (09/12/2023 4:03 PM CDT) eGFR >90 >=60 mL/min/1. 73 m2 Comment: Interpretive Data [...] interpretive data was last reviewed 2021. Blood 09/12/2023 4:03 PM CDT 09/12/2023 7:31 PM CDT Amanda Barahona MD LAB BLOOD ORDERABLES Fi nal Result [facility] Department [place] [address] * (ABNORMAL) Differential, auto (09/12/2023 4:03 PM CDT) Neutrophil abs 3.2 1.5 - 6.5 K/cumm Imm gran abs 0.0 0.0 - 0.1 K/cumm [facility] Lymphocyte abs 2.8 0.8 - 3.3 K/cumm [facility] Monocyte abs 1.0(H) 0.2 - 0.8 K/cumm [facility] Eosinophil abs 0.2 0.0 - 0.5 K/cumm [facility] Basophil abs 0.1 0.0 - 0.1 K/cumm [facility] Neutrophil pct 44.1 % [facility] Comment: Interpretive Data Percent cell count reference ranges are not reported, since discordance with absolute values may lead to misinterpretation of CBC data. Current Interpretive Data was last revised on 2017. Imm gran pct 0.3 % [facility] Comment: Interpretive Data Percent cell count reference ranges are not reported, since discordance with absolute values may lead to misinterpretation of CBC data. Current Interpretive Data was last revised on 2017. Lymphocyte pct 38.7 % [facility] Comment: Interpretive Data Percent cell count reference ranges are not reported, since discordance with absolute values may lead to misinterpretation of CBC data. Current Interpretive Data was last revised on 2017. Monocyte pct 14.0 % [facility] Comment: Interpretive Data Percent cell count reference ranges are not reported, since discordance with absolute values may lead to misinterpretation of CBC data. Current Interpretive Data was last revised on 2017. Eosinophil pct 2.1 % [facility] Comment: Interpretive Data Percent cell count reference ranges are not reported, since discordance with absolute values may lead to misinterpretation of CBC data. Current Interpretive Data was last revised on 2017. Basophil pct 0.8 % [facility] Comment: Interpretive Data Percent cell count reference ranges are not reported, since discordance with absolute values may lead to misinterpretation of CBC data. Current Interpretive Data was last revised on 2017. Blood 09/12/2023 4:03 PM CDT 09/12/2023 7:24 PM CDT Amanda Barahona MD LAB BLOOD ORDERABLES Fi nal Result [facility] Department [place] [address] * Comprehensive metabolic panel (09/12/2023 4:03 PM CDT) Sodium 141 135 - 145 mmol/L Potassium, pl 3.7 3.3 - 4.9 mmol/L [facility] Chloride 105 97 - 110 mmol/L [facility] CO2 25 22 - 32 mmol/L [facility] Anion gap 11 2 - 15 mmol/L [facility] BUN 12 6 - 25 mg/dL [facility] Creatinine 0.73 0.60 - 1.10 mg/dL [facility] Glucose 71 70 - 199 mg/dL [facility] Comment: Interpretive Data Fasting glucose >/= [...] interpretive data was last revised 2022. Calcium 9.5 8.5 - 10.3 mg/dL [facility] Bilirubin, total 0.2 0.1 - 1.2 mg/dL [facility] Protein, pl 7.3 6.5 - 8.5 g/dL [facility] Albumin 4.2 3.5 - 5.0 g/dL [facility] Alk phos 61 40 - 130 Units/L [facility] ALT 15 7 - 45 Units/L [facility] AST 37 10 - 45 Units/L [facility] Blood 09/12/2023 4:03 PM CDT 09/12/2023 7:24 PM CDT Amanda Barahona MD LAB BLOOD ORDERABLES Fi nal Result Performing Organization Address [facility] de Phone Number [facility] [place] [address] * CBC with auto differential (09/12/2023 4:03 PM CDT) WBC 7.3 3.8 - 9.9 K/cumm Hgb 13.6 11.9 - 15.5 g/dL [facility] Hct 40.6 35.6 - 45.5 % [facility] Plt 306 150 - 400 K/cumm [facility] MPV 10.4 9.1 - 12.3 fL [facility] RBC 4.53 3.90 - 5.20 M/cumm [facility] MCV 89.6 81.3 - 96.4 fL [facility] MCH 30.0 27.1 - 33.3 pg [facility] MCHC 33.5 32.3 - 35.7 g/dL [facility] RDW CV 13.4 11.1 - 14.9 % [facility] RDW SD 44.3 35.7 - 48.1 fL [facility] NRBC abs 0.00 0.00 - 0.01 K/cumm [facility] Blood 09/12/2023 4:03 PM CDT 09/12/2023 7:24 PM CDT Amanda Barahona MD LAB BLOOD ORDERABLES Fi nal Result Performing Organization Address [facility] Co de Phone Number [facility] [place] [address] documented in this encounter Visit Diagnoses Diagnosis Cutaneous Mycobacterium marinum infection- Primary Encounter for long-term (current) use of antibiotics documented in this encounter Discontinued Medications Medication Sig Discontinue Reason Start Date End Da te azithromycin (ZITHROMAX) 500 mg tablet Take 1 tablet (500 mg total) by mouth daily Reorder 06/01/2023 09/12/2023 ethambutoL (MYAMBUTOL) 400 mg tabletIndications:Mycoba cteriosis Take 4 tablets (1,600 mg total) by mouth daily Reorder 06/01/2023 09/12/2023 documented as of this encounter Care Teams Senior Environmental Practice Leader Relationship Specialty Start Date End Date Karson Payne MD PCP - General Family Medicine 04/07/23 documented as of this encounter
--- OUTSIDE RECORDS SUMMARY | 2024-06-08 08:11 | XMS_ITS | Encounter Summary ---
Author Organization [facility] Address [address] [place] [address] Phone Care Team Providers Care Financial Sales Professional Name Role Phone Karson Payne MD Primary Care Provider +1- [phone] Reason for Visit * Reason Comments Follow-up Encounter Details Date Type Department Care Team (Latest Contact Info) Description 03/19/2024 3:20 PM CDT Office Visit [facility] Infectious Diseases [address] [place] [address] [address] [place] [address] Amanda Barahona MD [address] [place], [place] [id number] Cutaneous Mycobacterium marinum infection (Primary Dx); Immunocompromised state (HCC) Social History Tobacco Use Types Packs/Day [...] CDT Gender Identity Female 04/07/2023 6:04 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 Sexual Orientation Straight 04/07/2023 6: 04 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 documented as of this encounter Last Filed Vital Signs Vital Sign Reading Time Taken Comments Blood Pressure 124/84 03/19/2024 3:26 PM CDT Pulse 92 03/19/2024 3:26 PM CDT Temperature 37 ??C (98.6 ??F) 03/19/2024 3:26 PM CDT Respiratory Rate - - Oxygen Saturation - - Inhaled Oxygen Concentration - - Weight 152.9 kg (337 lb) 03/19/2024 3:26 PM CDT Height 180 cm (5' 10.87 ) 03/19/2024 3:26 PM CDT Body Mass Index 47.18 03/19/2024 3:26 PM CDT documented in this encounter Progress Notes * Amanda Barahona MD - 03/19/2024 3:20 PM CDT Infectious Disease Outpatient Follow [...] This started after falling on rocks/coral in [place]. Lesions have progressed into raised, scaly lesions [...] GI doctor - Omar Johns office at [facility] - jan Live 12/12/23: - continued improvement in lesions/nodules - less purple and nodular - otherwise doing well on ethambutol and azithro - tolerating with f/c/n/v/d, rash, no vision changes 03/19/24: - off antimicrobials - lesions overall improving, no worsening nodular areas or swelling - has questions re how to hasten improvement of discoloration Objective Vitals: Most Recent : BP 124/84 (BP Location: Right arm, Patient Position: Sitting) Pulse 92 Temp 37 ??C (98.6 ??F) (Oral) Ht 180 cm (5' 10.87 ) Wt (!) 152.9 kg (337 lb) BMI 47.18 kg/m?? Physical Exam: Physical Exam Constitutional: Appearance: Normal appearance. HENT: Head: Normocephalic. Right Ear: External ear normal. Left Ear: External ear normal. Nose: Nose normal. Eyes: Extraocular Movements: Extraocular movements intact. Conjunctiva/sclera: Conjunctivae normal. Cardiovascular: Rate and Rhythm: Normal rate. Pulmonary: Effort: Pulmonary effort is normal. No respiratory distress. Abdominal: General: There is no distension. Skin: Comments: Lesions flat. One slightly nodular area over L anterior ankle but improved from prior. Noedema or warmth. Discoloration much improved. See pics in media tab. Neurological: General: No focal deficit present. Mental Status: She is alert. Lab/Radiology/Diagnostic Review: I reviewed the following laboratory and imaging result(s). Micro: Lab Results Component Value Date MICROBIOLOGY (.) 04/07/2023 Final Report: Growth in broth only Mycobacterium marinum Susceptibility performed by the [facility], [address] [place] [address] [address], [place], [place] [address] * * * * * * * [...] to and read back by: Duglas Solis [phone] on 04/27/2023 13:24:38 by: Trent Cabrera MLS Urinalysis:No results for input(s): COLORU , CLARITYU , SPECGRAVU , PHURINE , PROTURQL , GLUCOSEUR , KETONESU , BILIRUBINU , BLOODUR , UROBILINOGUR , NITRITEU , LEUKESTUR , WBCUR in thelast 8736 hours. Hematology/Chemistry: CBC: Lab Results Component Value Date WBC 8.1 12/12/2023 HGB 13.8 12/12/2023 HCT 41.7 12/12/2023 LABPLAT 317 12/12/2023 NEUTOPHILPCT 56.0 12/12/2023 LYMPHOPCT 27.8 12/12/2023 MONOPCT 13.4 12/12/2023 EOSPCT 1.7 12/12/2023 CMP: Lab Results Component Value Date SODIUM 139 12/28/2023 POTASSIUM 3.3 12/12/2023 CHLORIDE 105 12/28/2023 CO2 19 (L) 12/28/2023 ANIONGAP 12 12/12/2023 GLUCOSE 96 12/28/2023 BUNSER 8 12/28/2023 CREATININE 0.72 12/28/2023 CALCIUM 9.4 12/28/2023 ALBUMIN 4.3 12/12/2023 ALKPHOS 64 12/12/2023 ALT 10 12/12/2023 AST 22 12/12/2023 BILITOT 0.5 12/12/2023 Creatinine:Estimated Creatinine Clearance: 131.8 mL/min (by Cockcroft-Gault based on SCr of 0.72 mg/dL). Resulted in the Past 12 Months 12/28/23 1237 12/12/23 1613 09/12/23 1603 CREATININE 0.72 1.08 0.73 Inflammatory Markers: Resulted in the Past 12 Months 04/06/23 2230 SEDRATE 17 CRP 17.0* Screening Results RPR:No results found for: LABRPR GC: No results found for: CTRACHOMATIS , NGONORRHOEAE Hepatitis Serologies: No results found for: HEPAIGG , HEPAIGM , HEPBSAG , HEPBSAB , HEPBCAB , HEPCAB Virologic Testing: HIV Screen:No results found for: [id number] CD4:No results found for: CD4ABS , CD4PCT Common Virologic Results: No results found for: KAO3QOC , CD4ABS , CD4PCT , NUCLEOSRT , [...] scraping LE [place] coral [place] found to have M marinum infection. Initially identified by PCR though AFB ultimately did grow M marinumas well (Candice pastor). Started on azithromycin 250 and ethambutol on 05/02 when PCR came back identifying M marinum. Azithromycin increased to 500mg daily on 05/09. Did not tolerate addition of rifabutin d/t development of fevers, headaches and myalgias the resolved after stopping. Completed therapy in 12/2023. 10/22 - Doing well x2 months off antimicrobials with no worsening of lesions. Overall, BLE appear improved from prior. Discussed that given NTM is slow- growing (vs typical bacteria), there is a chance lesions could worsen with a little more time off therapy, but to let us know if that is the case. Will monitor and patient to reach out if any worsening swelling, warmth, nodularity of discoloration. Pt also asked re seeing derm to inquire re topicals that might hasten improvement in discoloration - I think this is okay. Would avoid procedures though. 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 PRN. L. Melissa Barahona MD Infectious Diseases Addiction Medicine My total encounter time on 03/19/2024 was 31 minutes which was spent in the activities documented in the note. Also includes time spent in other [...] as of this encounter Visit Diagnoses Diagnosis Cutaneous Mycobacterium marinum infection- Primary Immunocompromised state (HCC) Unspecified immunity deficiency documented in this encounter Care Teams Financial Sales Professional Relationship Specialty Start Date End Date Karson Payne MD PCP - General Family Medicine 04/07/23 documented as of this encounter
--- OUTSIDE RECORDS SUMMARY | 2024-06-08 08:11 | XMS_ITS | Encounter Summary ---
Author Organization [facility] Address [address] [place] [address] Phone Care Team Providers Care Music Store Manager Name Role Phone Karson Payne MD Primary Care Provider +1- [phone] Reason for Visit * Reason Comments Follow-up Encounter Details Date Type Department Care Team (Latest Contact Info) Description 05/09/2023 3:00 PM RN CORRECTIONS Office Visit [facility] Infectious Diseases [address] [place] [address] [address] [place] [id number] Amanda Barahona MD [address] [place], [place] [id number] Cutaneous Mycobacterium marinum infection (Primary Dx); Immunocompromised state (HCC); Encounter for long-term (current) use of antibiotics [...] CDT Gender Identity Female 04/07/2023 6:04 PM RN CORRECTIONS Sexual Orientation Straight 04/07/2023 6: 04 PM RN CORRECTIONS documented as of this encounter Last Filed Vital Signs Vital Sign Reading Time Taken Comments Blood Pressure 129/89 05/09/2023 3:13 PM RN CORRECTIONS Pulse 88 05/09/2023 3:13 PM RN CORRECTIONS Temperature 36.8 ??C (98.2 ??F) 05/09/2023 3:13 PM CS T Respiratory Rate - - Oxygen Saturation - - Inhaled Oxygen Concentration - - Weight 146.5 kg (323 lb) 05/09/2023 3:13 PM RN CORRECTIONS Height 180 cm (5' 10.87 ) 05/09/2023 3:13 PM RN CORRECTIONS Body Mass Index 45.22 05/09/2023 3:13 PM RN CORRECTIONS documented in this encounter Ordered Prescriptions Prescription Sig Dispense Quantity Refills Last Filled Start Date End Date rifabutin (MYCOBUTIN) 150 mg capsuleIndications: Cutaneous Mycobacterium marinum infection Take 2 capsules (300 mg total) by mouth daily 60 capsule 1 05/09/2023 4 azithromycin (ZITHROMAX) 500 mg tabletIndications:M ycobacteriosis Take 1 tablet (500 mg total) by mouth daily 30 tablet 1 05/09/2023 4 documented in this encounter Progress Notes * Amanda Barahona MD - 05/09/2023 3:00 PM CST Infectious Disease Outpatient Follow Up Note Subjective Chief Complaint: wound infection 2/2 M marinum HPI: The patient is a 27 y.o. female with history of childhood seizures and ulcerative colitis (on AZA, infliximab) who presents with 4 month history of nonhealing lacerations on her bilateral lower feet/ankles with recent spread up her right le. This started after falling on rocks/coral in [place]. Lesions have progressed into raised, scaly lesions [...] also started to grow as of 05/05. No f/c/n/v/d, rash. Tolerating abx without issues. Noted that she maybe has 1-2 new lesions and a possible lesion on the hip that are new since hospitalization. Improving LE edema. No significant pain. Objective Vitals: Most Recent : BP 129/89 (BP Location: Right arm, Patient Position: Sitting) Pulse 88 Temp 36.8 ??C (98.2 ??F)(Oral) Ht 180 cm (5' 10.87 ) Wt (!) 146.5 kg (323 lb) BMI 45.22 kg/m?? Physical Exam: Physical Exam Constitutional: Appearance: Normal appearance. HENT: Head: Normocephalic. Right Ear: External ear normal. Left Ear: External ear normal. Nose: Nose normal. Eyes: Extraocular Movements: Extraocular movements intact. Conjunctiva/sclera: Conjunctivae normal. Cardiovascular: Rate and Rhythm: Normal rate. Pulmonary: Effort: Pulmonary effort is normal. No respiratory distress. Abdominal: General: There is no distension. Musculoskeletal: Right lower leg: Edema present. Left lower leg: Edema present. Skin: Comments: Bilateral violaceous nodular lesions around ankles with some lymphangitic spread up le.No sig pitting edema, erythema or warmth. Neurological: General: No focal deficit present. Mental Status: She is alert. Lab/Radiology/Diagnostic Review: I reviewed the following laboratory and imaging result(s). Micro: Lab Results Component Value Date MICROBIOLOGY (.) 04/07/2023 Preliminary Report: Acid Fast Bacilli to be identified MICROBIOLOGY Final Report: Rare Mixed skin microorganisms. 04/07/2023 MICROBIOLOGY Final Report: No growth of fungus 04/07/2023 MICROBIOLOGY (.) 04/07/2023 Final Report: Mycobacterium marinum For additional result information, see attached scanned report. Notification of: Mycobacterium marinum called to and read back by: Duglas Will [phone] on 04/27/2023 13:24:38 by: Trent Cabrera MLCandice Urinalysis:No results for input(s): COLORU , CLARITYU [...] 04/06/2023 BILITOT 0.2 04/06/2023 Creatinine:Estimated Creatinine Clearance: 131.1 mL/min (by Cockcroft-Gault based on SCr of [...] Virologic Testing: HIV Screen:No results found for: [id number] CD4:No results found for: CD4ABS , CD4PCT Common Virologic Results: No results found for: VLI4NVO , CD4ABS , CD4PCT , NUCLEOSRT , [...] scraping LE on [place] ocean in [place] found to have M marinum infection. Initially identified by PCR though AFB now growing. Unfortunately there are also bacteria growing as well so having to subculture and may take several more weeks for any susceptibility results (and those would not have formal breakpoints). Started on azithromycin 250 and ethambutol on 05/02 when PCR came back identifying M marinum. Given this pt is immunocompromised on 2 agents predisposing to mycobacterial infections, will increase azithromycin to 500mg daily (higher dosing end for mycobacterial infections) and add rifabutin 300mg daily in addition to ethambutol. Discussed that the rifabutin may decrease the efficacy of her h ormonal OCP and that back-up contraception like condoms should be used. She is also not interested in non-hormonal method like IUD in the interim though encouraged to discuss with her PCP or resources representative should she change her mind. Would anticipate several months of treatment. Did discuss with Dr. Malin, NTM expert in our clinic. Will see back in 4 weeks to ensure tolerating regimen and get monitoringlabs. Declined routine STI screening. 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 Abdi Barahona MD Infectious Diseases Addiction Medicine My total encounter time on 05/09/2023 was 40 minutes which was spent in [...] time spent in any separately reportable services. CORRECTIONS documented in this encounter Plan of Treatment Not on file documented as of this encounter Visit Diagnoses Diagnosis Cutaneous Mycobacterium marinum infection- Primary Immunocompromised state (HCC) Unspecified immunity deficiency Encounter for long-term (current) use of antibiotics documented in this encounter Discontinued Medications Medication Sig Discontinue Reason Start Date End Da te azithromycin (ZITHROMAX) 250 mg tablet Take 1 tablet (250 mg total) by mouth daily 05/01/2023 05/09/2023 documented as of this encounter Care Teams Music Store Manager Relationship Specialty Start Date End Date Karson Payne MD PCP - General Family Medicine 04/07/23 documented as of this encounter
--- OUTSIDE RECORDS SUMMARY | 2024-06-08 08:11 | XMS_ITS | Encounter Summary ---
Author Organization [facility] Healthcare Address [address] [place] [address] Care Team Providers Care Vessel Liner Name Role Phone Karson Payne MD Primary Care Provider +1- [phone] Encounter Details Date Type Department Care Team (Latest Contact Info) Description 12/12/2023 4:13 PM CDT - 12/12/2023 11:59 PM CDT Hospital Encounter [address] [address] Discharge Disposition: Discharge to home or self [...] CDT Gender Identity Female 04/07/2023 6:04 PM FIRE MEDIC Sexual Orientation Straight 04/07/2023 6: 04 PM FIRE MEDIC documented as of this encounter Medications at [...] by mouth daily azithromycin (ZITHROMAX) 500 mg tabletIndications:M ycobacteriosis Take 1 tablet (500 mg total) by mouth daily 30 tablet 12/12/2023 4 ethambutoL (MYAMBUTOL) 400 mg tabletIndications:C utaneous Mycobacterium marinum infection Take 4 tablets (1,600 mg total) by mouth daily 120 tablet 12/12/2023 4 documented as of this encounter Discharge Disposition Disposition Code Departure Means Destination Discharge to home or self care documented in this encounter Plan of Treatment Not on file documented as of this encounter Visit Diagnoses Not on filedocumented in this encounter Care Teams Vessel Liner Relationship Specialty Start Date End Date Karson Payne MD PCP - General Family Medicine 04/07/23 documented as of this encounter
--- OUTSIDE RECORDS SUMMARY | 2024-06-08 08:11 | XMS_ITS | Encounter Summary ---
Author Organization [facility] Healthcare Address [address] [place] [address] Care Team Providers Care Hydroponics Worker Name Role Phone Karson Payne MD Primary Care Provider +1- [phone] Encounter Details Date Type Department Care Team (Late st Contact Info) Description 05/26/2023 Orders Only Infectious Diseases Duglas Solis MD [address] [address] Social History Tobacco Use Types Packs/Day Years [...] CDT Gender Identity Female 04/07/2023 6:04 PM MASTERCAM PROGRAMMER Sexual Orientation Straight 04/07/2023 6: 04 PM MASTERCAM PROGRAMMER documented as of this encounter Plan of Treatment Not on file documented as of this encounter Visit Diagnoses Not on filedocumented in this encounter Care Teams Hydroponics Worker Relationship Specialty Start Date End Date Karson Payne MD PCP - General Family Medicine 04/07/23 documented as of this encounter
--- OUTSIDE RECORDS SUMMARY | 2024-06-08 08:11 | XMS_ITS | Encounter Summary ---
Author Organization [facility] Healthcare Address [address] [place] [address] Care Team Providers Care Pumping Station Supervisor Name Role Phone Karson Payne MD Primary Care Provider +1- [phone] Encounter Details Date Type Department Care Team (Late st Contact Info) Description 05/01/2023 Telephone Infectious Diseases Duglas Solis MD [address] [address] Social History Tobacco Use Types Packs/Day Years [...] CDT Gender Identity Female 04/07/2023 6:04 PM EXCHANGE CLERK Sexual Orientation Straight 04/07/2023 6: 04 PM EXCHANGE CLERK documented as of this encounter Miscellaneous Notes * Telephone Encounter - Duglas Solis MD - 05/01/2023 2:10 PM EXCHANGE CLERK I spoke with Ms. Zavaleta again after the PCR of her skin biopsy resulted positive for Mycobacterium marinum. That was by far our leading diagnostic suspicion and makes a lot of sense. In fact, this is an extremely classic presentation for infection with that organism. AFB culture (even incubated at 30 degrees) remains without growth so far. In general, M. marinum ispretty susceptible to most antibiotics used in the treatment of non-tuberculous mycobacteria. Discussed with our NTM expert Dr. Malin. He recommends azithromycin and ethambutol. Azithromycin seems to be much better tolerated than clarithromycin. Confirmed no meaningful drug interactions. I sent prescriptions to her preferred pharmacy for azithromycin 250 mg PO daily + ethambutol 1600 mg (15 ABW mg/kg) daily. Some references (e.g. Naik Guide) recommend up to 25 mg/kg daily of ethambutol, but that would be a very large dose given her weight of 147.9 kg. I gave her instructions as to how to perform a color blind test online prior to treatment. She can have an ECG done in clinic to assess her QTc on azithromycin. She sees Dr. Barahona in Infectious Disease clinic next week on 05/09. -- Duglas Solis MD Infectious Disease Fellow ANGE CLERK ANGE CLERK documented in this encounter Plan of Treatment Not on file documented as of this encounter Visit Diagnoses Not on filedocumented in this encounter Care Teams Pumping Station Supervisor Relationship Specialty Start Date End Date Karson Payne MD PCP - General Family Medicine 04/07/23 documented as of this encounter
--- OUTSIDE RECORDS SUMMARY | 2024-06-08 08:11 | XMS_ITS | Encounter Summary ---
Author Organization [facility] Address [address] [place] [address] Care Team Providers Care Chemical Operations And Training Name Role Phone Wade Nickerson MD PhD Primary Care Provider Reason for Visit * Reason Comments Seizures Encounter Details Date Type Department Care Team (Late st Contact Info) Description 11/26/2018 11:00 AM CDT Office Visit [facility] [address] [facility] [address] [place] [address] Wade Nickerson MD PhD [address] [facility] [address] [place], [place] [id number] Seizure disorder (CMS/HCC) (Primary Dx) Social History Tobacco Use Types Packs/Day Years Used Date Smoking Tobacco: Never Smokeless Tobacco: Never Alcohol Use Standard Drinks/Week Comments Yes 0 (1 standard drink = 0.6 oz pur e alcohol) Comments Unknown Sex and Gender Information Value Date Recorded Sex Assigned at Not on file Legal Sex Female 11:25 AM CDT Gender Identity Female 04/07/2023 6:04 PM SUPERVISOR CURED MEATS Sexual Orientation Straight 04/07/2023 6: 04 PM SUPERVISOR CURED MEATS documented as of this encounter Last Filed Vital Signs Vital Sign Reading Time Taken Comments Blood Pressure 122/70 11/26/2018 10:59 AM CDT Pulse 80 11/26/2018 10:59 AM CDT Temperature - - Respiratory Rate 16 11/26/2018 10:59 AM CDT Oxygen Saturation - - Inhaled Oxygen Concentration - - Weight 133.4 kg (294 lb) 11/26/2018 10:59 AM CDT Height 180.3 cm (5' 11 ) 11/26/2018 10:59 AM CDT Body Mass Index 41 11/26/2018 10:59 AM CDT documented in this encounter Progress Notes * Wade Nickerson MD PhD - 11/26/2018 11:00 AM CDT NEW PATIENT CONSULT Patient ID: Paige Zavaleta is a 23 y.o. female. This is a consult requested by Wade Nickerson MD P* Reason for the consultation: Seizure disorder Chief Complaint Seizures HPI: This is a 23-year-old woman referred for neurologic consultation due to a history of a seizure disorder. She has been followed by her detail assembler in the [place] area. Her first seizure occurred in 2009. She had a history before that of her vision going dark in feeling lightheaded associated with standing. On one occasion after that she was walking to the bathroom when she apparently passed out and had a generalized tonic-clonic seizure witnessed by her family. She does not recall any tongue biting or incontinence but think she was confused afterwards. Apparently her detail assembler discussed itwith a neurologist and she was initiated on lamotrigine. She developed a rash and it was discontinued. She was then started on Depakote which she has been on since that time. Patient's recall is thatshe has tried tapering off of Depakote but blacked out at the time and was restarted on medication.She feels she has had two or three seizures in total in her life but the last two were associated with discontinuation of Depakote. She has no real history of myoclonic jerks. She has no history of ab sence spells. She has no history of febrile convulsions and no history of epilepsy in the family. There is no history of a severe head injury. She has not had any imaging studies of the brain that she recalls. Her initial EEG was mildly abnormal with a solitary burst of generalized spike and wave activity without any associated slowing. Numerous subsequent EEGs have all been normal. PMH: Past Medical History: Diagnosis Date ??? Seizures (CMS/HCC) History reviewed. No pertinent surgical history. MEDICATIONS: Current Outpatient Medications: ??? AZURETTE, 28, 0.15-0.02 mgx21 /0.01 mg x 5 per tablet, Take 1 tablet by mouth daily, Disp: , Rfl: 6 ??? divalproex (DEPAKOTE SPRINKLE) 125 mg capsule, TAKE 3 CAPSULES BY MOUTH IN THE MORNING AND 4 INTHE EVENING AT 7PM., Disp: , Rfl: 6 SOCIALHX: reports that she has never smoked. She has never used smokeless tobacco. She reports that she drinks alcohol. FHX: History reviewed. No pertinent family history. Both parents are alive and well. ROS: Review of Systems Constitutional: Negative for fatigue and unexpected weight change. HENT: Negative for ear pain, tinnitus and trouble swallowing. Eyes: Negative for pain. Respiratory: Negative for shortness of breath and wheezing. Cardiovascular: Negative for chest pain and palpitations. Gastrointestinal: Negative for abdominal pain, constipation and nausea. Genitourinary: Negative for dysuria and frequency. Musculoskeletal: Negative for arthralgias and back pain. Skin: Negative for rash. Neurological: Per HPI Hematological: Does not bruise/bleed easily. Psychiatric/Behavioral: Positive for dysphoric mood. BP 122/70 (BP Location: Right arm, Patient Position: Sitting) Pulse 80 Resp 16 Ht 180.3 cm (5' 11 ) Wt 133.4 kg (294 lb) BMI 41.00 kg/m?? GENERAL EXAMINATION: Well-appearing. NEUROLOGIC EXAMINATION: MENTAL STATUS: Attention, concentration and fund of knowledge normal. AFFECT: Normal. LANGUAGE: Fluent. No dysarthria CRANIAL NERVES: II: Pupils equal round and reactive to light. Sharp discs. Visual funes are full to finger confrontation. III, IV, & : Extraocular movements full without nystagmus. V: Facial sensation intact to soft touch and pinprick. VII: Facial muscles symmetric. VIII: Hearing grossly intact. IX & X: Palate rises symmetrically. XI: Normal shoulder shrug. XII: Tongue protrudes to the midline. MOTOR: No drift. Fine finger movements performed symmetrically. Normal bulk, tone, and strength throughout. No involuntary movements seen. SENSORY: Light touch, pinprick, vibratory sensation and proprioception normal. COORDINATION: Ndntou-rvvc-faykra and rapid alternating movements of the hands normal. DEEP TENDON REFLEXES: 1+ brachioradialis, biceps and triceps. 2+ knees and 2+ ankles. PLANTAR RESPONSES: Flexor bilaterally. BASSETT'S: GAIT: Normal stride, arm swing and turns. Able to stand on toes and heels. Romberg negative Tandem is intact. VASCULAR: No carotid bruits. HEART: Regular rate and rhythm. EXTREMITIES: SPINE: LABORATORY & DIAGNOSTIC STUDIES REVIEWED: I reviewed records she provided including reports of EEGs and labs. ASSESSMENT/PLAN: 1. Seizure disorder. The patient has not had any seizures since age 18 when her primary attempted to taper her off of Depakote. She is interested in either discontinuing antiepileptic medication or switching to a different antiepileptic drug if necessary. This is certainly reasonable as we would like to avoid valproic acid in women of childbearing years if possible. She has not had lab work in two years. At this point I am going to check a CBC, CMP and valproic acid level. We will also check an[facility]G at [facility]. I am going to refer her to the comprehensive epilepsy Clinic at [facility] who I think may be better able to advised her regarding the safety of coming off of medication at this time Diagnoses and all orders for this visit: Seizure disorder (CMS/HCC) (Primary) - Comprehensive metabolic panel; Future - CBC with auto differential; Future - Valproic acid level, total; Future - EEG; Future Dictation completed by [employer] software. Log Chipper Operator variances may occur. Wade Nickerson M.D., Ph.D. documented in this encounter Miscellaneous Notes * Addendum Note - Sadaf Abreu MA - 11/26/2018 11:00 AM CDTAddended by: SADAF ABREU on: 11/26/2018 12:35 PM Modules accepted: Orders documented in this encounter Plan of Treatment Scheduled Orders Name Type Priority Associated Diagnoses Orde r Schedule Comprehensive metabolic panel Lab Routine Seizure disorder (CMS/HCC) 1 Occurrences starting 11/26/2018 until 11/27/2019 CBC with auto differential Lab Routine Seizure disorder (CMS/HCC) 1 Occurrences starting 11/26/2018 until 11/27/2019 Valproic acid level, total Lab Routine Seizure disorder (CMS/HCC) Expected: 11/26/2018, Expires: 11/27/2019 documented as of this encounter Visit Diagnoses Diagnosis Seizure disorder (CMS/HCC) (HCC)- Primary Unspecified epilepsy without mention of intractable epilepsy documented in this encounter Historical Medications * This list may reflect changes made after this encounter. Viktor FRANKS, 0.15-0.02 mgx21 /0.01 mg x 5 per tablet Take 1 tablet by mouth daily 6 11/18/2018 04/07/2023 divalproex (DEPAKOTE SPRINKLE) 125 mg capsule TAKE 3 CAPSULES BY MOUTH IN THE MORNING AND 4 IN THE EVENING AT 7PM. 6 11/18/2018 04/07/2023 added in this encounter Care Teams Chemical Operations And Training Relationship Specialty Start Date End Date Wade Nickerson MD PhD [address] [facility] [address] [place] [address] PCP - General Neurology 11/26/18 04/06/23 documented as of this encounter
--- OUTSIDE RECORDS SUMMARY | 2024-06-08 08:13 | XMS_ITS | Encounter Summary ---
Author Organization [facility] Address [address] [place] [address] Care Team Providers Care Reheater Helper Name Role Phone Karson Payne MD Primary Care Provider [phone] Reason for Visit * Reason Comments Well Women Exam Encounter Details Date Type Department Care Team (Late st Contact Info) Description 04/17/2023 4:00 PM JIG INSPECTOR Office Visit [facility] BRANCH ASSOCIATE [address] [facility] [address] [place] [address] Alexus Díaz MD [address] [facility] [address] [place], [place] [id number] Well woman exam with routine gynecological exam [...] Comments Blood Pressure 124/80 04/17/2023 4:12 PM JIG INSPECTOR Pulse - - Temperature - - Respiratory Rate - - Oxygen Saturation - - Inhaled Oxygen Concentration - - Weight 146.1 kg (322 lb) 04/17/2023 4:12 PM JIG INSPECTOR Height 180.3 cm (5' 11 ) 04/17/2023 4:12 PM JIG INSPECTOR Body Mass Index 44.91 04/17/2023 4:12 PM JIG INSPECTOR documented in this encounter Progress Notes * Alexus Díaz MD - 04/17/2023 4:12 PM CST General corrugator supervisor Annual Exam History of Present Illness: Ms. [...] appointment. RTC 1 year Alexus Díaz MD INSPECTOR documented in this encounter Plan of Treatment Not on file documented as of this encounter Visit Diagnoses Diagnosis Well woman exam with routine gynecological exam- Primary Routine gynecological examination * Assessment & Plan Note - Alexus Díaz MD - 04/17/2023 4:23 PM JIG INSPECTOR Associated Problem(s): Well woman exam with routine gynecological exam Pap smear due 2024 Not yet due for mammogram. Family planning reviewed. She is currently using combined oral contraceptives for contraception anddesires to use combined oral contraceptives in the future. She has not completed childbearing. STI screening declined at this appointment. RTC 1 year INSPECTOR documented in this encounter Care Teams Reheater Helper Relationship Specialty Start Date End Date Karson Payne MD [address] [address] PCP - General 07/12/21 documented as of this encounter
--- OUTSIDE RECORDS SUMMARY | 2024-06-08 08:13 | XMS_ITS | Encounter Summary ---
Author Organization [facility] Address [address] [place] [address] Care Team Providers Care Loft Worker Head Name Role Phone Karson Payne MD Primary Care Provider [phone] Encounter Details Date Type Department Care Team [...] on filedocumented in this encounter Care Teams Loft Worker Head Relationship Specialty Start Date End Date Karson Payne MD [address] [address] PCP - General 07/12/21 documented as of this encounter
--- OUTSIDE RECORDS SUMMARY | 2024-06-08 08:13 | XMS_ITS | Encounter Summary ---
Author Organization [facility] Address [address] [place] [address] Care Team Providers Care Leather Goods Maker Name Role Phone Karson Payne MD Primary Care Provider Reason for Visit * Reason Onset Date Comments Refill Request 03/31/2023 Encounter Details Date Type Department Care Team (Late st Contact Info) Description 03/31/2023 Telephone [facility] - ULTRASONOGRAPHER [address] [facility] [address] [place] [address] Alexus Díaz MD [address] [facility] [address] [place], [place] [id number] Refill Request Social History Tobacco Use Types [...] pt having her prescriptions transferred to this [facility], no refills remaining from [facility] 04/11/22. Pt requests refill norgestimate tablets, 90 day supply sent to continue therapy until pending WWE 04/17/23. * Telephone Encounter - Laila Bradford - 03/31/2023 12:[address] [facility] in [place], [place] os calling in regards to pt's BC refill. CB #: [phone] documented in this encounter Plan of Treatment Not on file documented as of this encounter Visit Diagnoses Not on filedocumented in this encounter Care Teams Leather Goods Maker Relationship Specialty Start Date End Date Karson Payne MD [address] [address] PCP - General 07/12/21 documented as of this encounter
--- OUTSIDE RECORDS SUMMARY | 2024-06-08 08:13 | XMS_ITS | Clinical Summary ---
Author Organization [facility] Address [address] [place] [address] Care Team Providers Care Horologist Name Role Phone Karson Payne MD Primary Care Provider [phone] Source Comments [facility],non-owned Affiliates and Associated Physician Practices is amultiple site organization consisting of ambulatory clinics and hospital sitesin [place], [place], [place] and [place]. This disclosure is being madepursuant to the Care Everywhere program and may not contain all information available regarding this patient. Last updated 18.[facility] Allergies No known active allergies Medications * [...] 04/11/2022 Assessment & Plan (04/17/2023 4:24 PM WARP HAND): Pap smear due 2024 Not yet due for mammogram. Family planning reviewed. She is currently using combined oral contraceptives for contraception and desires to use combined oral contraceptives in the future. She has not completed childbearing. STI screening declined at this appointment. RTC 1 year Assessment & Plan (04/11/2022 3:41 PM WARP HAND): Pap smear performed - with reflex HPV. [...] (07/21/2021): Added automatically from request for surgery [id number] Irritable bowel syndrome with diarrhea 9 Seizure [...] Comments Blood Pressure 124/80 04/17/2023 4:12 PM WARP HAND Pulse 116 04/11/2022 3:07 PM WARP HAND Temperature 36.5 ??C (97.7 ??F) 06/30/2016 2:30 PM CS T Respiratory Rate 18 06/30/2016 2:30 PM WARP HAND Oxygen Saturation 97% 04/11/2022 3:07 PM WARP HAND Inhaled Oxygen Concentration - - Weight 146.1 kg (322 lb) 04/17/2023 4:12 PM WARP HAND Height 180.3 cm (5' 11 ) 04/17/2023 4:12 PM WARP HAND Body Mass Index 44.91 04/17/2023 4:12 PM WARP HAND Plan of Treatment Health Maintenance Due Date [...] IMAGE-GUIDED RFLX HPV Routine 04/11/2022 3:38 PM WARP HAND Well woman exam with routine gynecological exam from Last 3 Months or Most Recently Relevant to Health Maintenance Results * PAP IMAGE-GUIDED RFLX HPV (04/11/2022 3:38 PM WARP HAND) Case Report Gynecologic Cytology Report ? Case: [id number] ? Authorizing Provider: ??Alexus Díaz MD ?Collected: ? 04/11/2022 03:38 PM ? Ordering Location: ? [facility] ? Received: ?04/12/2022 12:15 PM ? [facility] ? First Screen: ?Homer, Scott Griffiths ? Specimen: ?THINPREP - IMAGE GUIDED, Cervix/Endocervix ? 04/13/2022 8:05 AM WARP HAND [facility] LMP 03/29/22 04/13/2022 8:05 AM WARP HAND [facility] Menstrual Status Oral Contraceptives 04/13/2022 8:05 AM WARP HAND [facility] Specimen Adequacy Satisfactory for evaluation, endocervical/trans formation zone component present. 04/13/2022 8:05 AM WARP HAND [facility] Categorization Negative for intraepithelial lesion or malignancy. 04/13/2022 8:05 AM WARP HAND [facility] Interpretation CLINICAL TRAINING COORDINATOR Negative for intraepithelial lesion or malignancy. 04/13/2022 8:05 AM WARP HAND [facility] Pap Footnote The Pap Smear is a screening test. False positive and false negative results occur. Negative results do not preclude abnormalities, thus clinical correlation is required. This specimen was evaluated by the ThinPrep Imaging System along with an additional manual rescreening by a electrical hardware engineer and/or pathologist. 04/13/2022 8:05 AM WARP HAND [facility] Pathology/Cytolo gy MISCELLANEOUS SAMPLES / Unknown 04/11/2022 3:38 PM WARP HAND 04/12/2022 12:15 PM WARP HAND Alexus Díaz MD LAB - PATHOLOGY/CY TOLOGY ORDERABLES [facility] [address] [phone] from Last 3 Months or Most Recently Relevant to Health Maintenance Care Teams Horologist Relationship Specialty Start Date End Date Karson Payne MD [address] [address] PCP - General 07/12/21
--- OUTSIDE RECORDS SUMMARY | 2024-06-08 08:13 | XMS_ITS | Patient Health Summary ---
Author Organization [facility] Address [address] [place] [address] Care Team Providers Care Mailroom Supervisor Name Role Phone Karson Payne MD Primary Care Provider +1- [phone] [facility] from [facility],non-owned Affiliates and Associated Physician Practices is amultiple site organization consisting of ambulatory clinics and hospital sitesin [place], [place], [place] and [place]. This disclosure is being madepursuant to the Care Everywhere program and may not contain all information available regarding this patient. Last updated 18.[facility] Allergies No known active allergies Medications * [...] Comments Blood Pressure 124/80 04/17/2023 4:12 PM PROMOTIONAL MARKETING AGENT Pulse 116 04/11/2022 3:07 PM PROMOTIONAL MARKETING AGENT Temperature 36.5 ??C (97.7 ??F) 06/30/2016 2:30 PM CS T Respiratory Rate 18 06/30/2016 2:30 PM PROMOTIONAL MARKETING AGENT Oxygen Saturation 97% 04/11/2022 3:07 PM PROMOTIONAL MARKETING AGENT Inhaled Oxygen Concentration - - Weight 146.1 kg (322 lb) 04/17/2023 4:12 PM PROMOTIONAL MARKETING AGENT Height 180.3 cm (5' 11 ) 04/17/2023 4:12 PM PROMOTIONAL MARKETING AGENT Body Mass Index 44.91 04/17/2023 4:12 PM PROMOTIONAL MARKETING AGENT Procedures * IMMUNOFLUORESCENT STUDY DERM(Performed 03/28/2023) * [...] disease) * CULTURE YEAST WITH DIRECT FLUORESCENT ABDIRAHMAN(Performed 10/29/2021) Performed for Screen for STD (sexually [...] Case Report Dermatopathol ogy Report ? Case: [id number] ? Authorizing Provider: ??Luis Harris MD ?Collected: ? 03/28/2023 12:00 AM ? Ordering Location: ? [facility] ? Received: ?03/29/2023 04:58 PM ? Pathologist: ? Kasie Shine MD ? Specimen: ?Skin, right ant dorsal foot ? 3 2:38 PM [facility] DERMATOPATHOLOGY LABORATORY Final Diagnosis Specimen A. SKIN, right ant dorsal foot: NO IMMUNOPATHOLO GICAL ABNORMALITY (L98.9) (see fixed tissue results) 3 2:38 PM [facility] DERMATOPATHOLOGY LABORATORY Direct Immunofluorescence Report - Specimen A Specimen A IgA IgM IgG C3 CollV Fibrinogen Epidermis Negative Rare colloid Negative Negative Negative Negative Basement Membrane Negative Negative Negative Negative 2+ Negative Vessels Negative Negative Negative Negative 2+ Negative Interstitium Negative Negative Negative Negative Negative Non specific 3 2:38 PM T DERMATOPATHOLOGY LABORATORY Clinical History R/O Atypical 3 2:38 PM [facility] DERMATOPATHOLOGY LABORATORY Gross Description Specimen A: Received is one Matthew's media filled container labeled with the patient's name and designated right ant dorsal foot. The specimen consists of a shave biopsy measuring 6x4x1 mm. The specimen is submitted in whole for direct immunofluores cence testing. 3 2:38 PM [facility] DERMATOPATHOLOGY LABORATORY Microscopic Description Specimen A. SKIN, right ant dorsal foot: Controls were run in parallel. Staining is negative with IgA, IgM, IgG, and C3. Collagen IV stains the basement membrane zone and vessels. Fibrinogen shows non-specific staining. A hematoxylin and eosin stained frozen section shows no significant inflammation. See fixed tissue results. 3 2:38 PM [facility] DERMATOPATHOLOGY LABORATORY Disclaimer An external and internal positive and negative controls are appropriate for the histochemical , immunohistoch emical and immunofluores cence stain(s) in this case (if any), except where stated explicitly. The performance characteristi cs of the stain(s) cited in this report were developed and its performance characteristi c determined by the Dermatopathol ogy Laboratory at [facility], directed by Dr. Ruddy Goodwin. These tests need not be, and therefore are not, approved by the [place] Food and Drug Administratio n. The tests are used for clinical purposes. Billing Codes Specimen Charges Stain Charges 87836 13832 62100 17463 11419 66296 1 1 1 1 1 1 3 2:38 PM [facility] DERMATOPATHOLOGY LABORATORY Embedded Images 3 2:38 PM CDT DERMATOPATHOLOGY LABORATORY Pathology/Cytolog y TISSUE SPECIMEN FROM SKIN / Unknown 03/28/2023 03/29/2023 4:58 PM CDT Luis Harris MD LAB - PATHOLOGY/CYTO LOGY ORDERABLES Performing Organization Address [facility]/State/ZIP Co de Phone Number DERMATOPATHOLOGY LABORATORY [facility] - Department of Dermatology [facility] Medicine [address] [place] [address] [address] [phone] * DERMATOPATHOLOGY (03/28/2023 12:00 AM CDT) Case Report Dermatopathology Report ? Case: [id number] ? Authorizing Provider: ??Luis Harris MD ?Collected: ? 03/28/2023 12:00 AM ? [facility] ? Received: ?03/29/2023 04:56 PM ? Pathologist: ? Kasie Shine MD ? Specimen: ?Skin, right lateral ankle ? 3 5:09 PM [facility] DERMATOPATHOLOGY LABORATORY Final Diagnosis Specimen A. SKIN, right lateral ankle: EPIDERMAL ACANTHOSIS WITH MIXED DERMAL INFLAMMATORY INFILTRATE (L92.3) (see microscopic description and comment) 3 5:09 PM [facility] DERMATOPATHOLOGY LABORATORY Clinical History R/O Atypical 3 5:09 PM [facility] DERMATOPATHOLOGY LABORATORY Gross Description Specimen A: Received is one formalin filled container labeled with the patient's name and designated right lateral ankle. The specimen consists of a shave biopsy measuring 7x6x2 mm. Jar 0. 3 5:09 PM [facility] DERMATOPATHOLOGY LABORATORY Microscopic Description Specimen [...] concurs with the diagnosis. 3 5:09 PM [facility] DERMATOPATHOLOGY LABORATORY Disclaimer An external and internal positive and negative controls are appropriate for the histochemical, immunohistochemical and immunofluorescence stain(s) in this case (if any), except where stated explicitly. The performance characteristics of the stain(s) cited in this report were developed and its performance characteristic determined by the Dermatopathology Laboratory at [facility], directed by Dr. Ruddy Goodwin. These tests need not be, and therefore are not, approved by the [place] Food and Drug Administration. The tests are used for clinical purposes. Billing Codes Specimen Charges Stain Charges 76767 1 20519 81577 07740 1 1 1 3 5:09 PM [facility] DERMATOPATHOLOGY LABORATORY Embedded Images 3 5:09 PM [facility] DERMATOPATHOLOGY LABORATORY Pathology/Cytolog y TISSUE SPECIMEN FROM SKIN / Unknown 03/28/2023 03/29/2023 4:56 PM CDT Luis Harris MD LAB - PATHOLOGY/CYTO LOGY ORDERABLES Performing Organization Address [facility]/State/ZIP Co de Phone Number DERMATOPATHOLOGY LABORATORY [facility] - Department of Dermatology [address], [address] [phone] * PAP IMAGE-GUIDED RFLX HPV (04/11/2022 3:38 PM PROMOTIONAL MARKETING AGENT) Case Report Gynecologic Cytology Report ? Case: [id number] ? Authorizing Provider: ??Alexus Díaz MD ?Collected: ? 04/11/2022 03:38 PM ? Ordering Location: ? [facility] ? Received: ?04/12/2022 12:15 PM ? Gynecology and Women's ? Health ? First Screen: ?Scott Coronel ? Specimen: ?THINPREP - IMAGE GUIDED, Cervix/Endocervix ? 04/13/2022 8:05 AM [facility] LMP 03/29/22 04/13/2022 8:05 AM [facility] Menstrual Status Oral Contraceptives 04/13/2022 8:05 AM [facility] Specimen Adequacy Satisfactory for evaluation, endocervical/trans formation zone component present. 04/13/2022 8:05 AM [facility] Categorization Negative for intraepithelial lesion or malignancy. 04/13/2022 8:05 AM [facility] Interpretation CLINICAL SERVICES ASSISTANT Negative for intraepithelial lesion or malignancy. 04/13/2022 8:05 AM [facility] Pap Footnote The Pap Smear is a screening test. False positive and false negative results occur. Negative results do not preclude abnormalities, thus clinical correlation is required. This specimen was evaluated by the ThinPrep Imaging System along with an additional manual rescreening by a editor dictionary and/or pathologist. 04/13/2022 8:05 AM [facility] PATH[facility] LAB Pathology/Cytolo gy MISCELLANEOUS SAMPLES / Unknown 04/11/2022 3:38 PM PROMOTIONAL MARKETING AGENT 04/12/2022 12:15 PM PROMOTIONAL MARKETING AGENT Alexus Díaz MD LAB - PATHOLOGY/CY TOLOGY ORDERABLES U PATHOLOGY LAB [address] [place] [address], [facility] [phone] * WET PREP - POINT OF CARE [...] Gen-Probe Aptima Trichomonas vaginalis Assay on the [place] system and rectal and pharyngeal swabs with Gen-Probe Aptima combo 2 were determined by the Molecular Diagnostics Laboratory at [facility]. ??They have not been cleared or approved [...] Kelsie Mitchell MD LAB - MICROBIOLOGY ORDERABLES [facility] PATHOLOGY LAB [address] [place], [place] [address] [phone] * CULTURE YEAST WITH DIRECT FLUORESCENT ABDIRAHMAN (10/29/2021 3:32 PM CDT) Smear [facility] Comment: ??CULTURE, YEAST, W/DIRECT FLUORESCENT ABDIRAHMAN ?Micro Number: ?[id number] ??Test Status: ? Final ??Specimen Source: ?? Genital ??Specimen Quality: ??Adequate ??Smear: ? No yeast seen ??Result: ?No yeast isolated Test Performed at: [facility] ??[id number] GLEN KLEIN MD Microbiology SPECIMEN FROM GENITAL SYSTEM / Unknown 10/29/2021 3:32 PM CDT 10/30/2021 12:01 AM CDT Kelsie Mitchell MD LAB - MICROBIOLOGY ORDERABLES [facility] [address] [place] [address] * FUNGUS ABDIRAHMAN - POINT OF CARE (AMB) [facility] (10/29/2021) Only the most recent of2 resultswithin the time period is included. ABDIRAHMAN Prep No Fluid BODY FLUID SPECIMEN / Unknown 10/29/2021 Kelsie Mitchell MD LAB - POINT OF CARE ORDERABLES * PH FLUID - POCT (AMB) [facility] (09/27/2021) pH Vaginal 5.0 Fluid ENTIRE VAGINA / Unknown 09/27/2021 Raysa Asher APRN-[facility]WER LAB - POINT OF CARE ORDERABLES * INFLUENZA A+B - POINT OF CARE (AMB) (06/30/2016) Influenza A Antigen Rapid Negative Negative Influenza B Antigen Rapid Negative Negative Influenza Internal Control positive NEGATIVE - POSITIVE Influenza Lot Number [id number] Influenza Expiration Date 12/07/2017 Other NASOPHARYNGEAL SWAB / Unknown 06/30/2016 Wanda Helton MEDICAL SECRETARY RECEPTIONIST-[facility] LAB - POINT O F CARE ORDERABLES * SKIN TEST PPD - POINT OF CARE (02/29/2016 3:30 PM CDT) PPD Other (qualifier value) MISCELLANEOUS SAMPLES / Unknown 02/29/2016 3:30 PM CDT Lou Graham MEDICAL SECRETARY RECEPTIONIST-[facility] LAB - POINT OF CARE ORDERABLES Care Teams Mailroom Supervisor Relationship Specialty Start Date End Date Karson Payne MD [address] [phone] PCP - General 07/12/21
--- OUTSIDE RECORDS SUMMARY | 2024-06-08 08:13 | XMS_ITS | Referral Summary ---
Author Organization [facility] [employer] Address [address] [place] [address] Care Team Providers Care Pilot Plant Research Technician Name Role Phone Karson Payne MD Primary Care Provider +1- [phone] Source Comments [facility],non-owned Affiliates and Associated Physician Practices is amultiple site organization consisting of ambulatory clinics and hospital sitesin [place], [place], [place] and [place]. This disclosure is being madepursuant to the Care Everywhere program and may not contain all information available regarding this patient. Last updated 18.[facility] [employer] Allergies No known active allergies Medications * [...] 04/11/2022 Assessment & Plan (04/17/2023 4:24 PM AUTO GLASS INSTALLER): Pap smear due 2024 Not yet due for mammogram. Family planning reviewed. She is currently using combined oral contraceptives for contraception and desires to use combined oral contraceptives in the future. She has not completed childbearing. STI screening declined at this appointment. RTC 1 year Assessment & Plan (04/11/2022 3:41 PM AUTO GLASS INSTALLER): Pap smear performed - with reflex HPV. [...] (07/21/2021): Added automatically from request for surgery [id number] Irritable bowel syndrome with diarrhea 9 Seizure [...] Comments Blood Pressure 124/80 04/17/2023 4:12 PM AUTO GLASS INSTALLER Pulse 116 04/11/2022 3:07 PM AUTO GLASS INSTALLER Temperature 36.5 ??C (97.7 ??F) 06/30/2016 2:30 PM CS T Respiratory Rate 18 06/30/2016 2:30 PM AUTO GLASS INSTALLER Oxygen Saturation 97% 04/11/2022 3:07 PM AUTO GLASS INSTALLER Inhaled Oxygen Concentration - - Weight 146.1 kg (322 lb) 04/17/2023 4:12 PM AUTO GLASS INSTALLER Height 180.3 cm (5' 11 ) 04/17/2023 4:12 PM AUTO GLASS INSTALLER Body Mass Index 44.91 04/17/2023 4:12 PM AUTO GLASS INSTALLER Plan of Treatment Not on file Procedures Procedure Name Priority Date/Time Associated Diagnosis Comments PAP IMAGE-GUIDED RFLX HPV Routine 04/11/2022 3:38 PM AUTO GLASS INSTALLER Well woman exam with routine gynecological exam from Last 3 Months or Most Recently Relevant to Health Maintenance Results * PAP IMAGE-GUIDED RFLX HPV (04/11/2022 3:38 PM AUTO GLASS INSTALLER) Case Report Gynecologic Cytology Report ? Case: [id number] ? Authorizing Provider: ??Alexus Díaz MD ?Collected: ? 04/11/2022 03:38 PM ? Ordering Location: ? [facility] ? Received: ?04/12/2022 12:15 PM ? Gynecology and Women's ? Health ? First Screen: ?Scott Coronel ? Specimen: ?THINPREP - IMAGE GUIDED, Cervix/Endocervix ? 04/13/2022 8:05 AM [facility] LMP 03/29/22 04/13/2022 8:05 AM [facility]O GLASS INST[facility] U PATHOLOGY LAB Menstrual Status Oral Contraceptives 04/13/2022 8:05 AM [facility] Specimen Adequacy Satisfactory for evaluation, endocervical/trans formation zone component present. 04/13/2022 8:05 AM [facility] PATHOLOGY LAB Categorization Negative for intraepithelial lesion or malignancy. 04/13/2022 8:05 AM [facility] Interpretation MERCHANDISING LEAD Negative for intraepithelial lesion or malignancy. 04/13/2022 8:05 AM [facility] Pap Footnote The Pap Smear is a screening test. False positive and false negative results occur. Negative results do not preclude abnormalities, thus clinical correlation is required. This specimen was evaluated by the ThinPrep Imaging System along with an additional manual rescreening by a crab butcher and/or pathologist. 04/13/2022 8:05 AM [facility] Pathology/Cytolo gy MISCELLANEOUS SAMPLES / Unknown 04/11/2022 3:38 PM AUTO GLASS INSTALLER 04/12/2022 12:15 PM AUTO GLASS INSTALLER Alexus Díaz MD LAB - PATHOLOGY/CY TOLOGY ORDERABLES [facility] PATHOLOGY LAB [address] [place] [address], [facility] [phone] from Last 3 Months or Most Recently Relevant to Health Maintenance Administered Medications Care Teams Pilot Plant Research Technician Relationship Specialty Start Date End Date Karson Payne MD [address] [phone] PCP - General 07/12/21
--- OUTSIDE RECORDS SUMMARY | 2024-06-08 08:14 | XMS_ITS | Encounter Summary ---
Author Organization [facility] Address [address] [place] [address]. [place], [place] [address] [place] [address] Care Team Providers Care Automotive Parts Interpreter Name Role Phone Charla Campos PA-C Primary Care Provider +1- [phone] Encounter Details Date Type Department Care Team [...] 08/21/2024 4:00 PM CDT Office Visit [facility] Family [facility] - [place] [address] [place] [address] Charla Campos PA-C [address] [place] [address] documented as of this encounter Visit Diagnoses Not on filedocumented in this encounter Additional Health Concerns Assessment Noted Time PHQ-9 Depression Total Score: 11 024 3:20 PM CDT documented as of this encounter Care Teams Automotive Parts Interpreter Relationship Specialty Start Date End Date Charla Campos PA-C [address] [place] [address] PCP - General PHYSICIAN PET SUPPLIES SALESPERSON 08/22/23 documented as of this encounter
--- OUTSIDE RECORDS SUMMARY | 2024-06-08 08:14 | XMS_ITS | Encounter Summary ---
Author Organization [facility] Address [address] [place] [address]. [place] [address] [place] [address] Care Team Providers Care Blocker And Polisher Name Role Phone Charla Campos PA-C Primary Care Provider +1- [phone] Encounter Details Date Type Department Care Team (Late st Contact Info) Description 10/18/2023 Orders Only [facility] Multispecialty Care - [address], [address] [place] [address] Abdulaziz Hanley PA-C [address] [facility] [address] [place] [address] Social History Tobacco Use Types Packs/Day Years [...] [facility] - [address] [address] Charla Campos PA-C [address] [place] [address] documented as of this encounter Visit Diagnoses Not on filedocumented in this encounter Additional Health Concerns Assessment Noted Time PHQ-9 Depression Total Score: 11 024 3:20 PM CDT documented as of this encounter Care Teams Blocker And Polisher Relationship Specialty Start Date End Date Charla Campos PA-C [address] [place] [address] PCP - General PHYSICIAN PAPER CUTTER OPERATOR 08/22/23 documented as of this encounter
--- OUTSIDE RECORDS SUMMARY | 2024-06-08 08:14 | XMS_ITS | Encounter Summary ---
Author Organization [facility] Address [address] [place] [address] Care Team Providers Care Graduate School Dean Name Role Phone Karson Payne MD Primary Care Provider Encounter Details Date Type Department Care Team (Late st Contact Info) Description 03/29/2023 Lab Requisition [facility] - DermPath Lab [address] [facility] [place] [phone] Luis Harris MD [address] [place] [address] Social History Tobacco Use Types [...] CDT) Case Report Dermatopathology Report ? Case: [id number] ? Authorizing Provider: ??Luis Harris MD ?Collected: ? 03/28/2023 12:00 AM ? Ordering Location: ? [facility] ? Received: ?03/29/2023 04:56 PM ? Pathologist: ? Kasie Shnie MD ? Specimen: ?Skin, right lateral ankle ? 3 5:09 PM [facility] DERMATOPATHOLOGY [facility]ORATORY Final Diagnosis Specimen A. SKIN, right lateral ankle: EPIDERMAL ACANTHOSIS WITH MIXED DERMAL INFLAMMATORY INFILTRATE (L92.3) (see microscopic description and comment) 3 5:09 PM [facility] DERMATOPATHOLOGY [facility]ORATORY Clinical History R/O Atypical 3 5:09 PM [facility]ERMATOPATH[facility]Y [facility] Gross Description Specimen A: Received is one formalin filled container labeled with the patient's name and designated right lateral ankle. The specimen consists of a shave biopsy measuring 7x6x2 mm. Jar 0. 3 5:09 PM [facility] DERMATOPATHOLOGY [facility]ORATORY Microscopic Description Specimen [...] concurs with the diagnosis. 3 5:09 PM [facility] DERMATOPATH[facility]Y [facility]ORATORY Disclaimer An external and internal positive and negative controls are appropriate for the histochemical, immunohistochemical and immunofluorescence stain(s) in this case (if any), except where stated explicitly. The performance characteristics of the stain(s) cited in this report were developed and its performance characteristic determined by the Dermatopathology Laboratory at [facility], directed by Dr. Ruddy Goodwin. These tests need not be, and therefore are not, approved by the [place] Food and Drug Administration. The tests are used for clinical purposes. Billing Codes Specimen Charges Stain Charges 63979 1 12558 97565 00254 1 1 1 3 5:09 PM [facility] DERMAT[facility]ATH[facility]Y [facility] Embedded Images 3 5:09 PM [facility]ER[facility] Pathology/Cytolog y TISSUE SPECIMEN FROM SKIN / Unknown 03/28/2023 03/29/2023 4:56 PM CDT Luis Harris MD LAB - PATHOLOGY/CYTO LOGY ORDERABLES DERMATOPATHOLOGY LABORATORY [facility] - Department of Dermatology [address], [address] [phone] documented in this encounter Visit Diagnoses Not on filedocumented in this encounter Care Teams Graduate School Dean Relationship Specialty Start Date End Date Karson Payne MD [address] [phone] PCP - General 07/12/21 documented as of this encounter
--- OUTSIDE RECORDS SUMMARY | 2024-06-08 08:14 | XMS_ITS | Encounter Summary ---
Author Organization [facility] Address [address] [facility] [place] [address] Care Team Providers Care Market Reporter Name Role Phone Leta Villanueva MD Primary Care Provider Unavailabl e Reason for Visit * Reason Comments Imm Inj tb screening Encounter Details Date Type Department Care Team (Late st Contact Info) Description 02/29/2016 11:15 AM CDT Office [facility] [address] [phone] Screening examination for pulmonary tuberculosis (Primary Dx) Social History Tobacco Use Types Packs/Day Years Used Date Smoking Tobacco: Never Sex and Gender Information Value Date Recorded Sex Assigned at Not on file Gender Identity Not on file Sexual Orientation Not on file documented as of this encounter Patient Instructions * Patient Instructions* Lou Graham APRN-CARGO SURVEYOR - 02/29/2016 3:33 PM CDT Tuberculin Skin Test YOUTH CARE WORKER: A tuberculin skin test is done to [...] have been exposed too recently. ?? 2016 [employer]. Information is for End User's use only and may not be sold, redistributed or otherwise used for commercial purposes. All illustrations and images included in CareNotes?? are the copyrighted property of [employer]. or [employer]. The above information is an cable braider only. It is not intended as medical [...] earm documented in this encounter Care Teams Market Reporter Relationship Specialty Start Date End Date Leta Villanueva MD PCP - General 02/29/16 07/11/21 documented as of this encounter
--- OUTSIDE RECORDS SUMMARY | 2024-06-08 08:14 | XMS_ITS | Encounter Summary ---
Author Organization [facility] Address [address] [place] [address]. [place] [address] [place] [address] Care Team Providers Care Direct Support Specialist Name Role Phone Charla Campos PA-C Primary Care Provider +1- [phone] Reason for Visit * Reason Onset Date Comments Appointment Request 12/26/2023 Encounter Details Date Type Department Care Team (Late st Contact Info) Description 12/26/[address] [facility] Multispecialty Care - [facility] [address], [address] [place] [address] Maria T Serrano NP [address] [facility] [address] [place] [address] Appointment Request Social History Tobacco Use Types [...] leave voice mail (pt can come to [facility] office 01/11 same time or reschedule) provider will not be in office 01/11 documented in this encounter Plan of Treatment Upcoming Encounters Date Type Department Care Team (Late st Contact Info) Description 08/21/2024 4:00 PM CDT Office Visit [facility] Family Medicine - [place] [address] [place] [phone] Charla Campos PA-C [address] [place] [address] documented as of this encounter Visit Diagnoses Not on filedocumented in this encounter Additional Health Concerns Assessment Noted Time PHQ-9 Depression Total Score: 11 024 3:20 PM CDT documented as of this encounter Care Teams Direct Support Specialist Relationship Specialty Start Date End Date Charla Campos PA-C [address] [place] [address] PCP - General PHYSICIAN PODIATRY ASSISTANT 08/22/23 documented as of this encounter
--- OUTSIDE RECORDS SUMMARY | 2024-06-08 08:14 | XMS_ITS | Encounter Summary ---
Author Organization [facility] Address [address] [place] [address]. [place] [address] [place] [address] Care Team Providers Care Occupational Medicine Specialist Name Role Phone Charla Campos PA-C Primary Care Provider +1- [phone] Encounter Details Date Type Department Care Team (Late st Contact Info) Description 10/26/2023 Orders Only [facility] Multispecialty Care - [facility] [address] [facility], [address] [place] [address] Maria T Serrano NP 3 [facility] [address] [place] [address] Social History Tobacco Use Types Packs/Day Years [...] Description 08/21/2024 4:00 PM CDT Office Visit [facility] Family Medicine - [address] [address] Charla Campos PA-C [address] [place] [address] documented as of this encounter Visit Diagnoses Not on filedocumented in this encounter Additional Health Concerns Assessment Noted Time PHQ-9 Depression Total Score: 11 024 3:20 PM CDT documented as of this encounter Care Teams Occupational Medicine Specialist Relationship Specialty Start Date End Date Charla Campos PA-C [address] [place] [address] PCP - General PHYSICIAN DOUPER 08/22/23 documented as of this encounter
--- OUTSIDE RECORDS SUMMARY | 2024-06-08 08:14 | XMS_ITS | Encounter Summary ---
Author Organization [facility] Address [address] [place] [address]. [place] [address] [place] [address] Care Team Providers Care Case Manager Name Role Phone Charla Campos PA-C Primary Care Provider +1- [phone] Encounter Details Date Type Department Care Team (Late st Contact Info) Description 01/12/2024 Orders Only [facility] Multispecialty Care - [facility] [address] [facility], [address] [place] [address] Omar Johns MD 3 [facility] [address] [place], [place] [address] Social History Tobacco Use Types Packs/Day Years [...] Description 08/21/2024 4:00 PM CDT Office Visit [facility] Family Medicine - [address] [address] Charla Campos PA-C [address] [place] [address] documented as of this encounter Visit Diagnoses Diagnosis Ulcerative pancolitis without complication ([facility])- Primary Diarrhea, unspecified type Constipation, unspecified constipation type documented in this encounter Additional Health Concerns Assessment Noted Time PHQ-9 Depression Total Score: 11 024 3:20 PM CDT documented as of this encounter Care Teams Case Manager Relationship Specialty Start Date End Date Charla Campos PA-C [address] [place] [address] PCP - General PHYSICIAN TURRET LATHE TENDER 08/22/23 documented as of this encounter
--- OUTSIDE RECORDS SUMMARY | 2024-06-08 08:14 | XMS_ITS | Encounter Summary ---
Author Organization [facility] Address [address] [place] [address]. [place] [address] [place] [address] Care Team Providers Care Mother Baby Rn Name Role Phone Charla Campos PA-C Primary Care Provider +1- [phone] Encounter Details Date Type Department Care Team (Latest Contact Info) Description 01/20/2024 11:56 AM CDT - 01/20/2024 11:59 PM T Hospital Encounter [facility] [address] [place] [address] Maria T Serrano NP 3 [facility] [address] [place], [place] [address] Discharge Disposition: Home or Self Care (Routine [...] [facility] Family Medicine - [place] [address] [place] [address] Charla Campos PA-C 100 [place] [address] documented as of this encounter Procedures Procedure Name Priority Date/Time Associated Diagnosis Comments CALPROTECTIN FECAL Routine 01/20/2024 10 :30 AM CDT Ulcerative pancolitis without complication ([facility]) documented in this encounter Results * CALPROTECTIN FECAL (01/20/2024 10:30 AM CDT) CALPROTECTIN (STOOL) 5 mcg/g 01/28/2024 9:26 PM CDT [facility] GELLER Comment: ? Reference Range: ? [...] suggested for borderline values. Test performed by [employer] ? [address], ? [place] [address] ? Gun Stocker: Elyse Canela MD,PHD,SANDRA Test Reported by [facility], [employer] [facility], [address] [place] [address] Jos éAntonio Mart M.D., Ph.D., Director of Laboratories , [facility] [id number] STOOL SPECIMEN / Unknown 01/20/2024 10:30 AM CDT Maria T Serrano [employer] [facility] [employer] Final Result [address] , [place] [phone] documented in this encounter Visit Diagnoses Diagnosis Ulcerative pancolitis without complication (CMS/HCC HHS/HCC) documented in this encounter Additional Health Concerns Assessment Noted Time PHQ-9 Depression Total Score: 11 024 3:20 PM CDT documented as of this encounter Care Teams Mother Baby Rn Relationship Specialty Start Date End Date Charla Campos PA-C [address] [place] [address] PCP - General PHYSICIAN CONTRACT CLERK AUTOMOBILE 08/22/23 documented as of this encounter
--- OUTSIDE RECORDS SUMMARY | 2024-06-08 08:14 | XMS_ITS | Encounter Summary ---
Author Organization [facility] Address [address] [facility] [place] [address] Care Team Providers Care Vegetable Tier Name Role Phone Leta Villanueva MD Primary Care Provider Unavailabl e Reason for Visit * Reason Onset Date Comments Follow-up 07/02/2016 Encounter Details Date Type Department Care Team (Late st Contact Info) Description 07/02/2016 Telephone [facility] [employer] [facility] AT [address] [address] Wanda Helton APRN-TREE DOCTOR 2 [place] [address] Follow-up Social History Tobacco Use [...] filedocumented in this encounter Care Teams Vegetable Tier Relationship Specialty Start Date End Date Leta Villanueva MD PCP - General 02/29/16 07/11/21 documented as of this encounter
--- OUTSIDE RECORDS SUMMARY | 2024-06-08 08:14 | XMS_ITS | Encounter Summary ---
Author Organization [facility] Address [address] [place] [address]. [place] [address] [place] [address] Care Team Providers Care Supply Chain Intern Name Role Phone Charla Campos PA-C Primary Care Provider +1- [phone] Reason for Visit * Reason Onset Date Comments Surgery 03/15/2024 Encounter Details Date Type Department Care Team (Late st Contact Info) Description 03/15/2024 Telephone [facility] [address] [place] [address] Omar Johns MD [address] [place] [address] Surgery Social History Tobacco Use Types [...] Description 08/21/2024 4:00 PM CDT Office Visit [facility] Family Medicine - [place] [address] Charla Campos PA-C [address] [place] [address] documented as of this encounter Visit Diagnoses Not on filedocumented in this encounter Additional Health Concerns Assessment Noted Time PHQ-9 Depression Total Score: 11 024 3:20 PM CDT documented as of this encounter Care Teams Supply Chain Intern Relationship Specialty Start Date End Date Charla Campos PA-C [address] [place] [address] PCP - General PHYSICIAN LIBRARY CLERK 08/22/23 documented as of this encounter
--- OUTSIDE RECORDS SUMMARY | 2024-06-08 08:14 | XMS_ITS | Encounter Summary ---
Author Organization [facility] Address [address] [facility] [place] [address] Care Team Providers Care Commodity Buyer Name Role Phone Karson Payne MD Primary Care Provider +1- [phone] Encounter Details Date Type Department Care Team (Late st Contact Info) Description 10/15/2021 Orders Only [facility] Obstetrics Gynecology and Women's Health [address] [facility] [address] [place] [address] Tala Ortiz Breakthrough bleeding on control pills [...] Metrorrhagia documented in this encounter Care Teams Commodity Buyer Relationship Specialty Start Date End Date Karson Payne MD [address] [address] PCP - General 07/12/21 documented as of this encounter
--- OUTSIDE RECORDS SUMMARY | 2024-06-08 08:14 | XMS_ITS | Encounter Summary ---
Author Organization [facility] Address [address] [place] [address] Care Team Providers Care Pharmacy Buyer Name Role Phone Karson Payne MD Primary Care Provider [phone] Encounter Details Date Type Department Care Team (Late st Contact Info) Description 03/29/2023 Lab Requisition [facility] - DermPath Lab [address] [facility], [place] [address] Luis Harris MD [address] [place] [address] Social History Tobacco Use Types [...] Case Report Dermatopathol ogy Report ? Case: [id number] ? Authorizing Provider: ??Luis Harris MD ?Collected: [...] Gross Description Specimen A: Received is one [employer] media filled container labeled with the patient's [...] determined by the Dermatopathol ogy Laboratory at [facility], directed by Dr. Ruddy Goodwin. These tests need not be, and therefore are not, approved by the [place] Food and Drug Administratio n. The tests are used for clinical purposes. Billing Codes Specimen Charges Stain Charges 95798 29928 34072 56792 78204 12147 1 1 1 1 1 1 3 2:38 PM CDT DERMATOPATHOLOGY LABORATORY Embedded Images 3 2:38 PM CDT DERMATOPATHOLOGY LABORATORY Pathology/Cytolog y TISSUE SPECIMEN FROM SKIN / Unknown 03/28/2023 03/29/2023 4:58 PM CDT Luis Harris MD LAB - PATHOLOGY/CYTO LOGY ORDERABLES DERMATOPATHOLOGY LABORATORY [facility] - Department of Dermatology [facility] Medicine [address] [place] [address], [address] [phone] documented in this encounter Visit Diagnoses Not on filedocumented in this encounter Care Teams Pharmacy Buyer Relationship Specialty Start Date End Date Karson Payne MD [address] [address] PCP - General 07/12/21 documented as of this encounter
--- OUTSIDE RECORDS SUMMARY | 2024-06-08 08:14 | XMS_ITS | Encounter Summary ---
Author Organization [facility] Address [address] [place] [address]. [place] [address] [place] [address] Care Team Providers Care Bartenders Name Role Phone Charla Campos PA-C Primary Care Provider +1- [phone] Reason for Visit * Reason Onset Date Comments Prior Authorization 03/07/2024 Colonoscopy- [id number] Encounter Details Date Type Department Care Team (Late st Contact Info) Description 03/07/2024 Telephone [facility] Multispecialty Care - [facility] [address] [facility] [address] [place] [address] Omar Johns MD 3 [facility] Dean [address] [place] [address] Prior Authorization (Colonoscopy-[id number]) Social History Tobacco Use Types Packs/Day Years [...] OMAR JOHNS Contact: Karla Petty Physician Address: [address] [place] [address] Patient Name: PAIGE Petty CELESTINE Insurance Carrier: [facility] Site Name: [facility] Site ID: [id number] Site Address: [address] [place] [id number] Primary Diagnosis Code: K51.00 Description: Ulcerative (chronic) pancolitis without complications Secondary Diagnosis Code: Description: CPT Code GECOL Description: Colonoscopy Authorization Number: [id number] Review Date: 03/07/2024 11:41:23 AM Expiration Date: 09/03/2024 Status: Your case has been Approved. documented in this encounter Plan of Treatment Upcoming Encounters Date Type Department Care Team (Late st Contact Info) Description 08/21/2024 4:00 PM CDT Office Visit [facility] Family Medicine - [place] [phone] Charla Campos PA-C [address] [place] [address] documented as of this encounter Visit Diagnoses Not on filedocumented in this encounter Additional Health Concerns Assessment Noted Time PHQ-9 Depression Total Score: 11 024 3:20 PM CDT documented as of this encounter Care Teams Bartenders Relationship Specialty Start Date End Date Charla Campos PA-C [address] [place] [address] PCP - General PHYSICIAN DIRECTOR OF MANUFACTURING 08/22/23 documented as of this encounter
--- OUTSIDE RECORDS SUMMARY | 2024-06-08 08:14 | XMS_ITS | Encounter Summary ---
Author Organization [facility] Address [address] [place] [address] Care Team Providers Care Branch Employment Coordinator Name Role Phone Karson Payne MD Primary Care Provider [phone] Reason for Visit * Reason Onset Date Comments Nurse Only 09/24/2021 Encounter Details Date Type Department Care Team (Late st Contact Info) Description 09/24/2021 Telephone [facility] - [facility]IP[facility] [address] [address] Raysa Asehr, CLARE-SERVICES ACCOUNT MANAGER [address] [place] [address] Nurse Only Social History Tobacco Use [...] on filedocumented in this encounter Care Teams Branch Employment Coordinator Relationship Specialty Start Date End Date Karson Payne MD [address] [phone] PCP - General 07/12/21 documented as of this encounter
--- OUTSIDE RECORDS SUMMARY | 2024-06-08 08:14 | XMS_ITS | Encounter Summary ---
Author Organization [facility] Address [address] [place] [address]. [place], [place] [address] [place] [address] Care Team Providers Care Cable Assembler Name Role Phone Charla Campos PA-C Primary Care Provider +1- [phone] Encounter Details Date Type Department Care Team [...] [facility] Family Medicine - [place] [address] [place] [address] Charla Campos PA-C [address] [place] [address] documented as of this encounter Visit Diagnoses Not on filedocumented in this encounter Additional Health Concerns Assessment Noted Time PHQ-9 Depression Total Score: 11 024 3:20 PM CDT documented as of this encounter Care Teams Cable Assembler Relationship Specialty Start Date End Date Charla Campos PA-C [address] [place] [address] PCP - General PHYSICIAN CREDIT COORDINATOR 08/22/23 documented as of this encounter
--- OUTSIDE RECORDS SUMMARY | 2024-06-08 08:14 | XMS_ITS | Encounter Summary ---
Author Organization [facility] Address [address] [place] [address]. [place] [address] [place] [address] Care Team Providers Care Grommet Man Name Role Phone Charla Campos PA-C Primary Care Provider +1- [phone] Encounter Details Date Type Department Care Team (Late st Contact Info) Description 02/19/2024 Orders Only [facility] Multispecialty Care - [facility] 3 [facility], [address] [place] [address] Anita Reyna MA Social History Tobacco Use [...] [facility] Family Medicine [place] [address] Charla Campos PA-C [address] [place] [address] documented as of this encounter Visit Diagnoses Diagnosis Ulcerative pancolitis without complication ([facility]) documented in this encounter Additional Health Concerns Assessment Noted Time PHQ-9 Depression Total Score: 11 024 3:20 PM CDT documented as of this encounter Care Teams Grommet Man Relationship Specialty Start Date End Date Charla Campos PA-C [address] [place] [address] PCP - General PHYSICIAN STATISTICIAN THEORETICAL 08/22/23 documented as of this encounter
--- OUTSIDE RECORDS SUMMARY | 2024-06-08 08:14 | XMS_ITS | Encounter Summary ---
Author Organization [facility] Address [address] [place] [address]. [place] [address] [place] [address] Care Team Providers Care Wood Repatcher Name Role Phone Charla Campos PA-C Primary Care Provider +1- [phone] Reason for Visit * Reason Onset Date Comments FYI 10/10/2023 Encounter Details Date Type Department Care Team (Late st Contact Info) Description 10/10/2023 Telephone [facility] Family Medicine - [place] 100 [place] [address] Charla Campos PA-C 100 [place] [address] FYI (/) Social History Tobacco [...] [facility] - [place] [address] [place] [phone] Charla Campos PA-C 100 [place] [address] documented as of this encounter Visit Diagnoses Not on filedocumented in this encounter Additional Health Concerns Assessment Noted Time PHQ-9 Depression Total Score: 11 024 3:20 PM CDT documented as of this encounter Care Teams Wood Repatcher Relationship Specialty Start Date End Date Charla Campos PA-C [address] [place] [address]. [place] [address] PCP - General PHYSICIAN DB2 DBA 08/22/23 documented as of this encounter
--- OUTSIDE RECORDS SUMMARY | 2024-06-08 08:14 | XMS_ITS | Encounter Summary ---
Author Organization [facility] Address [address] [place] [address] Care Team Providers Care Special Effects Technician Name Role Phone Karson Payne MD Primary Care Provider Reason for Visit * Reason Comments Well Women Exam Encounter Details Date Type Department Care Team (Late st Contact Info) Description 04/11/2022 3:00 PM RESIDENTIAL CAREGIVER Office Visit [facility] Gynecology and Women's Health [address] [place] [address] Alexus Díaz MD [address] [address] Well woman exam with routine gynecological exam [...] Comments Blood Pressure 124/74 04/11/2022 3:07 PM RESIDENTIAL CAREGIVER Pulse 116 04/11/2022 3:07 PM RESIDENTIAL CAREGIVER Temperature - - Respiratory Rate - - Oxygen Saturation 97% 04/11/2022 3:07 PM RESIDENTIAL CAREGIVER Inhaled Oxygen Concentration - - Weight 141.5 kg (312 lb) 04/11/2022 3:07 PM RESIDENTIAL CAREGIVER Height 180.3 cm (5' 11 ) 04/11/2022 3:07 PM RESIDENTIAL CAREGIVER Body Mass Index 43.52 04/11/2022 3:07 PM RESIDENTIAL CAREGIVER documented in this encounter Progress Notes * Alexus Díaz MD - 04/11/2022 3:38 PM CST General event crew technician Patient Progress Note History of Present Illness: [...] visit in 1 year Alexus Díaz MD DENTIAL CAREGIVER documented in this encounter Plan of Treatment Not on file documented as of this encounter Procedures Procedure Name Priority Date/Time Associated Diagnosis Comments PAP IMAGE-GUIDED RFLX HPV Routine 04/11/2022 3:38 PM RESIDENTIAL CAREGIVER Well woman exam with routine gynecological exam WET PREP - POINT OF CARE (AMB) [facility] Routine 04/11/2022 Well woman exam with routine gynecological exam documented in this encounter Results * PAP IMAGE-GUIDED RFLX HPV (04/11/2022 3:38 PM RESIDENTIAL CAREGIVER) Case Report Gynecologic Cytology Report ? Case: [id number] ? Authorizing Provider: ??Alexus Díaz MD ?Collected: ? 04/11/2022 03:38 PM ? Ordering Location: ? [facility] ? Received: ?04/12/2022 12:15 PM ? Gynecology and Women's ? Health ? First Screen: ?Scott Coronel ? Specimen: ?THINPREP - IMAGE GUIDED, Cervix/Endocervix ? 04/13/2022 8:05 AM RESIDENTIAL CAREGIVER [facility] LMP 03/29/22 04/13/2022 8:05 AM [facility] Menstrual Status Oral Contraceptives 04/13/2022 8:05 AM [facility] Specimen Adequacy Satisfactory for evaluation, endocervical/trans formation zone component present. 04/13/2022 8:05 AM [facility] Categorization Negative for intraepithelial lesion or malignancy. 04/13/2022 8:05 AM [facility] Interpretation CURING PRESS OPERATOR Negative for intraepithelial lesion or malignancy. 04/13/2022 8:05 AM [facility] Pap Footnote The Pap Smear is a screening test. False positive and false negative results occur. Negative results do not preclude abnormalities, thus clinical correlation is required. This specimen was evaluated by the [employer] [facility] along with an additional manual rescreening by a flat folding machine operator and/or pathologist. 04/13/2022 8:05 AM [facility] Pathology/Cytolo gy MISCELLANEOUS SAMPLES / Unknown 04/11/2022 3:38 PM RESIDENTIAL CAREGIVER 04/12/2022 12:15 PM RESIDENTIAL CAREGIVER Alexus Díaz MD LAB - PATHOLOGY/CY TOLOGY ORDERABLES Performing Organization Address City/State/RUST Co de Phone Number [facility] [address] [phone] * WET PREP - POINT OF CARE (AMB) [facility] (04/11/2022) pH Wet Prep 4.5 Yeast [...] Alexus Díaz MD - 04/11/2022 3:40 PM RESIDENTIAL CAREGIVER Associated Problem(s): Well woman exam with routine [...] of cancer have been in her family. DENTIAL CAREGIVER documented in this encounter Care Teams Special Effects Technician Relationship Specialty Start Date End Date Karson Payne MD [address] [address] PCP - General 07/12/21 documented as of this encounter
--- OUTSIDE RECORDS SUMMARY | 2024-06-08 08:14 | XMS_ITS | Encounter Summary ---
Author Organization [facility] Address [address] [place] [address]. [place], [place] [address] [place] [address] Care Team Providers Care Clam Shovel Operator Name Role Phone Charla Campos PA-C Primary Care Provider +1- [phone] Encounter Details Date Type Department Care Team [...] [facility] Family Medicine - [place] [address] [place] [address] Charla Campos PA-C [address] [place] [address] documented as of this encounter Visit Diagnoses Not on filedocumented in this encounter Additional Health Concerns Assessment Noted Time PHQ-9 Depression Total Score: 11 024 3:20 PM CDT documented as of this encounter Care Teams Clam Shovel Operator Relationship Specialty Start Date End Date Charla Campos PA-C [address] [place] [address] PCP - General PHYSICIAN SPORTS TEAM MANAGER 08/22/23 documented as of this encounter
--- OUTSIDE RECORDS SUMMARY | 2024-06-08 08:14 | XMS_ITS | Clinical Summary ---
Author Organization [facility] Address [address] [place] [address]. [place] [address] [place] [address] Care Team Providers Care Distillery Worker Name Role Phone Charla Campos PA-C Primary Care Provider +1- [phone] Allergies No known active allergies Medications inFLIXimab-dyyb [...] 50 MG tabletIndication s:Ulcerative pancolitis without complication ([facility]) TAKE ONE (1) TABLET BY MOUTH EVERY [...] Cellulitis, unspecified cellulitis site 01/03/20 Morbid obesity ([facility]) 05/17/2022 Chronic rhinitis 12/28/2020 Ulcerative colitis ([facility]) 07/24/2020 Overview (07/24/2020): Added automatically from request for surgery [id number] Ulcerative pancolitis withou t complication ([facility]) 07/24/2020 Overview (07/24/2020): Added automatically from request for surgery [id number] Irritable bowel syndrome with diarrhea 9 Resolved Problems Problem Noted Date Diagnosed Date Resolved Date Acute upper respiratory infection 04/05/2021 08/22/2023 Seizure disorder ([facility]) 05/06/2019 08/22/2023 Routine general medical exam ination at a health care facility 05/06/2019 05/23/2022 Generalized abdominal pain 05/06/2019 0 08/22/2023 Encounters Date Type Department Care Team Description 05/28/2024 MyChart Message Enc [facility] Family Medicine - [place] [address] [place] [address] Charla Campos PA-C control- refill needed 05/24/2024 Scan [facility] SRVCS Scanned, Doc Med Group 03/26/2024 Scan [facility] HE[facility] INFO SRVCS Scanned, Doc Med Group 03/15/2024 Telephone [facility] [address] [place] [address] Omar Johns MD Surgery 03/11/2024 Orders Only [facility] Multispecialty Care - [facility] [address] [facility] [place] [address] Anita Reyna MA from Last [...] [facility] Family [facility] - [address] [phone] Charla Campos PA-C [address] [place] [address] Health Maintenance Due Date Last Done Comments [...] disease) HEPATITIS PANEL,ACUTE Routine 06/28/2019 12:54 PM PRESCHOOL TEACHER AIDE Acute ulcerative colitis with complication (CMS/HCC HHS/HCC) from Last 3 Months or Most Recently Relevant to Health Maintenance Results * (ABNORMAL) THINPREP IMAGING SYSTEM PAP (12/28/2020 4:10 PM CDT) THIN PREP PAP SEE RESULTS BELOW(A) [facility] Comment: CASE REPORT: CYTOLOGY GYNECOLOGICAL REPORT ? CASE: [id number] ? AUTHORIZING PROVIDER: ??MONIK FONSECA MD ? [...] NOTE: THIS SPECIMEN WAS REVIEWED BY A PICCOLO MECHANIC AND/OR PATHOLOGIST ( INDICATED IN THIS REPORT) AFTER EVALUATION USING THE [employer] IMAGING SYSTEM. CLINICAL INFORMATION: MENSTRUAL STATUS: ? LMP (IF APPLICABLE): ? CLINICAL HISTORY/PREVIOUS PAP: ? TYPE OF NEOPLASIA (IF APPLICABLE): ? SIGNIFICANT CLINICAL FINDINGS: ? OTHER HISTORY: ? HORMONES (IF APPLICABLE): ? SUGGESTED FOLLOW-UP: FOLLOW UP WARRANTED, BASED ON CURRENT GUIDELINES AND INDIVIDUAL PATIENT CONSIDERATIONS. 12/28/2020 4:10 PM CDT 12/29/2020 7:16 AM CDT Narrative [facility] - 12/30/2020 4:44 PM CDT SCREENING OR FOLLOW-UP OF ABNORMAL RESULTS?->SCREENING GYNE SOURCE:->CERVIX RELEASE TO PATIENT->SYSTEM RELEASE us Monik Fonseca MD PATHOLOGY/CYTOLOGY ORDERABL ES [email or web address] [address], * HEPATITIS PANEL,ACUTE (06/28/2019 12:54 PM PRESCHOOL TEACHER AIDE) HEPATITIS B SURFACE AG NON-REACTI VE NON-REACTI VE 06/28/2019 11:[address] [facility] HEP B CORE IGM NON-REACTI VE NON-REACTI VE 06/28/2019 11:43 [address] TEACHER A[address] [facility] HAV IGM NON-REACTI VE NON-REACTI VE 06/28/2019 11:43 PM [address] TEACHER AIDE [facility] HEPATITIS C AB NON-REACTI VE NON-REACTI VE 06/28/2019 11:43 [address] TEACHER A[address] [facility] 06/28/2019 12:5 4 PM PRESCHOOL TEACHER AIDE us Omar Johns MD LABORATORY Final Result [facility] [address] [place] [address], from Last 3 Months or Most Recently Relevant to Health Maintenance Insurance [facility] Care Teams Distillery Worker Relationship Specialty Start Date End Date Charla Campos PA-C [address] [place] [address] PCP - General PHYSICIAN CREDIT HISTORIAN 08/22/23
--- OUTSIDE RECORDS SUMMARY | 2024-06-08 08:14 | XMS_ITS | Encounter Summary ---
Author Organization [facility] Address [address] [place] [address]. [place] [address] [place] [address] Care Team Providers Care Telegraph Operator Name Role Phone Charla Campos PA-C Primary Care Provider +1- [phone] Encounter Details Date Type Department Care Team (Late st Contact Info) Description 05/28/2024 [employer] Message Enc [facility] Family Medicine - [place] [address] [place] [address] Charla Campos PA-C [address] [place], [place] [phone] control- refill needed Social History Tobacco Use [...] AM CST RX Pended for physician approval ISH LANGUAGE LEARNER TUTOR documented in this encounter Plan of Treatment Upcoming Encounters Date Type Department Care Team (Late st Contact Info) Description 08/21/2024 4:00 PM CDT Office Visit [facility] Family Medicine - [address] [address] Charla Campos PA-C [address] [place] [address] documented as of this encounter Visit Diagnoses Diagnosis Constipation, unspecified constipation type- Primary Ulcerative pancolitis without complication ([facility]) Uses oral contraception Surveillance of previously prescribed contraceptive pill documented in this encounter Additional Health Concerns Assessment Noted Time PHQ-9 Depression Total Score: 11 024 3:20 PM CDT documented as of this encounter Care Teams Telegraph Operator Relationship Specialty Start Date End Date Charla Campos PA-C [address] [place] [phone] PCP - General PHYSICIAN SANDWICH HAND 08/22/23 documented as of this encounter
--- OUTSIDE RECORDS SUMMARY | 2024-06-08 08:14 | XMS_ITS | Encounter Summary ---
Author Organization [facility] Address [address] [place] [address] Care Team Providers Care Science Technicians Name Role Phone Karson Payne MD Primary Care Provider Reason for Visit * Reason Comments Refill Request Encounter Details Date Type Department Care Team (Late st Contact Info) Description 01/04/2022 Refill [facility] [address] [facility] [address] [place] [address] Raysa Asher, SANITATION SUPERINTENDENT-ENGLISH AS A SECOND LANGUAGE INSTRUCTOR [address] [facility] [address] [place] [address] Refill Request Social History Tobacco [...] for acute problem visit Has upcoming annual oil and gas field technician I ordered her ocp she had previously [...] Metrorrhagia documented in this encounter Care Teams Science Technicians Relationship Specialty Start Date End Date Karson Payne MD [address] [address] PCP - General 07/12/21 documented as of this encounter
--- OUTSIDE RECORDS SUMMARY | 2024-06-08 08:14 | XMS_ITS | Encounter Summary ---
Author Organization [facility] Address [address] [place] [address]. [place] [address] [place] [address] Care Team Providers Care Station Chief Name Role Phone Charla Campos PA-C Primary Care Provider +1- [phone] Encounter Details Date Type Department Care Team (Late st Contact Info) Description 03/11/2024 Orders Only [facility] Multispecialty Care - [facility] [address] [facility], [address] [place] [phone] Anita Reyna MA Social History Tobacco Use [...] [facility] Family Medicine - [place] [address] Charla Campos PA-C [address] [place] [address] documented as of this encounter Visit Diagnoses Diagnosis Ulcerative pancolitis without complication ([facility]) Diarrhea, unspecified type documented in this encounter Additional Health Concerns Assessment Noted Time PHQ-9 Depression Total Score: 11 024 3:20 PM CDT documented as of this encounter Care Teams Station Chief Relationship Specialty Start Date End Date Charla Campos PA-C [address] [place] [address] PCP - General PHYSICIAN VOLTAGE INSPECTOR 08/22/23 documented as of this encounter
--- OUTSIDE RECORDS SUMMARY | 2024-06-08 08:14 | XMS_ITS | Encounter Summary ---
Author Organization [facility] Address [address] [place] [address]. [place] [address] [place] [address] Care Team Providers Care Balloon Design Printer Name Role Phone Charla Campos PA-C Primary Care Provider +1- [phone] Encounter Details Date Type Department Care Team (Late st Contact Info) Description 12/26/2023 Tysdo Message Enc [facility] Multispecialty Care - [address], [address] [place] [address] [facility], [facility] Provider Appointment Social History Tobacco Use [...] [facility] Family [facility] - [address] [address] Charla Campos PA-C [address] [place] [address] documented as of this encounter Visit Diagnoses Not on filedocumented in this encounter Additional Health Concerns Assessment Noted Time PHQ-9 Depression Total Score: 11 024 3:20 PM CDT documented as of this encounter Care Teams Balloon Design Printer Relationship Specialty Start Date End Date Charla Campos PA-C [address] [place] [address] PCP - General PHYSICIAN MODELING DIRECTOR 08/22/23 documented as of this encounter
--- OUTSIDE RECORDS SUMMARY | 2024-06-08 08:14 | XMS_ITS | Encounter Summary ---
Author Organization [facility] Address [address] [facility] [place] [address] Care Team Providers Care Lean Consultant Name Role Phone Karson Payne MD Primary Care Provider Reason for Visit * Reason Comments Vulvar Irritation BV Encounter Details Date Type Department Care Team (Late st Contact Info) Description 07/21/2021 1:00 PM REFRIGERATION UNIT REPAIRER Office Visit [facility] [address] [place], [place] [phone] Raysa Asher, PHYSICAL EDUCATION INSTRUCTOR-METER MECHANIC [address] [address] Chronic vulvitis (Primary Dx); Vaginal [...] Comments Blood Pressure 136/82 07/21/2021 12:59 PM REFRIGERATION UNIT REPAIRER Pulse - - Temperature - - Respiratory Rate - - Oxygen Saturation - - Inhaled Oxygen Concentration - - Weight 125.6 kg (277 lb) 07/21/2021 12:59 PM REFRIGERATION UNIT REPAIRER Height 180.3 cm (5' 11 ) 07/21/2021 12:59 PM REFRIGERATION UNIT REPAIRER Body Mass Index 38.63 07/21/2021 12:59 PM REFRIGERATION UNIT REPAIRER documented in this encounter Patient Instructions * Patient Instructions* Raysa Asher APRN-CNP - 07/21/2021 12:51 PM REFRIGERATION UNIT REPAIRER Follow the Vulvar skin care guidelines: Gain free & clear Use dryer balls Dove sensitive skin bar soap. For you & your man. Keep The water lukewarm. Cotton is better for underwear Sleep without underpants, Mens boxer short is ok to sleep Keep a [place] style Pants or shorts Mainly cotton. Sitz baths: Use your bath tub if it is clean and rinsed thoroughly. Adjust the amount of baking soda depending on the size of the tub and depth of the water. Use lukewarm to cool water and baking soda & sit for 5 minutes. 1/4 cup Look at [facility] or [facility] for a bath tub drain plug. [...] bidet attachment for your toilet. Simple Spa: https://www.Buddy.Polar Rose/ggdluuzcs-ugdeugwa-uswg-nozzle-bidet/ Luxe: https://Thomas-Krenn.Polar Rose/ Both are is a very affordable brands that can be bought on [employer] or on their websites Avoid the ukltra strong or soft Take the fluconazole 200 mg tablet, one by mouth every other day for three doses. e size of the tub and depth of the water. Use lukewarm to cool water and baking soda & sit for 5 minutes. 1/4 cup IGERATION UNIT REPAIRER documented in this encounter Progress Notes * Raysa Asher APRN-METER MECHANIC - 07/21/2021 1:00 PM CST Images from [...] OCP:'s Change to Sprintec needs to see import clerk for follow up & to establish care [...] ? referring and communicating with other health early breastfeeding care specialist via faxed communication ? documenting clinical information in the electronic health record ? independently interpreting results and communicating results to the patient/family/caregiver as needed ? care coordination as needed Total time 60 minutes New: 30 min (54830) 45 min (69537) 60 min (82106) Established 20 min (27478) 30 min (37720) 40 min (32795) IGERATION UNIT REPAIRER documented in this encounter Plan of Treatment Not on file documented as of this encounter Visit Diagnoses Diagnosis Chronic vulvitis- Primary Vaginitis and vulvovaginitis, unspecified Vaginal discharge Leukorrhea, not specified as infective Dyspareunia in female Breakthrough bleeding on control pills Metrorrhagia documented in this encounter Care Teams Lean Consultant Relationship Specialty Start Date End Date Karson Payne MD [address] [address] PCP - General 07/12/21 documented as of this encounter
--- OUTSIDE RECORDS SUMMARY | 2024-06-08 08:14 | XMS_ITS | Encounter Summary ---
Author Organization [facility] Address [address] [place] [address] Care Team Providers Care Cotton Program Technician Name Role Phone Karson Payne MD Primary Care Provider Reason for Visit * Reason Comments Vaginal Bleeding Test of cure Encounter Details Date Type Department Care Team (Late st Contact Info) Description 10/29/2021 2:30 PM CDT Office Visit [facility] Gynecology and Women's Health [address] [place], [place] [phone] Kelsie Mitchell MD [address] [place], [place] [phone] Irregular menstrual bleeding (Primary Dx); Screen for [...] HOPE YOU HAVE AN EXTRAORDINARY EXPERIENCE AT [facility]! We appreciate your feedback as we are always looking for ways to improve the patient experience in our office, and I would also like to know if you've received excellent care today! Referrals Appreciated. We accept new patients. We provide a wide spectrum of medical care involvingWomen's health. If you know of any family members or friends that need an [employer] provider, I would be happy to see [...] your next appointment, please call us at [phone] as soon as possible to schedule. For scheduling routine appointments, requesting refills or leaving a message for your doctor, the office phone is [phone]. You will be given options to get to the assistance you need. Phone lines are open from 8:00 am to 4:30 pm Monday through Monday. All prescription refills must be requestedduring regular office phone hours. Our fax number is [phone]. Also as FYI, to shorten wait times on the phone, our office has created a Triage Nurse Line. Our office triage nurses for the [facility] [employer] are available during regular business hours toarrange for medication refills or routine medical questions. To speak with a Registered Nurse, please call [phone], Option 3, then 4. To cancel, reschedule, or make an appointment, please call [phone], Option 1, then 1. You have the option of using the [employer] for non-urgent questions, to view lab results, renew prescriptions and make appointments. If you have questions AND for a quicker response and since I'm not always in the office or available during the day, please call our TRIAGE NURSES in the office. [phone] Thanks! Appointments We will make every effort [...] notes and reports. Kiera [facility] Guidelines for Vulvar Skin Care NOTE: The [...] (no dry weave pads). Do not use hznc-bwo-spsptro creams or ointments until you ask your [...] men and women and are spread by sxki-ds-jdmp contact during vaginal, anal, or oral sex. [...] their age group and health history (see IMC282 ???Cervical Cancer Screening?? ). In addition to [...] Penis: An external male sex organ. Sexual [place]: The act of the penis of the [...] detected Not detected 11/03/2021 4:18 PM CDT [facility] Microbiology MISCELLANEOUS SAMPLES / Unknown Collection / Unknown 10/29/2021 3:33 PM CDT 11/01/2021 11:09 AM CDT Narrative [facility] - 11/03/2021 4:18 PM CDT [...] Gen-Probe Aptima Trichomonas vaginalis Assay on the [place] system and rectal and pharyngeal swabs with Gen-Probe Aptima combo 2 were determined by the Molecular Diagnostics Laboratory at [facility]. ??They have not been cleared or approved [...] Kelsie Mitchell MD LAB - MICROBIOLOGY ORDERABLES [facility] [address] [facility] [place], [place] [id number] [place] [address] * CULTURE YEAST WITH DIRECT FLUORESCENT ABDIRAHMAN (10/29/2021 3:32 PM CDT) Smear [facility] Comment: ??CULTURE, YEAST, W/DIRECT FLUORESCENT ABDIRAHMAN ?Micro Number: ?[id number] ??Test Status: ? Final ??Specimen Source: ?? Genital ??Specimen Quality: ??Adequate ??Smear: ? No yeast seen ??Result: ?No yeast isolated Test Performed at: [employer] ??[id number] GLEN KLEIN MD Microbiology SPECIMEN FROM GENITAL SYSTEM / Unknown 10/29/2021 3:32 PM CDT 10/30/2021 12:01 AM CDT Kelsie Mitchell MD LAB - MICROBIOLOGY ORDERABLES [address] [address] * FUNGUS ABDIRAHMAN - POINT OF CARE [...] pill documented in this encounter Care Teams Cotton Program Technician Relationship Specialty Start Date End Date Karson Payne MD [address] [address] PCP - General 07/12/21 documented as of this encounter
--- OUTSIDE RECORDS SUMMARY | 2024-06-08 08:14 | XMS_ITS | Encounter Summary ---
Author Organization [facility] Address [address] [facility] [place] [address] Care Team Providers Care Accounts Executive Name Role Phone Karson Payne MD Primary Care Provider Reason for Visit * Reason Comments VAGINITIS Encounter Details Date Type Department Care Team (Late st Contact Info) Description 09/27/2021 2:20 PM CDT Office Visit [facility] [address] [place] [address] Raysa Asher, FIELD SERVICE MANAGER-CAT SKINNER [address] [address] Trichomoniasis (Primary Dx) Social History [...] 10-29-2021 To abstain form sex until upcoming mannequin mounter visit NEEDS AISHA for trich Time - [...] ? referring and communicating with other health career placement services counselor via faxed communication ? documenting clinical information in the electronic health record ? independently interpreting results and communicating results to the patient/family/caregiver as needed ? care coordination as needed Total time 30 minutes New: 30 min (93461) 45 min (36719) 60 min (37112) Established 20 min (26198) 30 min (18586) 40 min (35921) documented in this encounter Plan of Treatment [...] Primary documented in this encounter Care Teams Accounts Executive Relationship Specialty Start Date End Date Karson Payne MD [address] [phone] PCP - General 07/12/21 documented as of this encounter
--- OUTSIDE RECORDS SUMMARY | 2024-06-08 08:14 | XMS_ITS | Encounter Summary ---
Author Organization [facility] Address [address] [place] [address] Care Team Providers Care Communications Project Lead Name Role Phone Karson Payne MD Primary Care Provider Reason for Visit * Reason Onset Date Comments Results 11/01/2021 Encounter Details Date Type Department Care Team (Late st Contact Info) Description 11/01/2021 Telephone [facility] [address] [place], [place] [phone] Kelsie Mitchell MD [address] [place], [place] [phone] Results Social History Tobacco Use Types Packs/Day [...] RN sent pt a test message on [employer], she felt she wasn't active on [employer] documented in this encounter Plan of Treatment Not on file documented as of this encounter Visit Diagnoses Not on filedocumented in this encounter Care Teams Communications Project Lead Relationship Specialty Start Date End Date Karson Payne MD [address] [address] PCP - General 07/12/21 documented as of this encounter
--- OUTSIDE RECORDS SUMMARY | 2024-06-08 08:14 | XMS_ITS | Encounter Summary ---
Author Organization [facility] Address [address] [place] [address] Care Team Providers Care Combiner Name Role Phone Karson Payne MD Primary Care Provider +1- [phone] Reason for Visit * Reason Comments Refill Request Encounter Details Date Type Department Care Team (Late st Contact Info) Description 10/14/2021 Refill [facility] [address] [place] [address] Raysa Asher APRN-CNP [address] [address] Refill Request Social History Tobacco [...] Pt was to be seen by gen rn documentation. I do not see any appointments on file. I would be willing to refill only until time of rn documentation appointment. * Telephone Encounter - [facility] [place] [...] Metrorrhagia documented in this encounter Care Teams Combiner Relationship Specialty Start Date End Date Karson Payne MD [address] [address] PCP - General 07/12/21 documented as of this encounter
--- OUTSIDE RECORDS SUMMARY | 2024-06-08 08:14 | XMS_ITS | Encounter Summary ---
Author Organization [facility] Address [address] [place] [address]. [place] [address] [place] [address] Care Team Providers Care Tool Machine Set Up Operator Name Role Phone Charla Campos PA-C Primary Care Provider +1- [phone] Reason for Visit * Reason Comments Follow Up Ulcerative Colitis Encounter Details Date Type Department Care Team (Latest Contact Info) Description 01/12/2024 11:40 AM CDT Office Visit [facility] Medical [facility] Multispecialty Care - [facility] [address], [address] [place] [address] Maria T Serrano NP 3 [facility] [address] [place] [address] Follow Up; Ulcerative Colitis Social History Tobacco [...] Date Anxiety Unknown Depression Unknown Seizure disorder ([facility]) 05/06/2019 Seizures ([facility]) 2020 Ulcerative colitis ([facility]) 06/28/2019 Dr. Omar Johns moderate to severe reed ulcerative colitis Past Surgical History: Procedure Laterality Date COLONOSCOPY N/A 06/28/2019 COLONOSCOPY WITH BIOPSIES performed by Omar Johns MD at [facility] OR ulcerative pancolitis COLONOSCOPY N/A 08/24/2020 COLONOSCOPY WITH COLON BIOPSY VIA LARGE COLD FORCEP AND STOOL SAMPLE FOR CDIFF performed by Omar Hawk MD at [facility] GI TONSILLECTOMY Family History Problem [...] Humiria Assessment 1. Ulcerative pancolitis without complication ([facility]) Recommendations/Plan: Schedule Colonoscopy for surveillance of UC [...] MEDICAL FACILITY Medical Group Family Medicine - [place] [address] [place] [phone] Charla Campos PA-C [address] [place] [address] [phone] (work) documented as of this encounter Results * CALPROTECTIN FECAL (01/20/2024 10:30 AM CDT) CALPROTECTIN (STOOL) 5 mcg/g 01/28/2024 9:[address] ROBERT GELLER Comment: ? Reference Range: ? [...] suggested for borderline values. Test performed by [employer] ? [address] [facility], ? [place] [address] ? [employer]s I Assembler: Elyse aCnela MD,PHD,SANDRA Test Reported by Aryan Schmitt, [employer] [place], [address] [place], [place] José Antonio Mart M.D., Ph.D., Director of Laboratories , [place] [id number] STOOL SPECIMEN / Unknown 01/20/2024 10:30 AM CDT Maria T Serrano BREASTER BODY FLUIDS AND STOOLS CHANTEL MARK Final Result MARIANA SAL [address] [place] [address], [place] [phone] documented in this encounter Visit Diagnoses Diagnosis Ulcerative pancolitis without complication (CMS/HCC HHS/HCC)- Primary Diarrhea, unspecified type documented in this encounter Additional Health Concerns Assessment Noted Time PHQ-9 Depression Total Score: 11 024 3:20 PM CDT documented as of this encounter Care Teams Tool Machine Set Up Operator Relationship Specialty Start Date End Date Charla Campos PA-C [address] [place] [address] PCP - General PHYSICIAN BROACHING MACHINE SET UP OPERATOR 08/22/23 documented as of this encounter
--- OUTSIDE RECORDS SUMMARY | 2024-06-08 08:14 | XMS_ITS | Encounter Summary ---
Author Organization [facility] Address [address] [place] [address] Care Team Providers Care Installation Helper Name Role Phone Leta Villanueva MD Primary Care Provider Unavailabl e Reason for Visit * Reason Comments Headache Sore Throat 3 days Fatigue Congestion Cough Encounter Details Date Type Department Care Team ([facility] st Contact Info) Description 06/30/2016 2:20 PM STAFF INTERNIST OFFICE BASED ONLY Office Visit [facility] AT [address] [phone] [facility] Viral upper respiratory illness (Primary Dx) Social History Tobacco Use Types Packs/Day Years Used Date Smoking Tobacco: Never Sex and Gender Information Value Date Recorded Sex Assigned at Not on file Gender Identity Not on file Sexual Orientation Not on file documented as of this encounter Last Filed Vital Signs Vital Sign Reading Time Taken Comments Blood Pressure 102/62 06/30/2016 2:30 PM STAFF INTERNIST OFFICE BASED ONLY Pulse 108 06/30/2016 2:30 PM STAFF INTERNIST OFFICE BASED ONLY Temperature 36.5 ??C (97.7 ??F) 06/30/2016 2:30 PM CS T Respiratory Rate 18 06/30/2016 2:30 PM STAFF INTERNIST OFFICE BASED ONLY Oxygen Saturation 98% 06/30/2016 2:30 PM STAFF INTERNIST OFFICE BASED ONLY Inhaled Oxygen Concentration - - Weight 108.9 kg (240 lb) 06/30/2016 2:30 PM STAFF INTERNIST OFFICE BASED ONLY Height 180.3 cm (5' 11 ) 06/30/2016 2:30 PM STAFF INTERNIST OFFICE BASED ONLY Body Mass Index 33.47 06/30/2016 2:30 PM STAFF INTERNIST OFFICE BASED ONLY Body Mass Index Percentile 96.31% 06/30/2016 2:3 0 PM STAFF INTERNIST OFFICE BASED ONLY Growth Chart: CDC (Girls, 2- 20 Years) documented in this encounter Patient Instructions * Patient Instructions* Wanda Helton APRN-CNP - 06/30/2016 2:55 PM STAFF INTERNIST OFFICE BASED ONLY Viral Syndrome in Children WHAT YOU NEED [...] Use soap and water. Use gel hand tar heat exchanger cleaner when soapand water are not available. [...] your child. The above information is an educational psychology teacher only. It is not intended as medicaladvice for individual conditions or treatments. Talk to your doctor, nurse or pharmacist before following any medical regimen to see if it is safe and effective for you. ?? 2016 [employer] Information is for End User's use only and may not be sold, redistributed or otherwise used for commercial purposes. All illustrations and images included in CareNotes?? are the copyrighted property of [employer], [employer]. or [employer]. F INTERNIST OFFICE BASED ONLY documented in this encounter Progress Notes * [...] Control positive NEGATIVE - POSITIVE Influenza Lot# [id number] Influenza Expir Date 12/07/2017 Encounter Diagnosis Name [...] or ER for further evaluation. Understanding voiced. F INTERNIST OFFICE BASED ONLY documented in this encounter Plan of Treatment [...] site documented in this encounter Care Teams Installation Helper Relationship Specialty Start Date End Date Leta Villanueva MD PCP - General 02/29/16 07/11/21 documented as of this encounter
--- OUTSIDE RECORDS SUMMARY | 2024-06-08 08:15 | XMS_ITS | Encounter Summary ---
Author Organization [facility] Address [address] [place] [address]. [place] [address] [place] [address] Care Team Providers Care Microwave Remote Sensing Scientist Name Role Phone Charla Campos PA-C Primary Care Provider +1- [phone] Encounter Details Date Type Department Care Team (Late st Contact Info) Description 08/22/2023 [employer] Message Enc [facility] Medical Group Family Medicine - [place] [address] [place] [address] Charla Campos PA-C [address] [place], [place] [phone] advice Social History Tobacco Use Types Packs/Day [...] pt this morning. Form up front for pickling grader documented in this encounter Plan of Treatment Upcoming Encounters Date Type Department Care Team (Late st Contact Info) Description 08/21/2024 4:00 PM CDT Office Visit [facility] Medical Group Family Medicine - [address] [address] Charla Campos PA-C [address] [place] [address] documented as of this encounter Visit Diagnoses Not on filedocumented in this encounter Additional Health Concerns Assessment Noted Time PHQ-9 Depression Total Score: 11 024 3:20 PM CDT documented as of this encounter Care Teams Microwave Remote Sensing Scientist Relationship Specialty Start Date End Date Charla Campos PA-C [address] [place] [address] PCP - General PHYSICIAN JOINT SPECIAL OPERATIONS 08/22/23 documented as of this encounter
--- OUTSIDE RECORDS SUMMARY | 2024-06-08 08:15 | XMS_ITS | Encounter Summary ---
Author Organization [facility] Address [address] [place] [address]. [place] [address] [place] [address] Care Team Providers Care Wheat Cleaner Name Role Phone Charla Campos PA-C Primary Care Provider +1- [phone] Reason for Visit * Reason Onset Date Comments Reschedule 10/09/2023 Returned Call 10/09/2023 Encounter Details Date Type Department Care Team (Late st Contact Info) Description 10/09/2023 Telephone [facility] Medical [facility] Multispecialty Care - [facility] [address] [facility], [address] [place] [address] Maria T Serrano NP 3 [facility] [address] [place] [address] Reschedule; Returned Call Social History Tobacco Use [...] [facility] Family Medicine - [place] [address] [place] [phone] Charla Campos PA-C [address] [place] [address] documented as of this encounter Visit Diagnoses Not on filedocumented in this encounter Additional Health Concerns Assessment Noted Time PHQ-9 Depression Total Score: 11 024 3:20 PM CDT documented as of this encounter Care Teams Wheat Cleaner Relationship Specialty Start Date End Date Charla Campos PA-C [address] [place] [address] PCP - General PHYSICIAN LACE SEWER 08/22/23 documented as of this encounter
--- OUTSIDE RECORDS SUMMARY | 2024-06-08 08:15 | XMS_ITS | Encounter Summary ---
Author Organization [facility] [place] Address [address] [place] [address]. [place], [place] [phone] [place] [address] Care Team Providers Care Precision Assembler Name Role Phone Charla Campos PA-C Primary Care Provider +1- [phone] Encounter Details Date Type Department Care Team [...] [facility] Family Medicine - [place] [address] [place] [address] Charla Campos PA-C [address] [place] [address] documented as of this encounter Visit Diagnoses Not on filedocumented in this encounter Additional Health Concerns Assessment Noted Time PHQ-9 Depression Total Score: 11 024 3:20 PM CDT documented as of this encounter Care Teams Precision Assembler Relationship Specialty Start Date End Date Charla Campos PA-C [address] [place] [address] PCP - General PHYSICIAN TRIBAL JUDGE 08/22/23 documented as of this encounter
--- OUTSIDE RECORDS SUMMARY | 2024-06-08 08:15 | XMS_ITS | Encounter Summary ---
Author Organization [facility] Address [address] [place] [address]. [place] [address] [place] [address] Care Team Providers Care Integrated Logistics Support Manager Name Role Phone Charla Campos PA-C Primary Care Provider +1- [phone] Encounter Details Date Type Department Care Team (Late st Contact Info) Description 10/09/2023 Card[employer]o Message Enc [facility] Medical Group Multispecialty Care - [facility] [address] [facility], [address] [place] [phone] Fee[facility]ohart, [facility] Provider reschedule Social History Tobacco [...] 08/21/2024 4:00 PM CDT Office Visit [facility] Medical Group Family Medicine - [place] [address] Charla Campos PA-C [address] [place] [address] documented as of this encounter Visit Diagnoses Not on filedocumented in this encounter Additional Health Concerns Assessment Noted Time PHQ-9 Depression Total Score: 11 024 3:20 PM CDT documented as of this encounter Care Teams Integrated Logistics Support Manager Relationship Specialty Start Date End Date Charla Campos PA-C [address] [place] [address] PCP - General PHYSICIAN CARRIAGE SETTER 08/22/23 documented as of this encounter
--- OUTSIDE RECORDS SUMMARY | 2024-06-08 08:16 | XMS_ITS | Encounter Summary ---
Author Organization [facility] Address [address] [place] [address]. [place] [address] [place] [address] Care Team Providers Care Electrical And Radio Aircraft Mechanic Name Role Phone Fartun Kelly PA-C Primary Care Provider +1- [phone] Reason for Visit * Reason Comments Meet and Greet Provider Pt presents to [facility] care with new pcp Encounter Details Date Type Department Care Team (Late st Contact Info) Description 08/22/2023 3:00 PM CDT Office Visit [facility] Medical Group Family Medicine - [place] [phone] Fartun Kelly PA-C [address] [place] [address] Meet and Greet Provider (Pt presents to [...] off keppra in 2020 prior to his detention. She had a normal EEG. She has been off medication since 2020 and no seizures since 2013. She sees college or university business manager for well woman exam. 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 She takes [...] Date Anxiety Unknown Depression Unknown Seizure disorder ([facility]) 05/06/2019 Seizures ([facility]) 2020 Ulcerative colitis ([facility]) 06/28/2019 Dr. Omar Johns moderate to severe reed ulcerative colitis Past Surgical History: Procedure Laterality Date COLONOSCOPY N/A 06/28/2019 COLONOSCOPY WITH BIOPSIES performed by Omar Johns MD at [facility] OR ulcerative pancolitis COLONOSCOPY N/A 08/24/2020 COLONOSCOPY WITH COLON BIOPSY VIA LARGE COLD FORCEP AND STOOL SAMPLE FOR CDIFF performed by Omar Hawk MD at [facility] GI TONSILLECTOMY Social History Socioeconomic History Marital [...] oz) Diagnoses/Impression: 1. Ulcerative pancolitis without complication ([facility] HHS/[facility]) 2. Chronic rhinitis montelukast (SINGULAIR) 10 MG tablet 3. Morbid obesity ([facility] HHS/[facility]) 4. Cellulitis, unspecified cellulitis site [...] MEDICAL CENTER Medical Group Family Medicine - [place] [address] [place] [phone] Fartun Kelly PA-C [address] [place] [phone] documented as of this encounter Visit Diagnoses Diagnosis Ulcerative pancolitis without complication ([facility])- Primary Chronic rhinitis Morbid obesity ([facility]) Morbid obesity Cellulitis, unspecified cellulitis site History of seizure disorder Personal history of other disorders of nervous system and sense organs documented in this encounter Additional Health Concerns Assessment Noted Time PHQ-9 Depression Total Score: 11 024 3:20 PM CDT documented as of this encounter Care Teams Electrical And Radio Aircraft Mechanic Relationship Specialty Start Date End Date Fartun Kelly PA-C [address] [place] [address] PCP - General PHYSICIAN GLUER MACHINE SETUP OPERATOR 08/22/23 documented as of this encounter
--- OUTSIDE RECORDS SUMMARY | 2024-06-08 08:16 | XMS_ITS | Encounter Summary ---
Author Organization [facility] Address [address] [place] [address]. [place] [address] [place] [address] Care Team Providers Care Civil Engineering Project Manager Name Role Phone Unavailable Primary Care Provider Unavailabl e Reason for Visit * Reason Onset Date Comments Appointment Request 08/21/2023 Encounter Details Date Type Department Care Team (Late st Contact Info) Description 08/21/2023 Telephone [facility] Medical Group Multispecialty Care - [facility] [address] [facility], [address] [place] [address] Maria T Serrano NP 3 [facility] [address] [place] [address] Appointment Request Social History Tobacco Use Types [...] 08/21/2023 4:14 PM CDT Pt scheduled in [place] per pt request pt VU documented in this encounter Plan of Treatment Upcoming Encounters Date Type Department Care Team (Late st Contact Info) Description 08/21/2024 4:00 PM CDT Office Visit [facility] Medical Group Family Medicine - [place] [phone] Charla Campos PA-C [address] [place] [address] documented as of this encounter Visit Diagnoses Not on filedocumented in this encounter Additional Health Concerns Assessment Noted Time PHQ-9 Depression Total Score: 3 07/30/19 22 1:18 PM NET DEVELOPER SOFTWARE ENGINEER C documented as of this encounter
--- OUTSIDE RECORDS SUMMARY | 2024-06-08 08:16 | XMS_ITS | Encounter Summary ---
Author Organization [facility] Address [address] [place] [address]. [place] [address] [place] [address] Care Team Providers Care Accordion Maker Name Role Phone Unavailable Primary Care Provider Unavailabl e Reason for Visit * Reason Comments Follow Up Crohn's Encounter Details Date Type Department Care Team (Latest Contact Info) Description 12/20/2022 9:40 AM CDT Office Visit [facility] Medical [facility] Multispecialty Care - [facility] [address] [facility], [address] [place] [address] Maria T Serrano NP 3 [facility] [address] [place] [address] Follow Up (Crohn's ) Social History Tobacco [...] help with normal bowel movements. ?? 2018 [employer]. and/or its affiliates. All Rights Reserved. Amount [...] with added ascorbic acid 1 cup 0.5 [place] 1 cup 0.7 Vegetables Cooked Green beans 1 cup 4.0 Carrots 1/2 cup sliced 2.3 Peas 1 cup 8.8 Potato (baked, with skin) 1 medium potato 3.8 Raw Ringsted (with peel) 1 cucumber 1.5 Lettuce 1 [...] for Standard Reference. Available at http://www.nal.usda.gov/fnic/foodcomp/search/. Graphic 13092 Version 4.0 documented in this encounter Progress [...] BIOPSIES performed by Omar Johns MD at [facility] OR ulcerative pancolitis COLONOSCOPY N/A 08/24/2020 COLONOSCOPY WITH COLON BIOPSY VIA LARGE COLD FORCEP AND STOOL SAMPLE FOR CDIFF performed by Omar Hawk MD at [facility] GI TONSILLECTOMY No family history on file. Social History Tobacco Use Smoking status: Never Smokeless tobacco: Never Vaping Use Vaping Use: Never used Substance Use Topics Alcohol use: Yes Comment: occasional Drug use: No Outpatient Medications Marked as Taking for the 12/20/22 encounter (Office Visit) with Mari aT eSrrano NP Medication Sig Dispense Refill azaTHIOprine (IMURAN) [...] Humiria Assessment 1. Ulcerative pancolitis without complication (CMS/[facility]) Recommendations/Plan: UC controlled with current medication management. [...] Omar Johns MD at 04/10/2023 6:04 PM ALLERGY AND IMMUNOLOGY SPECIALIST RGY AND IMMUNOLOGY SPECIALIST documented in this encounter Plan of Treatment Upcoming Encounters Date Type Department Care Team (Late st Contact Info) Description 08/21/2024 4:00 PM CDT Office Visit [facility] Medical Group Family Medicine - [place] [phone] Charla Campos PA-C [address] [place] [address] documented as of this encounter Visit Diagnoses Diagnosis Ulcerative pancolitis without complication (CMS/HCC HHS/HCC)- Primary documented in this encounter Additional Health Concerns Assessment Noted Time PHQ-9 Depression Total Score: 3 07/30/19 22 1:18 PM ALLERGY AND IMMUNOLOGY SPECIALIST documented as of this encounter
--- OUTSIDE RECORDS SUMMARY | 2024-06-08 08:16 | XMS_ITS | Encounter Summary ---
Author Organization [facility] Address [address] [place] [address]. [place], [place] [address] [place] [address] Care Team Providers Care International Sourcing Manager Name Role Phone Charla Campos PA-C Primary Care Provider +1- [phone] Encounter Details Date Type Department Care Team [...] [facility] Family Medicine - [address] [phone] Charla Campos PA-C [address] [place] [address] documented as of this encounter Visit Diagnoses Not on filedocumented in this encounter Additional Health Concerns Assessment Noted Time PHQ-9 Depression Total Score: 3 07/30/19 22 1:18 PM ACADEMIC SUPPORT CENTER DIRECTOR documented as of this encounter Care Teams International Sourcing Manager Relationship Specialty Start Date End Date Charla Campos PA-C [address] [place] [address] PCP - General PHYSICIAN NET DEVELOPMENT MANAGER 08/22/23 documented as of this encounter
--- OUTSIDE RECORDS SUMMARY | 2024-06-08 08:16 | XMS_ITS | Encounter Summary ---
Author Organization [facility] Address [address] [place] [address]. [place], [place] [address] [place] [address] Care Team Providers Care Stock Saw Operator Name Role Phone Unavailable Primary Care [...] Description 08/21/2024 4:00 PM CDT Office Visit [facility] Medical Group Family Medicine - [place] [address] [place] [address] Charla Campos PA-C [address] [place] [address] documented as of this encounter Visit Diagnoses Not on filedocumented in this encounter Additional Health Concerns Assessment Noted Time PHQ-9 Depression Total Score: 3 07/30/19 22 1:18 PM CHUTE LOADER documented as of this encounter
--- OUTSIDE RECORDS SUMMARY | 2024-06-08 08:16 | XMS_ITS | Encounter Summary ---
Author Organization [facility] Address [address] [place] [address]. [place] [address] [place] [address] Care Team Providers Care Construction Ironworker Name Role Phone Unavailable Primary Care Provider Unavailabl e Reason for Visit * Reason Onset Date Comments Prior Authorization 05/30/2023 Encounter Details Date Type Department Care Team (Late st Contact Info) Description 05/30/2023 Telephone [facility] Medical Group Multispecialty Care - [facility] [address] [facility] [address] [facility] [address] [place] [address] Maria T Serrano NP 3 [facility] [address] [place] [address] Prior Authorization Social History Tobacco Use Types [...] got information that she receives infusions at [facility] in [facility] and [facility]. Called [facility] and gave office patient's new insurance information. Faxed over most recent progress note per recommendation. [facility] will work on Authorization Called patient to make her aware patient VU. IS SPECIALIST * Leonardo Barboza - 05/30/2023 11:46 AM CST Pt called and stated that she has new insurance(that has already been updated) and needs authorization for her infusions to be completed before her next treatment on 06/07. Please give pt a call back to discuss once approval is obtained [phone] IS SPECIALIST documented in this encounter Plan of Treatment Upcoming Encounters Date Type Department Care Team (Late st Contact Info) Description 08/21/2024 4:00 PM CDT Office Visit [facility] Medical Group Family Medicine - [place] [address] [place] [phone] Charla Campos PA-C [address] [place] [address] documented as of this encounter Visit Diagnoses Not on filedocumented in this encounter Additional Health Concerns Assessment Noted Time PHQ-9 Depression Total Score: 3 07/30/19 22 1:18 PM CRISIS SPECIALIST documented as of this encounter
--- OUTSIDE RECORDS SUMMARY | 2024-06-08 08:16 | XMS_ITS | Encounter Summary ---
Author Organization [facility] Address [address] [place] [address]. [place], [place] [address] [place] [address] Care Team Providers Care Principal Strategist Name Role Phone Unavailable Primary Care Provider [...] [facility] Family [facility] - [place] 100 [place] [address] Charla Campos PA-C [address] [place] [address] documented as of this encounter Visit Diagnoses Not on filedocumented in this encounter Additional Health Concerns Assessment Noted Time PHQ-9 Depression Total Score: 3 07/30/19 22 1:18 PM REFLOW OPERATOR documented as of this encounter
--- OUTSIDE RECORDS SUMMARY | 2024-06-08 08:16 | XMS_ITS | Encounter Summary ---
Author Organization [facility] Address [address] [place] [address]. [place], [place] [address] [place] [address] Care Team Providers Care Glass Polisher Name Role Phone Unavailable Primary Care Provider [...] [facility] Family Medicine - [place] 100 [place] [address] Charla Campos PA-C [address] [place] [address] documented as of this encounter Visit Diagnoses Not on filedocumented in this encounter Additional Health Concerns Assessment Noted Time PHQ-9 Depression Total Score: 3 07/30/19 22 1:18 PM WINE PASTEURIZER documented as of this encounter
--- OUTSIDE RECORDS SUMMARY | 2024-06-08 08:16 | XMS_ITS | Encounter Summary ---
Author Organization [facility] Address [address] [place] [address]. [place], [place] [address] [place] [address] Care Team Providers Care Hoop Riveter Name Role Phone Charla Campos PA-C Primary Care Provider +1- [phone] Encounter Details Date Type Department Care Team [...] [facility] Family Medicine - [address] [address] Charla Campos PA-C [address] [place] [address] documented as of this encounter Visit Diagnoses Not on filedocumented in this encounter Additional Health Concerns Assessment Noted Time PHQ-9 Depression Total Score: 3 07/30/19 22 1:18 PM DRY CURER documented as of this encounter Care Teams Hoop Riveter Relationship Specialty Start Date End Date Charla Campos PA-C [address] [place] [address] PCP - General PHYSICIAN SAW OPERATOR 08/22/23 documented as of this encounter
--- OUTSIDE RECORDS SUMMARY | 2024-06-08 08:16 | XMS_ITS | Encounter Summary ---
Author Organization [facility] Address [address] [place] [address]. [place], [place] [address] [place] [address] Care Team Providers Care Button Facing Machine Operator Name Role Phone Unavailable Primary Care Provider Unavailabl e Reason for Visit * Reason Comments Acute Note Wounds on legs, ankl es Encounter Details Date Type Department Care Team (Late st Contact Info) Description 01/02/2023 1:00 PM CDT Office Visit [facility] [address] [facility] [address] [place] [address] Monik Fonseca MD [address] [facility] [address] [place] [phone] Acute Note (Wounds on legs, ankles) Social [...] on rocks to climb back on the [employer]. That process caused her to scrape some [...] Past Medical History: Diagnosis Date Seizures (HHS/HCC) ([facility]/HCC) Ulcerative colitis (HHS/HCC) (CMS/HCC) 06/28/2019 Dr. Omar Johns moderate to severe reed ulcerative colitis Past Surgical History: Procedure Laterality Date COLONOSCOPY N/A 06/28/2019 COLONOSCOPY WITH BIOPSIES performed by Omar Johns MD at [facility] OR ulcerative pancolitis COLONOSCOPY N/A 08/24/2020 COLONOSCOPY WITH COLON BIOPSY VIA LARGE COLD FORCEP AND STOOL SAMPLE FOR CDIFF performed by Omar Hawk MD at [facility] GI TONSILLECTOMY Social History Tobacco Use [...] [facility] Family Medicine - [place] [address] [place] [address] Charla Campos PA-C [address] [place] [address] documented as of this encounter Visit Diagnoses Diagnosis Cellulitis, unspecified cellulitis site- Primary documented in this encounter Additional Health Concerns Assessment Noted Time PHQ-9 Depression Total Score: 3 07/30/19 22 1:18 PM REAL ESTATE ASSET MANAGER documented as of this encounter
--- OUTSIDE RECORDS SUMMARY | 2024-06-08 08:16 | XMS_ITS | Encounter Summary ---
Author Organization [facility] Address Pending sale to [facility] [place] [address] [place] [address] Care Team Providers Care Director Of Mobile Marketing Name Role Phone Unavailable Primary Care Provider Unavailabl e Reason for Visit * Reason Onset Date Comments Information 08/18/2023 Encounter Details Date Type Department Care Team (Late st Contact Info) Description 08/18/2023 Telephone [facility] Multispecialty Care - [address], [address] [place] [address] Omar Johns MD 3 [facility] [address] [place] [address] Information Social History Tobacco Use Types Packs/Day [...] 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 [address] documented as of this encounter Visit Diagnoses Not on filedocumented in this encounter Additional Health Concerns Assessment Noted Time PHQ-9 Depression Total Score: 3 07/30/19 22 1:18 PM SENIOR FOREMAN documented as of this encounter
--- OUTSIDE RECORDS SUMMARY | 2024-06-08 08:16 | XMS_ITS | Encounter Summary ---
Author Organization [facility] Address [address] [place] [address]. [place], [place] [address] [place] [address] Care Team Providers Care Final Tester Name Role Phone Charla Campos PA-C Primary Care Provider +1- [phone] Encounter Details Date Type Department Care Team [...] [facility] Family Medicine - [place] 100 [place] [address] Charla Campos PA-C [address] [place] [address] documented as of this encounter Visit Diagnoses Not on filedocumented in this encounter Additional Health Concerns Assessment Noted Time PHQ-9 Depression Total Score: 11 024 3:20 PM CDT documented as of this encounter Care Teams Final Tester Relationship Specialty Start Date End Date Charla Campos PA-C [address] [place] [address] PCP - General PHYSICIAN LINUX NETWORK ENGINEER 08/22/23 documented as of this encounter
--- OUTSIDE RECORDS SUMMARY | 2024-06-08 08:17 | XMS_ITS | Encounter Summary ---
Author Organization [facility] Address [address] [place] [address]. [place] [address] [place] [address] Care Team Providers Care Phone Banker Name Role Phone Unavailable Primary Care Provider Unavailabl e Reason for Visit * Reason Onset Date Comments Error 12/02/2022 Encounter Details Date Type Department Care Team (Late st Contact Info) Description 12/02/2022 Telephone [facility] [address] [address] Maria T Serrano NP [address] [address] Error Social History Tobacco Use [...] [facility] Family Medicine - [place] 100 [place] [phone] Charla Campos PA-C 100 [place] [address] documented as of this encounter Visit Diagnoses Not on filedocumented in this encounter Additional Health Concerns Assessment Noted Time PHQ-9 Depression Total Score: 3 07/30/19 22 1:18 PM 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
--- OUTSIDE RECORDS SUMMARY | 2024-06-08 08:17 | XMS_ITS | Encounter Summary ---
Author Organization [facility] Address [address] [place] [address]. [place] [address] [place] [address] Care Team Providers Care Industrial Pipefitter Journeyman Name Role Phone Unavailable Primary Care Provider Unavailabl e Reason for Visit * Reason Onset Date Comments Appointment Request 11/21/2022 Encounter Details Date Type Department Care Team (Late st Contact Info) Description 11/21/2022 Telephone [facility] G[facility]ty Clinic [address] [address] Maria T Serrano NP [address] [address] Appointment Request Social History Tobacco [...] [facility] Family Medicine - [place] [address] [place] [phone] Charla Campos PA-C 100 [place] [address] documented as of this encounter Visit Diagnoses Not on filedocumented in this encounter Additional Health Concerns Assessment Noted Time PHQ-9 Depression Total Score: 3 07/30/19 22 1:18 PM PARKING 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
--- OUTSIDE RECORDS SUMMARY | 2024-06-08 08:17 | XMS_ITS | Encounter Summary ---
Author Organization [facility] Address [address] [place] [address]. [place], [place] [address] [place] [address] Care Team Providers Care Resident Caregiver Name Role Phone Unavailable Primary Care Provider [...] Description 08/21/2024 4:00 PM CDT Office Visit [facility] Group Family Medicine - [place] 100 [place] [address] Charla Campos PA-C [address] [place] [address] documented as of this encounter Visit Diagnoses Not on filedocumented in this encounter Additional Health Concerns Assessment Noted Time PHQ-9 Depression Total Score: 3 07/30/19 22 1:18 PM CLINICAL OPERATIONS CONSULTANT documented as of this encounter
--- OUTSIDE RECORDS SUMMARY | 2024-06-08 08:17 | XMS_ITS | Encounter Summary ---
Author Organization [facility] Address [facility]ly [facility]6 [facility] [place] [address] [place] [address] Care Team Providers Care Edge Bander Operator Name Role Phone Unavailable Primary Care Provider Unavailabl e Encounter Details Date Type Department Care Team (Latest Contact Info) Description 12/10/2022 9:30 AM CDT - 12/10/2022 11:59 PM CDT Hospital Encounter [facility] [place] [address] Seble Bliss, JORI [address] [facility]. [address] [place] [address] Discharge Disposition: Home or Self Care (Routine [...] 100 MG injectionIndicati ons:Ulcerative pancolitis without complication ([facility]) Inject 70 mLs (700 mg total) into the vein see administration instructions. 5 mg/kg per dose IV every 8 weeks for 12 months. 7 each 5 2 azaTHIOprine (IMURAN) 50 MG tabletIndications :Ulcerative pancolitis without complication ([facility]) Take 1 tablet (50 mg total) by [...] [facility] Family Medicine - [place] 100 [place] [phone] Charla Campos PA-C [address] [place] [address] documented as of this encounter Procedures Procedure Name Priority Date/Time Associated Diagnosis Comments TBGOLD-TUBERCULOSIS TST CELL MEDIATED IMMUNITY Routine 12/10/2022 9:40 AM CDT Ulcerative pancolitis without complication (CMS/HCC HHS/HCC) COMPREHENSIVE METABOLIC PANEL Routine 12/10/2022 9:40 AM CDT Ulcerative pancolitis with rectal bleeding (CMS/HCC HHS/HCC) CBC W/DIFF AUTOMATED Routine 12/10/2022 9:40 AM CDT Ulcerative pancolitis with rectal bleeding ([facility]/HCC HHS/HCC) documented in this encounter Results * (ABNORMAL) COMPREHENSIVE METABOLIC PANEL (12/10/2022 9:40 AM CDT) GLUCOSE 101(H) 70 - 99 MG/DL 12/10/2022 10:20 AM CDT [facility] BUN 10 7 - 18 MG/DL 12/10/2022 10:20 AM CDT [facility] CREATININE S/P/B 0.81 0.55 - 1.02 MG/DL 12/10/2022 10:20 AM CDT [facility] SODIUM S/P/B 139 136 - 145 MMOL/L 12/10/2022 10:20 AM CDT [facility] POTASSIUM S/P/B 4.3 3.5 - 5.1 MMOL/L 12/10/2022 10:20 AM CDT [facility] CHLORIDE S/P/B 109(H) 100 - 108 MMOL/L 12/10/2022 10:20 AM CDT [facility] CO2 23.9 21 - 32 MMOL/L 12/10/2022 10:20 AM T [facility] CALCIUM S/P/B 9.4 8.5 - 10.1 MG/DL 12/10/2022 10:20 AM [facility] BILIRUBIN TOTAL S/P/B 0.5 0.2 - 1.2 MG/DL 12/10/2022 10:20 AM [facility] Comment: THIS ASSAY IS NOT RECOMMENDED FOR PATIENTS UNDERGOING TREATMENT WITH ELTROMBOPAG DUE TO THE POTENTIAL FOR FALSELY ELEVATED RESULTS. TOTAL PROTEIN S/P/B 7.8 6.4 - 8.2 G/DL 12/10/2022 10:20 AM [facility] ALBUMIN S/P/B 3.5 3.4 - 5.0 G/DL 12/10/2022 10:20 AM [facility] AST 15 15 - 37 U/L 12/10/2022 10:20 AM [facility] ALT 13(L) 14 - 55 U/L 12/10/2022 10:20 AM [facility] ALKALINE PHOSPHATASE S/P/B 59 50 - 136 U/L 12/10/2022 10:20 AM [facility] ANION GAP 6.1 5 - 15 MMOL/L 12/10/2022 10:20 AM [facility] BUN CREATININE RATIO 12.4 6 - 26 12/10/2022 10:20 AM [facility] A/G RATIO 0.8(L) 1.0 - 2.0 RATIO 12/10/2022 10:20 AM [facility] GFR ESTIMATE >90 >90 ML/MIN/1.7 3 M2 12/10/2022 10:20 AM [facility] Comment: NOTE: eGFR is not calculated for patients <18 years of age. This is an estimated GFR calculation using the new CKD EPI creatinine equation without race and so does not require a correction factor for race. This estimated GFR should not be used for calculating drug doses. 12/10/2022 9:40 AM CDT us Seble Bliss NP LABORATORY Final Result [facility] 3 [place] [address], * (ABNORMAL) CBC W/DIFF AUTOMATED (12/10/2022 9:40 AM CDT) WBC 8.8 4.5 - 11.0 x10'3/uL 12/10/2022 10:01 AM CDT [facility] RBC 5.21 4.20 - 5.40 x10'6/uL 12/10/2022 10:01 AM CDT [facility] HGB 15.2 12.0 - 16.0 G/DL 12/10/2022 10:01 AM CDT [facility] HCT 47.2 38.0 - 48.0 % 12/10/2022 10:01 AM CDT [facility] MCV 90.6 81.0 - 99.0 FL 12/10/2022 10:01 AM CDT [facility] MCH 29.2 27.0 - 31.0 PG 12/10/2022 10:01 AM CDT [facility] MCHC 32.2 32.0 - 36.0 G/DL 12/10/2022 10:01 AM CDT [facility] RDW 13.0 11.5 - 14.5 % 12/10/2022 10:01 AM CDT [facility] PLT 336 130 - 400 x10'3/uL 12/10/2022 10:01 AM CDT [facility] MPV 9.7 9.3 - 12.2 FL 12/10/2022 10:01 AM T [facility] DIFFERENTIAL TYPE AUTOMATED DIFFERENTIAL 12/10/2022 10:01 AM T [facility] NEUTROPHILS % 53.7 % 12/10/2022 10:01 AM T [facility] LYMPHOCYTES % 33.0 % 12/10/2022 10:01 AM T [facility] MONOCYTES % 9.5 % 12/10/2022 10:01 AM T [facility] EOSINOPHILS 2.5 % 12/10/2022 10:01 AM T [facility] BASOPHILS 1.0 % 12/10/2022 10:01 AM T [facility] IMMATURE GRANS % 0.3 % 12/11/19 10:01 AM T [facility] ABS. NEUTROPHILS TOTAL 4.73 1.80 - 7.70 x10'3/uL 12/10/2022 10:01 AM T [facility] ABS. LYMPHOCYTES 2.91 1.00 - 4.80 x10'3/uL 12/10/2022 10:01 AM T [facility] ABS. MONOCYTES 0.84 0.24 - 0.86 x10'3/uL 12/10/2022 10:01 AM T [facility] ABS. EOSINOPHILS 0.22 0.04 - 0.36 x10'3/uL 12/10/2022 10:01 AM T [facility] ABS. BASOPHILS 0.09(H) 0.01 - 0.08 x10'3/uL 12/10/2022 10:01 AM T [facility] ABS. IMMATURE GRANULOCYTES 0.03 0.00 - 0.49 x10'3/uL 12/10/2022 10:01 AM CDT [facility] 12/10/2022 9:40 AM CDT Seble Bliss NP LABORATORY Final Result Performing Organization Address [facility] Co de Phone Number [facility] [address] [place] [address], [place] [phone] * TBGOLD-TUBERCULOSIS TST CELL MEDIATED IMMUNITY (12/10/2022 9:40 AM CDT) TB1 AG MINUS NIL 0.01 IU/ML 12/13/19 10:36 AM CDT [facility] TB2 AG MINUS NIL 0.00 IU/ML 12/13/19 10:36 AM CDT [facility] TB QUANTIFERON NEGATIVE NEGATIVE 12/12/2022 10:36 AM CDT [facility] TB INTERPRETATION M. tuberculosis infection unlikely but cannot be excluded especially when any illness is consistent with TB disease and/or likelihood of progression to disease is increased. ?? In patients at high risk to M. tuberculosis infection, a second test should be considered. 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
--- OUTSIDE RECORDS SUMMARY | 2024-06-08 08:17 | XMS_ITS | Encounter Summary ---
Author Organization [facility] Address [address] [place] [address]. [place] [address] [place] [address] Care Team Providers Care Consignee Name Role Phone Unavailable Primary Care Provider Unavailabl e Reason for Visit * Reason Onset Date Comments Returned Call 12/05/2022 Encounter Details Date Type Department Care Team (Late st Contact Info) Description 12/05/2022 Telephone [facility] Gastro[facility]ology Specialty Clinic [address] [address] Maria T Serrano, JORI [address] [address] Returned Call Social History Tobacco [...] [facility] Family [facility] - [place] 100 [place] [phone] Charla Campos PA-C 100 [facility] [place] [address] documented as of this encounter Visit Diagnoses Not on filedocumented in this encounter Additional Health Concerns Assessment Noted Time PHQ-9 Depression Total Score: 3 07/30/19 22 1:18 PM PERSONAL INSURANCE ADVISOR documented as of this encounter
--- OUTSIDE RECORDS SUMMARY | 2024-06-08 08:17 | XMS_ITS | Encounter Summary ---
Author Organization [facility] Address [facility]6 [facility] [place] [address] [place] [address] Care Team Providers Care Fish And Game Warden Name Role Phone Unavailable Primary Care Provider Unavailabl e Encounter Details Date Type Department Care Team (Late st Contact Info) Description 11/11/2022 Orders Only [facility] Group Multispecialty Care - [facility] 3 [facility], [address] [place] [address] Seble Bliss, JORI 3 [facility]. [address] [place] [address] Social History Tobacco Use Types Packs/Day Years [...] 08/21/2024 4:00 PM CDT Office Visit [facility] Group Family Medicine - [place] [address] Charla Campos PA-C [address] [place] [address] documented as of this encounter Results * (ABNORMAL) COMPREHENSIVE METABOLIC PANEL (12/10/2022 9:40 AM CDT) [facility] GLUCOSE 101(H) 70 - 99 MG/DL 12/10/2022 10:20 AM CDT [facility] BUN 10 7 - 18 MG/DL 12/10/2022 10:20 AM CDT [facility] CREATININE S/P/B 0.81 0.55 - 1.02 MG/DL 12/10/2022 10:20 AM CDT [facility] SODIUM S/P/B 139 136 - 145 MMOL/L 12/10/2022 10:20 AM CDT [facility] POTASSIUM S/P/B 4.3 3.5 - 5.1 MMOL/L 12/10/2022 10:20 AM CDT [facility] CHLORIDE S/P/B 109(H) 100 - 108 MMOL/L 12/10/2022 10:20 AM CDT [facility] CO2 23.9 21 - 32 MMOL/L 12/10/2022 10:20 AM T [facility] CALCIUM S/P/B 9.4 8.5 - 10.1 MG/DL 12/10/2022 10:20 AM T [facility] BILIRUBIN TOTAL S/P/B 0.5 0.2 - 1.2 MG/DL 12/10/2022 10:20 AM T [facility] Comment: THIS ASSAY IS NOT RECOMMENDED FOR PATIENTS UNDERGOING TREATMENT WITH ELTROMBOPAG DUE TO THE POTENTIAL FOR FALSELY ELEVATED RESULTS. TOTAL PROTEIN S/P/B 7.8 6.4 - 8.2 G/DL 12/10/2022 10:20 AM T [facility] ALBUMIN S/P/B 3.5 3.4 - 5.0 G/DL 12/10/2022 10:20 AM T [facility] AST 15 15 - 37 U/L 12/10/2022 10:20 AM [facility] ALT 13(L) 14 - 55 U/L 12/10/2022 10:20 AM [facility] ALKALINE PHOSPHATASE S/P/B 59 50 - 136 U/L 12/10/2022 10:20 AM [facility] ANION GAP 6.1 5 - 15 MMOL/L 12/10/2022 10:20 AM [facility] BUN CREATININE RATIO 12.4 6 - 26 12/10/2022 10:20 AM [facility] A/G RATIO 0.8(L) 1.0 - 2.0 RATIO 12/10/2022 10:20 AM [facility] GFR ESTIMATE >90 >90 ML/MIN/1.7 3 M2 12/10/2022 10:20 AM [facility] Comment: NOTE: eGFR is not calculated for patients <18 years of age. This is an estimated GFR calculation using the new CKD EPI creatinine equation without race and so does not require a correction factor for race. This estimated GFR should not be used for calculating drug doses. 12/10/2022 9:40 AM CDT Seble Bliss NP LABORATORY Final Result [facility] [address] [place] [address], [place] [phone] * (ABNORMAL) CBC W/DIFF AUTOMATED (12/10/2022 9:40 AM CDT) WBC 8.8 4.5 - 11.0 x10'3/uL 12/10/2022 10:01 AM CDT [facility] RBC 5.21 4.20 - 5.40 x10'6/uL 12/10/2022 10:01 AM CDT [facility] HGB 15.2 12.0 - 16.0 G/DL 12/10/2022 10:01 AM CDT [facility] HCT 47.2 38.0 - 48.0 % 12/10/2022 10:01 AM CDT [facility] MCV 90.6 81.0 - 99.0 FL 12/10/2022 10:01 AM CDT [facility] MCH 29.2 27.0 - 31.0 PG 12/10/2022 10:01 AM CDT [facility] MCHC 32.2 32.0 - 36.0 G/DL 12/10/2022 10:01 AM CDT [facility] RDW 13.0 11.5 - 14.5 % 12/10/2022 10:01 AM CDT [facility] PLT 336 130 - 400 x10'3/uL 12/10/2022 10:01 AM CDT [facility] MPV 9.7 9.3 - 12.2 FL 12/10/2022 10:01 AM [facility] DIFFERENTIAL TYPE AUTOMATED DIFFERENTIAL 12/10/2022 10:01 AM T [facility] NEUTROPHILS % 53.7 % 12/10/2022 10:01 AM T [facility] LYMPHOCYTES % 33.0 % 12/10/2022 10:01 AM T [facility] MONOCYTES % 9.5 % 12/10/2022 10:01 AM T [facility] EOSINOPHILS 2.5 % 12/10/2022 10:01 AM [facility] BASOPHILS 1.0 % 12/10/2022 10:01 AM T [facility] IMMATURE GRANS % 0.3 % 12/11/19 10:01 AM [facility] ABS. NEUTROPHILS TOTAL 4.73 1.80 - 7.70 x10'3/uL 12/10/2022 10:01 AM [facility] ABS. LYMPHOCYTES 2.91 1.00 - 4.80 x10'3/uL 12/10/2022 10:01 AM [facility] ABS. MONOCYTES 0.84 0.24 - 0.86 x10'3/uL 12/10/2022 10:01 AM [facility] ABS. EOSINOPHILS 0.22 0.04 - 0.36 x10'3/uL 12/10/2022 10:01 AM [facility] ABS. BASOPHILS 0.09(H) 0.01 - 0.08 x10'3/uL 12/10/2022 10:01 AM [facility] ABS. 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
--- OUTSIDE RECORDS SUMMARY | 2024-06-08 08:17 | XMS_ITS | Encounter Summary ---
Author Organization [facility] Address [address] [place] [address]. [place] [address] [place] [address] Care Team Providers Care Deposit Refund Clerk Name Role Phone Unavailable Primary Care Provider Unavailabl e Reason for Visit * Reason Onset Date Comments Question 12/02/2022 Encounter Details Date Type Department Care Team (Late st Contact Info) Description 12/02/2022 Telephone [facility] Medical Group Multispecialty Care - [facility] 3 [facility], [facility] [address] [place] [address] Seble Bliss NP 3 [facility]. [facility] [address] [place] [address] Question Social History Tobacco Use Types Packs/Day [...] is not convenient for her.[facility] in the [facility] area...then you can discuss setting up an appointment with us too. Thank you documented in this encounter Plan of Treatment Upcoming Encounters Date Type Department Care Team (Late st Contact Info) Description 08/21/2024 4:00 PM CDT Office Visit [facility] Medical Group Family Medicine - [place] [address] [place] [phone] Charla Campos PA-C [address] [place] [address] documented as of this encounter Visit Diagnoses Not on filedocumented in this encounter Additional Health Concerns Assessment Noted Time PHQ-9 Depression Total Score: 3 07/30/19 22 1:18 PM REPAIR COIL WINDER documented as of this encounter
--- OUTSIDE RECORDS SUMMARY | 2024-06-08 08:18 | XMS_ITS | Encounter Summary ---
Author Organization [facility] Address [address] [place] [address]. [place], [place] [address] [place] [address] Care Team Providers Care Computer Numerical Control Programmer Name Role Phone Unavailable Primary Care Provider [...] [facility] Family Medicine - [place] [phone] Charla Campos PA-C [address] [place] [phone] documented as of this encounter Visit Diagnoses Not on filedocumented in this encounter Additional Health Concerns Assessment Noted Time PHQ-9 Depression Total Score: 3 07/30/19 22 1:18 PM BEAD FILLER documented as of this encounter
--- OUTSIDE RECORDS SUMMARY | 2024-06-08 08:18 | XMS_ITS | Encounter Summary ---
Author Organization [facility] Address [address] [place] [address]. [place] [address] [place] [address] Care Team Providers Care Linseed Cake Trimmer Name Role Phone Unavailable Primary Care Provider Unavailabl e Reason for Visit * Reason Onset Date Comments Information 11/07/2022 Encounter Details Date Type Department Care Team (Late st Contact Info) Description 11/07/2022 Telephone [facility] Medical Group Multispecialty Care - [facility] 3 [facility], [address] [place] [address] Seble Bliss NP 3 [facility]. [address] [place] [address] Information Social History Tobacco Use Types Packs/Day [...] [facility] Medical Group Family Medicine - [place] [phone] Charla Campos PA-C [address] [place] [address] documented as of this encounter Visit Diagnoses Not on filedocumented in this encounter Additional Health Concerns Assessment Noted Time PHQ-9 Depression Total Score: 3 07/30/19 22 1:18 PM AUTO SERVICE DISPATCHER documented as of this encounter
--- OUTSIDE RECORDS SUMMARY | 2024-06-08 08:18 | XMS_ITS | Encounter Summary ---
Author Organization [facility] Address [facility]6 [facility]. [place], [place] [address] [place] [address] Care Team Providers Care Application Project Leader Name Role Phone Unavailable Primary Care Provider Unavailabl e Reason for Visit * Reason Comments Follow Up Medication refill (H x of Ulcerative pancolitis with rectal bleeding) * Consultation/Treatment (Routine) - Closed Specialty Diagnoses / Procedures Referred By Contact Referred To Contact NURSE PRACTITIONER / GASTROENTEROLOGY Diagnoses Medication refill Procedures FOLLOW UP Seble Bliss NP 3 [facility]. [address] [address] Phone: tel: fax: Seble Bliss NP 3 [facility]. [address] [address] Phone: tel:[phone] fax:[phone] Referral ID Status Reason Start Date Expiration Date Visits Re quested Visits Authorized [id number] Closed 08/15/2022 08/16/2023 100 100 Encounter Details Date Type Department Care Team (Latest Contact Info) Description 08/15/2022 3:00 PM CDT Office Visit [facility] Medical Group Multispecialty Care - [address], [address] [place] [address] Seble Bliss NP [address] [place] [phone] Follow Up (Medication refill (Hx of Ulcerative pancolitis with rectal bleeding)) Social History Tobacco Use Types Packs/Day Years [...] Sign Reading Time Taken Comments Blood Pressure 139/80 08/15/2022 3:02 PM CDT Pulse 102 08/15/2022 3:02 PM CDT Temperature 36.9 ??C (98.5 ??F) 08/15/2022 3:02 PM CD T Respiratory Rate 22 08/15/2022 3:02 PM CDT Oxygen Saturation 98% 08/15/2022 3:02 PM CDT Inhaled Oxygen Concentration - - Weight 145.6 kg (321 lb) 08/15/2022 3:02 PM CDT Height 179.1 cm (5' 10.5 ) 08/15/2022 3:02 PM CD T Body Mass Index 45.41 08/15/2022 3:02 PM CDT documented in this encounter Progress Notes * Seble Bliss, EMERGENCY VEHICLE TECHNICIAN - 08/15/2022 3:00 PM CDT Images from the original note were not included. Gastroenterology Established Visit Reason for Visit: Follow Up (Medication refill (Hx of Ulcerative pancolitis with rectal bleeding)) History of Present Illness: Paige Zavaleta is a 27-year-old female being seen in clinic for referral by MONIK FONSECA MD for one year follow up on ulcerative colitis. Last ,colonoscopy on 08/24/2020 with severe pancolitis. Currently on azathioprine 50 mg daily, Infliximab 5 mg /kg IV every 2 months. Pt failed Humira in the past. Pancolitis was originally diagnosed 06/28/2019. Pt has been doing very well and notes shewould like to remain on azathioprine while on infusion out of fear of having complications. Her only possible GI concern is slight incomplete defecations she denies her stools are hard but does not feel like she is able to completely eliminate each day. We did talk about use of MiraLAX small portions to see if this will help her with a more completed stool. Patient is somewhat hesitant about thisbut will consider use. Bowel habits are daily soft and formed. Noted some wt gain of 40 pounds in the past year. Denies melena, hematochezia, diarrhea, constipation, abdominal pain, N/V, dysphagia, or heartburn. Denies anyrecent infections but has had Covid x2, congesttion, runny nose. No fevers or chills. Appetite appropriate. No unexplained weight loss. Periods are normal. Prior abdominal surgeries: none. No prior h/o hepatitis infection, + 4 prior tattoos, no prior blood transfusions, no drug use. 5 per week ETOH use. No smoking history. No vaping and marijuana use. Pt is now engage but no date set for the wedding. No family history of GI malignancies, Celiac disease, IBD, or colon polyps. PGF colon cancer possibly. NSAID/Blood thinner use: rare Ibuprofen and Aleve PRN for headaches or back aches. EGD: none Colonoscopy: 08/24/[address] Johns with dx of pancolitis. 06/28/[address] Omar Johns ROS: Review of Systems Constitutional: Negative for chills, fever and malaise/fatigue. Negative for decreased appetite HENT: Negative for sore throat. Respiratory: Negative for shortness of breath. Cardiovascular: Negative for chest pain and leg swelling. Gastrointestinal: Refer to HPI. Endo/Heme/Allergies: Does not bruise/bleed easily. Medications: Current Outpatient Medications: ??? azaTHIOprine (IMURAN) 50 MG tablet, Take 1 tablet (50 mg total) by mouth daily., Disp: 90 tablet, Rfl: 3 ??? desogestrel-ethinyl estradiol (AZURETTE) 0.15-0.02/0.01 MG (16/10) tablet, Take 1 tablet by mouth daily., Disp: 84 tablet, Rfl: 1 ??? inFLIXimab-dyyb 100 MG injection, Inject 70 mLs (700 mg total) into the vein see administrationinstructions. 5 mg/kg per dose IV every 8 weeks for 12 months., Disp: 7 each, Rfl: 5 ??? montelukast (SINGULAIR) 10 MG tablet, TAKE 1 TABLET BY MOUTH AT BEDTIME, Disp: 90 tablet, Rfl: 2 ??? polyethylene glycol (GLYCOLAX) 17 GM/SCOOP powder, Take 17 g by mouth 2 (two) times daily as needed. one scoop dissolved in 8 ounces of fluid. Goal is to have 1 soft bowel movement without straining at least every other day., Disp: 238 g, Rfl: 0 Allergies: No Known Allergies Medical History: Past Medical History: Diagnosis Date ??? Seizures (CMS/HCC) ??? Ulcerative colitis (CMS/HCC) 06/28/2019 Dr. Omar Johns moderate to severe reed ulcerative colitis Surgical History: Past Surgical History: Procedure Laterality Date ??? COLONOSCOPY N/A 06/28/2019 COLONOSCOPY WITH BIOPSIES performed by Omar Johns MD at [facility] OR ulcerative pancolitis ??? COLONOSCOPY N/A 08/24/2020 COLONOSCOPY WITH COLON BIOPSY VIA LARGE COLD FORCEP AND STOOL SAMPLE FOR CDIFF performed by Omar Hawk MD at [facility] ??? TONSILLECTOMY Social History: Social History Tobacco Use ??? Smoking status: Never ??? Smokeless tobacco: Never Vaping Use ??? Vaping Use: Never used Substance Use Topics ??? Alcohol use: Yes Comment: occasional ??? Drug use: No Family History: No family history on file. PE: Filed Vitals: 08/15/22 1502 BP: 139/80 Pulse: (!) 102 Resp: 22 Temp: 98.5 ??F (36.9 ??C) TempSrc: Temporal SpO2: 98% Weight: (!) 145.6 kg (321 lb) Height: 5' 10.5 (1.791 m) Wt Readings from Last 1 Encounters: 08/15/22 (!) 145.6 kg (321 lb) Physical Exam Constitutional: General: She is not in acute distress. Appearance: Normal appearance. She is well-developed. She is not ill-appearing. Cardiovascular: Rate and Rhythm: Normal rate and regular rhythm. Pulmonary: Effort: No respiratory distress. Breath sounds: Normal breath sounds. Abdominal: General: Bowel sounds are normal. There [...] and Affect: Mood normal. Behavior: Behavior normal. Labs Reviewed: Lab Results Component Value Date WBC 8.4 12/29/2020 RBC 5.00 12/29/2020 HGB 13.2 12/29/2020 HCT 42.9 12/29/2020 RDW 12.9 07/23/2020 PLT 316 12/29/2020 NA 136 12/29/2020 K 4.3 12/29/2020 CL 106 12/29/2020 AGAP 8 12/29/2020 GLU 91 12/29/2020 BUN 9 12/29/2020 CR 0.72 12/29/2020 GFRNON 100 12/29/2020 GFR 122 12/29/2020 CA 9.1 12/29/2020 ALB 4.0 12/29/2020 ALT 4 (L) 12/29/2020 AST 11 (L) 12/29/2020 ALKP 52 12/29/2020 Endoscopic Results Reviewed: 08/24/[address] Omar Johns. Findings: Severe active colitis. Possibility of C. difficile colitis as well as active UC. ? Plan: Check biopsies and stool for C. difficile. We will empirically start her on vancomycin. ?? Final Pathologic Diagnosis COLON, LEFT, BIOPSY: ?MODERATE ACTIVE COLITIS ?NEGATIVE FOR DYSPLASIA ?? 06/28/2019 colonoscopy Findings: Diffuse moderate severe pancolitis likely ulcerative colitis. Extensive biopsies taken. Will initiate prednisone therapy today. Patient will be checked for TP MT level, TB QuantiFERON gold levels as well as a hepatitis B. She should be started on biological agents such as Humira plus immunomodulators. We will need to see her back in the office. ? Plan: Await biopsies. Start prednisone 40 mg daily to taper over a month. She will likely benefit from Humira plus immunosuppressant. Diagnoses/Impression: 1. Ulcerative pancolitis without complication (CMS/HCC) - CBC W/DIFF AUTOMATED; Future - COMPREHENSIVE METABOLIC PANEL; Future - TBGOLD-TUBERCULOSIS TST CELL MEDIATED IMMUNITY; Future - azaTHIOprine (IMURAN) 50 MG tablet; Take 1 tablet (50 mg total) by mouth daily. Dispense: 90 tablet; Refill: 3 2. Constipation, unspecified constipation type - polyethylene glycol (GLYCOLAX) 17 GM/SCOOP powder; Take 17 g by mouth 2 (two) times daily as needed. one scoop dissolved in 8 ounces of fluid. Goal is to have 1 soft bowel movement without straining at least every other day. Dispense: 238 g; Refill: 0 Recommendations and Plan: ?? CBC, CMP and TB labs are due now ?? Currently on azathioprine 50 mg daily, Infliximab 5 mg /kg IV every 2 months. Patient understands the risk of combo treatment and is very hesitant to discontinue the azathioprine at this point. ?? Miralax PRN for constipation. To start out slowly as not to start a flare. ?? Screening colonoscopy due to ulcerative colitis will begin in 2027, performed every 2 years at current standards. Informed patient she may need diagnostic colonoscopy in the interim. ?? It is recommended to consume 20-35 grams of fiber per day and at least 64 ounces/2 liters of water per day. ?? All questions answered ?? 12 month follow up appt on IBD and medication refill ?? Comorbid Conditions: ulcerative colitis, seizure disorder, morbid obesity Orders placed this encounter: Orders Placed This Encounter ??? CBC W/DIFF AUTOMATED ??? COMPREHENSIVE METABOLIC PANEL ??? TBGOLD-TUBERCULOSIS TST CELL MEDIATED IMMUNITY ??? DISCONTD: amoxicillin (AMOXIL) 500 MG capsule ??? azaTHIOprine (IMURAN) 50 MG tablet ??? DISCONTD: polyethylene glycol (GLYCOLAX) 17 GM/SCOOP powder ??? polyethylene glycol (GLYCOLAX) 17 GM/SCOOP powder Seble Bliss NP 08/15/2022 Gastroenterology Portions of this note were dictated using adQ speech recognition software. Occasional wrong wordor sound-alike substitutions may have occurred due to the inherent limitations of voice recognition software. Please read the chart carefully and recognize, using context, where the substitutions may have occurred. documented in this encounter Plan of Treatment Upcoming Encounters Date Type Department Care Team (Late st Contact Info) Description 08/21/2024 4:00 PM CDT Office Visit [facility] Medical Group Family Medicine - [place] [phone] Charla Campos PA-C [address] [place] [address] documented as of this encounter Results * TBGOLD-TUBERCULOSIS TST CELL MEDIATED IMMUNITY (12/10/2022 9:40 AM CDT) TB1 AG MINUS NIL 0.01 IU/ML 12/13/19 10:36 AM CDT [facility] TB2 AG MINUS NIL 0.00 IU/ML 12/13/19 10:36 AM CDT [facility] TB QUANTIFERON NEGATIVE NEGATIVE 12/12/2022 10:36 AM CDT [facility] TB INTERPRETATION M. tuberculosis infection unlikely but cannot be excluded especially when any illness is consistent with TB disease and/or likelihood of progression to disease is increased. ?? In patients at high risk to M. tuberculosis infection, a second test should be considered. 12/12/2022 10:36 AM CDT [facility] 12/10/2022 9:40 AM CDT Seble Bliss NP LABORATORY Final Result [facility] [address] [place] [address], [id number] documented in this encounter Visit Diagnoses Diagnosis Ulcerative pancolitis without complication (CMS/HCC HHS/HCC)- Primary Constipation, unspecified constipation type documented in this encounter Additional Health Concerns Assessment Noted Time PHQ-9 Depression Total Score: 3 07/30/19 22 1:18 PM HIGH SCHOOL PHYSICAL EDUCATION TEACHER documented as of this encounter
--- OUTSIDE RECORDS SUMMARY | 2024-06-08 08:18 | XMS_ITS | Encounter Summary ---
Author Organization [facility] Address [facility] [address] [place] [address] Care Team Providers Care Cancer Registry Coordinator Name Role Phone Unavailable Primary Care Provider Unavailabl e Reason for Visit * Reason Onset Date Comments Information 11/11/2022 Encounter Details Date Type Department Care Team (Late st Contact Info) Description 11/11/2022 Telephone [facility] Medical Group Multispecialty Care - [facility] 3 [facility], [address] [place] [address] Seble Bliss NP 3 [facility]. [address] [place] [address] Information Social History Tobacco Use Types Packs/Day [...] [facility] Family Medicine - [place] [phone] Charla Campos PA-C [address] [place] [address] documented as of this encounter Visit Diagnoses Not on filedocumented in this encounter Additional Health Concerns Assessment Noted Time PHQ-9 Depression Total Score: 3 07/30/19 22 1:18 PM ELECTRICAL SYSTEM SPECIALIST documented as of this encounter
--- OUTSIDE RECORDS SUMMARY | 2024-06-08 08:18 | XMS_ITS | Encounter Summary ---
Author Organization [facility] Address [address] [place] [address]. [place], [place] [address] [place] [address] Care Team Providers Care Paperboard Boxes Estimator Name Role Phone Unavailable Primary Care Provider [...] Recorded In the last 10 days, have gsaper u been in contact with someone who was confirmed or suspected to have Coronavirus/COVID-19? No / Unsure 08/15/2022 2:48 PM CDT documented as of this encounter Plan of Treatment Upcoming Encounters Date Type Department Care Team (Late st Contact Info) Description 08/21/2024 4:00 PM CDT Office Visit [facility] Medical Group Family Medicine - [place] [phone] Charla Campos PA-C [address] [place] [phone] documented as of this encounter Visit Diagnoses Not on filedocumented in this encounter Additional Health Concerns Assessment Noted Time PHQ-9 Depression Total Score: 3 07/30/19 22 1:18 PM TEMPLATE INSPECTOR documented as of this encounter
--- OUTSIDE RECORDS SUMMARY | 2024-06-08 08:18 | XMS_ITS | Encounter Summary ---
Author Organization [facility] Address [address] [place] [address]. [place] [address] [place] [address] Care Team Providers Care Revenue Stamp Cutter Name Role Phone Unavailable Primary Care Provider Unavailabl e Reason for Visit * Reason Onset Date Comments Lab Order 11/07/2022 Encounter Details Date Type Department Care Team (Late st Contact Info) Description 11/07/2022 Telephone [facility] Medical Group Multispecialty Care - [facility] [address] [facility], [address] [place] [address] Seble Bliss NP 3 [facility]. [address] [place] [address] Lab Order Social History Tobacco Use Types [...] [facility]ICAL [facility] Medical Group Family Medicine - [place] [address] [place] [phone] Charla Campos PA-C 100 [facility] [place] [address] documented as of this encounter Visit Diagnoses Not on filedocumented in this encounter Additional Health Concerns Assessment Noted Time PHQ-9 Depression Total Score: 3 07/30/19 22 1:18 PM AUDIO VISUAL ARTS DIRECTOR documented as of this encounter
--- OUTSIDE RECORDS SUMMARY | 2024-06-08 08:18 | XMS_ITS | Encounter Summary ---
Author Organization [facility] Address [address] [place] [address]. [place], [place] [address] [place] [address] Care Team Providers Care Supply Chain Engineer Name Role Phone Unavailable Primary Care Provider Unavailabl e Reason for Visit * Reason Comments Physical annual Encounter Details Date Type Department Care Team ([facility] st Contact Info) Description 05/17/2022 4:15 PM HOUSEHOLD COORDINATOR Office Visit [facility] [address] [facility] [address] [place] [address] Monik Fonseca MD [address] [facility] [address] [place] [address] Physical (annual) Social History Tobacco [...] Comments Blood Pressure 108/80 05/17/2022 4:16 PM HOUSEHOLD COORDINATOR Pulse 100 05/17/2022 4:16 PM HOUSEHOLD COORDINATOR Temperature - - Respiratory Rate - - Oxygen Saturation - - Inhaled Oxygen Concentration - - Weight 140.6 kg (310 lb) 05/17/2022 4:16 PM HOUSEHOLD COORDINATOR Height 179.1 cm (5' 10.5 ) 05/17/2022 4:16 PM CS T Body Mass Index 43.85 05/17/2022 4:16 PM HOUSEHOLD COORDINATOR documented in this encounter Progress Notes * [...] [facility] OR ulcerative pancolitis ??? COLONOSCOPY N/A 08/24/2020 COLONOSCOPY WITH COLON BIOPSY VIA LARGE COLD FORCEP AND STOOL SAMPLE FOR CDIFF performed by Omar Hawk MD at [facility] GI ??? TONSILLECTOMY Social History Socioeconomic History [...] ref. provider found PCP: MONIK FONSECA MD EHOLD COORDINATOR documented in this encounter Plan of Treatment Upcoming Encounters Date Type Department Care Team (Late st Contact Info) Description 08/21/2024 4:00 PM CDT Office Visit [facility] Medical Group Family Medicine - [place] [address] [place] [phone] Charla Campos PA-C [address] [place] [address] documented as of this encounter Visit Diagnoses Diagnosis Ulcerative pancolitis without complication ([facility])- Primary Routine general medical examination at a health care facility Morbid obesity ([facility]) Morbid obesity documented in this encounter Additional Health Concerns Assessment Noted Time PHQ-9 Depression Total Score: 3 07/30/19 22 1:18 PM HOUSEHOLD COORDINATOR documented as of this encounter
--- OUTSIDE RECORDS SUMMARY | 2024-06-08 08:18 | XMS_ITS | Encounter Summary ---
Author Organization [facility] Address [facility] [facility] [address] [place] [address] Care Team Providers Care Logistics Loss Prevention Manager Name Role Phone Unavailable Primary Care Provider Unavailabl e Encounter Details Date Type Department Care Team (Late st Contact Info) Description 10/31/2022 Orders Only [facility] Medical Group Multispecialty Care - [facility] 3 [facility], [address] [place] [address] Maria T Serrano NP 3 [facility] [address] [place] [address] Social History Tobacco Use Types Packs/Day Years [...] Description 08/21/2024 4:00 PM CDT Office Visit [facility] Medical Group Family Medicine - [place] [address] [place] [phone] Charla Campos PA-C [address] [facility] [place] [address] documented as of this encounter Visit Diagnoses Not on filedocumented in this encounter Additional Health Concerns Assessment Noted Time PHQ-9 Depression Total Score: 3 07/30/19 22 1:18 PM MAXILLOFACIAL SURGEON documented as of this encounter
--- OUTSIDE RECORDS SUMMARY | 2024-06-08 08:18 | XMS_ITS | Encounter Summary ---
Author Organization [facility] Address [address] [place] [address]. [place], [place] [address] [place] [address] Care Team Providers Care Shoe Dyer Name Role Phone Unavailable Primary Care Provider [...] [facility] Medical Group Family Medicine - [place] [address] [place] [phone] Charla Campos PA-C [address] [place], [place] [phone] documented as of this encounter Visit Diagnoses Not on filedocumented in this encounter Additional Health Concerns Assessment Noted Time PHQ-9 Depression Total Score: 3 07/30/19 22 1:18 PM MANPOWER DEVELOPMENT SPECIALIST MANAGER documented as of this encounter
--- OUTSIDE RECORDS SUMMARY | 2024-06-08 08:18 | XMS_ITS | Encounter Summary ---
Author Organization [facility] Address [address] [place] [address]. [place] [address] [place] [address] Care Team Providers Care Knot Tier Name Role Phone Unavailable Primary Care Provider Unavailabl e Reason for Visit * Reason Onset Date Comments Orders 08/16/2022 Encounter Details Date Type Department Care Team (Late st Contact Info) Description 08/16/2022 Telephone [facility] Multispecialty Care - [facility] 3 [facility], [address] [place] [address] Seble Bliss NP 3 [facility]. [address] [place] [address] Orders Social History Tobacco Use Types Packs/Day [...] her Inflectra . Please call to discuss [phone] * Xochitl Escobedo - 08/16/2022 3:30 PM CDT Order will be faxed. * Priscilla [place] - 08/16/2022 11:58 AM CDT Radha [facility] is calling to request new order on this patient since the other one . Call back number [phone] documented in this encounter Plan of Treatment Upcoming Encounters Date Type Department Care Team (Late st Contact Info) Description 08/21/2024 4:00 PM CDT Office Visit [facility] Medical Group Family Medicine - [place] [phone] Charla Campos PA-C [address] [place] [address] documented as of this encounter Visit Diagnoses Not on filedocumented in this encounter Additional Health Concerns Assessment Noted Time PHQ-9 Depression Total Score: 3 07/30/19 22 1:18 PM BLACK TOP RAKER documented as of this encounter
--- OUTSIDE RECORDS SUMMARY | 2024-06-08 08:18 | XMS_ITS | Encounter Summary ---
Author Organization [facility] Address [address] [place] [address]. [place], [place] [address] [place] [address] Care Team Providers Care Stemmer Machine Name Role Phone Unavailable Primary Care [...] Description 08/21/2024 4:00 PM CDT Office Visit [facility] Medical Group Family Medicine - [place] [phone] Charla Campos PA-C [address] [place] [phone] documented as of this encounter Visit Diagnoses Not on filedocumented in this encounter Additional Health Concerns Assessment Noted Time PHQ-9 Depression Total Score: 3 07/30/19 22 1:18 PM SALES ORDER ADMINISTRATOR documented as of this encounter
--- OUTSIDE RECORDS SUMMARY | 2024-06-08 08:18 | XMS_ITS | Encounter Summary ---
Author Organization [facility] Address [address] [place] [address]. [place], [place] [address] [place] [address] Care Team Providers Care Learning Support Assistant Name Role Phone Unavailable Primary Care [...] [facility] Family Medicine - [place] 100 [place] [phone] Charla Campos PA-C 100 [place] [address] documented as of this encounter Visit Diagnoses Not on filedocumented in this encounter Additional Health Concerns Assessment Noted Time PHQ-9 Depression Total Score: 3 07/30/19 22 1:18 PM SERVICE CREW SUPERVISOR documented as of this encounter
--- OUTSIDE RECORDS SUMMARY | 2024-06-08 08:18 | XMS_ITS | Encounter Summary ---
Author Organization [facility] Address [address] [place] [address]. [place], [place] [address] [place] [address] Care Team Providers Care Grounds Maintenance Worker Name Role Phone Unavailable Primary Care [...] [facility] Family Medicine - [place] 100 [place] [phone] Charla Campos PA-C 100 [place] [address] documented as of this encounter Visit Diagnoses Not on filedocumented in this encounter Additional Health Concerns Assessment Noted Time PHQ-9 Depression Total Score: 3 07/30/19 22 1:18 PM POULTRY BONER documented as of this encounter
--- OUTSIDE RECORDS SUMMARY | 2024-06-08 08:18 | XMS_ITS | Encounter Summary ---
Author Organization [facility] Address [address] [place] [address]. [place] [address] [place] [address] Care Team Providers Care Residential Child Care Counselor Name Role Phone Unavailable Primary Care Provider Unavailabl e Reason for Visit * Reason Onset Date Comments Medication 07/13/2022 Encounter Details Date Type Department Care Team (Late st Contact Info) Description 07/13/2022 Telephone [facility] Medical Group Multispecialty Care - [facility] 3 [facility], [address] [place] [address] Maria T Serrano NP 3 [facility] [address] [place] [address] Medication Social History Tobacco Use Types Packs/Day [...] as of this encounter Progress Notes * Caridad Azul - 07/14/2022 2:39 PM CST Patient returned your call. Please give her a call back ESTATE APPRAISER SUPERVISOR * Xochitl Escobedo - 07/14/2022 2:34 PM CST LVM for pt to give the office a call to schedule an appt. ESTATE APPRAISER SUPERVISOR * Seble Ratliff NP - 07/13/2022 10:57 AM CSTAddended by: SEBLE RATLIFF on: 07/13/2022 10:57 AM Modules accepted: Orders ESTATE APPRAISER SUPERVISOR * Seble Ratliff NP - 07/13/2022 10:56 AM CST Patient will need follow-up visit within the next 90 days for continued medication renewal. Patientis an IBD patient needs an annual visit. I did give her 90 days to accommodate this. Thank you, Seble KEITH NP ESTATE APPRAISER SUPERVISOR * Xochitl Escobedo - 07/13/2022 10:53 AM CST lv 07/29/2021 ESTATE APPRAISER SUPERVISOR * Sailaja Packer - 07/13/2022 10:47 AM CST Pt needs refill on azathioprine ESTATE APPRAISER SUPERVISOR documented in this encounter Plan of Treatment Upcoming Encounters Date Type Department Care Team (Late st Contact Info) Description 08/21/2024 4:00 PM CDT Office Visit [facility] Medical Group Family Medicine - [place] 100 [place] [phone] Charla Campos PA-C [address] [place] [address] [phone] documented as of this encounter Visit Diagnoses Diagnosis Ulcerative pancolitis without complication (CMS/HCC HHS/HCC) documented in this encounter Additional Health Concerns Assessment Noted Time PHQ-9 Depression Total Score: 3 07/30/19 22 1:18 PM REAL ESTATE APPRAISER SUPERVISOR documented as of this encounter
--- OUTSIDE RECORDS SUMMARY | 2024-06-08 08:19 | XMS_ITS | Encounter Summary ---
Author Organization [facility] Address [address] [place] [address]. [place], [place] [address] [place] [address] Care Team Providers Care Assistant Finance Manager Name Role Phone Unavailable Primary Care [...] Coronavirus/COVID-19? No / Unsure 07/27/2021 6:56 AM COMMUNITY LIFE DIRECTOR documented as of this encounter Plan of Treatment Upcoming Encounters Date Type Department Care Team (Late st Contact Info) Description 08/21/2024 4:00 PM CDT Office Visit [facility] Medical Group Family Medicine - [place] [phone] Charla Campos PA-C [address] [place] [address] documented as of this encounter Visit Diagnoses Not on filedocumented in this encounter
--- OUTSIDE RECORDS SUMMARY | 2024-06-08 08:19 | XMS_ITS | Encounter Summary ---
Author Organization [facility] Address [address] [place] [address]. [place], [place] [address] [place] [address] Care Team Providers Care Electronic Game Developer Name Role Phone Unavailable Primary Care Provider [...] Coronavirus/COVID-19? No / Unsure 07/21/2021 7:18 AM CONSUMER LOAN OFFICER documented as of this encounter Plan of Treatment Upcoming Encounters Date Type Department Care Team (Late st Contact Info) Description 08/21/2024 4:00 PM CDT Office Visit [facility] Medical Group Family Medicine - [place] [phone] Charla Campos PA-C [address] [place] [address] documented as of this encounter Visit Diagnoses Not on filedocumented in this encounter
--- OUTSIDE RECORDS SUMMARY | 2024-06-08 08:19 | XMS_ITS | Encounter Summary ---
Author Organization [facility] Address [address] [place] [address]. [place], [place] [address] [place] [address] Care Team Providers Care Rotary Drier Feeder Name Role Phone Unavailable Primary Care Provider [...] Coronavirus/COVID-19? No / Unsure 07/29/2021 9:45 AM BEE FARMER documented as of this encounter Plan of Treatment Upcoming Encounters Date Type Department Care Team (Late st Contact Info) Description 08/21/2024 4:00 PM CDT Office Visit [facility] Medical Group Family Medicine - [place] [phone] Charla Campos PA-C [address] [place] [address] documented as of this encounter Visit Diagnoses Not on filedocumented in this encounter Additional Health Concerns Assessment Noted Time PHQ-9 Depression Total Score: 3 07/30/19 22 1:18 PM BEE FARMER documented as of this encounter
--- OUTSIDE RECORDS SUMMARY | 2024-06-08 08:19 | XMS_ITS | Encounter Summary ---
Author Organization [facility] Address Critical access hospital6 [facility] [place] [address] [place] [address] Care Team Providers Care Product Design Manager Name Role Phone Unavailable Primary Care Provider Unavailabl e Encounter Details Date Type Department Care Team ([facility] st Contact Info) Description 08/11/2021 Orders Only [facility] [address] [facility] [address] [place] [address] Karson Payne MD [address] [facility] [address] [place] [address] Social History Tobacco Use Types [...] Frequency of Binge Drinking Not on file 1201/2019 PHQ-2 Answer Date Recorded PHQ-2 Score - [...] Coronavirus/COVID-19? No / Unsure 07/29/2021 9:45 AM END WORKER documented as of this encounter Plan of Treatment Upcoming Encounters Date Type Department Care Team (Late st Contact Info) Description 08/21/2024 4:00 PM CDT Office Visit [facility] Medical Group Family Medicine - [place] [phone] Charla Campos PA-C 100 [place] [address] documented as of this encounter Visit Diagnoses Not on filedocumented in this encounter Additional Health Concerns Assessment Noted Time PHQ-9 Depression Total Score: 3 07/30/19 22 1:18 PM END WORKER documented as of this encounter
--- OUTSIDE RECORDS SUMMARY | 2024-06-08 08:19 | XMS_ITS | Encounter Summary ---
Author Organization [facility] Address [facility] [place] [address] [place] [address] Care Team Providers Care Children Counselor Name Role Phone Unavailable Primary Care Provider Unavailabl e Reason for Visit * Reason Onset Date Comments Pre-authorization 06/14/2021 re: meds Encounter Details Date Type Department Care Team (Late st Contact Info) Description 06/14/2021 Telephone [facility] Medical Group Multispecialty Care - [facility] 3 [facility], [address] [place] [address] Seble Bliss NP 3 [facility]. [address] [place] [address] Pre-authorization (re: meds) Social History Tobacco Use [...] COVID-19? No / Unsure 05/19/2021 11:22 AM FUNCTIONAL DIRECTOR documented as of this encounter Progress Notes * Priscilla [place] - 06/18/2021 1:12 PM CST BC/BS called to inform Dr. Johns office that they will be calling the office closer to 07/14/21 when the infusion is scheduled. TIONAL DIRECTOR * Xochitl Escobedo - 06/14/2021 10:02 AM CST Spoke with patient she was informed that [facility] is closed for the . We will be reaching out tomorrow to get an updated auth for Inflectra. TIONAL DIRECTOR * Sailaja Packer - 06/14/2021 8:22 AM CST Ins co also called to f/u, xfer call to [place] TIONAL DIRECTOR * Sailaja Packer - 06/14/2021 7:49 AM CST Pt is calling to see if you got paperwork from ins co for her infusion. This would be for pre auth.Please f/u with pt. TIONAL DIRECTOR documented in this encounter Plan of Treatment Upcoming Encounters Date Type Department Care Team (Late st Contact Info) Description 08/21/2024 4:00 PM CDT Office Visit [facility] Medical Group Family Medicine - [place] [phone] Charla Campos PA-C [address] [place] [address] documented as of this encounter Visit Diagnoses Not on filedocumented in this encounter
--- OUTSIDE RECORDS SUMMARY | 2024-06-08 08:19 | XMS_ITS | Encounter Summary ---
Author Organization [facility] Address [facility]6 [facility] [place] [address] [place] [address] Care Team Providers Care Dance Instructor Name Role Phone Unavailable Primary Care Provider Unavailabl e Reason for Visit * Reason Onset Date Comments Medication 11/17/2021 Encounter Details Date Type Department Care Team (Late st Contact Info) Description 11/17/2021 Telephone [facility] Medical Group Multispecialty Care - [facility] 3 [facility], [address] [place] [address] Seble Bliss NP 3 [facility]. [address] [place] [address] Medication Social History Tobacco Use Types Packs/Day [...] called today saying she is changing to [facility] in [facility]. She needs her agathioprine sent to [facility] for a 90 Day supply. Please call when completed. documented in this encounter Plan of Treatment Upcoming Encounters Date Type Department Care Team (Late st Contact Info) Description 08/21/2024 4:00 PM CDT Office Visit [facility] Medical Group Family Medicine - [place] 100 [place] [phone] Charla Campos PA-C 100 [place] [address] documented as of this encounter Visit Diagnoses Diagnosis Ulcerative pancolitis without complication (CMS/HCC HHS/HCC) documented in this encounter Additional Health Concerns Assessment Noted Time PHQ-9 Depression Total Score: 3 07/30/19 22 1:18 PM ENVIRONMENTAL LEAD documented as of this encounter
--- OUTSIDE RECORDS SUMMARY | 2024-06-08 08:19 | XMS_ITS | Encounter Summary ---
Author Organization [facility] Address [address] [place] [address]. [place] [address] [place] [address] Care Team Providers Care Ruby Rails Developer Name Role Phone Unavailable Primary Care Provider Unavailabl e Reason for Visit * Reason Onset Date Comments Follow Up Call 06/23/2021 Information 06/25/2021 Information 06/28/2021 Encounter Details Date Type Department Care Team (Late st Contact Info) Description 06/23/2021 Telephone [facility] Medical Group Multispecialty Care - [facility] 3 [facility], [address] [place] [phone] Omar Johns MD 3 [facility] [place] [address] [place] [address] Follow Up Call; Information; Information Social History [...] - 06/28/2021 10:50 AM CST Carly with [facility] called to speak with Xochitl regarding this patient. Transferred. ICULTURAL THERAPIST * Kasie Myers - 06/25/2021 11:07 AM CST [facility] called and stated that all referral form can be found on their website at [email or web address]. Please reach out to [facility] with any further questions or clarifications at [phone]. ICULTURAL THERAPIST * Xochitl Escobedo - 06/25/2021 10:12 AM CST Spoke wit Carly at [facility] she said moving forward patient must have Inflectra infusion treatment done at an outpatient facility versus the hospital. List of out patient facilities was given so patientcan look into. If there is no medical necessity to remain at hospital setting. Patient was informed. Patient called back she is going to use [facility] at [address] at [phone] or [phone]. Records and order will be faxed. Left voicemail message for Carly at [facility] informingher of which facility patient is going to. ICULTURAL THERAPIST * Kasie Myers - 06/25/2021 9:31 AM [...] Paige if there are any further questions. ICULTURAL THERAPIST * Xochitl Escobedo - 06/23/2021 2:00 PM CST LVM for pt to give the office a call back. ICULTURAL THERAPIST * Xochitl Escobedo - 06/23/2021 11:01 AM CST Returned Elizabeth call left a voicemail message. ICULTURAL THERAPIST * Lino [place] - 06/23/2021 10:52 AM CST Elizabeth Reyna from [facility] has requested to speak with Xochitl. She wants to discuss remaining authorizations needed for the pt. She says she is going to fax something listing the information needed to obtain authorization. She wants a call back to discuss at [phone] ICULTURAL THERAPIST documented in this encounter Plan of Treatment Upcoming Encounters Date Type Department Care Team (Late st Contact Info) Description 08/21/2024 4:00 PM CDT Office Visit [facility] Medical Group Family Medicine - [place] 100 [place] [phone] Charla Campos PA-C 100 [facility] [place] [address] documented as of this encounter Visit Diagnoses Not on filedocumented in this encounter
--- OUTSIDE RECORDS SUMMARY | 2024-06-08 08:19 | XMS_ITS | Encounter Summary ---
Author Organization [facility] Address [facility] [place] [address] [place] [address] Care Team Providers Care Biometrics Specialist Name Role Phone Unavailable Primary Care Provider Unavailabl e Encounter Details Date Type Department Care Team (Late st Contact Info) Description 06/08/2021 Orders Only [facility] Medical Group Multispecialty Care - [facility] 3 [facility], [address] [place] [phone] Seble Bliss, JORI 3 [facility]. [address] [place] [address] Social History Tobacco Use Types Packs/Day Years [...] COVID-19? No / Unsure 05/19/2021 11:22 AM INSPECTOR WREATH documented as of this encounter Plan of Treatment Upcoming Encounters Date Type Department Care Team (Late st Contact Info) Description 08/21/2024 4:00 PM CDT Office Visit [facility] Medical Group Family Medicine - [address] [phone] Charla Campos, PA-C [address] [place] [address] documented as of this encounter Visit Diagnoses Diagnosis Ulcerative pancolitis without complication (CMS/HCC HHS/HCC) documented in this encounter
--- OUTSIDE RECORDS SUMMARY | 2024-06-08 08:19 | XMS_ITS | Encounter Summary ---
Author Organization [facility] Address [address] [place] [address]. [place], [place] [address] [place] [address] Care Team Providers Care Candy Spreader Helper Name Role Phone Unavailable Primary Care [...] Coronavirus/COVID-19? No / Unsure 07/29/2021 9:45 AM LOWER SCHOOL SPANISH TEACHER documented as of this encounter Plan of Treatment Upcoming Encounters Date Type Department Care Team (Late st Contact Info) Description 08/21/2024 4:00 PM CDT Office Visit [facility] Medical Group Family Medicine - [place] [phone] Charla Campos PA-C [address] [place] [phone] documented as of this encounter Visit Diagnoses Not on filedocumented in this encounter Additional Health Concerns Assessment Noted Time PHQ-9 Depression Total Score: 3 07/30/19 22 1:18 PM LOWER SCHOOL SPANISH TEACHER documented as of this encounter
--- OUTSIDE RECORDS SUMMARY | 2024-06-08 08:19 | XMS_ITS | Encounter Summary ---
Author Organization [facility] Address [address] [place] [address]. [place] [address] [place] [address] Care Team Providers Care Ux Ui Designer Name Role Phone Unavailable Primary Care Provider Unavailabl e Reason for Visit * Reason Onset Date Comments Question 07/26/2021 Encounter Details Date Type Department Care Team (Late st Contact Info) Description 07/26/2021 Telephone [facility] Medical Group Multispecialty Care - [facility] 3 [facility], [address] [place] [address] Omar Johns MD 3 [facility] [address] [place] [address] Question Social History Tobacco Use Types Packs/Day [...] Coronavirus/COVID-19? No / Unsure 07/27/2021 6:56 AM ELECTRICIAN ELEVATOR MAINTENANCE documented as of this encounter Progress Notes * Xochitl Escobedo - 07/29/2021 8:53 AM CST Attempted to contact [facility] [place] no answer and mailbox is full TRICIAN ELEVATOR MAINTENANCE * Xochitl Escobedo - 07/27/2021 9:01 AM CST [facility]ed to contact [facility] voicemail is full. TRICIAN ELEVATOR MAINTENANCE * Xochitl Escobedo - 07/26/2021 12:55 PM CST Attempted to contact Brissa with [facility] no answer. TRICIAN ELEVATOR MAINTENANCE * Seble Bliss NP - 07/26/2021 8:37 [...] of them please forward me the phone. TRICIAN ELEVATOR MAINTENANCE * Araceli Sinclair - 07/26/2021 7:39 AM CST Brissa from [facility] called today wanting to know if there is anyway they can run a 1 tube quantiferium test instead of the 4 tubes. Please call Brissa to follow up [phone] TRICIAN ELEVATOR MAINTENANCE documented in this encounter Plan of Treatment Upcoming Encounters Date Type Department Care Team (Late st Contact Info) Description 08/21/2024 4:00 PM CDT Office Visit [facility] Medical Group Family Medicine - [place] [address] [place] [phone] Charla Campos PA-C [address] [place] [phone] documented as of this encounter Visit Diagnoses Not on filedocumented in this encounter
--- OUTSIDE RECORDS SUMMARY | 2024-06-08 08:19 | XMS_ITS | Encounter Summary ---
Author Organization [facility] Address [facility]6 [facility] [place] [address] [place] [address] Care Team Providers Care Animal Science Professor Name Role Phone Unavailable Primary Care Provider Unavailabl e Reason for Visit * Reason Onset Date Comments Appointment Request 06/28/2021 Encounter Details Date Type Department Care Team (Late st Contact Info) Description 06/28/2021 Telephone [facility] Medical Group Multispecialty Care - [address], [address] [place] [address] Omar Johns MD 3 [facility] [address] [place] [address] Appointment Request Social History Tobacco Use Types [...] and why. Please call patient to f/u SOFTWARE * Xochitl Escobedo - 06/28/2021 11:43 AM CST LVM for pt to give the office a call to schedule an appt. Per Seble patient is due for an office visit SOFTWARE documented in this encounter Plan of Treatment Upcoming Encounters Date Type Department Care Team (Late st Contact Info) Description 08/21/2024 4:00 PM CDT Office Visit [facility] Medical Group Family Medicine - [place] [phone] Charla Campos PA-C [address] [place] [address] documented as of this encounter Visit Diagnoses Not on filedocumented in this encounter
--- OUTSIDE RECORDS SUMMARY | 2024-06-08 08:19 | XMS_ITS | Encounter Summary ---
Author Organization [facility] Address [address] [place] [address]. [place] [address] [place] [address] Care Team Providers Care Cell Pourer Name Role Phone Unavailable Primary Care Provider Unavailabl e Reason for Visit * Reason Comments Infusion Therapy * Injection (Routine) - Pending Review Specialty Diagnoses / Procedures Referred By Yodit t Referred To Contact [facility] Infusion Therapy Diagnoses K51.0 Procedures INFLIXIMAB-DYYB 10MG IV SOLR (INFLECTRA) INTRAVENOUS INFUSION FOR THERAPY UP TO 1HR INTRAVENOUS INFUSION FOR THERAPY EA ADDL HR INFUSION [facility] [place] [address] Phone: tel: fax: [facility] [place] [address] Phone: tel: fax: Referral ID Status Reason Start Date Expiration Date V isits Requested Visits Authorized [id number] Pending Review 09/23/2020 15 15 Encounter Details Date Type Department Care Team (Late st Contact Info) Description 07/21/2021 8:00 AM AUTOMATION/CONTROLS MANAGER Treatment [facility] [place], [place] [address] Omar Johns MD [address] [place] [address] [id number] Infusion Therapy Social History Tobacco Use Types [...] Coronavirus/COVID-19? No / Unsure 07/21/2021 7:18 AM AUTOMATION/CONTROLS MANAGER documented as of this encounter Last Filed Vital Signs Vital Sign Reading Time Taken Comments Blood Pressure 125/85 07/21/2021 11:00 AM AUTOMATION/CONTROLS MANAGER Pulse 88 07/21/2021 11:00 AM AUTOMATION/CONTROLS MANAGER Temperature 36.7 ??C (98 ??F) 07/21/2021 8:54 AM AUTOMATION/CONTROLS MANAGER Respiratory Rate 20 07/21/2021 11:00 AM AUTOMATION/CONTROLS MANAGER Oxygen Saturation 99% 07/21/2021 11:00 AM AUTOMATION/CONTROLS MANAGER Inhaled Oxygen Concentration - - Weight 125.6 kg (277 lb) 07/21/2021 8:00 AM AUTOMATION/CONTROLS MANAGER Height 179.1 cm (5' 10.5 ) 07/21/2021 8:00 AM CS T Body Mass Index 39.18 07/21/2021 8:00 AM AUTOMATION/CONTROLS MANAGER documented in this encounter Progress Notes * Carly Moseley RN - 07/21/2021 8:00 AM CST Patient tolerated infusion well with out complications. Patient did not have a follow up appointment made due to the fact [facility] [place] [facility] MATION/CONTROLS MANAGER documented in this encounter Plan of Treatment Upcoming Encounters Date Type Department Care Team (Late st Contact Info) Description 08/21/2024 4:00 PM CDT Office Visit [facility] Medical Group Family Medicine - [place] [address] [place] [address] Charla Campos PA-C 100 [place], [place] [phone] documented as of this encounter Visit Diagnoses Diagnosis Ulcerative pancolitis without complication (CMS/HCC [facility])- Primary documented in this encounter Administered Medications [...] (CMS/HCC HHS/HCC) New Bag 07/21/2021 8:58 AM AUTOMATION/CONTROLS MANAGER 600 mg 125 mL/hr documented in this encounter
--- OUTSIDE RECORDS SUMMARY | 2024-06-08 08:19 | XMS_ITS | Encounter Summary ---
Author Organization [facility] Address [address] [place] [address]. [place], [place] [address] [place] [address] Care Team Providers Care Sports Development Officer Name Role Phone Unavailable Primary Care [...] COVID-19? No / Unsure 05/19/2021 11:22 AM LEATHER PATCHER documented as of this encounter Plan of Treatment Upcoming Encounters Date Type Department Care Team (Late st Contact Info) Description 08/21/2024 4:00 PM CDT Office Visit [facility] Medical Group Family Medicine - [place] [address] [place] [phone] Charla Campos PA-C [address] [place] [address] documented as of this encounter Visit Diagnoses Not on filedocumented in this encounter
--- OUTSIDE RECORDS SUMMARY | 2024-06-08 08:19 | XMS_ITS | Encounter Summary ---
Author Organization [facility] Address [facility] [place] [address] [place] [address] Care Team Providers Care Pneumatic Tester Name Role Phone Unavailable Primary Care Provider Unavailabl e Encounter Details Date Type Department Care Team (Late st Contact Info) Description 10/11/2021 Orders Only [facility] Medical Group Multispecialty Care - [facility] 3 [facility], [address] [place] [phone] Seble Bliss, JORI 3 [facility]. [address] [place] [address] Social History Tobacco Use Types Packs/Day Years [...] [facility]ICAL CENTER Medical Group Family Medicine - [place] 100 [place] [address] Charla Campos PA-C [address] [place] [address] documented as of this encounter Visit Diagnoses Not on filedocumented in this encounter Additional Health Concerns Assessment Noted Time PHQ-9 Depression Total Score: 3 07/30/19 22 1:18 PM DAIRY GRAZER documented as of this encounter
--- OUTSIDE RECORDS SUMMARY | 2024-06-08 08:19 | XMS_ITS | Encounter Summary ---
Author Organization [facility] Address [address] [place] [address]. [place], [place] [address] [place] [address] Care Team Providers Care Voice Instructor Name Role Phone Unavailable Primary Care [...] Office Visit [facility] Medical Group Family Medicine - [place] [address] [place] [phone] Charla Campos PA-C [address] [place] [address] documented as of this encounter Visit Diagnoses Not on filedocumented in this encounter
--- OUTSIDE RECORDS SUMMARY | 2024-06-08 08:19 | XMS_ITS | Encounter Summary ---
Author Organization [facility] Address [address] [place] [address]. [place], [place] [address] [place] [place] [address] Care Team Providers Care Electroplating Worker Name Role Phone Unavailable Primary Care [...] [facility]ICAL [facility] Medical Group Family Medicine - [place] [phone] Charla Campos PA-C [address] [place] [address] documented as of this encounter Visit Diagnoses Not on filedocumented in this encounter
--- OUTSIDE RECORDS SUMMARY | 2024-06-08 08:19 | XMS_ITS | Encounter Summary ---
Author Organization [facility] Address [address] [place] [address]. [place] [address] [place] [address] Care Team Providers Care Vp Marketing Name Role Phone Unavailable Primary Care Provider Unavailabl e Reason for Visit * Reason Comments Follow Up N/A * Consultation/Treatment (Routine) - Closed Specialty Diagnoses / Procedures Referred By Contact Referred To Contact NURSE PRACTITIONER / GASTROENTEROLOGY Diagnoses discuss colitis Procedures FOLLOW UP Karson Payne MD [address] [facility] 300 [place] [address] Phone: tel: fax: Seble Bliss NP 3 [facility]. [place] [address] [place] [address] Phone: tel:[phone] fax:[phone] Referral ID Status Reason Start Date Expiration Date Visits Re quested Visits Authorized [id number] Closed 07/23/2020 08/20/2021 100 100 Encounter Details Date Type Department Care Team (Late st Contact Info) Description 07/29/2021 1:00 PM FLUE TILE PRESS OPERATOR Office Visit [facility] Medical Group Multispecialty Care - [facility] 3 [facility] [address] [place] [address] Omar Johns MD 3 [facility] [address] [place] [address] Follow Up (N/A) Social History Tobacco Use [...] Coronavirus/COVID-19? No / Unsure 07/29/2021 9:45 AM FLUE TILE PRESS OPERATOR documented as of this encounter Last Filed Vital Signs Vital Sign Reading Time Taken Comments Blood Pressure 122/88 07/29/2021 1:16 PM FLUE TILE PRESS OPERATOR Pulse - - Temperature 36.7 ??C (98 ??F) 07/29/2021 1:16 PM FLUE TILE PRESS OPERATOR Respiratory Rate - - Oxygen Saturation - - Inhaled Oxygen Concentration - - Weight 126.6 kg (279 lb) 07/29/2021 1:16 PM FLUE TILE PRESS OPERATOR Height 179.1 cm (5' 10.5 ) 07/29/2021 1:16 PM CS T Body Mass Index 39.47 07/29/2021 1:16 PM FLUE TILE PRESS OPERATOR documented in this encounter Progress Notes [...] performed by Omar Johns MD at [facility] OR ulcerative pancolitis ??? COLONOSCOPY N/A 08/24/2020 COLONOSCOPY WITH COLON BIOPSY VIA LARGE COLD FORCEP AND STOOL SAMPLE FOR CDIFF performed by Omar Hawk MD at [facility] ??? TONSILLECTOMY PE: Filed Vitals: 07/29/21 [...] JOHNS MD 07/29/2021 Voice recognition software utilized TILE PRESS OPERATOR documented in this encounter Plan of Treatment Upcoming Encounters Date Type Department Care Team (Late st Contact Info) Description 08/21/2024 4:00 PM CDT Office Visit [facility] Medical Group Family Medicine - [place] 100 [place] [phone] Charla Campos PA-C 100 [facility] [place] [address] documented as of this encounter Visit Diagnoses Diagnosis Ulcerative pancolitis without complication (CMS/HCC HHS/HCC)- Primary documented in this encounter Additional Health Concerns Assessment Noted Time PHQ-9 Depression Total Score: 3 07/30/19 22 1:18 PM FLUE TILE PRESS OPERATOR documented as of this encounter
--- OUTSIDE RECORDS SUMMARY | 2024-06-08 08:19 | XMS_ITS | Encounter Summary ---
Author Organization [facility] Address [facility]6 [facility] [place] [address] [place] [address] Care Team Providers Care Water Inspector Name Role Phone Unavailable Primary Care Provider Unavailabl e Reason for Visit * Reason Onset Date Comments Information 07/15/2021 Encounter Details Date Type Department Care Team (Late st Contact Info) Description 07/15/2021 Telephone [facility] Medical Group Multispecialty Care - [facility] 3 [facility], [address] [place] [address] Seble Bliss NP 3 [facility]. [address] [place], [place] [phone] Information Social History Tobacco Use Types Packs/Day [...] 2:18 PM CST Received a call from [facility] requesting the patient is to have TB [...] whether she can have that done at [facility] I told her I would send the lab orders over to her via mail she will have that done at wherever she has coverage at. HOSTESS documented in this encounter Plan of Treatment Upcoming Encounters Date Type Department Care Team (Late st Contact Info) Description 08/21/2024 4:00 PM CDT Office Visit [facility] Medical Group Family Medicine - [place] [phone] Charla Campos PA-C [address] [place] [address]. [place] [address] documented as of this encounter Results * QUANTIFERON-TB GOLD PLUS, 4T (07/27/2021 7:15 AM MEAT HOSTESS) QUANTIFERON TB PLUS 4T NEGATIVE NEGATIVE 07/31/2021 9:45 PM MEAT HOSTESS [facility] Comment: Negative test result. M. tuberculosis complex infection unlikely. NIL (TB) 0.02 IU/mL 07/31/2021 9:45 PM MEAT HOSTESS [facility] MYERS-PERRYTI LLY MITOGEN NIL >10.00 IU/mL 07/31/2021 9:45 PM MEAT HOSTESS [facility] MYERS-PERRYTI LLY TB1 AG MINUS NIL <0.00 IU/mL 08/01/19 9:45 PM MEAT HOSTESS [facility] MYERS-PERRYTI LLY TB2 AG MINUS NIL <0.00 IU/mL 08/01/19 9:45 PM MEAT HOSTESS [facility] MYERS-PERRYTI LLY Comment: The Nil tube [...] T-lymphocytes. For additional information, please refer to http://education.uFaber/faq/TZF085 (This link is being provided for information/ educational purposes only.) Test Performed by [facility], [address] [place] [address] José Antonio Mart M.D., Ph.D., Director of Laboratories , [facility] [id number] 07/27/2021 7:15 AM MEAT HOSTESS us Seble Bliss NP LABORATORY Final Result [facility] [address] , documented in this encounter Visit Diagnoses Diagnosis Ulcerative pancolitis with rectal bleeding (CMS/HCC HHS/HCC)- Primary documented in this encounter
--- OUTSIDE RECORDS SUMMARY | 2024-06-08 08:19 | XMS_ITS | Encounter Summary ---
Author Organization [facility] Address [address] [place] [address]. [place], [place] [address] [place] [address] Care Team Providers Care Retort Furnace Helper Name Role Phone Unavailable Primary Care [...] COVID-19? No / Unsure 05/19/2021 11:22 AM YOUTH CARE PROFESSIONAL documented as of this encounter Plan of Treatment Upcoming Encounters Date Type Department Care Team (Late st Contact Info) Description 08/21/2024 4:00 PM CDT Office Visit [facility] Medical Group Family Medicine - [place] [phone] Charla Campos PA-C [address] [place] [address] documented as of this encounter Visit Diagnoses Not on filedocumented in this encounter
--- OUTSIDE RECORDS SUMMARY | 2024-06-08 08:19 | XMS_ITS | Encounter Summary ---
Author Organization [facility] Address [address] [place] [address]. [place], [place] [address] [place] [address] Care Team Providers Care Textile Supervisor Name Role Phone Unavailable Primary Care [...] COVID-19? No / Unsure 05/19/2021 11:22 AM WAREHOUSE GUARD documented as of this encounter Plan of Treatment Upcoming Encounters Date Type Department Care Team (Late st Contact Info) Description 08/21/2024 4:00 PM CDT Office Visit [facility] Medical Group Family Medicine - [place] [address] [place] [phone] Charla Campos PA-C [address] [place] [address] documented as of this encounter Visit Diagnoses Not on filedocumented in this encounter
--- OUTSIDE RECORDS SUMMARY | 2024-06-08 08:19 | XMS_ITS | Encounter Summary ---
Author Organization [facility] Address [address] [place] [address]. [place] [address] [place] [address] Care Team Providers Care Principal Architect Name Role Phone Unavailable Primary Care Provider Unavailabl e Reason for Visit * Reason Onset Date Comments Error 06/14/2021 Encounter Details Date Type Department Care Team (Late st Contact Info) Description 06/14/2021 Telephone [facility] Medical Group Multispecialty Care - [facility] 3 [facility], [address] [place] [address] Seble Bliss NP 3 [facility]. [address] [place] [address] Error Social History Tobacco Use Types Packs/Day [...] COVID-19? No / Unsure 05/19/2021 11:22 AM HONEY EXTRACTOR documented as of this encounter Plan of Treatment Upcoming Encounters Date Type Department Care Team (Late st Contact Info) Description 08/21/2024 4:00 PM CDT Office Visit [facility] Medical Group Family Medicine - [address] [phone] Charla Campos PAZaheerC [address] [place] [address] documented as of this encounter Visit Diagnoses Not on filedocumented in this encounter
--- OUTSIDE RECORDS SUMMARY | 2024-06-08 08:19 | XMS_ITS | Encounter Summary ---
Author Organization [facility] Address [address] [place] [address]. [place] [address] [place] [address] Care Team Providers Care Feed Mill Supervisor Name Role Phone Unavailable Primary Care Provider Unavailabl e Reason for Visit * Reason Onset Date Comments Question 06/10/2021 Encounter Details Date Type Department Care Team (Late st Contact Info) Description 06/10/2021 Telephone [facility] Medical Group Multispecialty Care - [facility] 3 [facility], [address] [place] [address] Seble Bliss NP 3 [facility]. [address] [place], [place] [phone] Question Social History Tobacco Use Types Packs/Day [...] COVID-19? No / Unsure 05/19/2021 11:22 AM COBBLER APPRENTICE documented as of this encounter Progress Notes * Renetta Chapman - 06/10/2021 11:20 AM CST [facility] rep called to confirm if pt was having injections in our office or infusion center. Per scheduled appts I gave her the information on where injections would take place. No follow up call needed at this time LER APPRENTICE documented in this encounter Plan of Treatment Upcoming Encounters Date Type Department Care Team (Late st Contact Info) Description 08/21/2024 4:00 PM CDT Office Visit [facility] Medical Group Family Medicine - [place] [address] [place] [phone] Charla Campos PA-C [address] [place] [address] documented as of this encounter Visit Diagnoses Not on filedocumented in this encounter
--- OUTSIDE RECORDS SUMMARY | 2024-06-08 08:19 | XMS_ITS | Encounter Summary ---
Author Organization [facility] Address [address] [place] [address]. [place] [address] [place] [address] Care Team Providers Care Fibre Optics Jointer Name Role Phone Unavailable Primary Care Provider Unavailabl e Reason for Visit * Reason Onset Date Comments Follow Up Call 07/15/2021 Encounter Details Date Type Department Care Team (Late st Contact Info) Description 07/15/2021 Telephone [facility] Medical Group Multispecialty Care - [address], [address] [place] [address] Omar Johns MD 3 [facility] [address] [place] [address] Follow Up Call Social History Tobacco Use [...] pt. I transferred the call to Priscilla RAIL CAR OPERATOR documented in this encounter Plan of Treatment Upcoming Encounters Date Type Department Care Team (Late st Contact Info) Description 08/21/2024 4:00 PM CDT Office Visit [facility] Medical Group Family Medicine - [place] [address] [place] [phone] Charla Campos PA-C [address] [place] [address] documented as of this encounter Visit Diagnoses Not on filedocumented in this encounter
--- OUTSIDE RECORDS SUMMARY | 2024-06-08 08:19 | XMS_ITS | Encounter Summary ---
Author Organization [facility] Address [address] [place] [address]. [place] [address] [place] [address] Care Team Providers Care Lead Sql Developer Name Role Phone Unavailable Primary Care Provider Unavailabl e Reason for Visit * Reason Comments Infusion Therapy * Injection (Routine) - Pending Review Specialty Diagnoses / Procedures Referred By Yodit t Referred To Contact [facility] Infusion Therapy Diagnoses K51.0 Procedures INFLIXIMAB-DYYB 10MG IV SOLR (INFLECTRA) INTRAVENOUS INFUSION FOR THERAPY UP TO 1HR INTRAVENOUS INFUSION FOR THERAPY EA ADDL HR INFUSION [facility] [place] [address] Phone: tel: fax: [facility] [place] [address] Phone: tel: fax: Referral ID Status Reason Start Date Expiration Date V isits Requested Visits Authorized [id number] Pending Review 09/23/2020 15 15 Encounter Details Date Type Department Care Team (Late st Contact Info) Description 03/24/2021 2:30 PM CDT Treatment [facility] Infusion Services [place], [place] [address] Omar Johns MD [address] [place] [address] Infusion Therapy Social History Tobacco Use Types [...] Description 08/21/2024 4:00 PM CDT Office Visit [facility] Medical Group Family Medicine - [place] 100 [place] [phone] Charla Campos PA-C 100 [place] [address] documented as of this encounter Visit Diagnoses [...]
--- OUTSIDE RECORDS SUMMARY | 2024-06-08 08:19 | XMS_ITS | Encounter Summary ---
Author Organization [facility] Address [address] [place] [address]. [place] [address] [place] [address] Care Team Providers Care Lumber Carrier Name Role Phone Unavailable Primary Care Provider Unavailabl e Encounter Details Date Type Department Care Team (Late st Contact Info) Description 07/27/2021 Orders Only [facility] [place], [place] [address] Seble Bliss NP 3 [facility]. [address] [place], [place] [address] Social History Tobacco Use Types Packs/Day Years [...] Coronavirus/COVID-19? No / Unsure 07/27/2021 6:56 AM LIVESTOCK BRANDS INSPECTOR documented as of this encounter Plan of Treatment Upcoming Encounters Date Type Department Care Team (Late st Contact Info) Description 08/21/2024 4:00 PM CDT Office Visit [facility] Medical Group Family Medicine - [place] [address] [place] [phone] Charla Campos PA-C [address] [place] [address] documented as of this encounter Visit Diagnoses Diagnosis Ulcerative chronic pancolitis with rectal bleeding ([facility]/HCC [facility])- Primary [place] ulcerative (chronic) colitis documented in this encounter
--- OUTSIDE RECORDS SUMMARY | 2024-06-08 08:19 | XMS_ITS | Encounter Summary ---
Author Organization [facility] Address [address] [place] [address]. [place] [address] [place] [address] Care Team Providers Care Equine Breeder Name Role Phone Unavailable Primary Care Provider Unavailabl e Reason for Visit * Reason Onset Date Comments Medication 06/08/2021 Encounter Details Date Type Department Care Team (Late st Contact Info) Description 06/08/2021 Telephone [facility] Medical Group Multispecialty Care - [facility] 3 [facility], [address] [place] [address] Seble Bliss NP 3 [facility]. [address] [place] [address] Medication Social History Tobacco Use Types Packs/Day [...] COVID-19? No / Unsure 05/19/2021 11:22 AM ROBOTIC TOY INVENTOR documented as of this encounter Progress Notes * Seble Bliss NP - 06/08/2021 8:20 AM CST Please find out more information for pt as I am not able to find this pharmacy in the information please. TIC TOY INVENTOR * Caridad Azul - 06/08/2021 7:41 AM CST Paige called today and her insurance has changed and her medication needs to be sent to [facility]. Phone # is [phone] Medication is Inflectra. Please call when completed. TIC TOY INVENTOR documented in this encounter Plan of Treatment Upcoming Encounters Date Type Department Care Team (Late st Contact Info) Description 08/21/2024 4:00 PM CDT Office Visit [facility] Medical Group Family Medicine - [place] [phone] Charla Campos PA-C [address] [place] [address] documented as of this encounter Visit Diagnoses Diagnosis Ulcerative pancolitis without complication (CMS/HCC HHS/HCC) documented in this encounter
--- OUTSIDE RECORDS SUMMARY | 2024-06-08 08:19 | XMS_ITS | Encounter Summary ---
Author Organization [facility] Address [facility] [place] [address] [place] [address] Care Team Providers Care Mixer Pigment Name Role Phone Unavailable Primary Care Provider Unavailabl e Encounter Details Date Type Department Care Team (Late st Contact Info) Description 10/10/2021 Orders Only [facility] Medical Group Multispecialty Care - [facility] 3 [facility], [address] [place] [phone] Seble Bliss, JORI 3 [facility]. [address] [place] [address] Social History Tobacco Use Types Packs/Day Years [...] [facility] Medical [facility] Family Medicine - [place] 100 [place] [address] Charla Campos PA-C [address] [place] [address] documented as of this encounter Visit Diagnoses Not on filedocumented in this encounter Additional Health Concerns Assessment Noted Time PHQ-9 Depression Total Score: 3 07/30/19 22 1:18 PM CORPORATE JOB TITLES documented as of this encounter
--- OUTSIDE RECORDS SUMMARY | 2024-06-08 08:19 | XMS_ITS | Encounter Summary ---
Author Organization [facility] Address [address] [place] [address]. [place] [address] [place] [address] Care Team Providers Care Gem Cutter Name Role Phone Unavailable Primary Care Provider Unavailabl e Encounter Details Date Type Department Care Team (Late st Contact Info) Description 07/27/[address] [facility] [place], [place] [phone] Seble Bliss NP 3 [facility]. [address] [place], [place] [address] Social History Tobacco Use Types Packs/Day Years [...] Coronavirus/COVID-19? No / Unsure 07/29/2021 9:45 AM SHIPPING AGENT documented as of this encounter Plan of Treatment Upcoming Encounters Date Type Department Care Team (Late st Contact Info) Description 08/21/2024 4:00 PM CDT Office Visit [facility] Family Medicine - [place] [phone] Charla Campos PASariah [address] [place] [address] documented as of this encounter Visit Diagnoses Not on filedocumented in this encounter
--- OUTSIDE RECORDS SUMMARY | 2024-06-08 08:19 | XMS_ITS | Encounter Summary ---
Author Organization [facility] Address [address] [place] [address]. [place], [place] [address] [place] [address] Care Team Providers Care Photo Mask Inspector Name Role Phone Unavailable Primary Care [...] [facility] Family Medicine - [place] [address] [place] [phone] Charla Campos PA-C 100 [place] [address] documented as of this encounter Visit Diagnoses Not on filedocumented in this encounter Additional Health Concerns Assessment Noted Time PHQ-9 Depression Total Score: 3 07/30/19 22 1:18 PM BEAUTY ADVISOR documented as of this encounter
--- OUTSIDE RECORDS SUMMARY | 2024-06-08 08:19 | XMS_ITS | Encounter Summary ---
Author Organization [facility] Address [address] [place] [address]. [place] [address] [place] [address] Care Team Providers Care Jig Borer Name Role Phone Unavailable Primary Care Provider Unavailabl e Encounter Details Date Type Department Care Team (Latest Contact Info) Description 07/27/2021 6:56 AM TOUR ESCORT - 07/27/2021 11:59 PM TOUR ESCORT Hospital Encounter [facility] [place] [address] Seble Bliss, JORI 3 [facility]. [address] [place] [address] Discharge Disposition: Home or Self Care (Routine [...] Coronavirus/COVID-19? No / Unsure 07/27/2021 6:56 AM TOUR ESCORT documented as of this encounter Medications at [...] or fax results to the infusion center ([facility]) so pt may get results. ESCORT * Seble Bliss NP - 07/27/2021 7:15 AM CST Please let pt know her TB test returned negative. Thanks ESCORT documented in this encounter Plan of Treatment Upcoming Encounters Date Type Department Care Team (Late st Contact Info) Description 08/21/2024 4:00 PM CDT Office Visit [facility] Family Medicine - [place] [phone] Charla Campos PA-C [address] [place] [address] documented as of this encounter Procedures Procedure Name Priority Date/Time Associated Diagnosis Comments QUANTIFERON-TB GOLD PLUS, 4T Routine 07/27/2021 7:15 AM TOUR ESCORT Ulcerative pancolitis with rectal bleeding (CMS/HCC HHS/HCC) HEPATITIS B CORE ANTIBODY Routine 07/27/2021 7:15 AM TOUR ESCORT documented in this encounter Results * HEPATITIS B CORE ANTIBODY (07/27/2021 7:15 AM TOUR ESCORT) HEP B CORE TOTAL AB NON-REACTI VE NON-REACTI VE 07/27/2021 5:10 PM TOUR ESCORT [facility] 07/27/2021 7:15 AM TOUR ESCORT Seble Bliss NP LABORATORY Final Result [facility] 3 [place] [address], [place] [phone] * QUANTIFERON-TB GOLD PLUS, 4T (07/27/2021 7:15 AM TOUR ESCORT) [facility] QUANTIFERON TB PLUS 4T NEGATIVE NEGATIVE 07/31/2021 9:45 PM TOUR ESCORT [facility] LOUIS-CARMELA LLY Comment: Negative test result. M. tuberculosis complex infection unlikely. NIL (TB) 0.02 IU/mL 07/31/2021 9:45 PM TOUR ESCORT [facility]ARMEL[facility] L[facility] MITOGEN NIL >10.00 IU/mL 07/31/2021 9:45 PM TOUR ESCORT [facility] BEATRICE LLY TB1 AG MINUS NIL <0.00 IU/mL 08/01/19 9:45 PM TOUR ESCORT [facility] MYERS-PERRYTI LLY TB2 AG MINUS NIL <0.00 IU/mL 08/01/19 9:45 PM TOUR ESCORT [facility] MYERS-PERRYTI LLY Comment: The Nil tube [...] T-lymphocytes. For additional information, please refer to http://education.[employer].MyMoneyPlatform/faq/IYF121 (This link is being provided for information/ educational purposes only.) Test Performed by Aryan Schmitt, [facility], [address] [place], [place] José Antonio Mart M.D., Ph.D., Director of Laboratories , [facility] [id number] 07/27/2021 7:15 AM TOUR ESCORT us Seble Bliss NP LABORATORY Final Result [facility] [address] [place], [place] , documented in this encounter Visit Diagnoses Diagnosis Ulcerative pancolitis with rectal bleeding (CMS/HCC HHS/HCC) Ulcerative chronic pancolitis with rectal bleeding (CMS/HCC HHS/HCC) [place] ulcerative (chronic) colitis documented in this encounter
--- OUTSIDE RECORDS SUMMARY | 2024-06-08 08:19 | XMS_ITS | Encounter Summary ---
Author Organization [facility] Address [address] [place] [address]. [place], [place] [address] [place] [address] Care Team Providers Care Store Gift Wrap Associate Name Role Phone Unavailable Primary Care [...] [facility] Family Medicine - [place] [phone] Charla Campos PA-C [address] [place] [address] documented as of this encounter Visit Diagnoses Not on filedocumented in this encounter
--- OUTSIDE RECORDS SUMMARY | 2024-06-08 08:19 | XMS_ITS | Encounter Summary ---
Author Organization [facility] Address [facility] [facility] [place] [address] [place] [address] Care Team Providers Care Marketing Strategy Manager Name Role Phone Unavailable Primary Care Provider Unavailabl e Encounter Details Date Type Department Care Team (Late st Contact Info) Description 10/14/2021 Orders Only [facility] Multispecialty Care - [facility] 3 [facility], [address] [place] [phone] Seble Bliss, JORI 3 [facility]. [address] [place] [address] Social History Tobacco Use Types Packs/Day Years [...] [facility] Family Medicine - [place] 100 [place] [address] Charla Campos PA-C [address] [place] [address] documented as of this encounter Visit Diagnoses Not on filedocumented in this encounter Additional Health Concerns Assessment Noted Time PHQ-9 Depression Total Score: 3 07/30/19 22 1:18 PM DEPUTY SHERIFF CHIEF documented as of this encounter
--- OUTSIDE RECORDS SUMMARY | 2024-06-08 08:19 | XMS_ITS | Encounter Summary ---
Author Organization [facility] Address [address] [place] [address]. [place] [address] [place] [address] Care Team Providers Care Roller Mill Tender Name Role Phone Unavailable Primary Care Provider Unavailabl e Reason for Visit * Reason Comments Acute Note sore throat,cough wi th green sputum, and sinus drainage Encounter Details Date Type Department Care Team (Late st Contact Info) Description 04/05/2021 2:00 PM MILL CRANE OPERATOR Office Visit [facility] [address] [facility] [address] [place] [address] Monik Fonseca MD [address] [facility] [address] [place] [phone] Acute Note (sore throat,cough with green sputum, [...] Comments Blood Pressure 128/64 04/05/2021 1:42 PM MILL CRANE OPERATOR Pulse - - Temperature 36.9 ??C (98.4 ??F) 04/05/2021 1:42 PM CS T Respiratory Rate - - Oxygen Saturation - - Inhaled Oxygen Concentration - - Weight 130.6 kg (288 lb) 04/05/2021 1:42 PM MILL CRANE OPERATOR Height - - Body Mass Index [...] BIOPSIES performed by Omar Johns MD at [facility] OR ulcerative pancolitis ??? COLONOSCOPY N/A 08/24/2020 COLONOSCOPY WITH COLON BIOPSY VIA LARGE COLD FORCEP AND STOOL SAMPLE FOR CDIFF performed by Omar Hawk MD at [facility] ??? TONSILLECTOMY Social History Tobacco Use ??? [...] ref. provider found PCP: MONIK FONSECA MD CRANE OPERATOR documented in this encounter Plan of Treatment Upcoming Encounters Date Type Department Care Team (Late st Contact Info) Description 08/21/2024 4:00 PM CDT Office Visit [facility] Family Medicine - [place] 100 [place] [phone] Charla Campos PA-C 100 [place] [address] documented as of this encounter Visit Diagnoses Diagnosis Acute upper respiratory infection- Primary Acute upper respiratory infections of unspecified site documented in this encounter
--- OUTSIDE RECORDS SUMMARY | 2024-06-08 08:19 | XMS_ITS | Encounter Summary ---
Author Organization [facility] Address [address] [place] [address]. [place], [place] [address] [place] [address] Care Team Providers Care Process Checker Name Role Phone Unavailable Primary Care Provider [...] Description 08/21/2024 4:00 PM CDT Office Visit [facility] Family Medicine - [place] 100 [place] [phone] Charla Campos PA-C 100 [place] [address] documented as of this encounter Visit Diagnoses Not on filedocumented in this encounter Additional Health Concerns Assessment Noted Time PHQ-9 Depression Total Score: 3 07/30/19 22 1:18 PM BUILDING DISMANTLER documented as of this encounter
--- OUTSIDE RECORDS SUMMARY | 2024-06-08 08:19 | XMS_ITS | Encounter Summary ---
Author Organization [facility] Address [address] [place] [address]. [place] [address] [place] [address] Care Team Providers Care Mangle Catcher Name Role Phone Unavailable Primary Care Provider Unavailabl e Reason for Visit * Reason Comments Infusion Therapy * Injection (Routine) - Pending Review Specialty Diagnoses / Procedures Referred By Yodit t Referred To Contact [facility] Infusion Therapy Diagnoses K51.0 Procedures INFLIXIMAB-DYYB 10MG IV SOLR (INFLECTRA) INTRAVENOUS INFUSION FOR THERAPY UP TO 1HR INTRAVENOUS INFUSION FOR THERAPY EA ADDL HR INFUSION [facility] [place] [address] Phone: tel: fax: [facility] [place] [address] Phone: tel: fax: Referral ID Status Reason Start Date Expiration Date V isits Requested Visits Authorized [id number] Pending Review 09/23/2020 15 15 Encounter Details Date Type Department Care Team (Late st Contact Info) Description 05/19/2021 2:30 PM CARPENTERS HELPER Treatment [facility]fusion Services [place], [place] [phone] Omar Johns MD [address] [place] [phone] Infusion Therapy Social History Tobacco Use Types [...] COVID-19? No / Unsure 05/19/2021 11:22 AM CARPENTERS HELPER documented as of this encounter Last Filed Vital Signs Vital Sign Reading Time Taken Comments Blood Pressure 125/89 05/19/2021 5:19 PM CARPENTERS HELPER Pulse 93 05/19/2021 5:19 PM CARPENTERS HELPER Temperature 36.6 ??C (97.9 ??F) 05/19/2021 2:52 PM CS T Respiratory Rate 20 05/19/2021 5:19 PM CARPENTERS HELPER Oxygen Saturation 98% 05/19/2021 5:19 PM CARPENTERS HELPER Inhaled Oxygen Concentration - - Weight 130.2 kg (287 lb) 05/19/2021 2:18 PM CARPENTERS HELPER Height 179.1 cm (5' 10.5 ) 05/19/2021 2:18 PM CS T Body Mass Index 40.6 05/19/2021 2:18 PM CARPENTERS HELPER documented in this encounter Progress Notes * Carly Moseley RN - 05/19/2021 2:30 PM CST Pt tolerated inflectra infusion well with out complications. ENTERS HELPER documented in this encounter Plan of Treatment Upcoming Encounters Date Type Department Care Team (Late st Contact Info) Description 08/21/2024 4:00 PM CDT Office Visit [facility] Group Family Medicine - [place] 100 [place] [phone] Charla Campos PA-C 100 [place] [address] documented as of this encounter Visit Diagnoses [...] (CMS/HCC HHS/HCC) New Bag 05/19/2021 2:52 PM CARPENTERS HELPER 650 mg 125 mL/hr documented in this encounter
--- OUTSIDE RECORDS SUMMARY | 2024-06-08 08:19 | XMS_ITS | Encounter Summary ---
Author Organization [facility] Address [facility] [place] [address] [place] [address] Care Team Providers Care Traveling Buyer Name Role Phone Unavailable Primary Care Provider Unavailabl e Encounter Details Date Type Department Care Team (Late st Contact Info) Description 10/12/2021 Orders Only [facility] Multispecialty Care - [facility] 3 [facility], [address] [place] [phone] Seble Bliss, JORI 3 [facility]. 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
--- OUTSIDE RECORDS SUMMARY | 2024-06-08 08:20 | XMS_ITS | Encounter Summary ---
Author Organization [facility] Address [facility] [place] [address] [place] [address] Care Team Providers Care Armament Aircraft Mechanic Name Role Phone Unavailable Primary Care Provider Unavailabl e Reason for Visit * Reason Onset Date Comments WorkComp/Disability/FMLA Report (SCAN) Encounter Details Date Type Department Care Team (Late st Contact Info) Description 01/11/2021 Telephone [facility] Group Multispecialty Care - [facility] 3 [facility], [address] [place] [address] Omar Johns MD 3 [facility] [address] [place] [address] WorkComp/Disability/F MLA Report (SCAN) Social History Tobacco [...] to discuss both subjects. Call back number [phone]. documented in this encounter Plan of Treatment Upcoming Encounters Date Type Department Care Team (Late st Contact Info) Description 08/21/2024 4:00 PM CDT Office Visit [facility] Group Family Medicine - [place] [address] [place] [phone] Charla Campos PA-C [address] [place] [address] documented as of this encounter Visit Diagnoses Not on filedocumented in this encounter
--- OUTSIDE RECORDS SUMMARY | 2024-06-08 08:20 | XMS_ITS | Encounter Summary ---
Author Organization [facility] Address [address] [place] [address]. [place], [place] [phone] [place] [address] Care Team Providers Care Physical Therapy Teacher Name Role Phone Unavailable Primary Care Provider Unavailabl e Encounter Details Date Type Department Care Team ([facility] st Contact Info) Description 12/29/2020 7:45 AM CDT Laboratory Only [facility] [address] [facility] [address] [place] [address] Social History Tobacco Use Types [...] [facility] Family Medicine - [place] 100 [place] [phone] Charla Campos PA-C 100 [place] [address] documented as of this encounter [...] [facility] MCH 27.0 27.0 - 33.0 PG [facility] MCHC 31.0(L) 32.0 - 36.0 G/DL [facility] RDW CALCULATED 13.0 11.0 - 15.0 % [facility] PLT 316 150 - 450 10'3/UL [facility] MPV 10.8 9.8 - 12.7 FL [facility] NRBC 0.00 0 % [facility] ABS. NUCLEATED RBC'S 0.0 0 10'3/UL [facility] NEUTROPHILS % 47.0 37.0 - 72.0 % [facility] ABS. LYMPHOCYTES 41.0 16.0 - 48.0 % [facility] ABS. MONOCYTES 9.0 4.0 - 14.0 % [facility] ABS. EOSINOPHILS 2.0 0.0 - 9.0 % [facility] BASOPHILS 1.0 0.0 - 2.0 % [facility] AUTO % IMMATURE GRANULOCYTES 0.0 NO DEFINED REFERENCE RANGE % [facility] ABS. NEUTROPHILS 3.9 1.1 - 6.0 10'3/UL [facility] LYMPHOCYTES 3.4 0.7 - 3.4 10'3/UL [facility] ABS. MONOCYTES 0.7 0.3 - 1.0 10'3/UL [facility] EOSINOPHILS 0.2 0.0 - 0.6 10'3/UL [facility] ABS. BASOPHILS 0.1 0.0 - 0.1 10'3/UL [facility] AUTO ABS IMMATURE GRANULOCYTES 0.00 0.00 - 0.10 10'3/UL [facility] Comment: RELEASE TO PATIENT->SYSTEM RELEASE 12/30/2020 3:38 AM: P INDICATES PARTIAL RESULTS ON A PANEL HAVE BEEN RELEASED. ADDITIONAL RESULTS WILL FOLLOW. 12/30/2020 3:38 AM: THIS RESULT HAS BEEN FINAL VERIFIED. NO ADDITIONAL OR CHANGED RESULTS ARE EXPECTED. 12/29/2020 7:43 AM CDT 12/30/2020 3:19 AM CDT us Karson Payne MD LABORATORY Final Resul t [facility] [address] [place] [address], * THYROID STIM HORMONE, TSH (12/29/2020 7:43 AM CDT) TSH 3.01 0.30 - 5.33 UIU/ML [facility] Comment:RELEASE TO PATIENT-> SYSTEM RELEASE 12/29/2020 7:43 AM CDT 12/30/2020 3:19 AM CDT Karson Payne MD LABORATORY Final Resul t Performing Organization Address [facility] Co de Phone Number [facility] [address] [place] [address], * LIPID PANEL (12/29/2020 7:43 AM CDT) Pathologist [facility] CHOLESTEROL 137 0 - 199 MG/DL [facility] TRIGLYCERIDES 131 0.00 - 150.00 MG/DL [facility] Comment: NCEP REFERENCE VALUES FOR TRIGLYCERIDES: NORMAL: ? <150 MG/DL BORDERLINE HIGH: ?150 - 199 MG/DL HIGH: ? 200 - 499 MG/DL VERY HIGH: ?>/= 500 MG/DL HDL 45 23 - 92 MG/DL [facility] LDL (CALCULATED) 66 0 - 99 MG/DL [facility] Comment: CUTOFF VALUES RECOMMENDED BY THE NATIONAL [...] 7:43 AM CDT 12/30/2020 3:19 AM CDT Karsno Payne MD LABORATORY Final Resul t [facility] [address] [place] [address], * (ABNORMAL) COMPREHENSIVE METABOLIC PANEL (12/29/2020 7:43 AM CDT) SODIUM S/P/B 136 136 - 145 MMOL/L [facility] POTASSIUM S/P/B 4.3 3.5 - 5.1 MMOL/L [facility] CHLORIDE S/P/B 106 98 - 107 MMOL/L [facility] CO2 22 21 - 31 MMOL/L [facility] ANION GAP 8 4 - 13 MMOL/L [facility] BUN 9 7 - 25 MG/DL [facility] CREATININE S/P/B 0.72 0.60 - 1.30 MG/DL [facility] EGFR AFR. AMER. 122 60 - 300 ML/MIN/1.7 3 M2 [facility] EGFR NON-AFR. AMER. 100 60 - 300 ML/MIN/1.7 3 M2 [facility] CALCIUM S/P/B 9.1 8.6 - 10.2 MG/DL [facility] GLUCOSE 91 70 - 100 MG/DL [facility] TOTAL PROTEIN S/P/B 7.0 6.4 - 8.3 G/DL [facility] ALBUMIN S/P/B 4.0 3.5 - 5.0 G/DL [facility] ALT 4(L) 9 - 43 UNITS/L [facility] ALKALINE PHOSPHATASE S/P/B 52 34 - 104 UNITS/L [facility] AST 11(L) 13 - 39 UNITS/L [facility] BILIRUBIN TOTAL S/P/B 0.4 0.2 - 1.2 MG/DL [facility] Comment: IS PATIENT FASTING?->YES RELEASE TO PATIENT->SYSTEM [...] LABORATORY Final Resul t Performing Organization Address City/[facility]/ZIP Co de Phone Number [facility] [address] [phone] documented in this encounter Visit Diagnoses Diagnosis Hair loss- Primary Alopecia, unspecified Fatigue, unspecified type Encounter for lipid screening for cardiovascular disease documented in this encounter
--- OUTSIDE RECORDS SUMMARY | 2024-06-08 08:20 | XMS_ITS | Encounter Summary ---
Author Organization [facility] Address [address] [place] [address]. [place], [place] [address] [place] [address] Care Team Providers Care Avionics Safety Inspector Name Role Phone Unavailable Primary Care Provider Unavailabl e Encounter Details Date Type Department Care Team ([facility] st Contact Info) Description 12/28/2020 4:15 PM CDT Laboratory Only [facility] [address] [facility] [address] [place] [address] Social History Tobacco Use Types [...] [facility] Medical Group Family Medicine - [place] [phone] Charla Campos PA-C [address] [place] [phone] Scheduled Orders Name Type Priority Associated Diagnoses [...] CASE REPORT: CYTOLOGY GYNECOLOGICAL REPORT ? CASE: [id number] ? AUTHORIZING PROVIDER: ??MONIK FONSECA MD ? [...] NOTE: THIS SPECIMEN WAS REVIEWED BY A KITCHEN ASSISTANT AND/OR PATHOLOGIST ( INDICATED IN THIS REPORT) AFTER EVALUATION USING THE [employer] IMAGING SYSTEM. CLINICAL INFORMATION: MENSTRUAL STATUS: ? LMP (IF APPLICABLE): ? CLINICAL HISTORY/PREVIOUS PAP: ? TYPE OF NEOPLASIA (IF APPLICABLE): ? SIGNIFICANT CLINICAL FINDINGS: ? OTHER HISTORY: ? HORMONES (IF APPLICABLE): ? SUGGESTED FOLLOW-UP: FOLLOW UP WARRANTED, BASED ON CURRENT GUIDELINES AND INDIVIDUAL PATIENT CONSIDERATIONS. 12/28/2020 4:10 PM CDT 12/29/2020 7:16 AM CDT [facility] - 12/30/2020 4:44 PM CDT SCREENING OR FOLLOW-UP OF ABNORMAL RESULTS?->SCREENING GYNE SOURCE:->CERVIX RELEASE TO PATIENT->SYSTEM RELEASE us Monik Fonseca MD PATHOLOGY/CYTOLOGY ORDERABL ES Final Result [email or web address] [address] [place] [address], [place] [phone] documented in this encounter Visit Diagnoses Diagnosis Encounter for screening for malignant neoplasm of cervix- Primary Screening for malignant neoplasm of the cervix Screening for STD (sexually transmitted disease) Screening examination for venereal disease Bacterial vaginitis Vaginitis and vulvovaginitis, unspecified Bacterial vaginosis Vaginitis and vulvovaginitis, unspecified documented in this encounter
--- OUTSIDE RECORDS SUMMARY | 2024-06-08 08:20 | XMS_ITS | Encounter Summary ---
Author Organization [facility] Address [address] [place] [address]. [place] [address] [place] [address] Care Team Providers Care Paediatric Physiotherapist Name Role Phone Unavailable Primary Care Provider Unavailabl e Reason for Visit * Reason Onset Date Comments Question 01/22/2021 Encounter Details Date Type Department Care Team (Late st Contact Info) Description 01/22/2021 Telephone [facility] Multispecialty Care - [facility] [address] [facility], [address] [place] [address] Omar Johns MD 3 [facility] [address] [place] [address] Question Social History Tobacco Use Types Packs/Day [...] to make sure our office was aware. [phone] documented in this encounter Plan of Treatment Upcoming Encounters Date Type Department Care Team (Late st Contact Info) Description 08/21/2024 4:00 PM CDT Office Visit [facility] Group Family Medicine - [place] [phone] Charla Campos PA-C [address] [place] [address] documented as of this encounter Visit Diagnoses Not on filedocumented in this encounter
--- OUTSIDE RECORDS SUMMARY | 2024-06-08 08:20 | XMS_ITS | Encounter Summary ---
Author Organization [facility] Address [address] [place] [address]. [place], [place] [address] [place] [address] Care Team Providers Care Echocardiologist Name Role Phone Unavailable Primary Care Provider [...] [facility] Family Medicine - [place] [phone] Charla Campos PA-C [address] [place] [address] documented as of this encounter Visit Diagnoses Not on filedocumented in this encounter
--- OUTSIDE RECORDS SUMMARY | 2024-06-08 08:21 | XMS_ITS | Encounter Summary ---
Author Organization [facility] Address [address] [place] [address]. [place], [place] [address] [place] [address] Care Team Providers Care Individual Pension Consultant Name Role Phone Unavailable Primary Care [...] [facility] - [place] [address] [place] [phone] Charla Campos PA-C [address] [place] [address] documented as of this encounter Visit Diagnoses Not on filedocumented in this encounter
--- OUTSIDE RECORDS SUMMARY | 2024-06-08 08:21 | XMS_ITS | Encounter Summary ---
Author Organization [facility] Address [facility] [place] [address] [place] [address] Care Team Providers Care Head Shipper Name Role Phone Unavailable Primary Care Provider Unavailabl e Encounter Details Date Type Department Care Team (Late st Contact Info) Description 09/23/2020 Orders Only [facility] Multispecialty Care - [address], [address] [place] [address] Xochitl Escobedo, GUERITA Social History [...] [facility] - [place] 100 [place] [address] Charla Campos PA-C 100 [place] [address] documented as of this encounter Visit Diagnoses Not on filedocumented in this encounter
--- OUTSIDE RECORDS SUMMARY | 2024-06-08 08:21 | XMS_ITS | Encounter Summary ---
Author Organization [facility] Address [address] [place] [address]. [place] [address] [place] [address] Care Team Providers Care Customer Project Manager Name Role Phone Unavailable Primary Care Provider Unavailabl e Reason for Visit * Reason Onset Date Comments Forms 10/02/2020 Encounter Details Date Type Department Care Team (Late st Contact Info) Description 10/02/2020 Telephone [facility] Multispecialty Care - [address], [address] [place] [address] Omar Johns MD 3 [facility] [address] [place] [address] Forms Social History Tobacco Use Types Packs/Day [...] paper work and faxed it back to [employer] for [employer] assistance. * Sailaja Packer - 10/07/2020 9:08 AM CDT Pt stated on form for inflectra that the doctor needs to sign Sec A not the Nurse Prac. Please havedoctor sign and date. Then send back. * Xochitl Escobedo - 10/05/2020 10:42 AM CDT Spoke with patient she was informed that the patient assistance forms will be faxed over to [employer] for Inflect[employer] assistance. * Sailaja Packer - 10/05/2020 10:30 AM CDT Pt missed a call this morning from our office, she is asking to be called back. She is also asking if her forms were faxed? * Xochitl Escobedo - 10/02/2020 11:03 AM CDT LVM for pt to give the office a call we received a copy of the [employer] patient assistance forms to be completed and faxed back. Spoke with patient she will stop by the [facility] office this afternoon and complete paperwork. Formswill be left up front for her. documented in this encounter Plan of Treatment Upcoming Encounters Date Type Department Care Team (Late st Contact Info) Description 08/21/2024 4:00 PM CDT Office Visit [facility] Family Medicine - [place] [phone] Charla Campos PA-C [address] [place] [address] documented as of this encounter Visit Diagnoses Not on filedocumented in this encounter
--- OUTSIDE RECORDS SUMMARY | 2024-06-08 08:21 | XMS_ITS | Encounter Summary ---
Author Organization [facility] Address [address] [place] [address]. [place], [place] [address] [place] [address] Care Team Providers Care Inspector Tool Name Role Phone Unavailable Primary Care Provider [...] Description 08/21/2024 4:00 PM CDT Office Visit [facility] Family Medicine - [place] [phone] Charla Campos PA-C [address] [place] [address] documented as of this encounter Visit Diagnoses Not on filedocumented in this encounter
--- OUTSIDE RECORDS SUMMARY | 2024-06-08 08:21 | XMS_ITS | Encounter Summary ---
Author Organization [facility] Address [address] [place] [address]. [place], [place] [address] [place] [address] Care Team Providers Care Scrap Charger Name Role Phone Unavailable Primary Care Provider [...] [facility] Family Medicine - [place] [phone] Charla Campos PA-C [address] [place] [address] documented as of this encounter Visit Diagnoses Not on filedocumented in this encounter
--- OUTSIDE RECORDS SUMMARY | 2024-06-08 08:21 | XMS_ITS | Encounter Summary ---
Author Organization [facility] Address [address] [place] [address]. [place], [place] [address] [place] [address] Care Team Providers Care Pre Algebra Teacher Name Role Phone Unavailable Primary Care [...] [facility] Family Medicine - [place] [phone] Charla Campos PA-C [address] [place] [address] documented as of this encounter Visit Diagnoses Not on filedocumented in this encounter
--- OUTSIDE RECORDS SUMMARY | 2024-06-08 08:21 | XMS_ITS | Encounter Summary ---
Author Organization [facility] Address [address] [place] [address]. [place], [place] [address] [place] [address] Care Team Providers Care Child Care Attendant School Name Role Phone Unavailable Primary Care Provider [...] [facility] Family Medicine - [place] [phone] Charla Campos PA-C [address] [place] [address] documented as of this encounter Visit Diagnoses Not on filedocumented in this encounter
--- OUTSIDE RECORDS SUMMARY | 2024-06-08 08:21 | XMS_ITS | Encounter Summary ---
Author Organization [facility] Address [address] [place] [address]. [place] [address] [place] [address] Care Team Providers Care Change Director Name Role Phone Unavailable Primary Care Provider Unavailabl e Reason for Visit * Reason Onset Date Comments Information 08/27/2020 Encounter Details Date Type Department Care Team (Late st Contact Info) Description 08/27/2020 Telephone [facility] Multispecialty Care - [facility] [address] [facility], [address] [place] [address] Seble Bliss NP 3 [facility]. [address] [place], [place] [address] Information Social History Tobacco Use Types Packs/Day [...] her Entyvio infusion. Spoke with Carly in [place] infusion department. She said they checked with [...] before sending any information. Call back number [phone]. * Seble Bliss NP - 08/27/2020 4:22 [...] [facility] Family Medicine - [place] 100 [place] [phone] Charla Campos PA-C [address] [place] [address] documented as of this encounter Visit Diagnoses Not on filedocumented in this encounter
--- OUTSIDE RECORDS SUMMARY | 2024-06-08 08:21 | XMS_ITS | Encounter Summary ---
Author Organization [facility] Address [address] [place] [address]. [place] [address] [place] [address] Care Team Providers Care Medical Screener Name Role Phone Unavailable Primary Care Provider Unavailabl e Reason for Visit * Reason Onset Date Comments Medication Request 09/23/2020 Encounter Details Date Type Department Care Team (Late st Contact Info) Description 09/23/2020 Telephone [facility] Multispecialty Care - [address], [address] [place] [address] Omar Johns MD 3 [facility] [address] [place] [address] Medication Request Social History Tobacco Use Types [...] via fax to [facility]. * Xochitl Escboedo - 09/23/2020 1:10 PM CDT Spoke with [...] [facility] Family Medicine - [place] 100 [place] [phone] Charla Campos PA-C [address] [place] [address] documented as of this encounter Visit Diagnoses Diagnosis Ulcerative pancolitis without complication (CMS/HCC HHS/HCC) documented in this encounter
--- OUTSIDE RECORDS SUMMARY | 2024-06-08 08:21 | XMS_ITS | Encounter Summary ---
Author Organization [facility] Address [address] [place] [address]. [place] [address] [place] [address] Care Team Providers Care Biogeographer Name Role Phone Unavailable Primary Care Provider Unavailabl e Reason for Visit * Reason Onset Date Comments Question 09/14/2020 Encounter Details Date Type Department Care Team (Late st Contact Info) Description 09/14/2020 Telephone [facility] Multispecialty Care - [facility] 3 [facility], [address] [place] [address] Seble Bliss NP 3 [facility]. [address] [place] [address] Question Social History Tobacco Use Types Packs/Day [...] give Pt a call back to discuss [phone] documented in this encounter Plan of Treatment Upcoming Encounters Date Type Department Care Team (Late st Contact Info) Description 08/21/2024 4:00 PM CDT Office Visit [facility] Family Medicine - [place] [phone] Charla Campos PA-C [address] [place] [address] documented as of this encounter Visit Diagnoses Not on filedocumented in this encounter
--- OUTSIDE RECORDS SUMMARY | 2024-06-08 08:21 | XMS_ITS | Encounter Summary ---
Author Organization [facility] Address [address] [place] [address]. [place], [place] [address] [place] [address] Care Team Providers Care Special Procedure Tech Name Role Phone Unavailable Primary Care Provider [...] [facility] Family [facility] - [place] [phone] Charla Campos PA-C [address] [place] [address] documented as of this encounter Visit Diagnoses Not on filedocumented in this encounter
--- OUTSIDE RECORDS SUMMARY | 2024-06-08 08:21 | XMS_ITS | Encounter Summary ---
Author Organization [facility] Address [address] [place] [address]. [place], [place] [address] [place] [address] Care Team Providers Care Inspector Advanced Composite Name Role Phone Unavailable Primary Care Provider [...] 4:00 PM CDT Office Visit [facility] Family Medicine - [place] [address] [place] [phone] Charla Campos PA-C [address] [place] [address] documented as of this encounter Visit Diagnoses Not on filedocumented in this encounter
--- OUTSIDE RECORDS SUMMARY | 2024-06-08 08:21 | XMS_ITS | Encounter Summary ---
Author Organization [facility] Address [address] [place] [address]. [place], [place] [address] [place] [address] Care Team Providers Care Barrel Straightener Name Role Phone Unavailable Primary Care Provider [...] [facility] Family [facility] - [place] [phone] Charla Campos PA-C [address] [place] [address] documented as of this encounter Visit Diagnoses Not on filedocumented in this encounter
--- OUTSIDE RECORDS SUMMARY | 2024-06-08 08:21 | XMS_ITS | Encounter Summary ---
Author Organization [facility] Address [address] [place] [address]. [place] [address] [place] [address] Care Team Providers Care Porter Head Name Role Phone Unavailable Primary Care Provider Unavailabl e Reason for Visit * Reason Onset Date Comments Question 09/03/2020 Encounter Details Date Type Department Care Team (Late st Contact Info) Description 09/03/2020 Telephone [facility] Multispecialty Care - [facility] 3 [facility], [address] [place] [address] Seble Ratliff NP 3 [facility]. [address] [place] [address] Question Social History Tobacco Use Types Packs/Day [...] [facility] Family Medicine - [place] [phone] Charla Campos PA-C [address] [place] [address] documented as of this encounter Visit Diagnoses Diagnosis Epigastric pain- Primary Abdominal pain, epigastric documented in this encounter
--- OUTSIDE RECORDS SUMMARY | 2024-06-08 08:21 | XMS_ITS | Encounter Summary ---
Author Organization [facility] Address [address] [place] [address]. [place] [address] [place] [address] Care Team Providers Care Box Toe Stitcher Name Role Phone Unavailable Primary Care Provider Unavailabl e Reason for Visit * Reason Onset Date Comments Medication 09/25/2020 Encounter Details Date Type Department Care Team (Late st Contact Info) Description 09/25/2020 Telephone [facility] Multispecialty Care - [facility] 3 [facility], [address] [place] [address] Seble Bliss NP 3 [facility]. [address] [place] [address] Medication Social History Tobacco Use Types Packs/Day [...] pt medication to them... Please fu @ [phone] Order #[id number] documented in this encounter Plan of Treatment Upcoming Encounters Date Type Department Care Team (Late st Contact Info) Description 08/21/2024 4:00 PM CDT Office Visit [facility] Family Medicine - [place] 100 [place] [phone] Charla Campos PA-C 100 [place] [address] documented as of this encounter Visit Diagnoses Not on filedocumented in this encounter
--- OUTSIDE RECORDS SUMMARY | 2024-06-08 08:21 | XMS_ITS | Encounter Summary ---
Author Organization [facility] Address [address] [place] [address]. [place], [place] [address] [place] [address] Care Team Providers Care Benefits Assistant Name Role Phone Unavailable Primary Care Provider Unavailabl e Reason for Visit * Reason Comments Physical Annual Encounter Details Date Type Department Care Team ([facility] st Contact Info) Description 12/28/2020 4:00 PM CDT Office Visit [facility] [address] [facility] [address] [place] [address] Monik Fonseca MD [address] [facility] [address] [place] [address] Physical (Annual) Social History Tobacco [...] BIOPSIES performed by Omar Johns MD at [facility] OR ulcerative pancolitis ??? COLONOSCOPY N/A 08/24/2020 COLONOSCOPY WITH COLON BIOPSY VIA LARGE COLD FORCEP AND STOOL SAMPLE FOR CDIFF performed by Omar Hawk MD at [facility] ??? TONSILLECTOMY Social History Socioeconomic History ??? [...] Gatherings with Friends and Family: ??? Attends Holiness Services: ??? Active Member of Clubs or [...] [facility] Family Medicine - [place] [address] [place] [phone] Charla Campos PA-C [address] [place] [address] documented as of this encounter Procedures Procedure [...] ORDERABL ES Final Result Performing Organization Address [facility]/ZIP Co de Phone Number [facility] [address] [place] [address], * CHLAM/GC/TRICHOMONAS PROFILE (12/28/2020 4:10 PM CDT) CHLAMYDIA TRACHOMATIS NEGATIVE NEGATIVE [facility] NEISSERIA GONORRHOEAE PCR NEGATIVE NEGATIVE [facility] 12/28/2020 4:10 PM CDT 12/29/2020 7:16 AM CDT Narrative [facility] - 12/29/2020 5:30 PM CDT SCREENING OR FOLLOW-UP OF ABNORMAL RESULTS?->SCREENING GYNE SOURCE:->CERVIX RELEASE TO PATIENT->SYSTEM RELEASE us Monik Fonseca MD MICROBIOLOGY - GENERAL ORDE RABLES Final Result Performing Organization Address City/[facility]/ZIP Co de Phone Number [facility] [address] [place] [address], [place] [phone] documented in this encounter Visit Diagnoses Diagnosis Routine general medical examination at a health care facility- Primary Chronic rhinitis Hair loss Alopecia, unspecified documented in this encounter
--- OUTSIDE RECORDS SUMMARY | 2024-06-08 08:21 | XMS_ITS | Encounter Summary ---
Author Organization [facility] Address [address] [place] [address]. [place] [address] [place] [address] Care Team Providers Care Site Director Name Role Phone Unavailable Primary Care Provider Unavailabl e Reason for Visit * Reason Onset Date Comments Forms 12/03/2020 Encounter Details Date Type Department Care Team (Late st Contact Info) Description 12/03/2020 Telephone [facility] Group Multispecialty Care - [address], [address] [place] [address] Omar Johns MD 3 [facility] [address] [place] [address] Forms Social History Tobacco Use Types Packs/Day [...] [facility] Family Medicine - [place] [address] [place] [phone] Charla Campos PA-C [address] [place] [address] documented as of this encounter Visit Diagnoses Not on filedocumented in this encounter
--- OUTSIDE RECORDS SUMMARY | 2024-06-08 08:21 | XMS_ITS | Encounter Summary ---
Author Organization [facility] Address [address] [place] [address]. [place] [address] [place] [address] Care Team Providers Care Robotic Machine Tender Production Name Role Phone Unavailable Primary Care Provider Unavailabl e Reason for Visit * Reason Comments Infusion Therapy * Injection (Routine) - Pending Review Specialty Diagnoses / Procedures Referred By Yodit t Referred To Contact [facility] Infusion Therapy Diagnoses K51.0 Procedures INFLIXIMAB-DYYB 10MG IV SOLR (INFLECTRA) INTRAVENOUS INFUSION FOR THERAPY UP TO 1HR INTRAVENOUS INFUSION FOR THERAPY EA ADDL HR INFUSION [facility] [place] [address] Phone: tel: fax: [facility] [place] [address] Phone: tel: fax: Referral ID Status Reason Start Date Expiration Date V isits Requested Visits Authorized [id number] Pending Review 09/23/2020 15 15 Encounter Details Date Type Department Care Team (Late st Contact Info) Description 12/02/2020 2:30 PM CDT Treatment [facility] [place], [place] [address]86[address] Omar Johns MD [address] [place] [address] [phone] Infusion Therapy Social History Tobacco Use Types [...] [facility] Family Medicine - [place] 100 [place] [phone] Charla Campos PA-C [address] [place] [address] documented as of this encounter Visit [...]
--- OUTSIDE RECORDS SUMMARY | 2024-06-08 08:21 | XMS_ITS | Encounter Summary ---
Author Organization [facility] Address [address] [place] [address]. [place], [place] [address] [place] [address] Care Team Providers Care Steward/Stewardess Second Name Role Phone Unavailable Primary Care Provider [...] [facility] Family Medicine - [place] [phone] Charla Campos PA-C [address] [place] [address] documented as of this encounter Visit Diagnoses Not on filedocumented in this encounter
--- OUTSIDE RECORDS SUMMARY | 2024-06-08 08:21 | XMS_ITS | Encounter Summary ---
Author Organization [facility] Address [address] [place] [address]. [place] [address] [place] [address] Care Team Providers Care Helicopter Pilot Name Role Phone Unavailable Primary Care Provider Unavailabl e Reason for Visit * Auth/Cert Specialty Diagnoses / Procedures Referred By Yodit kenney Referred To Contact Diagnoses Ulcerative colitis ([facility] HHS/HCC) Ulcerative pancolitis without complication ([facility] HHS/[facility]) pancolitis, Ulcerative coliltis, frequent stools Procedures COLONOSCOPY Referral ID Status Reason Start Date Expiration Date Visits Re quested Visits Authorized [id number] 1 1 Encounter Details Date Type Department Care Team (Late st Contact Info) Description 08/24/2020 1:31 PM CDT Anesthesia Event [facility] [place] [address] Aimee Costa MD Anesthesia Record Procedure Summary Procedure Name Responsible Anesthesiologist Anesthesia Start Time Anesthesia Stop Time COLONOSCOPY WITH COLON BIOPSY VIA LARGE COLD FORCEP AND STOOL SAMPLE FOR CDIFF Aimee Costa MD 08/24/20 1331 08/24/20 1345 Events Date Time Event Comment 08/24/2020 1303 1303 AN Anesthesia Prepped 1319 AN HEALTH COUNSELOR Prepped 1325 An Start Data 1325 Nasal [...] PM CDT Anesthesia Post-op Note Paige Tova Kent Procedure(s): COLONOSCOPY WITH COLON BIOPSY VIA LARGE [...] perioperative care * Anesthesia Preprocedure Evaluation - Aieme Costa MD - 08/24/2020 5:05 AM CDT [...] Description 08/21/2024 4:00 PM CDT Office Visit [facility] Family Medicine - [place] 100 [place] [phone] Charla Campos PA-C [address] [place] [address] documented as of this encounter Visit Diagnoses [...]
--- OUTSIDE RECORDS SUMMARY | 2024-06-08 08:21 | XMS_ITS | Encounter Summary ---
Author Organization [facility] Address [address] [place] [address]. [place] [address] [place] [address] Care Team Providers Care Local Area Network Administrator Name Role Phone Unavailable Primary Care Provider Unavailabl e Reason for Visit * Reason Comments Infusion Therapy * Injection (Routine) - Pending Review Specialty Diagnoses / Procedures Referred By Yodit t Referred To Contact [facility] Infusion Therapy Diagnoses K51.0 Procedures INFLIXIMAB-DYYB 10MG IV SOLR (INFLECTRA) INTRAVENOUS INFUSION FOR THERAPY UP TO 1HR INTRAVENOUS INFUSION FOR THERAPY EA ADDL HR INFUSION [facility] [place] [address] Phone: tel: fax: [facility] [place] [address] Phone: tel: fax: Referral ID Status Reason Start Date Expiration Date V isits Requested Visits Authorized [id number] Pending Review 09/23/2020 15 15 Encounter Details Date Type Department Care Team (Late st Contact Info) Description 11/04/2020 2:30 PM CDT Treatment [facility]fusion [facility] [place], [place] 259[address] Omar Johns MD [address] [place] [address] [phone] Infusion Therapy Social History Tobacco Use Types [...] [facility] Family Medicine - [place] [address] [place] [phone] Charla Campos PA-C 100 [place] [address] documented as of this encounter [...]
--- OUTSIDE RECORDS SUMMARY | 2024-06-08 08:21 | XMS_ITS | Encounter Summary ---
Author Organization [facility] Address [facility] [place] [address] [place] [address] Care Team Providers Care Paving Bed Maker Name Role Phone Unavailable Primary Care Provider Unavailabl e Encounter Details Date Type Department Care Team (Late st Contact Info) Description 08/26/2020 Medication Management [facility] Medical Group Multispecialty Care - [address], [address] [place] [address] Omar Johns MD 3 [facility] [address] [place] [address] Social History Tobacco Use Types Packs/Day Years [...] [facility] Family Medicine - [place] [phone] Charla Campos PAZaheerC [address] [place] [address] documented as of this encounter Visit Diagnoses Not on filedocumented in this encounter
--- OUTSIDE RECORDS SUMMARY | 2024-06-08 08:21 | XMS_ITS | Encounter Summary ---
Author Organization [facility] Address [address] [place] [address]. [place] [address] [place] [address] Care Team Providers Care Director Of Retail Name Role Phone Unavailable Primary Care Provider Unavailabl e Reason for Visit * Reason Comments Infusion Therapy * Injection (Routine) - Pending Review Specialty Diagnoses / Procedures Referred By Yodit t Referred To Contact [facility] Infusion Therapy Diagnoses K51.0 Procedures INFLIXIMAB-DYYB 10MG IV SOLR (INFLECTRA) INTRAVENOUS INFUSION FOR THERAPY UP TO 1HR INTRAVENOUS INFUSION FOR THERAPY EA ADDL HR INFUSION [facility] [place] [address] Phone: tel: fax: [facility] [place] [address] Phone: tel: fax: Referral ID Status Reason Start Date Expiration Date V isits Requested Visits Authorized [id number] Pending Review 09/23/2020 15 15 Encounter Details Date Type Department Care Team (Late st Contact Info) Description 10/23/2020 1:30 PM CDT Treatment [facility] Infusion Services [place], [place] [phone] Seble Bliss NP 3 [facility]. [address] [id number] Infusion Therapy Social History Tobacco Use Types [...] [facility] Family Medicine - [place] [phone] Charla Campos PA-C [address] [place] [address] [phone] documented as of this encounter Visit Diagnoses [...]
--- OUTSIDE RECORDS SUMMARY | 2024-06-08 08:21 | XMS_ITS | Encounter Summary ---
Author Organization [facility] Address [address] [place] [address]. [place] [address] [place] [address] Care Team Providers Care Finance Attorney Name Role Phone Unavailable Primary Care Provider Unavailabl e Reason for Visit * Reason Onset Date Comments Medication 10/13/2020 Encounter Details Date Type Department Care Team (Late st Contact Info) Description 10/13/2020 Telephone [facility] Multispecialty Care - [address], [address] [place] [address] Omar Johns MD 3 [facility] [address] [place] [address] Medication Social History Tobacco Use Types Packs/Day [...] AM CDT Spoke with Joaquina Tavarez at [employer] patient has been approved for assistance with [employer]. Per Joaquina benefits will go back 90 days and will in 04/2021. ID # is [id number] Gr# [id number] she said a letter will be sent to patient and to the office. Patient was informed of approval. documented in this encounter Plan of Treatment Upcoming Encounters Date Type Department Care Team (Late st Contact Info) Description 08/21/2024 4:00 PM CDT Office Visit [facility] Medical [facility] Family Medicine - [place] [address] [place] [phone] Charla Campos PA-C [address] [place] [phone] documented as of this encounter Visit Diagnoses Not on filedocumented in this encounter
--- OUTSIDE RECORDS SUMMARY | 2024-06-08 08:21 | XMS_ITS | Encounter Summary ---
Author Organization [facility] Address [address] [place] [address]. [place] [address] [place] [address] Care Team Providers Care It Applications Analyst Name Role Phone Unavailable Primary Care Provider Unavailabl e Reason for Visit * Auth/Cert Specialty Diagnoses / Procedures Referred By Yodit kenney Referred To Contact Diagnoses Ulcerative colitis ([facility] HHS/HCC) Ulcerative pancolitis without complication ([facility] HHS/[facility]) pancolitis, Ulcerative coliltis, frequent stools Procedures COLONOSCOPY Referral ID Status Reason Start Date Expiration Date Visits Re quested Visits Authorized [id number] 1 1 Encounter Details Date Type Department Care Team (Late st Contact Info) Description 08/24/2020 11:40 AM CDT - 08/24/2020 12:00 PM CDT Surgery [facility] [place] [address] Omar Johns MD [address] [phone] COLONOSCOPY WITH COLON BIOPSY VIA LARGE COLD [...] through Care Everywhere. * Colonoscopy Discharge Instructions (Burundian) * Clostridioides difficile (Burundian) * Clostridioides difficile Discharge Instructions (Burundian) * General Anesthesia Discharge Instructions (Burundian) documented in this encounter Medications at Time [...] 06/28/2019 Dr. Omar Johns moderate to severe rede ulcerative colitis Past Surgical History: Procedure Laterality Date ??? COLONOSCOPY N/A 06/28/2019 COLONOSCOPY WITH BIOPSIES performed by Omar Johns MD at [facility] OR ulcerative pancolitis ??? TONSILLECTOMY No family [...] file Gets together: Not on file Attends protestant service: Not on file Active member of [...] Johns MD - 08/24/2020 1:53 PM CDT [facility] OpNote COLONOSCOPY WITH COLON BIOPSY VIA LARGE COLD FORCEP AND STOOL SAMPLE FOR CDIFF Procedure Note Paige Zavaleta 08/24/2020 1140 Procedure(s) (LRB): COLONOSCOPY WITH COLON BIOPSY VIA LARGE COLD FORCEP AND STOOL SAMPLE FOR CDIFF (N/A) Surgeon(s): Omar Jhons MD Staff: GI Nurse: Grace Castro RN general dentist/owner: Leeann Turk Anesthesia: General Anesthesiologist: Aimee Costa MD BUFF WHEEL FABRICATOR: Maria T Bowden CRNA Pre-Op Diagnosis: pancolitis, [...] [facility] Family Medicine - [place] [address] [place] [address] Charla Campos PA-C [address] [place] [address] documented as of this encounter Procedures Procedure Name Priority Date/Time Associated Diagnosis Comments HC EIA QL CLOS DIFF TOXIN AG Routine 08/24/2020 1:40 PM CDT COLONOSCOPY WITH BIOPSY 08/24/2020 1:33 PM CDT Ulcerative colitis ([facility] HHS/HCC) Ulcerative pancolitis without complication ([facility] HHS/[facility]) PATHOLOGY Routine 08/24/2020 12:00 AM CDT documented in this encounter Results * CLOSTRIDIUM DIFFICILE (08/24/2020 1:40 PM CDT) [facility] ANTIGEN NEGATIVE NEGATIVE 08/25/2020 7:34 AM CDT [facility] C DIFFICILE TOXIN A&B (STOOL) NEGATIVE NEGATIVE 08/25/2020 7:34 AM CDT [facility] COMMENT GDH NEGATIVE/TOXI N A & B NEGATIVE: NEGATIVE FOR TOXIGENIC C. DIFFICILE. 08/25/2020 7:34 AM CDT [facility] Stool specimen (specimen) STOOL SPECIMEN / Unknown 08/24/2020 1:40 PM CDT Comment:RULE OUT CDIFF Omar Johns MD BODY FLUIDS AND STOOLS ORDERABLE S Final Result [facility] 3 [place] [address], * Pathology (08/24/2020 12:00 AM CDT) COPATH REPORT ?[facility] ? [address] ? [place], [place] ??[address] ? [id number] ? Department of Pathology ? Pathology Report ? SURGICAL FINAL REPORT Patient Name: PAIGE ZAVALETA ? : 1995 (Age: 25) ? Location: [facility] Gender: F ?Collected Date: 08/24/2020 Med Rec #: [id number] ?Date Received: 08/24/2020 Date Reported: 08/25/2020 Provider: [...] in one cassette. : Billing Fee Code(s): 43995 [facility] Tissue specimen (specimen) COLON STRUCTURE / Unknown 08/24/2020 1:38 PM CDT us Omar Johns MD PATHOLOGY/CYTOLOGY ORDERABLES Fi nal Result [facility] 3 [place] [address], documented in this encounter Visit Diagnoses Diagnosis [...]
--- OUTSIDE RECORDS SUMMARY | 2024-06-08 08:21 | XMS_ITS | Encounter Summary ---
Author Organization [facility] Address [address] [place] [address]. [place] [address] [place] [address] Care Team Providers Care Tombstone Polisher Name Role Phone Unavailable Primary Care Provider Unavailabl e Reason for Visit * Reason Onset Date Comments Prior Authorization 09/28/2020 Encounter Details Date Type Department Care Team (Late st Contact Info) Description 09/28/2020 Telephone [facility] Medical Group Multispecialty Care - [address], [address] [place] [address] Omar Johns MD 3 [facility] [address] [place] [address] Prior Authorization Social History Tobacco Use Types [...] prescription and prior auth. Transferred call to [facility]. documented in this encounter Plan of Treatment Upcoming Encounters Date Type Department Care Team (Late st Contact Info) Description 08/21/2024 4:00 PM CDT Office Visit [facility] Medical Group Family Medicine - [place] 100 [place] [phone] Charla Campos PA-C [address] [place] [address] documented as of this encounter Visit Diagnoses Not on filedocumented in this encounter
--- OUTSIDE RECORDS SUMMARY | 2024-06-08 08:21 | XMS_ITS | Encounter Summary ---
Author Organization [facility] Address [address] [place] [address]. [place] [address] [place] [address] Care Team Providers Care Virtual Office Assistant Name Role Phone Unavailable Primary Care Provider Unavailabl e Reason for Visit * Reason Comments Ulcerative Colitis follow up WorkComp/Disability/FMLA Report (SCAN) n eds fmla foms * Consultation/Treatment (Routine) - Closed Specialty Diagnoses / Procedures Referred By Contact Referred To Contact NURSE PRACTITIONER / GASTROENTEROLOGY Diagnoses discuss colitis Procedures FOLLOW UP Karson Payne MD [address] [facility] [address] [place] [address] Phone: tel: fax: Seble Bliss NP 3 [facility]. [address] [address] Phone: tel:[phone] fax:[phone] Referral ID Status Reason Start Date Expiration Date Visits Re quested Visits Authorized [id number] Closed 07/23/2020 08/20/2021 100 100 Encounter Details Date Type Department Care Team (Latest Contact Info) Description 12/10/2020 1:00 PM CDT Office Visit [facility] Multispecialty Care - [facility] 3 [facility] [address] [place] [address] Omar Johns MD 3 [facility] [address] [place] [address] Ulcerative Colitis (follow up); WorkComp/Disability/ FMLA Report [...] performed by Omar Johns MD at [facility] OR ulcerative pancolitis ??? COLONOSCOPY N/A 08/24/2020 COLONOSCOPY WITH COLON BIOPSY VIA LARGE COLD FORCEP AND STOOL SAMPLE FOR CDIFF performed by Omar Hawk MD at [facility] ??? TONSILLECTOMY PE: Filed Vitals: 12/10/20 1258 [...] [facility] Family Medicine - [place] [address] Charla Campos PA-C [address] [place] [address] documented as of this encounter Visit Diagnoses Diagnosis Ulcerative pancolitis without complication (CMS/HCC HHS/HCC)- Primary documented in this encounter
--- OUTSIDE RECORDS SUMMARY | 2024-06-08 08:21 | XMS_ITS | Encounter Summary ---
Author Organization [facility] Address [facility] [place] [address] [place] [address] Care Team Providers Care Building Mover Name Role Phone Unavailable Primary Care Provider Unavailabl e Reason for Visit * Auth/Cert Specialty Diagnoses / Procedures Referred By Yodit kenney Referred To Contact Diagnoses Ulcerative colitis (CMS/HCC HHS/HCC) Ulcerative pancolitis without complication (CMS/HCC HHS/HCC) pancolitis, Ulcerative coliltis, frequent stools Procedures COLONOSCOPY Referral ID Status Reason Start Date Expiration Date Visits Re quested Visits Authorized [id number] 1 1 Encounter Details Date Type Department Care Team (Latest Contact Info) Description 08/24/2020 10:36 AM CDT - 08/24/2020 2:38 PM T Hospital Encounter [facility] [place] [address] Omar Johns MD [address] [address] Discharge Disposition: Home or Self Care (Routine [...] through Care Everywhere. * Colonoscopy Discharge Instructions (Burkinan) * Clostridioides difficile (Burkinan) * Clostridioides difficile Discharge Instructions (Burkinan) * General Anesthesia Discharge Instructions (Burkinan) documented in this encounter Medications at Time [...] BIOPSIES performed by Omar Johns MD at [facility] OR ulcerative pancolitis ??? TONSILLECTOMY [...] file Gets together: Not on file Attends lutheran service: Not on file Active member of [...] MD Staff: GI Nurse: Grace Castro RN metallography teacher: Leeann Luis Joshuaelizabeth Anesthesia: General Anesthesiologist: Aimee Costa MD CORPORATE PILOT: Maria T Bowden CRNA Pre-Op Diagnosis: pancolitis, [...] [facility] Family Medicine - [place] [phone] Charla Campos PA-C [address] [place] [address] documented as of this encounter Procedures Procedure Name Priority Date/Time Associated Diagnosis Comments HC EIA QL CLOS DIFF TOXIN AG Routine 08/24/2020 1:40 PM CDT COLONOSCOPY WITH BIOPSY 08/24/2020 1:33 PM CDT Ulcerative colitis (CMS/HCC HHS/HCC) Ulcerative pancolitis without complication (CMS/HCC HHS/HCC) PATHOLOGY Routine 08/24/2020 12:00 AM CDT documented in this encounter Results * CLOSTRIDIUM DIFFICILE (08/24/2020 1:40 PM CDT) Pathologist [facility] GD ANTIGEN NEGATIVE NEGATIVE 08/25/2020 7:[address] [facility] C DIFFICILE TOXIN A&B (STOOL) NEGATIVE NEGATIVE 08/25/2020 7:[address] [facility] COMMENT GDH NEGATIVE/TOXI N A & B NEGATIVE: NEGATIVE FOR TOXIGENIC C. DIFFICILE. 08/25/2020 7:[address]T [facility] Stool specimen (specimen) STOOL SPECIMEN / Unknown 08/24/2020 1:40 PM CDT Comment:RULE OUT CDIFF Omar Johns MD BODY FLUIDS AND STOOLS ORDERABLE S Final Result [facility] [address] [facility] [place] [address], * Pathology (08/24/2020 12:00 AM CDT) Pathologist [facility] COPATH REPORT ?[facility] ? [address] [facility] [address] ? [place] ??[address] ? [id number] ? Department of Pathology ? Pathology Report ? SURGICAL FINAL REPORT Patient Name: PAIGE ZAVALETA ? : 1995 (Age: 25) ? Location: [facility] Gender: F ?Collected Date: 08/24/2020 Med Rec #: [id number] ?Date Received: 08/24/2020 Date Reported: 08/25/2020 Provider: [...] in one cassette. : Billing Fee Code(s): 24586 [facility] Tissue specimen (specimen) COLON STRUCTURE / Unknown 08/24/2020 1:38 PM CDT us Omar Johns MD PATHOLOGY/CYTOLOGY ORDERABLES Fi nal Result [facility] 3 [place] [address], [place] [phone] documented in this encounter Visit Diagnoses Diagnosis [...]
--- OUTSIDE RECORDS SUMMARY | 2024-06-08 08:21 | XMS_ITS | Encounter Summary ---
Author Organization [facility] Address [facility] [place] [address] [place] [address] Care Team Providers Care Cellar Supervisor Name Role Phone Unavailable Primary Care Provider Unavailabl e Encounter Details Date Type Department Care Team (Late st Contact Info) Description 09/28/2020 Orders Only [facility] Medical Group Multispecialty Care - [address], [address] [place] [address] Seble Bliss, JORI 3 [facility]. [address] [place] [address] Social History Tobacco Use Types Packs/Day Years [...] [facility] Family Medicine - [place] 100 [place] [phone] Charla Campos PA-C 100 [place] [address] documented as of this encounter Visit Diagnoses Diagnosis Ulcerative pancolitis without complication (CMS/HCC HHS/HCC) documented in this encounter
--- OUTSIDE RECORDS SUMMARY | 2024-06-08 08:21 | XMS_ITS | Encounter Summary ---
Author Organization [facility] Address [address] [place] [address]. [place], [place] [address] [place] [address] Care Team Providers Care Government Documents Librarian Name Role Phone Unavailable Primary Care Provider [...] [facility] Family Medicine - [place] [phone] Charla Campos PA-C [address] [place] [phone] documented as of this encounter Visit Diagnoses Not on filedocumented in this encounter
--- OUTSIDE RECORDS SUMMARY | 2024-06-08 08:22 | XMS_ITS | Encounter Summary ---
Author Organization [facility] Address [facility] [place] [place] [address] [place] [address] Care Team Providers Care Subassembler Name Role Phone Unavailable Primary Care Provider Unavailabl e Encounter Details Date Type Department Care Team ([facility] Contact Info) Description 11/12/2019 Orders Only [facility] Medical Group Multispecialty Care - [address], [address] [place] [address] Seble Bliss, JORI 3 [facility]. [address] [place] [address] Social History Tobacco Use Types Packs/Day Years [...] [facility] Family Medicine - [place] [phone] Charla Campos PA-C [address] [place] [phone] documented as of this encounter Visit Diagnoses Diagnosis Ulcerative pancolitis without complication (CMS/HCC HHS/HCC) documented in this encounter
--- OUTSIDE RECORDS SUMMARY | 2024-06-08 08:22 | XMS_ITS | Encounter Summary ---
Author Organization [facility] Address [address] [place] [address]. [place] [address] [place] [address] Care Team Providers Care Hospital Technician Name Role Phone Unavailable Primary Care Provider Unavailabl e Encounter Details Date Type Department Care Team (Latest Contact Info) Description 07/23/2020 4:12 PM ANESTHESIOLOGIST/PHYSICIAN - 07/23/2020 11:59 PM ANESTHESIOLOGIST/PHYSICIAN Hospital Encounter [facility] [place], [place] [address] Seble Bliss, JORI 3 [facility]. [address] [place], [place] [address] Discharge Disposition: Home or Self Care (Routine [...] COVID-19? No / Unsure 07/23/2020 2:43 PM ANESTHESIOLOGIST/PHYSICIAN documented as of this encounter Medications at [...] colonoscopy to evaluate status of ulcerative colitis. THESIOLOGIST/PHYSICIAN documented in this encounter Plan of Treatment Upcoming Encounters Date Type Department Care Team (Late st Contact Info) Description 08/21/2024 4:00 PM CDT Office Visit [facility] Medical [facility] Family Medicine - [place] [phone] Charla Campos PA-C [address] [place] [phone] documented as of this encounter Procedures Procedure Name Priority Date/Time Associated Diagnosis Comments COMPREHENSIVE METABOLIC PANEL Routine 07/23/2020 4:19 PM ANESTHESIOLOGIST/PHYSICIAN Ulcerative colitis ([facility]) C-REACTIVE PROTEIN Routine 07/23/2020 4: 19 PM ANESTHESIOLOGIST/PHYSICIAN Ulcerative colitis ([facility]) CBC W/DIFF AUTOMATED Routine 07/23/2020 4:19 PM ANESTHESIOLOGIST/PHYSICIAN Ulcerative colitis ([facility]) documented in this encounter Results * (ABNORMAL) C-REACTIVE PROTEIN (07/23/2020 4:19 PM ANESTHESIOLOGIST/PHYSICIAN) C-REACTIVE PROTEIN 0.80(H) <0.29 mg/dL 07/23/2020 4:57 PM ANESTHESIOLOGIST/PHYSICIAN [facility] 07/23/2020 4:19 PM ANESTHESIOLOGIST/PHYSICIAN us Seble Bliss NP LABORATORY Final Result [facility] 3 [place] [address], [place] [phone] * (ABNORMAL) COMPREHENSIVE METABOLIC PANEL (07/23/2020 4:19 PM ANESTHESIOLOGIST/PHYSICIAN) [facility] GLUCOSE 78 70 - 99 MG/DL 07/23/2020 4:57 PM ANESTHESIOLOGIST/PHYSICIAN [facility] BUN 9 7 - 18 MG/DL 07/23/2020 4:57 PM [facility] CREATININE S/P/B 0.78 0.55 - 1.02 MG/DL 07/23/2020 4:57 PM [facility] SODIUM S/P/B 137 136 - 145 MMOL/L 07/23/2020 4:57 PM [facility] POTASSIUM S/P/B 3.8 3.5 - 5.1 MMOL/L 07/23/2020 4:57 PM [facility] CHLORIDE S/P/B 106 100 - 108 MMOL/L 07/23/2020 4:57 PM [facility] CO2 24.5 21 - 32 MMOL/L 07/23/2020 4:57 PM [facility] CALCIUM S/P/B 9.4 8.5 - 10.1 MG/DL 07/23/2020 4:57 PM [facility] BILIRUBIN TOTAL S/P/B 0.4 0.2 - 1.2 MG/DL 07/23/2020 4:57 PM [facility] Comment: THIS ASSAY IS NOT RECOMMENDED FOR PATIENTS UNDERGOING TREATMENT WITH ELTROMBOPAG DUE TO THE POTENTIAL FOR FALSELY ELEVATED RESULTS. TOTAL PROTEIN S/P/B 7.9 6.4 - 8.2 G/DL 07/23/2020 4:57 PM [facility] ALBUMIN S/P/B 3.7 3.4 - 5.0 G/DL 07/23/2020 4:57 PM ANESTHESIOLOGIST/PHYSICIAN [facility] AST 11(L) 15 - 37 U/L 07/23/2020 4:57 PM ANESTHESIOLOGIST/PHYSICIAN [facility] ALT 14 14 - 55 U/L 07/23/2020 4:57 PM [facility] ALKALINE PHOSPHATASE S/P/B 70 50 - 136 U/L 07/23/2020 4:57 PM ANESTHESIOLOGIST/PHYSICIAN [facility] ANION GAP 6.5 5 - 15 MMOL/L 07/23/2020 4:57 PM [facility] BUN CREATININE RATIO 11.5 6 - 26 07/23/2020 4:57 PM [facility] A/G RATIO 0.9(L) 1.0 - 2.0 RATIO 07/23/2020 4:57 PM [facility] EGFR NON-AFR. AMER. >90 >90 ML/MIN/1.7 3 M2 07/23/2020 4:57 PM [facility] EGFR AFR. AMER. >90 >90 ML/MIN/1.7 3 M2 07/23/2020 4:57 PM [facility] Comment: NOTE: eGFR is not calculated for patients <18 years of age. This is an estimated GFR (CKD EPI) and should not be used for calculating drug doses. 07/23/2020 4:19 PM ANESTHESIOLOGIST/PHYSICIAN us Seble Bliss NP LABORATORY Final Result [facility] 3 [place] [address], * (ABNORMAL) CBC W/DIFF AUTOMATED (07/23/2020 4:19 PM ANESTHESIOLOGIST/PHYSICIAN) WBC 13.2(H) 4.5 - 11.0 x10'3/uL 07/23/2020 4:35 PM [facility] RBC 4.79 4.20 - 5.40 x10'6/uL 07/23/2020 4:35 PM [facility] HGB 13.9 12.0 - 16.0 G/DL 07/23/2020 4:35 PM [facility] HCT 42.1 38.0 - 48.0 % 07/23/2020 4:35 PM [facility] MCV 87.9 81.0 - 99.0 FL 07/23/2020 4:35 PM [facility] MCH 29.0 27.0 - 31.0 PG 07/23/2020 4:35 PM [facility] MCHC 33.0 32.0 - 36.0 G/DL 07/23/2020 4:35 PM [facility] RDW 12.9 11.5 - 14.5 % 07/23/2020 4:35 PM [facility] PLT 331 130 - 400 x10'3/uL 07/23/2020 4:35 PM [facility] MPV 9.8 9.3 - 12.2 FL 07/23/2020 4:35 PM [facility] DIFFERENTIAL TYPE AUTOMATED DIFFERENTIAL 07/23/2020 4:35 PM [facility] NEUTROPHILS % 54.1 % 07/23/2020 4:35 PM [facility] LYMPHOCYTES % 32.0 % 07/23/2020 4:35 PM [facility] MONOCYTES % 10.0 % 07/23/2020 4:35 PM [facility] EOSINOPHILS 2.9 % 07/23/2020 4:35 PM [facility] BASOPHILS 0.7 % 07/23/2020 4:35 PM ANESTHESIOLOGIST/PHYSICIAN [facility] IMMATURE GRANS % 0.3 % 07/23/19 4:35 PM ANESTHESIOLOGIST/PHYSICIAN [facility] ABS. NEUTROPHILS TOTAL 7.17 1.80 - 7.70 x10'3/uL 07/23/2020 4:35 PM ANESTHESIOLOGIST/PHYSICIAN [facility] ABS. LYMPHOCYTES 4.24 1.00 - 4.80 x10'3/uL 07/23/2020 4:35 PM ANESTHESIOLOGIST/PHYSICIAN [facility] ABS. MONOCYTES 1.32(H) 0.24 - 0.86 x10'3/uL 07/23/2020 4:35 PM ANESTHESIOLOGIST/PHYSICIAN [facility] ABS. EOSINOPHILS 0.38(H) 0.04 - 0.36 x10'3/uL 07/23/2020 4:35 PM ANESTHESIOLOGIST/PHYSICIAN [facility] ABS. BASOPHILS 0.09(H) 0.01 - 0.08 x10'3/uL 07/23/2020 4:35 PM ANESTHESIOLOGIST/PHYSICIAN [facility] ABS. IMMATURE GRANULOCYTES 0.04 0.00 - 0.49 x10'3/uL 07/23/2020 4:35 PM [facility] 07/23/2020 4:19 PM ANESTHESIOLOGIST/PHYSICIAN Seble Bliss NP LABORATORY Final Result [facility] 3 [place] [address], [place] [phone] documented in this encounter Visit Diagnoses Diagnosis Ulcerative colitis ([facility]/HCC [facility]/HCC) Ulcerative colitis, unspecified documented in this encounter
--- OUTSIDE RECORDS SUMMARY | 2024-06-08 08:22 | XMS_ITS | Encounter Summary ---
Author Organization [facility] Address [facility] [place] [address] [place] [address] Care Team Providers Care Protective Service Specialist Name Role Phone Unavailable Primary Care [...] [facility] - [place] 100 [place] [phone] Charla Campos PA-C 100 [place] [address] documented as of this encounter Visit Diagnoses Not on filedocumented in this encounter
--- OUTSIDE RECORDS SUMMARY | 2024-06-08 08:22 | XMS_ITS | Encounter Summary ---
Author Organization [facility] Address [id number] [place] [address] [place] [address] Care Team Providers Care Mineral Economist Name Role Phone Unavailable Primary Care Provider Unavailabl e Reason for Visit * Reason Onset Date Comments Medication Problem 02/17/2020 Encounter Details Date Type Department Care Team (Late st Contact Info) Description 02/17/2020 Telephone [facility] Multispecialty Care - [address], [address] [place] [address] Seble Bliss NP 3 [facility]. 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 Tech at [facility] states she will call pt and let [...] [facility] - [place] [address] [place] [phone] Charla Campos PA-C [address] [place] [phone] documented as of this encounter Visit Diagnoses Not on filedocumented in this encounter
--- OUTSIDE RECORDS SUMMARY | 2024-06-08 08:22 | XMS_ITS | Encounter Summary ---
Author Organization [facility] Address [address] [place] [address]. [place] [address] [place] [address] Care Team Providers Care School Counsellor Name Role Phone Unavailable Primary Care Provider Unavailabl e Reason for Visit * Reason Onset Date Comments Medication 07/24/2019 Humira Encounter Details Date Type Department Care Team (Late st Contact Info) Description 07/24/2019 Telephone [facility] Multispecialty Care - [facility] 3 [facility], [address] [place] [address] Seble Ratliff NP 3 [facility]. [address] [place] [address] Medication (Humira) Social History Tobacco Use Types [...] 07/01/2019- 10/29/2019. Patient informed and Margott informed GROOVER * Bhakti Alvarez - 07/31/2019 1:19 PM CST Patient called in, waiting on authorization for the medication Humira. Margott has not received authorization. Patient said alfredo has faxed over the prePax8 4 times to us and they are not getting a response from us. Please follow up with patient and margott. GROOVER * Xochitl Escobedo - 07/26/2019 1:56 PM CST Spoke with pharmacist she was told that we are working on trying to get the medication approved forthe patient. GROOVER GROOVER * Amanda Villegas - 07/26/2019 10:43 AM CST [facility] called as in order to fill Humria prescription they need an auth, they sent over paperwork. Please follow up with Griselda at [facility] @[phone] GROOVER * Seble Ratliff NP - 07/24/2019 3:31 PM CSTAddended by: SEBLE RATLIFF on: 07/24/2019 03:31 PM Modules accepted: Orders GROOVER * Seble Ratliff NP - 07/24/2019 3:23 PM CSTAddended by: SEBLE RATLIFF on: 07/24/2019 03:23 PM Modules accepted: Orders GROOVER * Seble Ratliff NP - 07/24/2019 3:18 PM CST Called patient and she notes that she would like to have the prescription sent to [facility].Patient does have a pharmacy discount card [...] in 1 week for next 2 weeks. GROOVER GROOVER * Alee Hein - 07/24/2019 7:43 AM [...] we send the medication to the pharmacy. GROOVER documented in this encounter Plan of Treatment Upcoming Encounters Date Type Department Care Team (Late st Contact Info) Description 08/21/2024 4:00 PM CDT Office Visit [facility] Family Medicine - [place] 100 [place] [phone] Charla Campos PA-C [address] [place] [phone] documented as of this encounter Results * (ABNORMAL) CBC W/DIFF AUTOMATED (10/31/2019 3:50 PM CDT) WBC 10.2 4.5 - 11.0 x10'3/uL 10/31/2019 4:[address] [facility] RBC 4.92 4.20 - 5.40 x10'6/uL 10/31/2019 4:[address] [facility] HGB 14.0 12.0 - 16.0 G/DL 10/31/2019 4:[address] [facility] HCT 41.5 38.0 - 48.0 % 10/31/2019 4:[address] [facility] MCV 84.3 81.0 - 99.0 FL 10/31/2019 4:[address] [facility] MCH 28.5 27.0 - 31.0 PG 10/31/2019 4:[address] [facility] MCHC 33.7 32.0 - 36.0 G/DL 10/31/2019 4:[address] [facility] RDW 13.1 11.5 - 14.5 % 10/31/2019 4:[address] [facility] PLT 340 130 - 400 x10'3/uL 10/31/2019 4:[address] [facility] MPV 9.7 9.3 - 12.2 FL 10/31/2019 4:[address] [facility] DIFFERENTIAL TYPE AUTOMATED DIFFERENTIAL 10/31/2019 4:[address] [facility] NEUTROPHILS % 41.1 % 10/31/2019 4:[address] [facility] LYMPHOCYTES % 46.4 % 10/31/2019 4:[address] [facility] MONOCYTES % 9.5 % 10/31/2019 4:[address] [facility] EOSINOPHILS 2.0 % 10/31/2019 4:[address] [facility] BASOPHILS 0.8 % 10/31/2019 4:[address] [facility] IMMATURE GRANS % 0.2 % 10/31/19 20 4:[address] [facility] ABS. NEUTROPHILS TOTAL 4.19 1.80 - 7.70 x10'3/uL 10/31/2019 4:[address] [facility] ABS. LYMPHOCYTES 4.72 1.00 - 4.80 x10'3/uL 10/31/2019 4:[address] [facility] ABS. MONOCYTES 0.97(H) 0.24 - 0.86 x10'3/uL 10/31/2019 4:[address] [facility] ABS. EOSINOPHILS 0.20 0.04 - 0.36 x10'3/uL 10/31/2019 4:[address] [facility] ABS. BASOPHILS 0.08 0.01 - 0.08 x10'3/uL 10/31/2019 4:[address] [facility] ABS. IMMATURE GRANULOCYTES 0.02 0.00 - 0.49 x10'3/uL 10/31/2019 4:[address] [facility] 10/31/2019 3:50 PM CDT Seble Ratliff NP LABORATORY Final Result [facility] 3 [place] [address], [place] [phone] * (ABNORMAL) CBC W/DIFF AUTOMATED (08/09/2019 2:04 PM CDT) WBC 12.0(H) 4.5 - 11.0 x10'3/uL 08/09/2019 2:[address] [facility] RBC 4.75 4.20 - 5.40 x10'6/uL 08/09/2019 2:[address] [facility] HGB 13.6 12.0 - 16.0 G/DL 08/09/2019 2:[address] [facility] HCT 41.2 38.0 - 48.0 % 08/09/2019 2:[address] [facility] MCV 86.7 81.0 - 99.0 FL 08/09/2019 2:[address] [facility] MCH 28.6 27.0 - 31.0 PG 08/09/2019 2:[address] [facility] MCHC 33.0 32.0 - 36.0 G/DL 08/09/2019 2:[address] [facility] RDW 13.1 11.5 - 14.5 % 08/09/2019 2:[address] [facility] PLT 299 130 - 400 x10'3/uL 08/09/2019 2:[address] [facility] MPV 9.4 9.3 - 12.2 FL 08/09/2019 2:[address] [facility] DIFFERENTIAL TYPE AUTOMATED DIFFERENTIAL 08/09/2019 2:[address] [facility] NEUTROPHILS % 60.9 % 08/09/2019 2:[address] [facility] LYMPHOCYTES % 27.8 % 08/09/2019 2:[address] [facility] MONOCYTES % 8.8 % 08/09/2019 2:[address] [facility] EOSINOPHILS 1.5 % 08/09/2019 2:[address] [facility] BASOPHILS 0.6 % 08/09/2019 2:[address] [facility] IMMATURE GRANS % 0.4 % 08/09/19 20 2:[address] [facility] ABS. NEUTROPHILS TOTAL 7.29 1.80 - 7.70 x10'3/uL 08/09/2019 2:[address] [facility] ABS. LYMPHOCYTES 3.33 1.00 - 4.80 x10'3/uL 08/09/2019 2:[address] [facility] ABS. MONOCYTES 1.06(H) 0.24 - 0.86 x10'3/uL 08/09/2019 2:[address] [facility] ABS. EOSINOPHILS 0.18 0.04 - 0.36 x10'3/uL 08/09/2019 2:[address] [facility] ABS. BASOPHILS 0.07 0.01 - 0.08 x10'3/uL 08/09/2019 2:[address] [facility] ABS. IMMATURE GRANULOCYTES 0.05 0.00 - 0.49 x10'3/uL 08/09/2019 2:[address] [facility] 08/09/2019 2:04 PM CDT Seble Ratliff NP LABORATORY Final Result [facility] 3 [place] [address], [place] [phone] documented in this encounter Visit Diagnoses Diagnosis Ulcerative pancolitis without complication (CMS/HCC HHS/HCC)- Primary documented in this encounter
--- OUTSIDE RECORDS SUMMARY | 2024-06-08 08:22 | XMS_ITS | Encounter Summary ---
Author Organization [facility] Address [address] [place] [address]. [place], [place] [address] [place] [address] Care Team Providers Care Training Development Specialist Name Role Phone Unavailable Primary Care Provider Unavailabl e Reason for Visit * Reason Onset Date Comments Medication 04/02/2020 Encounter Details Date Type Department Care Team (Late st Contact Info) Description 04/02/2020 Telephone [facility] Multispecialty Care - [facility] 3 [facility], [address] [place] [address] Omar Johns MD 3 [facility] [address] [place] [address] Medication Social History Tobacco Use Types Packs/Day [...] been approved with [employer] through 06/22/2020. SITING MACHINE OPERATOR documented in this encounter Plan of Treatment Upcoming Encounters Date Type Department Care Team (Late st Contact Info) Description 08/21/2024 4:00 PM CDT Office Visit [facility] Family Medicine - [place] [phone] Charla Campos PA-C [address] [place] [address] documented as of this encounter Visit Diagnoses Not on filedocumented in this encounter
--- OUTSIDE RECORDS SUMMARY | 2024-06-08 08:22 | XMS_ITS | Encounter Summary ---
Author Organization [facility] Address [address] [place] [address]. [place], [place] [address] [place] [address] Care Team Providers Care Auto Battery Builder Name Role Phone Unavailable Primary Care Provider [...] COVID-19? No / Unsure 07/23/2020 2:43 PM STUDENT OFFICER documented as of this encounter Plan of Treatment Upcoming Encounters Date Type Department Care Team (Late st Contact Info) Description 08/21/2024 4:00 PM CDT Office Visit [facility] Family Medicine - [place] 100 [place] [phone] Charla Campos PA-C [address] [place] [address] documented as of this encounter Visit Diagnoses Not on filedocumented in this encounter
--- OUTSIDE RECORDS SUMMARY | 2024-06-08 08:22 | XMS_ITS | Encounter Summary ---
Author Organization [facility] Address [address] [place] [address]. [place] [address] [place] [address] Care Team Providers Care Critical Care Transport Nurse Name Role Phone Unavailable Primary Care Provider Unavailabl e Reason for Visit * Reason Onset Date Comments Medication Problem 08/06/2020 Encounter Details Date Type Department Care Team (Late st Contact Info) Description 08/06/2020 Telephone [facility] - [facility] 3 [facility], [address] [place] [address] Seble Ratliff NP 3 [facility]. [address] [place] [address] Medication Problem Social History Tobacco Use Types [...] COVID-19? No / Unsure 07/23/2020 2:43 PM PATTERNMAKER APPRENTICE WOOD documented as of this encounter Progress Notes * Seble Ratliff NP - 08/07/2020 10:04 AM CSTAddended by: SEBLE RATLIFF on: 08/07/2020 10:04 AM Modules accepted: Orders ERNMAKER APPRENTICE WOOD * Xochitl Escobedo - 08/07/2020 10:01 AM CSTAddended by: XOCHITL ESCOBEDO on: 08/07/2020 10:01 AM Modules accepted: Orders ERNMAKER APPRENTICE WOOD * Xochitl Escobedo - 08/07/2020 9:57 AM CST Matt is pending for approval to the pharmacy. ERNMAKER APPRENTICE WOOD * Leonardo Barboza - 08/06/2020 3:59 PM CST Patient called and stated that the prescription that was sent over was too expensive and she would like it switched to the larger quantity(gallon) because it is more affordable. Please give PT a callback to discuss ERNMAKER APPRENTICE WOOD documented in this encounter Plan of Treatment Upcoming Encounters Date Type Department Care Team (Late st Contact Info) Description 08/21/2024 4:00 PM CDT Office Visit [facility] Family Medicine - [place] [address] [place] [phone] Charla Campos PA-C [address] [place] [address] documented as of this encounter Visit Diagnoses Diagnosis Ulcerative pancolitis with rectal bleeding ([facility]/HCC [facility]/HCC)- Primary Bloody diarrhea Diarrhea Chronic diarrhea Diarrhea Generalized abdominal pain Abdominal pain, generalized documented in this encounter
--- OUTSIDE RECORDS SUMMARY | 2024-06-08 08:22 | XMS_ITS | Encounter Summary ---
Author Organization [facility] Address [facility] [place] [address] [place] [address] Care Team Providers Care After School Program Teacher Name Role Phone Unavailable Primary Care [...] [facility] - [place] 100 [place] [address] Charla Campos PA-C 100 [place] [address] documented as of this encounter Visit Diagnoses Not on filedocumented in this encounter
--- OUTSIDE RECORDS SUMMARY | 2024-06-08 08:22 | XMS_ITS | Encounter Summary ---
Author Organization [facility] Address [address] [place] [address]. [place], [place] [address] [place] [address] Care Team Providers Care Wood Cutter Name Role Phone Unavailable Primary Care Provider Unavailabl e Reason for Visit * Reason Onset Date Comments Medication Request 08/02/2019 Encounter Details Date Type Department Care Team (Late st Contact Info) Description 08/02/2019 Telephone [facility] Group Multispecialty Care - [facility] 3 [facility], [address] [place] [address] Omar Johns MD 3 [facility] [address] [place] [address] Medication Request Social History Tobacco Use Types [...] Xochitl Escobedo - 08/02/2019 11:38 AM CST [facility] would like an eprescrition be sent over on the Humira. ICTIVE MAINTENANCE SPECIALIST * Omar Johns MD - 08/02/2019 11:09 AM CST yes ICTIVE MAINTENANCE SPECIALIST * Xochitl Escobedo - 08/02/2019 8:41 AM CST Spoke with Garcia at [facility] patient's Humira prescriptions will need to be sent to [facility] mail order pharmacy. [facility]. ICTIVE MAINTENANCE SPECIALIST documented in this encounter Plan of Treatment Upcoming Encounters Date Type Department Care Team (Late st Contact Info) Description 08/21/2024 4:00 PM CDT Office Visit [facility] Medical Group Family Medicine - [place] 100 [place] [phone] Charla Campos PA-C 100 [facility] [place] [address] documented as of this encounter Visit Diagnoses Not on filedocumented in this encounter
--- OUTSIDE RECORDS SUMMARY | 2024-06-08 08:22 | XMS_ITS | Encounter Summary ---
Author Organization [facility] Address [address] [place] [address]. [place] [address] [place] [address] Care Team Providers Care Cartridge Maker Name Role Phone Unavailable Primary Care Provider Unavailabl e Encounter Details Date Type Department Care Team (Latest Contact Info) Description 10/31/2019 3:34 PM CDT - 10/31/2019 11:59 PM CDT Hospital Encounter [facility] [place], [place] [phone] Seble Bliss, JORI 3 [facility]. [address] [place], [place] [address] Discharge Disposition: Home or Self Care (Routine [...] [facility] Family Medicine - [place] [phone] Charla Campos PA-C [address] [place] [address] documented as of this encounter Procedures Procedure Name Priority Date/Time Associated Diagnosis Comments TSH W/REFLEX Routine 10/31/2019 3:50 PM CDT Fatigue, unspecified type CBC W/DIFF AUTOMATED Routine 10/31/2019 3:50 PM CDT Ulcerative pancolitis without complication (CMS/HCC HHS/HCC) documented in this encounter Results * (ABNORMAL) CBC W/DIFF AUTOMATED (10/31/2019 3:50 PM CDT) WBC 10.2 4.5 - 11.0 x10'3/uL 10/31/2019 4:12 PM CDT [facility] RBC 4.92 4.20 - 5.40 x10'6/uL 10/31/2019 4:12 PM CDT [facility] HGB 14.0 12.0 - 16.0 G/DL 10/31/2019 4:12 PM CDT [facility] HCT 41.5 38.0 - 48.0 % 10/31/2019 4:12 PM CDT [facility] MCV 84.3 81.0 - 99.0 FL 10/31/2019 4:12 PM CDT [facility] MCH 28.5 27.0 - 31.0 PG 10/31/2019 4:12 PM CDT [facility] MCHC 33.7 32.0 - 36.0 G/DL 10/31/2019 4:12 PM CDT [facility] RDW 13.1 11.5 - 14.5 % 10/31/2019 4:12 PM CDT [facility] PLT 340 130 - 400 x10'3/uL 10/31/2019 4:12 PM CDT [facility] MPV 9.7 9.3 - 12.2 FL 10/31/2019 4:12 PM CDT [facility] DIFFERENTIAL TYPE AUTOMATED DIFFERENTIAL 10/31/2019 4:12 PM CDT [facility] NEUTROPHILS % 41.1 % 10/31/2019 4:12 PM CDT [facility] LYMPHOCYTES % 46.4 % 10/31/2019 4:12 PM CDT [facility] MONOCYTES % 9.5 % 10/31/2019 4:12 PM CDT [facility] EOSINOPHILS 2.0 % 10/31/2019 4:12 PM CDT [facility] BASOPHILS 0.8 % 10/31/2019 4:12 PM CDT [facility] IMMATURE GRANS % 0.2 % 10/31/19 20 4:12 PM CDT [facility] ABS. NEUTROPHILS TOTAL 4.19 1.80 - 7.70 x10'3/uL 10/31/2019 4:12 PM CDT [facility] ABS. LYMPHOCYTES 4.72 1.00 - 4.80 x10'3/uL 10/31/2019 4:12 PM CDT [facility] ABS. MONOCYTES 0.97(H) 0.24 - 0.86 x10'3/uL 10/31/2019 4:12 PM CDT [facility] ABS. EOSINOPHILS 0.20 0.04 - 0.36 x10'3/uL 10/31/2019 4:12 PM CDT [facility] ABS. BASOPHILS 0.08 0.01 - 0.08 x10'3/uL 10/31/2019 4:12 PM CDT [facility] ABS. IMMATURE GRANULOCYTES 0.02 0.00 - 0.49 x10'3/uL 10/31/2019 4:12 PM CDT [facility] 10/31/2019 3:5 0 PM CDT us Seble Bliss NP LABORATORY Final Result [facility] 3 [place] [address], [place] [phone] * TSH W/REFLEX (10/31/2019 3:50 PM CDT) TSH 1.380 0.358 - 3.74 uIU/ML 10/31/2019 4:39 PM CDT [facility] Comment: HIGH DOSES OF BIOTIN MAY INTERFERE WITH THIS TEST RESULT. CORRELATION TO CLINICAL HISTORY AND PRESENTATION RECOMMENDED. FREE T4 NOT INDICATED 10/31/2019 3:50 PM CDT us Karson Payne MD LABORATORY Final Resul t [facility] 3 [place] [address], [place] [phone] documented in this encounter Visit Diagnoses Diagnosis Fatigue, unspecified type Ulcerative pancolitis without complication (CMS/HCC HHS/HCC) documented in this encounter
--- OUTSIDE RECORDS SUMMARY | 2024-06-08 08:22 | XMS_ITS | Encounter Summary ---
Author Organization [facility] Address [address] [place] [address]. [place] [address] [place] [address] Care Team Providers Care Supervisor Smoke Control Name Role Phone Unavailable Primary Care Provider Unavailabl e Encounter Details Date Type Department Care Team (Latest Contact Info) Description 08/09/2019 1:55 PM CDT - 08/09/2019 11:59 PM CDT Hospital Encounter [facility] [place], [place] [address] Seble Bliss, JORI 3 [facility]. [address] [place], [place] [address] Discharge Disposition: Home or Self Care (Routine [...] MG/0.4ML pen-injector kitIndications:Ulcer ative pancolitis without complication ([facility]/HCC [facility]) Citrate free formula. Inject 40 [...] arranged for shipping of the medication from [facility] pharmacy. Notes it should be arrived on [...] [facility] Family Medicine - [place] [phone] Charla Campos PA-C [address] [place] [phone] documented as of this encounter Procedures Procedure Name Priority Date/Time Associated Diagnosis Comments CBC W/DIFF AUTOMATED Routine 08/09/2019 2:04 PM CDT Ulcerative pancolitis without complication ([facility]/HCC [facility]) documented in this encounter Results * (ABNORMAL) CBC W/DIFF AUTOMATED (08/09/2019 2:04 PM CDT) WBC 12.0(H) 4.5 - 11.0 x10'3/uL 08/09/2019 2:[address] [facility] RBC 4.75 4.20 - 5.40 x10'6/uL 08/09/2019 2:[address] [facility] HGB 13.6 12.0 - 16.0 G/DL 08/09/2019 2:[address] [facility] HCT 41.2 38.0 - 48.0 % 08/09/2019 2:[address] [facility] MCV 86.7 81.0 - 99.0 FL 08/09/2019 2:[address] [facility] MCH 28.6 27.0 - 31.0 PG 08/09/2019 2:[address] [facility] MCHC 33.0 32.0 - 36.0 G/DL 08/09/2019 2:[address] [facility] RDW 13.1 11.5 - 14.5 % 08/09/2019 2:[address] [facility] PLT 299 130 - 400 x10'3/uL 08/09/2019 2:[address] [facility] MPV 9.4 9.3 - 12.2 FL 08/09/2019 2:[address] [facility] DIFFERENTIAL TYPE AUTOMATED DIFFERENTIAL 08/09/2019 2:[address] [facility] NEUTROPHILS % 60.9 % 08/09/2019 2:[address] [facility] LYMPHOCYTES % 27.8 % 08/09/2019 2:[address] [facility] MONOCYTES % 8.8 % 08/09/2019 2:[address] [facility] EOSINOPHILS 1.5 % 08/09/2019 2:[address] [facility] BASOPHILS 0.6 % 08/09/2019 2:[address] [facility] IMMATURE GRANS % 0.4 % 08/09/19 20 2:[address] [facility] ABS. NEUTROPHILS TOTAL 7.29 1.80 - 7.70 x10'3/uL 08/09/2019 2:[address] [facility] ABS. LYMPHOCYTES 3.33 1.00 - 4.80 x10'3/uL 08/09/2019 2:[address] [facility] ABS. MONOCYTES 1.06(H) 0.24 - 0.86 x10'3/uL 08/09/2019 2:[address] [facility] ABS. EOSINOPHILS 0.18 0.04 - 0.36 x10'3/uL 08/09/2019 2:[address] [facility] ABS. BASOPHILS 0.07 0.01 - 0.08 x10'3/uL 08/09/2019 2:[address] [facility] ABS. IMMATURE GRANULOCYTES 0.05 0.00 - 0.49 x10'3/uL 08/09/2019 2:[address] [facility] 08/09/2019 2:04 PM CDT Seble Bliss NP LABORATORY Final Result [facility] 3 [place] [address], [place] [phone] documented in this encounter Visit Diagnoses Diagnosis Ulcerative pancolitis without complication (CMS/HCC HHS/HCC) documented in this encounter
--- OUTSIDE RECORDS SUMMARY | 2024-06-08 08:22 | XMS_ITS | Encounter Summary ---
Author Organization [facility] Address [address] [place] [address]. [place] [address] [place] [address] Care Team Providers Care Snowblower Mechanic Name Role Phone Unavailable Primary Care Provider Unavailabl e Encounter Details Date Type Department Care Team (Latest Contact Info) Description 08/21/2020 11:05 AM CDT - 08/21/2020 11:59 PM CDT Hospital Encounter [facility] [place] [address] Omar Johns MD 3 [facility] [address] [place] [address] Discharge Disposition: Home or Self Care (Routine [...] COVID-19? No / Unsure 07/23/2020 2:43 PM GUNNERY/ORDNANCE OFFICER documented as of this encounter Medications at Time of Discharge adalimumab (HUMIRA PEN) 40 MG/0.4ML pen-injector kitIndications:Ulcer ative pancolitis without complication ([facility] HHS/[facility]) Citrate free formula. Inject 40 mg (0.4 ml) pen Subcutaneously every other week. 2 each 4 0 09/24/19 21 azaTHIOprine 50 MG tabletIndications:Ul cerative pancolitis without complication ([facility] HHS/[facility]) Take 1 tablet (50 mg total) by [...] DR sprinkle 125 MG capsuleIndications:S eizure disorder ([facility] HHS/HCC) Take 3 capsules in the morning [...] [facility] Family Medicine - [place] [address] [place] [address] Charla Campos PA-C 100 [place] [address] documented as of this encounter Procedures Procedure Name Priority Date/Time Associated Diagnosis Comments CORONAVIRUS (COVID 19) STAT 08/21/2020 11:17 AM CDT Pancolitis (CMS/HCC HHS/[facility]) documented in this encounter Results * PRE-SURGICAL/PRE-PROCEDURE CORONAVIRUS (COVID 19) (08/21/2020 11:17 AM CDT) CORONAVIRUS SARS COV 2 PCR (RESP) NOT DETECTED NOT DETECTED 08/22/2020 10:36 AM CDT [place] [facility] Comment: A Not Detected (negative) [...] providers and patients using the following websites: https://www.[employer]/home/Covid-19/HCP/[facility]/fact- sheet.html https://www.[employer]/home/Covid-19/Patients/ Quest[employer]/fact-sheet.html This test has been authorized by the FDA under an Emergency Use Authorization (EUA) for use by authorized laboratories. Due to the current public health emergency, [facility] is receiving a high volume of samples [...] about COVID-19 can be found at the [employer] website: www.[employer]Vibe/Covid19. Test performed at [place] [id number] [place] [address] ??[phone] Director: DENA ALMAGUER DO,MPH FIRST TEST YES 08/21/2020 11:24 AM CDT [facility] EMPLOYED IN HEALTHCARE NO 08/21/2020 11:24 AM CDT [facility] SYMPTOMATIC DEFINED BY CDC NO 08/21/2020 11:24 AM CDT [facility] DATE OF SYMPTOM ONSET NO 08/21/2020 2:22 PM CDT [facility] HOSPITALIZATION STATUS NO 08/21/2020 11:24 AM CDT [facility] PATIENT IN ICU NO 08/21/2020 11:24 AM CDT [facility] RESIDENT OF [facility] NO 08/21/2020 11:24 AM CDT [facility] NOT 08/21/2020 11:24 AM CDT [facility] PATIENT'S RACE WHITE OR 08/21/2020 11:24 AM CDT [facility] ETHNICITY NONHISPANIC 08/21/2020 11:24 AM CDT [facility] SOURCE (QST) NASOPHARYNGEAL SWAB 08/21/2020 11:24 AM CDT [facility] NASOPHARYNGEAL SWAB / Unknown 08/21/2020 11:17 AM CDT us mOar Johns MD MICROBIOLOGY - GENERAL ORDERABLE S Final Result [facility] [address] [place] [address], [place] [address], documented in this encounter Visit Diagnoses Diagnosis Pancolitis ([facility]/HCC [facility]) [place] ulcerative (chronic) colitis documented in this encounter Additional Health Concerns Infection Onset Date Last Indicated Resolved Time COVID-19 Rule Out 08/21/2020 08/21/2020 08/22/2020 10:36 AM CDT documented as of this encounter
--- OUTSIDE RECORDS SUMMARY | 2024-06-08 08:22 | XMS_ITS | Encounter Summary ---
Author Organization [facility] Address [address] [place] [address]. [place] [address] [place] [address] Care Team Providers Care Container Finishing Inspector Name Role Phone Unavailable Primary Care Provider Unavailabl e Reason for Visit * Reason Onset Date Comments Prior Authorization 11/15/2019 Encounter Details Date Type Department Care Team (Late st Contact Info) Description 11/15/2019 Telephone [facility] Multispecialty Care - [facility] [address] [facility], [address] [place] [address] Seble Bliss NP 3 [facility]. [address] [place] [address] Prior Authorization Social History Tobacco Use Types [...] 11:19 AM CDT Spoke with Avis from [facility] and was informed that they now need a prior auth for the quantity of the medication. Please call [phone] and reference case # [id number]. * Maria Hewitt MA - 11/15/2019 9:46 AM CDT Spoke with Marii from [facility] pharmacy. I told her we had received a prior auth request from [facility]. She said that [facility] and [facility] are associated and that the Humira auth is good till 11/11/2020. Patient's Humira order is scheduled for . SHIPPING AND RECEIVING SUPERVISOR Seble Bliss informed of above. documented in this encounter Plan of Treatment Upcoming Encounters Date Type Department Care Team (Late st Contact Info) Description 08/21/2024 4:00 PM CDT Office Visit [facility] Medical [facility] Family Medicine - [place] [address] [place] [phone] Charla Campos PA-C [address] [place] [address] documented as of this encounter Visit Diagnoses Not on filedocumented in this encounter
--- OUTSIDE RECORDS SUMMARY | 2024-06-08 08:22 | XMS_ITS | Encounter Summary ---
Author Organization [facility] Address [address] [place] [address]. [place] [address] [place] [address] Care Team Providers Care School Psychology Professor Name Role Phone Unavailable Primary Care [...] COVID-19? No / Unsure 07/23/2020 2:43 PM ROLLING MILL PLUGGER documented as of this encounter Plan of Treatment Upcoming Encounters Date Type Department Care Team (Late st Contact Info) Description 08/21/2024 4:00 PM CDT Office Visit [facility] Family Medicine - [place] [address] [place] [phone] Charla Campos PA-C 100 [place] [address] documented as of this encounter Visit Diagnoses Not on filedocumented in this encounter
--- OUTSIDE RECORDS SUMMARY | 2024-06-08 08:22 | XMS_ITS | Encounter Summary ---
Author Organization [facility] Address [facility] [place] [address] [place] [address] Care Team Providers Care Human Services Supervisor Name Role Phone Unavailable Primary Care [...] PM CDT Office Visit [facility] Family Medicine - [place] 100 [place] [phone] Charla Campos PA-C 100 [place] [address] documented as of this encounter Visit Diagnoses Not on filedocumented in this encounter
--- OUTSIDE RECORDS SUMMARY | 2024-06-08 08:22 | XMS_ITS | Encounter Summary ---
Author Organization [facility] Address [address] [place] [address]. [place], [place] [address] [place] [address] Care Team Providers Care Acid Conditioner Name Role Phone Unavailable Primary Care Provider Unavailabl e Reason for Visit * Reason Onset Date Comments Medication 08/06/2019 Encounter Details Date Type Department Care Team (Late st Contact Info) Description 08/06/2019 Telephone [facility] Multispecialty Care - [facility] 3 [facility], [address] [place] [address] Omar Johns MD 3 [facility] [address] [place] [address] Medication Social History Tobacco Use Types Packs/Day [...] show her. Please follow up with patient [phone] * Seble Ratliff NP - 08/06/2019 1:16 [...] 08/21/2024 4:00 PM CDT Office Visit [facility] Medical [facility] Family Medicine - [place] [phone] Charla Campos PASariah [address] [place] [address] documented as of this encounter Visit Diagnoses Diagnosis Ulcerative pancolitis without complication (CMS/HCC HHS/HCC) documented in this encounter
--- OUTSIDE RECORDS SUMMARY | 2024-06-08 08:22 | XMS_ITS | Encounter Summary ---
Author Organization [facility] Address [address] [place] [address]. [place], [place] [address] [place] [address] Care Team Providers Care Hood Maker Name Role Phone Unavailable Primary Care [...] [facility] Family Medicine - [place] 100 [place] [phone] Charla Campos PA-C 100 [place] [address] documented as of this encounter Visit Diagnoses Not on filedocumented in this encounter Additional Health Concerns Infection Onset Date Last Indicated Resolved Time COVID-19 Rule Out 08/21/2020 08/21/2020 08/22/2020 10:36 AM CDT documented as of this encounter
--- OUTSIDE RECORDS SUMMARY | 2024-06-08 08:22 | XMS_ITS | Encounter Summary ---
Author Organization [facility] Address [address] [place] [address]. [place] [address] [place] [address] Care Team Providers Care Program Therapist Name Role Phone Unavailable Primary Care Provider Unavailabl e Reason for Referral * Surgical (Routine) - Closed Specialty Diagnoses / Procedures Referred By Yodit kenney Referred To Contact Diagnoses Ulcerative colitis ([facility] HHS/HCC) Ulcerative pancolitis without complication ([facility]) Procedures Case request operating room: COLONOSCOPY Omar Johns MD [address] [place] [address] Phone: tel: fax: Referral ID Status Reason Start Date Expiration Date Visits Re quested Visits Authorized [id number] Closed 07/24/2020 08/21/2021 1 1 D CAPITAL CLERK Encounter Details Date Type Department Care Team (Late st Contact Info) Description 07/24/2020 Orders Only [facility] Medical Group Multispecialty Care - [address] [place] [phone] Omar Johns MD [address] [place] [address] [place] [id number] Social History Tobacco Use Types Packs/Day Years [...] COVID-19? No / Unsure 07/23/2020 2:43 PM FIXED CAPITAL CLERK documented as of this encounter Plan of Treatment Upcoming Encounters Date Type Department Care Team (Late st Contact Info) Description 08/21/2024 4:00 PM CDT Office Visit [facility] Medical Group Family Medicine - [address] [phone] Charla Campos PA-C [address] [place] [address] Scheduled Orders Name Type Priority Associated Diagnoses Orde r Schedule Case request operating room: COLONOSCOPY Case Request Routine Ulcerative colitis ([facility]) Ulcerative pancolitis without complication ([facility]/HCC) Ordered: 07/24/2020 documented as of this encounter Visit Diagnoses Diagnosis Ulcerative colitis ([facility] HHS/HCC)- Primary Ulcerative colitis, unspecified Ulcerative pancolitis without complication ([facility] HHS/HCC) documented in this encounter
--- OUTSIDE RECORDS SUMMARY | 2024-06-08 08:22 | XMS_ITS | Encounter Summary ---
Author Organization [facility] Address [address] [place] [address]. [place] [address] [place] [address] Care Team Providers Care Post Office Markup Clerk Name Role Phone Unavailable Primary Care Provider Unavailabl e Encounter Details Date Type Department Care Team (Late Contact Info) Description 03/06/2020 Orders Only [facility] Multispecialty Care - [facility] 3 [facility], [address] [place] [phone] Seble Bliss, JORI 3 [facility]. [address] [place] [address] Social History Tobacco Use Types Packs/Day Years [...] Description 08/21/2024 4:00 PM CDT Office Visit [facility] Family Medicine - [place] 100 [facility] [place] [phone] Charla Campos PA-C [address] [place] [address] documented as of this encounter Visit Diagnoses Diagnosis Ulcerative pancolitis without complication (CMS/HCC HHS/HCC) documented in this encounter
--- OUTSIDE RECORDS SUMMARY | 2024-06-08 08:22 | XMS_ITS | Encounter Summary ---
Author Organization [facility] Address [facility] [place] [address] [place] [address] Care Team Providers Care Voip Technician Name Role Phone Unavailable Primary Care [...] [facility] Family [facility] - [place] 100 [place] [phone] Charla Campos PA-C 100 [place] [address] documented as of this encounter Visit Diagnoses Not on filedocumented in this encounter
--- OUTSIDE RECORDS SUMMARY | 2024-06-08 08:22 | XMS_ITS | Encounter Summary ---
Author Organization [facility] Address [address] [place] [address]. [place] [address] [place] [address] Care Team Providers Care Commercial Real Estate Attorney Name Role Phone Unavailable Primary Care Provider Unavailabl e Reason for Visit * Reason Onset Date Comments Refill Request 07/07/2020 Encounter Details Date Type Department Care Team (Late st Contact Info) Description 07/07/2020 Telephone [facility] Multispecialty Care - [facility] 3 [facility], [address] [place] [address] Seble Bliss NP 3 [facility]. [address] [place] [address] Refill Request Social History Tobacco Use Types [...] the prior auth form to be completed. ER CLERK * Kaitlynn Healy - 07/07/2020 9:52 AM CST Patient said that her Humira needs to be pr- authorized once a year.. [facility] has faxed over this information twice. Once on 06-25-20 and again on 07-01-20. They have not heard anything. Please followup with patient. ER CLERK documented in this encounter Plan of Treatment Upcoming Encounters Date Type Department Care Team (Late st Contact Info) Description 08/21/2024 4:00 PM CDT Office Visit [facility] Medical Group Family Medicine - [place] [phone] Charla Campos PA-C [address] [place] [address] documented as of this encounter Visit Diagnoses Not on filedocumented in this encounter
--- OUTSIDE RECORDS SUMMARY | 2024-06-08 08:22 | XMS_ITS | Encounter Summary ---
Author Organization [facility] Address [address] [place] [address]. [place] [address] [place] [address] Care Team Providers Care Mechanical Engineering Director Name Role Phone Unavailable Primary Care Provider Unavailabl e Reason for Visit * Reason Onset Date Comments Medication Problem 03/30/2020 Encounter Details Date Type Department Care Team (Late st Contact Info) Description 03/30/2020 Telephone [facility] Multispecialty Care - [facility] 3 [facility], [address] [place] [address] Seble Bliss NP 3 [facility]. [address] [place] [address] Medication Problem Social History Tobacco Use Types [...] as soon as we get an answer. [facility] * Xochitl Escobedo - 03/30/2020 4:17 PM CST [place] prior auth was resent to [facility] through [facility] [facility]. [facility] * Xochitl Escobedo - 03/30/2020 2:56 PM CST LVM for patient to give the office a call. [facility] * Lesly Romero - 03/30/2020 8:22 AM CST Pt called in and stated that she is still having issues getting her adalimumab humira pen. Pt stated that [facility] still has not received a prior auth for the script. Please call her pharmacy and call her back to let her know it was done [facility] documented in this encounter Plan of Treatment Upcoming Encounters Date Type Department Care Team (Late st Contact Info) Description 08/21/2024 4:00 PM CDT Office Visit [facility] Medical Group Family Medicine - [place] [address] [place] [phone] Charla Campos PA-C [address] [place] [address] documented as of this encounter Visit Diagnoses Not on filedocumented in this encounter
--- OUTSIDE RECORDS SUMMARY | 2024-06-08 08:22 | XMS_ITS | Encounter Summary ---
Author Organization [facility] Address [facility] [place] [address] [place] [address] Care Team Providers Care Large Engine Assembler Name Role Phone Unavailable Primary Care [...] [facility] Family Medicine - [place] 100 [place] [phone] Charla Campos PA-C 100 [place] [address] documented as of this encounter Visit Diagnoses Not on filedocumented in this encounter
--- OUTSIDE RECORDS SUMMARY | 2024-06-08 08:22 | XMS_ITS | Encounter Summary ---
Author Organization [facility] Address [address] [place] [address]. [place] [address] [place] [address] Care Team Providers Care Sports Team Marketing Intern Name Role Phone Unavailable Primary Care Provider Unavailabl e Reason for Visit * Reason Comments Ulcerative Colitis ulcerative pancoliti s, pt feels like meds aren't helping * Consultation/Treatment (Routine) - Closed Specialty Diagnoses / Procedures Referred By Contact Referred To Contact NURSE PRACTITIONER / GASTROENTEROLOGY Diagnoses discuss colitis Procedures FOLLOW UP Karson Payne MD [address] [facility] [address] [place] [address] Phone: tel: fax: Seble Bliss NP [address] [facility]. [address] [place] [address] Phone: tel:[phone] fax:[phone] Referral ID Status Reason Start Date Expiration Date Visits Re quested Visits Authorized [id number] Closed 07/23/2020 08/20/2021 100 100 Encounter Details Date Type Department Care Team (Latest Contact Info) Description 07/23/2020 3:00 PM SHELL MACHINE OPERATOR Office Visit [facility] Multispecialty Care - [facility] [address] [facility] [place] [address] [place] [phone] Seble Bliss NP [address] [facility]. [address] [place] [address] Ulcerative Colitis (ulcerative pancolitis, pt feels like [...] COVID-19? No / Unsure 07/23/2020 2:43 PM SHELL MACHINE OPERATOR documented as of this encounter Last Filed Vital Signs Vital Sign Reading Time Taken Comments Blood Pressure 126/84 07/23/2020 3:56 PM SHELL MACHINE OPERATOR Pulse 104 07/23/2020 2:58 PM SHELL MACHINE OPERATOR Temperature 36.3 ??C (97.4 ??F) 07/23/2020 2:58 PM CS T Respiratory Rate 20 07/23/2020 2:58 PM SHELL MACHINE OPERATOR Oxygen Saturation 96% 07/23/2020 2:58 PM SHELL MACHINE OPERATOR Inhaled Oxygen Concentration - - Weight 135.2 kg (298 lb) 07/23/2020 2:58 PM SHELL MACHINE OPERATOR Height 180.3 cm (5' 11 ) 07/23/2020 2:58 PM SHELL MACHINE OPERATOR Body Mass Index 41.56 07/23/2020 2:58 PM SHELL MACHINE OPERATOR documented in this encounter Progress [...] loss. Patient notes she does work [employer] so no longer in public much. ?? [...] trying to go to sz clinic to [facility]). Negative for??dizziness??and headaches. Endo/Heme/Allergies:??Does not bruise/bleed easily. Psychiatric/Behavioral: Positive for??depression??(Slight due to loss of grandmother 2 months ago).The patient??is not nervous/anxious.?Family in [place].? Medications: Current Outpatient Medications: ??? adalimumab (HUMIRA [...] BIOPSIES performed by Omar Johns MD at [facility] OR ulcerative pancolitis ??? TONSILLECTOMY Social History: [...] were discussed with the patient and/or family/personal customer assistance representative. Risks can include but are not limited to: discomfort, missing lesions, allergic or adverse reaction to the sedative, perforation of the bowel which may require hospitalization and surgery, bleeding, infection, aspiration, and evendeath. Questions were answered and the patient/family/personal customer assistance representative verbalized understanding anddesires to proceed. Seble Bliss NP 07/24/2020 Cosigned by Omar Johns MD at 07/27/2020 5:29 PM SHELL MACHINE OPERATOR L MACHINE OPERATOR L MACHINE OPERATOR documented in this encounter Plan of Treatment Upcoming Encounters Date Type Department Care Team (Late st Contact Info) Description 08/21/2024 4:00 PM CDT Office Visit [facility] Family Medicine - [address] [address] [phone] Charla Campos PA-C [address] [place] [address] documented as of this encounter Results * (ABNORMAL) C-REACTIVE PROTEIN (07/23/2020 4:19 PM SHELL MACHINE OPERATOR) C-REACTIVE PROTEIN 0.80(H) <0.29 mg/dL 07/23/2020 4:57 PM SHELL MACHINE OPERATOR [facility] 07/23/2020 4:19 PM SHELL MACHINE OPERATOR us Seble Bliss NP LABORATORY Final Result [facility] [address] [place] [address], * (ABNORMAL) COMPREHENSIVE METABOLIC PANEL (07/23/2020 4:19 PM SHELL MACHINE OPERATOR) [facility] GLUCOSE 78 70 - 99 MG/DL 07/23/2020 4:57 PM SHELL MACHINE OPERATOR [facility] BUN 9 7 - 18 MG/DL 07/23/2020 4:57 PM [facility] CREATININE S/P/B 0.78 0.55 - 1.02 MG/DL 07/23/2020 4:57 PM [facility] SODIUM S/P/B 137 136 - 145 MMOL/L 07/23/2020 4:57 PM [facility] POTASSIUM S/P/B 3.8 3.5 - 5.1 MMOL/L 07/23/2020 4:57 PM [facility] CHLORIDE S/P/B 106 100 - 108 MMOL/L 07/23/2020 4:57 PM [facility] CO2 24.5 21 - 32 MMOL/L 07/23/2020 4:57 PM [facility] CALCIUM S/P/B 9.4 8.5 - 10.1 MG/DL 07/23/2020 4:57 PM [facility] BILIRUBIN TOTAL S/P/B 0.4 0.2 - 1.2 MG/DL 07/23/2020 4:57 PM [facility] Comment: THIS ASSAY IS NOT RECOMMENDED FOR PATIENTS UNDERGOING TREATMENT WITH ELTROMBOPAG DUE TO THE POTENTIAL FOR FALSELY ELEVATED RESULTS. TOTAL PROTEIN S/P/B 7.9 6.4 - 8.2 G/DL 07/23/2020 4:57 PM [facility] ALBUMIN S/P/B 3.7 3.4 - 5.0 G/DL 07/23/2020 4:57 PM SHELL MACHINE OPERATOR [facility] AST 11(L) 15 - 37 U/L 07/23/2020 4:57 PM SHELL MACHINE OPERATOR [facility] ALT 14 14 - 55 U/L 07/23/2020 4:57 PM [facility] ALKALINE PHOSPHATASE S/P/B 70 50 - 136 U/L 07/23/2020 4:57 PM SHELL MACHINE OPERATOR [facility] ANION GAP 6.5 5 - 15 MMOL/L 07/23/2020 4:57 PM [facility] BUN CREATININE RATIO 11.5 6 - 26 07/23/2020 4:57 PM [facility] A/G RATIO 0.9(L) 1.0 - 2.0 RATIO 07/23/2020 4:57 PM [facility] EGFR NON-AFR. AMER. >90 >90 ML/MIN/1.7 3 M2 07/23/2020 4:57 PM [facility] EGFR AFR. AMER. >90 >90 ML/MIN/1.7 3 M2 07/23/2020 4:57 PM [facility] Comment: NOTE: eGFR is not calculated for patients <18 years of age. This is an estimated GFR (CKD EPI) and should not be used for calculating drug doses. 07/23/2020 4:19 PM SHELL MACHINE OPERATOR us Seble Bliss NP LABORATORY Final Result [facility] [address] [place] [address], [place] [phone] * (ABNORMAL) CBC W/DIFF AUTOMATED (07/23/2020 4:19 PM SHELL MACHINE OPERATOR) WBC 13.2(H) 4.5 - 11.0 x10'3/uL 07/23/2020 4:35 PM [facility] RBC 4.79 4.20 - 5.40 x10'6/uL 07/23/2020 4:35 PM [facility] HGB 13.9 12.0 - 16.0 G/DL 07/23/2020 4:35 PM [facility] HCT 42.1 38.0 - 48.0 % 07/23/2020 4:35 PM [facility] MCV 87.9 81.0 - 99.0 FL 07/23/2020 4:35 PM [facility] MCH 29.0 27.0 - 31.0 PG 07/23/2020 4:35 PM [facility] MCHC 33.0 32.0 - 36.0 G/DL 07/23/2020 4:35 PM [facility] RDW 12.9 11.5 - 14.5 % 07/23/2020 4:35 PM [facility] PLT 331 130 - 400 x10'3/uL 07/23/2020 4:35 PM [facility] MPV 9.8 9.3 - 12.2 FL 07/23/2020 4:35 PM [facility] DIFFERENTIAL TYPE AUTOMATED DIFFERENTIAL 07/23/2020 4:35 PM [facility] NEUTROPHILS % 54.1 % 07/23/2020 4:35 PM [facility] LYMPHOCYTES % 32.0 % 07/23/2020 4:35 PM [facility] MONOCYTES % 10.0 % 07/23/2020 4:35 PM [facility] EOSINOPHILS 2.9 % 07/23/2020 4:35 PM SHELL MACHINE OPERATOR [facility] BASOPHILS 0.7 % 07/23/2020 4:35 PM SHELL MACHINE OPERATOR [facility] IMMATURE GRANS % 0.3 % 07/23/19 4:35 PM [facility] ABS. NEUTROPHILS TOTAL 7.17 1.80 - 7.70 x10'3/uL 07/23/2020 4:35 PM SHELL MACHINE OPERATOR [facility] ABS. LYMPHOCYTES 4.24 1.00 - 4.80 x10'3/uL 07/23/2020 4:35 PM SHELL MACHINE OPERATOR [facility] ABS. MONOCYTES 1.32(H) 0.24 - 0.86 x10'3/uL 07/23/2020 4:35 PM SHELL MACHINE OPERATOR [facility] ABS. EOSINOPHILS 0.38(H) 0.04 - 0.36 x10'3/uL 07/23/2020 4:35 PM SHELL MACHINE OPERATOR [facility] ABS. BASOPHILS 0.09(H) 0.01 - 0.08 x10'3/uL 07/23/2020 4:35 PM [facility] ABS. IMMATURE GRANULOCYTES 0.04 0.00 - 0.49 x10'3/uL 07/23/2020 4:35 PM [facility] 07/23/2020 4:19 PM SHELL MACHINE OPERATOR Seble Bliss NP LABORATORY Final Result [facility] [address] [place] [address], [place] [phone] documented in this encounter Visit Diagnoses Diagnosis Ulcerative pancolitis with rectal bleeding (CMS/HCC HHS/HCC)- Primary documented in this encounter
--- OUTSIDE RECORDS SUMMARY | 2024-06-08 08:22 | XMS_ITS | Encounter Summary ---
Author Organization [facility] Address [facility] [facility] [place] [address] [place] [address] Care Team Providers Care Backpackers Manager Name Role Phone Unavailable Primary Care [...] [facility] - [place] [address] [place] [address] Charla Campos PA-C [address] [place] [address] documented as of this encounter Visit Diagnoses Not on filedocumented in this encounter
--- OUTSIDE RECORDS SUMMARY | 2024-06-08 08:22 | XMS_ITS | Encounter Summary ---
Author Organization [facility] Address [address] [place] [address]. [place] [address] [place] [address] Care Team Providers Care Supervisor Wire Rope Fabrication Name Role Phone Unavailable Primary Care Provider Unavailabl e Reason for Visit * Reason Onset Date Comments Information 09/09/2019 Encounter Details Date Type Department Care Team (Late st Contact Info) Description 09/09/2019 Telephone [facility] Multispecialty Care - [facility] [address] [facility], [address] [place] [address] Seble Bliss NP [address] [facility]. [address] [place], [place] [phone] Information Social History Tobacco Use Types Packs/Day [...] [facility] Family Medicine - [place] [address] [place] [phone] Charla Campos PA-C [address] [place] [address] documented as of this encounter Visit Diagnoses Not on filedocumented in this encounter
--- OUTSIDE RECORDS SUMMARY | 2024-06-08 08:22 | XMS_ITS | Encounter Summary ---
Author Organization [facility] Address [address] [place] [address]. [place] [address] [place] [address] Care Team Providers Care Surgical Services Manager Name Role Phone Unavailable Primary Care Provider Unavailabl e Reason for Visit * Reason Onset Date Comments Medication Problem 11/14/2019 Encounter Details Date Type Department Care Team (Late st Contact Info) Description 11/14/2019 Telephone [facility] Multispecialty Care - [facility] 3 [facility], [address] [place] [address] Seble Bliss NP [address] [facility]. [address] [place] [address] Medication Problem Social History Tobacco Use Types [...] Called pt to let her know that COUNSELING DIRECTOR Seble has filled out the documents faxed to us by [facility]. Pt verbalized understanding * Maria Hewitt MA - 11/14/2019 9:29 AM CDT Received prior auth form. Will have COUNSELING DIRECTOR Seble fill it out * Tamara Potts - 11/14/2019 9:25 AM CDT Pt said Seble put in a refill on her humira pen to [facility]. She said they contacted her saying they need more info from us and isn't sure what it is about. She said they would be faxing us but it looks like we haven't gotten anything yet. [facility] and follow up with pt on status of things. documented in this encounter Plan of Treatment Upcoming Encounters Date Type Department Care Team (Late st Contact Info) Description 08/21/2024 4:00 PM CDT Office Visit [facility] Family Medicine - [place] [address] [place] [phone] Charla Campos PA-C [address] [facility] [place] [address] documented as of this encounter Visit Diagnoses Not on filedocumented in this encounter
--- OUTSIDE RECORDS SUMMARY | 2024-06-08 08:22 | XMS_ITS | Encounter Summary ---
Author Organization [facility] Address [address] [place] [address]. [place] [address] [place] [address] Care Team Providers Care Regional Environmental Manager Name Role Phone Charla Campos PA-C Primary Care Provider [phone] Encounter Details Date Type Department Care Team (Late st Contact Info) Description 08/21/[address] [facility] [place], [place] [phone] Omar Johns MD 3 [facility] [address] [place] [address] Social History Tobacco Use Types Packs/Day Years [...] [facility] Family Medicine - [address] [phone] Charla Campos PA-C [address] [place] [address] documented as of this encounter Results * PRE-SURGICAL/PRE-PROCEDURE CORONAVIRUS (COVID 19) (08/21/2020 11:17 AM CDT) CORONAVIRUS SARS COV 2 PCR (RESP) NOT DETECTED NOT DETECTED 08/22/2020 10:36 AM CDT [facility] Comment: A Not Detected (negative) test result [...] providers and patients using the following websites: https://www.[employer].com/home/Covid-19/HCP/Quest[employer]/fact- sheet.html https://www.[employer].PillGuard/home/Covid-19/Patients/ Quest[employer]D/fact-sheet.html This test has been authorized by the FDA under an Emergency Use Authorization (EUA) for use by authorized laboratories. Due to the current public health emergency, [facility] is receiving a high volume of samples [...] about COVID-19 can be found at the [facility] [employer] website: www.[employer].PillGuard/Covid19. Test performed at [facility] [address] ??[phone] Director: DENA ALMAGUER DO,MPH FIRST TEST YES 08/21/2020 11:24 AM CDT [facility] EMPLOYED IN HEALTHCARE NO 08/21/2020 11:24 AM CDT [facility] SYMPTOMATIC DEFINED BY CDC NO 08/21/2020 11:24 AM CDT [facility] DATE OF SYMPTOM ONSET NO 08/21/2020 2:22 PM CDT [facility] HOSPITALIZATION STATUS NO 08/21/2020 11:24 AM CDT [facility] PATIENT IN ICU NO 08/21/2020 11:24 AM CDT [facility] RESIDENT OF [facility] NO 08/21/2020 11:24 AM CDT [facility] NOT 08/21/2020 11:24 AM CDT [facility] PATIENT'S RACE WHITE OR 08/21/2020 11:24 AM CDT [facility] ETHNICITY NONHISPANIC 08/21/2020 11:24 AM CDT [facility] SOURCE (QST) NASOPHARYNGEAL SWAB 08/21/2020 11:24 AM CDT [facility] NASOPHARYNGEAL SWAB / Unknown 08/21/2020 11:17 AM CDT us Omar Johns MD MICROBIOLOGY - GENERAL ORDERABLE S Final Result [facility] [address] [place] [address], [facility] [id number] [place] [address] documented in this encounter Visit Diagnoses Diagnosis Pancolitis ([facility])- Primary [place] ulcerative (chronic) colitis documented in this encounter Additional Health Concerns Infection Onset Date Last Indicated Resolved Time COVID-19 Rule Out 08/21/2020 08/21/2020 08/22/2020 10:36 AM CDT documented as of this encounter Care Teams Regional Environmental Manager Relationship Specialty Start Date End Date Charla Campos PA-C [address] [place] [address] PCP - General PHYSICIAN AUTOMATION ARCHITECT 08/22/23 documented as of this encounter
--- OUTSIDE RECORDS SUMMARY | 2024-06-08 08:22 | XMS_ITS | Encounter Summary ---
Author Organization [facility] Address [address] [place] [address]. [place], [place] [phone] [place] [address] Care Team Providers Care Distribution Analyst Name Role Phone Unavailable Primary Care Provider Unavailabl e Reason for Visit * Reason Onset Date Comments Orders 10/31/2019 Encounter Details Date Type Department Care Team (Late st Contact Info) Description 10/31/2019 Telephone [facility] Multispecialty Care - [facility] [address] [facility], [address] [place] [address] Omar Johns MD 3 [facility] [address] [place] [address] Orders Social History Tobacco Use Types Packs/Day [...] [facility] Family Medicine - [place] [phone] Charla Campos PA-C [address] [place] [address] documented as of this encounter Visit Diagnoses Not on filedocumented in this encounter
--- OUTSIDE RECORDS SUMMARY | 2024-06-08 08:22 | XMS_ITS | Encounter Summary ---
Author Organization [facility] Address [address] [place] [address]. [place] [address] [place] [address] Care Team Providers Care Greige Mender Name Role Phone Unavailable Primary Care Provider Unavailabl e Encounter Details Date Type Department Care Team (Late Contact Info) Description 02/05/2020 Orders Only [facility] Multispecialty Care - [facility] 3 [facility], [address] [place] [phone] Seble Bliss, JORI [address] [facility]. [address] [place] [address] Social History Tobacco Use Types Packs/Day Years [...] Description 08/21/2024 4:00 PM CDT Office Visit [facility] Family Medicine - [place] [address] [facility] [place] [phone] Charla Campos PA-C [address] [place] [address] documented as of this encounter Visit Diagnoses Diagnosis Ulcerative pancolitis without complication (CMS/HCC HHS/HCC) documented in this encounter
--- OUTSIDE RECORDS SUMMARY | 2024-06-08 08:23 | XMS_ITS | Encounter Summary ---
Author Organization [facility] Address [facility]6 [facility] [place] [address] [place] [address] Care Team Providers Care Director Of Casework Name Role Phone Unavailable Primary Care Provider Unavailabl e Reason for Visit * Reason Comments Follow Up pt is doing alot bet ter * Consultation/Treatment (Routine) - Closed Specialty Diagnoses / Procedures Referred By Contact Referred To Contact NURSE PRACTITIONER / GASTROENTEROLOGY Diagnoses hospital follow up Procedures NEW PATIENT Karson Payne MD [address] [facility] [address] [place] [address] Phone: tel: fax: Seble Bliss NP 3 [facility]. [place] [address] [place] [address] Phone: tel:[phone] fax:[phone] Referral ID Status Reason Start Date Expiration Date Visits Re quested Visits Authorized [id number] Closed 12/24/2018 01/25/2020 100 100 Encounter Details Date Type Department Care Team (Latest Contact Info) Description 07/22/2019 3:40 PM RIGGING ENGINEER Office Visit [facility] Medical Group Multispecialty Care - [facility] [address] [facility] [place] [address] Seble Bliss NP 3 [facility]. [address] [place], [place] [phone] Follow Up (pt is doing alot better) [...] Comments Blood Pressure 116/76 07/22/2019 3:48 PM RIGGING ENGINEER Pulse 88 07/22/2019 3:48 PM RIGGING ENGINEER Temperature 36.4 ??C (97.6 ??F) 07/22/2019 3:48 PM CS T Respiratory Rate 18 07/22/2019 3:48 PM RIGGING ENGINEER Oxygen Saturation 97% 07/22/2019 3:48 PM RIGGING ENGINEER Inhaled Oxygen Concentration - - Weight 130.6 kg (288 lb) 07/22/2019 3:48 PM RIGGING ENGINEER Height 180.3 cm (5' 11 ) 07/22/2019 3:48 PM RIGGING ENGINEER Body Mass Index 40.17 07/22/2019 3:48 PM RIGGING ENGINEER documented in this encounter Patient Instructions * Patient Instructions* Seble Bliss NP - 07/22/2019 3:40 PM RIGGING ENGINEER Images from the original note were not included. Patient Education Patient Education Patient Education Ulcerative Colitis in Adults The Basics Written by the doctors and editors at [facility] What is ulcerative colitis???--??Ulcerative colitis is a [...] process is complete. This topic retrieved from [employer] on: Jan 09, 2019. Topic 82983 Version 11.0 Release: 27.3.2 - C27.227 ?2019??[employer]. and/or its affiliates.??All rights reserved. figure 1: Diagram of the colon and rectum This figure shows the different parts of the colon (also known as the large intestine), the rectum,and the anus. Graphic 17162 Version 7.0 figure 2: Colonoscopy During a colonoscopy, you lie on your side and the doctor or nurse puts a thin tube with a camera into your anus (from behind). Then the doctor or nurse advances the tube into the rectum and colon. The camera sends pictures from inside your colon to a television screen. Graphic 23880 Version 5.0 Consumer Information Use and Disclaimer [...] that is right for you.The use of [employer] content is governed by the [employer] Terms of Use. ??2019 [employer]. All rights reserved. Copyright ?2019??[employer]. and/or its affiliates.??All rights reserved. Patient Education [...] ? White rice ? Plain pasta ? French muffins ?? Milk products like: ? Milk [...] avoided? ?? Meats and proteins like: ? [place] nut butters ? Dried peas or beans [...] ? Salads ? Broccoli ? Cauliflower ? [place] ? Potatoes with skin ? Leafy greens [...] more fiber. Where can I learn more? [employer] http://www.cancer.org/treatment/survivorshipduringandaftertreatment/nutritionfor peoplewithcancer/uig-syysg-ijdsd Last Reviewed Date 2018-07-06 Consumer Information Use [...] right for you. Copyright Copyright ?? 2019 [employer], Inc. and its affiliates and/or licensors. All rights reserved. ING ENGINEER documented in this encounter Progress Notes * Seble Bliss NP - 07/22/2019 3:40 PM CST Images from the original note were not included. Gastroenterology Established Visit Reason for Visit: Follow Up (pt is doing alot better) History of Present Illness: HPI Paige Petty Emma??is a 23-year-old??female??being seen in clinic for referral [...] one at a nursing homeand one at [facility] she is concerned about the immunosuppression and her exposure to the public. I informed her that she is can be more prone to infections that she will have to use proper hygiene as well as trying to avoid known areas of infection. Patient is question about getting some [facility] paperwork completed in the event she would [...] trying to go to sz clinic to [facility]). Negative for??dizziness??and headaches. Endo/Heme/Allergies:??Does not bruise/bleed easily. Psychiatric/Behavioral: Positive for??depression??(Slight ). The patient??is not nervous/anxious.?Family in [place].?? Medications: Current Outpatient Medications: ??? azathioprine 50 [...] by Omar Johns MD at [facility] OR ??? TONSILLECTOMY Social History: Social History [...] 5 mg tablet Seble Bliss NP 07/22/2019 ING ENGINEER documented in this encounter Plan of Treatment Upcoming Encounters Date Type Department Care Team (Late st Contact Info) Description 08/21/2024 4:00 PM CDT Office Visit [facility] Medical Group Family Medicine - [place] [phone] Charla Campos PA-C [address] [place] [address] [phone] documented as of this encounter Results * (ABNORMAL) CBC W/DIFF AUTOMATED (07/23/2019 4:45 PM RIGGING ENGINEER) WBC 14.5(H) 4.5 - 11.0 x10'3/uL 07/23/2019 5:22 PM RIGGING ENGINEER [facility] RBC 4.76 4.20 - 5.40 x10'6/uL 07/23/2019 5:22 PM RIGGING ENGINEER [facility] HGB 13.5 12.0 - 16.0 G/DL 07/23/2019 5:[address] [facility] HCT 41.5 38.0 - 48.0 % 07/23/2019 5:[address] [facility] MCV 87.2 81.0 - 99.0 FL 07/23/2019 5:[address] [facility] MCH 28.4 27.0 - 31.0 PG 07/23/2019 5:[address] [facility] MCHC 32.5 32.0 - 36.0 G/DL 07/23/2019 5:[address] [facility] RDW 13.3 11.5 - 14.5 % 07/23/2019 5:[address] [facility] PLT 271 130 - 400 x10'3/uL 07/23/2019 5:[address] [facility] MPV 9.8 9.3 - 12.2 FL 07/23/2019 5:[address] [facility] DIFFERENTIAL TYPE AUTOMATED DIFFERENTIAL 07/23/2019 5:[address] [facility] NEUTROPHILS % 57.0 % 07/23/2019 5:[address] [facility] LYMPHOCYTES % 28.8 % 07/23/2019 5:[address] [facility] MONOCYTES % 9.0 % 07/23/2019 5:[address] [facility] EOSINOPHILS 3.9 % 07/23/2019 5:[address] [facility] BASOPHILS 0.7 % 07/23/2019 5:[address] [facility] IMMATURE GRANS % 0.6 % 07/23/19 20 5:[address] [facility] ABS. NEUTROPHILS TOTAL 8.27(H) 1.80 - 7.70 x10'3/uL 07/23/2019 5:[address] [facility] ABS. LYMPHOCYTES 4.18 1.00 - 4.80 x10'3/uL 07/23/2019 5:22 PM RIGGING ENGINEER [facility] ABS. MONOCYTES 1.30(H) 0.24 - 0.86 x10'3/uL 07/23/2019 5:22 PM RIGGING ENGINEER [facility] ABS. EOSINOPHILS 0.56(H) 0.04 - 0.36 x10'3/uL 07/23/2019 5:22 PM RIGGING ENGINEER [facility] ABS. BASOPHILS 0.10(H) 0.01 - 0.08 x10'3/uL 07/23/2019 5:22 PM RIGGING ENGINEER [facility] ABS. IMMATURE GRANULOCYTES 0.09 0.00 - 0.49 x10'3/uL 07/23/2019 5:22 PM RIGGING ENGINEER [facility] 07/23/2019 4:45 PM RIGGING ENGINEER us Seble Bliss NP LABORATORY Final Result [facility] [address] [place] [address], * (ABNORMAL) HEPATIC FUNCTION PANEL (07/23/2019 4:45 PM RIGGING ENGINEER) TOTAL PROTEIN S/P/B 7.8 6.4 - 8.2 G/DL 07/23/2019 5:49 PM RIGGING ENGINEER [facility] ALBUMIN S/P/B 3.6 3.4 - 5.0 G/DL 07/23/2019 5:49 PM RIGGING ENGINEER [facility] BILIRUBIN TOTAL S/P/B 0.3 0.2 - 1.2 MG/DL 07/23/2019 5:49 PM RIGGING ENGINEER [facility] BILIRUBIN DIRECT S/P/B <0.1 0.0 - 0.20 MG/DL 07/23/2019 5:49 PM RIGGING ENGINEER [facility] BILIRUBIN INDIRECT S/P/B NOT CALCULATED 0.0 - 0.9 MG/DL 07/23/2019 5:49 PM RIGGING ENGINEER [facility] ALKALINE PHOSPHATASE S/P/B 74 50 - 136 U/L 07/23/2019 5:49 PM RIGGING ENGINEER [facility] AST 13(L) 15 - 37 U/L 07/23/2019 5:49 PM RIGGING ENGINEER [facility] ALT 14 14 - 55 U/L 07/23/2019 5:49 PM RIGGING ENGINEER [facility] A/G RATIO 0.9(L) 1.0 - 2.0 RATIO 07/23/2019 5:[address] [facility] 07/23/2019 4:45 PM RIGGING ENGINEER Seble Bliss NP LABORATORY Final Result [facility] [address] [place] [address], [place] [phone] documented in this encounter Visit Diagnoses Diagnosis Ulcerative pancolitis without complication (CMS/HCC HHS/HCC)- Primary documented in this encounter
--- OUTSIDE RECORDS SUMMARY | 2024-06-08 08:23 | XMS_ITS | Encounter Summary ---
Author Organization [facility] Address [facility]6 [facility] [place] [address] [place] [address] Care Team Providers Care Acute Care Certified Nursing Assistant Name Role Phone Unavailable Primary Care Provider Unavailabl e Reason for Visit * Auth/Cert Specialty Diagnoses / Procedures Referred By Yodit kenney Referred To Contact Diagnoses R19.7, K92.1 Procedures COLONOSCOPY DIAGNOSTIC WITH/WITHOUT SPECIMEN BRUSH/WASH Referral ID Status Reason Start Date Expiration Date Visits Re quested Visits Authorized [id number] 1 1 Encounter Details Date Type Department Care Team (Latest Contact Info) Description 06/28/2019 8:54 AM GANG INVESTIGATOR - 06/28/2019 12:51 PM [facility] Hospital Encounter [facility] [address] [place] [address] Stoney Johns MD [address] [address] Discharge Disposition: Home or Self Care (Routine [...] Comments Blood Pressure 124/88 06/28/2019 11:45 AM GANG INVESTIGATOR Pulse 92 06/28/2019 11:45 AM GANG INVESTIGATOR Temperature 35.9 ??C (96.6 ??F) 06/28/2019 11:[address] Respiratory Rate 18 06/28/2019 11:45 AM GANG INVESTIGATOR Oxygen Saturation 100% 06/28/2019 11:45 AM GANG INVESTIGATOR Inhaled Oxygen Concentration - - Weight 131.5 kg (290 lb) 06/21/2019 9:56 AM GANG INVESTIGATOR Height 180.3 cm (5' 11 ) 06/21/2019 9:56 AM GANG INVESTIGATOR Body Mass Index 40.45 06/21/2019 9:56 AM GANG INVESTIGATOR documented in this encounter Discharge Instructions * Discharge Instructions* Stoney Johns MD - 06/28/2019 11:44 AM GANG INVESTIGATOR Images from the original note were not [...] more common in Caucasians and people of Latter Day descent What are the main signs? ?? [...] IBD. Where can I learn more? FamilyDoctor.org http://familydoctor.org/familydoctor/en/diseases-conditions/qxvekkegfhvy-uupfi-d isease/symptoms.html National Digestive Diseases Information Clearinghouse http://digestive.niddk.nih.gov/ddiseases/pubs/crohns_ez/index.aspx National Digestive Diseases Information Clearinghouse http://digestive.niddk.nih.gov/ddiseases/pubs/colitis/index.aspx U.S. Department of Health and Human Services Office on Women's Health https://www.womenshealth.gov/publications/our-publications/fact-sheet/inflammato ow-uiisl-hcqugvc.html Last Reviewed Date 2016-11-25 Consumer Information Use [...] right for you. Copyright Copyright ?? 2019 [facility] Clinical Drug Information, Inc. and its affiliates [...] belly pain. Where can I learn more? Citizen Of [place] Gastroenterological Association http://www.gastro.org/info_for_patients/hthtqewvxyp-004-zykq-ed-p-rmufbldrfcc Citizen Of [place] Society for Gastrointestinal Endoscopy http://www.asge.org/patients/patients.aspx?ij=031 National Digestive Diseases Information Clearinghouse http://digestive.niddk.nih.gov/ddiseases/pubs/colonoscopy/ Last [...] for you. Copyright Copyright ?? 2018 [employer] Clinical Drug Information, Inc. and its affiliates and/or licensors. All rights reserved. ?? INVESTIGATOR documented in this encounter Medications at Time [...] with ulcerative colitis. See me in office INVESTIGATOR documented in this encounter H&P Notes * [...] during recuperation were discussed with the patient/family/personal textile designs sales representative. Reasonable alternatives to the patient's proposed procedure/surgery including benefits, risks, and side effects related to the alternatives and the risks related to not receiving the proposed care were also discussed with the patient/family/personal textile designs sales representative. Questions were answered and the patient/family/personal textile designs sales representative verbalized understanding and desires to proceed. INVESTIGATOR Source Note - Seble Bliss NP - 06/19/2019 8:00 AM GANG INVESTIGATOR Images from the original note were not included. Gastroenterology Established Visit Reason for Visit: Hematochezia (blood in stool; pt also is having adominal pain which is causing her to lose sleep) History of Present Illness: HPI Paige Zavaleta is a 23-year-old female being seen in clinic for referral by Karson Payne MD [facility] room follow-up for complaints of nausea [...] and texture. Patient has used Pepto-Bismol and zkbd-hbu-occfpnx antidiarrheal medication with not much effect on [...] abdomen. Patient was previously seen in the [facility] emergency room on 12/15/2018 due to 2 [...] The patient is not nervous/anxious. Family in [place]. ?? Medications: Current Outpatient Medications: ??? desogestrel-ethinyl [...] months. Patient has attempted to use Pepto-Bismol, mykm-xsj-nxjsfvr antidiarrheal pills with minimal effects and one [...] were discussed with the patient and/or family/personal textile designs sales representative. Risks can include but are not limited to: discomfort, missing lesions, allergic or adverse reaction to the sedative, perforation of the bowel which may require hospitalization and surgery, bleeding, infection, aspiration, and evendeath. Questions were answered and the patient/family/personal textile designs sales representative verbalized understanding anddesires to proceed. Seble Bliss NP 06/19/2019 INVESTIGATOR documented in this encounter OR Notes * Op Note - Stoney Johns MD - 06/28/2019 11:31 AM CST [facility] OpNote COLONOSCOPY WITH BIOPSIES Procedure Note Paige Bernardo Waqar 06/28/2019 1023 Procedure(s) (LRB): COLONOSCOPY WITH BIOPSIES (N/A) Surgeon(s): Stoney Johns MD Staff: Circulating Nurse 1: Bridget Mahan RN Scrub Person 1: Sujata Whitman RN Anesthesia: Monitor Anesthesia Care MOTOR COACH DRIVER: Dianna Major CRNA Pre-Op Diagnosis: R19.7, K92.1 [...] Time: 11:32 AM Voice recognition software utilized. INVESTIGATOR documented in this encounter Plan of Treatment Upcoming Encounters Date Type Department Care Team (Late st Contact Info) Description 08/21/2024 4:00 PM CDT Office Visit [facility] Medical Group Family Medicine - [place] [address] [place] [phone] Charla Campos PA-C [address] [place] [address]. [place] [address] documented as of this encounter Procedures Procedure Name Priority Date/Time Associated Diagnosis Comments QUANTIFERON-TB GOLD PLUS, 4T Routine 06/28/2019 12:54 PM GANG INVESTIGATOR Acute ulcerative colitis with complication (CMS/HCC HHS/HCC) TPMT ACTIVITY Routine 06/28/2019 12:54 PM GANG INVESTIGATOR Acute ulcerative colitis with complication (CMS/HCC HHS/HCC) HEPATITIS PANEL,ACUTE Routine 06/28/2019 12:54 PM GANG INVESTIGATOR Acute ulcerative colitis with complication (CMS/HCC HHS/HCC) PATHOLOGY Routine 06/28/2019 11:15 AM GANG INVESTIGATOR COLONOSCOPY DIAGNOSTIC WITH/WITHOUT SPECIMEN BRUSH/WASH 06/28/2019 11:02 AM GANG INVESTIGATOR R19.7, K92.1 Special Needs 0900 CHORIONIC GONADOTROPIN HCG QL Routine 06/28/2019 9:50 AM GANG INVESTIGATOR documented in this encounter Results * HEPATITIS PANEL,ACUTE (06/28/2019 12:54 PM GANG INVESTIGATOR) HEPATITIS B SURFACE AG NON-REACTI VE NON-REACTI VE 06/28/2019 11:43 PM GANG INVESTIGATOR [facility] HEP B CORE IGM NON-REACTI VE NON-REACTI VE 06/28/2019 11:43 PM GANG INVESTIGATOR [facility] HAV IGM NON-REACTI VE NON-REACTI VE 06/28/2019 11:43 PM GANG INVESTIGATOR [facility] HEPATITIS C AB NON-REACTI VE NON-REACTI VE 06/28/2019 11:43 PM GANG INVESTIGATOR [facility] 06/28/2019 12:5 4 PM GANG INVESTIGATOR Stoney Johns MD LABORATORY Final Result [facility] [address] [place] [id number], * QUANTIFERON-TB GOLD PLUS, 4T (06/28/2019 12:54 PM GANG INVESTIGATOR) Pathologist [facility] QUANTIFERON TB PLUS 4T NEGATIVE NEGATIVE 07/02/2019 11:23 PM GANG INVESTIGATOR [facility] BEATRICE JAMIL Comment: Negative test result. M. tuberculosis complex infection unlikely. NIL (TB) 0.02 IU/mL 07/02/2019 11:23 PM GANG INVESTIGATOR [facility] LOUIS-CARMELA LLY MITOGEN NIL 5.79 IU/mL 07/02/2019 11:23 PM GANG INVESTIGATOR [facility] MYERS-CARMELA LLY TB1 AG MINUS NIL 0.04 IU/mL 07/02/19 20 11:23 PM GANG INVESTIGATOR [facility] [place]-CARMELA LLY TB2 AG MINUS NIL 0.02 IU/mL 07/02/19 20 11:23 PM GANG INVESTIGATOR [facility] BEATRICE JAMIL Comment: The Nil tube [...] T-lymphocytes. For additional information, please refer to http://education.[employer]/faq/MNX824 (This link is being provided for information/ educational purposes only.) Test Performed by Jeevan Schmitt, [facility], [address] [place] [address] José Antonio Mart M.D., Ph.D., Director of Laboratories , [facility] [id number] 06/28/2019 12:5 4 PM GANG INVESTIGATOR Stoney Johns MD LABORATORY Final Result [facility] [address] [place] [phone], * TPMT ACTIVITY (06/28/2019 12:54 PM GANG INVESTIGATOR) [facility] TPMT ACTIVITY 18 07/05/2019 6:15 PM GANG INVESTIGATOR [facility] ROMARIO GELLER Comment: Units: ??nmol/hr/mL RBC Reference Range for TPMT Activity: ??>12 ? Normal 4-12 ? Heterozygote or low metabolizer ?? <4 ? Homozygote Deficient Range This test was developed and its analytical performance characteristics have been determined by [facility]. It has not been cleared or approved by FDA. This assay has been validated pursuant to the CLIA regulations and is used for clinical purposes. Test performed by [facility] ? [address], ? [place] [address] ? Cleaner Window: Elyse Canela MD,PHD,SANDRA Test Reported by [facility], [facility], [address] [place] [address] José Antonio Mart M.D., Ph.D., Director of Laboratories , [place] [id number] 06/28/2019 12:5 4 PM GANG INVESTIGATOR Stoney Johns MD LABORATORY Final Result [facility] [address] [phone], * Pathology (06/28/2019 11:15 AM GANG INVESTIGATOR) Tissue specimen (specimen) COLON STRUCTURE / Unknown 06/28/2019 11:15 AM GANG INVESTIGATOR Comment:Hx diarrhea Tissue specimen (specimen) COLON STRUCTURE / Unknown 06/28/2019 11:18 AM GANG INVESTIGATOR Tissue specimen (specimen) COLON STRUCTURE / Unknown 06/28/2019 11:22 AM GANG INVESTIGATOR Tissue specimen (specimen) COLON STRUCTURE / Unknown 06/28/2019 11:25 AM GANG INVESTIGATOR Narrative [facility] - 07/01/2019 1:45 PM GANG INVESTIGATOR Date of Service: ??06/28/2019 Pre-operative Diagnosis: ??R19.7, [...] entirely in block C. (CPT Code: ?? 51699 x4) Site: ??[facility] ([facility]) D: ??06/28/2019 02:39 PM #[id number] T: ??06/28/2019 02:53 PM /NTS A copy [...] ??tissue and dense lymphocytic infiltration. ?? Site: ??[facility] ([facility]) D: ??07/01/2019 11:49 AM #[id number] T: ??07/01/2019 01:10 PM /NTS us Stoney Johns MD PATHOLOGY/CYTOLOGY ORDERABLES Fi nal Result Performing Organization Address [facility]/ZIP Co de Phone Number [facility] [address] [place] [address], [place] [phone] * CHORIONIC GONADOTROPIN HCG QL (06/28/2019 9:50 AM GANG INVESTIGATOR) PREG SCREEN-SERUM NEGATIVE NEGATIVE 06/28/2019 10:11 AM GANG INVESTIGATOR [facility] 06/28/2019 9:50 AM GANG INVESTIGATOR us Stoney Johns MD LABORATORY Final Result Performing Organization Address [facility] de Phone Number [facility] [address] [place] [address], [place] [phone] documented in this encounter Visit Diagnoses Diagnosis Acute ulcerative colitis with complication ([facility]/HCC [facility]/HCC)- Primary documented in this encounter Administered Medications Inactive Administered Medications - up to 3 most recent administrations Medication Order MAR Action Action Date Dose Rate Site lactated ringers infusion at 10 mL/hr, Intravenous, Continuous, Starting on Mon06/28/19 at 0945, Until Mon06/28/19 at 1451, Infuse at TKO rate, Pre-Op New Bag 06/28/2019 9:51 AM GANG INVESTIGATOR 10 mL/hr documented in this encounter Active and Recently Administered Medications Times are shown in GANG INVESTIGATOR. Continuous Medication Order 06/26/2019 06/27/2019 06/28/2019 lactated ringers infusion at 10 mL/hr, Intravenous, Continuous, Starting on Mon06/28/19 at 0945, Until Mon06/28/19 at 1451, Infuse at TKO rate, Pre-Op 0951 (New Bag - Prov ider: Humera Mcgee RN)1128 (Infusion Stop Time - Provider: Dianna Major CRNA) documented in this encounter
--- OUTSIDE RECORDS SUMMARY | 2024-06-08 08:23 | XMS_ITS | Encounter Summary ---
Author Organization [facility] Address [facility] [place] [address] [place] [address] Care Team Providers Care Sales Supervisor Name Role Phone Unavailable Primary Care Provider Unavailabl e Encounter Details Date Type Department Care Team (Late Contact Info) Description 05/06/2019 Scan [facility] [address] [facility] [address] [place] [phone] Scanned, Documents Social History Tobacco Use Types [...] [facility] - [place] [address] [place] [phone] Charla Campos PA-C [address] [facility] [place] [address] documented as of this encounter Visit Diagnoses Not on filedocumented in this encounter
--- OUTSIDE RECORDS SUMMARY | 2024-06-08 08:23 | XMS_ITS | Encounter Summary ---
Author Organization [facility] Address [address] [place] [address]. [place] [address] [place] [address] Care Team Providers Care Sensor Operator Name Role Phone Unavailable Primary Care Provider Unavailabl e Reason for Visit * Reason Onset Date Comments Information 07/10/2019 Encounter Details Date Type Department Care Team (Late st Contact Info) Description 07/10/2019 Telephone [facility] Multispecialty Care - [facility] [address] [facility], [address] [place] [address] Seble Bliss NP 3 [facility]. [address] [place] [address] Information Social History Tobacco Use [...] call for any ongoing concerns or questions. CLIPPER documented in this encounter Plan of Treatment Upcoming Encounters Date Type Department Care Team (Late st Contact Info) Description 08/21/2024 4:00 PM CDT Office Visit [facility] Family Medicine - [place] [address] [place] [phone] Charla Campos PA-C [address] [place] [phone] documented as of this encounter Visit Diagnoses Diagnosis Ulcerative pancolitis without complication (CMS/HCC HHS/HCC)- Primary documented in this encounter
--- OUTSIDE RECORDS SUMMARY | 2024-06-08 08:23 | XMS_ITS | Encounter Summary ---
Author Organization [facility] Address [address] [place] [address]. [place] [address] [place] [address] Care Team Providers Care Tobacco Hanger Name Role Phone Unavailable Primary Care Provider Unavailabl e Encounter Details Date Type Department Care Team (Latest Contact Info) Description 06/19/2019 10:05 AM MILK POWDER GRINDER - 06/19/2019 11:59 PM [facility] Hospital Encounter [facility] [place], [place] [id number] Seble Bliss, JORI [address] [facility]. [address] [place], [place] [id number] Discharge Disposition: Home or Self Care (Routine [...] this encounter Medications at Time of Discharge desogestrel-ethinyl estradiol (AZURETTE) 0.15-0.02/0.01 MG (16/10) tabletIndications:Ro utine general medical examination at a health care facility Take 1 tablet by mouth daily. 28 tablet 11 9 06/22/19 21 dicyclomine 20 MG tabletIndications:Ch ronic diarrhea Take 1 tablet (20 mg total) by mouth every 6 (six) hours. 120 tablet 1 0 08/16/[address] sprinkle 125 MG capsuleIndications:S eizure disorder ([facility]/HCC [facility]) Take 3 capsules in the morning and 4 capsules in the evening. 210 capsule 1 9 08/25/19 21 levETIRAcetam 750 MG tablet TAKE 1 TABLET TWICE DAILY FOR THE FIRST WEEK THEN TAKE 2 TABLET TWICE DAILY FOR THE SECOND WEEK DIRECTED 0 05/17/20 22 Levocetirizine Dihydrochloride (XYZAL OR) 12/29/19 21 Na sulfate-K sulfate-Mg sulfate (SUPREP BOWEL PREP KIT) 17.5-3.13-1.6 GM/177ML SolutionIndications: Chronic diarrhea,Bloody diarrhea Take 177 mLs by mouth every 12 (twelve) hours. Take as directed by instruction sheet. 2 Bottle 0 06/28/19 20 documented as of this encounter Progress Notes * Seble Bliss NP - 06/20/2019 8:56 AM CST Called and informed patient of all of the results of the stool specimens with the exception of the ova and parasite which is still pending. She does have positive findings on the lactoferrin WBCs in the stool but otherwise Cryptosporidium and Giardia, C. difficile, and stool cultures were all negative. Patient was relieved by this and will continue on with diagnostic colonoscopy as planned previously. POWDER GRINDER * Seble Bliss NP - 06/19/2019 11:59 PM CST Informed pt about all fecal testing. No change in pt health and will continue with colonoscopy as previously planned. POWDER GRINDER documented in this encounter Plan of Treatment Upcoming Encounters Date Type Department Care Team (Late st Contact Info) Description 08/21/2024 4:00 PM CDT Office Visit [facility] Medical Group Family Medicine - [place] [address] [place] [phone] Charla Campos PA-C [address] [facility] [place] [address] documented as of this encounter Procedures Procedure Name Priority Date/Time Associated Diagnosis Comments GIARDIA AG, STOOL Routine 06/19/2019 10: 07 AM MILK POWDER GRINDER Chronic diarrhea STOOL FOR WBC Routine 06/19/2019 10:07 AM MILK POWDER GRINDER Chronic diarrhea CLOSTRIDIUM DIFFICILE Routine 06/19/2019 10:07 AM MILK POWDER GRINDER Chronic diarrhea O&P CONC&SMEAR TO REF LAB Routine 06/19/2019 10:07 AM MILK POWDER GRINDER Chronic diarrhea CULTURE STOOL Routine 06/19/2019 10:07 AM MILK POWDER GRINDER Chronic diarrhea CRYPTOSPORIDUM AG, STOOL Routine 06/19/2019 10:07 AM MILK POWDER GRINDER Chronic diarrhea documented in this encounter Results * O&P CONC&SMEAR TO REF LAB (06/19/2019 10:07 AM MILK POWDER GRINDER) SPECIMEN SOURCE STOOL 0 10:08 AM MILK POWDER GRINDER [facility] O & P EXAMINATION (STOOL) REPORT 06/26/2019 7:53 PM MILK POWDER GRINDER [employer] [facility] ROBERT GELLER Comment: Ova and Parasites, Concentrate and Permanent Smear Examination for Ova and Parasites SOURCE : STOOL Result/Comment: NO OVA AND PARASITES SEEN. Reference Range: ??No Ova and Parasites seen Routine Ova and Parasite Exam may not detect some parasites that occasionally cause diarrheal illness. Test code(s) 20033O[77214](Cryptosporidium Ag, DFA) and/or 78653O[77598] (Cyclospora and Isospora Exam) may be ordered to detect these parasites. One negative sample does not necessarily rule out the presence of a parasitic infection. Assay performed by wet mount after concentration. Parasite Exam, Trichrome Stain SOURCE : STOOL Result/Comment: NO OVA AND PARASITES SEEN. Routine Ova and Parasite Exam may not detect some parasites that occasionally cause diarrheal illness. Test code(s) 05291X[40988](Cryptosporidium Ag, DFA) and/or 61403P[05216] (Cyclospora and Isospora Exam) may be ordered to detect these parasites. One negative sample does not necessarily rule out the presence of a parasitic infection. For additional information, please refer to https://education.Infochimps/faq/VLQ878 (This link is being provided for informational/ educational purposes only.) Test Performed by [employer] [place], [employer] [facility], [address] [place] [address] José Antonio Mart M.D., Ph.D., Director of Laboratories , [place] [id number] STOOL SPECIMEN / Unknown 06/19/2019 10:07 AM MILK POWDER GRINDER Seble Bliss NP MICROBIOLOGY - GENERAL ORDERABLE S Final Result [employer] [address] , [place] [phone] [facility] [address] [place] [address], [place] [phone] * CLOSTRIDIUM DIFFICILE (06/19/2019 10:07 AM MILK POWDER GRINDER) Pathologist [facility] MOLECULAR ASSAY NEGATIVE NEGATIVE 06/19/2019 12:08 PM MILK POWDER GRINDER [facility] Comment: NOTE: C. difficile molecular tests [...] STOOL SPECIMEN / Unknown 06/19/2019 10:07 AM MILK POWDER GRINDER us Seble Bliss SYSTEM DEVELOPER ASSOCIATE MANAGER BODY FLUIDS AND STOOLS ORDERABLE S Final Result Performing Organization Address City/[facility]/ZIP Co de Phone Number [facility] 3 [place] [address], [place] [phone] * GIARDIA AG, STOOL (06/19/2019 10:07 AM MILK POWDER GRINDER) GIARDIA ANTIGEN (STOOL) NEGATIVE NEGATIVE 06/19/2019 11:42 AM MILK POWDER GRINDER [facility] STOOL SPECIMEN / Unknown 06/19/2019 10:07 AM MILK POWDER GRINDER Seble Bliss SYSTEM DEVELOPER ASSOCIATE MANAGER BODY FLUIDS AND STOOLS ORDERABLE S Final Result Performing Organization Address [facility] Co de Phone Number [facility] 3 [place] [address], [place] [phone] * CRYPTOSPORIDUM AG, STOOL (06/19/2019 10:07 AM MILK POWDER GRINDER) CRYPTOSPOR AG (STOOL) NEGATIVE NEGATIVE 06/19/2019 11:42 AM MILK POWDER GRINDER [facility] STOOL SPECIMEN / Unknown 06/19/2019 10:07 AM MILK POWDER GRINDER Seble Bliss SYSTEM DEVELOPER ASSOCIATE MANAGER BODY FLUIDS AND STOOLS ORDERABLE S Final Result [facility] [address] [place] [address], [place] [phone] * Stool Culture (06/19/2019 10:07 AM MILK POWDER GRINDER) SPEC DESCRIPTION STOOL 06/19/2019 10:08 AM MILK POWDER GRINDER [facility] SPECIAL REQUESTS NO SPECIAL REQUEST 06/19/2019 10:08 AM MILK POWDER GRINDER [facility] CULTURE RESULT NEGATIVE FOR SHIGA TOXIN 1 AND 2 06/22/2019 7:31 AM MILK POWDER GRINDER [facility] CULTURE RESULT NO ENTERIC PATHOGENS ISOLATED 06/22/2019 7:31 AM [facility] CULTURE RESULT NOTE: STOOL CULTURES ARE ROUTINELY SCREENED FOR SALMONELLA,SH IGELLA,YERSIN [place],AEROMONAS, PLESIOMONAS,C AMPYLOBA CTER,E.COLI 0157,OVERGROW THS OF S.AUREUS,YEAS T AND P. AERUGINOSA 06/22/2019 7:31 AM MILK POWDER GRINDER [facility] Stool specimen (specimen) STOOL SPECIMEN / Unknown 06/19/2019 10:07 AM MILK POWDER GRINDER 06/19/2019 10:14 AM MILK POWDER GRINDER us Seble Bliss NP MICROBIOLOGY - GENERAL ORDERABLE S Final Result [facility] [address] [place] [address], [place] [phone] * (ABNORMAL) STOOL FOR WBC (06/19/2019 10:07 AM MILK POWDER GRINDER) STOOL WBC LACTOFERRIN POSITIVE( A) NEGATIVE 06/19/2019 11:42 AM MILK POWDER GRINDER [facility] STOOL SPECIMEN / Unknown 06/19/2019 10:07 AM MILK POWDER GRINDER us Seble Bliss SYSTEM DEVELOPER ASSOCIATE MANAGER BODY FLUIDS AND STOOLS ORDERABLE S Final Result [facility] [address] [place] [address], [place] [phone] documented in this encounter Visit Diagnoses Diagnosis Chronic diarrhea Diarrhea documented in this encounter
--- OUTSIDE RECORDS SUMMARY | 2024-06-08 08:23 | XMS_ITS | Encounter Summary ---
Author Organization [facility] Address [address] [place] [address]. [place] [address] [place] [address] Care Team Providers Care Block Setter Gypsum Name Role Phone Unavailable Primary Care Provider Unavailabl e Encounter Details Date Type Department Care Team (Late Contact Info) Description 05/07/2019 7:35 AM PRE SCHOOL TEACHER Laboratory Only [facility] [address] [facility] [address] [place] [address] Social History Tobacco Use Types [...] free T4 and free T3. Diagnosis: hypothyroidism SCHOOL TEACHER documented in this encounter Plan of Treatment Upcoming Encounters Date Type Department Care Team (Late Contact Info) Description 08/21/2024 4:00 PM CDT Office Visit [facility] Medical Group Family Medicine - [place] [phone] Charla Campos PA-C 100 [facility] [place] [address] documented as of this encounter Procedures Procedure Name Priority Date/Time Associated Diagnosis Comments TSH W/REFLEX Routine 05/07/2019 7:48 AM PRE SCHOOL TEACHER Fatigue, unspecified type COMPREHENSIVE METABOLIC PANEL Routine 05/07/2019 7:48 AM PRE SCHOOL TEACHER Fatigue, unspecified type LIPID PANEL Routine 05/07/2019 7:48 AM PRE SCHOOL TEACHER Fatigue, unspecified type CBC W/DIFF AUTOMATED Routine 05/07/2019 7:48 AM PRE SCHOOL TEACHER Fatigue, unspecified type COLLECTION VENOUS BLOOD VENIPUNCTURE Routine 05/07/2019 7:47 AM PRE SCHOOL TEACHER Fatigue, unspecified type documented in this encounter Results * (ABNORMAL) CBC W/DIFF AUTOMATED (05/07/2019 7:48 AM PRE SCHOOL TEACHER) WBC 13.2(H) 3.6 - 10.2 K/CU [facility] RBC 5.0 4.1 - 5.3 M/CU [facility] HGB 14.5 11.9 - 15.8 GM/DL [facility] HCT 45.0 37.4 - 48.3 [facility] MCV 90 82 - 99 [facility] MCH 29 27 - 33 [facility] MCHC 32 32 - 36 [facility] PLT 281 150 - 450 K/CU MM [facility] MPV 10.6 9.8 - 12.7 [facility] [...] GRANULOCYTES 0.1 X10'3/UL [facility] 05/07/2019 7:48 AM PRE SCHOOL TEACHER 05/08/2019 4:46 AM PRE SCHOOL TEACHER Narrative [facility] - 05/08/2019 5:23 AM PRE SCHOOL TEACHER REPORT: [id number] us Karson Payne MD LABORATORY Final Resul t Performing Organization Address City/[facility] [place] [address], * (ABNORMAL) TSH W/REFLEX (05/07/2019 7:48 AM PRE SCHOOL TEACHER) TSH 8.29(H) 0.30 - 5.00 MCIU/ML [facility] 05/07/2019 7:48 AM PRE SCHOOL TEACHER 05/08/2019 4:46 AM PRE SCHOOL TEACHER [facility]08[facility] 7:48 AM PRE SCHOOL TEACHER REPORT: [id number] us Karson Payne MD LABORATORY Final Resul t Performing Organization Address [facility] [place] [address], * (ABNORMAL) LIPID PANEL (05/07/2019 7:48 AM PRE SCHOOL TEACHER) CHOLESTEROL 163 0 - 199 MG/DL [facility] TRIGLYCERIDES 173(H) 0 - 149 MG/DL [facility] HDL 38(L) 50 - 240 MG/DL [facility] LDL (CALCULATED) 90 0 - 99 MG/DL [...] REPORT. CIRCULATION 2002; 106:3143. 05/07/2019 7:48 AM PRE SCHOOL TEACHER 05/08/2019 4:46 AM PRE SCHOOL TEACHER Narrative [facility] - 05/08/2019 7:48 AM PRE SCHOOL TEACHER REPORT: [id number] IS PATIENT FASTING?->YES us Karson Payne MD LABORATORY Final Resul t [facility] [address] [place] [address], [place] [phone] * (ABNORMAL) COMPREHENSIVE METABOLIC PANEL (05/07/2019 7:48 AM PRE SCHOOL TEACHER) [facility] GLUCOSE 82 70 - 99 MG/DL [facility] BUN 12 6 - 20 MG/DL [facility] CREATININE S/P/B 0.7 0.5 - 1.2 MG/DL [facility] EGFR AFR. AMER. 136 60 - 300 ML/MIN/1.7 3 M2 [facility] EGFR NON-AFR. AMER. 112 60 - 300 ML/MIN/1.7 3 M2 [facility] SODIUM S/P/B 140 136 - 145 MEQ/L [facility] POTASSIUM S/P/B 4.4 3.5 - 5.3 MEQ/L [facility] CHLORIDE S/P/B 102 98 - 107 MEQ/L [facility] CO2 23 23 - 31 MEQ/L [facility] ANION GAP 15 8 - 16 MMOLES/L [facility] CALCIUM S/P/B 9.4 8.4 - 10.5 MG/DL [facility] TOTAL PROTEIN S/P/B 7.1 6.0 - 8.3 GM/DL [facility] ALBUMIN S/P/B 4.1 3.5 - 5.0 GM/DL [facility] AST 12 11 - 32 IU/L [facility] ALT <5(L) 9 - 43 IU/L [facility] ALKALINE PHOSPHATASE S/P/B 53 35 - 129 IU/L [facility] BILIRUBIN TOTAL S/P/B 0.3 0.0 - 1.0 MG/DL [facility] 05/07/2019 7:48 AM PRE SCHOOL TEACHER 05/08/2019 4:46 AM PRE SCHOOL TEACHER Narrative [facility] - 05/08/2019 7:48 AM PRE SCHOOL TEACHER REPORT: [id number] IS PATIENT FASTING?->YES us Karson Payne MD LABORATORY Final Resul t [facility] [address] [place] [address], documented in this encounter Visit Diagnoses Diagnosis Fatigue, unspecified type- Primary documented in this encounter
--- OUTSIDE RECORDS SUMMARY | 2024-06-08 08:23 | XMS_ITS | Encounter Summary ---
Author Organization [facility] Address [facility] [place] [address] [place] [address] Care Team Providers Care Product Assembler Name Role Phone Unavailable Primary Care Provider Unavailabl e Reason for Visit * Auth/Cert Specialty Diagnoses / Procedures Referred By Yodit kenney Referred To Contact Diagnoses R19.7, K92.1 Procedures COLONOSCOPY DIAGNOSTIC WITH/WITHOUT SPECIMEN BRUSH/WASH Referral ID Status Reason Start Date Expiration Date Visits Re quested Visits Authorized [id number] 1 1 Encounter Details Date Type Department Care Team (Late st Contact Info) Description 06/28/2019 10:23 AM MANAGER NIGHT - 06/28/2019 10:52 AM MANAGER NIGHT Surgery [facility] [address] [place] [address] Stoney Johns MD [address] [place] [address] COLONOSCOPY WITH BIOPSIES Surgery Details Date/Time Status [...] Comments Blood Pressure 127/79 06/28/2019 9:45 AM MANAGER NIGHT Pulse 99 06/28/2019 9:45 AM MANAGER NIGHT Temperature 35.8 ??C (96.5 ??F) 06/28/2019 9:45 AM CS T Respiratory Rate 16 06/28/2019 9:45 AM MANAGER NIGHT Oxygen Saturation 96% 06/28/2019 9:45 AM MANAGER NIGHT Inhaled Oxygen Concentration - - Weight 131.5 kg (290 lb) 06/21/2019 9:56 AM MANAGER NIGHT Height 180.3 cm (5' 11 ) 06/21/2019 9:56 AM MANAGER NIGHT Body Mass Index 40.45 06/21/2019 9:56 AM MANAGER NIGHT documented in this encounter Discharge Instructions * Discharge Instructions* Stoney Johns MD - 06/28/2019 11:44 AM MANAGER NIGHT Images from the original note were not [...] more common in Caucasians and people of Alevism descent What are the main signs? ?? [...] IBD. Where can I learn more? FamilyDoctor.org http://familydoctor.org/familydoctor/en/diseases-conditions/bjwdfdyayotl-eugby-g isease/symptoms.html National Digestive Diseases Information Clearinghouse http://digestive.niddk.nih.gov/ddiseases/pubs/crohns_ez/index.aspx National Digestive Diseases Information Clearinghouse http://digestive.niddk.nih.gov/ddiseases/pubs/colitis/index.aspx U.S. Department of Health and Human Services Office on Women's Health https://www.womenshealth.gov/publications/our-publications/fact-sheet/inflammato mn-yefdk-kqhnlkm.html Last Reviewed Date 2016-11-25 Consumer Information Use [...] right for you. Copyright Copyright ?? 2019 [employer]. and its affiliates and/or licensors. All rights [...] belly pain. Where can I learn more? [place] [employer] Association http://www.gastro.org/info_for_patients/mxaxhlakugv-456-artl-wf-m-qyxcwfijamd [place] Society for Gastrointestinal Endoscopy http://www.asge.org/patients/patients.aspx?lo=747 National Digestive Diseases Information Clearinghouse http://digestive.niddk.nih.gov/ddiseases/pubs/colonoscopy/ Last [...] right for you. Copyright Copyright ?? 2018 [employer], [employer]. and its affiliates and/or licensors. All rights reserved. ?? GER NIGHT documented in this encounter Medications at Time [...] DR sprinkle 125 MG capsuleIndications:Se izure disorder ([facility] HHS/HCC) Take 3 capsules in the morning and 4 capsules in the evening. 210 capsule 1 05/16/2019 1 levETIRAcetam 750 MG tablet TAKE 1 TABLET TWICE DAILY FOR THE FIRST WEEK THEN TAKE 2 TABLET TWICE DAILY FOR THE SECOND WEEK DIRECTED 06/16/2019 2 Levocetirizine Dihydrochloride (XYZAL OR) 1 predniSONE 20 MG tabletIndications:Acu te ulcerative colitis with complication ([facility]) Take 2 tablets (40 mg total) by mouth daily for 60 days. 120 tablet 06/28/2019 0 documented as of this encounter Progress Notes * Stoney Johns MD - 06/28/2019 12:51 PM CST You biopsies are consistent with ulcerative colitis. See me in office GER NIGHT documented in this encounter H&P Notes * [...] during recuperation were discussed with the patient/family/personal registered representative. Reasonable alternatives to the patient's proposed procedure/surgery including benefits, risks, and side effects related to the alternatives and the risks related to not receiving the proposed care were also discussed with the patient/family/personal registered representative. Questions were answered and the patient/family/personal registered representative verbalized understanding and desires to proceed. GER NIGHT Source Note - Seble Bliss NP - 06/19/2019 8:00 AM MANAGER NIGHT Images from the original note were not [...] and texture. Patient has used Pepto-Bismol and bebk-jdm-mnablgm antidiarrheal medication with not much effect on [...] abdomen. Patient was previously seen in the [facility] emergency room on 12/15/2018 due to 2 [...] The patient is not nervous/anxious. Family in [place]. ?? Medications: Current Outpatient Medications: ??? desogestrel-ethinyl [...] months. Patient has attempted to use Pepto-Bismol, erfk-ezp-ibcyaoo antidiarrheal pills with minimal effects and one [...] were discussed with the patient and/or family/personal registered representative. Risks can include but are not limited to: discomfort, missing lesions, allergic or adverse reaction to the sedative, perforation of the bowel which may require hospitalization and surgery, bleeding, infection, aspiration, and evendeath. Questions were answered and the patient/family/personal registered representative verbalized understanding anddesires to proceed. Seble Bliss NP 06/19/2019 GER NIGHT documented in this encounter OR Notes * Op Note - Stoney Johns MD - 06/28/2019 11:31 AM CST [facility] OpNote COLONOSCOPY WITH BIOPSIES Procedure Note Paige Bernardo Waqar 06/28/2019 1023 Procedure(s) (LRB): COLONOSCOPY WITH BIOPSIES (N/A) Surgeon(s): Stoney Johns MD Staff: Circulating Nurse 1: Bridget Mahan RN Scrub Person 1: Sujata Whitman RN Anesthesia: Monitor Anesthesia Care MATHEMATICAL TECHNICIAN: Dianna Major CRNA Pre-Op Diagnosis: R19.7, K92.1 [...] Time: 11:32 AM Voice recognition software utilized. GER NIGHT documented in this encounter Plan of Treatment Upcoming Encounters Date Type Department Care Team (Late st Contact Info) Description 08/21/2024 4:00 PM CDT Office Visit [facility] Medical Group Family Medicine - [place] [address] Charla Campos PA-C [address] [place] [address] documented as of this encounter Procedures Procedure Name Priority Date/Time Associated Diagnosis Comments QUANTIFERON-TB GOLD PLUS, 4T Routine 06/28/2019 12:54 PM MANAGER NIGHT Acute ulcerative colitis with complication ([facility]/HCC [facility]) TPMT ACTIVITY Routine 06/28/2019 12:54 PM MANAGER NIGHT Acute ulcerative colitis with complication (CMS/HCC HHS/HCC) HEPATITIS PANEL,ACUTE Routine 06/28/2019 12:54 PM MANAGER NIGHT Acute ulcerative colitis with complication (CMS/HCC HHS/HCC) PATHOLOGY Routine 06/28/2019 11:15 AM MANAGER NIGHT COLONOSCOPY DIAGNOSTIC WITH/WITHOUT SPECIMEN BRUSH/WASH 06/28/2019 11:02 AM MANAGER NIGHT R19.7, K92.1 Special Needs 0900 CHORIONIC GONADOTROPIN HCG QL Routine 06/28/2019 9:50 AM MANAGER NIGHT documented in this encounter Results * HEPATITIS PANEL,ACUTE (06/28/2019 12:54 PM MANAGER NIGHT) Pathologist [facility] HEPATITIS B SURFACE AG NON-REACTI VE NON-REACTI VE 06/28/2019 11:[address] [facility] HEP B CORE IGM NON-REACTI VE NON-REACTI VE 06/28/2019 11:[address] [facility] HAV IGM NON-REACTI VE NON-REACTI VE 06/28/2019 11:[address] [facility] HEPATITIS C AB NON-REACTI VE NON-REACTI VE 06/28/2019 11:[address] [facility] 06/28/2019 12:5 4 PM MANAGER NIGHT Stoney Johns MD LABORATORY Final Result [facility] [address] [place] [address], * QUANTIFERON-TB GOLD PLUS, 4T (06/28/2019 12:54 PM MANAGER NIGHT) Pathologist [facility] QUANTIFERON TB PLUS 4T NEGATIVE NEGATIVE 07/02/2019 11:23 PM MANAGER NIGHT [facility] ROMARIO JAMIL Comment: Negative test result. M. tuberculosis complex infection unlikely. NIL (TB) 0.02 IU/mL 07/02/2019 11:23 PM MANAGER NIGHT [facility] MYERS-CARMELA LLY MITOGEN NIL 5.79 IU/mL 07/02/2019 11:23 PM MANAGER NIGHT [facility] MYERS-CARMELA LLY TB1 AG MINUS NIL 0.04 IU/mL 07/02/19 11:23 PM MANAGER NIGHT [facility] MYERS-PERRYTI LLY TB2 AG MINUS NIL 0.02 IU/mL 07/02/19 11:23 PM MANAGER NIGHT [facility] MYERS-CARMELA LLY Comment: The Nil tube [...] T-lymphocytes. For additional information, please refer to http://education.[employer].FClub/faq/PDM522 (This link is being provided for information/ educational purposes only.) Test Performed by Jeevan Schmitt, [facility], [address] [place] [address] José Antonio Mart M.D., Ph.D., Director of Laboratories , [facility] [id number] 06/28/2019 12:5 4 PM MANAGER NIGHT us Stoney Johns MD LABORATORY Final Result [employer] [place] [address] [place] [address], * TPMT ACTIVITY (06/28/2019 12:54 PM MANAGER NIGHT) TPMT ACTIVITY 18 07/05/2019 6:15 PM MANAGER NIGHT [employer] ROBERT GELLER Comment: Units: ??nmol/hr/mL RBC Reference Range for TPMT Activity: ??>12 ? Normal 4-12 ? Heterozygote or low metabolizer ?? <4 ? Homozygote Deficient Range This test was developed and its analytical performance characteristics have been determined by [facility]. It has not been cleared or approved by FDA. This assay has been validated pursuant to the CLIA regulations and is used for clinical purposes. Test performed by [facility] ? [address], ? [place] [address] ? Pipe Coverer Helper: Elyse Canela MD,PHD,SANDRA Test Reported by [facility], [facility], [address] [place] [address] José Antonio Mart M.D., Ph.D., Director of Laboratories , CLIA [id number] 06/28/2019 12:5 4 PM MANAGER NIGHT Stoney Johns MD LABORATORY Final Result [address] [address], * Pathology (06/28/2019 11:15 AM MANAGER NIGHT) Tissue specimen (specimen) COLON STRUCTURE / Unknown 06/28/2019 11:15 AM MANAGER NIGHT Comment:Hx diarrhea Tissue specimen (specimen) COLON STRUCTURE / Unknown 06/28/2019 11:18 AM MANAGER NIGHT Tissue specimen (specimen) COLON STRUCTURE / Unknown 06/28/2019 11:22 AM MANAGER NIGHT Tissue specimen (specimen) COLON STRUCTURE / Unknown 06/28/2019 11:25 AM MANAGER NIGHT Narrative [facility] - 07/01/2019 1:45 PM MANAGER NIGHT Date of Service: ??06/28/2019 Pre-operative Diagnosis: ??R19.7, [...] entirely in block C. (CPT Code: ?? 25501 x4) Site: ??[facility] ([facility]) D: ??06/28/2019 02:39 PM #[id number] T: ??06/28/2019 02:53 PM /NTS A copy [...] and dense lymphocytic infiltration. ?? Site: ??[facility] ([facility]) D: ??07/01/2019 11:49 AM #[id number] T: ??07/01/2019 01:10 PM /NTS us Stoney Johns MD PATHOLOGY/CYTOLOGY ORDERABLES Fi nal Result Performing Organization Address City/[facility]/ZIP Co de Phone Number [facility] [address] [place] [address], [place] [phone] * CHORIONIC GONADOTROPIN HCG QL (06/28/2019 9:50 AM MANAGER NIGHT) PREG SCREEN-SERUM NEGATIVE NEGATIVE 06/28/2019 10:11 AM MANAGER NIGHT [facility] 06/28/2019 9:50 AM MANAGER NIGHT us Stoney Johns MD LABORATORY Final Result Performing Organization Address [facility]/ZIP Co de Phone Number [facility] [address] [place] [address], [place] [phone] documented in this encounter Visit Diagnoses Not on filedocumented in this encounter Administered Medications Inactive Administered Medications - up to 3 most recent administrations Medication Order MAR Action Action Date Dose Rate Site lactated ringers infusion at 10 mL/hr, Intravenous, Continuous, Starting on Mon06/28/19 at 0945, Until Mon06/28/19 at 1451, Infuse at TKO rate, Pre-Op New Bag 06/28/2019 9:51 AM MANAGER NIGHT 10 mL/hr documented in this encounter Active and Recently Administered Medications Times are shown in MANAGER NIGHT. Continuous Medication Order 06/26/2019 06/27/2019 06/28/2019 lactated ringers infusion at 10 mL/hr, Intravenous, Continuous, Starting on Mon06/28/19 at 0945, Until Mon06/28/19 at 1451, Infuse at TKO rate, Pre-Op 0951 (New Bag - Prov ider: Humera Mcgee RN)1128 (Infusion Stop Time - Provider: Dianna Major CRNA) documented in this encounter
--- OUTSIDE RECORDS SUMMARY | 2024-06-08 08:23 | XMS_ITS | Encounter Summary ---
Author Organization [facility] Address [facility] [place] [address] [place] [address] Care Team Providers Care Interface Analyst Name Role Phone Unavailable Primary Care [...] [facility] Family Medicine - [place] [address] [place] [phone] Charla Campos PA-C [address] [place] [address] documented as of this encounter Visit Diagnoses Not on filedocumented in this encounter
--- OUTSIDE RECORDS SUMMARY | 2024-06-08 08:23 | XMS_ITS | Encounter Summary ---
Author Organization [facility] Address [address] [place] [address]. [place] [address] [place] [address] Care Team Providers Care Die Casting Machine Maintainer Name Role Phone Unavailable Primary Care Provider Unavailabl e Encounter Details Date Type Department Care Team (Latest Contact Info) Description 07/23/2019 4:38 PM LADLE HANDLER - 07/23/2019 11:59 PM [facility] Hospital Encounter [facility] [place], [place] [phone] Seble Bliss, JORI [facility]. [address] [place], [place] [phone] Discharge Disposition: Home or Self Care (Routine [...] to pursue Humira citrate free formula biologic. E HANDLER documented in this encounter Plan of Treatment Upcoming Encounters Date Type Department Care Team (Late st Contact Info) Description 08/21/2024 4:00 PM CDT Office Visit [facility] Family Medicine - [place] [address] [place] [address] Charla Campos PA-C 100 [facility] [place] [address] documented as of this encounter Procedures Procedure Name Priority Date/Time Associated Diagnosis Comments HEPATIC FUNCTION PANEL Routine 07/23/2019 4:45 PM LADLE HANDLER Ulcerative pancolitis without complication (CMS/HCC HHS/HCC) CBC W/DIFF AUTOMATED Routine 07/23/2019 4:45 PM LADLE HANDLER Ulcerative pancolitis without complication (CMS/HCC HHS/HCC) documented in this encounter Results * (ABNORMAL) CBC W/DIFF AUTOMATED (07/23/2019 4:45 PM LADLE HANDLER) WBC 14.5(H) 4.5 - 11.0 x10'3/uL 07/23/2019 5:22 PM [facility] RBC 4.76 4.20 - 5.40 x10'6/uL 07/23/2019 5:22 PM [facility] HGB 13.5 12.0 - 16.0 G/DL 07/23/2019 5:22 PM [facility] HCT 41.5 38.0 - 48.0 % 07/23/2019 5:22 PM [facility] MCV 87.2 81.0 - 99.0 FL 07/23/2019 5:22 PM [facility] MCH 28.4 27.0 - 31.0 PG 07/23/2019 5:22 PM [facility] MCHC 32.5 32.0 - 36.0 G/DL 07/23/2019 5:22 PM [facility] RDW 13.3 11.5 - 14.5 % 07/23/2019 5:22 PM [facility] PLT 271 130 - 400 x10'3/uL 07/23/2019 5:22 PM [facility] MPV 9.8 9.3 - 12.2 FL 07/23/2019 5:22 PM [facility] DIFFERENTIAL TYPE AUTOMATED DIFFERENTIAL 07/23/2019 5:22 PM [facility] NEUTROPHILS % 57.0 % 07/23/2019 5:22 PM [facility] LYMPHOCYTES % 28.8 % 07/23/2019 5:22 PM [facility] MONOCYTES % 9.0 % 07/23/2019 5:22 PM [facility] EOSINOPHILS 3.9 % 07/23/2019 5:22 PM [facility] BASOPHILS 0.7 % 07/23/2019 5:22 PM [facility] IMMATURE GRANS % 0.6 % 07/23/19 5:22 PM [facility] ABS. NEUTROPHILS TOTAL 8.27(H) 1.80 - 7.70 x10'3/uL 07/23/2019 5:22 PM [facility] ABS. LYMPHOCYTES 4.18 1.00 - 4.80 x10'3/uL 07/23/2019 5:22 PM [facility] ABS. MONOCYTES 1.30(H) 0.24 - 0.86 x10'3/uL 07/23/2019 5:22 PM [facility] ABS. EOSINOPHILS 0.56(H) 0.04 - 0.36 x10'3/uL 07/23/2019 5:22 PM [facility] ABS. BASOPHILS 0.10(H) 0.01 - 0.08 x10'3/uL 07/23/2019 5:22 PM [facility] ABS. IMMATURE GRANULOCYTES 0.09 0.00 - 0.49 x10'3/uL 07/23/2019 5:22 PM [facility] 07/23/2019 4:45 PM LADLE HANDLER us Seble Bliss NP LABORATORY Final Result [facility] [address] [place] [address], [place] [phone] * (ABNORMAL) HEPATIC FUNCTION PANEL (07/23/2019 4:45 PM LADLE HANDLER) TOTAL PROTEIN S/P/B 7.8 6.4 - 8.2 G/DL 07/23/2019 5:49 PM LADLE HANDLER [facility] ALBUMIN S/P/B 3.6 3.4 - 5.0 G/DL 07/23/2019 5:49 PM [facility] BILIRUBIN TOTAL S/P/B 0.3 0.2 - 1.2 MG/DL 07/23/2019 5:49 PM [facility] BILIRUBIN DIRECT S/P/B <0.1 0.0 - 0.20 MG/DL 07/23/2019 5:49 PM [facility] BILIRUBIN INDIRECT S/P/B NOT CALCULATED 0.0 - 0.9 MG/DL 07/23/2019 5:49 PM [facility] ALKALINE PHOSPHATASE S/P/B 74 50 - 136 U/L 07/23/2019 5:49 PM [facility] AST 13(L) 15 - 37 U/L 07/23/2019 5:49 PM [facility] ALT 14 14 - 55 U/L 07/23/2019 5:49 PM [facility] A/G RATIO 0.9(L) 1.0 - 2.0 RATIO 07/23/2019 5:49 PM [facility] 07/23/2019 4:45 PM LADLE HANDLER Seble Bliss NP LABORATORY Final Result [facility] [address] [place] [address], documented in this encounter Visit Diagnoses Diagnosis Ulcerative pancolitis without complication (CMS/HCC HHS/HCC) documented in this encounter
--- OUTSIDE RECORDS SUMMARY | 2024-06-08 08:23 | XMS_ITS | Encounter Summary ---
Author Organization [facility] Address [facility] [place] [address] [place] [address] Care Team Providers Care Email Administrator Name Role Phone Unavailable Primary Care [...] NEW PATIENT Karson Payne MD [address] [facility] [address] [place] [address] Phone: tel: fax: Seble Bliss NP 3 [facility]. [address] [place] [address] Phone: tel:[phone] fax:[phone] Referral ID Status Reason Start Date Expiration Date Visits Re quested Visits Authorized [id number] Closed 12/24/2018 01/25/2020 100 100 Encounter Details Date Type Department Care Team (Latest Contact Info) Description 06/19/2019 8:00 AM FAMILY CONSUMER SCIENTIST Office Visit [facility] Group Multispecialty Care - [facility] 3 [facility] [address] [place] [phone] Seble Bliss NP 3 [facility]. [address] [place], [place] [phone] Hematochezia (blood in stool; pt also is [...] Comments Blood Pressure 114/84 06/19/2019 8:29 AM FAMILY CONSUMER SCIENTIST Pulse 78 06/19/2019 8:29 AM FAMILY CONSUMER SCIENTIST Temperature 36.7 ??C (98 ??F) 06/19/2019 8:29 AM FAMILY CONSUMER SCIENTIST Respiratory Rate 18 06/19/2019 8:29 AM FAMILY CONSUMER SCIENTIST Oxygen Saturation - - Inhaled Oxygen Concentration - - Weight 131.5 kg (290 lb) 06/19/2019 8:29 AM FAMILY CONSUMER SCIENTIST Height 177.8 cm (5' 10 ) 06/19/2019 8:29 AM FAMILY CONSUMER SCIENTIST Body Mass Index 41.61 06/19/2019 8:29 AM FAMILY CONSUMER SCIENTIST documented in this encounter Patient Instructions * Patient Instructions* Seble Bliss NP - 06/19/2019 8:00 AM FAMILY CONSUMER SCIENTIST Images from the original note were not [...] Be sure to include all prescription and riwd-bnl-tewnyrt (OTC) drugs, and herbal supplements. Tell the [...] days afterwards Where can I learn more? [place] [employer] https://www.cancer.org/cancer/lugql-xgifsz-yphxss/vdavwyvts-txngksyaf-iexqzaw/sc oywaryb-pbsur-labx.html [place] Society of Clinical Oncology https://www.cancer.net/ksetynwqbg-mtdelp-keiw/diagnosing-cancer/jkbfn-kys-dogzoh ures/colonoscopy National Digestive Diseases Information Clearinghouse http://digestive.niddk.nih.gov/ddiseases/pubs/colonoscopy/ [...] right for you. Copyright Copyright ?? 2019 [employer] and its affiliates and/or licensors. All rights reserved. LY CONSUMER SCIENTIST documented in this encounter Progress Notes * Seble Bliss NP - 06/19/2019 8:00 AM CST Images from the original note were not included. Gastroenterology Established Visit Reason for Visit: Hematochezia (blood in stool; pt also is having adominal pain which is causing her to lose sleep) History of Present Illness: NICOLE Zavaleta is a 23-year-old female being seen in clinic for referral by Karson Payne MD [facility] room follow-up for complaints of [...] and texture. Patient has used Pepto-Bismol and tupq-lrv-zemdqaq antidiarrheal medication with not much effect on [...] abdomen. Patient was previously seen in the [facility] emergency room on 12/15/2018 due to 2 [...] and is trying togo [facility] clinic to [facility]). Negative for dizziness and headaches. Endo/Heme/Allergies: Does not bruise/bleed easily. Psychiatric/Behavioral: Positive for depression (Slight ). The patient is not nervous/anxious. Family in [place]. ?? Medications: Current Outpatient Medications: ??? desogestrel-ethinyl [...] months. Patient has attempted to use Pepto-Bismol, ogls-dbz-ffzqetw antidiarrheal pills with minimal effects and one [...] were discussed with the patient and/or family/personal agency sales representative. Risks can include but are not limited to: discomfort, missing lesions, allergic or adverse reaction to the sedative, perforation of the bowel which may require hospitalization and surgery, bleeding, infection, aspiration, and evendeath. Questions were answered and the patient/family/personal agency sales representative verbalized understanding anddesires to proceed. Seble Bliss NP 06/19/2019 LY CONSUMER SCIENTIST documented in this encounter Plan of Treatment Upcoming Encounters Date Type Department Care Team (Late st Contact Info) Description 08/21/2024 4:00 PM CDT Office Visit [facility] Medical Group Family Medicine - [place] [address] [place] [phone] Charla Camops PA-C [address] [place] [phone] documented as of this encounter Visit Diagnoses Diagnosis Chronic diarrhea- Primary Diarrhea Bloody diarrhea Diarrhea Generalized abdominal pain Abdominal pain, generalized documented in this encounter
--- OUTSIDE RECORDS SUMMARY | 2024-06-08 08:23 | XMS_ITS | Encounter Summary ---
Author Organization [facility] Address [facility] [place] [address] [place] [address] Care Team Providers Care Heel Coverer Machine Operator Name Role Phone Unavailable Primary Care Provider Unavailabl e Encounter Details Date Type Department Care Team (Late Contact Info) Description 06/28/2019 Scan [facility] [employer] [address] [place], [place] [phone] Scanned, Documents Social History Tobacco Use Types [...] Description 08/21/2024 4:00 PM CDT Office Visit [facility] Medical Group Family Medicine - [place] [address] [place] [phone] Charla Campos PA-C 100 [facility] [place] [address] documented as of this encounter Procedures Procedure Name Priority Date/Time Associated Diagnosis Comments COLONOSCOPY GENERIC (SCAN ORDER) Routine 06/28/2019 documented in this encounter Results * COLONOSCOPY (06/28/2019) us Documents Scanned SCANNING Final Result documented in this encounter Visit Diagnoses Not on filedocumented in this encounter
--- OUTSIDE RECORDS SUMMARY | 2024-06-08 08:23 | XMS_ITS | Encounter Summary ---
Author Organization [facility] Address [address] [place] [address]. [place] [address] [place] [address] Care Team Providers Care Paunch Trimmer Name Role Phone Unavailable Primary Care Provider Unavailabl e Reason for Visit * Reason Onset Date Comments Medication Request 05/08/2019 Encounter Details Date Type Department Care Team ([facility] st Contact Info) Description 05/08/2019 Telephone [facility] [address] [facility] [address] [place] [address] Karson Payne MD [address] [facility] [address] [place] [address] Medication Request Social History Tobacco [...] 1:54 PM CST Med update. Order in [employer]. IAL EFFECTS SPECIALIST * Sarah Mukherjee RN - 05/16/2019 1:54 PM CSTAddended by: SARAH MUKHERJEE on: 05/16/2019 01:54 PM Modules accepted: Orders IAL EFFECTS SPECIALIST * Edwin Caicedo MD - 05/16/2019 1:06 PM CST ok IAL EFFECTS SPECIALIST * Mora Valentin RN - 05/16/2019 12:29 [...] on meds pchy WM OF ncb - [phone] IAL EFFECTS SPECIALIST IAL EFFECTS SPECIALIST * Karson Payne MD - 05/08/2019 4:55 PM CST yes IAL EFFECTS SPECIALIST * Sakshi Ellsworth RN - 05/08/2019 4:46 PM CST Pt appt with Dr Frost is 06/21/18. Asking if you will fill her divalproex DR sprinkle 125mg caps bid? alfredo DOMINIQUEB if problem [phone] IAL EFFECTS SPECIALIST documented in this encounter Plan of Treatment Upcoming Encounters Date Type Department Care Team (Late st Contact Info) Description 08/21/2024 4:00 PM CDT Office Visit [facility] Medical Group Family Medicine - [place] [phone] Charla Campos PA-C [address] [place] [phone] documented as of this encounter Visit Diagnoses Diagnosis Seizure disorder ([facility]/HCC [facility]/HCC)- Primary Unspecified epilepsy without mention of intractable epilepsy documented in this encounter
--- OUTSIDE RECORDS SUMMARY | 2024-06-08 08:23 | XMS_ITS | Encounter Summary ---
Author Organization [facility] Address [facility]. [place], [place] [address] [place] [address] Care Team Providers Care Flame Cutting Supervisor Name Role Phone Unavailable Primary Care Provider Unavailabl e Reason for Referral * Consultation (Routine) - Closed Specialty Diagnoses / Procedures Referred By Yodit t Referred To Contact NEUROLOGY Diagnoses Seizure disorder ([facility]/HCC [facility]) Monik Fonseca MD [address] [facility] [address] [place] [address] Phone: tel: fax: Isa Frost MD [address] [place] [address] Phone: tel: fax: Referral ID Status Reason Start Date Expiration Date V isits Requested Visits Authorized [id number] Closed Specialty Services 05/06/2019 06/05/2020 1 1 MAPPER Reason for Visit * Reason Comments Establish Care NPPE Encounter Details Date Type Department Care Team (Late st Contact Info) Description 05/06/2019 4:15 PM TYPE MAPPER Office Visit [facility] [address] [facility] [address] [place] [address] Monik Fonseca MD [address] [facility] [address] [place] [address] Establish Care (NPPE) Social History [...] Comments Blood Pressure 126/78 05/06/2019 3:52 PM TYPE MAPPER Pulse 104 05/06/2019 3:52 PM TYPE MAPPER Temperature - - Respiratory Rate - - Oxygen Saturation - - Inhaled Oxygen Concentration - - Weight 133.8 kg (295 lb) 05/06/2019 3:52 PM TYPE MAPPER Height 179.1 cm (5' 10.5 ) 05/06/2019 3:52 PM CS T Body Mass Index 41.73 05/06/2019 3:52 PM TYPE MAPPER documented in this encounter Progress Notes * Kathi Ferrara RN - 05/06/2019 4:15 PM CSTAddended by: KATHI FERRARA on: 05/09/2019 09:04 AM Modules accepted: Orders MAPPER * Monik Fonseca MD - 05/06/2019 4:15 [...] file Gets together: Not on file Attends jewish service: Not on file Active member of [...] ref. provider found PCP: MONIK FONSECA MD MAPPER * Monik Fonscea MD - 05/06/2019 4:15 PM CST TSH was a little high. However, the free T3 and free T4 are normal. For now, observe. Repeat TSH in4 to 6 months. MAPPER documented in this encounter Plan of Treatment Upcoming Encounters Date Type Department Care Team (Late st Contact Info) Description 08/21/2024 4:00 PM CDT Office Visit [facility] Medical Group Family Medicine - [place] [address] Charla Campos PA-C [address] [place] [address] Scheduled Referrals Name Type Priority Associated Diagnoses Orde r Schedule Ambulatory referral to Neurology Referral Routine Seizure disorder ([facility]) Ordered: 05/06/2019 documented as of this encounter Procedures Procedure Name Priority Date/Time Associated Diagnosis Comments TEST AUTHORIZATION Routine 05/08/2019 1: 01 PM TYPE MAPPER TEST AUTHORIZATION Routine 05/08/2019 1: 01 PM TYPE MAPPER TEST AUTHORIZATION Routine 05/08/2019 1: 01 PM TYPE MAPPER FREE T3 Routine 05/07/2019 7:48 AM TYPE MAPPER documented in this encounter Results * TSH W/REFLEX (10/31/2019 3:50 PM CDT) TSH 1.380 0.358 - 3.74 uIU/ML 10/31/2019 4:39 PM CDT [facility] Comment: HIGH DOSES OF BIOTIN MAY INTERFERE WITH THIS TEST RESULT. CORRELATION TO CLINICAL HISTORY AND PRESENTATION RECOMMENDED. FREE T4 NOT INDICATED 10/31/2019 3:50 PM CDT us Monik Fonseca MD LABORATORY Final Resul t Performing Organization Address City/[facility]/ZIP Co de Phone Number [facility] [address] [place] [address], * TEST AUTHORIZATION (05/08/2019 1:01 PM TYPE MAPPER) NOTE THIS IS TO FOLLOW UP WITH YOUR VERBAL REQUEST FOR TESTING ON THIS PATIENT. [facility] Follow-up Testing Result [phone] [facility] ORDER CONFIRMATION CONFIRMATION OF VERBAL ORDER RECEIVED. THANK YOU! [facility] 05/08/2019 1:01 PM TYPE MAPPER 05/08/2019 1:01 PM TYPE MAPPER Narrative [facility] - 05/09/2019 1:26 PM TYPE MAPPER REPORT: [id number] us Monik Fonseca MD LABORATORY Final Resul t Performing Organization Address [facility] Co de Phone Number [facility] [address] [place] [address], * TEST AUTHORIZATION (05/08/2019 1:01 PM TYPE MAPPER) NOTE THIS IS TO FOLLOW UP WITH YOUR VERBAL REQUEST FOR TESTING ON THIS PATIENT. [facility] Follow-up Testing Result [phone] [facility] ORDER CONFIRMATION CONFIRMATION OF VERBAL ORDER RECEIVED. THANK YOU! [facility] 05/08/2019 1:01 PM TYPE MAPPER 05/08/2019 1:01 PM TYPE MAPPER Narrative [facility] - 05/09/2019 1:26 PM TYPE MAPPER REPORT: [id number] us Monik Fonseca MD LABORATORY Final Resul t Performing Organization Address City/[facility]/ZIP Co de Phone Number [facility] [address] [place] [address], * TEST AUTHORIZATION (05/08/2019 1:01 PM TYPE MAPPER) CONTACT INFORMATION: SABRA FROST PRIMARY DIAGNOSIS: E03.9 [facility] TEST INFO FREE T3, FREE T4 [facility] COMMENT YES [facility] COMMENT SEE RESULTS BELOW [facility] Comment: WE HAVE RECEIVED A REQUEST FOR TESTING FROM YOUR OFFICE. ??PLEASE SIGN AND RETURN THIS NOTIFICATION CONFIRMATION AND DOCUMENTATION. PLEASE RETURN FAX TO [facility] CLIENT SERVICES AT . IF YOU HAVE ANY QUESTIONS, PLEASE CALL US AT . SIGNATURE: TEST NAME: [id number], [id number] [facility] 05/08/2019 1:01 PM TYPE MAPPER 05/08/2019 1:01 PM TYPE MAPPER Narrative [facility] - 05/08/2019 1:02 PM TYPE MAPPER REPORT: [id number] us Monik Fonseca MD LABORATORY Final Resul t Performing Organization Address [facility] de Phone Number [facility] [address] [place] [address], * FREE T3 (05/07/2019 7:48 AM TYPE MAPPER) FREE T3 4.1 2.0 - 4.4 PG/ML [facility] 05/07/2019 7:48 AM TYPE MAPPER 05/08/2019 4:46 AM TYPE MAPPER Narrative [facility] - 05/08/2019 4:59 PM TYPE MAPPER REPORT: [id number] ADD [id number] us Monik Fonseca MD LABORATORY Final Resul t Performing Organization Address [facility]/ZIP Co de Phone Number [facility] [address] [place] [address], documented in this encounter Visit Diagnoses Diagnosis Seizure disorder (CMS/HCC [facility])- Primary Unspecified epilepsy without mention of intractable epilepsy Routine general medical examination at a health care facility Generalized abdominal pain Abdominal pain, generalized Irritable bowel syndrome with diarrhea Irritable bowel syndrome Fatigue, unspecified type documented in this encounter
--- OUTSIDE RECORDS SUMMARY | 2024-06-08 08:23 | XMS_ITS | Encounter Summary ---
Author Organization [facility] Address [address] [place] [address]. [place], [place] [address] [place] [address] Care Team Providers Care Medical Genetics Director Name Role Phone Unavailable Primary Care Provider Unavailabl e Reason for Visit * Reason Onset Date Comments Appointment Request 06/11/2019 Encounter Details Date Type Department Care Team (Late st Contact Info) Description 06/11/2019 Telephone [facility] Medical Group Multispecialty Care - [facility] [address] [facility], [address] [place] [address] Omar Johns MD 3 [facility] [address] [place] [address] Appointment Request Social History Tobacco Use Types [...] PM CST Spoke with patient appt scheduled. ER * Carla Arndt - 06/11/2019 1:56 PM CST Excessive pooping, blood, stomach pain like sudden urgency to defecate. Medication she was given isnot helping. Would like a nurse to call her and see if she can get an appt soon. She is also wakingup every few hours to defecate. ER documented in this encounter Plan of Treatment Upcoming Encounters Date Type Department Care Team (Late st Contact Info) Description 08/21/2024 4:00 PM CDT Office Visit [facility] Medical Group Family Medicine - [place] [address] [place] [phone] Charla Campos PA-C [address] [place] [phone] documented as of this encounter Visit Diagnoses Not on filedocumented in this encounter
--- OUTSIDE RECORDS SUMMARY | 2024-06-08 08:23 | XMS_ITS | Encounter Summary ---
Author Organization [facility] Address [address] [place] [address]. [place], [place] [address] [place] [address] Care Team Providers Care Customer Expert Name Role Phone Unavailable Primary Care Provider Unavailabl e Reason for Visit * Auth/Cert Specialty Diagnoses / Procedures Referred By Yodit kenney Referred To Contact Diagnoses R19.7, K92.1 Procedures COLONOSCOPY DIAGNOSTIC WITH/WITHOUT SPECIMEN BRUSH/WASH Referral ID Status Reason Start Date Expiration Date Visits Re quested Visits Authorized [id number] 1 1 Encounter Details Date Type Department Care Team (Late st Contact Info) Description 06/28/2019 11:03 AM STOCK CRANE OPERATOR Anesthesia Event [facility] [address] [place] [address] Dianna Major CRNA [address] [place] [address] Anesthesia Record Procedure Summary Procedure Name Responsible Anesthesiologist Anesthesia Start Time Anesthesia Stop Time COLONOSCOPY WITH BIOPSIES Dianna Major CRNA 06/28/19 1103 06/28/19 1129 Events Date Time Event Comment 06/28/2019 0956 AN BIOLOGICAL CHEMIST Prepped 0956 AN Anesthesia Prepped 1103 An [...] Humera Mcgee RN 06/28/19 121 by Gissel Moy RN documented in this encounter Social History [...] Postoperative Hydration: euvolemic Complications: no anesthesia complication K CRANE OPERATOR * Anesthesia Preprocedure Evaluation - Dianna Major [...] Omar Johns MD at 07/03/2019 10:39 AM STOCK CRANE OPERATOR K CRANE OPERATOR K CRANE OPERATOR Associated attestation - Omar Johns MD - 07/03/2019 10:39 AM STOCK CRANE OPERATOR I am certifying my agreement with the anesthesia plan of care and will be supervising the administration of anesthesia. documented in this encounter Plan of Treatment Upcoming Encounters Date Type Department Care Team (Late st Contact Info) Description 08/21/2024 4:00 PM CDT Office Visit [facility] Medical Group Family Medicine - [place] [address] [place] [phone] Charla Campos PA-C [address] [place] [address] documented as of this encounter Visit Diagnoses Not on filedocumented in this encounter Administered Medications Inactive Administered Medications - up to 3 most recent administrations Medication Order MAR Action Action Date Dose Rate Site lidocaine (PF) (XYLOCAINE) 1 % injection Intravenous, PRN, Starting on Mon06/28/19 at 1103, Until Mon06/28/19 at 1129, Anesthesia Intra-Op Given 06/28/2019 11:03 AM STOCK CRANE OPERATOR 50 mg midazolam (VERSED) injection Intravenous, PRN, Starting on Mon06/28/19 at 1104, Until Mon06/28/19 at 1129, Anesthesia Intra-Op Given 06/28/2019 11:04 AM STOCK CRANE OPERATOR 2 mg propofol (DIPRIVAN) IV bolus Intravenous, PRN, Starting on Mon06/28/19 at 1105, Until Mon06/28/19 at 1129, Anesthesia Intra-Op Given 06/28/2019 11:24 AM STOCK CRANE OPERATOR 50 mg Given 06/28/2019 11:21 AM STOCK CRANE OPERATOR 50 mg Given 06/28/2019 11:18 AM STOCK CRANE OPERATOR 50 mg documented in this encounter
--- OUTSIDE RECORDS SUMMARY | 2024-06-08 08:23 | XMS_ITS | Encounter Summary ---
Author Organization [facility] Address [address] [place] [address]. [place], [place] [address] [place] [address] Care Team Providers Care Progress Clerk Name Role Phone Unavailable Primary Care Provider Unavailabl e Reason for Visit * Reason Onset Date Comments Follow Up Call 06/18/2019 stomach hurting all the time and medication not working pt stated Encounter Details Date Type Department Care Team (Late st Contact Info) Description 06/18/2019 Telephone [facility] Medical Group Multispecialty Care - [facility] 3 [facility], [address] [place] [address] Omar Johns MD 3 [facility] [address] [place] [address] Follow Up Call (stomach hurting all the [...] on: 06/18/2019 02:10 PM Modules accepted: Orders SCIENCES MANAGER * Sbele Ratliff NP - 06/18/2019 1:50 PM CST [...] She notes she works until 2200 today. SCIENCES MANAGER * Alee Hein - 06/18/2019 12:46 PM CST Pt called saying that her problems have gotten worse. She stated that she has to go to the bathroome[place] 20 minutes and her stomach has been hurting all the time. She said the medication that we have given her does not work. She asked to please give her a call. SCIENCES MANAGER documented in this encounter Plan of Treatment Upcoming Encounters Date Type Department Care Team (Late st Contact Info) Description 08/21/2024 4:00 PM CDT Office Visit [facility] Medical Group Family Medicine - [place] [address] [place] [phone] Charla Campos PA-C [address] [place] [address] [place] [address] documented as of this encounter Results * O&P CONC&SMEAR TO REF LAB (06/19/2019 10:07 AM LIFE SCIENCES MANAGER) SPECIMEN SOURCE STOOL 0 10:08 AM LIFE SCIENCES MANAGER [facility] O & P EXAMINATION (STOOL) REPORT 06/26/2019 7:53 PM LIFE SCIENCES MANAGER [facility] [facility] Comment: Ova and Parasites, Concentrate and Permanent Smear Examination for Ova and Parasites SOURCE : STOOL Result/Comment: NO OVA AND PARASITES SEEN. Reference Range: ??No Ova and Parasites seen Routine Ova and Parasite Exam may not detect some parasites that occasionally cause diarrheal illness. Test code(s) 64855W[74772](Cryptosporidium Ag, DFA) and/or 38605Q[64508] (Cyclospora and Isospora Exam) may be ordered to detect these parasites. One negative sample does not necessarily rule out the presence of a parasitic infection. Assay performed by wet mount after concentration. Parasite Exam, Trichrome Stain SOURCE : STOOL Result/Comment: NO OVA AND PARASITES SEEN. Routine Ova and Parasite Exam may not detect some parasites that occasionally cause diarrheal illness. Test code(s) 65350W[34417](Cryptosporidium Ag, DFA) and/or 95646N[04750] (Cyclospora and Isospora Exam) may be ordered to detect these parasites. One negative sample does not necessarily rule out the presence of a parasitic infection. For additional information, please refer to https://education.Calendargod.RadioFrame/faq/UFQ848 (This link is being provided for informational/ educational purposes only.) Test Performed by [employer], [facility], [address] [place] [address] José Antonio Mart M.D., Ph.D., Director of Laboratories , CLIA [id number] STOOL SPECIMEN / Unknown 06/19/2019 10:07 AM LIFE SCIENCES MANAGER Seble Ratliff NP MICROBIOLOGY - GENERAL ORDERABLE S Final Result [facility] [address] [place] [address], [place] [phone] [facility] [address] [place] [address], [place] [phone] * CLOSTRIDIUM DIFFICILE (06/19/2019 10:07 AM LIFE SCIENCES MANAGER) MOLECULAR ASSAY NEGATIVE NEGATIVE 06/19/2019 12:08 PM LIFE SCIENCES MANAGER [facility] Comment: NOTE: C. difficile molecular [...] STOOL SPECIMEN / Unknown 06/19/2019 10:07 AM LIFE SCIENCES MANAGER Seble Ratliff TABLEAU ADMINISTRATOR BODY FLUIDS AND STOOLS ORDERABLE S Final Result [facility] [address] [place] [address], [place] [phone] * GIARDIA AG, STOOL (06/19/2019 10:07 AM LIFE SCIENCES MANAGER) GIARDIA ANTIGEN (STOOL) NEGATIVE NEGATIVE 06/19/2019 11:42 AM LIFE SCIENCES MANAGER [facility] STOOL SPECIMEN / Unknown 06/19/2019 10:07 AM LIFE SCIENCES MANAGER Seble Ratliff TABLEAU ADMINISTRATOR BODY FLUIDS AND STOOLS ORDERABLE S Final Result [facility] [address] [place] [address], [place] [phone] * CRYPTOSPORIDUM AG, STOOL (06/19/2019 10:07 AM LIFE SCIENCES MANAGER) CRYPTOSPOR AG (STOOL) NEGATIVE NEGATIVE 06/19/2019 11:42 AM LIFE SCIENCES MANAGER [facility] STOOL SPECIMEN / Unknown 06/19/2019 10:07 AM LIFE SCIENCES MANAGER us Seble Ratliff TABLEAU ADMINISTRATOR BODY FLUIDS AND STOOLS ORDERABLE S Final Result Performing Organization Address [facility]/ZIP Co de Phone Number [facility] [address] [place] [address], [place] [phone] * Stool Culture (06/19/2019 10:07 AM LIFE SCIENCES MANAGER) SPEC DESCRIPTION STOOL 06/19/2019 10:08 AM [facility] SPECIAL REQUESTS NO SPECIAL REQUEST 06/19/2019 10:08 AM [facility] CULTURE RESULT NEGATIVE FOR SHIGA TOXIN 1 AND 2 06/22/2019 7:31 AM [facility] CULTURE RESULT NO ENTERIC PATHOGENS ISOLATED 06/22/2019 7:31 AM [facility] CULTURE RESULT NOTE: STOOL CULTURES ARE ROUTINELY SCREENED FOR SALMONELLA,SH IGELLA,YERSIN [place],AEROMONAS, PLESIOMONAS,C AMPYLOBA CTER,E.COLI 0157,OVERGROW THS OF S.AUREUS,YEAS T AND P. AERUGINOSA 06/22/2019 7:31 AM [facility] Stool specimen (specimen) STOOL SPECIMEN / Unknown 06/19/2019 10:07 AM LIFE SCIENCES MANAGER 06/19/2019 10:14 AM LIFE SCIENCES MANAGER us Seble Ratliff NP MICROBIOLOGY - GENERAL ORDERABLE S Final Result Performing Organization Address City/[facility]/ZIP Co de Phone Number [facility] [address] [place] [address], * (ABNORMAL) STOOL FOR WBC (06/19/2019 10:07 AM LIFE SCIENCES MANAGER) STOOL WBC LACTOFERRIN POSITIVE( A) NEGATIVE 06/19/2019 11:42 AM LIFE SCIENCES MANAGER [facility] STOOL SPECIMEN / Unknown 06/19/2019 10:07 AM LIFE SCIENCES MANAGER Seble Ratliff NP BODY FLUIDS AND STOOLS ORDERABLE S Final Result [facility] [address] [place] [address], documented in this encounter Visit Diagnoses Diagnosis Chronic diarrhea- Primary Diarrhea documented in this encounter
--- OUTSIDE RECORDS SUMMARY | 2024-06-08 08:23 | XMS_ITS | Encounter Summary ---
Author Organization [facility] Address [address] [place] [address]. [place] [address] [place] [address] Care Team Providers Care Chief Crew Scheduler Name Role Phone Unavailable Primary Care Provider Unavailabl e Reason for Visit * Reason Onset Date Comments Pain 07/08/2019 Encounter Details Date Type Department Care Team (Late st Contact Info) Description 07/08/2019 Telephone [facility] Medical Group Multispecialty Care - [facility] 3 [facility], [address] [place] [address] Seble Ratliff NP 3 [facility]. [address] [place], [place] [phone] Pain Social History Tobacco Use Types Packs/Day [...] on: 07/08/2019 01:12 PM Modules accepted: Orders LEY COACH DRIVER * Seble Ratliff NP - 07/08/2019 1:06 PM CST I spoke with Dr. Johns and informed of pt concerns. Notes ok to decrease prednisone to 30 mg daily for next 3 weeks. Called and informed pt of this and to call if any worsening of symptoms. Pt v/u of this. LEY COACH DRIVER * Seble Ratliff NP - 07/08/2019 11:41 [...] with Dr. Johns and call her back. LEY COACH DRIVER * Kaitlynn Healy - 07/08/2019 8:29 AM [...] and muscle aches. Please call patient regarding. 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
--- OUTSIDE RECORDS SUMMARY | 2024-06-08 08:23 | XMS_ITS | Encounter Summary ---
Author Organization [facility] Address [facility] [place] [address] [place] [address] Care Team Providers Care Reclamation Worker Name Role Phone Unavailable Primary Care [...] [facility] Medical Group Family Medicine - [place] [address] [place] [address] Charla Campos PA-C 100 [place] [address] documented as of this encounter Visit Diagnoses Not on filedocumented in this encounter
--- OUTSIDE RECORDS SUMMARY | 2024-06-08 08:25 | XMS_ITS | Encounter Summary ---
Author Organization [facility] Address [address] [place] [address]. [place], [place] [address] [place] [address] Care Team Providers Care Art Librarian Name Role Phone None, Provider MD Primary Care Provider Unavaila ble Reason for Visit * Reason Onset Date Comments ER F/U 12/17/2018 Encounter Details Date Type Department Care Team (Late st Contact Info) Description 12/17/2018 Telephone [facility] Medical [facility] Multispecialty Care - [address], [address] [place] [address] Omar Johns MD 3 [facility] [address] [place] [address] ER F/U Social History Tobacco Use Types [...] 12/17/2018 8:24 AM CDT Pt went to [facility] this weekend due to diarrhea/ stomach aches. Been going on for months. They ran tests on her and told her to F/U with Dr. Johns. High white blood count per ER, inflammatory colitis. Did CT scan. PCP None Ins [facility] [phone] documented in this encounter Plan of Treatment Upcoming Encounters Date Type Department Care Team (Late st Contact Info) Description 08/21/2024 4:00 PM CDT Office Visit [facility] Medical Group Family Medicine - [place] [phone] Charla Campos PA-C [address] [place] [phone] documented as of this encounter Visit Diagnoses Not on filedocumented in this encounter Care Teams Art Librarian Relationship Specialty Start Date End Date None, Provider, PCP - General 12/15/18 04/08/19 documented as of this encounter
--- OUTSIDE RECORDS SUMMARY | 2024-06-08 08:25 | XMS_ITS | Encounter Summary ---
Author Organization [facility] Address [address] [place] [address]. [place], [place] [id number] [place] [address] Care Team Providers Care Solid Waste Technician Name Role Phone None, Provider Primary Care Provider Unavaila ble Reason for Referral * Imaging (Emergency) - Closed Specialty Diagnoses / Procedures Referred By Yodit kenney Referred To Contact RADIOLOGY Procedures CT ABD+PEL W IV CON ONLY Fanny Caal NP Referral ID Status Reason Start Date Expiration Date Visits Re quested Visits Authorized [id number] Closed 12/15/2018 01/16/2020 1 1 Reason for Visit * Reason Comments Nausea Diarrhea Encounter Details Date Type Department Care Team (Late st Contact Info) Description 12/15/2018 2:14 PM CDT - 12/15/2018 6:50 PM CDT Emergency [facility] [place] [address] Andrés Collins MD [address] [place] [address] Nausea; Diarrhea Discharge Disposition: Home or Self [...] find a primary care doctor and a hoop maker to discuss your ongoing symptoms. There is no specific treatment at this point in time. You can try the Bentyl that has been prescribed. * Attachments The following attachments cannot be sent through Care Everywhere. * Acute Abdomen (Belly Pain) (Dutch) * Colitis Discharge Instructions (Dutch) documented in this encounter Medications at Time [...] CLEAN CATCH COLOR YELLOW TRANSPARENCY CLEAR Specific [place] (U) 1.029 1.001 - 1.030 U PH [...] IV CON ONLY Final Result by User, [id number] (12/16 1815) EXAMINATION: CT ABDOMEN AND PELVIS [...] primary care doctor as well as a hoop maker. Clinical Impression Abdominal pain (Primary) Disposition: Discharge Andrés Collins MD 12/16/182054 * Fanny Caal NP - 12/15/2018 2:49 PM CDT [place], [place] EMERGENCY DEPARTMENT ENCOUNTER Medical Screening Examination [...] [facility] Family Medicine - [place] [address] [place] [phone] Charla Campos PA-C [address] [place] [address] documented as of this encounter Procedures Procedure [...] Oliver MD, 12/15/2018 6:07 PM Fanny Caal PRINTED CIRCUIT BOARD ASSEMBLER CT Final Resu lt * (ABNORMAL) URINALYSIS (12/15/2018 3:02 PM CDT) SPECIMEN TYPE URINE CLEAN CATCH 12/15/2018 2:56 PM CDT [facility] COLOR (U) YELLOW 12/15/2018 3:33 PM CDT [facility] TRANSPARENCY CLEAR 12/15/2018 3:33 PM CDT [facility] SPECIFIC GRAVITY (U) 1.029 1.001 - 1.030 12/15/2018 3:33 PM CDT [facility] U PH 5.0 5.0 - 9.0 12/15/2018 3:33 PM CDT [facility] LEUKOCYTES (U) NEGATIVE NEGATIVE 12/15/2018 3:33 PM CDT [facility] NITRITES NEGATIVE NEGATIVE 12/15/2018 3:33 PM CDT [facility] PROTEIN (U) NEGATIVE <30 MG/DL 12/15/2018 3:33 PM CDT [facility] URINE GLUCOSE NEGATIVE NEGATIVE MG/DL 12/15/2018 3:33 PM CDT [facility] KETONES MG/DL (U) TRACE(A) NEGATIVE MG/DL 12/15/2018 3:33 PM CDT [facility] UROBILINOGEN NEGATIVE NEGATIVE MG/DL 12/15/2018 3:33 PM CDT [facility] BILIRUBIN (U) NEGATIVE NEGATIVE MG/DL 12/15/2018 3:33 PM CDT [facility] BLOOD (U) SMALL(A) NEGATIVE 12/15/2018 3:33 PM CDT [facility] CULTURE & SENSITIVITY INDICATED? CULTURE IS NOT INDICATED 12/15/2018 3:33 PM CDT [facility] SQUAMOUS EPITHELIALS FEW /LPF 12/15/2018 3:33 PM CDT [facility] MUCUS RARE /LPF 12/15/2018 3:33 PM CDT [facility] WBC/HPF <1 <6 /HPF 12/15/2018 3:33 PM CDT [facility] RBC/HPF 2 <6 /HPF 12/15/2018 3:33 PM CDT [facility] URINE SPECIMEN OBTAINED BY CLEAN CATCH PROCEDURE / Unknown 12/15/2018 3:02 PM CDT us Fanny Caal PRINTED CIRCUIT BOARD ASSEMBLER URINE ORDERABLES Final Res ult [facility] [address] [place] [address], [place] [phone] * (ABNORMAL) COMPREHENSIVE METABOLIC PANEL (12/15/2018 3:02 PM CDT) [facility] GLUCOSE 86 70 - 99 MG/DL 12/15/2018 3:42 PM CDT [facility] BUN 11 7 - 18 MG/DL 12/15/2018 3:42 PM CDT [facility] CREATININE S/P/B 0.80 0.55 - 1.02 MG/DL 12/15/2018 3:42 PM CDT [facility] SODIUM S/P/B 139 136 - 145 MMOL/L 12/15/2018 3:42 PM CDT [facility] POTASSIUM S/P/B 3.4(L) 3.5 - 5.1 MMOL/L 12/15/2018 3:42 PM CDT [facility] CHLORIDE S/P/B 108 100 - 108 MMOL/L 12/15/2018 3:42 PM CDT [facility] CO2 22.1 21 - 32 MMOL/L 12/15/2018 3:42 PM CDT [facility] CALCIUM S/P/B 9.5 8.5 - 10.1 MG/DL 12/15/2018 3:42 PM CDT [facility] BILIRUBIN TOTAL S/P/B 0.2 0.2 - 1.2 MG/DL 12/15/2018 3:42 PM CDT [facility] TOTAL PROTEIN S/P/B 7.9 6.4 - 8.2 G/DL 12/15/2018 3:42 PM CDT [facility] ALBUMIN S/P/B 3.4 3.4 - 5.0 G/DL 12/15/2018 3:42 PM CDT [facility] AST 10(L) 15 - 37 U/L 12/15/2018 3:42 PM CDT [facility] ALT 11(L) 14 - 55 U/L 12/15/2018 3:42 PM CDT [facility] ALKALINE PHOSPHATASE S/P/B 63 50 - 136 U/L 12/15/2018 3:42 PM CDT [facility] ANION GAP 8.9 5 - 15 MMOL/L 12/15/2018 3:42 PM CDT [facility] BUN CREATININE RATIO 13.8 6 - 26 12/15/2018 3:42 PM CDT [facility] A/G RATIO 0.8(L) 1.0 - 2.0 RATIO 12/15/2018 3:42 PM CDT [facility] EGFR NON-AFR. AMER. >90 >90 ML/MIN/1.7 3 M2 12/15/2018 3:42 PM CDT [facility] EGFR AFR. AMER. >90 >90 ML/MIN/1.7 3 M2 12/15/2018 3:42 PM CDT [facility] Comment: NOTE: eGFR is not calculated for patients <18 years of age. This is an estimated GFR (CKD EPI) and should not be used for calculating drug doses. 12/15/2018 3:02 PM CDT us Fanny Caal NP LABORATORY Final Resu lt [facility] [address] [place] [address], [place] [phone] * (ABNORMAL) CBC W/DIFF AUTOMATED (12/15/2018 3:02 PM CDT) WBC 16.0(H) 4.5 - 11.0 x10'3/uL 12/15/2018 3:24 PM CDT [facility] RBC 5.05 4.20 - 5.40 x10'6/uL 12/15/2018 3:24 PM CDT [facility] HGB 14.6 12.0 - 16.0 G/DL 12/15/2018 3:24 PM CDT [facility] HCT 44.8 38.0 - 48.0 % 12/15/2018 3:24 PM CDT [facility] MCV 88.7 80.0 - 94.0 FL 12/15/2018 3:24 PM CDT [facility] MCH 28.9 27.0 - 31.0 PG 12/15/2018 3:24 PM CDT [facility] MCHC 32.6 32.0 - 36.0 G/DL 12/15/2018 3:24 PM CDT [facility] RDW 12.6 11.5 - 14.5 % 12/15/2018 3:24 PM CDT [facility] PLT 280 130 - 400 x10'3/uL 12/15/2018 3:24 PM CDT [facility] MPV 9.6 9.3 - 12.2 FL 12/15/2018 3:24 PM CDT [facility] DIFFERENTIAL TYPE AUTOMATED DIFFERENTIAL 12/15/2018 4:12 PM CDT [facility] NEUTROPHILS % 64.2 % 12/15/2018 4:12 PM CDT [facility] LYMPHOCYTES % 22.0 % 12/15/2018 4:12 PM CDT [facility] MONOCYTES % 10.4 % 12/15/2018 4:12 PM CDT [facility] EOSINOPHILS 1.9 % 12/15/2018 4:12 PM CDT [facility] BASOPHILS 0.6 % 12/15/2018 4:12 PM CDT [facility] IMMATURE GRANS % 0.9 % 12/16/19 4:12 PM CDT [facility] ABS. NEUTROPHILS TOTAL 10.30(H) 1.80 - 7.70 x10'3/uL 12/15/2018 4:12 PM CDT [facility] ABS. LYMPHOCYTES 3.52 1.00 - 4.80 x10'3/uL 12/15/2018 4:12 PM CDT [facility] ABS. MONOCYTES 1.66(H) 0.24 - 0.86 x10'3/uL 12/15/2018 4:12 PM CDT [facility] ABS. EOSINOPHILS 0.31 0.04 - 0.36 x10'3/uL 12/15/2018 4:12 PM CDT [facility] ABS. BASOPHILS 0.09(H) 0.01 - 0.08 x10'3/uL 12/15/2018 4:12 PM CDT [facility] ABS. IMMATURE GRANULOCYTES 0.14 0.00 - 0.49 x10'3/uL 12/15/2018 4:12 PM CDT [facility] RBC MORPHOLOGY RBC MORPHOLOGY APPEARS NORMAL. SLIDE REVIEWED. 12/15/2018 4:12 PM CDT [facility] PLT EST. ADEQUATE 12/15/2018 4:12 PM CDT [facility] 12/15/2018 3:02 PM CDT Fanny Caal NP LABORATORY Final Resu lt [facility] [address] [place] [address], documented in this encounter Visit Diagnoses Diagnosis [...] RTR) documented in this encounter Care Teams Solid Waste Technician Relationship Specialty Start Date End Date None, Provider, PCP - General 12/15/18 04/08/19 documented as of this encounter
--- OUTSIDE RECORDS SUMMARY | 2024-06-08 08:31 | XMS_ITS | Referral Summary ---
Author Organization [facility] Address [address] [facility] [address] Care Team Providers Care Visual And Stock Associate Name Role Phone Karson Payne MD Primary Care Provider +1- [phone] Encounters Date Type Department Care Team Description 03/19/2024 3:20 PM CDT Office Visit [facility] Infectious Diseases [address] [place] [address] Amanda Barahona MD Cutaneous Mycobacterium marinum [...] CDT Gender Identity Female 04/07/2023 6:04 PM MAMMAL KEEPER Sexual Orientation Straight 04/07/2023 6: 04 PM MAMMAL KEEPER Last Filed Vital Signs Vital Sign Reading [...] Plan of Treatment Not on file Insurance JONES [place]ub [place] [employer] PLUS [employer] PLUS Advance Directives For more information, please contact: [phone] * Full Code (Latest Code Status on File) Date Activated Date Inactivated Comments 04/07/2023 1:51 AM 04/07/2023 10:03 PM Care Teams Visual And Stock Associate Relationship Specialty Start Date End Date Karson Payne MD PCP - General Family Medicine 04/07/23
--- OUTSIDE RECORDS SUMMARY | 2024-06-08 08:31 | XMS_ITS | Clinical Summary ---
Author Organization [facility] Address [address] [place] [address] Care Team Providers Care Supervisor Stock [place] Name Role Phone Karson Payne MD Primary Care Provider +1- [phone] Allergies No known active allergies Medications norgestimate-eth [...] Description 03/19/2024 3:20 PM CDT Office Visit [facility] Infectious Diseases [address] [place] [address] Amanda Barahona MD Cutaneous Mycobacterium marinum [...] CDT Gender Identity Female 04/07/2023 6:04 PM MAGAZINE HAND Sexual Orientation Straight 04/07/2023 6: 04 PM MAGAZINE HAND Obstetrics History Last Filed Vital Signs Vital [...] 02/17/2022 Influenza Vaccine (#1) 2024 02/17/2022 Insurance REPLACED BY [facility] PL[facility] PL[facility] Advance Directives For more information, please contact: [phone] * Full Code (Latest Code Status on File) Date Activated Date Inactivated Comments 04/07/2023 1:51 AM 04/07/2023 10:03 PM Care Teams Supervisor Stock [place] Relationship Specialty Start Date End Date Karson Payne MD PCP - General Family Medicine 04/07/23
--- OUTSIDE RECORDS SUMMARY | 2024-06-08 08:31 | XMS_ITS | Encounter Summary ---
Author Organization [facility] Address [address] [place] [address] Phone Care Team Providers Care Assistant Reading Teacher Name Role Phone Karson Payne MD Primary Care Provider +1- [phone] Reason for Visit * Reason Comments Follow-up Encounter Details Date Type Department Care Team (Latest Contact Info) Description 03/19/2024 3:20 PM CDT Office Visit [facility] Infectious Diseases [address] [place] [address] [address] [place] [address] Amanda Barahona MD [address] [place], [place] [phone] Cutaneous Mycobacterium marinum infection (Primary Dx); Immunocompromised [...] CDT Gender Identity Female 04/07/2023 6:04 PM RESIDENTIAL ASSISTANT Sexual Orientation Straight 04/07/2023 6: 04 PM RESIDENTIAL ASSISTANT documented as of this encounter Last Filed [...] started after falling on rocks/coral in [place]. Lesions have progressed into raised, scaly lesions [...] GI doctor - Omar Johns office at [facility] - jan Live 12/12/23: - continued [...] only Mycobacterium marinum Susceptibility performed by the [facility], [address] [place] [address], [place], [place] [address] * * * * * * * [...] to and read back by: Duglas Solis [phone] on 04/27/2023 13:24:38 by: Trent Cabrera MLS [...] Virologic Testing: HIV Screen:No results found for: [id number] CD4:No results found for: CD4ABS , CD4PCT Common Virologic Results: No results found for: XGU9XCF , CD4ABS , CD4PCT , NUCLEOSRT , [...] deficiency documented in this encounter Care Teams Assistant Reading Teacher Relationship Specialty Start Date End Date Karson Payne MD PCP - General Family Medicine 04/07/23 documented as of this encounter
--- OUTSIDE RECORDS SUMMARY | 2024-06-08 08:31 | XMS_ITS | Encounter Summary ---
Author Organization [facility] Healthcare Address [address] [place] [address] Care Team Providers Care Typewriter Repairer Name Role Phone Karson Payne MD Primary Care Provider +1- [phone] Encounter Details Date Type Department Care Team (Latest Contact Info) Description 09/12/2023 4:03 PM CDT - 09/12/2023 11:59 PM CDT Hospital Encounter [address] [address] Discharge Disposition: Discharge to home or self [...] CDT Gender Identity Female 04/07/2023 6:04 PM COMPUTER SYSTEMS CONSULTANT Sexual Orientation Straight 04/07/2023 6: 04 PM COMPUTER SYSTEMS CONSULTANT documented as of this encounter Medications at [...] on filedocumented in this encounter Care Teams Typewriter Repairer Relationship Specialty Start Date End Date Karson Payne MD PCP - General Family Medicine 04/07/23 documented as of this encounter
--- OUTSIDE RECORDS SUMMARY | 2024-06-08 08:31 | XMS_ITS | Encounter Summary ---
Author Organization [facility] Address [address] [place] [address] Phone Care Team Providers Care Project Administrator Name Role Phone Karson Payne MD Primary Care Provider +1- [phone] Encounter Details Date Type Department Care Team (Late st Contact Info) Description 12/25/2023 Orders Only [facility] Infectious Diseases [address] [place] [address] [address] [place] [address] Amanda Barahona MD [address] [place] [address] Cutaneous Mycobacterium marinum infection (Primary Dx); Encounter [...] CDT Gender Identity Female 04/07/2023 6:04 PM ICING MAKER Sexual Orientation Straight 04/07/2023 6: 04 PM ICING MAKER documented as of this encounter Plan of [...] AM CDT Performed at: ??01 - [facility] [address] ??[id number] Teachers Assistant: Chandu Cruz PhD, Phone: ??[phone] Amanda Barahona MD LAB BLOOD ORDERABLES nal Result [facility] documented in this encounter Visit Diagnoses Diagnosis 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
--- OUTSIDE RECORDS SUMMARY | 2024-06-08 08:31 | XMS_ITS | Encounter Summary ---
Author Organization [facility] Healthcare Address [address] [place] [address] Care Team Providers Care Data Conversion Developer Name Role Phone Karson Payne MD Primary Care Provider +1- [phone] Encounter Details Date Type Department Care Team (Latest Contact Info) Description 12/12/2023 4:13 PM CDT - 12/12/2023 11:59 PM CDT Hospital Encounter [address] [address] Discharge Disposition: Discharge to home or self [...] CDT Gender Identity Female 04/07/2023 6:04 PM VARNISHING UNIT OPERATOR Sexual Orientation Straight 04/07/2023 6: 04 PM VARNISHING UNIT OPERATOR documented as of this encounter Medications at [...] on filedocumented in this encounter Care Teams Data Conversion Developer Relationship Specialty Start Date End Date Karson Payne MD PCP - General Family Medicine 04/07/23 documented as of this encounter
--- OUTSIDE RECORDS SUMMARY | 2024-06-08 08:31 | XMS_ITS | Encounter Summary ---
Author Organization [facility] Address [address] [place] [address] Phone Care Team Providers Care Building Economist Name Role Phone Karson Payne MD Primary Care Provider +1- [phone] Reason for Referral * Cardiology (Routine) - Authorized Specialty Diagnoses / Procedures Referred By Contac t Referred To Contact Diagnoses 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 Procedures ECG 12 lead Amanda Barahona MD [address] [place] [address] Phone: tel: fax: [facility] (All Locations) Referral ID Status Reason Start Date Expiration Date V isits Requested Visits Authorized [id number] Authorized 12/13/2023 01/11/2025 1 1 Encounter Details Date Type Department Care Team (Latest Contact Info) Description 12/12/2023 3:20 PM CDT Office Visit [facility] Infectious Diseases [address] [place] [address] [address] [place] [id number] Amanda Barahona MD [address] [place] [address] Cutaneous Mycobacterium marinum infection (Primary Dx); Encounter [...] CDT Gender Identity Female 04/07/2023 6:04 PM CLINICAL COUNSELOR Sexual Orientation Straight 04/07/2023 6: 04 PM CLINICAL COUNSELOR documented as of this encounter Last Filed [...] started after falling on rocks/coral in [place]. Lesions have progressed into raised, scaly lesions [...] GI doctor - Omar Johns office at [facility] - jan Live 12/12/23: - continued improvement [...] only Mycobacterium marinum Susceptibility performed by the [facility], [address] [place] [address], [place], [place] [address] * * * * * * * [...] to and read back by: Duglas Solis [phone] on 04/27/2023 13:24:38 by: Trent Cabrera MLS [...] Virologic Testing: HIV Screen:No results found for: [id number] CD4:No results found for: CD4ABS , CD4PCT Common Virologic Results: No results found for: [id number] , CD4ABS , CD4PCT , NUCLEOSRT , [...] MD LAB BLOOD ORDERABLES Fi nal Result [facility] Department [place] [address] * (ABNORMAL) Differential, auto (12/12/2023 4:13 PM CDT) Neutrophil abs 4.5 1.5 - 6.5 K/cumm Imm gran abs 0.0 0.0 - 0.1 K/cumm [facility] Lymphocyte abs 2.2 0.8 - 3.3 K/cumm [facility] Monocyte abs 1.1(H) 0.2 - 0.8 K/cumm [facility] Eosinophil abs 0.1 0.0 - 0.5 K/cumm [facility] Basophil abs 0.1 0.0 - 0.1 K/cumm [facility] Neutrophil pct 56.0 % [facility] Comment: Interpretive Data Percent cell count reference ranges are not reported, since discordance with absolute values may lead to misinterpretation of CBC data. Current Interpretive Data was last revised on 2017. Imm gran pct 0.4 % [facility] Comment: Interpretive Data Percent cell count reference ranges are not reported, since discordance with absolute values may lead to misinterpretation of CBC data. Current Interpretive Data was last revised on 2017. Lymphocyte pct 27.8 % [facility] Comment: Interpretive Data Percent cell count reference ranges are not reported, since discordance with absolute values may lead to misinterpretation of CBC data. Current Interpretive Data was last revised on 2017. Monocyte pct 13.4 % [facility] Comment: Interpretive Data Percent cell count reference ranges are not reported, since discordance with absolute values may lead to misinterpretation of CBC data. Current Interpretive Data was last revised on 2017. Eosinophil pct 1.7 % [facility] Comment: Interpretive Data Percent cell count reference ranges are not reported, since discordance with absolute values may lead to misinterpretation of CBC data. Current Interpretive Data was last revised on 2017. Basophil pct 0.7 % [facility] Comment: Interpretive Data Percent cell count reference ranges are not reported, since discordance with absolute values may lead to misinterpretation of CBC data. Current Interpretive Data was last revised on 2017. Blood 12/12/2023 4:13 PM CDT 12/12/2023 7:03 PM CDT Amanda Barahona MD LAB BLOOD ORDERABLES nal Result [facility] Department [place] [address] * Comprehensive metabolic panel (12/12/2023 4:13 PM CDT) Sodium 138 135 - 145 mmol/L Potassium, pl 3.3 3.3 - 4.9 mmol/L [facility] Chloride 101 97 - 110 mmol/L [facility] CO2 25 22 - 32 mmol/L [facility] Anion gap 12 2 - 15 mmol/L [facility] BUN 14 6 - 25 mg/dL [facility] Creatinine 1.08 0.60 - 1.10 mg/dL [facility] Glucose 72 70 - 199 mg/dL [facility] Comment: Interpretive Data Fasting glucose >/= 126 [...] 2022. Calcium 9.4 8.5 - 10.3 mg/dL [facility] Bilirubin, total 0.5 0.1 - 1.2 mg/dL [facility] Protein, pl 7.7 6.5 - 8.5 g/dL [facility] Albumin 4.3 3.5 - 5.0 g/dL [facility] Alk phos 64 40 - 130 Units/L [facility] ALT 10 7 - 45 Units/L [facility] AST 22 10 - 45 Units/L [facility] Blood 12/12/2023 4:13 PM CDT 12/12/2023 7:03 PM CDT Amanda Barahona MD LAB BLOOD ORDERABLES [facility] Result [facility] Department [place] [address] * CBC with auto differential (12/12/2023 4:13 PM CDT) WBC 8.1 3.8 - 9.9 K/cumm Hgb 13.8 11.9 - 15.5 g/dL [facility] Hct 41.7 35.6 - 45.5 % [facility] Plt 317 150 - 400 K/cumm [facility] MPV 10.4 9.1 - 12.3 fL [facility] RBC 4.65 3.90 - 5.20 M/cumm [facility] MCV 89.7 81.3 - 96.4 fL [facility] MCH 29.7 27.1 - 33.3 pg [facility] MCHC 33.1 32.3 - 35.7 g/dL [facility] RDW CV 13.0 11.1 - 14.9 % [facility] RDW SD 42.7 35.7 - 48.1 fL [facility] NRBC abs 0.00 0.00 - 0.01 K/cumm [facility] Blood 12/12/2023 4:13 PM CDT 12/12/2023 7:03 PM CDT Amanda Barahona MD LAB BLOOD ORDERABLES Fi nal Result [facility] Department [place] [address] documented in this encounter Visit Diagnoses Diagnosis [...] 12/12/2023 documented in this encounter Care Teams Building Economist Relationship Specialty Start Date End Date Karson Payne MD PCP - General Family Medicine 04/07/23 documented as of this encounter
--- OUTSIDE RECORDS SUMMARY | 2024-06-08 08:32 | XMS_ITS | Encounter Summary ---
Author Organization [facility] Address [address] [place] [address] Phone Care Team Providers Care Client Integration Manager Name Role Phone Karson Payne MD Primary Care Provider +1- [phone] Encounter Details Date Type Department Care Team (Late st Contact Info) Description 05/16/2023 Telephone [facility] Infectious Diseases [address] [place] [address] Jesenia Ott, [facility] Social History Tobacco Use Types Packs/Day [...] CDT Gender Identity Female 04/07/2023 6:04 PM DIESEL SERVICE JOURNEYMAN Sexual Orientation Straight 04/07/2023 6: 04 PM DIESEL SERVICE JOURNEYMAN documented as of this encounter Ordered Prescriptions [...] on: 05/26/2023 12:00 PM Modules accepted: Orders EL SERVICE JOURNEYMAN * Telephone Encounter - Odalis Tripp - [...] did not take Rifabutin today. Please advise. EL SERVICE JOURNEYMAN * Telephone Encounter - Jesenia Ott. - 05/16/2023 9:37 AM CST This patient says she is having an allergic reaction from taking the medication called Rifabutin. The patient says that she is having Headaches, body aches and chills. Please call the patient at [phone]. EL SERVICE JOURNEYMAN documented in this encounter Plan of Treatment Not on file documented as of this encounter Visit Diagnoses Not on filedocumented in this encounter Care Teams Client Integration Manager Relationship Specialty Start Date End Date Karson Payne MD PCP - General Family Medicine 04/07/23 documented as of this encounter
--- OUTSIDE RECORDS SUMMARY | 2024-06-08 08:32 | XMS_ITS | Encounter Summary ---
Author Organization 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 Procedures ECG 12 lead Amanda Barahona MD [address] [place] [address] Phone: tel: fax: [facility] (All Locations) Referral ID Status Reason Start Date Expiration Date V isits Requested Visits Authorized [id number] Authorized 06/13/2023 2024 1 1 BASE MARKETING SPECIALIST Reason for Visit * Reason Comments Follow-up Encounter Details Date Type Department Care Team (Latest Contact Info) Description 06/13/2023 3:20 PM DATABASE MARKETING SPECIALIST Office Visit [facility] Infectious Diseases [address] [place] [address] [address] [place] [address] Amanda Barahona MD [address] [place] [address] Cutaneous Mycobacterium marinum infection (Primary Dx); Encounter [...] CDT Gender Identity Female 04/07/2023 6:04 PM DATABASE MARKETING SPECIALIST Sexual Orientation Straight 04/07/2023 6: 04 PM DATABASE MARKETING SPECIALIST documented as of this encounter Last Filed Vital Signs Vital Sign Reading Time Taken Comments Blood Pressure 127/87 06/13/2023 3:32 PM DATABASE MARKETING SPECIALIST Pulse 96 06/13/2023 3:32 PM DATABASE MARKETING SPECIALIST Temperature 36.6 ??C (97.8 ??F) 06/13/2023 3:32 PM CS T Respiratory Rate - - Oxygen Saturation - - Inhaled Oxygen Concentration - - Weight 147.4 kg (325 lb) 06/13/2023 3:32 PM DATABASE MARKETING SPECIALIST Height 180 cm (5' 10.87 ) 06/13/2023 3:32 PM DATABASE MARKETING SPECIALIST Body Mass Index 45.5 06/13/2023 3:32 PM DATABASE MARKETING SPECIALIST documented in this encounter Progress Notes [...] This started after falling on rocks/coral in [place]. Lesions have progressed into raised, scaly lesions [...] Mycobacterium marinum Sent for susceptibility testing to [facility], [address] [id number], [place], [place] [address] MICROBIOLOGY Final Report: Rare Mixed skin microorganisms. 04/07/2023 MICROBIOLOGY Final Report: No growth of fungus 04/07/2023 MICROBIOLOGY (.) 04/07/2023 Final Report: Mycobacterium marinum For additional result information, see attached scanned report. Notification of: Mycobacterium marinum called to and read back by: Duglas Solis [phone] on 04/27/2023 13:24:38 by: Trent Cabrera MLS [...] Virologic Testing: HIV Screen:No results found for: [id number] CD4:No results found for: CD4ABS , CD4PCT Common Virologic Results: No results found for: [id number] , CD4ABS , CD4PCT , NUCLEOSRT , [...] time spent in any separately reportable services. 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 73 m2 [facility] Comment: Interpretive Data Reference Interval Normal ?>/= [...] last reviewed 2021. Blood 06/13/2023 4:25 PM DATABASE MARKETING SPECIALIST 06/13/2023 6:53 PM DATABASE MARKETING SPECIALIST Amanda Barahona MD LAB BLOOD ORDERABLES Fi nal Result [facility] Department [place] [address] * (ABNORMAL) Differential, auto (06/13/2023 4:25 PM DATABASE MARKETING SPECIALIST) Pathologist [facility] Neutrophil abs 4.8 1.5 - 6.5 K/cumm [facility] Imm gran abs 0.0 0.0 - 0.1 K/cumm [facility] Lymphocyte abs 2.6 0.8 - 3.3 K/cumm [facility] Monocyte abs 1.3(H) 0.2 - 0.8 K/cumm [facility] Eosinophil abs 0.2 0.0 - 0.5 K/cumm [facility] Basophil abs 0.1 0.0 - 0.1 K/cumm [facility] Neutrophil pct 53.4 % [facility] Comment: Interpretive Data Percent cell count reference ranges are not reported, since discordance with absolute values may lead to misinterpretation of CBC data. Current Interpretive Data was last revised on 2017. Imm gran pct 0.3 % [facility] Comment: Interpretive Data Percent cell count reference ranges are not reported, since discordance with absolute values may lead to misinterpretation of CBC data. Current Interpretive Data was last revised on 2017. Lymphocyte pct 29.4 % [facility] Comment: Interpretive Data Percent cell count reference ranges are not reported, since discordance with absolute values may lead to misinterpretation of CBC data. Current Interpretive Data was last revised on 2017. Monocyte pct 14.5 % [facility] Comment: Interpretive Data Percent cell count reference ranges are not reported, since discordance with absolute values may lead to misinterpretation of CBC data. Current Interpretive Data was last revised on 2017. Eosinophil pct 1.7 % [facility] Comment: Interpretive Data Percent cell count reference ranges are not reported, since discordance with absolute values may lead to misinterpretation of CBC data. Current Interpretive Data was last revised on 2017. Basophil pct 0.7 % [facility] Comment: Interpretive Data Percent cell count reference ranges are not reported, since discordance with absolute values may lead to misinterpretation of CBC data. Current Interpretive Data was last revised on 2017. Blood 06/13/2023 4:25 PM DATABASE MARKETING SPECIALIST 06/13/2023 6:47 PM DATABASE MARKETING SPECIALIST Amanda Barahona MD LAB BLOOD ORDERABLES Fi nal Result [facility] Department [place] [address] * (ABNORMAL) Comprehensive metabolic panel (06/13/2023 4:25 PM DATABASE MARKETING SPECIALIST) Pathologist [facility] Sodium 141 135 - 145 mmol/L [facility] Potassium, pl 3.7 3.3 - 4.9 mmol/L [facility] Chloride 106 97 - 110 mmol/L [facility] CO2 24 22 - 32 mmol/L [facility] Anion gap 11 2 - 15 mmol/L [facility] BUN 13 6 - 25 mg/dL [facility] Creatinine 0.75 0.60 - 1.10 mg/dL [facility] Glucose 68(L) 70 - 199 mg/dL [facility] Comment: Interpretive Data Fasting glucose >/= 126 [...] 2022. Calcium 10.1 8.5 - 10.3 mg/dL [facility] Bilirubin, total 0.2 0.1 - 1.2 mg/dL [facility] Protein, pl 7.6 6.5 - 8.5 g/dL [facility] Albumin 4.0 3.5 - 5.0 g/dL [facility] Alk phos 58 40 - 130 Units/L [facility] ALT 8 7 - 45 Units/L [facility] AST 15 10 - 45 Units/L [facility] Blood 06/13/2023 4:25 PM DATABASE MARKETING SPECIALIST 06/13/2023 6:47 PM DATABASE MARKETING SPECIALIST Amanda Barahona MD LAB BLOOD ORDERABLES Fi nal Result [facility] Department [place] [address] * CBC with auto differential (06/13/2023 4:25 PM DATABASE MARKETING SPECIALIST) Pathologist [facility] WBC 8.9 3.8 - 9.9 K/cumm [facility] Hgb 14.1 11.9 - 15.5 g/dL [facility] Hct 42.4 35.6 - 45.5 % [facility] Plt 314 150 - 400 K/cumm [facility] MPV 10.4 9.1 - 12.3 fL [facility] RBC 4.78 3.90 - 5.20 M/cumm [facility] MCV 88.7 81.3 - 96.4 fL [facility] MCH 29.5 27.1 - 33.3 pg [facility] MCHC 33.3 32.3 - 35.7 g/dL [facility] RDW CV 13.4 11.1 - 14.9 % [facility] RDW SD 43.8 35.7 - 48.1 fL [facility] NRBC abs 0.00 0.00 - 0.01 K/cumm [facility] Blood 06/13/2023 4:25 PM DATABASE MARKETING SPECIALIST 06/13/2023 6:47 PM DATABASE MARKETING SPECIALIST Amanda Barahona MD LAB BLOOD ORDERABLES Fi nal Result [facility] Department [place] [address] documented in this encounter Visit Diagnoses Diagnosis 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
--- OUTSIDE RECORDS SUMMARY | 2024-06-08 08:32 | XMS_ITS | Encounter Summary ---
Author Organization [facility] Address [address] [place] [address] Phone Care Team Providers Care Information And Data Architect Analyst Name Role Phone Karson Payne MD Primary Care Provider +1- [phone] Reason for Visit * Reason Comments Follow-up Encounter Details Date Type Department Care Team (Latest Contact Info) Description 05/09/2023 3:00 PM BOX LOADER Office Visit [facility] Infectious Diseases [address] [place] [address] [address] [place] [id number] Amanda Barahona MD [address] [place], [place] [id number] Cutaneous Mycobacterium marinum infection (Primary Dx); Immunocompromised [...] CDT Gender Identity Female 04/07/2023 6:04 PM BOX LOADER Sexual Orientation Straight 04/07/2023 6: 04 PM BOX LOADER documented as of this encounter Last Filed Vital Signs Vital Sign Reading Time Taken Comments Blood Pressure 129/89 05/09/2023 3:13 PM BOX LOADER Pulse 88 05/09/2023 3:13 PM BOX LOADER Temperature 36.8 ??C (98.2 ??F) 05/09/2023 3:13 PM CS T Respiratory Rate - - Oxygen Saturation - - Inhaled Oxygen Concentration - - Weight 146.5 kg (323 lb) 05/09/2023 3:13 PM BOX LOADER Height 180 cm (5' 10.87 ) 05/09/2023 3:13 PM BOX LOADER Body Mass Index 45.22 05/09/2023 3:13 PM BOX LOADER documented in this encounter Ordered Prescriptions Prescription [...] This started after falling on rocks/coral in [place]. Lesions have progressed into raised, scaly lesions [...] to and read back by: Duglas Will [phone] on 04/27/2023 13:24:38 by: Trent Cabrera MLCandice [...] Virologic Testing: HIV Screen:No results found for: [id number] CD4:No results found for: CD4ABS , CD4PCT Common Virologic Results: No results found for: [id number] , CD4ABS , CD4PCT , NUCLEOSRT , [...] [place] found to have M marinum infection. Initially [...] encouraged to discuss with her PCP or drapery maker should she change her mind. Would anticipate [...] time spent in any separately reportable services. LOADER documented in this encounter Plan of Treatment [...] documented as of this encounter Care Teams Information And Data Architect Analyst Relationship Specialty Start Date End Date Karson Payne MD PCP - General Family Medicine 04/07/23 documented as of this encounter
--- OUTSIDE RECORDS SUMMARY | 2024-06-08 08:32 | XMS_ITS | Encounter Summary ---
Author Organization [facility] Address [address] [place] [address] Care Team Providers Care Finance Professor Name Role Phone Karson Payne MD Primary Care Provider +1- [phone] Encounter Details Date Type Department Care Team (Late st Contact Info) Description 05/26/2023 Telephone Infectious Diseases Duglas Solis MD [address] [address] Social History Tobacco Use Types Packs/Day Years [...] CDT Gender Identity Female 04/07/2023 6:04 PM RETAIL PLANNING MANAGER Sexual Orientation Straight 04/07/2023 6: 04 PM RETAIL PLANNING MANAGER documented as of this encounter Miscellaneous Notes * Telephone Encounter - Duglas Solis MD - 05/26/2023 11:43 AM RETAIL PLANNING MANAGER Received a call from Ms. Zavaleta as [...] -- Duglas Solis MD Infectious Disease Fellow [place] PLANNING MANAGER documented in this encounter Plan of Treatment Not on file documented as of this encounter Visit Diagnoses Not on filedocumented in this encounter Care Teams Finance Professor Relationship Specialty Start Date End Date Karson Payne MD PCP - General Family Medicine 04/07/23 documented as of this encounter
--- OUTSIDE RECORDS SUMMARY | 2024-06-08 08:32 | XMS_ITS | Encounter Summary ---
Author Organization [facility] Address [address] [place] [address] Phone Care Team Providers Care Collaborative Physician Name Role Phone Karson Payne MD Primary Care Provider +1- [phone] Reason for Visit * Reason Comments Follow-up Encounter Details Date Type Department Care Team (Latest Contact Info) Description 09/12/2023 3:20 PM CDT Office Visit [facility] Infectious Diseases [address] [place] [address] [address] [place] [address] Amanda Barahona MD [address] [place], [place] [id number] Cutaneous Mycobacterium marinum infection (Primary Dx); Encounter [...] CDT Gender Identity Female 04/07/2023 6:04 PM SENIOR HUMAN RESOURCES REPRESENTATIVE Sexual Orientation Straight 04/07/2023 6: 04 PM SENIOR HUMAN RESOURCES REPRESENTATIVE documented as of this encounter Last Filed [...] This started after falling on rocks/coral in [place]. Lesions have progressed into raised, scaly lesions [...] GI doctor - Omar Johns office at [facility] - sees Maria T Objective Vitals: Most [...] only Mycobacterium marinum Susceptibility performed by the [facility] [place], [address] [place] [address], [place], [place] [address] * * * * * * * [...] to and read back by: Duglas Solis [phone] on 04/27/2023 13:24:38 by: Trent Cabrera MLS [...] Virologic Testing: HIV Screen:No results found for: [id number] CD4:No results found for: CD4ABS , CD4PCT Common Virologic Results: No results found for: [id number] , CD4ABS , CD4PCT , NUCLEOSRT , [...] scraping LE on coral in ocean in [place] found to have M marinum infection. Initially [...] LAB BLOOD ORDERABLES Fi nal Result [facility] Department [place] [address] * (ABNORMAL) Differential, auto (09/12/2023 4:03 PM CDT) Neutrophil abs 3.2 1.5 - 6.5 K/cumm Imm gran abs 0.0 0.0 - 0.1 K/cumm [facility] Lymphocyte abs 2.8 0.8 - 3.3 K/cumm [facility] Monocyte abs 1.0(H) 0.2 - 0.8 K/cumm [facility] Eosinophil abs 0.2 0.0 - 0.5 K/cumm [facility] Basophil abs 0.1 0.0 - 0.1 K/cumm [facility] Neutrophil pct 44.1 % [facility] Comment: Interpretive Data Percent cell count reference ranges are not reported, since discordance with absolute values may lead to misinterpretation of CBC data. Current Interpretive Data was last revised on 2017. Imm gran pct 0.3 % [facility] Comment: Interpretive Data Percent cell count reference ranges are not reported, since discordance with absolute values may lead to misinterpretation of CBC data. Current Interpretive Data was last revised on 2017. Lymphocyte pct 38.7 % [facility] Comment: Interpretive Data Percent cell count reference ranges are not reported, since discordance with absolute values may lead to misinterpretation of CBC data. Current Interpretive Data was last revised on 2017. Monocyte pct 14.0 % [facility] Comment: Interpretive Data Percent cell count reference ranges are not reported, since discordance with absolute values may lead to misinterpretation of CBC data. Current Interpretive Data was last revised on 2017. Eosinophil pct 2.1 % [facility] Comment: Interpretive Data Percent cell count reference ranges are not reported, since discordance with absolute values may lead to misinterpretation of CBC data. Current Interpretive Data was last revised on 2017. Basophil pct 0.8 % [facility] Comment: Interpretive Data Percent cell count reference ranges are not reported, since discordance with absolute values may lead to misinterpretation of CBC data. Current Interpretive Data was last revised on 2017. Blood 09/12/2023 4:03 PM CDT 09/12/2023 7:24 PM CDT Amanda Barahona MD LAB BLOOD ORDERABLES Fi nal Result [facility] Department [place] [address] * Comprehensive metabolic panel (09/12/2023 4:03 PM CDT) Sodium 141 135 - 145 mmol/L Potassium, pl 3.7 3.3 - 4.9 mmol/L [facility] Chloride 105 97 - 110 mmol/L [facility] CO2 25 22 - 32 mmol/L [facility] Anion gap 11 2 - 15 mmol/L [facility] BUN 12 6 - 25 mg/dL [facility] Creatinine 0.73 0.60 - 1.10 mg/dL [facility] Glucose 71 70 - 199 mg/dL [facility] Comment: Interpretive Data Fasting glucose >/= 126 [...] Calcium 9.5 8.5 - 10.3 mg/dL [facility] Bilirubin, total 0.2 0.1 - 1.2 mg/dL [facility] Protein, pl 7.3 6.5 - 8.5 g/dL [facility] Albumin 4.2 3.5 - 5.0 g/dL [facility] Alk phos 61 40 - 130 Units/L [facility] ALT 15 7 - 45 Units/L [facility] AST 37 10 - 45 Units/L [facility] Blood 09/12/2023 4:03 PM CDT 09/12/2023 7:24 PM CDT Amanda Barahona MD LAB BLOOD ORDERABLES Fi nal Result Performing Organization Address [facility] de Phone Number [facility] [place] [address] * CBC with auto differential (09/12/2023 4:03 PM CDT) WBC 7.3 3.8 - 9.9 K/cumm Hgb 13.6 11.9 - 15.5 g/dL [facility] Hct 40.6 35.6 - 45.5 % [facility] Plt 306 150 - 400 K/cumm [facility] MPV 10.4 9.1 - 12.3 fL [facility] RBC 4.53 3.90 - 5.20 M/cumm [facility] MCV 89.6 81.3 - 96.4 fL [facility] MCH 30.0 27.1 - 33.3 pg [facility] MCHC 33.5 32.3 - 35.7 g/dL [facility] RDW CV 13.4 11.1 - 14.9 % [facility] RDW SD 44.3 35.7 - 48.1 fL [facility] NRBC abs 0.00 0.00 - 0.01 K/cumm [facility] Blood 09/12/2023 4:03 PM CDT 09/12/2023 7:24 PM CDT Amanda Barahona MD LAB BLOOD ORDERABLES Fi nal Result Performing Organization Address [facility] Co de Phone Number [facility] [place] [address] documented in this encounter Visit Diagnoses Diagnosis [...] documented as of this encounter Care Teams Collaborative Physician Relationship Specialty Start Date End Date Karson Payne MD PCP - General Family Medicine 04/07/23 documented as of this encounter
--- OUTSIDE RECORDS SUMMARY | 2024-06-08 08:32 | XMS_ITS | Encounter Summary ---
Author Organization [facility] Address [address] [place] [address] Phone Care Team Providers Care Liquid Sugar Melter Name Role Phone Karson Payne MD Primary Care Provider +1- [phone] Encounter Details Date Type Department Care Team (Late st Contact Info) Description 06/01/2023 Orders Only [facility] Infectious Diseases [address] [place] [address] [address] [place] [address] Amanda Barahona MD [address] [place] [address] Social History Tobacco Use Types Packs/Day Years [...] CDT Gender Identity Female 04/07/2023 6:04 PM BASEBALL PITCHER Sexual Orientation Straight 04/07/2023 6: 04 PM BASEBALL PITCHER documented as of this encounter Ordered Prescriptions [...] documented as of this encounter Care Teams Liquid Sugar Melter Relationship Specialty Start Date End Date Karson Payne MD PCP - General Family Medicine 04/07/23 documented as of this encounter
--- OUTSIDE RECORDS SUMMARY | 2024-06-08 08:32 | XMS_ITS | Encounter Summary ---
Author Organization [facility] Healthcare Address [address] [place] [address] Care Team Providers Care Lithographic Press Feeder Name Role Phone Karson Payne MD Primary Care Provider +1- [phone] Encounter Details Date Type Department Care Team (Latest Contact Info) Description 06/13/2023 6:10 PM HOUSE DECORATOR - 06/13/2023 11:59 PM HOUSE DECORATOR [place] [address] Discharge Disposition: Discharge to home or self [...] CDT Gender Identity Female 04/07/2023 6:04 PM HOUSE DECORATOR Sexual Orientation Straight 04/07/2023 6: 04 PM HOUSE DECORATOR documented as of this encounter Medications at [...] on filedocumented in this encounter Care Teams Lithographic Press Feeder Relationship Specialty Start Date End Date Karson Payne MD PCP - General Family Medicine 04/07/23 documented as of this encounter
--- OUTSIDE RECORDS SUMMARY | 2024-06-08 08:32 | XMS_ITS | Encounter Summary ---
Author Organization [facility] Address [address] [place] [address] Phone Care Team Providers Care Lead Qa Analyst Name Role Phone Karson Payne MD Primary Care Provider +1- [phone] Encounter Details Date Type Department Care Team (Late st Contact Info) Description 08/18/2023 Telephone [facility] Infectious Diseases [address] [place] [address] [address] [place] [address] Jesenia Ott CMA Social History [...] CDT Gender Identity Female 04/07/2023 6:04 PM HOSPICE CHAPLAIN Sexual Orientation Straight 04/07/2023 6: 04 PM HOSPICE CHAPLAIN documented as of this encounter Miscellaneous Notes [...] For questions, please call the patient at [phone]. documented in this encounter Plan of Treatment Not on file documented as of this encounter Visit Diagnoses Not on filedocumented in this encounter Care Teams Lead Qa Analyst Relationship Specialty Start Date End Date Karson Payne MD PCP - General Family Medicine 04/07/23 documented as of this encounter
--- OUTSIDE RECORDS SUMMARY | 2024-06-08 08:32 | XMS_ITS | Encounter Summary ---
Author Organization [facility] Address [address] [place] [address] Phone Care Team Providers Care Concession Attendant Name Role Phone Karson Payne MD Primary Care Provider +1- [phone] Encounter Details Date Type Department Care Team (Late st Contact Info) Description 05/31/2023 Telephone [facility] Infectious Diseases [address] [place] [address] [address] [place] [address] Mary Juarez LCSW Social History [...] CDT Gender Identity Female 04/07/2023 6:04 PM PREPARATION OPERATOR Sexual Orientation Straight 04/07/2023 6: 04 PM PREPARATION OPERATOR documented as of this encounter Miscellaneous Notes * Telephone Encounter - Odalis Tripp - 06/01/2023 8:36 AM CST Responded to Fliqq message. Preferred pharmacy is [facility] ARATION OPERATOR * Telephone Encounter - Mary Juarez LCSW - 05/31/2023 3:45 PM PREPARATION OPERATOR Patient has new insurance, and needs to do mail orders now due to her insurance. Call [facility] at [phone], [facility], 90 day supply preferred. Myambutol and Zithromax ARATION OPERATOR documented in this encounter Plan of Treatment Not on file documented as of this encounter Visit Diagnoses Not on filedocumented in this encounter Care Teams Concession Attendant Relationship Specialty Start Date End Date Karson Payne MD PCP - General Family Medicine 04/07/23 documented as of this encounter
--- OUTSIDE RECORDS SUMMARY | 2024-06-08 08:32 | XMS_ITS | Encounter Summary ---
Author Organization [facility] Healthcare Address [address] [place] [address] Care Team Providers Care Garnett Machine Operator Helper Name Role Phone Karson Payne MD Primary Care Provider +1- [phone] Encounter Details Date Type Department Care Team (Late st Contact Info) Description 05/26/2023 Orders Only Infectious Diseases Duglas Solis MD [address] [address] Social History Tobacco Use Types Packs/Day Years [...] CDT Gender Identity Female 04/07/2023 6:04 PM COLLAR TRIMMER Sexual Orientation Straight 04/07/2023 6: 04 PM COLLAR TRIMMER documented as of this encounter Plan of Treatment Not on file documented as of this encounter Visit Diagnoses Not on filedocumented in this encounter Care Teams Garnett Machine Operator Helper Relationship Specialty Start Date End Date Karson Payne MD PCP - General Family Medicine 04/07/23 documented as of this encounter
--- OUTSIDE RECORDS SUMMARY | 2024-06-08 08:33 | XMS_ITS | Encounter Summary ---
Author Organization [facility] Healthcare Address [address] [place] [address] Care Team Providers Care Histologic Aide Name Role Phone Karson Payne MD Primary Care Provider +1- [phone] Encounter Details Date Type Department Care Team (Late st Contact Info) Description 05/01/2023 Telephone Infectious Diseases Duglas Solis MD [address] [address] Social History Tobacco Use Types Packs/Day Years [...] CDT Gender Identity Female 04/07/2023 6:04 PM PATIENT REPRESENTATIVE Sexual Orientation Straight 04/07/2023 6: 04 PM PATIENT REPRESENTATIVE documented as of this encounter Miscellaneous Notes * Telephone Encounter - Duglas Solis MD - 05/01/2023 2:10 PM PATIENT REPRESENTATIVE I spoke with Ms. Zavaleta again after [...] -- Duglas Solis MD Infectious Disease Fellow ENT REPRESENTATIVE ENT REPRESENTATIVE documented in this encounter Plan of Treatment Not on file documented as of this encounter Visit Diagnoses Not on filedocumented in this encounter Care Teams Histologic Aide Relationship Specialty Start Date End Date Karson Payne MD PCP - General Family Medicine 04/07/23 documented as of this encounter
--- OUTSIDE RECORDS SUMMARY | 2024-06-08 08:33 | XMS_ITS | Encounter Summary ---
Author Organization [facility] Healthcare Address [address] [place] [address] Care Team Providers Care Data Migration Lead Name Role Phone Karson Payne MD Primary Care Provider +1- [phone] Encounter Details Date Type Department Care Team (Late st Contact Info) Description 05/01/2023 Orders Only Infectious Diseases Duglas Solis MD [address] [address] Social History Tobacco Use Types Packs/Day Years [...] CDT Gender Identity Female 04/07/2023 6:04 PM ELECTRICAL LINE SPLICER Sexual Orientation Straight 04/07/2023 6: 04 PM ELECTRICAL LINE SPLICER documented as of this encounter Plan of Treatment Not on file documented as of this encounter Visit Diagnoses Not on filedocumented in this encounter Care Teams Data Migration Lead Relationship Specialty Start Date End Date Karson Payne MD PCP - General Family Medicine 04/07/23 documented as of this encounter
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
--- OUTSIDE RECORDS SUMMARY | 2024-06-08 08:33 | XMS_ITS | Encounter Summary ---
Author Organization [facility] Healthcare Address [address] [place] [address] Care Team Providers Care Car Wash Attendant Automatic Name Role Phone Wade Nickerson MD PhD Primary Care Provider Encounter Details Date Type Department Care Team (Late st Contact Info) Description 12/03/2018 Telephone [facility] Neurodiagnostics [address] [place] [address] Maura Hager Social History Tobacco Use Types Packs/Day Years Used Date Smoking Tobacco: Never Smokeless Tobacco: Never Alcohol Use Standard Drinks/Week Comments Yes 0 (1 standard drink = 0.6 oz pur e alcohol) Comments Unknown Sex and Gender Information Value Date Recorded Sex Assigned at Not on file Legal Sex Female 11:25 AM CDT Gender Identity Female 04/07/2023 6:04 PM FORECLOSURE CLERK Sexual Orientation Straight 04/07/2023 6: 04 PM FORECLOSURE CLERK documented as of this encounter Miscellaneous Notes * Telephone Encounter - Maura Hager - 12/03/2018 10:53 AM CDT Paige called to cancel her EEG. We are not in network with her insurance. documented in this encounter Plan of Treatment Not on file documented as of this encounter Visit Diagnoses Not on filedocumented in this encounter Care Teams Car Wash Attendant Automatic Relationship Specialty Start Date End Date Wade Nickerson MD PhD [address] [facility] [address] [place] [address] PCP - General Neurology 11/26/18 04/06/23 documented as of this encounter
--- OUTSIDE RECORDS SUMMARY | 2024-06-08 08:33 | XMS_ITS | Encounter Summary ---
Author Organization [facility] Facility Care Team Providers Care Floatlight Powder Mixer Name Role Phone Wade Nickerson MD PhD [...] CDT Gender Identity Female 04/07/2023 6:04 PM BLOWER OPERATOR Sexual Orientation Straight 04/07/2023 6: 04 PM BLOWER OPERATOR documented as of this encounter Plan of Treatment Not on file documented as of this encounter Visit Diagnoses Not on filedocumented in this encounter Care Teams Floatlight Powder Mixer Relationship Specialty Start Date End Date Wade Nickerson MD PhD [address] [facility] [address] [place] [address] PCP - General Neurology 11/26/18 04/06/23 documented as of this encounter
--- OUTSIDE RECORDS SUMMARY | 2024-06-08 08:33 | XMS_ITS | Encounter Summary ---
Author Organization [facility] Address [address] [place] [address] Care Team Providers Care Transfer Coordinator Name Role Phone Wade Nickerson MD PhD Primary Care Provider Encounter Details Date Type Department Care Team (Late st Contact Info) Description 12/04/2018 Telephone [facility] [address] [place] [address] Geovanna Bullard MA Social History Tobacco Use Types Packs/Day Years Used Date Smoking Tobacco: Never Smokeless Tobacco: Never Alcohol Use Standard Drinks/Week Comments Yes 0 (1 standard drink = 0.6 oz pur e alcohol) Comments Unknown Sex and Gender Information Value Date Recorded Sex Assigned at Not on file Legal Sex Female 11:25 AM CDT Gender Identity Female 04/07/2023 6:04 PM PLATE SLITTER AND INSPECTOR Sexual Orientation Straight 04/07/2023 6: 04 PM PLATE SLITTER AND INSPECTOR documented as of this encounter Miscellaneous Notes * Telephone Encounter - Geovanna Bullard MA - 12/05/2018 10:54 AM CDT Attempted to return patient call no answer, will try back later. * Telephone Encounter - Wade Nickerson MD PhD - 12/04/2018 2:39 PM CDT I am surprised that the epilepsy Center at [facility] is out of network as I thought we were all on the same plans. In any event she could check with Dr. James Torres at [facility] who has an epilepsy center there. He [...] on filedocumented in this encounter Care Teams Transfer Coordinator Relationship Specialty Start Date End Date Wade Nickerson MD PhD [address] [facility] [address] [place] [address] PCP - General Neurology 11/26/18 04/06/23 documented as of this encounter
--- OUTSIDE RECORDS SUMMARY | 2024-06-08 08:33 | XMS_ITS | Encounter Summary ---
Author Organization [facility] Address [address] [place] [address] Care Team Providers Care Bath Design Sales Consultant Name Role Phone Wade Nickerson MD PhD Primary Care Provider Reason for Visit * Reason Comments Seizures Encounter Details Date Type Department Care Team (Late st Contact Info) Description 11/26/2018 11:00 AM CDT Office Visit [facility] [address] [place] [address] Wade Nickerson MD PhD [address] [place], [place] [id number] Seizure disorder (CMS/HCC) (Primary Dx) Social History Tobacco Use Types Packs/Day Years Used Date Smoking Tobacco: Never Smokeless Tobacco: Never Alcohol Use Standard Drinks/Week Comments Yes 0 (1 standard drink = 0.6 oz pur e alcohol) Comments Unknown Sex and Gender Information Value Date Recorded Sex Assigned at Not on file Legal Sex Female 11:25 AM CDT Gender Identity Female 04/07/2023 6:04 PM FABRICATOR FOAM RUBBER Sexual Orientation Straight 04/07/2023 6: 04 PM FABRICATOR FOAM RUBBER documented as of this encounter Last Filed [...] disorder. She has been followed by her nailhead operator in the [place] area. Her first seizure occurred in 2009. [...] think she was confused afterwards. Apparently her nailhead operator discussed itwith a neurologist and she was [...] pinprick, vibratory sensation and proprioception normal. COORDINATION: [id number]-[id number]-[id number] and rapid alternating movements of the hands [...] level. [facility] I am going to refer her to the comprehensive epilepsy Clinic at [facility] who I think may be better able to advised her regarding the safety of coming off of medication at this time Diagnoses and all orders for this visit: Seizure disorder (CMS/HCC) (Primary) - Comprehensive metabolic panel; Future - CBC with auto differential; Future - Valproic acid level, total; Future - EEG; Future Dictation completed by Qminder software. Lip Cutter variances may occur. Wade Nickerson M.D., Ph.D. [...] 04/07/2023 added in this encounter Care Teams Bath Design Sales Consultant Relationship Specialty Start Date End Date Wade Nickerson MD PhD [address] [facility] [address] [place] [address] PCP - General Neurology 11/26/18 04/06/23 documented as of this encounter
--- OUTSIDE RECORDS SUMMARY | 2024-06-08 08:33 | XMS_ITS | Encounter Summary ---
Author Organization [facility] Address [address] [place] [address] Phone Care Team Providers Care General Road Production Manager Name Role Phone Karson Payne MD Primary Care Provider [phone] Encounter Details Date Type Department Care Team (Late st Contact Info) Description 04/24/2023 Telephone [facility] Infectious Diseases [address] [place] [address] [address] [place] [address] Priscilla Yanez Social History Tobacco [...] CDT Gender Identity Female 04/07/2023 6:04 PM DROP TESTER Sexual Orientation Straight 04/07/2023 6: 04 PM DROP TESTER documented as of this encounter Ordered Prescriptions [...] on: 05/02/2023 02:19 PM Modules accepted: Orders TESTER * Addendum Note - Duglas Denny MD - 05/01/2023 2:33 PM CSTAddended by: DUGLAS DENNY on: 05/01/2023 02:33 PM Modules accepted: Orders TESTER * Telephone Encounter - Duglas Denny MD - 04/24/2023 12:14 PM DROP TESTER I spoke with Ms. Zavaleta. Her cultures [...] 05/09. Duglas Denny MD Infectious Disease Fellow TESTER * Telephone Encounter - Priscilla YanezEva - 04/24/2023 11:59 AM CST [phone], patient is wanting to know her follow up plan. Also, she is wanting the meds she is suppose to be getting. A concoction of meds. TESTER documented in this encounter Plan of Treatment [...] documented as of this encounter Care Teams General Road Production Manager Relationship Specialty Start Date End Date Karson Payne MD PCP - General Family Medicine 04/07/23 documented as of this encounter
--- OUTSIDE RECORDS SUMMARY | 2024-06-08 08:33 | XMS_ITS | Encounter Summary ---
Author Organization [facility] Healthcare Address [address] [place] [address] Care Team Providers Care Textile Knitter Name Role Phone Wade Nickerson MD PhD Primary Care Provider Karson Payne MD Primary Care Provider [phone] Reason for Visit * Reason Comments Foot Pain * Auth/Cert (Routine) Specialty Diagnoses / Procedures Referred By Contac t Referred To Contact Diagnoses Wound infection Procedures N/A Referral ID Status Reason Start Date Expiration Date Visits Re quested Visits Authorized [id number] 1 1 Encounter Details Date Type Department Care Team (Latest Contact Info) Description 04/06/2023 9:57 PM SCALE ASSEMBLY SET UP WORKER - 04/07/2023 5:57 PM [facility] Hospital Encounter [facility] [address] [place] [address] Thang Tinoco MD [address] [facility] [address] [place] [address] Fouzia Mccormack MD [address] [facility] [address] [place] [address] Maria Isabel Reid MD [address] [facility] [address] [place] [address] Wound infection (Primary Dx) Discharge Disposition: Discharge [...] CDT Gender Identity Female 04/07/2023 6:04 PM SCALE ASSEMBLY SET UP WORKER Sexual Orientation Straight 04/07/2023 6: 04 PM SCALE ASSEMBLY SET UP WORKER documented as of this encounter Last Filed Vital Signs Vital Sign Reading Time Taken Comments Blood Pressure 154/91 04/07/2023 1:54 PM SCALE ASSEMBLY SET UP WORKER Pulse 110 04/07/2023 1:46 PM SCALE ASSEMBLY SET UP WORKER Temperature 37.1 ??C (98.8 ??F) 04/07/2023 1:46 PM CS T Respiratory Rate 17 04/07/2023 1:46 PM SCALE ASSEMBLY SET UP WORKER Oxygen Saturation 97% 04/07/2023 1:46 PM SCALE ASSEMBLY SET UP WORKER Inhaled Oxygen Concentration - - Weight 147.9 kg (326 lb) 04/07/2023 1:35 AM SCALE ASSEMBLY SET UP WORKER Height 180.3 cm (5' 11 ) 04/07/2023 1:35 AM SCALE ASSEMBLY SET UP WORKER Body Mass Index 45.47 04/07/2023 1:35 AM SCALE ASSEMBLY SET UP WORKER documented in this encounter Discharge Summaries * Kasie Fonseca MD - 04/07/2023 5:57 PM CST Inpatient Discharge Summary BRIEF OVERVIEW Admitting Provider: Thang Tinoco MD Discharge Provider: No att. providers found Primary Care Physician at Discharge: Karson Payne MD [phone] Admission Date: 04/06/2023 Discharge Date: 04/07/2023 Admission Location: [facility] Problems/Diagnoses: Principal Problem: Wound infection Resolved [...] cefadroxil without resolution. 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 They prescribed her a variety of medications and topicals (terbinafine, clobetasol, clotrimazole and betamethasone, crisaborole, ruxolitinib) which she reports all made it worse. She sought a second opinion at [facility] dermatology who performed a skin biopsy 03/29 [...] and betamethasone, crisaborole, ruxolitinib. Second opinion with [facility] dermatopathology showed infiltrate of lymphocytes, histiocytes, neutrophils [...] risks including bleeding, scarring, infection, and recurrence/persistence. [place] Protocol Time-Out performed. The lesional area was [...] and matched to patient identification: yes Responsible republican for transporting specimen(s) to lab determined: yes [...] 04/06/23 2248 Result status: Final Resulting lab: [facility] Reference range: Negative Value: Negative Comment: The [...] 04/06/232229 Result status: Final Resulting lab: [facility] Reference range: 70.0 - 400.0 mg/dL Value: 137.0 Immunoglobulin M IgM Collected: 04/06/232229 Result status: Final Resulting lab: [facility] Reference range: 40.0 - 230.0 mg/dL Value: 179.0 CRP CRP (acute phase) Collected: 04/06/232229 Result status: Final Resulting lab: [facility] Reference range: <=10.0 mg/L Value: 17.0 High Erythrocyte sedimentation rate Erythrocyte sedimentation rate Collected: 04/06/232229 Result status: Final Resulting lab: [facility] Reference range: 1 - 20 mm/hr Value: [...] Discharge: Full Code Discharge Instructions: Dear Zoltan [place], You were recently admitted to [facility] for workup of non-healing rash of [...] helps with dryness and itching. Contact information: [facility]: [phone] [facility]: [phone] Activity Instructions Discharge activity: Resume normal activity [...] Family Medicine Relationship: PCP - General [address] [address] Next Steps: Follow up Cosigned by Maria Isabel Reid MD at 04/09/2023 7:19 PM SCALE ASSEMBLY SET UP WORKER E ASSEMBLY SET UP WORKER E ASSEMBLY SET UP WORKER documented in this encounter Discharge Instructions * Discharge Instructions* Kasie Fonseca MD - 04/07/2023 3:18 PM SCALE ASSEMBLY SET UP WORKER Dear Zoltan Sprague, You were recently admitted to [facility] for workup of non-healing rash of [...] helps with dryness and itching. Contact information: [facility]: [phone] [facility]: [phone] E ASSEMBLY SET UP WORKER E ASSEMBLY SET UP WORKER E ASSEMBLY SET UP WORKER E ASSEMBLY SET UP WORKER * Appointments* Rosalva Pozo RN - 04/07/2023 3:59 PM SCALE ASSEMBLY SET UP WORKER Please call Karson Payne MD P: [phone] to schedule a Hospital Follow Up Visit E ASSEMBLY SET UP WORKER documented in this encounter Medications at Time [...] reports she drove herself and parked in [facility] ER Garage and will drive herself home) Post Discharge Care Provider Post Discharge Care Plan Next level of care provider has access to complete EMR (Karson Payne MD P: [phone]) Per medical team, patient is medically stable for discharge at this time. Follow up appointment patient will need to call and schedule Hospital Follow UP Appointment with Karson Payne MD P: [phone] . Transportation will be provided by Family . Patient and/or family are agreeable with the plan. If any further discharge needs arise, please contact the covering director case management. E ASSEMBLY SET UP WORKER documented in this encounter H&P Notes * Bg Garza MD - 04/07/2023 12:55 AM CST Internal Medicine History and Physical Date: 04/07/23 CARE TEAM Patient: Zoltan Sprague Primary Care Physician: Wade Nickerson MD PhD Room: [place] [address] [address] Attending Physician: MARIA ISABEL REID Subjective Chief [...] cefadroxil without resolution. 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 They prescribed her a variety of medications and topicals (terbinafine, clobetasol, clotrimazole and betamethasone, crisaborole, ruxolitinib) which she reports all made it worse. She sought a second opinion at [facility] dermatology who performed a skin biopsy 03/29 [...] Rapid HIV, POC Negative Negative Lot Number [id number] QC Control Line Acceptable IgG Collection Time: [...] Isabel Reid MD at 04/07/2023 2:52 PM SCALE ASSEMBLY SET UP WORKER E ASSEMBLY SET UP WORKER E ASSEMBLY SET UP WORKER Associated attestation - Maria Isabel Reid MD - 04/07/2023 2:52 PM SCALE ASSEMBLY SET UP WORKER I have seen and examined the patient on 04/07/23. I agree with the findings and plan of care as documented in the resident's/fellow's note.. documented in this encounter Procedure Notes * Gisel Malin MD - 04/07/2023 5:57 PM CST Derm Punch Biopsy Date/Time: 04/07/2023 8:01 PM Performed by: Gisel Malin MD Authorized by: ALEXUS MARTIN [place] Protocol: RN Notified of Procedure: yes Informed [...] risks including bleeding, scarring, infection, and recurrence/persistence. [place] Protocol Time-Out performed. The lesional area was [...] and matched to patient identification: yes Responsible republican for transporting specimen(s) to lab determined: yes Signed By: Gisel Malin MD Dermatology Resident, PGY-4 04/07/2023 Cosigned by Alexus Martin MD at 04/10/2023 9:39 AM SCALE ASSEMBLY SET UP WORKER E ASSEMBLY SET UP WORKER E ASSEMBLY SET UP WORKER Associated attestation - Alexus Martin MD - 04/10/2023 9:39 AM SCALE ASSEMBLY SET UP WORKER I have seen and examined the patient [...] She fell off her jet ski in [place] this past November and tried to climb [...] werenever cut and exposed to water in [place]. The lesions generally do not hurt (although [...] mg capsule Current Facility-Administered Medications Ordered in [facility] Medication Dose Route Frequency Provider Last Rate [...] flush 0.5-20 mL 0.5-20 mL intra-catheter Q8H [facility] Bg Garza MD And sodium chloride 0.9% [...] flush 0.5-20 mL 0.5-20 mL intra-catheter Q8H [facility] Bg Garza MD sodium chloride 0.9% flush 0.5-20 mL 0.5-20 mL intra-catheter Bg Banuelos MD No current [facility]-ordered outpatient medications on file. Active Lines/Ports/Devices: Peripheral [...] Virologic Testing: HIV Screen:No results found for: [id number] CD4:No results found for: CD4ABS , CD4PCT Common Virologic Results: No results found for: DDB8YSP , CD4ABS , CD4PCT , NUCLEOSRT , [...] bilateral feet and ankles after falling on [employer]. Lesions have progressed into raised, scaly [...] Mercedes Neal MD at 04/07/2023 2:50 PM SCALE ASSEMBLY SET UP WORKER E ASSEMBLY SET UP WORKER E ASSEMBLY SET UP WORKER Associated attestation - Mercedes Neal MD - 04/07/2023 2:50 PM SCALE ASSEMBLY SET UP WORKER I have seen and examined the patient [...] ulcerative colitis (azathioprine 50mg daily, infliximab-dybb 700mg [id number]) who is currently admitted for management of bilateral lower extremity wounds/lesions.Dermatology consulted for evaluation/management of rash on bilateral lower legs. History of Present Illness: Rash started after trip to [place], [place] in November 2022. Pt was jet skiing in water and fell off [place] ski, climbed onto ?rocks vs coral reef to get back on [place] ski and cut her feet in multiple [...] she reports showed atopic dermatitis and [facility] that showed: Specimen A. SKIN, right [...] at the following numbers: Weekdays M-F 7:30AM-5PM: [phone] Nights/weekend M-F 5PM-7:30AM, [place] 19/12: [phone] For patients or family members viewing this note through Copious programs: This note was written as a [...] be involved in your care. Signed By: Gisel Malin MD Dermatology Resident, PGY-4 04/07/2023 Cosigned by Alexus Martin MD at 04/11/2023 10:48 AM SCALE ASSEMBLY SET UP WORKER E ASSEMBLY SET UP WORKER E ASSEMBLY SET UP WORKER Associated attestation - Alexus Martin MD - 04/11/2023 10:48 AM SCALE ASSEMBLY SET UP WORKER ATTESTATION: I have seen and examined the [...] Pt leaving via private transport by herself. E ASSEMBLY SET UP WORKER documented in this encounter ED Notes * [...] pt fell [place] a [place] in [place] and had to climb on coral-covered rocks [...] place, and time. Psychiatric: Behavior: Behavior normal. [facility] Medical Decision Making This is a [...] bridge on 11/28/2022 while jet skiing in [place], [place]. Has developed chronic lesions to both [...] bridge on 11/28/2022 while jet skiing in [place]. Has developed chronic lesions to both [...] Resident 04/07/23 0108 Thang Tinoco MD 04/07/2331 E ASSEMBLY SET UP WORKER E ASSEMBLY SET UP WORKER * Asim Abreu RN - 04/06/2023 9:57 PM CST Bed: [facility] Expected date: Expected time: Means of arrival: Comments: Triage Asim Abreu RN 04/06/23 639 E ASSEMBLY SET UP WORKER * Seeker, Denisse Bernardo RN - 04/06/2023 [...] her legs, draining occasionally. PMH: ulcerative colitis. E ASSEMBLY SET UP WORKER documented in this encounter Miscellaneous Notes * [...] part of the patient???s medical record. Sincerely, [facility] Information Management E ASSEMBLY SET UP WORKER * Hospital Course - Kasie Fonseca MD - 04/07/2023 5:57 PM SCALE ASSEMBLY SET UP WORKER Zoltan Sprague is a 27 y.o. female [...] diagnostic/treatment recommendations once biopsy results are available. E ASSEMBLY SET UP WORKER E ASSEMBLY SET UP WORKER E ASSEMBLY SET UP WORKER E ASSEMBLY SET UP WORKER * Initial Assessments - Rosalva Pozo RN - 04/07/2023 12:05 PM SCALE ASSEMBLY SET UP WORKER CM Initial Assessment Interview Note Information Obtained [...] reports she drove herself and parked in [facility] ER Garage and will drive herself home) (04/07/231204) Health Insurance Coverage: [place] Prescription Coverage: YES Pharmacy: Verified [facility] [address] [place], [place] - [address] [place] [address] [facility] - [place], [place] - [address] [facility] [address] [facility] [address] [place] [address] Primary Care Provider: Karson Ortiz MD Prior [...] ER and parked her car in the [facility] ER garage and will drive herself home [...] Collaboration with patient, MD, direct care nurse, Environmental Field Team Member, and other members of the health care team to assure needed interventions completed. 2. Return patient to optimal level of self-care post discharge. 3. Pig Furnace Operator will follow for Discharge Planning - interventions [...] with the aftercare plan. Rosalva Pozo RN E ASSEMBLY SET UP WORKER * Plan of Care - Amy Gage [...] ineffective tissue perfusion will decrease Outcome: Progressing E ASSEMBLY SET UP WORKER * Plan of Care - Duarte Lanier [...] ineffective tissue perfusion will decrease Outcome: Progressing E ASSEMBLY SET UP WORKER * ED Re-evaluation Note - Alexis Cordon [...] bridge on 11/28/2022 while jet skiing in [place]. Has developed chronic lesions to both [...] MD Thompson, Karima Arrianna, MD Resident 04/06/23 0782 E ASSEMBLY SET UP WORKER documented in this encounter Plan of Treatment Not on file documented as of this encounter Procedures Procedure Name Priority Date/Time Associated Diagnosis Comments TISSUE AEROBIC AND ANAEROBIC CULTURE AND GRAM STAIN Routine 04/07/2023 2:22 PM SCALE ASSEMBLY SET UP WORKER MYCOLOGY (FUNGAL) CULTURE AND STAIN Routine 04/07/2023 2:22 PM SCALE ASSEMBLY SET UP WORKER MYCOBACTERIOLOGY AFB CULTURE AND ACID-FAST STAIN Routine 04/07/2023 2:22 PM SCALE ASSEMBLY SET UP WORKER SURGICAL PATHOLOGY Routine 04/07/2023 2: 21 PM SCALE ASSEMBLY SET UP WORKER MISCELLANEOUS MICROBIOLOGY TEST Routine 04/07/2023 2:15 PM SCALE ASSEMBLY SET UP WORKER HISTOPLASMA ANTIBODY Timed 04/07/2023 2:00 PM SCALE ASSEMBLY SET UP WORKER BLASTOMYCES ANTIBODY, EIA, S Timed 04/07/2023 2:00 PM SCALE ASSEMBLY SET UP WORKER BARTONELLA ANTIBODY PANEL Routine 04/07/2023 2:00 PM SCALE ASSEMBLY SET UP WORKER HISTOPLASMA ANTIGEN STAT 04/06/2023 1 0:48 PM SCALE ASSEMBLY SET UP WORKER CRYPTOCOCCAL ANTIGEN, SERUM STAT 04/06/2023 10:48 PM SCALE ASSEMBLY SET UP WORKER POCT RAPID HIV ANTIBODY COMMUNITY SCREENING-MARIELLE ELIGIBLE Routine 04/06/2023 10:30 PM SCALE ASSEMBLY SET UP WORKER EGFR STAT 04/06/2023 10:30 PM SCALE ASSEMBLY SET UP WORKER DIFFERENTIAL AUTO STAT 04/06/2023 10: 30 PM SCALE ASSEMBLY SET UP WORKER CBC WITH AUTO DIFFERENTIAL STAT 04/06/2023 10:30 PM SCALE ASSEMBLY SET UP WORKER ERYTHROCYTE SEDIMENTATION RATE STAT 04/06/2023 10:30 PM SCALE ASSEMBLY SET UP WORKER CRP (ACUTE PHASE) STAT 04/06/2023 10: 30 PM SCALE ASSEMBLY SET UP WORKER IGA Routine 04/06/2023 10:30 PM SCALE ASSEMBLY SET UP WORKER IGM STAT 04/06/2023 10:30 PM SCALE ASSEMBLY SET UP WORKER IGG Routine 04/06/2023 10:30 PM SCALE ASSEMBLY SET UP WORKER VALPROIC ACID LEVEL, TOTAL STAT 04/06/2023 10:30 PM SCALE ASSEMBLY SET UP WORKER COMPREHENSIVE METABOLIC PANEL STAT 04/06/2023 10:30 PM SCALE ASSEMBLY SET UP WORKER documented in this encounter Results * Mycology (fungal) culture and stain Biopsy Leg, right (04/07/2023 2:22 PM SCALE ASSEMBLY SET UP WORKER) Direct Specimen Exam Stain: No Fungal elements seen. [facility] Report Final Report: No growth of fungus [facility] Biopsy (Leg, right) 04/07/2023 2:22 PM SCALE ASSEMBLY SET UP WORKER 04/07/2023 4:06 PM SCALE ASSEMBLY SET UP WORKER Narrative [facility] - 05/05/2023 8:56 AM SCALE ASSEMBLY SET UP WORKER Testing performed by [facility] Microbiology Laboratory ([phone]). Alexus Martin MD LAB [facility]BIOLOGY - [facility] Final Result [facility] Department [place] [address] * Tissue aerobic and anaerobic culture and gram stain Biopsy Leg, right (04/07/2023 2:22 PM SCALE ASSEMBLY SET UP WORKER) Direct Specimen Exam Stain: No polymorphonuclear leukocytes seen. No organisms seen. [facility] Report Final Report: Rare Mixed skin microorganisms. [facility] Organism MIXED SKIN MICROORGANISMS. [facility] Biopsy (Leg, right) 04/07/2023 2:22 PM SCALE ASSEMBLY SET UP WORKER 04/07/2023 4:06 PM SCALE ASSEMBLY SET UP WORKER Narrative [facility] - 04/20/2023 1:50 PM SCALE ASSEMBLY SET UP WORKER Testing performed by [facility] ([phone]) Specimens submitted from normally sterile body sites [...] CHANTEL MARK Final Result Performing Organization Address City/[facility]/ZIP Co de Phone Number [facility] Department [place] [address] * (ABNORMAL) Mycobacteriology (AFB) culture and acid-fast stain Biopsy Leg, right (04/07/2023 2:22 PMCST) Direct Specimen Exam Stain: No Acid-fast bacilli seen [facility] Report Final Report: 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 * ??* ??* ??* ??* ??* ??* ??* ??* ??* ??* ??* ??* ??* ??* ??* ??* ??* ??* ??* (.) [facility] Organism MYCOBACTERIUM MARINUM [facility] Biopsy (Leg, right) 04/07/2023 2:22 PM SCALE ASSEMBLY SET UP WORKER 04/07/2023 4:06 PM SCALE ASSEMBLY SET UP WORKER Narrative [facility] - 06/15/2023 12:51 PM SCALE ASSEMBLY SET UP WORKER Testing performed by [facility] ([phone]). Alexus Martin MD LAB MICROBIOLOGY - [facility] CHANTEL MARK Final Result Performing Organization Address [facility]/ZIP Co de Phone Number [facility] Department [place] [address] * Surgical pathology (04/07/2023 2:21 PM SCALE ASSEMBLY SET UP WORKER) Tissue (Skin, biopsy) 04/07/2023 2:21 PM SCALE ASSEMBLY SET UP WORKER 04/07/2023 2:31 PM SCALE ASSEMBLY SET UP WORKER Narrative PATHOLOGY [facility] - 04/11/2023 11:49 AM SCALE ASSEMBLY SET UP WORKER EPIC results best viewed via link to PDF [facility] [place] [address] Note to Patients: This report may contain [...] Gender: ??F : ??1995 (Age: 27) Address: ??[address] [place] [address] [facility] #: ??[id number] Taken:04/07/2023 Received:04/07/2023 Reported: 04/11/2023 Patient Type: [facility] Inpatient ?? Service: Medical Location: [facility] ED Physician(s): ??Alexus Martin M.D. Diagnosis: A. [...] Dermatopathology Center, ??Department of Pathology ??and Immunology, [facility], [address] [place] [address], [address], [place], [place] ??[address] ?? CLIA # [id number] History: The patient is a 27-year-old woman [...] Surgical Pathology and Flow Cytometry Departments at [facility] as part of an ongoing quality improvement manager program and in compliance with federally mandated [...] Surgical Pathology and Flow Cytometry Departments of [facility]. ??It has not been cleared or approved by the U. S. Food and Drug Administration. IMAGES AND SCANNED DOCUMENTS, IF INCLUDED, ONLY VIEWABLE IN PDF VERSION OF REPORT us Alexus Martin MD LAB PATHOLOGY ORDERABLES Final Result Performing Organization Address City/[facility]/ZIP Co de Phone Number PATHOLOGY [facility] 3rd Floor [place], [place] [phone] * (ABNORMAL) Miscellaneous microbiology test Miscellaneous Miscellaneous (04/07/2023 2:15 PM SCALE ASSEMBLY SET UP WORKER) Report Final Report: Mycobacterium marinum For additional result information, see attached scanned report. Notification of: Mycobacterium marinum called to and read back by: Duglas Solis [phone] on 04/27/2023 13:24:38 by: Trent Cabrera MLS (.) [facility] Organism MYCOBACTERIUM MARINUM [facility] Miscellaneous (Miscellaneous) 04/07/2023 2:15 PM SCALE ASSEMBLY SET UP WORKER 04/11/2023 2:15 PM SCALE ASSEMBLY SET UP WORKER Narrative [facility] - 04/27/2023 1:24 PM SCALE ASSEMBLY SET UP WORKER Test AFB PCR Testing Specimen ??biopsy right leg [facility] Microbiology Laboratory ([phone]) us Maria Isabel Reid MD LAB MICROBIOLOGY - GENERAL O RDERABLES Final Result Performing Organization Address City/[facility]/ZIP Co de Phone Number [facility] Department [place] [address] * Bartonella antibody panel Blood (04/07/2023 2:00 PM SCALE ASSEMBLY SET UP WORKER) B Henselae, IgG <1:128 <1:128 titer [facility] B Henselae, IgM <1:20 <1:20 titer [facility] B. Hagan, IgG <1:128 <1:128 titer [facility] B. Hagan, IgM <1:20 <1:20 titer [facility] Comment: ADDITIONAL INFORMATION This test was developed and its performance characteristics determined by [facility] in a manner consistent with CLIA requirements. This test has not been cleared or approved by the U.S. Food and Drug Administration. Test Performed by: [facility] [place] [address] Golf Club Assembler: Rosales Alba M.D. Ph.D.; CLIA# [id number] Blood 04/07/2023 2:00 PM SCALE ASSEMBLY SET UP WORKER 04/07/2023 6:47 PM SCALE ASSEMBLY SET UP WORKER Maria Isabel Reid MD LAB MICROBIOLOGY - GENERAL O RDERABLES Final Result [facility] Department [place] [address] * Blastomyces antibody, EIA, serum Blood (04/07/2023 2:00 PM SCALE ASSEMBLY SET UP WORKER) [facility] Blastomyces Antibody Negative Negative [facility] Comment: A single negative result does not exclude the diagnosis of blastomycosis. ??Repeat testing on a new sample in 7-14 days if clinically indicated. Test Performed by: [place] [address] Golf Club Assembler: Rosales Alba M.D. Ph.D.; CLIA# [id number] Blood 04/07/2023 2:00 PM SCALE ASSEMBLY SET UP WORKER 04/07/2023 2:59 PM SCALE ASSEMBLY SET UP WORKER us Maria Isabel Reid MD LAB MICROBIOLOGY - GENERAL O RDERABLES Final Result Performing Organization Address [facility] Co de Phone Number [facility] [place] [address] * Histoplasma Antibody Blood (04/07/2023 2:00 PM SCALE ASSEMBLY SET UP WORKER) Histoplasma Ab, mycelial CF Negative Negative [facility] Histoplasma Ab, yeast CF Negative Negative [facility] Histoplasma Ab, Immunodiffusion Negative Negative [facility] Comment: A negative complement fixation and immunodiffusion (CF/ID) result does not exclude the diagnosis of histoplasmosis. ?? Repeat testing by CF/ID in 1-2 weeks if clinically indicated. Test Performed by: [place] [address] [employer]: Rosales Alba M.D. Ph.D.; IA# [id number] Blood 04/07/2023 2:00 PM SCALE ASSEMBLY SET UP WORKER 04/07/2023 2:59 PM SCALE ASSEMBLY SET UP WORKER us Maria Isabel Reid MD LAB MICROBIOLOGY - GENERAL O RDERABLES Final Result Performing Organization Address [facility] de Phone Number [facility] [place] [address] * Cryptococcal Antigen, Serum Blood (04/06/2023 10:48 PM SCALE ASSEMBLY SET UP WORKER) Cryptococcus ag, Serum Negative Negative [facility] Comment: The cryptococcal antigen test was performed [...] revised 2018. Blood 04/06/2023 10:4 8 PM SCALE ASSEMBLY SET UP WORKER 04/06/2023 10:55 PM SCALE ASSEMBLY SET UP WORKER Thang Tinoco MD LAB MICROBIOLOGY - GE NERAL ORDERABLES Final Result Performing Organization Address [facility] de Phone Number [facility] [employer] [address] * Histoplasma Antigen Urine (04/06/2023 10:48 PM SCALE ASSEMBLY SET UP WORKER) Pathologist [facility] Histo Ag Ur result None Detected None Detected [facility] Histo Ag Ur interp Negative Negative [facility] Comment: Result Interpretation: Reference interval: None Detected Results reported as ng/mL in 0.20 - 20.00 ng/mL range Results above 20.00 ng/mL are reported as 'Positive, Above the Limit of Quantification' Testing Performed by: [facility], [address] [place] [address] [place] [facility]. This test was developed and its performance characteristics determined by [facility]. It has not been cleared or approved by the FDA; however, FDA clearance or approval is not currently required for clinical use. The results are not intended to be used as the sole means for clinical diagnosis or patient management decisions. Interpretative data updated 07/27/2020 Urine 04/06/2023 10:4 8 PM SCALE ASSEMBLY SET UP WORKER 04/06/2023 10:55 PM SCALE ASSEMBLY SET UP WORKER Thang Tinoco MD LAB MICROBIOLOGY - GE NERAL ORDERABLES Final Result Performing Organization Address [facility] de Phone Number [facility] [employer] [address] * eGFR (04/06/2023 10:30 PM SCALE ASSEMBLY SET UP WORKER) Pathologist [facility] eGFR >90 >=60 mL/min/1. 73 m2 [facility] Comment: Interpretive Data Reference Interval Normal ?>/= [...] reviewed 2021. Blood 04/06/2023 10:3 0 PM SCALE ASSEMBLY SET UP WORKER 04/06/2023 10:42 PM SCALE ASSEMBLY SET UP WORKER us Vanna Georges MD LAB BLOOD ORDERABLES Final Re sult [facility] Department [place] [address] * (ABNORMAL) Differential, auto (04/06/2023 10:30 PM SCALE ASSEMBLY SET UP WORKER) Neutrophil abs 4.6 1.7 - 6.5 K/cumm [facility] Imm gran abs 0.0 0.0 - 0.1 K/cumm [facility] Lymphocyte abs 3.2 0.8 - 3.3 K/cumm [facility] Monocyte abs 1.4(H) 0.2 - 0.8 K/cumm [facility] Eosinophil abs 0.2 0.0 - 0.5 K/cumm [facility] Basophil abs 0.1 0.0 - 0.1 K/cumm [facility] Neutrophil pct 48.0 % [facility] Comment: Interpretive Data Percent cell count reference ranges are not reported, since discordance with absolute values may lead to misinterpretation of CBC data. Current Interpretive Data was last revised on 2017. Imm gran pct 0.1 % [facility] Comment: Interpretive Data Percent cell count reference ranges are not reported, since discordance with absolute values may lead to misinterpretation of CBC data. Current Interpretive Data was last revised on 2017. Lymphocyte pct 33.8 % [facility] Comment: Interpretive Data Percent cell count reference ranges are not reported, since discordance with absolute values may lead to misinterpretation of CBC data. Current Interpretive Data was last revised on 2017. Monocyte pct 15.1 % [facility] Comment: Interpretive Data Percent cell count reference ranges are not reported, since discordance with absolute values may lead to misinterpretation of CBC data. Current Interpretive Data was last revised on 2017. Eosinophil pct 2.1 % [facility] Comment: Interpretive Data Percent cell count reference ranges are not reported, since discordance with absolute values may lead to misinterpretation of CBC data. Current Interpretive Data was last revised on 2017. Basophil pct 0.9 % [facility] Comment: Interpretive Data Percent cell count reference ranges are not reported, since discordance with absolute values may lead to misinterpretation of CBC data. Current Interpretive Data was last revised on 2017. Blood 04/06/2023 10:3 0 PM SCALE ASSEMBLY SET UP WORKER 04/06/2023 10:41 PM SCALE ASSEMBLY SET UP WORKER us Vanna Georges MD LAB BLOOD ORDERABLES Final Re sult [facility] Department [place] [address] * IgA (04/06/2023 10:30 PM SCALE ASSEMBLY SET UP WORKER) Immunoglobulin A 137.0 70.0 - 400.0 mg/dL [facility] Blood 04/06/2023 10:3 0 PM SCALE ASSEMBLY SET UP WORKER 04/06/2023 10:42 PM SCALE ASSEMBLY SET UP WORKER us Vanna Georges MD LAB BLOOD ORDERABLES Final Re sult Performing Organization Address [facility] Co de Phone Number [facility] [employer] [address] * IgM (04/06/2023 10:30 PM SCALE ASSEMBLY SET UP WORKER) Pathologist [facility] Immunoglobulin M 179.0 40.0 - 230.0 mg/dL [facility] Blood 04/06/2023 10:3 0 PM SCALE ASSEMBLY SET UP WORKER 04/06/2023 10:42 PM SCALE ASSEMBLY SET UP WORKER Result Shayla Georges MD LAB BLOOD ORDERABLES Final Re sult Performing Organization Address [facility] de Phone Number [facility] [employer] [address] * IgG (04/06/2023 10:30 PM SCALE ASSEMBLY SET UP WORKER) [facility] Immunoglobulin G 1,254.0 700.0 - 1,600.0 mg/dL [facility] Blood 04/06/2023 10:3 0 PM SCALE ASSEMBLY SET UP WORKER 04/06/2023 10:42 PM SCALE ASSEMBLY SET UP WORKER us Vanna Georges MD LAB BLOOD ORDERABLES Final Re sult Performing Organization Address [facility] de Phone Number [facility] [employer] [address] * POCT rapid HIV (04/06/2023 10:30 PM SCALE ASSEMBLY SET UP WORKER) [facility] Rapid HIV, POC Negative Negative Lot Number [id number] QC Control Line Acceptable Blood 04/06/2023 10:3 0 PM SCALE ASSEMBLY SET UP WORKER us Vanna Georges MD POINT OF CARE TEST ORDERABLES Final Result * (ABNORMAL) CRP (acute phase) (04/06/2023 10:30 PM SCALE ASSEMBLY SET UP WORKER) CRP 17.0(H) <=10.0 mg/L [facility] Blood 04/06/2023 10:3 0 PM SCALE ASSEMBLY SET UP WORKER 04/06/2023 10:42 PM SCALE ASSEMBLY SET UP WORKER Vanna Georges MD LAB BLOOD ORDERABLES Final Re sult Performing Organization Address [facility]/ZIP Co de Phone Number [facility] Department [place] [address] * Erythrocyte sedimentation rate (04/06/2023 10:30 PM SCALE ASSEMBLY SET UP WORKER) Pathologist [facility] Erythrocyte sedimentation rate 17 1 - 20 mm/hr [facility] Blood 04/06/2023 10:3 0 PM SCALE ASSEMBLY SET UP WORKER 04/06/2023 10:41 PM SCALE ASSEMBLY SET UP WORKER Vanna Georges MD LAB BLOOD ORDERABLES Final Re sult Performing Organization Address [facility] de Phone Number [facility] [place] [address] * Comprehensive metabolic panel (04/06/2023 10:30 PM SCALE ASSEMBLY SET UP WORKER) Pathologist [facility] Sodium 137 135 - 145 mmol/L [facility] Potassium, pl See Comment 3.3 - 4.9 mmol/L [facility] Comment:Credited; Hemolyzed Specimen Chloride 106 97 - 110 mmol/L [facility] CO2 26 22 - 32 mmol/L [facility] Anion gap 5 2 - 15 mmol/L [facility] BUN 11 6 - 25 mg/dL [facility] Creatinine 0.73 0.60 - 1.10 mg/dL [facility] Glucose 84 70 - 199 mg/dL [facility] Comment: Interpretive Data Fasting glucose >/= 126 [...] 2022. Calcium 9.8 8.5 - 10.3 mg/dL [facility] Bilirubin, total 0.2 0.1 - 1.2 mg/dL [facility] Protein, pl 8.4 6.5 - 8.5 g/dL [facility] Albumin 4.2 3.5 - 5.0 g/dL [facility] Alk phos 55 40 - 130 Units/L [facility] Comment:Hemolyzed; result ma y be falsely decreased ALT See Comment 7 - 45 Units/L [facility] Comment:Credited; Hemolyzed Specimen AST See Comment 10 - 45 Units/L [facility] Comment:Credited; Hemolyzed Specimen Blood 04/06/2023 10:3 0 PM SCALE ASSEMBLY SET UP WORKER 04/06/2023 10:42 PM SCALE ASSEMBLY SET UP WORKER us Vanna Georges MD LAB BLOOD ORDERABLES Final Re sult [facility] Department [place] [address] * CBC with auto differential (04/06/2023 10:30 PM SCALE ASSEMBLY SET UP WORKER) WBC 9.5 3.8 - 9.9 K/cumm [facility] Hgb 13.8 11.9 - 15.5 g/dL [facility] Comment: Interpretive Data A reference range for this assay has not been established for patients with an unknown legal sex. Please refer to the laboratory test catalog for established sex-specific reference intervals. Current interpretive data was last revised on 2023. Hct 42.2 35.6 - 45.5 % [facility] Comment: Interpretive Data A reference range for this assay has not been established for patients with an unknown legal sex. Please refer to the laboratory test catalog for established sex-specific reference intervals. Current interpretive data was last revised on 2023. Plt 351 150 - 400 K/cumm [facility] MPV 10.0 9.1 - 12.3 fL [facility] RBC 4.79 3.90 - 5.20 M/cumm [facility] Comment: Interpretive Data A reference range for this assay has not been established for patients with an unknown legal sex. Please refer to the laboratory test catalog for established sex-specific reference intervals. Current interpretive data was last revised on 2023. MCV 88.1 81.3 - 96.4 fL [facility] MCH 28.8 27.1 - 33.3 pg [facility] MCHC 32.7 32.3 - 35.7 g/dL [facility] RDW CV 13.3 11.1 - 14.9 % [facility] RDW SD 43.0 35.7 - 48.1 fL [facility] NRBC abs 0.00 0.00 - 0.01 K/cumm [facility] Blood 04/06/2023 10:3 0 PM SCALE ASSEMBLY SET UP WORKER 04/06/2023 10:41 PM SCALE ASSEMBLY SET UP WORKER Vanna Georges MD LAB BLOOD ORDERABLES Final Re sult Performing Organization Address [facility] de Phone Number [facility] Department [place] [address] * (ABNORMAL) Valproic acid level, total (04/06/2023 10:30 PM SCALE ASSEMBLY SET UP WORKER) Valproic Acid <15.0(L) 50.0 - 100.0 mcg/mL [facility] Comment: Interpretive Data Therapeutic or toxic effects of anticonvulsant drugs may occur at different concentrations in different patients and the correlation between dose and clinical effect must be evaluated individually. Current interpretative data was last revised on 13. Blood 04/06/2023 10:3 0 PM SCALE ASSEMBLY SET UP WORKER 04/06/2023 10:42 PM SCALE ASSEMBLY SET UP WORKER us Vanna Georges MD LAB BLOOD ORDERABLES Final Re sult Performing Organization Address [facility] Co de Phone Number [facility] Department [place] [address] documented in this encounter Visit Diagnoses Diagnosis [...] Fever, PainIndications:Fever,P ain Given 04/07/2023 2:59 PM SCALE ASSEMBLY SET UP WORKER 1,000 mg azaTHIOprine (IMURAN) tablet 50 mg [...] Vein Thrombosis Prevention Given 04/07/2023 8:28 AM SCALE ASSEMBLY SET UP WORKER 40 mg Right Lower Abdomen montelukast (SINGULAIR) tablet 10 mg 10 mg, oral, Daily, First dose (after last modification) on Mon04/08/23 at 0900 norgestimate-ethinyl estradioL (ORTHO-CYCLEN) 0.25-35 mg-mcg per tablet 1 tablet 1 tablet, oral, Daily, First dose on Mon04/07/23 at 1300 Given 04/07/2023 1:00 PM SCALE ASSEMBLY SET UP WORKER 1 tablet prochlorperazine (COMPAZINE) injection 5 mg [...] type and size. Given 04/07/2023 2:18 PM SCALE ASSEMBLY SET UP WORKER 20 mL sodium chloride 0.9% flush 0.5-20 mL 0.5-20 mL, intra-catheter, Every 8 hours scheduled, First dose on Mon04/07/23 at 0600, Flush volume based on line type and size. Given 04/07/2023 2:19 PM SCALE ASSEMBLY SET UP WORKER 10 mL sodium chloride 0.9% flush 0.5-20 [...] Recently Administered Medications Times are shown in SCALE ASSEMBLY SET UP WORKER. 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
== END 2024-06-01 08:42 | disposition home or self-care (01) ==
PROVIDERS: Emergency Provider Nurse Practitioner
DX: J40 Bronchitis, not specified as acute or chronic (principal); J01.90 Acute sinusitis, unspecified; R09.82 Postnasal drip; J06.9 Acute upper respiratory infection, unspecified
CPT/HCPCS: 99213; G0463